=== PATIENT | female | born 1955 | race African-American/Black ===

== ENCOUNTER 2016-08-25 18:38 | Emergency (ER) | payer OTHER ==
[~2016-08-25 18:38] MED LIST: ALBU8.5H6 IH; AMLO10TA2 PO; ASPI1POW PO; CEPH500C PO; CHOL100017 PO; CITA20SO PO; CLON0.2T PO; FURO-68 PO; GLIM1TAB2 PO; HYDR-2762 PO; LEVO500T38 PO; LOSA100T6 PO; METF500T4 PO; METO50TA2 PO; METR500T PO; NITR0.4T SL; PANT40TA3 PO; POTA20TA12 PO
[2016-08-25 21:09] VITALS: BP 147/99
--- NOTE | 2016-08-25 21:17 | RAD ---
PROCEDURE CT head without contrast. CT cervical spine without contrast. HISTORY Fall, hit head, headache, right-sided neck pain TECHNIQUE Exposure: One or more of the following individualized dose reduction techniques were utilized for this exam: 1. Automated exposure control. 2. Adjustment of the mA and/or kV according to patient size. 3. Use of iterative reconstruction technique. [address] imaging skullbase to vertex. Helical noncontrast CT imaging of the cervical spine. COMPARISON CT head November 10, [address] Head: no intracranial hemorrhage, mass, hydrocephalus or infarction. Cerebral periventricular white matter hypoattenuation presumably chronic microvascular ischemic demyelination. Orbits, paranasal sinuses, mastoids and bones are unremarkable. CT cervical spine: Craniocervical junction intact. Cervical vertebral body height and alignment intact. No fracture of the cervical spine. Multilevel disc osteophytes with multilevel neural foraminal stenoses. Regions of mild spinal canal stenosis not excluded. Lung apices and paraspinal tissues are unremarkable. Posterior of the left thyroid lobe there is a 2 centimeter oblong peripherally calcified nodule. IMPRESSION CT Head: No acute intracranial CT abnormality. CT cervical spine: No acute osseous injury. Disc disease as described above. 2 centimeter oblong peripherally calcified nodule posterior left thyroid lobe likely an exophytic thyroid nodule or parathyroid adenoma. Unusual location of a aneurysm would be a less likely consideration. Electronically signed by: Mook Jorge MD (August 25, 2016 21:16:37)
[2016-08-25] MEDS ORDERED: HYDR-971 PO (21:44)
--- NOTE | 2016-08-25 21:44 | PHYS DOC ---
Past Medical History Past Medical History: Asthma, Diabetes-Type II, GERD, GI Bleed, Hepatitis Additional Past Medical Histor: sleep apnea Past Surgical History: Other Additional Past Surgical Histo: Umbilical hernia repair Alcohol Use: None Drug Use: None Adult General Chief Complaint Chief Complaint: MECHANICAL FALL HPI HPI This is a 61-year-old female who states she was in her shower around 3 or 4 AM in the morning and while getting out and drying off and putting on her pants, she fell and injured her right shoulder. She does state she hit her head as well. She denies any loss of consciousness. She tried resting throughout the day but now has significant right shoulder tenderness that radiates somewhat into her right neck as well. She denies any chest pain or shortness of breath. She has a mild headache with her symptoms. She is fully alert and oriented at this time and in no acute distress. Review of Systems Review of Systems Constitutional: Denies fever or chills [] Eyes: Denies change in visual acuity, redness, or eye pain [] HENT: Denies nasal congestion or sore throat [] Respiratory: Denies cough or shortness of breath [] Cardiovascular: No additional information not addressed in HPI [] GI: Denies abdominal pain, nausea, vomiting, bloody stools or diarrhea [] : Denies dysuria or hematuria [] Musculoskeletal: Denies back pain, has joint pain [] Integument: Denies rash or skin lesions [] Neurologic: Has headache, denies focal weakness or sensory changes [] Endocrine: Denies polyuria or polydipsia [] Allergies Allergies Allergies Coded Allergies Type Severity Reaction Last Updated Verified Iodinated Contrast Media - IV Dye Allergy Intermediate 12/07/15 Yes Physical Exam Physical Exam Constitutional: Well developed, well nourished, no acute distress, non-toxic appearance. [] HENT: Normocephalic, atraumatic, bilateral external ears normal, oropharynx moist, no oral exudates, nose normal. [] Eyes: PERRLA, EOMI, conjunctiva normal, no discharge. [] Neck: Normal range of motion, no tenderness, supple, no stridor. [] Cardiovascular:Heart rate regular rhythm, no murmur [] Lungs & Thorax: Bilateral breath sounds clear to auscultation [] Abdomen: Bowel sounds normal, soft, no tenderness, no masses, no pulsatile masses. [] Skin: Warm, dry, no erythema, no rash. [] Back: No tenderness, no CVA tenderness. [] Extremities: Moderate tenderness to the right shoulder with limited ROM in the right shoulder secondary to pain, no cyanosis, no clubbing, ROM limited in right shoulder secondary to pain, no edema. [] Neurologic: Alert and oriented X 3, normal motor function, normal sensory function, no focal deficits noted. [] Psychologic: Affect normal, judgement normal, mood normal. [] Current Patient Data Vital Signs Vital Signs Date Time Temp Pulse Resp B/P (MAP) Pulse Ox O2 Delivery O2 Flow Rate FiO2 08/25/16 18:47 98.1 96 22 162/107 (125) 98 Room Air 98.1 EKG EKG [] Radiology/Procedures Radiology/Procedures PROCEDURE CT head without contrast. CT cervical spine without contrast. HISTORY Fall, hit head, headache, right-sided neck pain TECHNIQUE Exposure: One or more of the following individualized dose reduction techniques were utilized for this exam: 1. Automated exposure control. 2. Adjustment of the mA and/or kV according to patient size. 3. Use of iterative reconstruction technique. [address] imaging skullbase to vertex. Helical noncontrast CT imaging of the cervical spine. COMPARISON CT head November 10, [address] Head: no intracranial hemorrhage, mass, hydrocephalus or infarction. Cerebral periventricular white matter hypoattenuation presumably chronic microvascular ischemic demyelination. Orbits, paranasal sinuses, mastoids and bones are unremarkable. CT cervical spine: Craniocervical junction intact. Cervical vertebral body height and alignment intact. No fracture of the cervical spine. Multilevel disc osteophytes with multilevel neural foraminal stenoses. Regions of mild spinal canal stenosis not excluded. Lung apices and paraspinal tissues are unremarkable. Posterior of the left thyroid lobe there is a 2 centimeter oblong peripherally calcified nodule. IMPRESSION CT Head: No acute intracranial CT abnormality. CT cervical spine: No acute osseous injury. Disc disease as described above. 2 centimeter oblong peripherally calcified nodule posterior left thyroid lobe likely an exophytic thyroid nodule or parathyroid adenoma. Unusual location of a aneurysm would be a less likely consideration. Electronically signed by: Mook Jorge MD (August 25, 2016 21:16:37) DICTATED and SIGNED BY: MOOK JORGE MD DATE: 08/25/162115 CC: VISHAL MANE DO; RICKY PORTILLO MD ~ Two-view the right shoulder to her by me shows what appears to be a possible right humeral head fracture but no other obvious abnormality. One view of the chest as interpreted by me did not reveal an acute cardiopulmonary process Course & Med Decision Making Course & Med Decision Making Pertinent Labs and Imaging studies reviewed. (See chart for details) 61-year-old female who had a fall injury to her right shoulder and a head and neck CT that were negative for any acute abnormalities. Right shoulder film shows a possible humeral fracture. Patient will be placed in a sling and given pain control and told to follow closely with her primary care doctor in the next several days for her symptoms. I counseled her that we will have the radiologist read the film overnight and will call her for any updates. I told the patient to remain in sling until she can receive follow-up. Return precautions were provided and acknowledged by the patient. Dragon Disclaimer Dragon Disclaimer This electronic medical record was generated, in whole or in part, using a voice recognition dictation system. Departure Departure Impression: Primary Impression: Right shoulder injury Additional Impression: Fall Disposition: HOME, SELF-CARE Admitting Physician: Other Condition: STABLE Referrals: RICKY PORTILLO MD (PCP) Patient Instructions: Arm Sling Use, [id number], Fall Prevention and Home Safety, [id number], Shoulder Pain Additional Instructions: Please follow up with your primary doctor in the next 2-3 days for your symptoms. Remain in your sling until that time. Take your medications as prescribed. Return to the ER if you develop any worsening of your symptoms. Scripts Hydrocodone/Apap 5-325 (NORCO 5-325 TABLET) 1 Each Tablet 1 TAB PO PRN Q6HRS Y for PAIN, #10 TAB 0 Refills Prov: VISHAL MANE DO 08/25/16 Problem Qualifiers VISHAL MANE DO August 25, 2016 21:44
--- NOTE | 2016-08-26 07:14 | RAD ---
Indication: Fall and right shoulder pain. Time of exam 1942 hours. Correlation is made with prior study from 06/27/2008. The distal clavicle is projected cephalad to the acromion consistent with acromioclavicular separation. Glenohumeral alignment is normal. Acromiohumeral space is normal. No fractures are seen. Impression: Findings consistent with acromioclavicular joint separation.
--- NOTE | 2016-08-26 07:15 | RAD ---
Indication: Trauma and fall with back pain. Time of exam 1950 hours. Comparison is made with prior chest from 05/26/2016. The heart is mildly enlarged but stable. The lungs are clear. The pulmonary vascularity is normal. No infiltrate, effusion or pneumothorax is detected. Impression: No acute cardiopulmonary process is detected.
== END 2016-08-25 21:53 | disposition home or self-care (01) ==
LOC: ER 18:38
DX: S49.91XA Unspecified injury of right shoulder and upper arm, initial encounter (principal); S09.90XA Unspecified injury of head, initial encounter; S19.9XXA Unspecified injury of neck, initial encounter; J45.909 Unspecified asthma, uncomplicated; E11.9 Type 2 diabetes mellitus without complications; K21.9 Gastro-esophageal reflux disease without esophagitis; G47.30 Sleep apnea, unspecified; Z91.041 Radiographic dye allergy status; W01.198A Fall on same level from slipping, tripping and stumbling with subsequent striking against other object, initial encounter; Y93.E1 Activity, personal bathing and showering; Y92.89 Other specified places as the place of occurrence of the external cause; Y99.8 Other external cause status
CPT/HCPCS: 70450; 71010; 72125; 73030; 99284-25

== ENCOUNTER 2016-12-01 21:24 | Emergency (ER) | payer OTHER ==
[~2016-12-01] VITALS: Ht 152.4 cm; Wt 102.1 kg
[~2016-12-01 21:24] MED LIST changes: +HYDR-971 PO; -LEVO500T38 PO; +LEVO500T59 PO
--- NOTE | 2016-12-01 21:43 | PHYS DOC ---
Past Medical History Past Medical History: Asthma, Diabetes-Type II, GERD, GI Bleed, Hepatitis Additional Past Medical Histor: sleep apnea Past Surgical History: Other Additional Past Surgical Histo: Umbilical hernia repair Smoking: Cigarettes Alcohol Use: None Drug Use: None Adult General Chief Complaint Chief Complaint: MULTIPLE COMPLAINTS HPI HPI Patient is a 61 year old female who presents with multiple complaints. She states the one that is bothering her tonight the most is her abdominal pain. It is intermittent and is started on Thursday. Nausea with some dry heaves. She feels feverish but no temperature taken. No diarrhea or blood in her stools. No urinary complaints. Review of Systems Review of Systems Constitutional: Sweats Eyes: Denies change in visual acuity, redness, or eye pain HENT: Denies nasal congestion or sore throat Respiratory: Some cough no shortness of breath Cardiovascular: No chest pain GI: POS abdominal pain, nausea, no vomiting but dry heaves, no bloody stools or diarrhea : Denies dysuria or hematuria Musculoskeletal: Denies back pain or joint pain Integument: Denies rash or skin lesions Neurologic: Denies headache, focal weakness or sensory changes Current Medications Current Medications Current Medications Medications (Trade) Dose Ordered Sig/Howard Start Time Stop Time Status Last Admin Dose Admin Ondansetron HCl (Zofran) 4 mg 1X ONCE 12/01/16 22:00 12/01/16 22:01 DC 12/01/16 22:10 4 MG Sodium Chloride 1,000 ml @ 100 mls/hr Q10H 12/01/16 22:00 12/01/16 23:06 DC 12/01/16 22:11 100 MLS/HR Allergies Allergies Allergies Coded Allergies Type Severity Reaction Last Updated Verified Iodinated Contrast- Oral and IV Dye Allergy Intermediate 12/07/15 Yes Physical Exam Physical Exam Constitutional: Obese Well developed, well nourished, no acute distress, non- toxic appearance. HENT: Normocephalic, atraumatic, bilateral external ears normal, oropharynx moist, no oral exudates, nose normal. Eyes: PERRLA, EOMI, conjunctiva normal, no discharge. Neck: Normal range of motion, no tenderness, supple, no stridor. Cardiovascular:Heart rate regular rhythm, no murmur Lungs & Thorax: Bilateral breath sounds clear to auscultation Abdomen: well healed midline incisional scar. Diffuse tenderness; no rebound or guarding. Bowel sounds normal, soft, no masses, no pulsatile masses. Skin: Warm, dry, no erythema, no rash. Back: No tenderness, no CVA tenderness. Extremities: No tenderness, no cyanosis, no clubbing, ROM intact, no edema. Neurologic: Alert and oriented X 3, normal motor function, normal sensory function, no focal deficits noted. Current Patient Data Vital Signs Vital Signs Date Time Temp Pulse Resp B/P (MAP) Pulse Ox O2 Delivery O2 Flow Rate FiO2 12/01/16 22:06 70 132/79 (96) 94 Room Air 12/01/16 21:30 98.7 20 98.7 Lab Values Laboratory Tests Test 12/01/16 22:00 White Blood Count 7.0 x10^3/uL (4.0-11.0) Red Blood Count 5.67 x10^6/uL (3.50-5.40) H Hemoglobin 14.1 g/dL (12.0-15.5) Hematocrit 43.0 % (36.0-47.0) Mean Corpuscular Volume 76 fL (79-100) L Mean Corpuscular Hemoglobin 25 pg (25-35) Mean Corpuscular Hemoglobin Concent 33 g/dL (31-37) Red Cell Distribution Width 16.5 % (11.5-14.5) H Platelet Count 224 x10^3/uL (140-400) Neutrophils (%) (Auto) 57 % (31-73) Lymphocytes (%) (Auto) 30 % (24-48) Monocytes (%) (Auto) 7 % (0-9) Eosinophils (%) (Auto) 4 % (0-3) H Basophils (%) (Auto) 2 % (0-3) Neutrophils # (Auto) 4.0 x10^3uL (1.8-7.7) Lymphocytes # (Auto) 2.1 x10^3/uL (1.0-4.8) Monocytes # (Auto) 0.5 x10^3/uL (0.0-1.1) Eosinophils # (Auto) 0.3 x10^3/uL (0.0-0.7) Basophils # (Auto) 0.1 x10^3/uL (0.0-0.2) Platelet Estimate Adequate (ADEQUATE) Giant Platelets Few Sodium Level 138 mmol/L (136-145) Potassium Level 3.0 mmol/L (3.5-5.1) L Chloride Level 94 mmol/L (98-107) L Carbon Dioxide Level 32 mmol/L (21-32) Anion Gap 12 (6-14) Blood Urea Nitrogen 43 mg/dL (7-20) H Creatinine 2.2 mg/dL (0.6-1.0) H Estimated GFR (Cockcroft-Gault) 27.5 BUN/Creatinine Ratio 20 (6-20) Glucose Level 211 mg/dL (70-99) H Calcium Level 11.2 mg/dL (8.5-10.1) H Total Bilirubin 0.3 mg/dL (0.2-1.0) Direct Bilirubin 0.1 mg/dL (0.0-0.2) Aspartate Amino Transferase (AST) 15 U/L (15-37) Alanine Aminotransferase (ALT) 17 U/L (14-59) Alkaline Phosphatase 89 U/L (46-116) Creatine Kinase 88 U/L (26-192) Creatine Kinase MB (Mass) 1.1 ng/mL (0.0-3.6) Creatine Kinase MB Relative Index 1.3 % (0-4) Troponin I Quantitative < 0.017 ng/mL (0.000-0.055) Total Protein 8.0 g/dL (6.4-8.2) Albumin 3.6 g/dL (3.4-5.0) Albumin/Globulin Ratio 0.8 (1.0-1.7) L Lipase 201 U/L (73-393) Laboratory Tests 12/01/16 22:00 Laboratory Tests 12/01/16 22:00 EKG EKG EKG interpreted by myself at 2136 PM: NSR, rate 76, nonspecific ST changes. No STEMI Course & Med Decision Making Course & Med Decision Making Pertinent Labs and Imaging studies reviewed. (See chart for details) Evaluated patient upon arrival to room 23. She has many multiple complaints but the most concerning one to her is her abdominal pain. Evaluation proceeded for the abdominal pain. At 2230 PM I was getting ready to review my findings thus far (still have lab pending) and she signed out AMA. Unclear why she is leaving but I believe it had something to do with her children making her leave. Went back to review the remainder of her lab and her BUN and CR are elevated but K is 3.0 . No prior chemistries here. Dragon Disclaimer Dragon Disclaimer This electronic medical record was generated, in whole or in part, using a voice recognition dictation system. Departure Departure Impression: Primary Impression: Abdominal pain Disposition: 07 AGAINST MEDICAL ADVICE Referrals: RICKY PORTILLO MD (PCP) Problem Qualifiers Primary Impression: Abdominal pain Abdominal location: generalized Qualified Codes: R10.84 - Generalized abdominal pain MICHAEL IVERSON MD Dec 01, 2016 21:43
[2016-12-01] MEDS ORDERED: IV NORMAL SALINE 1000ML BAG 1,000 ML IV SCH (22:00)
[2016-12-01] MEDS ORDERED: ONDANSETRON PF 4 MG/2 ML VIAL. IV ONE (22:00)
[2016-12-01 22:06] VITALS: BP 132/79
[2016-12-01 22:12] LABS: BASO # 0.1 x10^3/uL (0.0-0.2); BASO % 2 % (0-3); EOS % 4 % (0-3); HEMOGLOBIN 14.1 g/dL (12.0-15.5); LYMPH # 2.1 x10^3/uL (1.0-4.8); LYMPH % 30 % (24-48); MEAN CORPUSCULAR HEMOGLOBIN 25 pg (25-35); MEAN CORPUSCULAR HGB CONC 33 g/dL (31-37); MEAN CORPUSCULAR VOLUME 76 fL (79-100); MONO % 7 % (0-9); NEUT % 57 % (31-73); PLATELET COUNT 224 x10^3/uL (140-400); RED BLOOD COUNT 5.67 x10^6/uL (3.50-5.40); RED CELL DISTRIBUTION WIDTH 16.5 % (11.5-14.5)
[2016-12-01 22:21] LABS: CALCIUM 11.2 mg/dL (8.5-10.1); CREATININE 2.2 mg/dL (0.6-1.0); GFR 27.5
[2016-12-01 22:28] LABS: ALBUMIN 3.6 g/dL (3.4-5.0); ALBUMIN/GLOBULIN RATIO 0.8 (1.0-1.7); DIRECT BILIRUBIN 0.1 mg/dL (0.0-0.2); TOTAL BILIRUBIN 0.3 mg/dL (0.2-1.0)
[2016-12-01 22:57] LABS: PLT ESTIMATE ADEQUATE (ADEQUATE)
[2016-12-01 23:17] LABS: CKMB MASS 1.1 ng/mL (0.0-3.6)
--- NOTE | 2016-12-02 07:03 | EKG ---
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
== END 2016-12-01 22:30 | disposition left against medical advice (07) ==
LOC: ER 21:24
DX: R10.84 Generalized abdominal pain (principal); R11.0 Nausea; R50.9 Fever, unspecified; R61 Generalized hyperhidrosis; E66.9 Obesity, unspecified; J45.909 Unspecified asthma, uncomplicated; E11.9 Type 2 diabetes mellitus without complications; K21.9 Gastro-esophageal reflux disease without esophagitis; G47.30 Sleep apnea, unspecified; F17.210 Nicotine dependence, cigarettes, uncomplicated; Z91.041 Radiographic dye allergy status; Z86.19 Personal history of other infectious and parasitic diseases; Z68.41 Body mass index [BMI] 40.0-44.9, adult
CPT/HCPCS: 36415; 80053; 80076; 82553; 83690; 84484; 85025; 93005; 96374; 99285; J2405; J7030

== ENCOUNTER → 2016-12-26 | Outpatient (CLI) | payer OTHER ==
[2016-12-01 22:06] VITALS: BP 132/79
--- NOTE | 2016-12-26 14:32 | KCIC ---
Right lower extremity venous doppler ultrasound History: Pain in right lower extremity Comparison: None Findings: Multiple grayscale, color, and duplex spectral analysis sonographic images were acquired of the right lower extremity veins to evaluate for the presence of DVT. There is normal phasicity. Normal compression, color-flow, and augmentation is demonstrated from the right common femoral to the popliteal veins. There is normal color flow of the proximal profunda femoris vein. There is normal color flow of segments of the calf veins. There is right groin lymph node up to 3.7 x 0.8 x 2.8 cm. There is edema of the soft tissues. Impression: 1. There is no evidence of deep venous thrombosis from the right common femoral to popliteal veins. 2. There is nonspecific right groin lymph node although not considered significantly enlarged in short axis dimension. 3. There is edema of the soft tissues. Electronically signed by: Vincent Cohen MD (12/26/2016 2:29 PM) [id number]
== END | disposition home or self-care (01) ==
LOC: KCIC US 13:11
PROVIDERS: ATTEND Family Medicine
DX: M79.604 Pain in right leg (principal); R60.0 Localized edema
CPT/HCPCS: 93971

== ENCOUNTER → 2017-02-06 | Outpatient (CLI) | payer OTHER ==
--- NOTE | 2017-02-10 15:51 | KCIC ---
DATE: 02/06/2017 EXAM: MAMMO DILCIA SCREENING BILATERAL HISTORY: Asymptomatic screening mammogram. COMPARISON: Prior mammogram from 11/24/2013, 08/06/2011 This study was interpreted with the benefit of Computerized Aided Detection (CAD). The breast parenchyma shows scattered fibroglandular densities. Breast parenchyma level B. FINDINGS: Bilateral CC and MLO views of the breasts were performed. Bilateral breast tomosynthesis was performed in CC and MLO projections. Right breast: There are no suspicious microcalcifications, masses or areas of architectural distortion. Left breast: There are no suspicious microcalcifications, masses or areas of architectural distortion. Findings are stable from prior mammogram. IMPRESSION: Negative bilateral mammogram. Recommend annual screening mammography. BI-RADS CATEGORY: 1 NEGATIVE RECOMMENDED FOLLOW-UP: 12M 12 MONTH FOLLOW-UP PQRS compliance statement: Patient information was entered into a reminder system with a target due date 02/06/2018 for the next mammogram. Mammography is a sensitive method for finding small breast cancers, but it does not detect them all and is not a substitute for careful clinical examination. A negative mammogram does not negate a clinically suspicious finding and should not result in delay in biopsying a clinically suspicious abnormality. "Our facility is accredited by the [employer] Mammography [employer]."
== END | disposition home or self-care (01) ==
LOC: KCIC MAMMO 15:45
PROVIDERS: ATTEND Family Medicine
DX: Z12.31 Encounter for screening mammogram for malignant neoplasm of breast (principal)
CPT/HCPCS: 77063; G0202; 77067

== ENCOUNTER → 2018-02-08 | Outpatient (CLI) | payer OTHER ==
[2017-02-25 14:37] VITALS: BP 162/97
[~2018-02-08] MED LIST changes: -AMLO10TA2 PO; +AMLO10TA6 PO; +ATEN50TA PO; +ATOR40TA59 PO; +BUTA1TAB23 PO; +DOCU-109 PO; +HYDR100T24 PO; +HYDR25TA9 PO; +INSU100V8 SQ; -LOSA100T6 PO; +LOSA100T7 PO; +LOSA1TAB7 PO; +METF500T16 PO; -METF500T4 PO; -METO50TA2 PO; +METO50TA6 PO; +MOME13HF2 IH; +POLY17PO29 PO; +PROVENTIL HFA6.7 GM IH
--- NOTE | 2018-02-08 17:23 | KCIC ---
History: Routine screening. Technique: Bilateral digital mammographic routine views were obtained with CAD - computer aided detection. Comparison: February 06, 2017. Findings: Breast Tissue Density B :The breast tissue is composed of mixed fatty and fibroglandular tissue. There are no suspicious masses, microcalcifications or areas of architectural distortion. Impression: Negative mammogram. BI-RADS Category 1: Negative. Normal interval followup. A mammogram does not have 100% sensitivity and therefore a negative imaging study should not delay further work up of a suspicious abnormality. The patient will receive a letter with the results in the mail. Patient information is entered into the reminder system with a target due date for the next screening mammogram. The patient will receive a reminder. "Our facility is accredited by the [employer] Mammography Program." Electronically signed by: Dave Oconnor III, MD (02/08/2018 5:20 PM) [id number]
== END | disposition home or self-care (01) ==
LOC: KCIC MAMMO 15:01
PROVIDERS: ATTEND Family Medicine
DX: Z12.31 Encounter for screening mammogram for malignant neoplasm of breast (principal)
CPT/HCPCS: 77067

== ENCOUNTER 2018-02-22 09:43 | Emergency (ER) | payer OTHER ==
[~2018-02-22] VITALS: Ht 152.4 cm; Wt 83.0 kg
[~2018-02-22 09:43] MED LIST changes: -ATEN50TA PO; -DOCU-109 PO; -HYDR100T24 PO; -HYDR25TA9 PO; -LOSA1TAB7 PO; -MOME13HF2 IH; -POLY17PO29 PO; -PROVENTIL HFA6.7 GM IH
[2018-02-22] MEDS ORDERED: ONDANSETRON PF 4 MG/2 ML VIAL. IV ONE (10:15)
[2018-02-22] MEDS ORDERED: MORPHINE SULFATE 4 MG/ML VIAL. IV ONE (10:15)
--- NOTE | 2018-02-22 10:36 | PHYS DOC ---
Past Medical History Past Medical History: Asthma, Diabetes-Type II, GERD, GI Bleed, Hypertension, Hepatitis Additional Past Medical Histor: sleep apnea Past Surgical History: Other Additional Past Surgical Histo: Umbilical hernia repair Alcohol Use: None Drug Use: None Adult General Chief Complaint Chief Complaint: ABDOMINAL PAIN [facility] HPI Patient is a 62 year old female who presents with abdominal pain. Patient has been having symptoms over the last 4 days. She describes diffuse abdominal pain with some distention. She has also been constipated over the same time. Patient does have a prior history of diverticulitis and did ultimately have to have some surgery following an episode of persistent bleeding. She also has had surgery on her abdomen for hernia repair. She denies vomiting but has had emesis. No fever. Denies urinary symptoms. No chest pain or shortness of breath. Review of Systems Review of Systems Constitutional: Denies fever Eyes: Denies change in visual acuity HENT: Denies nasal congestion Respiratory: Denies cough Cardiovascular: No additional information not addressed in HPI GI: Denies vomiting : Denies dysuria or hematuria Musculoskeletal: Denies back pain Integument: Denies rash Neurologic: Denies headache Endocrine: Denies polyuria All other systems were reviewed and found to be within normal limits, except as documented in this note. Current Medications Current Medications Current Medications Medications (Trade) Dose Ordered Sig/[facility] Start Time Stop Time Status Last Admin Dose Admin Clonidine HCl (Catapres) 0.2 mg 1X ONCE 02/22/18 12:15 02/22/18 12:16 DC 02/22/18 12:51 0.2 MG Morphine Sulfate (Morphine Sulfate) 4 mg 1X ONCE 02/22/18 10:15 02/22/18 10:20 DC 02/22/18 10:56 4 MG Ondansetron HCl (Zofran) 4 mg 1X ONCE 02/22/18 10:15 02/22/18 10:20 DC 02/22/18 10:53 4 MG Allergies Allergies Allergies Coded Allergies Type Severity Reaction Last Updated Verified Iodinated Contrast- Oral and IV Dye Allergy Intermediate 12/07/15 Yes Physical Exam Physical Exam Constitutional: Well developed, well nourished, appears uncomfortable 2/2 pain HENT: Normocephalic, atraumatic, bilateral external ears normal, oropharynx moist Eyes: PERRLA, EOMI, conjunctiva normal Neck: Normal range of motion Cardiovascular:Heart rate regular rhythm, no murmur Lungs & Thorax: Bilateral breath sounds clear to auscultation Abdomen: mildly distended abdomen with diffuse TTP but no guarding or rebound Skin: Warm, dry, no erythema Extremities: No edema Neurologic: Alert and oriented X 3 Psychologic: Affect normal Current Patient Data Vital Signs Vital Signs Date Time Temp Pulse Resp B/P (MAP) Pulse Ox O2 Delivery O2 Flow Rate FiO2 02/22/18 12:51 74 193/103 02/22/18 10:56 91 Room Air 02/22/18 09:44 99.5 20 99.5 Lab Values Laboratory Tests Test 02/22/18 09:54 02/22/18 10:43 02/22/18 11:03 Urine Collection Type Void Urine Color Yellow Urine Clarity Clear Urine pH 7.0 Urine Specific [place] 1.015 Urine Protein >=300 mg/dL (NEG-TRACE) Urine Glucose (UA) Negative mg/dL (NEG) Urine Ketones (Stick) Negative mg/dL (NEG) Urine Blood Negative (NEG) Urine Nitrite Negative (NEG) Urine Bilirubin Negative (NEG) Urine Urobilinogen Dipstick 1.0 mg/dL (0.2 mg/dL) Urine Leukocyte Esterase Negative (NEG) Urine RBC Occ /HPF (0-2) Urine WBC 1-4 /HPF (0-4) Urine Squamous Epithelial Cells Mod /LPF Urine Bacteria Few /HPF (0-FEW) White Blood Count 11.4 x10^3/uL (4.0-11.0) H Red Blood Count 5.53 x10^6/uL (3.50-5.40) H Hemoglobin 13.7 g/dL (12.0-15.5) Hematocrit 42.4 % (36.0-47.0) Mean Corpuscular Volume 77 fL (79-100) L Mean Corpuscular Hemoglobin 25 pg (25-35) Mean Corpuscular Hemoglobin Concent 32 g/dL (31-37) Red Cell Distribution Width 17.0 % (11.5-14.5) H Platelet Count 265 x10^3/uL (140-400) Neutrophils (%) (Auto) 65 % (31-73) Lymphocytes (%) (Auto) 23 % (24-48) L Monocytes (%) (Auto) 8 % (0-9) Eosinophils (%) (Auto) 3 % (0-3) Basophils (%) (Auto) 1 % (0-3) Neutrophils # (Auto) 7.4 x10^3uL (1.8-7.7) Lymphocytes # (Auto) 2.6 x10^3/uL (1.0-4.8) Monocytes # (Auto) 0.9 x10^3/uL (0.0-1.1) Eosinophils # (Auto) 0.3 x10^3/uL (0.0-0.7) Basophils # (Auto) 0.1 x10^3/uL (0.0-0.2) Sodium Level 147 mmol/L (136-145) H Potassium Level 3.5 mmol/L (3.5-5.1) Chloride Level 105 mmol/L (98-107) Carbon Dioxide Level 32 mmol/L (21-32) Anion Gap 10 (6-14) Blood Urea Nitrogen 30 mg/dL (7-20) H Creatinine 2.3 mg/dL (0.6-1.0) H Estimated GFR (Cockcroft-Gault) 26.1 Glucose Level 69 mg/dL (70-99) L Calcium Level 10.0 mg/dL (8.5-10.1) Total Bilirubin 0.2 mg/dL (0.2-1.0) Direct Bilirubin 0.1 mg/dL (0.0-0.2) Aspartate Amino Transferase (AST) 22 U/L (15-37) Alanine Aminotransferase (ALT) 30 U/L (14-59) Alkaline Phosphatase 117 U/L (46-116) H Troponin I Quantitative 0.051 ng/mL (0.000-0.055) KA-Raq-G-Type Natriuretic Peptide 1835 pg/mL (0-124) H Total Protein 6.9 g/dL (6.4-8.2) Albumin 3.0 g/dL (3.4-5.0) L Lipase 190 U/L (73-393) Lactic Acid Level 1.0 mmol/L (0.4-2.0) Laboratory Tests 02/22/18 10:43 Laboratory Tests 02/22/18 10:43 EKG EKG No STEMI Interpretation Time: 10:48 Radiology/Procedures Radiology/Procedures Findings: Limited images of lung bases are clear. Heart size upper limits of normal. Small pericardial effusion. No significant pleural effusion. Solid abdominal viscera not well evaluated in the absence of contrast material. No apparent attenuation abnormality of the liver or spleen. Pancreas, adrenal glands and gallbladder are unremarkable. 5 mm calcific stone at the lower pole right kidney. 3 mm calcific stone at the left kidney midpole. No apparent ureteral stone or hydronephrosis. Mild inflammatory stranding in the perinephric fat, increased from prior exam. Calcifications at the ovaries and along the gonadal veins, unchanged. There is a exophytic 1.4 cm low-density focus at the lower pole left kidney that measures 26 Hounsfield units. This measured about 7 mm previously. Unopacified GI tract normal in caliber and contour. No focal bowel wall thickening. No inflammatory stranding in the mesentery. No ascites or lymphadenopathy. The appendix is not clearly identified. No inflammatory changes in the right lower quadrant. There are a few scattered diverticula within the colon. No pericolic inflammatory changes. The abdominal aorta is normal in caliber. No retroperitoneal or mesenteric lymphadenopathy. Images of the pelvis show mildly distended urinary bladder. Uterus and adnexa are unremarkable. No free fluid or lymphadenopathy. Bone windows show no acute findings. Mild multilevel spondylosis. IMPRESSION: 1. Bilateral nephrolithiasis, nonobstructive. 2. Mild inflammatory stranding in the bilateral perinephric fat, new from prior study, nonspecific. This could be related to medical renal disease or pyelonephritis. Correlate clinically. 3. Small exophytic 1.4 cm low-density focus at the lower pole left kidney appears to somewhat increased in size and measures about 26Hounsfield units . This is indeterminate. Follow-up dedicated renal CT with and without contrast or ultrasound. 4. Diverticulosis with no evidence of acute diverticulitis. 5. Small pericardial effusion. Course & Med Decision Making Course & Med Decision Making Pertinent Labs and Imaging studies reviewed. (See chart for details) 10:10: Patient is seen and examined. Orders for standard abdominal pain workup. Noted to be hypertensive. Will give medications for pain. After that, will give meds for blood pressure. 12:05: Patient is currently resting comfortable. Her pain is gone. She is requesting food. Labs are stable. No physical exam or UA findings to explain the CT scan findings suspect over read. I spent a large amount of time trying to figure out this patient's medication and why her blood pressure is so high. I did call her primary care provider's office. Also spoke to her pharmacy. The patient had been treated with losartan previously and HCTZ. She had failed therapy with this medication. Following that, she was placed on Benicar 40/25 but this medication would not processed through her insurance. The primary care office was notified of this and a new prescription for Avalide 300/25 was prescribed by her primary care physician. This particular strength was not available at the pharmacy so the patient is not currently taking blood pressure medication. She did present to the emergency department with systolic blood pressures in the 220s. After speaking with the pharmacy that the patient normally uses, the [facility], there is an available strength of Avalide of 300 mg/12.5 mg. The patient is provided a new prescription for this strength and she is added an additional 12.5 mg regular hydrochlorothiazide daily. This is explained to the patient and her family member. The prescriptions were called in by telephone. Patient will be discharged home today and she is advised to keep her already scheduled appointment with her primary care doctor on the . Return to the ER for any new or worsening symptoms. Given her subjective history of constipation, the patient is also provided docusate and MiraLAX for use at home. Dragon Disclaimer Dragon Disclaimer This electronic medical record was generated, in whole or in part, using a voice recognition dictation system. Departure Departure Referrals: RICKY PORTILLO MD (PCP) Scripts Polyethylene Glycol 3350 (MIRALAX) 17 Gm Powd.pack 1 PACKET PO DAILY, #30 PACKET 3 Refills Prov: THOMAS SORENSEN DO 02/22/18 Docusate Sodium (COLACE) 100 Mg Capsule 100 MG PO BID, #60 CAP Prov: THOMAS SORENSEN DO 02/22/18 THOMAS SORENSEN DO Feb 22, 2018 10:36
[2018-02-22 10:37] LABS: BILIRUBIN,URINE NEGATIVE (NEG); CLARITY,URINE CLEAR; COLOR,URINE YELLOW; NITRITE,URINE NEGATIVE (NEG); PROTEIN,URINE >=300 mg/dL (NEG-TRACE)
[2018-02-22 10:48] LABS: BACTERIA,URINE FEW /HPF (0-FEW); RBC,URINE OCC /HPF (0-2); SQUAMOUS EPITHELIAL CELL,UR MOD /LPF
--- NOTE | 2018-02-22 10:48 | RAD ---
CT ABDOMEN PELVIS WO CONTRAST dated 02/22/2018 10:25 AM Indication: Abdominal pain.ABDOMEN PAIN, H/O DIVERTICULITIS. PREVIOUS. Comparison: 02/06/2016 Technique: Contiguous axial imaging the abdomen and pelvis performed without the administration of IV or oral contrast. One or more of the following individualized dose reduction techniques were utilized for this examination: 1. Automated exposure control 2. Adjustment of the mA and/or kV according to patient size 3. Use of iterative reconstruction technique Findings: Limited images of lung bases are clear. Heart size upper limits of normal. Small pericardial effusion. No significant pleural effusion. Solid abdominal viscera not well evaluated in the absence of contrast material. No apparent attenuation abnormality of the liver or spleen. Pancreas, adrenal glands and gallbladder are unremarkable. 5 mm calcific stone at the lower pole right kidney. 3 mm calcific stone at the left kidney midpole. No apparent ureteral stone or hydronephrosis. Mild inflammatory stranding in the perinephric fat, increased from prior exam. Calcifications at the ovaries and along the gonadal veins, unchanged. There is a exophytic 1.4 cm low-density focus at the lower pole left kidney that measures 26 Hounsfield units. This measured about 7 mm previously. Unopacified GI tract normal in caliber and contour. No focal bowel wall thickening. No inflammatory stranding in the mesentery. No ascites or lymphadenopathy. The appendix is not clearly identified. No inflammatory changes in the right lower quadrant. There are a few scattered diverticula within the colon. No pericolic inflammatory changes. The abdominal aorta is normal in caliber. No retroperitoneal or mesenteric lymphadenopathy. Images of the pelvis show mildly distended urinary bladder. Uterus and adnexa are unremarkable. No free fluid or lymphadenopathy. Bone windows show no acute findings. Mild multilevel spondylosis. IMPRESSION: 1. Bilateral nephrolithiasis, nonobstructive. 2. Mild inflammatory stranding in the bilateral perinephric fat, new from prior study, nonspecific. This could be related to medical renal disease or pyelonephritis. Correlate clinically. 3. Small exophytic 1.4 cm low-density focus at the lower pole left kidney appears to somewhat increased in size and measures about 26Hounsfield units . This is indeterminate. Follow-up dedicated renal CT with and without contrast or ultrasound. 4. Diverticulosis with no evidence of acute diverticulitis. 5. Small pericardial effusion. Electronically signed by: Jose Roberto Pennington MD (02/22/2018 10:45 AM) [id number]
[2018-02-22 10:52] LABS: BASO # 0.1 x10^3/uL (0.0-0.2); BASO % 1 % (0-3); EOS # 0.3 x10^3/uL (0.0-0.7); EOS % 3 % (0-3); HEMATOCRIT 42.4 % (36.0-47.0); HEMOGLOBIN 13.7 g/dL (12.0-15.5); LYMPH # 2.6 x10^3/uL (1.0-4.8); LYMPH % 23 % (24-48); MEAN CORPUSCULAR HEMOGLOBIN 25 pg (25-35); MEAN CORPUSCULAR HGB CONC 32 g/dL (31-37); MEAN CORPUSCULAR VOLUME 77 fL (79-100); MONO # 0.9 x10^3/uL (0.0-1.1); MONO % 8 % (0-9); NEUT # 7.4 x10^3uL (1.8-7.7); NEUT % 65 % (31-73); PLATELET COUNT 265 x10^3/uL (140-400); RED BLOOD COUNT 5.53 x10^6/uL (3.50-5.40); WHITE BLOOD COUNT 11.4 x10^3/uL (4.0-11.0)
[2018-02-22 11:11] LABS: CREATININE 2.3 mg/dL (0.6-1.0); GFR 26.1; POTASSIUM 3.5 mmol/L (3.5-5.1)
--- NOTE | 2018-02-22 11:11 | EKG ---
[facility] [address] [place] [address] Test Date: 2018-02-22 Test Time: 10:46:33 Pat Name: HERRERA BERKOWITZ Department: Room: Gender: F Bark Tanner: SATURN[place] : [id number] Requested By: THOMAS SORENSEN Order Number: [id number] Reading MD: Castro Junior MD Measurements Intervals Sharps Rate: 70 P: 0 WA: 128 QRS: -16 QRSD: 126 T: 32 QT: 442 QTc: 480 Interpretive Statements SINUS RHYTHM CONSIDER PRIOR SEPTAL INFARCT Electronically Signed On 02-22-2018 15:34:56 [employer] by Castro Junior MD
[2018-02-22 11:13] LABS: DIRECT BILIRUBIN 0.1 mg/dL (0.0-0.2); TOTAL BILIRUBIN 0.2 mg/dL (0.2-1.0); TOTAL PROTEIN 6.9 g/dL (6.4-8.2)
[2018-02-22] MEDS ORDERED: cloNIDine HCL 0.1 MG TABLET PO ONE (12:15)
[2018-02-22 12:51] VITALS: BP 193/103
[2018-02-22] MEDS ORDERED: DOCU-109 PO (13:06)
[2018-02-22] MEDS ORDERED: POLY17PO29 PO (13:06)
[2018-02-23] MEDS ORDERED: HYDR100T24 PO (11:08)
[2018-02-23] MEDS ORDERED: ATEN50TA PO (11:08)
[2018-02-23] MEDS ORDERED: MOME13HF2 IH (14:29)
[2018-02-23] MEDS ORDERED: HYDR25TA9 PO (14:29)
[2018-02-23] MEDS ORDERED: PROVENTIL HFA6.7 GM IH (14:29)
[2018-02-25] MEDS ORDERED: LOSA1TAB7 PO (12:17)
== END 2018-02-22 14:25 | disposition home or self-care (01) ==
LOC: ER 09:43
DX: R10.84 Generalized abdominal pain (principal); K59.00 Constipation, unspecified; R14.0 Abdominal distension (gaseous); K21.9 Gastro-esophageal reflux disease without esophagitis; J45.909 Unspecified asthma, uncomplicated; E11.9 Type 2 diabetes mellitus without complications; I10 Essential (primary) hypertension; Z98.890 Other specified postprocedural states; Z91.041 Radiographic dye allergy status
CPT/HCPCS: 36415; 74176; 80048; 80076; 81001; 83605; 83690; 83880; 84484; 85025; 93005; 96374; 96375; 99285; J2270; J2405

== ENCOUNTER 2018-02-23 10:23 | Inpatient (IN) | payer OTHER ==
[~2018-02-23] VITALS: Ht 152.4 cm; Wt 92.8 kg
[2018-02-23] VITALS (18 sets, daily range): BP systolic 100–174; BP diastolic 58–89
[~2018-02-23 10:23] MED LIST changes: +DOCU-109 PO; +POLY17PO29 PO
[2018-02-23] MEDS ORDERED: ATEN50TA PO (11:08)
[2018-02-23] MEDS ORDERED: HYDR100T24 PO (11:08)
[2018-02-23 11:52] LABS: BASO # 0.1 x10^3/uL (0.0-0.2); BASO % 1 % (0-3); EOS # 0.3 x10^3/uL (0.0-0.7); EOS % 3 % (0-3); HEMATOCRIT 39.3 % (36.0-47.0); HEMOGLOBIN 12.4 g/dL (12.0-15.5); LYMPH # 1.9 x10^3/uL (1.0-4.8); LYMPH % 19 % (24-48); MEAN CORPUSCULAR HEMOGLOBIN 25 pg (25-35); MEAN CORPUSCULAR HGB CONC 32 g/dL (31-37); MEAN CORPUSCULAR VOLUME 78 fL (79-100); MONO # 0.7 x10^3/uL (0.0-1.1); MONO % 8 % (0-9); NEUT # 6.7 x10^3uL (1.8-7.7); NEUT % 69 % (31-73); PLATELET COUNT 217 x10^3/uL (140-400); RED BLOOD COUNT 5.06 x10^6/uL (3.50-5.40); RED CELL DISTRIBUTION WIDTH 17.4 % (11.5-14.5); WHITE BLOOD COUNT 9.6 x10^3/uL (4.0-11.0)
[2018-02-23] MEDS ORDERED: LABETALOL 20 MG/4 ML DISP.SYRIN. IVP ONE (12:00)
[2018-02-23] MEDS ORDERED: NITROGLYCERIN OINT 1 GM PACKET. TP ONE (12:00)
[2018-02-23 12:05] LABS: CALCIUM 9.2 mg/dL (8.5-10.1); CREATININE 2.6 mg/dL (0.6-1.0); GFR 22.6; POTASSIUM 3.7 mmol/L (3.5-5.1)
[2018-02-23 12:08] LABS: ALBUMIN 2.6 g/dL (3.4-5.0); DIRECT BILIRUBIN 0.1 mg/dL (0.0-0.2); TOTAL BILIRUBIN 0.2 mg/dL (0.2-1.0); TOTAL PROTEIN 6.5 g/dL (6.4-8.2)
[2018-02-23] MEDS ORDERED: LIDO:MAALOX 1:1 20 ML SINGLE DOSE. SWSW ONE (12:45)
--- NOTE | 2018-02-23 13:46 | RAD ---
Complete abdomen ultrasound study Clinical indications: Epigastric pain. FINDINGS: The pancreas is homogeneous without focal enlargement. The intrahepatic portion of the IVC is unremarkable. No focal aneurysmal dilatation of the proximal abdominal aorta is seen. The mid and distal abdominal aorta are obscured due to overlying bowel gas. The liver measures 19.9 cm in length which is mildly enlarged. No focal hepatic mass is seen otherwise. The gallbladder is contracted. This could be due to recent meal. No gallstone is evident. The extra hepatic bile duct measures 5 mm in caliber which is normal. The length of the right kidney is 13.2 cm and the length of the left kidney is 13.2 cm. No hydronephrosis or renal mass or perinephric fluid collection is seen on either side. A small 6 mm cyst of the upper pole of the the right kidney is seen. There is a small cyst of the left kidney measuring 18 mm. The spleen measures 8.6 cm in length which is normal. No ascites is evident. IMPRESSION: Hepatomegaly. The gallbladder is contracted which may be due to recent meal. Electronically signed by: Jayant Saenz MD (02/23/2018 1:43 PM) [facility] [place]
--- NOTE | 2018-02-23 14:25 | PHYS DOC ---
Past Medical History Past Medical History: Asthma, Diabetes-Type II, GERD, GI Bleed, Hypertension, Hepatitis Additional Past Medical Histor: sleep apnea; ulcers; GI bleed Past Surgical History: Other Additional Past Surgical Histo: Umbilical hernia repair; colon resection Alcohol Use: None Drug Use: None Adult General Chief Complaint Chief Complaint: ABDOMINAL PAIN HPI HPI Patient is a 62 year old female who presents with diffuse upper abdominal pain. Patient was evaluated yesterday for the same complaint. At that time, she was noted to have significant hypertension. She was discharged home. Her workup was negative other than some perinephric fat stranding but no UA findings to correlate. She was advised to return to the emergency department if her pain symptoms return or persisted. She returns today complaining of continued abdominal pain, primarily in the epigastrium. No fever or chills. No nausea or vomiting. On arrival to the ER today, she has a systolic blood pressure of 240 with a diastolic of 120 Review of Systems Review of Systems Constitutional: Denies fever or chills Eyes: Denies change in visual acuity HENT: Denies nasal congestion Respiratory: Denies cough or shortness of breath Cardiovascular: No additional information not addressed in HPI GI: Denies nausea, vomiting, bloody stools or diarrhea : Denies dysuria or hematuria Musculoskeletal: Denies back pain Integument: Denies rash or skin lesions Neurologic: Denies headache Endocrine: Denies polyuria All other systems were reviewed and found to be within normal limits, except as documented in this note. Current Medications Current Medications Current Medications Medications (Trade) Dose Ordered Sig/[facility] Start Time Stop Time Status Last Admin Dose Admin Labetalol HCl (Normodyne Iv Push) 10 mg 1X ONCE 02/23/18 12:00 02/23/18 12:01 DC 02/23/18 11:54 10 MG Multi-Ingredient Mouthwash/Gargle (Gi Cocktail) 20 ml 1X ONCE 02/23/18 12:45 02/23/18 12:46 DC 02/23/18 12:45 20 ML Nicardipine HCl 50 mg/Sodium Chloride 270 ml @ 27 mls/hr CONT PRN 02/23/18 12:45 Cancel Nicardipine/ Sodium Chloride 200 ml @ 0 mls/hr CONT PRN 02/23/18 12:45 02/23/18 12:50 25 MLS/HR Nitroglycerin (Nitro-Bid Oint) 1 inch 1X ONCE 02/23/18 12:00 02/23/18 12:01 DC 02/23/18 11:55 1 INCH Allergies Allergies Allergies Coded Allergies Type Severity Reaction Last Updated Verified Iodinated Contrast- Oral and IV Dye Allergy Intermediate 02/23/18 Yes Physical Exam Physical Exam Constitutional: Well developed, well nourished, no acute distress HENT: Normocephalic, atraumatic, bilateral external ears normal, oropharynx moist Eyes: PERRLA, EOMI, conjunctiva normal Neck: Normal range of motion, no tenderness Cardiovascular:Heart rate regular rhythm, no murmur Lungs & Thorax: Bilateral breath sounds clear to auscultation Abdomen: subjective TTP over epigastrium. No guarding or rebound. Otherwise normal exam Skin: Warm, dry, no erythema Back: No tenderness, no CVA tenderness Extremities: No tenderness Neurologic: Alert and oriented X 3 Psychologic: Affect normal Current Patient Data Vital Signs Vital Signs Date Time Temp Pulse Resp B/P (MAP) Pulse Ox O2 Delivery O2 Flow Rate FiO2 02/23/18 12:47 74 18 229/114 (152) 98 02/23/18 12:10 Nasal Cannula 2.0 02/23/18 10:40 99.0 99.0 Lab Values Laboratory Tests Test 02/23/18 11:15 White Blood Count 9.6 x10^3/uL (4.0-11.0) Red Blood Count 5.06 x10^6/uL (3.50-5.40) Hemoglobin 12.4 g/dL (12.0-15.5) Hematocrit 39.3 % (36.0-47.0) Mean Corpuscular Volume 78 fL (79-100) L Mean Corpuscular Hemoglobin 25 pg (25-35) Mean Corpuscular Hemoglobin Concent 32 g/dL (31-37) Red Cell Distribution Width 17.4 % (11.5-14.5) H Platelet Count 217 x10^3/uL (140-400) Neutrophils (%) (Auto) 69 % (31-73) Lymphocytes (%) (Auto) 19 % (24-48) L Monocytes (%) (Auto) 8 % (0-9) Eosinophils (%) (Auto) 3 % (0-3) Basophils (%) (Auto) 1 % (0-3) Neutrophils # (Auto) 6.7 x10^3uL (1.8-7.7) Lymphocytes # (Auto) 1.9 x10^3/uL (1.0-4.8) Monocytes # (Auto) 0.7 x10^3/uL (0.0-1.1) Eosinophils # (Auto) 0.3 x10^3/uL (0.0-0.7) Basophils # (Auto) 0.1 x10^3/uL (0.0-0.2) Sodium Level 147 mmol/L (136-145) H Potassium Level 3.7 mmol/L (3.5-5.1) Chloride Level 107 mmol/L (98-107) Carbon Dioxide Level 31 mmol/L (21-32) Anion Gap 9 (6-14) Blood Urea Nitrogen 33 mg/dL (7-20) H Creatinine 2.6 mg/dL (0.6-1.0) H Estimated GFR (Cockcroft-Gault) 22.6 Glucose Level 115 mg/dL (70-99) H Calcium Level 9.2 mg/dL (8.5-10.1) Total Bilirubin 0.2 mg/dL (0.2-1.0) Direct Bilirubin 0.1 mg/dL (0.0-0.2) Aspartate Amino Transferase (AST) 16 U/L (15-37) Alanine Aminotransferase (ALT) 25 U/L (14-59) Alkaline Phosphatase 105 U/L (46-116) Total Protein 6.5 g/dL (6.4-8.2) Albumin 2.6 g/dL (3.4-5.0) L Lipase 169 U/L (73-393) Laboratory Tests 02/23/18 11:15 Laboratory Tests 02/23/18 11:15 EKG EKG [] Radiology/Procedures Radiology/Procedures FINDINGS: The pancreas is homogeneous without focal enlargement. The intrahepatic portion of the IVC is unremarkable. No focal aneurysmal dilatation of the proximal abdominal aorta is seen. The mid and distal abdominal aorta are obscured due to overlying bowel gas. The liver measures 19.9 cm in length which is mildly enlarged. No focal hepatic mass is seen otherwise. The gallbladder is contracted. This could be due to recent meal. No gallstone is evident. The extra hepatic bile duct measures 5 mm in caliber which is normal. The length of the right kidney is 13.2 cm and the length of the left kidney is 13.2 cm. No hydronephrosis or renal mass or perinephric fluid collection is seen on either side. A small 6 mm cyst of the upper pole of the the right kidney is seen. There is a small cyst of the left kidney measuring 18 mm. The spleen measures 8.6 cm in length which is normal. No ascites is evident. IMPRESSION: Hepatomegaly. The gallbladder is contracted which may be due to recent meal. Course & Med Decision Making Course & Med Decision Making Pertinent Labs and Imaging studies reviewed. (See chart for details) Patient was seen in the emergency department for the second time in 2 days for abdominal pain. During the first visit, the patient was noted to have significant high blood pressure. There were some new prescriptions provided as she had not been taking a recent blood pressure prescription which was provided by her primary care physician. Her workup for abdominal pain was unremarkable. She had some perinephritic fat stranding on the CT scan but no UA findings to correlate for pyelonephritis. Her abdominal exam was benign and she was feeling better so she was discharged to home. She returns today with continued pain symptoms. Her workup today again did not reveal any acute changes from yesterday. She did not have repeat CT scan today. She did have ultrasound of the right upper quadrant which did not reveal an acute cause for her pain. Her blood pressure today was severely elevated with systolics in the 230s. She was given a dose of labetalol IV and Nitropaste was placed on her chest but these did not improve her hypertension. Following this, a nicardipine drip was started and titrated. The patient did respond adequately to this therapy. She is noted to the ICU only because of the need for possible titration of her drip. Her EKG yesterday and troponins were nonacute. These were not repeated today. Consult was placed for her primary petroleum geology faculty member to evaluate, Dr. Gill. Patient is admitted to her primary care physician. Dragon Disclaimer Dragon Disclaimer This electronic medical record was generated, in whole or in part, using a voice recognition dictation system. Departure Departure Referrals: RICKY PORTILLO MD (PCP) THOMAS SORENSEN DO Feb 23, 2018 14:25
[2018-02-23] MEDS ORDERED: MOME13HF2 IH (14:29)
[2018-02-23] MEDS ORDERED: HYDR25TA9 PO (14:29)
[2018-02-23] MEDS ORDERED: PROVENTIL HFA6.7 GM IH (14:29)
[2018-02-23] MEDS ORDERED: NON FORMULARY ITEM (Albuterol Sulfate (Proventil Hfa Inhaler) 1 PUFF) IH PRN (14:30)
[2018-02-23] MEDS: POLYETHYLENE GLYCOL 3350 17 GM PACKET. PO SCH (15:00)
[2018-02-23] MEDS: GLIMEPIRIDE 2 MG TABLET. PO SCH (15:13)
[2018-02-23] MEDS: ATENOLOL 50 MG TABLET. PO SCH ×2 (15:14→20:59)
[2018-02-23] MEDS ORDERED: ALBUTEROL SULFATE 2.5 MG/3 ML NEBU. NEB PRN (15:15)
[2018-02-23] MEDS: amLODIPine BESYLATE 10 MG TABLET PO SCH (15:15)
[2018-02-23] MEDS: hydroCHLOROthiazide 25 MG TABLET PO SCH (15:15)
[2018-02-23] MEDS: cloNIDine HCL 0.2 MG TABLET PO SCH ×2 (15:15→20:59)
[2018-02-23] MEDS: LOSARTAN POTASSIUM 50 MG TABLET. PO SCH (15:16)
[2018-02-23] MEDS: CITALOPRAM 20 MG TABLET. PO SCH (15:16)
[2018-02-23] MEDS: metFORMIN 500 MG TABLET PO SCH (17:33)
--- NOTE | 2018-02-23 19:22 | PDOC2 ---
CONSULT Date of Consult Date of Consult DATE: 02/23/18 TIME: 19:16 Reason for Consult Reason for Consult: High blood pressure Referring Physician Referring Physician: Dr Salvador Identification/Chief Complaint Chief Complaint Abdominal pain and high blood pressure History of Present Illness Reason for Visit: This patient is a 62-year-old lady with a long history of hypertension, COPD with asthma, diabetes and GERD. I have not seen her for several years. She is not the most compliant patient. The patient has not been taking some of her blood pressure medications. She came into the emergency room yesterday with upper abdominal pain and had a negative workup and was discharged home. She returns today with the same abdominal pain and was found to have a markedly elevated blood pressure of 240/120 so it was decided to admit her for further workup and treatment. At the time that I saw the patient she denies having any chest pains, she denies any dyspnea. No palpitations, no loss of consciousness. Past Medical History Cardiovascular: HTN, Hyperlipidemia, Other Pulmonary: COPD, Other CENTRAL NERVOUS SYSTEM: Migraine GI: Constipation, Diverticulosis, GERD, GI bleed, Peptic Ulcer disease Heme/Onc: No pertinent hx Hepatobiliary: Hep A/B/C Psych: Anxiety, Depression Musculoskeletal: Osteoarthritis Rheumatologic: No pertinent hx Infectious disease: No pertinent hx Renal/: Chronic renal insuff Endocrine: Diabetes Past Surgical History Past Surgical History: , Hernia Repair, Colon Resection, Other Family History Family History: No Significant Social History ALCOHOL: none Drugs: None Lives: with Family Current Medications Current Medications Current Medications Nitroglycerin (Nitro-Bid Oint) 1 inch 1X ONCE TP Last administered on at 11:55; Start 02/23/18 at 12:00; Stop 02/23/18 at 12:01; Status DC Labetalol HCl (Normodyne Iv Push) 10 mg 1X ONCE IVP Last administered on at 11:54; Start 02/23/18 at 12:00; Stop 02/23/18 at 12:01; Status DC Nicardipine HCl 50 mg/Sodium Chloride 270 ml @ 27 mls/hr CONT PRN IV SEE I/O RECORD; Start 02/23/18 at 12:45; Status Cancel Multi-Ingredient Mouthwash/Gargle (Gi Cocktail) 20 ml 1X ONCE SWSW Last administered on 02/23/18at 12:45; Start 02/23/18 at 12:45; Stop 02/23/18 at 12:46 ; Status DC Nicardipine/ Sodium Chloride 200 ml @ 0 mls/hr CONT PRN IV SEE I/O RECORD Last administered on 02/23/18at 12:50; Start 02/23/18 at 12:45 Amlodipine Besylate (Norvasc) 10 mg DAILY PO Last administered on 02/23/18 15: 15; Start 02/23/18 at 15:00 Atenolol (Tenormin) 50 mg TID PO Last administered on 02/23/18 15:14; Start 02/23/18 at 15:00 Clonidine HCl (Catapres) 0.2 mg TID PO Last administered on 02/23/18 15:15; Start 02/23/18 at 15:00 Docusate Sodium (Colace) 100 mg BID PO ; Start 02/23/18 at 21:00 Hydrochlorothiazide (Hydrodiuril) 25 mg DAILY PO Last administered on at 15:15; Start 02/23/18 at 15:00 Pantoprazole Sodium (Protonix) 40 mg DAILY06 PO ; Start 02/24/18 at 06:00 Non-Formulary Medication (Albuterol Sulfate (Proventil Hfa Inhaler)) 1 puff PRN Q4HRS PRN IH FOR ASTHMA; Start 02/23/18 at 14:30; Status UNV Citalopram Hydrobromide (CeleXA) 40 mg DAILY PO Last administered on 02/23/18 15:16; Start 02/23/18 at 15:00 Glimepiride (Amaryl) 2 mg BID PO Last administered on 02/23/18 15:13; Start 02/23/18 at 21:00 Hydralazine HCl (Apresoline) 100 mg TID PO Last administered on 02/23/18 15:14 ; Start 02/23/18 at 15:00 Losartan Potassium (Cozaar) 100 mg DAILY PO Last administered on 02/23/18 15: 16; Start 02/23/18 at 15:00 Metformin HCl (Glucophage) 500 mg BIDWMEALS PO Last administered on 02/23/18 17:33; Start 11/6/18 at 17:00 Non-Formulary Medication (Mometasone/ Formoterol (Dulera 100 Mcg/5 Mcg Inhaler) ) 2 puff BID IH ; Start 02/23/18 at 21:00; Status UNV Polyethylene Glycol (miraLAX PACKET) 17 gm DAILY PO ; Start 02/23/18 at 15:00 Albuterol Sulfate (Ventolin Neb Soln) 2.5 mg PRN Q4HRS PRN NEB SHORTNESS OF BREATH; Start 02/23/18 at 15:15 Albuterol Sulfate (Ventolin Neb Soln) 2.5 mg Q6HRS NEB ; Start 02/23/18 at 18:00 Budesonide (Pulmicort) 0.5 mg RTBID NEB ; Start 02/23/18 at 20:00 Active Scripts Active Miralax (Polyethylene Glycol 3350) 17 Gm Powd.pack 1 Packet PO DAILY Colace (Docusate Sodium) 100 Mg Capsule 100 Mg PO BID Citalopram Hbr (Citalopram Hydrobromide) 20 Mg/10 Ml Solution 40 Mg PO DAILY 30 Days Reported Proventil Hfa Inhaler (Albuterol Sulfate) 6.7 Gm Hfa.aer.ad 1 Puff IH PRN Q4HRS PRN Dulera 100 Mcg/5 Mcg Inhaler (Mometasone/Formoterol) 13 Gm Hfa.aer.ad 2 Puff IH BID Hydrochlorothiazide Tablet (Hydrochlorothiazide) 25 Mg Tablet 25 Mg PO DAILY Hydralazine Hcl 100 Mg Tablet 1 Tab PO TID Atenolol 50 Mg Tablet 1 Tab PO TID Protonix (Pantoprazole Sodium) 40 Mg Tablet.dr 1 Tab PO DAILY Metformin Hcl 500 Mg Tablet 500 Mg PO BIDWMEALS Albuterol Sulfate Hfa Inhaler (Albuterol Sulfate) 8.5 Gm Hfa.aer.ad 8.5 Gm IH Clonidine Hcl 0.2 Mg Tablet 0.2 Mg PO TID Amlodipine Besylate 10 Mg Tablet 10 Mg PO DAILY Glimepiride 1 Mg Tablet 2 Mg PO BID Losartan Potassium 100 Mg Tablet 100 Mg PO DAILY Allergies Allergies: Coded Allergies: Iodinated Contrast- Oral and IV Dye (Verified Allergy, Intermediate, ) Physical Exam General: Alert, Oriented X3, Cooperative HEENT: PERRLA Lungs: Clear to auscultation Heart: Regular rate, Normal S1, Normal S2 Abdomen: Other (mild upper abdominal tenderness, bowel sounds present.) Extremities: Other (trace edema) Vitals VITALS Vital Signs Date Time Temp Pulse Resp B/P (MAP) Pulse Ox O2 Delivery O2 Flow Rate FiO2 02/23/18 18:00 84 174/86 (115) 99 Nasal Cannula 2.0 02/23/18 17:00 24 02/23/18 13:45 98.0 98.0 Labs Labs Laboratory Tests Test 02/23/18 11:15 02/23/18 17:58 White Blood Count 9.6 x10^3/uL (4.0-11.0) Red Blood Count 5.06 x10^6/uL (3.50-5.40) Hemoglobin 12.4 g/dL (12.0-15.5) Hematocrit 39.3 % (36.0-47.0) Mean Corpuscular Volume 78 fL (79-100) Mean Corpuscular Hemoglobin 25 pg (25-35) Mean Corpuscular Hemoglobin Concent 32 g/dL (31-37) Red Cell Distribution Width 17.4 % (11.5-14.5) Platelet Count 217 x10^3/uL (140-400) Neutrophils (%) (Auto) 69 % (31-73) Lymphocytes (%) (Auto) 19 % (24-48) Monocytes (%) (Auto) 8 % (0-9) Eosinophils (%) (Auto) 3 % (0-3) Basophils (%) (Auto) 1 % (0-3) Neutrophils # (Auto) 6.7 x10^3uL (1.8-7.7) Lymphocytes # (Auto) 1.9 x10^3/uL (1.0-4.8) Monocytes # (Auto) 0.7 x10^3/uL (0.0-1.1) Eosinophils # (Auto) 0.3 x10^3/uL (0.0-0.7) Basophils # (Auto) 0.1 x10^3/uL (0.0-0.2) Sodium Level 147 mmol/L (136-145) Potassium Level 3.7 mmol/L (3.5-5.1) Chloride Level 107 mmol/L (98-107) Carbon Dioxide Level 31 mmol/L (21-32) Anion Gap 9 (6-14) Blood Urea Nitrogen 33 mg/dL (7-20) Creatinine 2.6 mg/dL (0.6-1.0) Estimated GFR (Cockcroft-Gault) 22.6 Glucose Level 115 mg/dL (70-99) Calcium Level 9.2 mg/dL (8.5-10.1) Total Bilirubin 0.2 mg/dL (0.2-1.0) Direct Bilirubin 0.1 mg/dL (0.0-0.2) Aspartate Amino Transf (AST/SGOT) 16 U/L (15-37) Alanine Aminotransferase (ALT/SGPT) 25 U/L (14-59) Alkaline Phosphatase 105 U/L (46-116) Total Protein 6.5 g/dL (6.4-8.2) Albumin 2.6 g/dL (3.4-5.0) Lipase 169 U/L (73-393) Glucose (Fingerstick) 187 mg/dL (70-99) Laboratory Tests Test 02/23/18 11:15 02/23/18 17:58 White Blood Count 9.6 x10^3/uL (4.0-11.0) Red Blood Count 5.06 x10^6/uL (3.50-5.40) Hemoglobin 12.4 g/dL (12.0-15.5) Hematocrit 39.3 % (36.0-47.0) Mean Corpuscular Volume 78 fL (79-100) Mean Corpuscular Hemoglobin 25 pg (25-35) Mean Corpuscular Hemoglobin Concent 32 g/dL (31-37) Red Cell Distribution Width 17.4 % (11.5-14.5) Platelet Count 217 x10^3/uL (140-400) Neutrophils (%) (Auto) 69 % (31-73) Lymphocytes (%) (Auto) 19 % (24-48) Monocytes (%) (Auto) 8 % (0-9) Eosinophils (%) (Auto) 3 % (0-3) Basophils (%) (Auto) 1 % (0-3) Neutrophils # (Auto) 6.7 x10^3uL (1.8-7.7) Lymphocytes # (Auto) 1.9 x10^3/uL (1.0-4.8) Monocytes # (Auto) 0.7 x10^3/uL (0.0-1.1) Eosinophils # (Auto) 0.3 x10^3/uL (0.0-0.7) Basophils # (Auto) 0.1 x10^3/uL (0.0-0.2) Sodium Level 147 mmol/L (136-145) Potassium Level 3.7 mmol/L (3.5-5.1) Chloride Level 107 mmol/L (98-107) Carbon Dioxide Level 31 mmol/L (21-32) Anion Gap 9 (6-14) Blood Urea Nitrogen 33 mg/dL (7-20) Creatinine 2.6 mg/dL (0.6-1.0) Estimated GFR (Cockcroft-Gault) 22.6 Glucose Level 115 mg/dL (70-99) Calcium Level 9.2 mg/dL (8.5-10.1) Total Bilirubin 0.2 mg/dL (0.2-1.0) Direct Bilirubin 0.1 mg/dL (0.0-0.2) Aspartate Amino Transf (AST/SGOT) 16 U/L (15-37) Alanine Aminotransferase (ALT/SGPT) 25 U/L (14-59) Alkaline Phosphatase 105 U/L (46-116) Total Protein 6.5 g/dL (6.4-8.2) Albumin 2.6 g/dL (3.4-5.0) Lipase 169 U/L (73-393) Glucose (Fingerstick) 187 mg/dL (70-99) Assessment/Plan Assessment/Plan This patient comes in with abdominal pain and was found to be in a hypertensive crisis. She has responded to reinitiation of her medications in addition to a Cardene drip. At this point I would like to have her resume all of her suppose it home meds and try to wean off the Cardene drip. Once we see what she will require from her by mouth meds to control the blood pressure will then have further recommendations. I would like to get an echocardiogram to evaluate the left ventricular function. Thank you very much for asking me to participate in the care of this patient. BERTRAM FORREST MD Feb 23, 2018 19:22
[2018-02-23] MEDS: ALBUTEROL SULFATE 2.5 MG/3 ML NEBU. NEB SCH ×2 (19:44→23:29)
[2018-02-23] MEDS: BUDESONIDE 0.5 MG/2 ML NEBU. NEB SCH (19:44)
[2018-02-23] MEDS ORDERED: NON FORMULARY ITEM (Mometasone/Formoterol (Dulera 100 Mcg/5 Mcg Inhaler) 2 PUFF) IH SCH (21:00)
[2018-02-23] MEDS: DOCUSATE SODIUM 100 MG CAPSULE. PO SCH (21:00)
[2018-02-24] VITALS (22 sets, daily range): BP systolic 114–193; BP diastolic 65–102
[2018-02-24] MEDS ORDERED: ACETAMINOPHEN 325 MG TABLET. PO PRN (03:30)
[2018-02-24] MEDS: HYDROcodone/APAP 7.5/325MG 1 TAB TABLET PO PRN ×3 (03:33→20:21)
[2018-02-24] MEDS: PANTOPRAZOLE 40 MG TABLET.DR. PO SCH (05:28)
[2018-02-24 07:21] LABS: CALCIUM 9.1 mg/dL (8.5-10.1); CREATININE 2.5 mg/dL (0.6-1.0); GFR 23.7; POTASSIUM 3.4 mmol/L (3.5-5.1)
[2018-02-24 07:32] LABS: BASO # 0.1 x10^3/uL (0.0-0.2); BASO % 1 % (0-3); EOS # 0.3 x10^3/uL (0.0-0.7); EOS % 3 % (0-3); HEMATOCRIT 36.4 % (36.0-47.0); HEMOGLOBIN 11.6 g/dL (12.0-15.5); LYMPH # 2.2 x10^3/uL (1.0-4.8); LYMPH % 24 % (24-48); MEAN CORPUSCULAR HEMOGLOBIN 25 pg (25-35); MEAN CORPUSCULAR HGB CONC 32 g/dL (31-37); MEAN CORPUSCULAR VOLUME 78 fL (79-100); MONO # 0.8 x10^3/uL (0.0-1.1); MONO % 9 % (0-9); NEUT # 5.7 x10^3uL (1.8-7.7); NEUT % 63 % (31-73); PLATELET COUNT 197 x10^3/uL (140-400); RED BLOOD COUNT 4.69 x10^6/uL (3.50-5.40); RED CELL DISTRIBUTION WIDTH 17.2 % (11.5-14.5); WHITE BLOOD COUNT 9.1 x10^3/uL (4.0-11.0)
[2018-02-24] MEDS: POLYETHYLENE GLYCOL 3350 17 GM PACKET. PO SCH (08:41)
[2018-02-24] MEDS: metFORMIN 500 MG TABLET PO SCH ×2 (08:46→17:44)
[2018-02-24] MEDS: ATENOLOL 50 MG TABLET. PO SCH ×3 (08:46→20:18)
[2018-02-24] MEDS: CITALOPRAM 20 MG TABLET. PO SCH (08:46)
[2018-02-24] MEDS: DOCUSATE SODIUM 100 MG CAPSULE. PO SCH ×2 (08:47→20:19)
[2018-02-24] MEDS: hydroCHLOROthiazide 25 MG TABLET PO SCH (08:48)
[2018-02-24] MEDS: LOSARTAN POTASSIUM 50 MG TABLET. PO SCH (08:48)
[2018-02-24] MEDS: cloNIDine HCL 0.2 MG TABLET PO SCH ×3 (08:49→20:18)
[2018-02-24] MEDS: amLODIPine BESYLATE 10 MG TABLET PO SCH (08:49)
[2018-02-24] MEDS: GLIMEPIRIDE 2 MG TABLET. PO SCH ×2 (09:10→20:17)
[2018-02-24] MEDS: BUDESONIDE 0.5 MG/2 ML NEBU. NEB SCH ×2 (09:18→20:11)
[2018-02-24] MEDS: ALBUTEROL SULFATE 2.5 MG/3 ML NEBU. NEB SCH ×4 (09:18→23:37)
--- NOTE | 2018-02-24 10:07 | PDOC2 ---
CONSULT Date of Consult Date of Consult DATE: 02/24/18 TIME: 09:25 Reason for Consult Reason for Consult: ARF Identification/Chief Complaint Chief Complaint Abdominal pain Source Source: Chart review, Patient History of Present Illness Reason for Visit: Patient is a 62-year-old AAF with a long history of hypertension, COPD with asthma, diabetes. As per Card note- non compliant The patient has not been taking some of her blood pressure medications as mentioned in Card note (Pt reports she takes all her meds) She came to the ER with upper abdominal pain on 02/22 and had a negative workup and was discharged home,. She returned on 02/23 with the same abdominal pain and was found to have a markedly elevated blood pressure of 240/120 . She denies any CP, SOB. Reports has O2 at home but doesn't use it regularly Currently she denies any abdominal pain. Denies N/V/D. No palpitations, no loss of consciousness. No HUANG or Vision changes. Denies any urinary complaints , No Blood, Good UOP She takes BC Powder for pain(NSAID). She is not aware of any Kidney issues CT done in ER - reported as perinephritic fat stranding on the CT scan but no UA normal. Her BP were very high systolics in the 230s. She was given a dose of labetalol IV and Nitropaste was placed on her chest but these did not improve her hypertension. Following this, a nicardipine drip was started and titrated. Past Medical History Cardiovascular: HTN, Hyperlipidemia, Other Pulmonary: COPD, Other CENTRAL NERVOUS SYSTEM: Migraine GI: Constipation, Diverticulosis, GERD, GI bleed, Peptic Ulcer disease Heme/Onc: No pertinent hx Hepatobiliary: Hep A/B/C Psych: Anxiety, Depression Musculoskeletal: Osteoarthritis Rheumatologic: No pertinent hx Infectious disease: No pertinent hx Renal/: Chronic renal insuff Endocrine: Diabetes Past Surgical History Past Surgical History: , Hernia Repair, Colon Resection, Other Family History Family History: No Significant Social History ALCOHOL: none Drugs: None Lives: with Family Current Medications Current Medications Current Medications Nitroglycerin (Nitro-Bid Oint) 1 inch 1X ONCE TP Last administered on at 11:55; Start 02/23/18 at 12:00; Stop 02/23/18 at 12:01; Status DC Labetalol HCl (Normodyne Iv Push) 10 mg 1X ONCE IVP Last administered on at 11:54; Start 02/23/18 at 12:00; Stop 02/23/18 at 12:01; Status DC Nicardipine HCl 50 mg/Sodium Chloride 270 ml @ 27 mls/hr CONT PRN IV SEE I/O RECORD; Start 02/23/18 at 12:45; Status Cancel Multi-Ingredient Mouthwash/Gargle (Gi Cocktail) 20 ml 1X ONCE SWSW Last administered on 02/23/18at 12:45; Start 02/23/18 at 12:45; Stop 02/23/18 at 12:46 ; Status DC Nicardipine/ Sodium Chloride 200 ml @ 0 mls/hr CONT PRN IV SEE I/O RECORD Last administered on 02/23/18at 12:50; Start 02/23/18 at 12:45 Amlodipine Besylate (Norvasc) 10 mg DAILY PO Last administered on 02/24/18at 08: 49; Start 02/23/18 at 15:00 Atenolol (Tenormin) 50 mg TID PO Last administered on 02/24/18at 08:46; Start 02/23/18 at 15:00 Clonidine HCl (Catapres) 0.2 mg TID PO Last administered on 02/24/18 08:49; Start 02/23/18 at 15:00 Docusate Sodium (Colace) 100 mg BID PO Last administered on 02/24/18at 08:47; Start 02/23/18 at 21:00 Hydrochlorothiazide (Hydrodiuril) 25 mg DAILY PO Last administered on at 08:48; Start 02/23/18 at 15:00 Pantoprazole Sodium (Protonix) 40 mg DAILY06 PO Last administered on 02/24/18at 05:28; Start 02/24/18 at 06:00 Non-Formulary Medication (Albuterol Sulfate (Proventil Hfa Inhaler)) 1 puff PRN Q4HRS PRN IH FOR ASTHMA; Start 02/23/18 at 14:30; Status UNV Citalopram Hydrobromide (CeleXA) 40 mg DAILY PO Last administered on 02/24/18at 08:46; Start 02/23/18 at 15:00 Glimepiride (Amaryl) 2 mg BID PO Last administered on 02/24/18 09:10; Start 02/23/18 at 21:00 Hydralazine HCl (Apresoline) 100 mg TID PO Last administered on 02/24/18 08:45 ; Start 02/23/18 at 15:00 Losartan Potassium (Cozaar) 100 mg DAILY PO Last administered on 02/24/18at 08: 48; Start 02/23/18 at 15:00 Metformin HCl (Glucophage) 500 mg BIDWMEALS PO Last administered on 02/24/18 08:46; Start 02/23/18 at 17:00 Non-Formulary Medication (Mometasone/ Formoterol (Dulera 100 Mcg/5 Mcg Inhaler) ) 2 puff BID IH ; Start 02/23/18 at 21:00; Status UNV Polyethylene Glycol (miraLAX PACKET) 17 gm DAILY PO Last administered on at 08:41; Start 02/23/18 at 15:00 Albuterol Sulfate (Ventolin Neb Soln) 2.5 mg PRN Q4HRS PRN NEB SHORTNESS OF BREATH; Start 02/23/18 at 15:15 Albuterol Sulfate (Ventolin Neb Soln) 2.5 mg Q6HRS NEB Last administered on 02/24/18at 09:18; Start 02/23/18 at 18:00 Budesonide (Pulmicort) 0.5 mg RTBID NEB Last administered on 02/24/18at 09:18; Start 02/23/18 at 20:00 Acetaminophen (Tylenol) 650 mg PRN Q6HRS PRN PO HEADACHE; Start 02/24/18 at 03: 30 Acetaminophen/ Hydrocodone Bitart (Lortab 7.5/325) 1 tab PRN Q4HRS PRN PO PAIN Last administered on 02/24/18at 03:33; Start 02/24/18 at 03:30 Active Scripts Active Miralax (Polyethylene Glycol 3350) 17 Gm Powd.pack 1 Packet PO DAILY Colace (Docusate Sodium) 100 Mg Capsule 100 Mg PO BID Citalopram Hbr (Citalopram Hydrobromide) 20 Mg/10 Ml Solution 40 Mg PO DAILY 30 Days Reported Proventil Hfa Inhaler (Albuterol Sulfate) 6.7 Gm Hfa.aer.ad 1 Puff IH PRN Q4HRS PRN Dulera 100 Mcg/5 Mcg Inhaler (Mometasone/Formoterol) 13 Gm Hfa.aer.ad 2 Puff IH BID Hydrochlorothiazide Tablet (Hydrochlorothiazide) 25 Mg Tablet 25 Mg PO DAILY Hydralazine Hcl 100 Mg Tablet 1 Tab PO TID Atenolol 50 Mg Tablet 1 Tab PO TID Protonix (Pantoprazole Sodium) 40 Mg Tablet.dr 1 Tab PO DAILY Metformin Hcl 500 Mg Tablet 500 Mg PO BIDWMEALS Albuterol Sulfate Hfa Inhaler (Albuterol Sulfate) 8.5 Gm Hfa.aer.ad 8.5 Gm IH Clonidine Hcl 0.2 Mg Tablet 0.2 Mg PO TID Amlodipine Besylate 10 Mg Tablet 10 Mg PO DAILY Glimepiride 1 Mg Tablet 2 Mg PO BID Losartan Potassium 100 Mg Tablet 100 Mg PO DAILY Allergies Allergies: Coded Allergies: Iodinated Contrast- Oral and IV Dye (Verified Allergy, Intermediate, ) ROS Review of System As per HPI Physical Exam Physical Exam GEN: NAD , Obese HEEN: OM moist, O2 by NC Supple Neck Supple CVS: RRR RESP: CTA Bilat, No use of accessory Muscles GI: BS + ve, Non Tender, Obese : [No CVA tenderness, No Suprapubic Tenderness, No Ferrell Skin- No Rash Neuro- A xO x3 Vital Signs Vital Signs Date Time Temp Pulse Resp B/P (MAP) Pulse Ox O2 Delivery O2 Flow Rate FiO2 02/24/18 08:49 69 238/117 02/24/18 07:00 97.9 18 Nasal Cannula 2.0 97.9 02/24/18 06:00 96 Assessment & Plan JONO on CKD - Uncontrolled HTN , Vasomotor Non Oliguric , Baseline Creat 1.3 in 2017 , UA unremarkable Lytes and acid base stable , Currently No emergent indication for HD Renal Duplex, Monitor HTN- Uncontrolled Non compliant Currently on PO Multiple meds Including Losartan and HCTZ, if worsening renal function will recommend holding losartan and HCTZ , monitor CT- adrenals Normal . May need further isbell for Hyperaldo , r/o VENUS etc Defer to Cardiology Hypokalemia- Replace as needed CKD stage 3- Last Creat in Feb 1.3 Likely etiology HTNsive and Diab Nephrosclerosis DM defer to primary Labs Labs Laboratory Tests Test 02/23/18 11:15 02/23/18 13:45 02/23/18 17:58 02/24/18 06:40 White Blood Count 9.6 x10^3/uL (4.0-11.0) 9.1 x10^3/uL (4.0-11.0) Red Blood Count 5.06 x10^6/uL (3.50-5.40) 4.69 x10^6/uL (3.50-5.40) Hemoglobin 12.4 g/dL (12.0-15.5) 11.6 g/dL (12.0-15.5) Hematocrit 39.3 % (36.0-47.0) 36.4 % (36.0-47.0) Mean Corpuscular Volume 78 fL (79-100) 78 fL (79-100) Mean Corpuscular Hemoglobin 25 pg (25-35) 25 pg (25-35) Mean Corpuscular Hemoglobin Concent 32 g/dL (31-37) 32 g/dL (31-37) Red Cell Distribution Width 17.4 % (11.5-14.5) 17.2 % (11.5-14.5) Platelet Count 217 x10^3/uL (140-400) 197 x10^3/uL (140-400) Neutrophils (%) (Auto) 69 % (31-73) 63 % (31-73) Lymphocytes (%) (Auto) 19 % (24-48) 24 % (24-48) Monocytes (%) (Auto) 8 % (0-9) 9 % (0-9) Eosinophils (%) (Auto) 3 % (0-3) 3 % (0-3) Basophils (%) (Auto) 1 % (0-3) 1 % (0-3) Neutrophils # (Auto) 6.7 x10^3uL (1.8-7.7) 5.7 x10^3uL (1.8-7.7) Lymphocytes # (Auto) 1.9 x10^3/uL (1.0-4.8) 2.2 x10^3/uL (1.0-4.8) Monocytes # (Auto) 0.7 x10^3/uL (0.0-1.1) 0.8 x10^3/uL (0.0-1.1) Eosinophils # (Auto) 0.3 x10^3/uL (0.0-0.7) 0.3 x10^3/uL (0.0-0.7) Basophils # (Auto) 0.1 x10^3/uL (0.0-0.2) 0.1 x10^3/uL (0.0-0.2) Sodium Level 147 mmol/L (136-145) 145 mmol/L (136-145) Potassium Level 3.7 mmol/L (3.5-5.1) 3.4 mmol/L (3.5-5.1) Chloride Level 107 mmol/L (98-107) 107 mmol/L (98-107) Carbon Dioxide Level 31 mmol/L (21-32) 30 mmol/L (21-32) Anion Gap 9 (6-14) 8 (6-14) Blood Urea Nitrogen 33 mg/dL (7-20) 31 mg/dL (7-20) Creatinine 2.6 mg/dL (0.6-1.0) 2.5 mg/dL (0.6-1.0) Estimated GFR (Cockcroft-Gault) 22.6 23.7 Glucose Level 115 mg/dL (70-99) 121 mg/dL (70-99) Calcium Level 9.2 mg/dL (8.5-10.1) 9.1 mg/dL (8.5-10.1) Total Bilirubin 0.2 mg/dL (0.2-1.0) Direct Bilirubin 0.1 mg/dL (0.0-0.2) Aspartate Amino Transf (AST/SGOT) 16 U/L (15-37) Alanine Aminotransferase (ALT/SGPT) 25 U/L (14-59) Alkaline Phosphatase 105 U/L (46-116) Total Protein 6.5 g/dL (6.4-8.2) Albumin 2.6 g/dL (3.4-5.0) Lipase 169 U/L (73-393) Nasal Screen MRSA (PCR) Negative (Negative) Glucose (Fingerstick) 187 mg/dL (70-99) Laboratory Tests Test 02/23/18 11:15 02/23/18 13:45 02/23/18 17:58 02/24/18 06:40 White Blood Count 9.6 x10^3/uL (4.0-11.0) 9.1 x10^3/uL (4.0-11.0) Red Blood Count 5.06 x10^6/uL (3.50-5.40) 4.69 x10^6/uL (3.50-5.40) Hemoglobin 12.4 g/dL (12.0-15.5) 11.6 g/dL (12.0-15.5) Hematocrit 39.3 % (36.0-47.0) 36.4 % (36.0-47.0) Mean Corpuscular Volume 78 fL (79-100) 78 fL (79-100) Mean Corpuscular Hemoglobin 25 pg (25-35) 25 pg (25-35) Mean Corpuscular Hemoglobin Concent 32 g/dL (31-37) 32 g/dL (31-37) Red Cell Distribution Width 17.4 % (11.5-14.5) 17.2 % (11.5-14.5) Platelet Count 217 x10^3/uL (140-400) 197 x10^3/uL (140-400) Neutrophils (%) (Auto) 69 % (31-73) 63 % (31-73) Lymphocytes (%) (Auto) 19 % (24-48) 24 % (24-48) Monocytes (%) (Auto) 8 % (0-9) 9 % (0-9) Eosinophils (%) (Auto) 3 % (0-3) 3 % (0-3) Basophils (%) (Auto) 1 % (0-3) 1 % (0-3) Neutrophils # (Auto) 6.7 x10^3uL (1.8-7.7) 5.7 x10^3uL (1.8-7.7) Lymphocytes # (Auto) 1.9 x10^3/uL (1.0-4.8) 2.2 x10^3/uL (1.0-4.8) Monocytes # (Auto) 0.7 x10^3/uL (0.0-1.1) 0.8 x10^3/uL (0.0-1.1) Eosinophils # (Auto) 0.3 x10^3/uL (0.0-0.7) 0.3 x10^3/uL (0.0-0.7) Basophils # (Auto) 0.1 x10^3/uL (0.0-0.2) 0.1 x10^3/uL (0.0-0.2) Sodium Level 147 mmol/L (136-145) 145 mmol/L (136-145) Potassium Level 3.7 mmol/L (3.5-5.1) 3.4 mmol/L (3.5-5.1) Chloride Level 107 mmol/L (98-107) 107 mmol/L (98-107) Carbon Dioxide Level 31 mmol/L (21-32) 30 mmol/L (21-32) Anion Gap 9 (6-14) 8 (6-14) Blood Urea Nitrogen 33 mg/dL (7-20) 31 mg/dL (7-20) Creatinine 2.6 mg/dL (0.6-1.0) 2.5 mg/dL (0.6-1.0) Estimated GFR (Cockcroft-Gault) 22.6 23.7 Glucose Level 115 mg/dL (70-99) 121 mg/dL (70-99) Calcium Level 9.2 mg/dL (8.5-10.1) 9.1 mg/dL (8.5-10.1) Total Bilirubin 0.2 mg/dL (0.2-1.0) Direct Bilirubin 0.1 mg/dL (0.0-0.2) Aspartate Amino Transf (AST/SGOT) 16 U/L (15-37) Alanine Aminotransferase (ALT/SGPT) 25 U/L (14-59) Alkaline Phosphatase 105 U/L (46-116) Total Protein 6.5 g/dL (6.4-8.2) Albumin 2.6 g/dL (3.4-5.0) Lipase 169 U/L (73-393) Nasal Screen MRSA (PCR) Negative (Negative) Glucose (Fingerstick) 187 mg/dL (70-99) Review All relevant outside records, renal labs, imaging studies, telemetry/EKG's were reviewed. Images Images Ct scan WO contrast -- Pancreas, adrenal glands and gallbladder are unremarkable. 1. Bilateral nephrolithiasis, nonobstructive. 2. Mild inflammatory stranding in the bilateral perinephric fat, new from prior study, nonspecific. This could be related to medical renal disease or pyelonephritis. Correlate clinically. 3. Small exophytic 1.4 cm low-density focus at the lower pole left kidney appears to somewhat increased in size and measures about 26Hounsfield units . This is indeterminate. Follow-up dedicated renal CT with and without contrast or ultrasound. 4. Diverticulosis with no evidence of acute diverticulitis. 5. Small pericardial effusion. KAE VELASQUEZ MD Feb 24, 2018 10:07
--- NOTE | 2018-02-24 11:05 | HP ---
ADMIT DATE: 02/23/2018 CHIEF COMPLAINT: Abdominal pain. HISTORY OF PRESENT ILLNESS AND HOSPITAL COURSE: This patient is a 62-year-old female who presents with diffuse abdominal pain. She actually presented twice to the Emergency Room with persistent abdominal pain with initially negative findings. On second admission, the patient was found to have significantly high blood pressure consistent with hypertensive emergency and acute on chronic renal failure. Due to these findings, she was admitted for further evaluation. The patient was placed on Nipride and admitted to the ICU. PAST MEDICAL HISTORY: Significant for: 1. Severe hypertension. 2. Type 2 diabetes. 3. Asthma. 4. Osteoarthritis. 5. Anxiety, depression. 6. Gastroesophageal reflux disease. MEDICATIONS: On admission were clonidine 0.2 one p.o. t.i.d., amlodipine 10 mg daily, atenolol 50 mg t.i.d., losartan 100 mg q. day, hydralazine 100 mg t.i.d., glimepiride 2 mg b.i.d., metformin 500 mg b.i.d., citalopram 40 mg daily, pantoprazole 40 mg daily, Ventolin inhaler two puffs q.4h. p.r.n., Dulera 100/5 two puffs b.i.d. PAST SURGICAL HISTORY: Significant for multiple hernia repairs, x 3, chest wall cyst removal, carpal tunnel surgery, ruptured diverticulum. FAMILY HISTORY: Mother with diagnosis of diabetes, anemia, hypertension and heart disease. Father of unknown causes. SOCIAL HISTORY: The patient continues to smoke approximately half pack per day. She does not use alcohol. She lives with her daughter and grandchildren. ALLERGIES: Denies any drug allergies. REVIEW OF SYSTEMS: The patient has had intermittent abdominal pain and high blood pressures for the last 2 weeks, worsening within the last 48 hours. Nursing staff in the Emergency Room did call pharmacies and discovered that the patient is not filling medications and is significantly noncompliant hypertensive meds and has poor understanding of hypertensive med treatment. The patient has had no nausea, vomiting or diarrhea. The patient denies shortness of breath or chest pains. PHYSICAL EXAMINATION: GENERAL: This is a morbidly obese female in no apparent distress on my initial exam approximately 12 hours after admission. HEENT: Benign. NECK: Supple. CARDIAC: Regular rate and rhythm. LUNGS: Revealed rare wheezes. ABDOMEN: Soft. Some mild tenderness in the right upper quadrant. EXTREMITIES: 2+ pulse without significant edema. NEUROLOGIC: Showed no unilateral findings. Blood pressure significantly elevated with systolics over 200. SIGNIFICANT LABORATORY DATA: Revealed BUN of 33, creatinine of 2.6 with a baseline of 1.9 and creatinine approximately one year ago down to 1.37. The patient also has low albumin of 2.6. ASSESSMENT: 1. Hypertensive emergency. 2. 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 3. Acute on chronic renal failure. 4. Severe protein malnutrition. 5. Type 2 diabetes. 6. Severe hypertension. 7. Asthma. 8. Osteoarthritis. 9. Anxiety, depression. 10. Gastroesophageal reflux disease. PLAN: To proceed with Nipride. Consult Cardiology for assistance in hypertension treatment and for cardiac eval. Consult Nephrology for acute on chronic renal failure, transition to p.o. medications. Continue to monitor abdominal pain and bowel function. Proceed with PT and OT modalities as needed. RICKY PORTILLO MD DR: CLARENCE/kat JOB#: [id number] / [id number]
--- NOTE | 2018-02-24 12:53 | PDOC2 ---
GI CONSULT Reason For Consult: Abd pain HPI: HPI: 62 y/o female admitted w/ HTN, JONO, and abd pain - seems issues w/ compliance. She was seen in ICU this morning w/ Dr. Hein. Had some upper abd pain that is now better. Biggest complaint is headache. Denies n/v, diarrhea, constipation, and bleeding. Has acid reflux but stopped whatever pill she was taking for reflux awhile ago. H/o Gamal (2) thought NSAID-related, diverticular bleed, and large right colon AVM w/ right hemicolectomy. Last colonoscopy in 2010, last EGD in 2013. No GB or pancreas history. Hepatomegaly on US. PMH: PMH: HTN, HLD, COPD, VENUS, GERD, PUD, diverticulosis, DM, CKD, anxiety, hernia repairs , C-sections, right hemicolectomy, CTR, chest wall surgery FH: Family History: No pertinent hx (denies GI cancers), CAD Social History: Smoke: <1 pack per day ALCOHOL: none Drugs: None ROS: GEN: Denies fevers, chills, sweats HEENT: Denies blurred vision, sore throat CV: Denies chest pain RESP: Denies shortness of air, cough GI: Per HPI : Denies hematuria, dysuria ENDO: Denies weight changes NEURO: Denies confusion, dizziness MSK: Denies weakness, joint pain/swelling SKIN: Denies jaundice, pruritus Vitals: Vitals: Vital Signs Date Time Temp Pulse Resp B/P (MAP) Pulse Ox O2 Delivery O2 Flow Rate FiO2 02/24/18 12:29 97 Nasal Cannula 2.0 02/24/18 11:00 66 18 143/77 (99) 02/24/18 07:00 97.9 97.9 Labs: Labs: Laboratory Tests Test 02/23/18 13:45 02/23/18 17:58 02/24/18 06:40 02/24/18 12:28 Nasal Screen MRSA (PCR) Negative (Negative) Glucose (Fingerstick) 187 mg/dL (70-99) 163 mg/dL (70-99) White Blood Count 9.1 x10^3/uL (4.0-11.0) Red Blood Count 4.69 x10^6/uL (3.50-5.40) Hemoglobin 11.6 g/dL (12.0-15.5) Hematocrit 36.4 % (36.0-47.0) Mean Corpuscular Volume 78 fL (79-100) Mean Corpuscular Hemoglobin 25 pg (25-35) Mean Corpuscular Hemoglobin Concent 32 g/dL (31-37) Red Cell Distribution Width 17.2 % (11.5-14.5) Platelet Count 197 x10^3/uL (140-400) Neutrophils (%) (Auto) 63 % (31-73) Lymphocytes (%) (Auto) 24 % (24-48) Monocytes (%) (Auto) 9 % (0-9) Eosinophils (%) (Auto) 3 % (0-3) Basophils (%) (Auto) 1 % (0-3) Neutrophils # (Auto) 5.7 x10^3uL (1.8-7.7) Lymphocytes # (Auto) 2.2 x10^3/uL (1.0-4.8) Monocytes # (Auto) 0.8 x10^3/uL (0.0-1.1) Eosinophils # (Auto) 0.3 x10^3/uL (0.0-0.7) Basophils # (Auto) 0.1 x10^3/uL (0.0-0.2) Sodium Level 145 mmol/L (136-145) Potassium Level 3.4 mmol/L (3.5-5.1) Chloride Level 107 mmol/L (98-107) Carbon Dioxide Level 30 mmol/L (21-32) Anion Gap 8 (6-14) Blood Urea Nitrogen 31 mg/dL (7-20) Creatinine 2.5 mg/dL (0.6-1.0) Estimated GFR (Cockcroft-Gault) 23.7 Glucose Level 121 mg/dL (70-99) Calcium Level 9.1 mg/dL (8.5-10.1) Allergies: Coded Allergies: Iodinated Contrast- Oral and IV Dye (Verified Allergy, Intermediate, ) Medications: Current Medications Medications (Trade) Dose Ordered Sig/Howard Route PRN Reason Start Time Stop Time Status Last Admin Dose Admin Amlodipine Besylate (Norvasc) 10 mg DAILY PO 02/23/18 15:00 02/24/18 08:49 Atenolol (Tenormin) 50 mg TID PO 02/23/18 15:00 02/24/18 08:46 Clonidine HCl (Catapres) 0.2 mg TID PO 02/23/18 15:00 02/24/18 08:49 Docusate Sodium (Colace) 100 mg BID PO 02/23/18 21:00 02/24/18 08:47 Hydrochlorothiazide (Hydrodiuril) 25 mg DAILY PO 02/23/18 15:00 02/24/18 08:48 Pantoprazole Sodium (Protonix) 40 mg DAILY06 PO 02/24/18 06:00 02/24/18 05:28 Citalopram Hydrobromide (CeleXA) 40 mg DAILY PO 02/23/18 15:00 02/24/18 08:46 Glimepiride (Amaryl) 2 mg BID PO 02/23/18 21:00 02/24/18 09:10 Hydralazine HCl (Apresoline) 100 mg TID PO 02/23/18 15:00 02/24/18 08:45 Losartan Potassium (Cozaar) 100 mg DAILY PO 02/23/18 15:00 02/24/18 08:48 Metformin HCl (Glucophage) 500 mg BIDWMEALS PO 02/23/18 17:00 02/24/18 08:46 Polyethylene Glycol (miraLAX PACKET) 17 gm DAILY PO 02/23/18 15:00 02/24/18 08:41 Albuterol Sulfate (Ventolin Neb Soln) 2.5 mg Q6HRS NEB 02/23/18 18:00 02/24/18 12:29 Budesonide (Pulmicort) 0.5 mg RTBID NEB 02/23/18 20:00 02/24/18 09:18 Acetaminophen/ Hydrocodone Bitart (Lortab 7.5/325) 1 tab PRN Q4HRS PRN PO PAIN 02/24/18 03:30 02/24/18 09:26 Imaging: Imaging: Abd US FINDINGS: The pancreas is homogeneous without focal enlargement. The intrahepatic portion of the IVC is unremarkable. No focal aneurysmal dilatation of the proximal abdominal aorta is seen. The mid and distal abdominal aorta are obscured due to overlying bowel gas. The liver measures 19.9 cm in length which is mildly enlarged. No focal hepatic mass is seen otherwise. The gallbladder is contracted. This could be due to recent meal. No gallstone is evident. The extra hepatic bile duct measures 5 mm in caliber which is normal. The length of the right kidney is 13.2 cm and the length of the left kidney is 13.2 cm. No hydronephrosis or renal mass or perinephric fluid collection is seen on either side. A small 6 mm cyst of the upper pole of the the right kidney is seen. There is a small cyst of the left kidney measuring 18 mm. The spleen measures 8.6 cm in length which is normal. No ascites is evident. IMPRESSION: Hepatomegaly. The gallbladder is contracted which may be due to recent meal. PE: GEN: NAD HEENT: Atraumatic, PERRL LUNGS: NC, clear anteriorly HEART: RRR ABD: NABS, soft, round/overweight, very mild epigastric discomfort EXTREMITY: No edema SKIN: No rashes, no jaundice NEURO/PSYCH: A & O 3 A/P: A/P: HTN, JONO, headache Upper abd pain - better GERD - off med (?PPI) at home, last EGD 2013 H/o PUD, diverticular bleed, and right colon AVM s/p hemicolectomy CRC screen - UTD (2010) -- Abd pain improved. Agree w/ restarting PPI - encouraged compliance. Okay to feed. Observe. AMI AZUL Feb 24, 2018 12:53
--- NOTE | 2018-02-24 13:30 | RAD ---
Renal ultrasound and renal artery Doppler dated 02/24/2018. No comparison available. Clinical indication: Grayscale images of the kidneys show symmetric renal size and echogenicity. Right kidney measures 13 cm in length. Left kidney measures 13.5 cm in length. No hydronephrosis. Spectral waveform analysis and color flow imaging of the renal arteries show normal waveforms. No focal stenosis. The renal artery velocity measurements are within the range of normal. Ratios are within the range of normal.. Urinary bladder unremarkable. IMPRESSION: No acute sonographic abnormality. No evidence of hemodynamically significant renal artery stenosis. Electronically signed by: Jose Roberto Pennington MD (02/24/2018 1:27 PM) [id number]
--- NOTE | 2018-02-24 15:43 | PDOC ---
PROGRESS NOTES Subjective Subjective Patient feels well this am, abdominal pain has resolved. Objective Objective Vital Signs Date Time Temp Pulse Resp B/P (MAP) Pulse Ox O2 Delivery O2 Flow Rate FiO2 02/24/18 15:00 72 25 137/75 (95) 99 Nasal Cannula 2.0 02/24/18 07:00 97.9 97.9 Intake and Output 02/24/18 07:00 Intake Total 917.24 ml Output Total 1202 ml Balance -284.76 ml Intake Oral 800 ml IV Total 117.24 ml Output Urine Total 1201 ml Stool Total 1 ml # Voids 1 Physical Exam Physical Exam No significant change on cardiac exam. Plan Plan of Care Continue PO home meds without Cardene drip Echo scheduled for this afternoon Comment Review of Relevant I have reviewed the following items munir (where applicable) has been applied. Labs Laboratory Tests Test 02/23/18 11:15 02/23/18 13:45 02/23/18 17:58 02/24/18 06:40 White Blood Count 9.6 x10^3/uL (4.0-11.0) 9.1 x10^3/uL (4.0-11.0) Red Blood Count 5.06 x10^6/uL (3.50-5.40) 4.69 x10^6/uL (3.50-5.40) Hemoglobin 12.4 g/dL (12.0-15.5) 11.6 g/dL (12.0-15.5) Hematocrit 39.3 % (36.0-47.0) 36.4 % (36.0-47.0) Mean Corpuscular Volume 78 fL (79-100) 78 fL (79-100) Mean Corpuscular Hemoglobin 25 pg (25-35) 25 pg (25-35) Mean Corpuscular Hemoglobin Concent 32 g/dL (31-37) 32 g/dL (31-37) Red Cell Distribution Width 17.4 % (11.5-14.5) 17.2 % (11.5-14.5) Platelet Count 217 x10^3/uL (140-400) 197 x10^3/uL (140-400) Neutrophils (%) (Auto) 69 % (31-73) 63 % (31-73) Lymphocytes (%) (Auto) 19 % (24-48) 24 % (24-48) Monocytes (%) (Auto) 8 % (0-9) 9 % (0-9) Eosinophils (%) (Auto) 3 % (0-3) 3 % (0-3) Basophils (%) (Auto) 1 % (0-3) 1 % (0-3) Neutrophils # (Auto) 6.7 x10^3uL (1.8-7.7) 5.7 x10^3uL (1.8-7.7) Lymphocytes # (Auto) 1.9 x10^3/uL (1.0-4.8) 2.2 x10^3/uL (1.0-4.8) Monocytes # (Auto) 0.7 x10^3/uL (0.0-1.1) 0.8 x10^3/uL (0.0-1.1) Eosinophils # (Auto) 0.3 x10^3/uL (0.0-0.7) 0.3 x10^3/uL (0.0-0.7) Basophils # (Auto) 0.1 x10^3/uL (0.0-0.2) 0.1 x10^3/uL (0.0-0.2) Sodium Level 147 mmol/L (136-145) 145 mmol/L (136-145) Potassium Level 3.7 mmol/L (3.5-5.1) 3.4 mmol/L (3.5-5.1) Chloride Level 107 mmol/L (98-107) 107 mmol/L (98-107) Carbon Dioxide Level 31 mmol/L (21-32) 30 mmol/L (21-32) Anion Gap 9 (6-14) 8 (6-14) Blood Urea Nitrogen 33 mg/dL (7-20) 31 mg/dL (7-20) Creatinine 2.6 mg/dL (0.6-1.0) 2.5 mg/dL (0.6-1.0) Estimated GFR (Cockcroft-Gault) 22.6 23.7 Glucose Level 115 mg/dL (70-99) 121 mg/dL (70-99) Calcium Level 9.2 mg/dL (8.5-10.1) 9.1 mg/dL (8.5-10.1) Total Bilirubin 0.2 mg/dL (0.2-1.0) Direct Bilirubin 0.1 mg/dL (0.0-0.2) Aspartate Amino Transf (AST/SGOT) 16 U/L (15-37) Alanine Aminotransferase (ALT/SGPT) 25 U/L (14-59) Alkaline Phosphatase 105 U/L (46-116) Total Protein 6.5 g/dL (6.4-8.2) Albumin 2.6 g/dL (3.4-5.0) Lipase 169 U/L (73-393) Nasal Screen MRSA (PCR) Negative (Negative) Glucose (Fingerstick) 187 mg/dL (70-99) Test 02/24/18 12:28 Glucose (Fingerstick) 163 mg/dL (70-99) Laboratory Tests Test 02/23/18 17:58 02/24/18 06:40 02/24/18 12:28 Glucose (Fingerstick) 187 mg/dL (70-99) 163 mg/dL (70-99) White Blood Count 9.1 x10^3/uL (4.0-11.0) Red Blood Count 4.69 x10^6/uL (3.50-5.40) Hemoglobin 11.6 g/dL (12.0-15.5) Hematocrit 36.4 % (36.0-47.0) Mean Corpuscular Volume 78 fL (79-100) Mean Corpuscular Hemoglobin 25 pg (25-35) Mean Corpuscular Hemoglobin Concent 32 g/dL (31-37) Red Cell Distribution Width 17.2 % (11.5-14.5) Platelet Count 197 x10^3/uL (140-400) Neutrophils (%) (Auto) 63 % (31-73) Lymphocytes (%) (Auto) 24 % (24-48) Monocytes (%) (Auto) 9 % (0-9) Eosinophils (%) (Auto) 3 % (0-3) Basophils (%) (Auto) 1 % (0-3) Neutrophils # (Auto) 5.7 x10^3uL (1.8-7.7) Lymphocytes # (Auto) 2.2 x10^3/uL (1.0-4.8) Monocytes # (Auto) 0.8 x10^3/uL (0.0-1.1) Eosinophils # (Auto) 0.3 x10^3/uL (0.0-0.7) Basophils # (Auto) 0.1 x10^3/uL (0.0-0.2) Sodium Level 145 mmol/L (136-145) Potassium Level 3.4 mmol/L (3.5-5.1) Chloride Level 107 mmol/L (98-107) Carbon Dioxide Level 30 mmol/L (21-32) Anion Gap 8 (6-14) Blood Urea Nitrogen 31 mg/dL (7-20) Creatinine 2.5 mg/dL (0.6-1.0) Estimated GFR (Cockcroft-Gault) 23.7 Glucose Level 121 mg/dL (70-99) Calcium Level 9.1 mg/dL (8.5-10.1) Medications Current Medications Nitroglycerin (Nitro-Bid Oint) 1 inch 1X ONCE TP Last administered on at 11:55; Start 02/23/18 at 12:00; Stop 02/23/18 at 12:01; Status DC Labetalol HCl (Normodyne Iv Push) 10 mg 1X ONCE IVP Last administered on at 11:54; Start 02/23/18 at 12:00; Stop 02/23/18 at 12:01; Status DC Nicardipine HCl 50 mg/Sodium Chloride 270 ml @ 27 mls/hr CONT PRN IV SEE I/O RECORD; Start 02/23/18 at 12:45; Status Cancel Multi-Ingredient Mouthwash/Gargle (Gi Cocktail) 20 ml 1X ONCE SWSW Last administered on 02/23/18at 12:45; Start 02/23/18 at 12:45; Stop 02/23/18 at 12:46 ; Status DC Nicardipine/ Sodium Chloride 200 ml @ 0 mls/hr CONT PRN IV SEE I/O RECORD Last administered on 02/23/18at 12:50; Start 02/23/18 at 12:45 Amlodipine Besylate (Norvasc) 10 mg DAILY PO Last administered on 02/24/18at 08: 49; Start 02/23/18 at 15:00 Atenolol (Tenormin) 50 mg TID PO Last administered on 02/24/18at 14:45; Start 02/23/18 at 15:00 Clonidine HCl (Catapres) 0.2 mg TID PO Last administered on 02/24/18 14:45; Start 02/23/18 at 15:00 Docusate Sodium (Colace) 100 mg BID PO Last administered on 02/24/18 08:47; Start 02/23/18 at 21:00 Hydrochlorothiazide (Hydrodiuril) 25 mg DAILY PO Last administered on 08:48; Start 02/23/18 at 15:00 Pantoprazole Sodium (Protonix) 40 mg DAILY06 PO Last administered on 02/24/18 05:28; Start 02/24/18 at 06:00 Non-Formulary Medication (Albuterol Sulfate (Proventil Hfa Inhaler)) 1 puff PRN Q4HRS PRN IH FOR ASTHMA; Start 02/23/18 at 14:30; Status UNV Citalopram Hydrobromide (CeleXA) 40 mg DAILY PO Last administered on 02/24/18 08:46; Start 02/23/18 at 15:00 Glimepiride (Amaryl) 2 mg BID PO Last administered on 02/24/18 09:10; Start 02/23/18 at 21:00 Hydralazine HCl (Apresoline) 100 mg TID PO Last administered on 02/24/18 14:46 ; Start 02/23/18 at 15:00 Losartan Potassium (Cozaar) 100 mg DAILY PO Last administered on 02/24/18 08: 48; Start 02/23/18 at 15:00 Metformin HCl (Glucophage) 500 mg BIDWMEALS PO Last administered on 02/24/18 08:46; Start 02/23/18 at 17:00 Non-Formulary Medication (Mometasone/ Formoterol (Dulera 100 Mcg/5 Mcg Inhaler) ) 2 puff BID IH ; Start 02/23/18 at 21:00; Status UNV Polyethylene Glycol (miraLAX PACKET) 17 gm DAILY PO Last administered on 08:41; Start 02/23/18 at 15:00 Albuterol Sulfate (Ventolin Neb Soln) 2.5 mg PRN Q4HRS PRN NEB SHORTNESS OF BREATH; Start 02/23/18 at 15:15 Albuterol Sulfate (Ventolin Neb Soln) 2.5 mg Q6HRS NEB Last administered on 02/24/18at 12:29; Start 02/23/18 at 18:00 Budesonide (Pulmicort) 0.5 mg RTBID NEB Last administered on 02/24/18at 09:18; Start 02/23/18 at 20:00 Acetaminophen (Tylenol) 650 mg PRN Q6HRS PRN PO HEADACHE; Start 02/24/18 at 03: 30 Acetaminophen/ Hydrocodone Bitart (Lortab 7.5/325) 1 tab PRN Q4HRS PRN PO PAIN Last administered on 02/24/18at 09:26; Start 02/24/18 at 03:30 Active Scripts Active Miralax (Polyethylene Glycol 3350) 17 Gm Powd.pack 1 Packet PO DAILY Colace (Docusate Sodium) 100 Mg Capsule 100 Mg PO BID Citalopram Hbr (Citalopram Hydrobromide) 20 Mg/10 Ml Solution 40 Mg PO DAILY 30 Days Reported Proventil Hfa Inhaler (Albuterol Sulfate) 6.7 Gm Hfa.aer.ad 1 Puff IH PRN Q4HRS PRN Dulera 100 Mcg/5 Mcg Inhaler (Mometasone/Formoterol) 13 Gm Hfa.aer.ad 2 Puff IH BID Hydrochlorothiazide Tablet (Hydrochlorothiazide) 25 Mg Tablet 25 Mg PO DAILY Hydralazine Hcl 100 Mg Tablet 1 Tab PO TID Atenolol 50 Mg Tablet 1 Tab PO TID Protonix (Pantoprazole Sodium) 40 Mg Tablet.dr 1 Tab PO DAILY Metformin Hcl 500 Mg Tablet 500 Mg PO BIDWMEALS Albuterol Sulfate Hfa Inhaler (Albuterol Sulfate) 8.5 Gm Hfa.aer.ad 8.5 Gm IH Clonidine Hcl 0.2 Mg Tablet 0.2 Mg PO TID Amlodipine Besylate 10 Mg Tablet 10 Mg PO DAILY Glimepiride 1 Mg Tablet 2 Mg PO BID Losartan Potassium 100 Mg Tablet 100 Mg PO DAILY Vitals/I & O Vital Sign - Last 24 Hours 02/23/18 02/23/18 02/23/18 02/23/18 16:00 16:00 16:15 16:30 Pulse 68 68 66 Resp 18 20 21 B/P (MAP) 113/69 (84) 110/61 (77) 100/63 (75) Pulse Ox 98 98 97 O2 Delivery Nasal Cannula Nasal Cannula Nasal Cannula Nasal Cannula O2 Flow Rate 2.0 2.0 2.0 2.0 02/23/18 02/23/18 02/23/18 02/23/18 16:45 17:00 17:15 17:30 Pulse 70 70 70 98 Resp 24 B/P (MAP) 131/62 (85) 141/68 (92) 119/60 (79) 123/58 (79) Pulse Ox 96 O2 Delivery Nasal Cannula O2 Flow Rate 2.0 02/23/18 02/23/18 02/23/18 02/23/18 17:45 18:00 19:00 19:44 Pulse 99 84 71 B/P (MAP) 126/65 (85) 174/86 (115) 148/74 (98) Pulse Ox 99 98 97 O2 Delivery Nasal Cannula Nasal Cannula Nasal Cannula O2 Flow Rate 2.0 2.0 2.0 02/23/18 02/23/18 02/23/18 02/23/18 20:00 20:00 20:58 20:59 Pulse 75 90 90 B/P (MAP) 134/67 (89) 134/67 134/67 Pulse Ox 98 O2 Delivery Nasal Cannula Nasal Cannula O2 Flow Rate 2.0 2.0 02/23/18 02/23/18 02/23/18 02/23/18 20:59 21:00 22:00 23:00 Temp 98.4 98.4 Pulse 90 69 67 65 B/P (MAP) 134/67 150/89 (109) 124/62 (82) 126/69 (88) Pulse Ox 98 98 96 O2 Delivery Nasal Cannula Nasal Cannula Nasal Cannula O2 Flow Rate 2.0 2.0 2.0 02/23/18 02/23/18 02/23/18 02/24/18 23:29 23:59 23:59 01:00 Temp 98.6 98.6 Pulse 67 69 B/P (MAP) 126/69 (88) 174/90 (118) Pulse Ox 97 94 96 O2 Delivery Nasal Cannula Nasal Cannula Nasal Cannula Nasal Cannula O2 Flow Rate 2.0 2.0 2.0 2.0 02/24/18 02/24/18 02/24/18 02/24/18 02:00 03:00 03:33 04:00 Temp 99.0 99.0 Pulse 69 56 59 Resp 16 B/P (MAP) 174/90 (118) 177/87 (117) 165/93 (117) Pulse Ox 96 96 96 94 O2 Delivery Nasal Cannula Nasal Cannula Nasal Cannula Nasal Cannula O2 Flow Rate 2.0 2.0 2.0 2.0 02/24/18 02/24/18 02/24/18 02/24/18 04:00 04:33 05:00 06:00 Pulse 61 59 Resp 18 B/P (MAP) 170/80 (110) 180/86 (117) Pulse Ox 96 96 O2 Delivery Nasal Cannula Nasal Cannula Nasal Cannula O2 Flow Rate 2.0 2.0 2.0 02/24/18 02/24/18 02/24/18 02/24/18 07:00 08:00 08:00 08:45 Temp 97.9 97.9 Pulse 57 82 75 Resp 18 B/P (MAP) 193/89 (123) 238/117 Pulse Ox 97 O2 Delivery Nasal Cannula Nasal Cannula Nasal Cannula O2 Flow Rate 2.0 2.0 2.0 02/24/18 02/24/18 02/24/18 02/24/18 08:46 08:48 08:49 08:49 Pulse 66 69 75 69 B/P (MAP) 238/117 238/117 238/117 238/117 02/24/18 02/24/18 02/24/18 02/24/18 09:00 09:19 09:26 10:00 Pulse 62 62 Resp 18 B/P (MAP) 179/102 (127) Pulse Ox 97 96 97 O2 Delivery Nasal Cannula Nasal Cannula Nasal Cannula Nasal Cannula O2 Flow Rate 2.0 2.0 2.0 02/24/18 02/24/18 02/24/18 02/24/18 10:26 11:00 12:00 12:00 Pulse 66 70 Resp 18 18 B/P (MAP) 143/77 (99) 161/81 (107) Pulse Ox 96 96 95 O2 Delivery Nasal Cannula Nasal Cannula Nasal Cannula Nasal Cannula O2 Flow Rate 2.0 2.0 2.0 2.0 02/24/18 02/24/18 02/24/18 02/24/18 12:29 13:00 14:00 14:45 Pulse 69 69 67 Resp 19 25 B/P (MAP) 158/81 (106) 139/75 (96) 156/82 Pulse Ox 97 96 96 O2 Delivery Nasal Cannula Nasal Cannula Nasal Cannula O2 Flow Rate 2.0 2.0 2.0 02/24/18 02/24/18 02/24/18 14:45 14:46 15:00 Pulse 67 70 72 Resp 25 B/P (MAP) 156/82 156/82 137/75 (95) Pulse Ox 99 O2 Delivery Nasal Cannula O2 Flow Rate 2.0 Intake and Output 02/23/18 02/23/18 02/24/18 15:00 23:00 07:00 Intake Total 597.24 ml 320 ml Output Total 377 ml 825 ml Balance 220.24 ml -505 ml BERTRAM FORREST MD Feb 24, 2018 15:43
--- NOTE | 2018-02-24 17:19 | CARD ---
MR#: [id number] Date of Study: 02/24/2018 Ordering Physician: PRESLEY GILL, Referring Physician: RICKY PORTILLO Tech: Adelaide Farah DAVID APPROVED REPORT EXAM: Two-dimensional and M-mode echocardiogram with Doppler and color Doppler. Other Information Quality : Good INDICATION LV Function:Systolic 2D DIMENSIONS RVDd3.8 (2.9-3.5cm)Left Atrium(2D)4.1 (1.6-4.0cm) IVSd1.5 (0.7-1.1cm)Aortic Root(2D)3.0 (2.0-3.7cm) LVDd4.5 (3.9-5.9cm)LVOT Diameter2.1 (1.8-2.4cm) PWd1.1 (0.7-1.1cm)LVDs2.6 (2.5-4.0cm) FS (%) 30.0 %SV67.5 ml LVEF(%)60.0 (>50%) Aortic Valve AoV Peak Americo.175.1cm/sAoV VTI39.3cm AO Peak GR.12.3mmHgLVOT VTI 25.15cm AO Mean GR.7mmHgAVA (VTI)2.40cm2 Mitral Valve MV E Fgbnijdk11.3cm/sMV DECEL [id number] MV A Avtoznyp562.2cm/sE/A Ratio0.7 TDI Lateral E' P. V6.18cm/sMedial E' P. V4.70cm/s E/Lateral E'14.9E/Medial E'19.6 Tricuspid Valve TR P. Xjwozadn166yp/sRAP OINOWYMX9jtDs TR Peak Gr.86zuWvWUEB55jqZy Pulmonary Vein S1 Fwwtkgph20.7cm/sS2 Qhkedunl05.18cm/s D2 Safzzckb63.2cm/s LEFT VENTRICLE The left ventricle is normal size. There is mild asymmetric septal hypertrophy. The left ventricular systolic function is normal and the ejection fraction is within normal range. The Ejection Fraction i s 60%. There is normal LV segmental wall motion. Transmitral Doppler flow pattern is Grade I-abnormal relaxation pattern. RIGHT VENTRICLE The right ventricle is normal size. The right ventricular systolic function is normal. ATRIA The left atrium is mildly dilated. The right atrium size is normal. The interatrial septum is intact with no evidence for an atrial septal defect or patent foramen ovale as noted on 2-D or Doppler imagi ng. AORTIC VALVE The aortic valve is moderately thickened but opens well. Doppler and Color Flow revealed no significa nt aortic regurgitation. There is no significant aortic valvular stenosis. MITRAL VALVE The mitral valve is calcified but opens well. There is no evidence of mitral valve prolapse. There is no mitral valve stenosis. Doppler and Color-flow revealed mild mitral regurgitation. TRICUSPID VALVE The tricuspid valve is normal in structure and function. Doppler and Color Flow revealed physiologica l tricuspid regurgitation. There is mild pulmonary hypertension. The PA pressure was estimated at 36 mmHg. There is no tricuspid valve stenosis. PULMONIC VALVE The pulmonic valve is not well visualized. Doppler and Color Flow revealed mild pulmonic valvular reg urgitation. There is no pulmonic valvular stenosis. GREAT VESSELS The aortic root is normal in size. The ascending aorta is normal in size. The IVC is normal in size a nd collapses >50% with inspiration. PERICARDIAL EFFUSION There is a small circumferential pericardial effusion. Critical Notification Critical Value: No <Conclusion> There is mild asymmetric septal hypertrophy. The left ventricular systolic function is normal and the ejection fraction is within normal range. T he Ejection Fraction is 60%. Transmitral Doppler flow pattern is Grade I-abnormal relaxation pattern. The left atrium is mildly dilated. The right atrium size is normal. The aortic valve is moderately thickened but opens well. The mitral valve is calcified but opens well. Doppler and Color-flow revealed mild mitral regurgitation. Doppler and Color Flow revealed physiological tricuspid regurgitation. There is mild pulmonary hypertension. The PA pressure was estimated at 36 mmHg. The pulmonic valve is not well visualized. Doppler and Color Flow revealed mild pulmonic valvular regurgitation. There is a small circumferential pericardial effusion. Signed by : Presley Gill MD Electronically Approved : 02/24/2018 17:19:01
[2018-02-25] VITALS (15 sets, daily range): BP systolic 129–183; BP diastolic 60–95
[2018-02-25] MEDS: PANTOPRAZOLE 40 MG TABLET.DR. PO SCH (04:04)
[2018-02-25] MEDS: metFORMIN 500 MG TABLET PO SCH (07:24)
[2018-02-25] MEDS: amLODIPine BESYLATE 10 MG TABLET PO SCH (07:25)
[2018-02-25] MEDS: cloNIDine HCL 0.2 MG TABLET PO SCH ×2 (07:25→13:28)
[2018-02-25] MEDS: GLIMEPIRIDE 2 MG TABLET. PO SCH (07:25)
[2018-02-25] MEDS: ALBUTEROL SULFATE 2.5 MG/3 ML NEBU. NEB SCH ×2 (08:55→13:40)
[2018-02-25] MEDS: BUDESONIDE 0.5 MG/2 ML NEBU. NEB SCH (08:55)
[2018-02-25] MEDS: LOSARTAN POTASSIUM 50 MG TABLET. PO SCH (09:00)
[2018-02-25] MEDS: hydroCHLOROthiazide 25 MG TABLET PO SCH (09:00)
[2018-02-25] MEDS: POLYETHYLENE GLYCOL 3350 17 GM PACKET. PO SCH (09:00)
[2018-02-25] MEDS: DOCUSATE SODIUM 100 MG CAPSULE. PO SCH (09:26)
[2018-02-25] MEDS: CITALOPRAM 20 MG TABLET. PO SCH (09:26)
[2018-02-25] MEDS: ATENOLOL 50 MG TABLET. PO SCH ×2 (09:28→14:00)
[2018-02-25] MEDS: HYDROcodone/APAP 7.5/325MG 1 TAB TABLET PO PRN (09:33)
--- NOTE | 2018-02-25 09:36 | PDOC ---
SUBJECTIVE ROS No abdominal pain, feeling better OBJECTIVE Vital Signs Vital Signs Date Time Temp Pulse Resp B/P (MAP) Pulse Ox O2 Delivery O2 Flow Rate FiO2 02/25/18 09:00 63 16 129/76 (93) 95 Nasal Cannula 2.0 02/25/18 07:00 98.4 98.4 I & 0 Intake and Output 02/25/18 07:00 Intake Total 640 ml Output Total 1375 ml Balance -735 ml Intake Oral 640 ml Output Urine Total 1375 ml PHYSICAL EXAM Physical Exam GEN- Sitting up in chair, eating Breakfast HEEN: OM moist, Neck Supple CVS: RRR RESP: CTA Bilat, No use of accessory Muscles GI: BS + ve, Non Tender, Obese : [No CVA tenderness, No Suprapubic Tenderness, No Ferrell Skin- No Rash Neuro- A xO x3 DIAGNOSIS/ASSESSMENT Assessment & Plan JONO on CKD - Uncontrolled HTN , Vasomotor Non Oliguric , Baseline Creat 1.3 in 2017 as per [facility] records , dont know basline renal function as OP UA unremarkable Lytes and acid base stable , Currently No emergent indication for HD HTN- Uncontrolled ,Non compliant Currently on PO Multiple meds Losartan and HCTZ(held this am), latest BP normal CT- adrenals Normal . May need further isbell for Hyperaldo , r/o VENUS etc Defer to Cardiology Hypokalemia- Replace as needed Normal today CKD stage 3- Last Creat in Feb 18.3 Likely etiology HTNsive and Diab Nephrosclerosis , Could be progression of CKD- though pt states she has been told recently by pcp that her kidney function is normal DM defer to primary Discussed Plan with Pt and RN Renal Doppler No acute sonographic abnormality. No evidence of hemodynamically significant renal artery stenosis. COMMENT/RELEVANT DATA Meds Current Medications Medications (Trade) Dose Ordered Sig/Howard Start Time Stop Time Status Last Admin Dose Admin Acetaminophen (Tylenol) 650 mg PRN Q6HRS PRN 02/24/18 03:30 Acetaminophen/ Hydrocodone Bitart (Lortab 7.5/325) 1 tab PRN Q4HRS PRN 02/24/18 03:30 02/24/18 20:21 1 TAB Albuterol Sulfate (Ventolin Neb Soln) 2.5 mg Q6HRS 02/23/18 18:00 02/25/18 08:55 2.5 MG Amlodipine Besylate (Norvasc) 10 mg DAILY 02/23/18 15:00 02/25/18 07:25 10 MG Atenolol (Tenormin) 50 mg TID 02/23/18 15:00 02/24/18 20:18 50 MG Budesonide (Pulmicort) 0.5 mg RTBID 02/23/18 20:00 02/25/18 08:55 0.5 MG Citalopram Hydrobromide (CeleXA) 40 mg DAILY 02/23/18 15:00 02/24/18 08:46 40 MG Clonidine HCl (Catapres) 0.2 mg TID 02/23/18 15:00 02/25/18 07:25 0.2 MG Docusate Sodium (Colace) 100 mg BID 02/23/18 21:00 02/24/18 20:19 100 MG Glimepiride (Amaryl) 2 mg BID 02/23/18 21:00 02/25/18 07:25 2 MG Hydralazine HCl (Apresoline) 100 mg TID 02/23/18 15:00 02/25/18 07:25 100 MG Hydrochlorothiazide (Hydrodiuril) 25 mg DAILY 02/23/18 15:00 02/24/18 08:48 25 MG Influenza Virus Vaccine (Afluria Trivalent [id number] Syringe) 0.5 ml ONCE ONCE 02/25/18 09:00 02/25/18 09:04 DC Labetalol HCl (Normodyne Iv Push) 10 mg 1X ONCE 02/23/18 12:00 02/23/18 12:01 DC 02/23/18 11:54 10 MG Losartan Potassium (Cozaar) 100 mg DAILY 02/23/18 15:00 02/24/18 08:48 100 MG Metformin HCl (Glucophage) 500 mg BIDWMEALS 02/23/18 17:00 02/25/18 07:24 500 MG Multi-Ingredient Mouthwash/Gargle (Gi Cocktail) 20 ml 1X ONCE 02/23/18 12:45 02/23/18 12:46 DC 02/23/18 12:45 20 ML Nicardipine HCl 50 mg/Sodium Chloride 270 ml @ 27 mls/hr CONT PRN 02/23/18 12:45 Cancel Nicardipine/ Sodium Chloride 200 ml @ 0 mls/hr CONT PRN 02/23/18 12:45 02/23/18 12:50 25 MLS/HR Nitroglycerin (Nitro-Bid Oint) 1 inch 1X ONCE 02/23/18 12:00 02/23/18 12:01 DC 02/23/18 11:55 1 INCH Non-Formulary Medication (Albuterol Sulfate (Proventil Hfa Inhaler)) 1 puff PRN Q4HRS PRN 02/23/18 14:30 UNV Non-Formulary Medication (Mometasone/ Formoterol (Dulera 100 Mcg/5 Mcg Inhaler)) 2 puff BID 02/23/18 21:00 UNV Pantoprazole Sodium (Protonix) 40 mg DAILY06 02/24/18 06:00 02/25/18 04:04 40 MG Polyethylene Glycol (miraLAX PACKET) 17 gm DAILY 02/23/18 15:00 02/24/18 08:41 17 GM Lab Laboratory Tests Test 02/24/18 12:28 02/24/18 17:05 02/24/18 20:15 02/25/18 07:09 Glucose (Fingerstick) 163 mg/dL (70-99) 182 mg/dL (70-99) 137 mg/dL (70-99) 101 mg/dL (70-99) Results All relevant outside records, renal labs, imaging studies, telemetry/EKG's were reviewed Renal Doppler . No acute sonographic abnormality. No evidence of hemodynamically significant renal artery stenosis. KAE VELASQUEZ MD Feb 25, 2018 09:36
[2018-02-25 09:42] LABS: ALBUMIN 2.3 g/dL (3.4-5.0); CALCIUM 9.3 mg/dL (8.5-10.1); CREATININE 2.4 mg/dL (0.6-1.0); GFR 24.8; PHOSPHORUS 3.1 mg/dL (2.6-4.7); POTASSIUM 3.8 mmol/L (3.5-5.1)
[2018-02-25] MEDS ORDERED: LOSA1TAB7 PO (12:17)
--- NOTE | 2018-02-25 12:37 | PDOC ---
PROGRESS NOTES Subjective Subjective pt has had minimal chest pain over the last 24 hours she said that she had 2-3/10 pain substernally without radiation, without knowing what triggered the pain she did nto have increased shortness of breath during this pain echo showed EF of 60% blood pressure controlled on current regimen Objective Objective Vital Signs Date Time Temp Pulse Resp B/P (MAP) Pulse Ox O2 Delivery O2 Flow Rate FiO2 02/25/18 12:00 Nasal Cannula 2.0 02/25/18 12:00 93 16 131/77 (95) 95 02/25/18 07:00 98.4 98.4 Intake and Output 02/25/18 07:00 Intake Total 640 ml Output Total 1375 ml Balance -735 ml Intake Oral 640 ml Output Urine Total 1375 ml Physical Exam Heart: Regular rate, Normal S1, Normal S2, No murmurs Extremities: No clubbing, No cyanosis, No edema, Normal pulses General: Alert, Oriented X3, Cooperative, No acute distress Lungs: Clear to auscultation, Normal air movement Assessment Assessment pt admitted with hypertensive urgency, noncompliance on home medications Plan Plan of Care continue treatment for hypertension with po medication patient currently tolerating medications, with goal blood pressure being maintained Comment Review of Relevant I have reviewed the following items munir (where applicable) has been applied. Labs Laboratory Tests Test 02/23/18 13:45 02/23/18 17:58 02/24/18 06:40 02/24/18 12:28 Nasal Screen MRSA (PCR) Negative (Negative) Glucose (Fingerstick) 187 mg/dL (70-99) 163 mg/dL (70-99) White Blood Count 9.1 x10^3/uL (4.0-11.0) Red Blood Count 4.69 x10^6/uL (3.50-5.40) Hemoglobin 11.6 g/dL (12.0-15.5) Hematocrit 36.4 % (36.0-47.0) Mean Corpuscular Volume 78 fL (79-100) Mean Corpuscular Hemoglobin 25 pg (25-35) Mean Corpuscular Hemoglobin Concent 32 g/dL (31-37) Red Cell Distribution Width 17.2 % (11.5-14.5) Platelet Count 197 x10^3/uL (140-400) Neutrophils (%) (Auto) 63 % (31-73) Lymphocytes (%) (Auto) 24 % (24-48) Monocytes (%) (Auto) 9 % (0-9) Eosinophils (%) (Auto) 3 % (0-3) Basophils (%) (Auto) 1 % (0-3) Neutrophils # (Auto) 5.7 x10^3uL (1.8-7.7) Lymphocytes # (Auto) 2.2 x10^3/uL (1.0-4.8) Monocytes # (Auto) 0.8 x10^3/uL (0.0-1.1) Eosinophils # (Auto) 0.3 x10^3/uL (0.0-0.7) Basophils # (Auto) 0.1 x10^3/uL (0.0-0.2) Sodium Level 145 mmol/L (136-145) Potassium Level 3.4 mmol/L (3.5-5.1) Chloride Level 107 mmol/L (98-107) Carbon Dioxide Level 30 mmol/L (21-32) Anion Gap 8 (6-14) Blood Urea Nitrogen 31 mg/dL (7-20) Creatinine 2.5 mg/dL (0.6-1.0) Estimated GFR (Cockcroft-Gault) 23.7 Glucose Level 121 mg/dL (70-99) Calcium Level 9.1 mg/dL (8.5-10.1) Test 02/24/18 17:05 02/24/18 20:15 02/25/18 07:09 02/25/18 09:00 Glucose (Fingerstick) 182 mg/dL (70-99) 137 mg/dL (70-99) 101 mg/dL (70-99) Sodium Level 145 mmol/L (136-145) Potassium Level 3.8 mmol/L (3.5-5.1) Chloride Level 106 mmol/L (98-107) Carbon Dioxide Level 32 mmol/L (21-32) Anion Gap 7 (6-14) Blood Urea Nitrogen 28 mg/dL (7-20) Creatinine 2.4 mg/dL (0.6-1.0) Estimated GFR (Cockcroft-Gault) 24.8 Glucose Level 147 mg/dL (70-99) Calcium Level 9.3 mg/dL (8.5-10.1) Phosphorus Level 3.1 mg/dL (2.6-4.7) Iron Level 43 ug/dL (50-170) Total Iron Binding Capacity 307 ug/dL (250-450) Iron Saturation 14 % (15-34) Albumin 2.3 g/dL (3.4-5.0) Test 02/25/18 11:38 Glucose (Fingerstick) 135 mg/dL (70-99) Laboratory Tests Test 02/24/18 17:05 02/24/18 20:15 02/25/18 07:09 02/25/18 09:00 Glucose (Fingerstick) 182 mg/dL (70-99) 137 mg/dL (70-99) 101 mg/dL (70-99) Sodium Level 145 mmol/L (136-145) Potassium Level 3.8 mmol/L (3.5-5.1) Chloride Level 106 mmol/L (98-107) Carbon Dioxide Level 32 mmol/L (21-32) Anion Gap 7 (6-14) Blood Urea Nitrogen 28 mg/dL (7-20) Creatinine 2.4 mg/dL (0.6-1.0) Estimated GFR (Cockcroft-Gault) 24.8 Glucose Level 147 mg/dL (70-99) Calcium Level 9.3 mg/dL (8.5-10.1) Phosphorus Level 3.1 mg/dL (2.6-4.7) Iron Level 43 ug/dL (50-170) Total Iron Binding Capacity 307 ug/dL (250-450) Iron Saturation 14 % (15-34) Albumin 2.3 g/dL (3.4-5.0) Test 02/25/18 11:38 Glucose (Fingerstick) 135 mg/dL (70-99) Medications Current Medications Nitroglycerin (Nitro-Bid Oint) 1 inch 1X ONCE TP Last administered on at 11:55; Start 02/23/18 at 12:00; Stop 02/23/18 at 12:01; Status DC Labetalol HCl (Normodyne Iv Push) 10 mg 1X ONCE IVP Last administered on at 11:54; Start 02/23/18 at 12:00; Stop 02/23/18 at 12:01; Status DC Nicardipine HCl 50 mg/Sodium Chloride 270 ml @ 27 mls/hr CONT PRN IV SEE I/O RECORD; Start 02/23/18 at 12:45; Status Cancel Multi-Ingredient Mouthwash/Gargle (Gi Cocktail) 20 ml 1X ONCE SWSW Last administered on 02/23/18at 12:45; Start 02/23/18 at 12:45; Stop 02/23/18 at 12:46 ; Status DC Nicardipine/ Sodium Chloride 200 ml @ 0 mls/hr CONT PRN IV SEE I/O RECORD Last administered on 02/23/18at 12:50; Start 02/23/18 at 12:45 Amlodipine Besylate (Norvasc) 10 mg DAILY PO Last administered on 02/25/18 07: 25; Start 02/23/18 at 15:00 Atenolol (Tenormin) 50 mg TID PO Last administered on 02/25/18 09:28; Start 02/23/18 at 15:00 Clonidine HCl (Catapres) 0.2 mg TID PO Last administered on 02/25/18 07:25; Start 02/23/18 at 15:00 Docusate Sodium (Colace) 100 mg BID PO Last administered on 02/25/18 09:26; Start 02/23/18 at 21:00 Hydrochlorothiazide (Hydrodiuril) 25 mg DAILY PO Last administered on 08:48; Start 02/23/18 at 15:00 Pantoprazole Sodium (Protonix) 40 mg DAILY06 PO Last administered on 02/25/18 04:04; Start 02/24/18 at 06:00 Non-Formulary Medication (Albuterol Sulfate (Proventil Hfa Inhaler)) 1 puff PRN Q4HRS PRN IH FOR ASTHMA; Start 02/23/18 at 14:30; Status UNV Citalopram Hydrobromide (CeleXA) 40 mg DAILY PO Last administered on 02/25/18 09:26; Start 02/23/18 at 15:00 Glimepiride (Amaryl) 2 mg BID PO Last administered on 02/25/18 07:25; Start 02/23/18 at 21:00 Hydralazine HCl (Apresoline) 100 mg TID PO Last administered on 02/25/18 07:25 ; Start 02/23/18 at 15:00 Losartan Potassium (Cozaar) 100 mg DAILY PO Last administered on 02/24/18at 08: 48; Start 02/23/18 at 15:00 Metformin HCl (Glucophage) 500 mg BIDWMEALS PO Last administered on 02/25/18at 07:24; Start 02/23/18 at 17:00 Non-Formulary Medication (Mometasone/ Formoterol (Dulera 100 Mcg/5 Mcg Inhaler) ) 2 puff BID IH ; Start 02/23/18 at 21:00; Status UNV Polyethylene Glycol (miraLAX PACKET) 17 gm DAILY PO Last administered on at 08:41; Start 02/23/18 at 15:00 Albuterol Sulfate (Ventolin Neb Soln) 2.5 mg PRN Q4HRS PRN NEB SHORTNESS OF BREATH; Start 02/23/18 at 15:15 Albuterol Sulfate (Ventolin Neb Soln) 2.5 mg Q6HRS NEB Last administered on 02/25/18at 08:55; Start 02/23/18 at 18:00 Budesonide (Pulmicort) 0.5 mg RTBID NEB Last administered on 02/25/18at 08:55; Start 02/23/18 at 20:00 Acetaminophen (Tylenol) 650 mg PRN Q6HRS PRN PO HEADACHE; Start 02/24/18 at 03: 30 Acetaminophen/ Hydrocodone Bitart (Lortab 7.5/325) 1 tab PRN Q4HRS PRN PO PAIN Last administered on 02/25/18at 09:33; Start 02/24/18 at 03:30 Influenza Virus Vaccine (Afluria Trivalent [id number] Syringe) 0.5 ml ONCE ONCE VAX IM ; Start 02/25/18 at 09:00; Stop 02/25/18 at 09:04; Status DC Active Scripts Active Miralax (Polyethylene Glycol 3350) 17 Gm Powd.pack 1 Packet PO DAILY Colace (Docusate Sodium) 100 Mg Capsule 100 Mg PO BID Citalopram Hbr (Citalopram Hydrobromide) 20 Mg/10 Ml Solution 40 Mg PO DAILY 30 Days Reported Proventil Hfa Inhaler (Albuterol Sulfate) 6.7 Gm Hfa.aer.ad 1 Puff IH PRN Q4HRS PRN Dulera 100 Mcg/5 Mcg Inhaler (Mometasone/Formoterol) 13 Gm Hfa.aer.ad 2 Puff IH BID Hydrochlorothiazide Tablet (Hydrochlorothiazide) 25 Mg Tablet 25 Mg PO DAILY Hydralazine Hcl 100 Mg Tablet 1 Tab PO TID Atenolol 50 Mg Tablet 1 Tab PO TID Protonix (Pantoprazole Sodium) 40 Mg Tablet.dr 1 Tab PO DAILY Metformin Hcl 500 Mg Tablet 500 Mg PO BIDWMEALS Albuterol Sulfate Hfa Inhaler (Albuterol Sulfate) 8.5 Gm Hfa.aer.ad 8.5 Gm IH Clonidine Hcl 0.2 Mg Tablet 0.2 Mg PO TID Amlodipine Besylate 10 Mg Tablet 10 Mg PO DAILY Glimepiride 1 Mg Tablet 2 Mg PO BID Losartan Potassium 100 Mg Tablet 100 Mg PO DAILY Vitals/I & O Vital Sign - Last 24 Hours 02/24/18 02/24/18 02/24/18 02/24/18 13:00 14:00 14:45 14:45 Pulse 69 69 67 67 Resp 19 25 B/P (MAP) 158/81 (106) 139/75 (96) 156/82 156/82 Pulse Ox 96 96 O2 Delivery Nasal Cannula Nasal Cannula O2 Flow Rate 2.0 2.0 02/24/18 02/24/18 02/24/18 02/24/18 14:46 15:00 16:00 16:00 Pulse 70 72 62 Resp 25 17 B/P (MAP) 156/82 137/75 (95) 139/82 (101) Pulse Ox 99 97 O2 Delivery Nasal Cannula Nasal Cannula Nasal Cannula O2 Flow Rate 2.0 2.0 2.0 02/24/18 02/24/18 02/24/18 02/24/18 17:00 18:00 19:10 19:11 Temp 98.9 98.9 98.9 98.9 Pulse 60 78 68 68 Resp 19 22 16 16 B/P (MAP) 118/65 (82) 148/65 (92) 135/69 (91) 135/69 (91) Pulse Ox 97 94 95 95 O2 Delivery Nasal Cannula Nasal Cannula Nasal Cannula Nasal Cannula O2 Flow Rate 2.0 2.0 2.0 2.0 02/24/18 02/24/18 02/24/18 02/24/18 19:30 20:00 20:12 20:12 Pulse 66 Resp 18 B/P (MAP) 142/75 (97) Pulse Ox 98 97 97 O2 Delivery Nasal Cannula Nasal Cannula Nasal Cannula Nasal Cannula O2 Flow Rate 2.0 2.0 2.0 2.0 02/24/18 02/24/18 02/24/18 02/24/18 20:18 20:18 20:19 20:21 Pulse 63 62 65 Resp 19 B/P (MAP) 142/75 142/75 142/75 O2 Delivery Nasal Cannula O2 Flow Rate 2.0 02/24/18 02/24/18 02/24/18 02/24/18 21:13 22:00 23:00 23:38 Temp 98.9 98.9 Pulse 67 64 60 Resp 19 18 17 B/P (MAP) 128/68 (88) 114/69 (84) 124/70 (88) Pulse Ox 98 96 99 97 O2 Delivery Nasal Cannula Nasal Cannula Nasal Cannula Nasal Cannula O2 Flow Rate 2.0 2.0 2.0 2.0 02/24/18 02/25/18 02/25/18 02/25/18 23:54 00:14 01:00 02:00 Temp 98.6 98.6 Pulse 57 57 62 Resp 18 17 15 B/P (MAP) 139/64 (89) 145/60 (88) 141/66 (91) Pulse Ox 99 98 99 O2 Delivery Nasal Cannula Nasal Cannula Nasal Cannula Nasal Cannula O2 Flow Rate 2.0 2.0 2.0 2.0 02/25/18 02/25/18 02/25/18 02/25/18 03:00 04:00 04:19 05:00 Pulse 53 56 57 Resp 15 14 19 B/P (MAP) 175/95 (121) 154/87 (109) 170/87 (114) Pulse Ox 92 95 96 O2 Delivery Nasal Cannula Nasal Cannula Nasal Cannula Nasal Cannula O2 Flow Rate 2.0 2.0 2.0 2.0 02/25/18 02/25/18 02/25/18 02/25/18 06:07 07:00 07:25 07:25 Temp 98.4 98.4 Pulse 62 54 54 54 Resp 20 18 B/P (MAP) 171/91 (117) 183/91 (121) 183/91 183/91 Pulse Ox 100 O2 Delivery Nasal Cannula Nasal Cannula O2 Flow Rate 2.0 2.0 02/25/18 02/25/18 02/25/18 02/25/18 07:25 07:50 08:00 08:58 Pulse 54 64 Resp 16 B/P (MAP) 183/91 158/84 (108) Pulse Ox 98 97 O2 Delivery Nasal Cannula Nasal Cannula Nasal Cannula O2 Flow Rate 2.0 2.0 2.0 02/25/18 02/25/18 02/25/18 02/25/18 08:59 09:00 09:28 09:33 Pulse 63 59 Resp 16 16 B/P (MAP) 129/76 (93) 129/76 Pulse Ox 97 95 O2 Delivery Nasal Cannula Nasal Cannula Nasal Cannula O2 Flow Rate 2.0 2.0 2.0 02/25/18 02/25/18 02/25/18 02/25/18 10:04 10:30 11:00 12:00 Pulse 61 57 93 Resp 18 18 16 16 B/P (MAP) 145/79 (101) 137/76 (96) 131/77 (95) Pulse Ox 99 97 97 95 O2 Delivery Nasal Cannula Nasal Cannula Nasal Cannula Room Air O2 Flow Rate 2.0 2.0 2.0 02/25/18 12:00 O2 Delivery Nasal Cannula O2 Flow Rate 2.0 Intake and Output 02/24/18 02/24/18 02/25/18 15:00 23:00 07:00 Intake Total 240 ml 200 ml 200 ml Output Total 500 ml 375 ml 500 ml Balance -260 ml -175 ml -300 ml BERTRAM FORREST MD Feb 25, 2018 12:37
--- NOTE | 2018-02-25 12:40 | PDOC ---
Subjective: Subjective: Feels much better, denies abd pain. Objective: Objective: Reviewed w/ RN - going home. Vital Signs: Vital Signs Date Time Temp Pulse Resp B/P (MAP) Pulse Ox O2 Delivery O2 Flow Rate FiO2 02/25/18 12:00 Nasal Cannula 2.0 02/25/18 12:00 93 16 131/77 (95) 95 02/25/18 07:00 98.4 98.4 Labs: Laboratory Tests Test 02/24/18 17:05 02/24/18 20:15 02/25/18 07:09 02/25/18 09:00 Glucose (Fingerstick) 182 mg/dL 137 mg/dL 101 mg/dL Sodium Level 145 mmol/L Potassium Level 3.8 mmol/L Chloride Level 106 mmol/L Carbon Dioxide Level 32 mmol/L Anion Gap 7 Blood Urea Nitrogen 28 mg/dL Creatinine 2.4 mg/dL Estimated GFR (Cockcroft-Gault) 24.8 Glucose Level 147 mg/dL Calcium Level 9.3 mg/dL Phosphorus Level 3.1 mg/dL Iron Level 43 ug/dL Total Iron Binding Capacity 307 ug/dL Iron Saturation 14 % Albumin 2.3 g/dL Test 02/25/18 11:38 Glucose (Fingerstick) 135 mg/dL PE: GEN: NAD, eating lunch and watching tv in chair LUNGS: CTAB HEART: RRR ABD: S/ND/NT NEURO/PSYCH: A & O 3 A/P: HTN, JONO/CKD Abd pain - resolved -- Improved, plans to DC. Encouraged compliance w/ PPI for known GERD. AMI AZUL Feb 25, 2018 12:40
--- NOTE | 2018-02-25 12:40 | DS ---
DATE OF DISCHARGE: 02/25/2018 ADMITTING DIAGNOSIS: Hypertensive emergency. DISMISSAL DIAGNOSIS: Hypertensive emergency. SECONDARY DIAGNOSES: 1. Acute on chronic renal failure. 2. Severe protein malnutrition. 3. Adhesional abdominal pain. 4. Type 2 diabetes. 5. Hypertension. 6. Asthma. 7. Osteoarthritis. 8. Anxiety and depression. 9. Gastroesophageal reflux disease. HISTORY OF PRESENT ILLNESS AND HOSPITAL COURSE: This patient is a 62-year-old -[place] female with severe hypertension, came in to the Emergency Room for abdominal pain, was found to be significantly hypertensive and having increased BUN and creatinine. She was admitted for IV fluids and Nipride drip to lower her blood pressure. This was accomplished. She was found to be moderately to severely noncompliant with medications due to confusion with her medication regime. This was corrected during hospital stay and patient's blood pressure came back under control with appropriate medication and current medical treatments. Renal Medicine, Cardiology and GI were consulted and the patient was stable. Recommendations for decrease and possibly discontinuation of Hyzaar and metformin due to renal disease were made and this will be evaluated as an outpatient. DISCHARGE MEDICATIONS: She will be discharged on the following medications, Hyzaar 100/25 one daily, Proventil inhaler 2 puffs q 4 p.r.n., amlodipine 10 mg daily, atenolol 50 mg t.i.d., citalopram 40 mg daily, clonidine 0.2 t.i.d., Colace 100 mg b.i.d., glimepiride 2 mg b.i.d., hydralazine 100 mg t.i.d., metformin 500 mg b.i.d., Dulera 100/5 two puffs b.i.d., pantoprazole 40 mg daily, MiraLax 17 grams in water daily. FOLLOWUP: She will follow up in the office in 1 week for consideration of medication adjustment and recheck of labs. RICKY PORTILLO MD DR: CLARENCE/kat JOB#: [id number] / [id number]
== END 2018-02-25 14:15 | disposition home or self-care (01) | DRG 682 ==
LOC: ER 10:23 → 1 WEST ICU 12:50
PROVIDERS: ADMIT Family Medicine; ATTEND Family Medicine
DX: N17.9 Acute kidney failure, unspecified (principal); E43 Unspecified severe protein-calorie malnutrition; I16.1 Hypertensive emergency; N18.9 Chronic kidney disease, unspecified; G43.909 Migraine, unspecified, not intractable, without status migrainosus; E11.22 Type 2 diabetes mellitus with diabetic chronic kidney disease; F17.210 Nicotine dependence, cigarettes, uncomplicated; E78.5 Hyperlipidemia, unspecified; F32.9 Major depressive disorder, single episode, unspecified; F41.9 Anxiety disorder, unspecified; G47.33 Obstructive sleep apnea (adult) (pediatric); M19.90 Unspecified osteoarthritis, unspecified site; I12.9 Hypertensive chronic kidney disease with stage 1 through stage 4 chronic kidney disease, or unspecified chronic kidney disease; K21.9 Gastro-esophageal reflux disease without esophagitis; J44.9 Chronic obstructive pulmonary disease, unspecified; K57.90 Diverticulosis of intestine, part unspecified, without perforation or abscess without bleeding; Z82.49 Family history of ischemic heart disease and other diseases of the circulatory system; Z83.3 Family history of diabetes mellitus; Z68.39 Body mass index [BMI] 39.0-39.9, adult; Z87.11 Personal history of peptic ulcer disease; Z79.899 Other long term (current) drug therapy; Z91.14 Patient's other noncompliance with medication regimen; Z91.19 Patient's noncompliance with other medical treatment and regimen; Z99.81 Dependence on supplemental oxygen
CPT/HCPCS: 36415; 76700; 80048; 80069; 80076; 82962; 83540; 83550; 83690; 85025; 87641; 90471; 90756; 93306; 93975; 94640; 94760; 96365; 96375; J3490; J7613; J7626; 99285-25; Q2035

== ENCOUNTER 2018-07-27 16:10 | Inpatient (IN) | payer OTHER ==
[~2018-07-27] VITALS: Ht 152.4 cm; Wt 92.2 kg
[~2018-07-27 16:10] MED LIST changes: +ALBU2.5V8 IH; -AMLO10TA6 PO; +AMLO10TA8 PO; +ATEN50TA PO; +HYDR-2145 PO; -HYDR-2762 PO; +HYDR-2765 PO; +HYDR-3164 PO; -HYDR-971 PO; +HYDR100T24 PO; +LOSA100T14 PO; -LOSA100T7 PO; +LOSA1TAB7 PO; +MOME13HF2 IH
[2018-07-27 17:46] LABS: BASO # 0.1 x10^3/uL (0.0-0.2); BASO % 1 % (0-3); EOS # 0.4 x10^3/uL (0.0-0.7); EOS % 6 % (0-3); HEMATOCRIT 38.6 % (36.0-47.0); HEMOGLOBIN 12.1 g/dL (12.0-15.5); LYMPH # 1.6 x10^3/uL (1.0-4.8); LYMPH % 23 % (24-48); MEAN CORPUSCULAR HEMOGLOBIN 25 pg (25-35); MEAN CORPUSCULAR HGB CONC 31 g/dL (31-37); MEAN CORPUSCULAR VOLUME 78 fL (79-100); MONO # 0.6 x10^3/uL (0.0-1.1); MONO % 8 % (0-9); NEUT # 4.3 x10^3uL (1.8-7.7); NEUT % 61 % (31-73); PLATELET COUNT 207 x10^3/uL (140-400); RED BLOOD COUNT 4.95 x10^6/uL (3.50-5.40); RED CELL DISTRIBUTION WIDTH 16.5 % (11.5-14.5); WHITE BLOOD COUNT 7.1 x10^3/uL (4.0-11.0)
--- NOTE | 2018-07-27 17:46 | PHYS DOC ---
Past Medical History Past Medical History: Asthma, Diabetes-Type II, GERD, GI Bleed, Hypertension, Hepatitis Additional Past Medical Histor: sleep apnea; ulcers; GI bleed (GLADYS SERRATO APRN) Past Surgical History: Other Additional Past Surgical Histo: Umbilical hernia repair; colon resection (GLADYS SERRATO APRN) Alcohol Use: None Drug Use: None (GLADYS SERRATO APRN) Adult General Chief Complaint Chief Complaint: OTHER COMPLAINTS HPI HPI 63 y/o female end-stage ER via POV after her doctor had called her stating the chest x-ray she had last Thursday showed fluid on her lungs and so she was advised to come to the ER for evaluation. Patient reports over the past couple of weeks she has had productive cough, shortness of air, and intermittent chest pain. She denies fever, urinary symptoms, or N/V/D. Patient reports she has had some intermittent abdominal pain with concerns of constipation. She reports she is a daily smoker. (GLADYS SERRATO APRN) Review of Systems Review of Systems Constitutional: Denies fever or chills [] Eyes: Denies change in visual acuity, redness, or eye pain [] HENT: Denies nasal congestion or sore throat [] Respiratory: Reports productive cough with thick white phlegm. Reports shortness of air which increases with exertion Cardiovascular: Reports chest pain intermittently radiating from side to side denies radiation into extremities, neck, or back GI: Denies nausea, vomiting, bloody stools or diarrhea. Reports diffuse abdominal pain and bloating with concerns for constipation : Denies dysuria or hematuria [] Musculoskeletal: Denies back/neck pain or joint pain [] Integument: Denies rash or skin lesions. Reports increased swelling and bilateral lower legs and feet Neurologic: Denies headache, focal weakness or sensory changes [] Endocrine: Denies polyuria or polydipsia [] All other systems were reviewed and found to be within normal limits, except as documented in this note. (GLADYS SERRATO APRN) Physical Exam Physical Exam Constitutional: Well developed, well nourished, no acute distress, non-toxic appearance. [] HENT: Normocephalic, atraumatic, mucous membranes pink/dry, no oral exudates, nose normal. [] Eyes: Pupils equal, conjunctiva normal, no discharge. [] Neck: Normal range of motion, no tenderness, supple, no stridor. Midline Cardiovascular: Bradycardic heart rate regular rhythm, no murmur [] Lungs & Thorax: Coarse lung sounds in bilateral upper lung edwards. No wheezing. Diminished in bases. Respirations equal and nonlabored. Patient speaking in full sentences Abdomen: Bowel sounds normal, soft/obese, diffuse tenderness in all abdomen with no focal area-no distention or rigidity, no masses, no pulsatile masses. [ ] Skin: Warm, dry, no erythema, no rash. [] Back: No tenderness, no CVA tenderness. [] Extremities: No tenderness, no cyanosis, no clubbing, ROM intact, 1+ nonpitting bilat. pedal edema. 2+ bilateral dorsalis pedis and posterior tibial Neurologic: Alert and oriented X 3, normal motor function, normal sensory function, no focal deficits noted. [] Psychologic: Affect normal, judgement normal, mood normal. [] (REFFITT,GLADYS Isabel APRN) Current Patient Data Vital Signs Vital Signs Date Time Temp Pulse Resp B/P (MAP) Pulse Ox O2 Delivery O2 Flow Rate FiO2 07/27/18 19:17 58 22 170/87 (114) 94 Room Air 07/27/18 16:40 98.3 98.3 (NEELA MOULTON MD) Lab Values Laboratory Tests Test 07/27/18 16:44 07/27/18 17:11 Urine Collection Type Unknown Urine Color Yellow Urine Clarity Clear Urine pH 6.0 Urine Specific Snyder 1.015 Urine Protein >=300 mg/dL (NEG-TRACE) Urine Glucose (UA) Negative mg/dL (NEG) Urine Ketones (Stick) Negative mg/dL (NEG) Urine Blood Negative (NEG) Urine Nitrite Negative (NEG) Urine Bilirubin Negative (NEG) Urine Urobilinogen Dipstick 0.2 mg/dL (0.2 mg/dL) Urine Leukocyte Esterase Negative (NEG) Urine RBC Occ /HPF (0-2) Urine WBC Occ /HPF (0-4) Urine Squamous Epithelial Cells Few /LPF Urine Bacteria Few /HPF (0-FEW) Urine Hyaline Casts Occasional /HPF Urine Mucus Slight /LPF White Blood Count 7.1 x10^3/uL (4.0-11.0) Red Blood Count 4.95 x10^6/uL (3.50-5.40) Hemoglobin 12.1 g/dL (12.0-15.5) Hematocrit 38.6 % (36.0-47.0) Mean Corpuscular Volume 78 fL (79-100) L Mean Corpuscular Hemoglobin 25 pg (25-35) Mean Corpuscular Hemoglobin Concent 31 g/dL (31-37) Red Cell Distribution Width 16.5 % (11.5-14.5) H Platelet Count 207 x10^3/uL (140-400) Neutrophils (%) (Auto) 61 % (31-73) Lymphocytes (%) (Auto) 23 % (24-48) L Monocytes (%) (Auto) 8 % (0-9) Eosinophils (%) (Auto) 6 % (0-3) H Basophils (%) (Auto) 1 % (0-3) Neutrophils # (Auto) 4.3 x10^3uL (1.8-7.7) Lymphocytes # (Auto) 1.6 x10^3/uL (1.0-4.8) Monocytes # (Auto) 0.6 x10^3/uL (0.0-1.1) Eosinophils # (Auto) 0.4 x10^3/uL (0.0-0.7) Basophils # (Auto) 0.1 x10^3/uL (0.0-0.2) Sodium Level 144 mmol/L (136-145) Potassium Level 3.4 mmol/L (3.5-5.1) L Chloride Level 105 mmol/L (98-107) Carbon Dioxide Level 31 mmol/L (21-32) Anion Gap 8 (6-14) Blood Urea Nitrogen 30 mg/dL (7-20) H Creatinine 2.6 mg/dL (0.6-1.0) H Estimated GFR (Cockcroft-Gault) 22.6 BUN/Creatinine Ratio 12 (6-20) Glucose Level 168 mg/dL (70-99) H Lactic Acid Level 0.9 mmol/L (0.4-2.0) Calcium Level 9.8 mg/dL (8.5-10.1) Magnesium Level 1.8 mg/dL (1.8-2.4) Total Bilirubin 0.3 mg/dL (0.2-1.0) Aspartate Amino Transferase (AST) 12 U/L (15-37) L Alanine Aminotransferase (ALT) 15 U/L (14-59) Alkaline Phosphatase 100 U/L (46-116) Troponin I Quantitative < 0.017 ng/mL (0.000-0.055) BL-Ekh-G-Type Natriuretic Peptide 138 pg/mL (0-124) H Total Protein 7.0 g/dL (6.4-8.2) Albumin 2.8 g/dL (3.4-5.0) L Albumin/Globulin Ratio 0.7 (1.0-1.7) L Laboratory Tests 07/27/18 17:11 Laboratory Tests 07/27/18 17:11 (NEELA MOULTON MD) Lab Values Laboratory Tests Test 07/27/18 16:44 07/27/18 17:11 Urine Collection Type Unknown Urine Color Yellow Urine Clarity Clear Urine pH 6.0 Urine Specific Snyder 1.015 Urine Protein >=300 mg/dL (NEG-TRACE) Urine Glucose (UA) Negative mg/dL (NEG) Urine Ketones (Stick) Negative mg/dL (NEG) Urine Blood Negative (NEG) Urine Nitrite Negative (NEG) Urine Bilirubin Negative (NEG) Urine Urobilinogen Dipstick 0.2 mg/dL (0.2 mg/dL) Urine Leukocyte Esterase Negative (NEG) Urine RBC Occ /HPF (0-2) Urine WBC Occ /HPF (0-4) Urine Squamous Epithelial Cells Few /LPF Urine Bacteria Few /HPF (0-FEW) Urine Hyaline Casts Occasional /HPF Urine Mucus Slight /LPF White Blood Count 7.1 x10^3/uL (4.0-11.0) Red Blood Count 4.95 x10^6/uL (3.50-5.40) Hemoglobin 12.1 g/dL (12.0-15.5) Hematocrit 38.6 % (36.0-47.0) Mean Corpuscular Volume 78 fL (79-100) L Mean Corpuscular Hemoglobin 25 pg (25-35) Mean Corpuscular Hemoglobin Concent 31 g/dL (31-37) Red Cell Distribution Width 16.5 % (11.5-14.5) H Platelet Count 207 x10^3/uL (140-400) Neutrophils (%) (Auto) 61 % (31-73) Lymphocytes (%) (Auto) 23 % (24-48) L Monocytes (%) (Auto) 8 % (0-9) Eosinophils (%) (Auto) 6 % (0-3) H Basophils (%) (Auto) 1 % (0-3) Neutrophils # (Auto) 4.3 x10^3uL (1.8-7.7) Lymphocytes # (Auto) 1.6 x10^3/uL (1.0-4.8) Monocytes # (Auto) 0.6 x10^3/uL (0.0-1.1) Eosinophils # (Auto) 0.4 x10^3/uL (0.0-0.7) Basophils # (Auto) 0.1 x10^3/uL (0.0-0.2) Sodium Level 144 mmol/L (136-145) Potassium Level 3.4 mmol/L (3.5-5.1) L Chloride Level 105 mmol/L (98-107) Carbon Dioxide Level 31 mmol/L (21-32) Anion Gap 8 (6-14) Blood Urea Nitrogen 30 mg/dL (7-20) H Creatinine 2.6 mg/dL (0.6-1.0) H Estimated GFR (Cockcroft-Gault) 22.6 BUN/Creatinine Ratio 12 (6-20) Glucose Level 168 mg/dL (70-99) H Lactic Acid Level 0.9 mmol/L (0.4-2.0) Calcium Level 9.8 mg/dL (8.5-10.1) Magnesium Level 1.8 mg/dL (1.8-2.4) Total Bilirubin 0.3 mg/dL (0.2-1.0) Aspartate Amino Transferase (AST) 12 U/L (15-37) L Alanine Aminotransferase (ALT) 15 U/L (14-59) Alkaline Phosphatase 100 U/L (46-116) Troponin I Quantitative < 0.017 ng/mL (0.000-0.055) WO-Rxm-K-Type Natriuretic Peptide 138 pg/mL (0-124) H Total Protein 7.0 g/dL (6.4-8.2) Albumin 2.8 g/dL (3.4-5.0) L Albumin/Globulin Ratio 0.7 (1.0-1.7) L Laboratory Tests 07/27/18 17:11 Laboratory Tests 07/27/18 17:11 (GLADYS SERRATO APRN) EKG EKG EKG obtained 07/27/18 at 1825 Interpreted by ER physician Sinus bradycardia Rate 51 No STEMI (GLADYS SERRATO APRN) Radiology/Procedures Radiology/Procedures [] (GLADYS SERRATO APRN) Course & Med Decision Making Course & Med Decision Making Pertinent Labs and Imaging studies reviewed. (See chart for details) 194: Patient was sent to the ER as she had had chest x-ray done last week which was concerning for fluid retention. While in the ER patient reports she has had intermittent shortness of air as well as chest pain with symptoms ongoing for the past month. Patient states she has had slight increase in swelling in bilateral lower extremities. While in the ER she has denied chest pain. Chest x-ray was obtained and reviewed by Dr. Wolf with no acute obvious findings. Pt had voiced c/o abd bloating and pain which has been intermittent with concerns for constipation- again xray viewed by Dr. Wolf with no acute findings. EKG with no acute ST elevation/STEMI and troponin < 0.017. BNP NL at 138. Renal functions elevated at 30/2.6. Spoke with Dr. Gong who is oncall for pt's PCP Dr. Salvador and discussed pt's case and admit plan. Will place cardiology consult per her request with admit orders and provide pt with Duoneb tx. (GLADYS SERRATO APRN) Course & Med Decision Making @0543 on 07/29/18: Eye was not involved with care of this patient after [address] Moulton (NEELA MOULTON MD) Dragon Disclaimer Dragon Disclaimer This electronic medical record was generated, in whole or in part, using a voice recognition dictation system. (GLADYS SERRATO APRN) Departure Departure Impression: Primary Impression: Dyspnea Additional Impression: Acute renal injury Disposition: ADMITTED INPATIENT Admitting Physician: Rajwinder Gong (GLADYS SERRATO APRN) Condition: STABLE Referrals: RICKY SALVADOR MD (PCP) Scripts Aspirin (ASPIRIN EC) 81 Mg Tablet. 81 MG PO [id number] for chest pain for 30 Days, #30 TAB.SR Prov: RAJWINDER GONG MD 07/28/18 Problem Qualifiers GLADYS SERRATO GRAIN INSPECTOR Jul 27, 2018 17:45 NEELA MOULTON MD Jul 29, 2018 05:44
[2018-07-27 17:53] LABS: BILIRUBIN,URINE NEGATIVE (NEG); CLARITY,URINE CLEAR; COLOR,URINE YELLOW; NITRITE,URINE NEGATIVE (NEG); PROTEIN,URINE >=300 mg/dL (NEG-TRACE); UROBILINOGEN,URINE 0.2 mg/dL (0.2 mg/dL)
[2018-07-27 17:56] LABS: CALCIUM 9.8 mg/dL (8.5-10.1); CREATININE 2.6 mg/dL (0.6-1.0); GFR 22.6; POTASSIUM 3.4 mmol/L (3.5-5.1)
[2018-07-27 17:58] LABS: BACTERIA,URINE FEW /HPF (0-FEW); HYALINE CASTS, URINE OCCASIONAL /HPF; RBC,URINE OCC /HPF (0-2); SQUAMOUS EPITHELIAL CELL,UR FEW /LPF; WBC,URINE OCC /HPF (0-4)
[2018-07-27 18:11] LABS: ALBUMIN 2.8 g/dL (3.4-5.0); ALBUMIN/GLOBULIN RATIO 0.7 (1.0-1.7); MAGNESIUM 1.8 mg/dL (1.8-2.4); TOTAL BILIRUBIN 0.3 mg/dL (0.2-1.0)
[2018-07-27] MEDS ORDERED: IV NORMAL SALINE 500ML BAG 500 ML IV ONE (20:15)
[2018-07-27] MEDS ORDERED: LOSA1TAB22 PO (22:11)
[2018-07-27] MEDS ORDERED: HYDR100T24 PO (22:11)
[2018-07-27] MEDS ORDERED: HYDR-2765 PO (22:11)
[2018-07-27] MEDS ORDERED: FLUT1BLS3 IH (22:18)
[2018-07-27] MEDS ORDERED: ALPR0.5T6 PO (22:18)
[2018-07-27] MEDS ORDERED: NICOTINE 21MG PATCH. TD ONE (22:45)
[2018-07-27 23:18] VITALS: BP 145/71
[2018-07-28] MEDS: HYDROcodone/APAP 7.5/325MG 1 TAB TABLET PO PRN ×3 (01:58→20:17)
[2018-07-28 03:28] VITALS: BP 154/87
[2018-07-28 07:00] VITALS: BP 156/89
--- NOTE | 2018-07-28 07:06 | EKG ---
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
[2018-07-28 07:11] LABS: ALBUMIN/GLOBULIN RATIO 0.7 (1.0-1.7); CALCIUM 9.7 mg/dL (8.5-10.1); CREATININE 2.4 mg/dL (0.6-1.0); GFR 24.8; TOTAL BILIRUBIN 0.2 mg/dL (0.2-1.0); TOTAL PROTEIN 7.6 g/dL (6.4-8.2)
[2018-07-28 07:15] LABS: POTASSIUM 2.8 mmol/L (3.5-5.1)
[2018-07-28 07:33] LABS: BASO # 0.1 x10^3/uL (0.0-0.2); BASO % 1 % (0-3); EOS # 0.5 x10^3/uL (0.0-0.7); EOS % 6 % (0-3); HEMATOCRIT 41.4 % (36.0-47.0); HEMOGLOBIN 13.2 g/dL (12.0-15.5); LYMPH # 2.4 x10^3/uL (1.0-4.8); LYMPH % 28 % (24-48); MEAN CORPUSCULAR HEMOGLOBIN 25 pg (25-35); MEAN CORPUSCULAR HGB CONC 32 g/dL (31-37); MEAN CORPUSCULAR VOLUME 78 fL (79-100); MONO # 0.7 x10^3/uL (0.0-1.1); MONO % 9 % (0-9); NEUT # 4.9 x10^3uL (1.8-7.7); NEUT % 57 % (31-73); PLATELET COUNT 211 x10^3/uL (140-400); RED CELL DISTRIBUTION WIDTH 16.3 % (11.5-14.5); WHITE BLOOD COUNT 8.6 x10^3/uL (4.0-11.0)
--- NOTE | 2018-07-28 07:47 | RAD ---
CHEST PA LATERAL, ABDOMEN SUPINE UPRIGHT History: ER PATIENT. EPIGASTRIC PAIN, CHRONIC COUGH. HX ASTHMA, HTN, DIABETES. PRIOR XRAY. ; Diffuse abdominal pain Comparison: 07/23/2018 two-view chest x-ray exam, 03/02/2012 CT abdomen and pelvis without and with contrast., 07/23/2018 two-view chest x-ray exam Findings: The cardiomediastinal silhouette is normal. Pulmonary vasculature is normal. Vascular fullness at the aorticopulmonary window is evident. The lungs are clear. No pleural effusion or pneumothorax is seen. There is no acute bone abnormality. Supine and upright views of the abdomen were obtained. Fluid levels are present within nondistended bowel. Right lower pole renal calculus is evident measuring up to 0.6 cm diameter. Calcific densities within the pelvis probably represent phleboliths. No bowel obstruction. No extraluminal gas. IMPRESSION: Nonspecific fullness at the aorticopulmonary window is more evident since 07/23/2018 two-view chest x-ray exam and of indeterminate significant. No focal infiltrate. Consider interval follow-up CT chest with contrast if able. No bowel obstruction. Fluid levels in bowel may represent gastroenteritis. Electronically signed by: Zhang Deal MD (07/28/2018 7:44 AM) [facility]
[2018-07-28] MEDS: POTASSIUM CHLORIDE 20 MEQ TABLET.ER. PO SCH ×3 (07:58→16:50)
[2018-07-28] MEDS ORDERED: IPRATRPIUM/ALBUTEROL 0.5/2.5MG 3 ML NEBU. NEB SCH (08:00)
--- NOTE | 2018-07-28 08:58 | PDOC ---
PROGRESS NOTES Subjective Subjective Patient states she feels better and is ready to go home today. Objective Objective Vital Signs Date Time Temp Pulse Resp B/P (MAP) Pulse Ox O2 Delivery O2 Flow Rate FiO2 07/28/18 07:00 99.0 71 20 156/89 (111) 100 Room Air 99.0 Intake and Output 07/28/18 07:00 Intake Total 240 ml Output Total 700 ml Balance -460 ml Intake Oral 240 ml Output Urine Total 700 ml # Voids 2 Physical Exam Abdomen: Normal bowel sounds, Soft, No tenderness Heart: Regular rate Extremities: No edema General: Alert, Oriented X3, No acute distress Lungs: Other (BS moderately decreased throughout but otherwise CTA, no wheezing , no cough with exam) Plan Plan of Care 1. Asthma with viral bronchitis - patient was advised to come to ER yesterday as CXR she had done as outpatient 07/23/18 showed some diffuse infiltrates. Dr Salvador had already started treatment of this with a Z pack and Prednisone taper. Patient had been taking these medications and using the new inhaler he gave her and her cough and SOA had improved. CXR last night was clear. Patient is not hypoxic on room air and feels better. Will discharge home today. 2. chest pain with hx mild diastolic CHF - patient states she has not had any recent chest pains but does get them sometimes. Troponin negative. Last Echo showed preserved EF. 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 Have consulted [facility] to see patient here, further evaluation per their recommendations. 3. CKD III - patient's renal function had worsened on recent lab in our office and she was referred to Nephrology. Has not seen them yet but intends to. Lab here is stable and even mildly improved after fluid bolus last night. Patient advised to follow up at for ongoing tx. 4. HTN - resume home meds. 5. DM2 - has been controlled, continue Amaryl. 6. abdominal pain - xray unremarkable. Patient denies pain at this time and is requesting more food than what was on her breakfast tray today. No further evaluation presently indicated. Comment Review of Relevant I have reviewed the following items munir (where applicable) has been applied. Labs Laboratory Tests Test 07/27/18 16:44 07/27/18 17:11 07/28/18 04:30 Urine Collection Type Unknown Urine Color Yellow Urine Clarity Clear Urine pH 6.0 Urine Specific Cascade 1.015 Urine Protein >=300 mg/dL (NEG-TRACE) Urine Glucose (UA) Negative mg/dL (NEG) Urine Ketones (Stick) Negative mg/dL (NEG) Urine Blood Negative (NEG) Urine Nitrite Negative (NEG) Urine Bilirubin Negative (NEG) Urine Urobilinogen Dipstick 0.2 mg/dL (0.2 mg/dL) Urine Leukocyte Esterase Negative (NEG) Urine RBC Occ /HPF (0-2) Urine WBC Occ /HPF (0-4) Urine Squamous Epithelial Cells Few /LPF Urine Bacteria Few /HPF (0-FEW) Urine Hyaline Casts Occasional /HPF Urine Mucus Slight /LPF White Blood Count 7.1 x10^3/uL (4.0-11.0) 8.6 x10^3/uL (4.0-11.0) Red Blood Count 4.95 x10^6/uL (3.50-5.40) 5.30 x10^6/uL (3.50-5.40) Hemoglobin 12.1 g/dL (12.0-15.5) 13.2 g/dL (12.0-15.5) Hematocrit 38.6 % (36.0-47.0) 41.4 % (36.0-47.0) Mean Corpuscular Volume 78 fL (79-100) 78 fL (79-100) Mean Corpuscular Hemoglobin 25 pg (25-35) 25 pg (25-35) Mean Corpuscular Hemoglobin Concent 31 g/dL (31-37) 32 g/dL (31-37) Red Cell Distribution Width 16.5 % (11.5-14.5) 16.3 % (11.5-14.5) Platelet Count 207 x10^3/uL (140-400) 211 x10^3/uL (140-400) Neutrophils (%) (Auto) 61 % (31-73) 57 % (31-73) Lymphocytes (%) (Auto) 23 % (24-48) 28 % (24-48) Monocytes (%) (Auto) 8 % (0-9) 9 % (0-9) Eosinophils (%) (Auto) 6 % (0-3) 6 % (0-3) Basophils (%) (Auto) 1 % (0-3) 1 % (0-3) Neutrophils # (Auto) 4.3 x10^3uL (1.8-7.7) 4.9 x10^3uL (1.8-7.7) Lymphocytes # (Auto) 1.6 x10^3/uL (1.0-4.8) 2.4 x10^3/uL (1.0-4.8) Monocytes # (Auto) 0.6 x10^3/uL (0.0-1.1) 0.7 x10^3/uL (0.0-1.1) Eosinophils # (Auto) 0.4 x10^3/uL (0.0-0.7) 0.5 x10^3/uL (0.0-0.7) Basophils # (Auto) 0.1 x10^3/uL (0.0-0.2) 0.1 x10^3/uL (0.0-0.2) Sodium Level 144 mmol/L (136-145) 141 mmol/L (136-145) Potassium Level 3.4 mmol/L (3.5-5.1) 2.8 mmol/L (3.5-5.1) Chloride Level 105 mmol/L (98-107) 101 mmol/L (98-107) Carbon Dioxide Level 31 mmol/L (21-32) 28 mmol/L (21-32) Anion Gap 8 (6-14) 12 (6-14) Blood Urea Nitrogen 30 mg/dL (7-20) 29 mg/dL (7-20) Creatinine 2.6 mg/dL (0.6-1.0) 2.4 mg/dL (0.6-1.0) Estimated GFR (Cockcroft-Gault) 22.6 24.8 BUN/Creatinine Ratio 12 (6-20) 12 (6-20) Glucose Level 168 mg/dL (70-99) 170 mg/dL (70-99) Lactic Acid Level 0.9 mmol/L (0.4-2.0) Calcium Level 9.8 mg/dL (8.5-10.1) 9.7 mg/dL (8.5-10.1) Magnesium Level 1.8 mg/dL (1.8-2.4) Total Bilirubin 0.3 mg/dL (0.2-1.0) 0.2 mg/dL (0.2-1.0) Aspartate Amino Transf (AST/SGOT) 12 U/L (15-37) 12 U/L (15-37) Alanine Aminotransferase (ALT/SGPT) 15 U/L (14-59) 15 U/L (14-59) Alkaline Phosphatase 100 U/L (46-116) 99 U/L (46-116) Troponin I Quantitative < 0.017 ng/mL (0.000-0.055) JY-Fvb-P-Type Natriuretic Peptide 138 pg/mL (0-124) Total Protein 7.0 g/dL (6.4-8.2) 7.6 g/dL (6.4-8.2) Albumin 2.8 g/dL (3.4-5.0) 3.0 g/dL (3.4-5.0) Albumin/Globulin Ratio 0.7 (1.0-1.7) 0.7 (1.0-1.7) Laboratory Tests Test 07/27/18 16:44 07/27/18 17:11 07/28/18 04:30 Urine Collection Type Unknown Urine Color Yellow Urine Clarity Clear Urine pH 6.0 Urine Specific Cascade 1.015 Urine Protein >=300 mg/dL (NEG-TRACE) Urine Glucose (UA) Negative mg/dL (NEG) Urine Ketones (Stick) Negative mg/dL (NEG) Urine Blood Negative (NEG) Urine Nitrite Negative (NEG) Urine Bilirubin Negative (NEG) Urine Urobilinogen Dipstick 0.2 mg/dL (0.2 mg/dL) Urine Leukocyte Esterase Negative (NEG) Urine RBC Occ /HPF (0-2) Urine WBC Occ /HPF (0-4) Urine Squamous Epithelial Cells Few /LPF Urine Bacteria Few /HPF (0-FEW) Urine Hyaline Casts Occasional /HPF Urine Mucus Slight /LPF White Blood Count 7.1 x10^3/uL (4.0-11.0) 8.6 x10^3/uL (4.0-11.0) Red Blood Count 4.95 x10^6/uL (3.50-5.40) 5.30 x10^6/uL (3.50-5.40) Hemoglobin 12.1 g/dL (12.0-15.5) 13.2 g/dL (12.0-15.5) Hematocrit 38.6 % (36.0-47.0) 41.4 % (36.0-47.0) Mean Corpuscular Volume 78 fL (79-100) 78 fL (79-100) Mean Corpuscular Hemoglobin 25 pg (25-35) 25 pg (25-35) Mean Corpuscular Hemoglobin Concent 31 g/dL (31-37) 32 g/dL (31-37) Red Cell Distribution Width 16.5 % (11.5-14.5) 16.3 % (11.5-14.5) Platelet Count 207 x10^3/uL (140-400) 211 x10^3/uL (140-400) Neutrophils (%) (Auto) 61 % (31-73) 57 % (31-73) Lymphocytes (%) (Auto) 23 % (24-48) 28 % (24-48) Monocytes (%) (Auto) 8 % (0-9) 9 % (0-9) Eosinophils (%) (Auto) 6 % (0-3) 6 % (0-3) Basophils (%) (Auto) 1 % (0-3) 1 % (0-3) Neutrophils # (Auto) 4.3 x10^3uL (1.8-7.7) 4.9 x10^3uL (1.8-7.7) Lymphocytes # (Auto) 1.6 x10^3/uL (1.0-4.8) 2.4 x10^3/uL (1.0-4.8) Monocytes # (Auto) 0.6 x10^3/uL (0.0-1.1) 0.7 x10^3/uL (0.0-1.1) Eosinophils # (Auto) 0.4 x10^3/uL (0.0-0.7) 0.5 x10^3/uL (0.0-0.7) Basophils # (Auto) 0.1 x10^3/uL (0.0-0.2) 0.1 x10^3/uL (0.0-0.2) Sodium Level 144 mmol/L (136-145) 141 mmol/L (136-145) Potassium Level 3.4 mmol/L (3.5-5.1) 2.8 mmol/L (3.5-5.1) Chloride Level 105 mmol/L (98-107) 101 mmol/L (98-107) Carbon Dioxide Level 31 mmol/L (21-32) 28 mmol/L (21-32) Anion Gap 8 (6-14) 12 (6-14) Blood Urea Nitrogen 30 mg/dL (7-20) 29 mg/dL (7-20) Creatinine 2.6 mg/dL (0.6-1.0) 2.4 mg/dL (0.6-1.0) Estimated GFR (Cockcroft-Gault) 22.6 24.8 BUN/Creatinine Ratio 12 (6-20) 12 (6-20) Glucose Level 168 mg/dL (70-99) 170 mg/dL (70-99) Lactic Acid Level 0.9 mmol/L (0.4-2.0) Calcium Level 9.8 mg/dL (8.5-10.1) 9.7 mg/dL (8.5-10.1) Magnesium Level 1.8 mg/dL (1.8-2.4) Total Bilirubin 0.3 mg/dL (0.2-1.0) 0.2 mg/dL (0.2-1.0) Aspartate Amino Transf (AST/SGOT) 12 U/L (15-37) 12 U/L (15-37) Alanine Aminotransferase (ALT/SGPT) 15 U/L (14-59) 15 U/L (14-59) Alkaline Phosphatase 100 U/L (46-116) 99 U/L (46-116) Troponin I Quantitative < 0.017 ng/mL (0.000-0.055) QI-Chi-O-Type Natriuretic Peptide 138 pg/mL (0-124) Total Protein 7.0 g/dL (6.4-8.2) 7.6 g/dL (6.4-8.2) Albumin 2.8 g/dL (3.4-5.0) 3.0 g/dL (3.4-5.0) Albumin/Globulin Ratio 0.7 (1.0-1.7) 0.7 (1.0-1.7) Medications Current Medications Sodium Chloride 500 ml @ 500 mls/hr 1X ONCE IV Last administered on 07/27/18at 20:20; Start 07/27/18 at 20:15; Stop 07/27/18 at 21:14; Status DC Nicotine (Nicoderm Cq 21mg) 1 patch 1X ONCE TD Last administered on 07/27/18at 20:21; Start 07/27/18 at 22:45; Stop 07/27/18 at 22:46; Status DC Albuterol/ Ipratropium (Duoneb) 3 ml RTQID NEB Last administered on 07/28/18at 06:18; Start 07/28/18 at 08:00; Stop 07/29/18 at 07:59 Acetaminophen/ Hydrocodone Bitart (Lortab 7.5/325) 1 tab PRN Q8HRS PRN PO PAIN Last administered on 07/28/18at 01:58; Start 07/28/18 at 01:30 Potassium Chloride (Klor-Con) 20 meq TIDWMEALS PO Last administered on at 07:58; Start 07/28/18 at 08:00 Active Scripts Active Reported Trelegy Ellipta 100-62.5-25 (Fluticasone/Umeclidin/Vilanter) 1 Each Blst.w.dev 1 Each IH BID Losartan-Hctz 100-25 Mg Tab (Losartan/Hydrochlorothiazide) 1 Each Tablet 1 Each PO DAILY Hydralazine Hcl 100 Mg Tablet 100 Mg PO TID Hydrocodone-Apap 7.5-325 (Hydrocodone Bit/Acetaminophen) 1 Tab Tablet 1 Tab PO TID Proventil Hfa Inhaler (Albuterol Sulfate) 6.7 Gm Hfa.aer.ad 1 Puff IH PRN Q4HRS PRN Atenolol 50 Mg Tablet 50 Mg PO TID Albuterol Sulfate Hfa Inhaler (Albuterol Sulfate) 8.5 Gm Hfa.aer.ad 8.5 Gm IH Clonidine Hcl 0.2 Mg Tablet 0.2 Mg PO TID Amlodipine Besylate 10 Mg Tablet 10 Mg PO DAILY Glimepiride 1 Mg Tablet 2 Mg PO BIDWMEALS Vitals/I & O Vital Sign - Last 24 Hours 07/27/18 07/27/18 07/27/18 07/27/18 16:40 17:17 17:47 18:22 Temp 98.3 98.3 Pulse 57 56 54 52 Resp 20 18 23 22 B/P (MAP) 160/89 (112) 158/80 (106) 145/80 (101) 135/87 (103) Pulse Ox 94 93 94 94 O2 Delivery Room Air Room Air Room Air Room Air 07/27/18 07/27/18 07/27/18 07/27/18 19:17 20:17 21:45 23:18 Temp 98.4 98.4 Pulse 58 59 58 Resp 22 23 18 B/P (MAP) 170/87 (114) 161/81 (107) 145/71 (95) Pulse Ox 94 92 96 O2 Delivery Room Air Room Air Room Air Room Air 07/28/18 07/28/18 07/28/18 03:28 06:21 07:00 Temp 98.8 99.0 98.8 99.0 Pulse 65 71 Resp 20 20 B/P (MAP) 154/87 (109) 156/89 (111) Pulse Ox 98 96 100 O2 Delivery Room Air Room Air Room Air Intake and Output 07/27/18 07/27/18 07/28/18 15:00 23:00 07:00 Intake Total 240 ml Output Total 700 ml Balance -460 ml KALPANA MILLIGAN MD Jul 28, 2018 08:58
[2018-07-28] MEDS ORDERED: NON FORMULARY ITEM (Losartan/Hydrochlorothiazide (Losartan-Hctz 100-25 Mg Tab) 1 EACH) PO SCH (09:00)
[2018-07-28] MEDS ORDERED: NON FORMULARY ITEM (Fluticasone/Umeclidin/Vilanter (Trelegy Ellipta 100-62.5-25) 1 EACH) IH SCH (09:00)
[2018-07-28 09:01] LABS: CHOLESTEROL/HDL RATIO 6.6
[2018-07-28] MEDS ORDERED: hydroCHLOROthiazide 25 MG TABLET PO SCH (09:30)
[2018-07-28] MEDS ORDERED: LOSARTAN POTASSIUM 50 MG TABLET. PO SCH (09:30)
[2018-07-28] MEDS ORDERED: amLODIPine BESYLATE 10 MG TABLET PO SCH (09:30)
[2018-07-28] MEDS: GLIMEPIRIDE 2 MG TABLET. PO SCH ×2 (09:58→16:50)
--- NOTE | 2018-07-28 09:59 | SSS ---
ADMIT DATE: 23-HOUR SUMMARY, THIS IS A COMBINED HISTORY AND PHYSICAL AND DISCHARGE SUMMARY. DATE OF DISCHARGE: 07/28/2018. CHIEF COMPLAINT: Cough and shortness of breath. HISTORY OF PRESENT ILLNESS: The patient is a 63-year-old female with a history of asthma and ongoing tobacco use, who was seen in our office by Dr. Salvador on 07/23/2018 with the above complaints. At that time, he felt that she had a viral bronchitis with an exacerbation of her asthma. He started treatment with a Z-BRITTANIE and a prednisone taper and also ordered a chest x-ray. The patient had been taking the medications as prescribed and reports that her symptoms were much improved. She was contacted by our office yesterday when the chest x-ray report was received and appeared to show diffuse interstitial infiltrates. She was advised to present to the Emergency Room, which she did. Evaluation in the Emergency Room showed that she was not hypoxic on room air. A repeat chest x-ray was clear. The patient then reported that she did have some intermittent chest pain and so she was admitted for further care. PAST MEDICAL HISTORY: Hypertension, diabetes mellitus type 2, chronic kidney disease stage 3, asthma, chronic pain. PAST SURGICAL HISTORY: Hernia surgery, x 3, carpal tunnel, abdominal surgery for a ruptured diverticulum. ALLERGIES: The patient has no known drug allergies. HOME MEDICATIONS: Albuterol p.r.n., amlodipine 10 mg daily, atenolol 50 mg t.i.d., clonidine 0.2 mg t.i.d. Trelegy Ellipta inhaler 1 puff b.i.d., glimepiride 2 mg b.i.d., hydralazine 100 mg t.i.d., hydrocodone 7.5/325 p.r.n. pain (this is from a pain clinic, not from our office), Losartan/hydrochlorothiazide 100/25 one daily. FAMILY HISTORY: Noncontributory. SOCIAL HISTORY: The patient is single and lives at home with family members. She continues to smoke cigarettes about 1 pack daily. She does not drink alcohol to excess. REVIEW OF SYSTEMS: The patient has not had fever or chills. She reports that her wheezing and coughing had improved over the weekend with taking the medications that Dr. Salvador had prescribed. She has also been using her new inhaler and feels that this is helping. She reports some intermittent chest pain, but no recent episodes of this. She especially notices the chest pain when she is short of breath with walking or other exertion. The patient used to see Dr. Gill for her cardiac care and has not seen another genetic scientist since he left our hospital. She has some intermittent abdominal pain and some chronic constipation. Dr. Salvador started her on Amitiza for treatment of this at her office visit, but she has not started taking this yet. She denies any abdominal pain today. She has some intermittent lower extremity edema and is supposed to be obtaining MARILEE hose to use to help this. PHYSICAL EXAMINATION: GENERAL: The patient is alert and oriented x 3, resting comfortably in bed in no acute distress. HEENT: PERRL, EOMI, sclerae clear. Oropharynx: Mucous membranes moist. The patient is edentulous. NECK: Supple, without lymphadenopathy. CHEST: Breath sounds are moderately decreased throughout, but otherwise clear to auscultation. No wheezes heard. No cough during exam. CARDIOVASCULAR: Regular rhythm. ABDOMEN: Soft, nontender, normoactive bowel sounds are present. Bilateral lower extremities are without edema. HOSPITAL COURSE: The patient has been monitored on telemetry overnight and has remained in sinus rhythm. She is afebrile with stable vital signs. She continues without hypoxia on room air. She has not had any chest pain or palpitations since her admission. She does not have any abdominal pain and is asking for a second breakfast as she is still hungry after eating what was on her tray. Her renal function is actually mildly improved on lab with a creatinine decreased to 2.4 this morning after receiving a fluid bolus last evening. Her potassium has dropped to 2.8, but this will be replaced orally. The patient states that she feels fine and is ready to return home today. Cardiology was consulted and an Echocardiogram was done. This showed a preserved EF of 55-60% with mild diastolic dysfunction. Troponin was negative. Cardiology recommended that patient start Aspirin 81mg daily so this was added to her discharge medications. She is to follow up with Dr Junior in one month. The patient has a history of chronic kidney disease stage 3. This did appear to have worsened on her last lab in our office, and Dr. Salvador has referred her to Nephrology for further treatment of this. The patient is advised to follow up there as soon as she is scheduled. FINAL DIAGNOSES: 1. Acute exacerbation of asthma with viral bronchitis. 2. Diastolic congestive heart failure with stable angina. 3. Chronic kidney disease stage 3. 4. Hypertension. 5. Diabetes mellitus type 2. DISCHARGE MEDICATIONS: Remain the same as at admission. The patient is advised to complete the prednisone taper which Dr. Salvador had started her on last week. Followup is with Dr. Salvador as needed. Follow up at Nephrology as advised. Follow up with Cardiology in one month as scheduled. KALPANA MILLIGAN MD DR: LANI/kat JOB#: [id number] / [id number] ERIC
[2018-07-28] MEDS: cloNIDine HCL 0.2 MG TABLET PO SCH ×2 (10:01→13:56)
[2018-07-28] MEDS: ATENOLOL 50 MG TABLET. PO SCH ×2 (10:01→13:57)
--- NOTE | 2018-07-28 10:03 | PDOC2 ---
CARDIAC CONSULT DATE OF CONSULT Date of Consult DATE: 07/28/18 TIME: 09:52 REASON FOR CONSULT Reason for Consult: Shortness of breath Chest pain REFERRING PHYSICIAN Referring Physician: Mirella Benítez APRN SOURCE Source: Chart review, Patient HISTORY OF PRESENT ILLNESS HISTORY OF PRESENT ILLNESS This is a 63 yo female who presented secondary to abnormal CXR that was conducted this past Thursday. Patient saw Dr. Salvador in clinic 07/23/18. Complained of cough productive of green sputum over the last couple of weeks. CXR and routine labs were ordered. Treated with Z-pack and Prednisone taper. Patient reports compliance with these. Was recommend to come to the ED for further evaulation and treatment yesterday and CXR was notable for some diffuse infiltrate. CXR upon arrival was clear. Patient reports shortness of breath has resolved and is wanting to go home today. Patient does report history of intermittent chest pain for the last couple of months. Generally occurs with coughing or with exertional activities. Located in her central chest. Describes as stabbing in nature. Resolves after about 5 minutes of rubbing her chest. Also reports chronic exertional dyspnea over the last 3 years. No worse that usual recently. Has long-standing history of tobacco use.Previously followed with Dr. Gill. Last heart cath > 15 years ago. Stress test in 2017 without any evidence of ischemia or infarct. Patient will establish care with Dr. Junior. PAST MEDICAL HISTORY Cardiovascular: HTN, Hyperlipidemia Pulmonary: Asthma, COPD, Other (VENUS) CENTRAL NERVOUS SYSTEM: Other (no pertinent hx) GI: Diverticulosis, GERD, GI bleed, Irritable bowel disease Heme/Onc: No pertinent hx Hepatobiliary: Hep A/B/C (B) Psych: Anxiety, Depression Musculoskeletal: Osteoarthritis Infectious disease: No pertinent hx ENT: No pertinent hx Renal/: Chronic renal insuff Endocrine: Diabetes Dermatology: No pertinent hx PAST SURGICAL HISTORY Past Surgical History: Hernia Repair FAMILY HISTORY Family History: Diabetes, High Cholestrol, Hypertension SOCIAL HISTORY Smoke: 1 pack per day ALCOHOL: none Drugs: None Lives: with Family CURRENT MEDICATIONS CURRENT MEDICATIONS Current Medications Medications (Trade) Dose Ordered Sig/Howard Route PRN Reason Start Time Stop Time Status Last Admin Dose Admin Sodium Chloride 500 ml @ 500 mls/hr 1X ONCE IV 07/27/18 20:15 07/27/18 21:14 DC 07/27/18 20:20 Nicotine (Nicoderm Cq 21mg) 1 patch 1X ONCE TD 07/27/18 22:45 07/27/18 22:46 DC 07/27/18 20:21 Albuterol/ Ipratropium (Duoneb) 3 ml RTQID NEB 07/28/18 08:00 07/28/18 08:56 DC 07/28/18 06:18 Acetaminophen/ Hydrocodone Bitart (Lortab 7.5/325) 1 tab PRN Q8HRS PRN PO PAIN 07/28/18 01:30 07/28/18 01:58 Potassium Chloride (Klor-Con) 20 meq TIDWMEALS PO 07/28/18 08:00 07/28/18 07:58 ALLERGIES ALLERGIES: Coded Allergies: No Known Drug Allergies (Unverified , 07/27/18) ROS Review of System 14 point ROS conducted with pertinent positives noted above in HPI. PHYSICAL EXAM General: Alert, No acute distress HEENT: Atraumatic Lungs: Clear to auscultation, Other (diminished bases) Heart: Regular rate, Other (2/6 systolic murmur ) Abdomen: No tenderness Extremities: No edema, Normal pulses Skin: No breakdown, No significant lesion Neuro: Normal speech, Sensation intact Psych/Mental Status: Mental status NL, Mood NL MUSCULOSKELETAL: Osteoarthritic changes both hands VITALS VITALS Vital Signs Date Time Temp Pulse Resp B/P (MAP) Pulse Ox O2 Delivery O2 Flow Rate FiO2 07/28/18 08:00 Room Air 07/28/18 07:00 99.0 71 20 156/89 (111) 100 99.0 LABS Lab: Laboratory Tests Test 07/27/18 16:44 07/27/18 17:11 07/28/18 04:30 Urine Collection Type Unknown Urine Color Yellow Urine Clarity Clear Urine pH 6.0 Urine Specific [place] 1.015 Urine Protein >=300 mg/dL (NEG-TRACE) Urine Glucose (UA) Negative mg/dL (NEG) Urine Ketones (Stick) Negative mg/dL (NEG) Urine Blood Negative (NEG) Urine Nitrite Negative (NEG) Urine Bilirubin Negative (NEG) Urine Urobilinogen Dipstick 0.2 mg/dL (0.2 mg/dL) Urine Leukocyte Esterase Negative (NEG) Urine RBC Occ /HPF (0-2) Urine WBC Occ /HPF (0-4) Urine Squamous Epithelial Cells Few /LPF Urine Bacteria Few /HPF (0-FEW) Urine Hyaline Casts Occasional /HPF Urine Mucus Slight /LPF White Blood Count 7.1 x10^3/uL (4.0-11.0) 8.6 x10^3/uL (4.0-11.0) Red Blood Count 4.95 x10^6/uL (3.50-5.40) 5.30 x10^6/uL (3.50-5.40) Hemoglobin 12.1 g/dL (12.0-15.5) 13.2 g/dL (12.0-15.5) Hematocrit 38.6 % (36.0-47.0) 41.4 % (36.0-47.0) Mean Corpuscular Volume 78 fL (79-100) 78 fL (79-100) Mean Corpuscular Hemoglobin 25 pg (25-35) 25 pg (25-35) Mean Corpuscular Hemoglobin Concent 31 g/dL (31-37) 32 g/dL (31-37) Red Cell Distribution Width 16.5 % (11.5-14.5) 16.3 % (11.5-14.5) Platelet Count 207 x10^3/uL (140-400) 211 x10^3/uL (140-400) Neutrophils (%) (Auto) 61 % (31-73) 57 % (31-73) Lymphocytes (%) (Auto) 23 % (24-48) 28 % (24-48) Monocytes (%) (Auto) 8 % (0-9) 9 % (0-9) Eosinophils (%) (Auto) 6 % (0-3) 6 % (0-3) Basophils (%) (Auto) 1 % (0-3) 1 % (0-3) Neutrophils # (Auto) 4.3 x10^3uL (1.8-7.7) 4.9 x10^3uL (1.8-7.7) Lymphocytes # (Auto) 1.6 x10^3/uL (1.0-4.8) 2.4 x10^3/uL (1.0-4.8) Monocytes # (Auto) 0.6 x10^3/uL (0.0-1.1) 0.7 x10^3/uL (0.0-1.1) Eosinophils # (Auto) 0.4 x10^3/uL (0.0-0.7) 0.5 x10^3/uL (0.0-0.7) Basophils # (Auto) 0.1 x10^3/uL (0.0-0.2) 0.1 x10^3/uL (0.0-0.2) Sodium Level 144 mmol/L (136-145) 141 mmol/L (136-145) Potassium Level 3.4 mmol/L (3.5-5.1) 2.8 mmol/L (3.5-5.1) Chloride Level 105 mmol/L (98-107) 101 mmol/L (98-107) Carbon Dioxide Level 31 mmol/L (21-32) 28 mmol/L (21-32) Anion Gap 8 (6-14) 12 (6-14) Blood Urea Nitrogen 30 mg/dL (7-20) 29 mg/dL (7-20) Creatinine 2.6 mg/dL (0.6-1.0) 2.4 mg/dL (0.6-1.0) Estimated GFR (Cockcroft-Gault) 22.6 24.8 BUN/Creatinine Ratio 12 (6-20) 12 (6-20) Glucose Level 168 mg/dL (70-99) 170 mg/dL (70-99) Lactic Acid Level 0.9 mmol/L (0.4-2.0) Calcium Level 9.8 mg/dL (8.5-10.1) 9.7 mg/dL (8.5-10.1) Magnesium Level 1.8 mg/dL (1.8-2.4) Total Bilirubin 0.3 mg/dL (0.2-1.0) 0.2 mg/dL (0.2-1.0) Aspartate Amino Transf (AST/SGOT) 12 U/L (15-37) 12 U/L (15-37) Alanine Aminotransferase (ALT/SGPT) 15 U/L (14-59) 15 U/L (14-59) Alkaline Phosphatase 100 U/L (46-116) 99 U/L (46-116) Troponin I Quantitative < 0.017 ng/mL (0.000-0.055) < 0.017 ng/mL (0.000-0.055) IM-Nlr-Y-Type Natriuretic Peptide 138 pg/mL (0-124) Total Protein 7.0 g/dL (6.4-8.2) 7.6 g/dL (6.4-8.2) Albumin 2.8 g/dL (3.4-5.0) 3.0 g/dL (3.4-5.0) Albumin/Globulin Ratio 0.7 (1.0-1.7) 0.7 (1.0-1.7) Triglycerides Level 240 mg/dL (0-150) Cholesterol Level 204 mg/dL (0-200) LDL Cholesterol, Calculated 125 mg/dL (0-100) VLDL Cholesterol, Calculated 48 mg/dL (0-40) Non-HDL Cholesterol Calculated 173 mg/dL (0-129) HDL Cholesterol 31 mg/dL (40-60) Cholesterol/HDL Ratio 6.6 Thyroid Stimulating Hormone (TSH) 0.788 uIU/mL (0.358-3.74) ECHOCARDIOGRAM ECHOCARDIOGRAM <Conclusion> There is mild asymmetric septal hypertrophy. The left ventricular systolic function is normal and the ejection fraction is within normal range. The Ejection Fraction is 60%. Transmitral Doppler flow pattern is Grade I-abnormal relaxation pattern. The left atrium is mildly dilated. The right atrium size is normal. The aortic valve is moderately thickened but opens well. The mitral valve is calcified but opens well. Doppler and Color-flow revealed mild mitral regurgitation. Doppler and Color Flow revealed physiological tricuspid regurgitation. There is mild pulmonary hypertension. The PA pressure was estimated at 36 mmHg. The pulmonic valve is not well visualized. Doppler and Color Flow revealed mild pulmonic valvular regurgitation. There is a small circumferential pericardial effusion. DATE: 02/24/18 1719 STRESS TEST STRESS TEST Conclusion 1. No evidence of EKG changes with stress. 2. Normal perfusion at stress. 3. Normal EF at > 65% 4. Low risk study DATE: 02/24/17 1314 ASSESSMENT/PLAN ASSESSMENT/PLAN 1. Chest pain, atypical. trop series negative- AMI ruled out. Echo 02/2018 with preserved LV systolic function 2. Hypertension; mildly elevated. Home medications have been resumed 3. Dyslipidemia; LDL 125. Not on statin 4. Diabetes, II 5. JONO on CKD; to establish care with claims customer service representative on outpatient basis 6. Bronchitis 7. COPD with continued tobaccoism. 8. Hypokalemia; replaced Recommendations Add EC ASA, statin Discussed/encouraged cessation Outpatient ischemic workup Follow up with Dr. Junior in 1 month as scheduled RONNELL PEREZ APRN Jul 28, 2018 10:03
--- NOTE | 2018-07-28 10:28 | CARD ---
MR#: [id number] Date of Study: 07/28/2018 Ordering Physician: TODD RAI, Referring Physician: RICKY PORTILLO Tech: Adelaide Farah RDCS APPROVED REPORT EXAM: Two-dimensional and M-mode echocardiogram with Doppler and color Doppler. Other Information Quality : Good INDICATION Chest Pain 2D DIMENSIONS RVDd3.3 (2.9-3.5cm)Left Atrium(2D)4.0 (1.6-4.0cm) IVSd1.6 (0.7-1.1cm)Aortic Root(2D)3.0 (2.0-3.7cm) LVDd4.8 (3.9-5.9cm)LVOT Diameter2.1 (1.8-2.4cm) PWd1.2 (0.7-1.1cm)LVDs2.5 (2.5-4.0cm) FS (%) 30.0 %SV86.3 ml LVEF(%)60.0 (>50%) Aortic Valve AoV Peak Americo.172.7cm/sAoV VTI36.3cm AO Peak GR.11.9mmHgLVOT Peak Americo.121.0cm/s LVOT VTI 30.42cmAO Mean GR.6mmHg ESTHER (VMAX)2.20fk7YRI (VTI)2.98cm2 Mitral Valve MV E Jisthhrb95.8cm/sMV DECEL BJAT405ht MV A Tzortkuh013.2cm/sMV [id number] E/A Ratio0.4MVA (PHT)1.94cm2 TDI E/Lateral E'11.8E/Medial E'14.8 Pulmonary Vein S1 Ulgpyygx44.4cm/sD2 Zsptmtga10.9cm/s LEFT VENTRICLE The left ventricle is normal size. There is mild to moderate concentric left ventricular hypertrophy. The left ventricular systolic function is normal. The Ejection Fraction is 55-60%. There is normal L V segmental wall motion. Transmitral Doppler flow pattern is Grade I-abnormal relaxation pattern. RIGHT VENTRICLE The right ventricle is normal size. The right ventricular systolic function is normal. ATRIA The left atrium is mildly dilated. The right atrium size is normal. The interatrial septum is intact with no evidence for an atrial septal defect or patent foramen ovale as noted on 2-D or Doppler imagi ng. AORTIC VALVE The aortic valve is calcified but opens well. Doppler and Color Flow revealed no significant aortic r egurgitation. There is no significant aortic valvular stenosis. MITRAL VALVE The mitral valve is calcified but opens well. There is no evidence of mitral valve prolapse. There is no mitral valve stenosis. Doppler and Color-flow revealed trace mitral regurgitation. TRICUSPID VALVE The tricuspid valve is normal in structure and function. Doppler and Color Flow revealed trace tricus pid regurgitation. There is no tricuspid valve stenosis. PULMONIC VALVE The pulmonic valve is not well visualized. Doppler and Color Flow revealed no pulmonic valvular regur gitation. There is no pulmonic valvular stenosis. GREAT VESSELS The aortic root is normal in size. The ascending aorta is moderately dilated at 3.8 cm. The IVC is no rmal in size and collapses >50% with inspiration. PERICARDIAL EFFUSION There is no evidence of significant pericardial effusion. Critical Notification Critical Value: No <Conclusion> The left ventricular systolic function is normal. The Ejection Fraction is 55-60%. There is normal LV segmental wall motion. Transmitral Doppler flow pattern is Grade I-abnormal relaxation pattern. Trace mitral regurgitation. Trace tricuspid regurgitation. There is no evidence of significant pericardial effusion. Signed by : Edouard Sotomayor, Electronically Approved : 07/28/2018 10:27:54
[2018-07-28 11:00] VITALS: BP 176/95
[2018-07-28] MEDS: BUDESONIDE 0.5 MG/2 ML NEBU. NEB SCH ×2 (11:54→20:00)
[2018-07-28] MEDS: ALBUTEROL SULFATE 2.5 MG/3 ML NEBU. NEB SCH ×3 (11:54→20:00)
[2018-07-28] MEDS ORDERED: NICOTINE 21MG PATCH. TD PRN (13:00)
[2018-07-28 15:00] VITALS: BP 146/82
[2018-07-28 19:56] VITALS: BP 146/88
[2018-07-28] MEDS ORDERED: ASPI-612 PO (20:03)
--- NOTE | 2018-07-28 20:40 | NUR ---
Discharge Note: HERRERA BERKOWITZ [address] [place] [address] Discharge instructions and discharge home medications reviewed with Patient and a copy given. All questions have been answered and understanding verbalized. The following instructions and handouts were given: f/u cardiology and pcp Discontinued lines and drains: Peripheral IV intact. Patient discharged to Home or Self Care with Family Member via Wheelchair
[2018-07-28] MEDS ORDERED: ATORVASTATIN CALCIUM 40 MG TABLET. PO SCH (21:00)
[2018-07-29] MEDS ORDERED: ASPIRIN ENTERIC COATED 81 MG TABLET.DR. PO SCH (08:00)
[2018-07-29] MEDS ORDERED: ATENOLOL 50 MG TABLET. PO SCH (09:00)
== END 2018-07-28 20:58 | disposition home or self-care (01) | DRG 202 ==
LOC: ER 16:10 → 6 SOUTH 19:40
PROVIDERS: ADMIT Family Medicine; ATTEND Family Medicine
DX: J45.901 Unspecified asthma with (acute) exacerbation (principal); J44.0 Chronic obstructive pulmonary disease with (acute) lower respiratory infection; N17.9 Acute kidney failure, unspecified; I50.30 Unspecified diastolic (congestive) heart failure; I13.0 Hypertensive heart and chronic kidney disease with heart failure and stage 1 through stage 4 chronic kidney disease, or unspecified chronic kidney disease; J20.9 Acute bronchitis, unspecified; R07.89 Other chest pain; E87.6 Hypokalemia; I20.8 Other forms of angina pectoris; M19.90 Unspecified osteoarthritis, unspecified site; G89.29 Other chronic pain; F41.9 Anxiety disorder, unspecified; F32.9 Major depressive disorder, single episode, unspecified; K21.9 Gastro-esophageal reflux disease without esophagitis; N18.3 Chronic kidney disease, stage 3 (moderate); E11.22 Type 2 diabetes mellitus with diabetic chronic kidney disease; F17.210 Nicotine dependence, cigarettes, uncomplicated; E78.5 Hyperlipidemia, unspecified; G47.33 Obstructive sleep apnea (adult) (pediatric); K58.1 Irritable bowel syndrome with constipation; Z83.3 Family history of diabetes mellitus; Z82.49 Family history of ischemic heart disease and other diseases of the circulatory system; J44.9 Chronic obstructive pulmonary disease, unspecified
CPT/HCPCS: 36415; 71046; 74021; 80053; 80061; 81001; 82962; 83605; 83735; 83880; 84443; 84484; 85025; 93005; 93306; 94640; 94760; 96360; 99406; J7040; J7613; J7620; J7626; 99285-25

== ENCOUNTER → 2018-08-12 | Outpatient (CLI) | payer OTHER ==
[2018-07-28 19:56] VITALS: BP 146/88
[~2018-08-12] MED LIST changes: +ALPR0.5T6 PO; +ASPI-612 PO; +FLUT1BLS3 IH; +LOSA1TAB22 PO
[2018-08-12 15:25] LABS: HEMATOCRIT 40.4 % (36.0-47.0)
[2018-08-12 15:32] LABS: BILIRUBIN,URINE NEGATIVE (NEG); CLARITY,URINE CLEAR; COLOR,URINE YELLOW; NITRITE,URINE NEGATIVE (NEG); PH,URINE 5.5; PROTEIN,URINE >=300 mg/dL (NEG-TRACE); UROBILINOGEN,URINE 0.2 mg/dL (0.2 mg/dL)
[2018-08-12 15:48] LABS: BACTERIA,URINE MANY /HPF (0-FEW); RBC,URINE 0 /HPF (0-2); SQUAMOUS EPITHELIAL CELL,UR MANY /LPF
[2018-08-12 15:55] LABS: CALCIUM 9.9 mg/dL (8.5-10.1); CREATININE 3.2 mg/dL (0.6-1.0); CREATININE,RANDOM URINE 139.8 mg/dL (Not Establ.); GFR 17.8; POTASSIUM 3.1 mmol/L (3.5-5.1)
[2018-08-12 23:12] LABS: CREAT RD UR 127.2 mg/dL (Not Estab.); MICRO CREAT RATIO 1166.4 mg/g creat (0.0-30.0); MICROALB RD UR 1483.7 ug/mL (Not Estab.)
[2018-08-13 00:08] LABS: CALCIUM PTH 9.4 mg/dL (8.7-10.3); CREATININE PTH 3.07 mg/dL (0.57-1.00); PHOSPHORUS PTH 3.7 mg/dL (2.5-4.5); PTH INTACT 457 pg/mL (15-65)
== END | disposition home or self-care (01) ==
LOC: LAB 14:51
PROVIDERS: ATTEND Internal Medicine Nephrology
DX: N17.9 Acute kidney failure, unspecified (principal)
CPT/HCPCS: 36415; 80069; 81001; 82043; 82306; 82570; 83970; 84156; 85014; 85018; 87086

== ENCOUNTER → 2018-10-04 | Outpatient (CLI) | payer MEDICAID ==
[~2018-10-04] MED LIST changes: -PANT40TA3 PO; +PANT40TA77 PO
--- NOTE | 2018-10-04 16:14 | RAD ---
Examination: CT CHEST WO CONTRAST History: Smoker screening. 45 year smoking history one half pack per day Comparison/Correlation: None Findings: Axial images of the chest were obtained without contrast. Sagittal and coronal reformatted images were provided. Exam was performed according to low-dose lung cancer screening CT protocol. Right hilar calcified lymph nodes are present. No enlarged hilar lymph nodes. No enlarged mediastinal or axillary lymph nodes. Main pulmonary arterial diameter of 4.5 cm is present. Small pericardial effusion which is loculated primarily about the right heart and ventricular apex is noted. Calcified granulomas are present involving the lung edwards. Coronary arterial calcifications are present. Bilobed nodule or possibly 2 separate adjacent nodules measuring up to 0.5 cm maximum diameter is present on axial image 32 at the mid thoracic level within the left lower lobe. Midline upper abdominal wall scar is noted. Diverticulosis is present involving the colon. Impression: Lungs rads category 2-benign. Annual low-dose lung cancer screening CT recommended. Small loculated pericardial effusion. PQRS Compliance Statement: One or more of the following individualized dose reduction techniques were utilized for this examination: 1. Automated exposure control 2. Adjustment of the mA and/or kV according to patient size 3. Use of iterative reconstruction technique Electronically signed by: Zhang Deal MD (10/04/2018 4:12 PM) [id number]
== END | disposition home or self-care (01) ==
LOC: CT 14:22
PROVIDERS: ATTEND Internal Medicine Pulmonary Disease
DX: I31.3 Pericardial effusion (noninflammatory) (principal); J84.10 Pulmonary fibrosis, unspecified; I25.10 Atherosclerotic heart disease of native coronary artery without angina pectoris; K57.30 Diverticulosis of large intestine without perforation or abscess without bleeding; F17.210 Nicotine dependence, cigarettes, uncomplicated
CPT/HCPCS: 71250

== ENCOUNTER → 2018-10-19 | Outpatient (CLI) | payer MEDICAID ==
[2018-10-19 10:15] LABS: BILIRUBIN,URINE NEGATIVE (NEG); CLARITY,URINE CLEAR; COLOR,URINE YELLOW; HEMATOCRIT 41.8 % (36.0-47.0); HEMOGLOBIN 13.5 g/dL (12.0-15.5); NITRITE,URINE NEGATIVE (NEG); PROTEIN,URINE >=300 mg/dL (NEG-TRACE); UROBILINOGEN,URINE 0.2 mg/dL (0.2 mg/dL)
[2018-10-19 10:24] LABS: ALBUMIN 2.9 g/dL (3.4-5.0); CALCIUM 10.1 mg/dL (8.5-10.1); CREATININE 2.7 mg/dL (0.6-1.0); GFR 21.6; POTASSIUM 3.3 mmol/L (3.5-5.1)
[2018-10-19 10:30] LABS: BACTERIA,URINE FEW /HPF (0-FEW); RBC,URINE 0 /HPF (0-2); SQUAMOUS EPITHELIAL CELL,UR FEW /LPF
[2018-10-19 12:34] LABS: CREATININE,RANDOM URINE 52.3 mg/dL (Not Establ.)
[2018-10-20 06:10] LABS: CALCIUM PTH 9.8 mg/dL (8.7-10.3); CREATININE PTH 2.59 mg/dL (0.57-1.00); PHOSPHORUS PTH 4.1 mg/dL (2.5-4.5); PTH INTACT 492 pg/mL (15-65)
[2018-10-20 09:11] LABS: CREAT RD UR 45.8 mg/dL (Not Estab.); MICRO CREAT RATIO 4794.8 mg/g creat (0.0-30.0)
== END | disposition home or self-care (01) ==
LOC: LAB 09:30
PROVIDERS: ATTEND Family Medicine
DX: N17.9 Acute kidney failure, unspecified (principal)
CPT/HCPCS: 36415; 80069; 81001; 82043; 82306; 82570; 83970; 84156; 85014; 85018

== ENCOUNTER → 2018-11-04 | Outpatient (CLI) | payer MEDICAID ==
[2018-11-04 16:28] LABS: HEMOGLOBIN 12.9 g/dL (12.0-15.5)
[2018-11-04 16:29] LABS: HEMATOCRIT 39.7 % (36.0-47.0)
--- NOTE | 2018-11-04 16:40 | RAD ---
Indication: Chronic kidney disease stage IV TECHNIQUE: Grayscale, color Doppler and spectral waveform images of the bilateral kidneys and bladder COMPARISON: Ultrasound from 02/24/2018 FINDINGS: The right kidney measures 11.1 x 5.2 x 5.2 cm without hydronephrosis. 1.0 x 1.2 x 1.0 cm predominantly anechoic lesion is seen in the inferior pole of the right kidney with internal low-level echoes without vascularity most likely minimally corticated cyst. IVC is within normal limits. No aortic aneurysm. Bladder within normal limits. Visualization of bilateral ureteral jets. Left kidney measures 11.5 x 5.3 x 4.5 cm without hydronephrosis. Hypoechoic exophytic 1.2 x 1.3 x 1.3 cm nonvascular lesion is seen in the interpolar left kidney most likely a cyst. 1.8 x 1.7 x 1.7 cm hypoechoic lesion in the interpolar left kidney with mural thickening without vascularity. IMPRESSION: 1. Most likely Bilateral simple to minimally complicated cysts. Follow-up renal ultrasound in 3-4 months recommended. Electronically signed by: Mk Browning DO (11/04/2018 4:37 PM) [facility]
[2018-11-04 16:44] LABS: ALBUMIN 2.8 g/dL (3.4-5.0); CALCIUM 9.6 mg/dL (8.5-10.1); CREATININE 2.7 mg/dL (0.6-1.0); GFR 21.6; PHOSPHORUS 3.4 mg/dL (2.6-4.7); POTASSIUM 3.4 mmol/L (3.5-5.1)
[2018-11-04 17:11] LABS: BILIRUBIN,URINE NEGATIVE (NEG); CLARITY,URINE CLEAR; COLOR,URINE YELLOW; NITRITE,URINE NEGATIVE (NEG); PROTEIN,URINE >=300 mg/dL (NEG-TRACE); RBC,URINE 0 /HPF (0-2); SQUAMOUS EPITHELIAL CELL,UR OCC /LPF; UROBILINOGEN,URINE 0.2 mg/dL (0.2 mg/dL); WBC,URINE OCC /HPF (0-4)
[2018-11-04 17:12] LABS: BACTERIA,URINE FEW /HPF (0-FEW)
[2018-11-05 09:13] LABS: TOTAL SERUM CREATININE 2.68 mg/dL (0.57-1.00); TOTAL URINE CREATININE 43.7 mg/dL (Not Estab.)
[2018-11-05 10:12] LABS: CALCIUM PTH 9.5 mg/dL (8.7-10.3); PHOSPHORUS PTH 3.4 mg/dL (2.5-4.5); PTH INTACT 462 pg/mL (15-65)
[2018-11-05 13:11] LABS: UR PROTEIN 255.7 mg/dL (Not Estab.)
[2018-11-05 14:10] LABS: C3 COMPLEMENT 182 mg/dL (82-167); C4 COMPLEMENT 56 mg/dL (14-44); KAPPA FREE 104.2 mg/L (3.3-19.4); KAPPA LAMBDA RATIO 0.88 (0.26-1.65); LAMBDA FREE 118.4 mg/L (5.7-26.3)
[2018-11-08 17:14] LABS: ANA INTERP Negative (.)
[2018-11-08 18:09] LABS: ALBUMIN RAND UR 63.1 % (.); ALPHA 1 0.3 g/dL (0.0-0.4); ALPHA 1 RAND UR 7.6 % (.); ALPHA 2 0.8 g/dL (0.4-1.0); ALPHA 2 RAND UR 5.6 % (.); BETA 1.6 g/dL (0.7-1.3); BETA RAND UR 14.1 % (.); GAMMA 0.9 g/dL (0.4-1.8); GAMMA RAND UR 9.5 % (.); PROTEIN TOTAL 6.5 g/dL (6.0-8.5); PROTEIN UR RAND 336.8 mg/dL (Not Estab.); SPEP AG RATIO 0.9 (0.7-1.7)
== END | disposition home or self-care (01) ==
LOC: US 15:20
PROVIDERS: ATTEND Nurse Practitioner Adult Health
DX: N17.9 Acute kidney failure, unspecified (principal); E11.21 Type 2 diabetes mellitus with diabetic nephropathy; E11.22 Type 2 diabetes mellitus with diabetic chronic kidney disease; I12.9 Hypertensive chronic kidney disease with stage 1 through stage 4 chronic kidney disease, or unspecified chronic kidney disease; N18.4 Chronic kidney disease, stage 4 (severe); N28.89 Other specified disorders of kidney and ureter; Z68.38 Body mass index [BMI] 38.0-38.9, adult
CPT/HCPCS: 36415; 76770; 80069; 81001; 82575; 82728; 83520; 83540; 83550; 83970; 84156; 84165; 84166; 85014; 85018; 86021; 86038; 86160; 86162; 86705; 86709; 86803; 87340

== ENCOUNTER → 2019-07-07 | Outpatient (CLI) | payer MEDICAID ==
[~2019-07-07] MED LIST changes: -ALBU2.5V8 IH; -CITA20SO PO; +CITA20SO2 PO; -GLIM1TAB2 PO; +GLIM1TAB7 PO; -NITR0.4T SL; +NITR0.4T24 SL; +PROVENTIL HFA6.7 GM IH
--- NOTE | 2019-07-07 13:17 | CARD ---
MR#: [id number] Date of Study: 07/07/2019 Ordering Physician: VINCE FIRAS, Referring Physician: VINCE FRIAS, Tech: Adelaide Farah [facility] APPROVED REPORT EXAM: Two-dimensional and M-mode echocardiogram with Doppler and color Doppler. Other Information Quality : Fair Technically limited study due to body habitus. INDICATION Diastolic Heart Failure RISK FACTORS Obesity 2D DIMENSIONS RVDd3.6 (2.9-3.5cm)Left Atrium(2D)4.0 (1.6-4.0cm) IVSd1.7 (0.7-1.1cm)Aortic Root(2D)2.9 (2.0-3.7cm) LVDd4.4 (3.9-5.9cm)LVOT Diameter2.0 (1.8-2.4cm) PWd1.2 (0.7-1.1cm)LVDs2.2 (2.5-4.0cm) FS (%) 30.0 %SV71.1 ml LVEF(%)60.0 (>50%) Aortic Valve AoV Peak Americo.130.8cm/sAoV VTI28.5cm AO Peak GR.6.8mmHgLVOT Peak Americo.98.3cm/s LVOT VTI 22.70cmAO Mean GR.4mmHg ESTHER (VMAX)2.15um1GXQ (VTI)2.42cm2 Mitral Valve MV E Kujiadyr43.6cm/sMV DECEL TIME628or MV A Wgsnvhac954.5cm/sMV XZN97di E/A Ratio0.5MVA (PHT)3.27cm2 TDI E/Lateral E'14.0E/Medial E'18.6 Tricuspid Valve TR P. Jxgaevwd561pt/sRAP QCDOLNBY1haKg TR Peak Gr.24znTiPCPP62piEq Pulmonary Vein S1 Vghiwibq48.2cm/sD2 Xfhzvdul83.2cm/s LEFT VENTRICLE The left ventricle is normal size. There is mild to moderate concentric left ventricular hypertrophy. The left ventricular systolic function is normal and the ejection fraction is within normal range. T he Ejection Fraction is 60-65%. There is normal LV segmental wall motion. Transmitral Doppler flow pa ttern is Grade I-abnormal relaxation pattern. RIGHT VENTRICLE The right ventricle is normal size. The right ventricular systolic function is normal. ATRIA The left atrium is mildly dilated. The right atrium size is normal. The interatrial septum is intact with no evidence for an atrial septal defect or patent foramen ovale as noted on 2-D or Doppler imagi ng. AORTIC VALVE The aortic valve is calcified but opens well. Doppler and Color Flow revealed no significant aortic r egurgitation. There is no significant aortic valvular stenosis. MITRAL VALVE The mitral valve is normal in structure and function. There is no evidence of mitral valve prolapse. There is no mitral valve stenosis. Doppler and Color Flow revealed no mitral valve regurgitation note d. TRICUSPID VALVE The tricuspid valve is normal in structure and function. Doppler and Color Flow revealed trace to mil d tricuspid regurgitation. There is mild pulmonary hypertension. The PA pressure was estimated at 34 mmHg. There is no tricuspid valve stenosis. PULMONIC VALVE The pulmonic valve is not well visualized. Doppler and Color Flow revealed trace pulmonic valvular re gurgitation. There is no pulmonic valvular stenosis. GREAT VESSELS The aortic root is normal in size. The ascending aorta is moderately dilated at 3.7 cm. The IVC is no rmal in size and collapses >50% with inspiration. PERICARDIAL EFFUSION There is a trace to small circumferential pericardial effusion. Critical Notification Critical Value: No <Conclusion> The left ventricular systolic function is normal and the ejection fraction is within normal range. Th e Ejection Fraction is 60-65%. There is normal LV segmental wall motion. The ascending aorta is moderately dilated at 3.7 cm. There is a trace to small circumferential pericardial effusion. Signed by : Vince Frias, Electronically Approved : 07/07/2019 13:17:04
== END | disposition home or self-care (01) ==
LOC: ECHO 10:52
PROVIDERS: ATTEND Internal Medicine Cardiovascular Disease
DX: I08.2 Rheumatic disorders of both aortic and tricuspid valves (principal); I27.20 Pulmonary hypertension, unspecified; I31.3 Pericardial effusion (noninflammatory); I77.810 Thoracic aortic ectasia; I50.30 Unspecified diastolic (congestive) heart failure
CPT/HCPCS: 93306

== ENCOUNTER 2019-09-28 22:26 | Inpatient (IN) | payer MEDICAID ==
[~2019-09-28] VITALS: Ht 154.9 cm; Wt 102.3 kg
[2019-09-28] MEDS ORDERED: DEXTROSE 50% 25 GM / 50ML DISP.SYRIN. IV ONE ×2 (22:52→23:15)
[2019-09-28] MEDS ORDERED: DEXTROSE ORAL GEL 15 GM TUBE. ONE (22:52)
[2019-09-28 23:08] LABS: BASO # 0.2 x10^3/uL (0.0-0.2); BASO % 2 % (0-3); EOS # 0.2 x10^3/uL (0.0-0.7); EOS % 2 % (0-3); HEMATOCRIT 39.8 % (36.0-47.0); HEMOGLOBIN 12.9 g/dL (12.0-15.5); LYMPH # 1.9 x10^3/uL (1.0-4.8); LYMPH % 17 % (24-48); MEAN CORPUSCULAR HEMOGLOBIN 26 pg (25-35); MEAN CORPUSCULAR HGB CONC 33 g/dL (31-37); MEAN CORPUSCULAR VOLUME 79 fL (79-100); MONO # 0.7 x10^3/uL (0.0-1.1); MONO % 6 % (0-9); NEUT # 8.3 x10^3/uL (1.8-7.7); NEUT % 75 % (31-73); PLATELET COUNT 299 x10^3/uL (140-400); RED BLOOD COUNT 5.06 x10^6/uL (3.50-5.40); RED CELL DISTRIBUTION WIDTH 16.5 % (11.5-14.5); WHITE BLOOD COUNT 11.2 x10^3/uL (4.0-11.0)
[2019-09-28 23:24] LABS: ALBUMIN 2.8 g/dL (3.4-5.0); ALBUMIN/GLOBULIN RATIO 0.6 (1.0-1.7); CALCIUM 7.6 mg/dL (8.5-10.1); CREATININE 5.3 mg/dL (0.6-1.0); GFR 9.9; MAGNESIUM 1.7 mg/dL (1.8-2.4); POTASSIUM 3.5 mmol/L (3.5-5.1); TOTAL BILIRUBIN 0.3 mg/dL (0.2-1.0); TOTAL PROTEIN 7.3 g/dL (6.4-8.2)
--- NOTE | 2019-09-28 23:36 | RAD ---
Study: CR PORTABLE CHEST 1V Indication: Chest pain. Comparison: CT chest 10/04/2018 Findings: The cardiomediastinal silhouette is prominent in size. No pneumothorax or large effusion. No lobar infiltrate is seen noting that the left lower lung is obscured by the mediastinal silhouette. Scattered granulomas. Vascular calcifications Impression: Enlargement of the cardiomediastinal silhouette with resultant obscuration of the left lower lung. No other noteworthy abnormality of the chest. Electronically signed by: ANNIE LUIS MD (09/28/2019 11:33 PM) [id number]
[2019-09-29] MEDS ORDERED: IV NORMAL SALINE 1000ML BAG 1,000 ML IV ONE
[2019-09-29] MEDS ORDERED: IV DEXTROSE 10% 1,000 ML IV ONE (00:30)
[2019-09-29] MEDS ORDERED: DEXTROSE 50% 25 GM / 50ML DISP.SYRIN. IV ONE (00:30)
[2019-09-29] MEDS ORDERED: DEXTROSE ORAL GEL 15 GM TUBE. PO ONE (00:30)
--- NOTE | 2019-09-29 04:18 | PHYS DOC ---
Past Medical History Past Medical History: Asthma, Diabetes-Type II, GERD, GI Bleed, Hypertension, Hepatitis Additional Past Medical Histor: sleep apnea; ulcers; GI bleed Past Surgical History: Other Additional Past Surgical Histo: Umbilical hernia repair; colon resection Smoking Status: Current Every Day Smoker Alcohol Use: None Drug Use: None General Adult EDM: Chief Complaint: HYPOGLYCEMIA HPI: HPI: 64-year-old female past medical history significant for diabetes, hypertension, hyperlipidemia and GERD, presents to the ED with complaints of hypoglycemia. Patient's daughter is present in the ED and states patient takes glimepiride 2 mg twice daily, is no longer on metformin. Patient took her glimepiride this morning and around noon had a glucose in her 40s. EMS was called and they gave D50 IV and glucose increased to 200 and pt did not seek emergency medical care. Patient did not take her evening dose of glimepiride and was found to have a glucose in her 30s around 8pm. I did review patient's pill bottles and glimepiride was filled August 23. Poor history, unclear if this is a new medication for patient. Patient does state she has had chronic abdominal pain for a while. Relates this to her hernia and states this is given her anorexia. pmd-Dr. Modesto MCFADDEN: Denies associated fever, chills, cough, dyspnea, diaphoresis, headache, ne ck pain, nausea, vomiting, chest pain pressure or tightness, back pain, leg swelling, rash, dysuria or hematuria. Review of Systems: Review of Systems: Constitutional: Denies fever or chills. [] Eyes: Denies change in visual acuity. [] HENT: Denies nasal congestion or sore throat. [] Respiratory: Denies cough or shortness of breath. [] Cardiovascular: Denies chest pain or edema. [] GI: Denies abdominal pain, nausea, vomiting, bloody stools or diarrhea. [] : Denies dysuria. [] Musculoskeletal: Denies back pain or joint pain. [] Integument: Denies rash. [] Neurologic: Denies headache, focal weakness or sensory changes. [] Endocrine: Denies polyuria or polydipsia. [] Lymphatic: Denies swollen glands. [] Psychiatric: Denies depression or anxiety. [] Heart Score: Risk Factors: Risk Factors: DM, Current or recent (<one month) smoker, HTN, HLP, family history of CAD, obesity. Risk Scores: Score 0 - 3: 2.5% MACE over next 6 weeks - Discharge Home Score 4 - 6: 20.3% MACE over next 6 weeks - Admit for Clinical Observation Score 7 - 10: 72.7% MACE over next 6 weeks - Early Invasive Strategies Current Medications: Current Medications Medications (Trade) Dose Ordered Sig/Howard Start Time Stop Time Status Last Admin Dose Admin Dextrose 1,000 ml @ 150 mls/hr 1X ONCE 09/29/19 00:30 09/29/19 07:09 Dextrose (Dextrose 50%-Water Syringe) 25 gm 1X ONCE 09/29/19 00:30 09/29/19 00:31 DC 09/29/19 00:24 25 GM Glucose (Insta-Glucose) 15 gm 1X ONCE 09/29/19 00:30 09/29/19 00:31 DC 09/29/19 00:21 15 GM Sodium Chloride 1,000 ml @ 1,000 mls/hr 1X ONCE 09/29/19 00:00 09/29/19 01:10 DC Allergies: Allergies: Allergies Coded Allergies Type Severity Reaction Last Updated Verified No Known Drug Allergies 07/27/18 No Physical Exam: PE: Constitutional: Well developed, well nourished, no acute distress, non-toxic appearance, obese HENT: Normocephalic, atraumatic, bilateral external ears normal, oropharynx moist, no oral exudates, nose normal. [] Eyes: EOMI, conjunctiva normal, no discharge. [] Neck: Normal range of motion, no tenderness, supple, no stridor. [] Cardiovascular:Heart rate regular rhythm, no murmur [] Lungs & Thorax: Bilateral breath sounds clear to auscultation [] Abdomen: suspect ventral wall hernia-large, no ttp, Bowel sounds normal, soft, no tenderness, no masses, no pulsatile masses. [] Skin: Warm, dry, no erythema, no rash. [] Back: No tenderness, no CVA tenderness. [] Extremities: No tenderness, no cyanosis, no clubbing, ROM intact, no edema. [] Neurologic: Alert and oriented X 3, normal motor function, normal sensory function, no focal deficits noted. [] Psychologic: Affect normal, judgement normal, mood normal. [] Current Patient Data: Labs: Laboratory Tests Test 09/28/19 22:48 09/28/19 22:59 09/28/19 23:06 09/29/19 02:22 Glucose (Fingerstick) 30 mg/dL (70-99) *L 126 mg/dL (70-99) H 81 mg/dL (70-99) White Blood Count 11.2 x10^3/uL (4.0-11.0) H Red Blood Count 5.06 x10^6/uL (3.50-5.40) Hemoglobin 12.9 g/dL (12.0-15.5) Hematocrit 39.8 % (36.0-47.0) Mean Corpuscular Volume 79 fL (79-100) Mean Corpuscular Hemoglobin 26 pg (25-35) Mean Corpuscular Hemoglobin Concent 33 g/dL (31-37) Red Cell Distribution Width 16.5 % (11.5-14.5) H Platelet Count 299 x10^3/uL (140-400) Neutrophils (%) (Auto) 75 % (31-73) H Lymphocytes (%) (Auto) 17 % (24-48) L Monocytes (%) (Auto) 6 % (0-9) Eosinophils (%) (Auto) 2 % (0-3) Basophils (%) (Auto) 2 % (0-3) Neutrophils # (Auto) 8.3 x10^3/uL (1.8-7.7) H Lymphocytes # (Auto) 1.9 x10^3/uL (1.0-4.8) Monocytes # (Auto) 0.7 x10^3/uL (0.0-1.1) Eosinophils # (Auto) 0.2 x10^3/uL (0.0-0.7) Basophils # (Auto) 0.2 x10^3/uL (0.0-0.2) Sodium Level 141 mmol/L (136-145) Potassium Level 3.5 mmol/L (3.5-5.1) Chloride Level 104 mmol/L (98-107) Carbon Dioxide Level 22 mmol/L (21-32) Anion Gap 15 (6-14) H Blood Urea Nitrogen 47 mg/dL (7-20) H Creatinine 5.3 mg/dL (0.6-1.0) H Estimated GFR (Cockcroft-Gault) 9.9 BUN/Creatinine Ratio 9 (6-20) Glucose Level 34 mg/dL (70-99) *L Calcium Level 7.6 mg/dL (8.5-10.1) L Magnesium Level 1.7 mg/dL (1.8-2.4) L Total Bilirubin 0.3 mg/dL (0.2-1.0) Aspartate Amino Transferase (AST) 30 U/L (15-37) Alanine Aminotransferase (ALT) 19 U/L (14-59) Alkaline Phosphatase 127 U/L (46-116) H Troponin I Quantitative < 0.017 ng/mL (0.000-0.055) Total Protein 7.3 g/dL (6.4-8.2) Albumin 2.8 g/dL (3.4-5.0) L Albumin/Globulin Ratio 0.6 (1.0-1.7) L Ethyl Alcohol Level < 10 mg/dL (0-10) Laboratory Tests 09/28/19 22:59 Laboratory Tests 09/28/19 22:59 Vital Signs: Vital Signs Date Time Temp Pulse Resp B/P (MAP) Pulse Ox O2 Delivery O2 Flow Rate FiO2 09/29/19 01:37 98 169/86 (113) 98 09/29/19 00:37 Room Air 09/28/19 22:45 98.6 14 98.6 EKG: EKG: [] Radiology/Procedures: Radiology/Procedures: IMAGING REPORT Signed PATIENT: HERRERA BERKOWITZ ACCOUNT: [id number] : 1955 LOCATION: ER AGE: 64 SEX: F EXAM STATUS: REG ER ORD. PHYSICIAN: GLADYS SAUL DO REASON: hypog PROCEDURE: PORTABLE CHEST 1V Study: CR PORTABLE CHEST 1V Indication: Chest pain. Comparison: CT chest 10/04/2018 Findings: The cardiomediastinal silhouette is prominent in size. No pneumothorax or large effusion. No lobar infiltrate is seen noting that the left lower lung is obscured by the mediastinal silhouette. Scattered granulomas. Vascular calcifications Impression: Enlargement of the cardiomediastinal silhouette with resultant obscuration of the left lower lung. No other noteworthy abnormality of the chest. Electronically signed by: ANNIE LUIS MD (09/28/2019 11:33 PM) [id number] DICTATED and SIGNED BY: ANNIE LUIS MD DATE: 09/28/19 2333 IMAGING REPORT Signed PATIENT: HERRERA BERKOWITZ ACCOUNT: [id number] : 1955 LOCATION: 2 [facility] AGE: 64 SEX: F EXAM STATUS: ADM IN ORD. PHYSICIAN: GLADYS SAUL DO REASON: hernia PROCEDURE: CT ABDOMEN PELVIS WO CONTRAST INDICATION: Reason: hernia / Spl. Instructions: / History: COMPARISON: February 2018 TECHNIQUE: Axial CT images obtained through the abdomen and pelvis without contrast. One or more of the following individualized dose reduction techniques were utilized for this examination: 1. Automated exposure control; 2. Adjustment of the mA and/or kV according to patient size; 3. Use of iterative reconstruction technique. FINDINGS: Small pericardial effusion again seen. Severe calcific atherosclerosis. Liver is prominent in size. Edema throughout the soft tissues. Limited evaluation of the pancreas without contrast. No evidence of splenomegaly. There is some thickening of the bilateral adrenal glands. Redemonstration of an exophytic lesion off the lower pole of the left kidney measuring up to 15 mm. Fullness of the mid pole of the bilateral kidneys is again seen. Nonspecific stranding of the bilateral kidneys. Urinary bladder is partially distended. No hydronephrosis. Low-density lesion of the right kidney measuring 16 mm and may be cystic in nature. Calcifications bilateral renal pelvis could be from nonobstructive stone although a portion could also be from calcific atherosclerosis. Colonic diverticulosis. No dilated loops of bowel to suggest obstruction. The upper abdomen there is fat-containing anterior abdominal wall hernias. There is also some fat containing anterior abdominal wall hernia is seen within the pelvis. Umbilical hernia is seen with loop of bowel extending into it again seen but no evidence of obstruction. Duodenal diverticulum. Degenerative changes of the spine with multilevel central canal and neural foraminal stenosis. Degenerative changes of the bilateral hips. IMPRESSION: * Multiple anterior abdominal wall hernias are identified containing fat with one of them near the umbilicus again containing a portion of the bowel. There is no evidence of associated obstruction. * No hydronephrosis. * Bilateral low-density renal lesions are again seen and incompletely characterized on noncontrast imaging. Couple of these are likely cystic in nature. * Pericardial effusion is again seen. Electronically signed by: Brendon Resendez MD (09/29/2019 5:24 AM) [id number] DICTATED and SIGNED BY: BRENDON RESENDEZ MD DATE: 09/29/19 0524 Impression: Concern for hypoglycemia secondary to sulfonylurea use and poor oral intake. Patient was given 2 Amps of D50 in the ED and started on D10. Patient tolerated food in the ED. She does have a significant acute on chronic renal injury that nephrology will be consulted. Potassium is 3.5. CT imaging shows no obstructive renal pathology. Will admit for further medical management. Patient agrees with this plan. Course & Med Decision Making: Course & Med Decision Making Pertinent Labs and Imaging studies reviewed. (See chart for details) [] Dragon Disclaimer: Dragon Disclaimer: This electronic medical record was generated, in whole or in part, using a voice recognition dictation system. Departure Departure Impression: Primary Impression: Hypoglycemia Additional Impressions: Adverse effect of sulfonylurea [id number] kidney injury Disposition: ADMITTED INPATIENT Admitting Physician: PAUL Condition: GUARDED Referrals: RICKY PORTILLO MD (PCP) Justicifation of Admission Dx: Justifications for Admission: Justification of Admission Dx: Yes Acute Renal Failure: Serum Cr > 4mg/dL GLADYS SAUL DO Sep 29, 2019 04:18
[2019-09-29] MEDS ORDERED: ONDANSETRON PF 4 MG/2 ML VIAL. IV PRN (04:45)
--- NOTE | 2019-09-29 05:27 | RAD ---
INDICATION: Reason: hernia / Spl. Instructions: / History: COMPARISON: February 2018 TECHNIQUE: Axial CT images obtained through the abdomen and pelvis without contrast. One or more of the following individualized dose reduction techniques were utilized for this examination: 1. Automated exposure control; 2. Adjustment of the mA and/or kV according to patient size; 3. Use of iterative reconstruction technique. FINDINGS: Small pericardial effusion again seen. Severe calcific atherosclerosis. Liver is prominent in size. Edema throughout the soft tissues. Limited evaluation of the pancreas without contrast. No evidence of splenomegaly. There is some thickening of the bilateral adrenal glands. Redemonstration of an exophytic lesion off the lower pole of the left kidney measuring up to 15 mm. Fullness of the mid pole of the bilateral kidneys is again seen. Nonspecific stranding of the bilateral kidneys. Urinary bladder is partially distended. No hydronephrosis. Low-density lesion of the right kidney measuring 16 mm and may be cystic in nature. Calcifications bilateral renal pelvis could be from nonobstructive stone although a portion could also be from calcific atherosclerosis. Colonic diverticulosis. No dilated loops of bowel to suggest obstruction. The upper abdomen there is fat-containing anterior abdominal wall hernias. There is also some fat containing anterior abdominal wall hernia is seen within the pelvis. Umbilical hernia is seen with loop of bowel extending into it again seen but no evidence of obstruction. Duodenal diverticulum. Degenerative changes of the spine with multilevel central canal and neural foraminal stenosis. Degenerative changes of the bilateral hips. IMPRESSION: * Multiple anterior abdominal wall hernias are identified containing fat with one of them near the umbilicus again containing a portion of the bowel. There is no evidence of associated obstruction. * No hydronephrosis. * Bilateral low-density renal lesions are again seen and incompletely characterized on noncontrast imaging. Couple of these are likely cystic in nature. * Pericardial effusion is again seen. Electronically signed by: Jens Troy MD (09/29/2019 5:24 AM) [id number]
[2019-09-29 06:23] VITALS: BP 191/105
[2019-09-29] MEDS ORDERED: PANT40TA77 PO (06:38)
[2019-09-29] MEDS ORDERED: CLON0.1T12 PO (06:38)
[2019-09-29] MEDS ORDERED: NON FORMULARY ITEM (Fluticasone/Umeclidin/Vilanter (Trelegy Ellipta 100-62.5-25) 1 EACH) IH SCH (09:00)
[2019-09-29] MEDS: IPRATRPIUM/ALBUTEROL 0.5/2.5MG 3 ML NEBU. NEB SCH ×4 (09:00→19:53)
[2019-09-29] MEDS: SODIUM BICARBONATE VIAL 50 MEQ in IV 1/2 NORMAL SALINE 1,000 ML IV SCH ×2 (09:36→22:05)
--- NOTE | 2019-09-29 09:43 | NUR ---
SS following for discharge planning. SS reviewed pt chart and discussed with pt RN. Pt is from home with son and is currently on room air. SS will continue to follow for discharge planning.
[2019-09-29] MEDS: ASPIRIN ENTERIC COATED 81 MG TABLET.DR. PO SCH (09:58)
[2019-09-29] MEDS: PANTOPRAZOLE 40 MG TABLET.DR. PO SCH (09:59)
[2019-09-29] MEDS: cloNIDine HCL 0.1 MG TABLET PO SCH ×2 (10:01→20:24)
[2019-09-29] MEDS: amLODIPine BESYLATE 10 MG TABLET PO SCH (10:02)
[2019-09-29 10:25] VITALS: BP 201/100
--- NOTE | 2019-09-29 11:10 | CONS ---
DATE OF CONSULTATION: 09/29/2019 PULMONARY CONSULTATION ATTENDING PHYSICIAN: Presley Chou MD REASON FOR CONSULTATION: COPD. HISTORY OF PRESENT ILLNESS: The patient is a 64-year-old obese patient who weighs 204 kilo. She presented to the hospital with complaint of high blood sugar. She had some mild shortness of breath with exertion. The patient states that she used to be on oxygen, but no longer takes it. She denies any chest pain. She does have a cough with some foamy sputum production and some wheezing as well. The patient smoked for about 30 years, quit in 2008. She is not on home oxygen. No evidence of pulmonary embolism or DVT. No leg edema. I have been asked to see her for further evaluation. I have reviewed the patient's chest x-ray. Slightly prominent interstitial markings and some atelectasis in the left lower lobe. She also had a CT abdomen and pelvis, which was done today. I have reviewed lower section of the lungs. There is no obvious infiltrates or consolidation seen. PAST MEDICAL HISTORY: Significant for history of suspected COPD, history of morbid obesity, GERD, GI bleed, hypertension, hepatitis, sleep apnea and GI bleed. PAST SURGICAL HISTORY: Umbilical hernia repair, colon resection. SOCIAL HISTORY: Smoker for 30 years, quit in 2008. REVIEW OF SYSTEMS: Twelve-point system obtained. Pertinent positives discussed in my history of present illness, otherwise noncontributory. All systems that were negative were reviewed as well. FAMILY HISTORY: Noncontributory to lungs. MEDICATIONS: Reviewed including DuoNebs and Pulmicort. PHYSICAL EXAMINATION: GENERAL: She is awake, following commands. No obvious respiratory distress. VITAL SIGNS: Blood pressure on the high side 201/100, pulse ox 94% on 2 liters, afebrile. HEENT: Sclerae nonicteric. NECK: Supple. LUNGS: With occasional wheezes. CARDIOVASCULAR: Regular rate. ABDOMEN: Soft. EXTREMITIES: With no pitting edema. LABORATORY DATA: Reviewed. White cell count 11.2, hemoglobin 12.9 and platelets are 299. BUN is 47 and creatinine of 5.3. Her glucose was 34. IMPRESSION: 1. Acute hypoxic respiratory failure secondary to chronic obstructive pulmonary disease exacerbation. 2. Morbid obesity also contributing to chronic hypoxia. 3. Suspected obstructive sleep apnea. 4. Acute kidney injury. RECOMMENDATIONS: 1. Continue present oxygen. 2. Continue DuoNeb along with Pulmicort. 3. Follow renal recommendation. 4. The patient will need a 6-minute walk test at the time of discharge. 5. PFTs as an outpatient. 6. Consider sleep study as an outpatient. 7. Discussed with Dr. Stern and RN. We will follow along with you. ADRIAN CERNA MD DR: LILIANA/kat JOB#: [id number] / [id number]
--- NOTE | 2019-09-29 11:17 | PDOC2 ---
CONSULT Date of Consult Date of Consult DATE: 09/29/19 TIME: 11:09 Reason for Consult Reason for Consult: RENAL FAILURE Referring Physician Referring Physician: MARIA G Identification/Chief Complaint Chief Complaint CONFUSION Source Source: Chart review, Patient History of Present Illness Reason for Visit: THIS IS A 64 YR AAF WITH CONFUSION DUE TO HYPOGLYCEMIA. ADMITTED WITH BG IN THE 40'S. POOR APPETITE AND SOME ABD DISCOMFORT. ? OF HERNIA RELATED PAIN. RENAL CONSULT DUE TO CR OF 5.3. SHE HAS STAGE 4 CKD DUE TO DM II AND HTN. CR IN THE 2.7-3.0 RANGE OP. NO NEPHROTOXINS. NO OTHER HX. NO HX OF ANY RENAL MORPHOLOGY ABNORMALITIES. NO HX OF ANY KIDNEY OR BLADDER SURGERY HEMATURIA DYSU JORGE LUIS OR FREQUENCY. SOME STRESS INCONTINENCE AND THRICE NOCTURIA NOTED. HAS CHRONIC SOB. ? OF COPD. HAS SIGNIFICANT SMOKING HX. Past Medical History Cardiovascular: HTN, Hyperlipidemia, Other Pulmonary: COPD, Other CENTRAL NERVOUS SYSTEM: Migraine GI: Constipation, Diverticulosis, GERD, GI bleed, Peptic Ulcer disease Heme/Onc: No pertinent hx Hepatobiliary: Hep A/B/C Psych: Anxiety, Depression Musculoskeletal: Osteoarthritis Rheumatologic: No pertinent hx Infectious disease: No pertinent hx Renal/: Chronic renal insuff Endocrine: Diabetes Past Surgical History Past Surgical History: , Hernia Repair, Colon Resection, Other Family History Family History: No Significant Social History ALCOHOL: none Drugs: None Lives: with Family Current Problem List Problem List Problems Medical Problems: (1) [id number] kidney injury Status: Acute (2) Adverse effect of sulfonylurea Status: Acute (3) Hypoglycemia Status: Acute Current Medications Current Medications Current Medications Glucose (Insta-Glucose) 15 gm STK-MED ONCE .ROUTE ; Start 09/28/19 at 22:52; Stop 09/28/19 at 22:52; Status DC Dextrose (Dextrose 50%-Water Syringe) 25 gm STK-MED ONCE IV ; Start 09/28/19 at 22:52; Stop 09/28/19 at 22:52; Status DC Dextrose (Dextrose 50%-Water Syringe) 25 gm 1X ONCE IV Last administered on 09/28/19at 23:10; Start 09/28/19 at 23:15; Stop 09/28/19 at 23:16; Status DC Sodium Chloride 1,000 ml @ 1,000 mls/hr 1X ONCE IV ; Start 09/29/19 at 00:00; Stop 09/29/19 at 01:10; Status DC Dextrose (Dextrose 50%-Water Syringe) 25 gm 1X ONCE IV Last administered on 09/29/19at 00:24; Start 09/29/19 at 00:30; Stop 09/29/19 at 00:31; Status DC Dextrose 1,000 ml @ 150 mls/hr 1X ONCE IV Last administered on 09/29/19at 00:30; Start 09/29/19 at 00:30; Stop 09/29/19 at 07:09; Status DC Glucose (Insta-Glucose) 15 gm 1X ONCE PO Last administered on 09/29/19at 00:21; Start 09/29/19 at 00:30; Stop 09/29/19 at 00:31; Status DC Ondansetron HCl (Zofran) 4 mg PRN Q8HRS PRN IV NAUSEA/VOMITING; Start 09/29/19 at 04:45; Stop 09/30/19 at 04:44 Amlodipine Besylate (Norvasc) 10 mg DAILY PO Last administered on 09/29/19at 10:02; Start 09/29/19 at 09:00 Aspirin (Ecotrin) 81 mg DAILYWBKFT PO Last administered on 09/29/19at 09:58; Start 09/29/19 at 09:00 Clonidine HCl (Catapres) 0.1 mg BID PO Last administered on 09/29/19at 10:01; Start 09/29/19 at 09:00 Pantoprazole Sodium (Protonix) 40 mg DAILYAC PO Last administered on 09/29/19at 09:59; Start 09/29/19 at 09:00 Non-Formulary Medication (Fluticasone/ Umeclidin/ Vilanter (Trelegy Ellipta 100-62.5-25)) 1 each BID IH ; Start 09/29/19 at 09:00; Status UNV Albuterol/ Ipratropium (Duoneb) 3 ml RTQID NEB ; Start 09/29/19 at 09:00 Budesonide (Pulmicort) 0.5 mg RTBID NEB ; Start 09/29/19 at 09:00 Sodium Bicarbonate 50 meq/Sodium Chloride 1,050 ml @ 100 mls/hr [id number] IV Last administered on 09/29/19at 09:36; Start 09/29/19 at 09:00 Active Scripts Active Aspirin Ec (Aspirin) 81 Mg Tablet. 81 Mg PO DAILYWBKFT 30 Days Reported Protonix (Pantoprazole Sodium) 40 Mg Tablet. 40 Mg PO DAILYAC Catapres (Clonidine Hcl) 0.1 Mg Tablet 1 Tab PO BID Trelegy Ellipta 100-62.5-25 (Fluticasone/Umeclidin/Vilanter) 1 Each Blst.w.dev 1 Each IH BID Losartan-Hctz 100-25 Mg Tab (Losartan/Hydrochlorothiazide) 1 Each Tablet 1 Each PO DAILY Albuterol Sulfate Hfa Inhaler (Albuterol Sulfate) 8.5 Gm Hfa.aer.ad 8.5 Gm IH Amlodipine Besylate 10 Mg Tablet 10 Mg PO DAILY Glimepiride 1 Mg Tablet 2 Mg PO BIDWMEALS Allergies Allergies: Coded Allergies: No Known Drug Allergies (Unverified , 07/27/18) ROS General: YES: Fatigue, Malaise PSYCHOLOGICAL ROS: YES: Anxiety, Depression Eyes: Yes Decreased vision ALLERGY AND IMMUNOLOGY: YES: Seasonal Allergies Respiratory: YES: Cough, Shortness of breath Gastrointestinal: Yes Nausea, Yes Abdominal Pain Genitourinary: YES Incontinence, YES Other (NOCTURIA) Musculoskeletal: Yes Muscular Weakness Neurological: Yes Weakness Skin: Yes Dry Skin Physical Exam General: Alert, Oriented X3, Cooperative, No acute distress HEENT: Atraumatic, PERRLA Lungs: Other (FEW WHEEZES) Heart: Regular rate Abdomen: Normal bowel sounds, Soft, No tenderness Extremities: No cyanosis Skin: No breakdown Neuro: Normal speech, Other (FLAT) Psych/Mental Status: Other (FLAT, NO ASYMMETRY) MUSCULOSKELETAL: No joint tenderness, No deformity, No swelling Vitals VITALS Vital Signs Date Time Temp Pulse Resp B/P (MAP) Pulse Ox O2 Delivery O2 Flow Rate FiO2 09/29/19 10:25 98.1 99 20 201/100 (133) 94 Nasal Cannula 2.0 98.1 Labs Labs Laboratory Tests Test 09/28/19 22:48 09/28/19 22:59 09/28/19 23:06 09/29/19 02:22 Glucose (Fingerstick) 30 mg/dL (70-99) 126 mg/dL (70-99) 81 mg/dL (70-99) White Blood Count 11.2 x10^3/uL (4.0-11.0) Red Blood Count 5.06 x10^6/uL (3.50-5.40) Hemoglobin 12.9 g/dL (12.0-15.5) Hematocrit 39.8 % (36.0-47.0) Mean Corpuscular Volume 79 fL (79-100) Mean Corpuscular Hemoglobin 26 pg (25-35) Mean Corpuscular Hemoglobin Concent 33 g/dL (31-37) Red Cell Distribution Width 16.5 % (11.5-14.5) Platelet Count 299 x10^3/uL (140-400) Neutrophils (%) (Auto) 75 % (31-73) Lymphocytes (%) (Auto) 17 % (24-48) Monocytes (%) (Auto) 6 % (0-9) Eosinophils (%) (Auto) 2 % (0-3) Basophils (%) (Auto) 2 % (0-3) Neutrophils # (Auto) 8.3 x10^3/uL (1.8-7.7) Lymphocytes # (Auto) 1.9 x10^3/uL (1.0-4.8) Monocytes # (Auto) 0.7 x10^3/uL (0.0-1.1) Eosinophils # (Auto) 0.2 x10^3/uL (0.0-0.7) Basophils # (Auto) 0.2 x10^3/uL (0.0-0.2) Sodium Level 141 mmol/L (136-145) Potassium Level 3.5 mmol/L (3.5-5.1) Chloride Level 104 mmol/L (98-107) Carbon Dioxide Level 22 mmol/L (21-32) Anion Gap 15 (6-14) Blood Urea Nitrogen 47 mg/dL (7-20) Creatinine 5.3 mg/dL (0.6-1.0) Estimated GFR (Cockcroft-Gault) 9.9 BUN/Creatinine Ratio 9 (6-20) Glucose Level 34 mg/dL (70-99) Calcium Level 7.6 mg/dL (8.5-10.1) Magnesium Level 1.7 mg/dL (1.8-2.4) Total Bilirubin 0.3 mg/dL (0.2-1.0) Aspartate Amino Transf (AST/SGOT) 30 U/L (15-37) Alanine Aminotransferase (ALT/SGPT) 19 U/L (14-59) Alkaline Phosphatase 127 U/L (46-116) Troponin I Quantitative < 0.017 ng/mL (0.000-0.055) Total Protein 7.3 g/dL (6.4-8.2) Albumin 2.8 g/dL (3.4-5.0) Albumin/Globulin Ratio 0.6 (1.0-1.7) Ethyl Alcohol Level < 10 mg/dL (0-10) Test 09/29/19 05:23 09/29/19 08:07 Glucose (Fingerstick) 107 mg/dL (70-99) 111 mg/dL (70-99) Laboratory Tests Test 09/28/19 22:48 09/28/19 22:59 09/28/19 23:06 09/29/19 02:22 Glucose (Fingerstick) 30 mg/dL (70-99) 126 mg/dL (70-99) 81 mg/dL (70-99) White Blood Count 11.2 x10^3/uL (4.0-11.0) Red Blood Count 5.06 x10^6/uL (3.50-5.40) Hemoglobin 12.9 g/dL (12.0-15.5) Hematocrit 39.8 % (36.0-47.0) Mean Corpuscular Volume 79 fL (79-100) Mean Corpuscular Hemoglobin 26 pg (25-35) Mean Corpuscular Hemoglobin Concent 33 g/dL (31-37) Red Cell Distribution Width 16.5 % (11.5-14.5) Platelet Count 299 x10^3/uL (140-400) Neutrophils (%) (Auto) 75 % (31-73) Lymphocytes (%) (Auto) 17 % (24-48) Monocytes (%) (Auto) 6 % (0-9) Eosinophils (%) (Auto) 2 % (0-3) Basophils (%) (Auto) 2 % (0-3) Neutrophils # (Auto) 8.3 x10^3/uL (1.8-7.7) Lymphocytes # (Auto) 1.9 x10^3/uL (1.0-4.8) Monocytes # (Auto) 0.7 x10^3/uL (0.0-1.1) Eosinophils # (Auto) 0.2 x10^3/uL (0.0-0.7) Basophils # (Auto) 0.2 x10^3/uL (0.0-0.2) Sodium Level 141 mmol/L (136-145) Potassium Level 3.5 mmol/L (3.5-5.1) Chloride Level 104 mmol/L (98-107) Carbon Dioxide Level 22 mmol/L (21-32) Anion Gap 15 (6-14) Blood Urea Nitrogen 47 mg/dL (7-20) Creatinine 5.3 mg/dL (0.6-1.0) Estimated GFR (Cockcroft-Gault) 9.9 BUN/Creatinine Ratio 9 (6-20) Glucose Level 34 mg/dL (70-99) Calcium Level 7.6 mg/dL (8.5-10.1) Magnesium Level 1.7 mg/dL (1.8-2.4) Total Bilirubin 0.3 mg/dL (0.2-1.0) Aspartate Amino Transf (AST/SGOT) 30 U/L (15-37) Alanine Aminotransferase (ALT/SGPT) 19 U/L (14-59) Alkaline Phosphatase 127 U/L (46-116) Troponin I Quantitative < 0.017 ng/mL (0.000-0.055) Total Protein 7.3 g/dL (6.4-8.2) Albumin 2.8 g/dL (3.4-5.0) Albumin/Globulin Ratio 0.6 (1.0-1.7) Ethyl Alcohol Level < 10 mg/dL (0-10) Test 09/29/19 05:23 09/29/19 08:07 Glucose (Fingerstick) 107 mg/dL (70-99) 111 mg/dL (70-99) Assessment/Plan Assessment/Plan IMP JONO WITH CR OF 5.3 SUSPECT EXTRACELLULAR VOLUME DEPLETION CKD STAGE 4-CR AT BASELINE-RANGE OF 2.7-3.0 HYPOGLYCEMIA CHRONIC DYSPNEA-SUSPECT COPD DM II-HYPOGLYCEMIA HTN-UNCONTROLLED PLAN HYDRATION RENAL SONOGRAM AGREE WITH CLONIDINE AND NORVASC D/C ARB DIURETIC COMBINATION CONT SAME CHECK UA PULM EVAL WILL FOLLOW TYRONE DONNELLY MD Sep 29, 2019 11:17
[2019-09-29] MEDS: BUDESONIDE 0.5 MG/2 ML NEBU. NEB SCH ×2 (11:44→19:53)
--- NOTE | 2019-09-29 13:44 | PDOC1 ---
History and Physical Date of Admission Date of Admission DATE: 09/29/19 TIME: 13:39 History of Present Illness History of Present Illness pt seen 0800 Ms. Persaud is a 64-year-old female past medical history significant for diabetes, hypertension, hyperlipidemia and GERD, presents to the ED with complaints of hypoglycemia. she was feeling weak yesterday, blood sugar had dropped, she iniitally did not seek medical care. She then did not take her evening dose of glimepiride and was found to have a glucose in her 30s around 8pm. she was confused last night, seems more clear this AM she reports she cannot take insulin as it makes her nauseated Past Medical History Cardiovascular: HTN, Hyperlipidemia, Other Pulmonary: COPD, Other CENTRAL NERVOUS SYSTEM: Migraine GI: Constipation, Diverticulosis, GERD, GI bleed, Peptic Ulcer disease Heme/Onc: No pertinent hx Hepatobiliary: Hep A/B/C Psych: Anxiety, Depression Musculoskeletal: Osteoarthritis Rheumatologic: No pertinent hx Infectious disease: No pertinent hx Renal/: Chronic renal insuff Endocrine: Diabetes Past Surgical History Past Surgical History: , Hernia Repair, Colon Resection, Other Family History Family History: No Significant Social History Smoke: No ALCOHOL: none Drugs: None Current Problem List Problem List Problems Medical Problems: (1) [id number] kidney injury Status: Acute (2) Adverse effect of sulfonylurea Status: Acute (3) Hypoglycemia Status: Acute Current Medications Current Medications Current Medications Glucose (Insta-Glucose) 15 gm STK-MED ONCE .ROUTE ; Start 09/28/19 at 22:52; Stop 09/28/19 at 22:52; Status DC Dextrose (Dextrose 50%-Water Syringe) 25 gm STK-MED ONCE IV ; Start 09/28/19 at 22:52; Stop 09/28/19 at 22:52; Status DC Dextrose (Dextrose 50%-Water Syringe) 25 gm 1X ONCE IV Last administered on 09/28/19at 23:10; Start 09/28/19 at 23:15; Stop 09/28/19 at 23:16; Status DC Sodium Chloride 1,000 ml @ 1,000 mls/hr 1X ONCE IV ; Start 09/29/19 at 00:00; Stop 09/29/19 at 01:10; Status DC Dextrose (Dextrose 50%-Water Syringe) 25 gm 1X ONCE IV Last administered on 09/29/19at 00:24; Start 09/29/19 at 00:30; Stop 09/29/19 at 00:31; Status DC Dextrose 1,000 ml @ 150 mls/hr 1X ONCE IV Last administered on 09/29/19at 00:30; Start 09/29/19 at 00:30; Stop 09/29/19 at 07:09; Status DC Glucose (Insta-Glucose) 15 gm 1X ONCE PO Last administered on 09/29/19at 00:21; Start 09/29/19 at 00:30; Stop 09/29/19 at 00:31; Status DC Ondansetron HCl (Zofran) 4 mg PRN Q8HRS PRN IV NAUSEA/VOMITING; Start 09/29/19 at 04:45; Stop 09/30/19 at 04:44 Amlodipine Besylate (Norvasc) 10 mg DAILY PO Last administered on 09/29/19at 10:02; Start 09/29/19 at 09:00 Aspirin (Ecotrin) 81 mg DAILYWBKFT PO Last administered on 09/29/19 09:58; Start 09/29/19 at 09:00 Clonidine HCl (Catapres) 0.1 mg BID PO Last administered on 09/29/19 10:01; Start 09/29/19 at 09:00 Pantoprazole Sodium (Protonix) 40 mg DAILYAC PO Last administered on 09/29/19 09:59; Start 09/29/19 at 09:00 Non-Formulary Medication (Fluticasone/ Umeclidin/ Vilanter (Trelegy Ellipta 100-62.5-25)) 1 each BID IH ; Start 09/29/19 at 09:00; Status UNV Albuterol/ Ipratropium (Duoneb) 3 ml RTQID NEB Last administered on 09/29/19 11:44; Start 09/29/19 at 09:00 Budesonide (Pulmicort) 0.5 mg RTBID NEB Last administered on 09/29/19at 11:44; Start 09/29/19 at 09:00 Sodium Bicarbonate 50 meq/Sodium Chloride 1,050 ml @ 100 mls/hr [id number] IV Last administered on 09/29/19at 09:36; Start 09/29/19 at 09:00 Active Scripts Active Aspirin Ec (Aspirin) 81 Mg Tablet. 81 Mg PO DAILYWBKFT 30 Days Reported Protonix (Pantoprazole Sodium) 40 Mg Tablet. 40 Mg PO DAILYAC Catapres (Clonidine Hcl) 0.1 Mg Tablet 1 Tab PO BID Trelegy Ellipta 100-62.5-25 (Fluticasone/Umeclidin/Vilanter) 1 Each Blst.w.dev 1 Each IH BID Losartan-Hctz 100-25 Mg Tab (Losartan/Hydrochlorothiazide) 1 Each Tablet 1 Each PO DAILY Albuterol Sulfate Hfa Inhaler (Albuterol Sulfate) 8.5 Gm Hfa.aer.ad 8.5 Gm IH Amlodipine Besylate 10 Mg Tablet 10 Mg PO DAILY Glimepiride 1 Mg Tablet 2 Mg PO BIDWMEALS Allergies Allergies: Coded Allergies: No Known Drug Allergies (Unverified , 07/27/18) ROS Review of System ROS: Denies associated fever, chills, cough, dyspnea, diaphoresis, headache, neck pain, nausea, vomiting, chest pain pressure or tightness, back pain, leg swelling, rash, dysuria or hematuria. Respiratory: YES: Shortness of breath, SOB with excertion Cardiovascular: yes Orthopnea, yes Edema; No Chest Pain, No Palpitations, No Paroxysmal Noc. Dyspnea, No Lt Headedness, No Other Gastrointestinal: Yes Nausea Skin: Yes Dry Skin Physical Exam General: Alert, Cooperative, mild distress HEENT: Atraumatic, EOMI Lungs: Clear to auscultation Heart: no gallops, no murmurs Extremities: No cyanosis, Normal pulses, Other (tr edema, dry skin) Skin: No breakdown, No significant lesion Neuro: Sensation intact Psych/Mental Status: Mental status NL, Mood NL Vitals Vitals Vital Signs Date Time Temp Pulse Resp B/P (MAP) Pulse Ox O2 Delivery O2 Flow Rate FiO2 09/29/19 11:44 99 Room Air 09/29/19 10:25 98.1 99 20 201/100 (133) 2.0 98.1 Labs Labs Laboratory Tests Test 09/28/19 22:48 09/28/19 22:59 09/28/19 23:06 09/29/19 02:22 Glucose (Fingerstick) 30 mg/dL (70-99) 126 mg/dL (70-99) 81 mg/dL (70-99) White Blood Count 11.2 x10^3/uL (4.0-11.0) Red Blood Count 5.06 x10^6/uL (3.50-5.40) Hemoglobin 12.9 g/dL (12.0-15.5) Hematocrit 39.8 % (36.0-47.0) Mean Corpuscular Volume 79 fL (79-100) Mean Corpuscular Hemoglobin 26 pg (25-35) Mean Corpuscular Hemoglobin Concent 33 g/dL (31-37) Red Cell Distribution Width 16.5 % (11.5-14.5) Platelet Count 299 x10^3/uL (140-400) Neutrophils (%) (Auto) 75 % (31-73) Lymphocytes (%) (Auto) 17 % (24-48) Monocytes (%) (Auto) 6 % (0-9) Eosinophils (%) (Auto) 2 % (0-3) Basophils (%) (Auto) 2 % (0-3) Neutrophils # (Auto) 8.3 x10^3/uL (1.8-7.7) Lymphocytes # (Auto) 1.9 x10^3/uL (1.0-4.8) Monocytes # (Auto) 0.7 x10^3/uL (0.0-1.1) Eosinophils # (Auto) 0.2 x10^3/uL (0.0-0.7) Basophils # (Auto) 0.2 x10^3/uL (0.0-0.2) Sodium Level 141 mmol/L (136-145) Potassium Level 3.5 mmol/L (3.5-5.1) Chloride Level 104 mmol/L (98-107) Carbon Dioxide Level 22 mmol/L (21-32) Anion Gap 15 (6-14) Blood Urea Nitrogen 47 mg/dL (7-20) Creatinine 5.3 mg/dL (0.6-1.0) Estimated GFR (Cockcroft-Gault) 9.9 BUN/Creatinine Ratio 9 (6-20) Glucose Level 34 mg/dL (70-99) Calcium Level 7.6 mg/dL (8.5-10.1) Magnesium Level 1.7 mg/dL (1.8-2.4) Total Bilirubin 0.3 mg/dL (0.2-1.0) Aspartate Amino Transf (AST/SGOT) 30 U/L (15-37) Alanine Aminotransferase (ALT/SGPT) 19 U/L (14-59) Alkaline Phosphatase 127 U/L (46-116) Troponin I Quantitative < 0.017 ng/mL (0.000-0.055) Total Protein 7.3 g/dL (6.4-8.2) Albumin 2.8 g/dL (3.4-5.0) Albumin/Globulin Ratio 0.6 (1.0-1.7) Ethyl Alcohol Level < 10 mg/dL (0-10) Test 09/29/19 05:23 09/29/19 08:07 09/29/19 11:59 Glucose (Fingerstick) 107 mg/dL (70-99) 111 mg/dL (70-99) 151 mg/dL (70-99) Laboratory Tests Test 09/28/19 22:48 09/28/19 22:59 09/28/19 23:06 09/29/19 02:22 Glucose (Fingerstick) 30 mg/dL (70-99) 126 mg/dL (70-99) 81 mg/dL (70-99) White Blood Count 11.2 x10^3/uL (4.0-11.0) Red Blood Count 5.06 x10^6/uL (3.50-5.40) Hemoglobin 12.9 g/dL (12.0-15.5) Hematocrit 39.8 % (36.0-47.0) Mean Corpuscular Volume 79 fL (79-100) Mean Corpuscular Hemoglobin 26 pg (25-35) Mean Corpuscular Hemoglobin Concent 33 g/dL (31-37) Red Cell Distribution Width 16.5 % (11.5-14.5) Platelet Count 299 x10^3/uL (140-400) Neutrophils (%) (Auto) 75 % (31-73) Lymphocytes (%) (Auto) 17 % (24-48) Monocytes (%) (Auto) 6 % (0-9) Eosinophils (%) (Auto) 2 % (0-3) Basophils (%) (Auto) 2 % (0-3) Neutrophils # (Auto) 8.3 x10^3/uL (1.8-7.7) Lymphocytes # (Auto) 1.9 x10^3/uL (1.0-4.8) Monocytes # (Auto) 0.7 x10^3/uL (0.0-1.1) Eosinophils # (Auto) 0.2 x10^3/uL (0.0-0.7) Basophils # (Auto) 0.2 x10^3/uL (0.0-0.2) Sodium Level 141 mmol/L (136-145) Potassium Level 3.5 mmol/L (3.5-5.1) Chloride Level 104 mmol/L (98-107) Carbon Dioxide Level 22 mmol/L (21-32) Anion Gap 15 (6-14) Blood Urea Nitrogen 47 mg/dL (7-20) Creatinine 5.3 mg/dL (0.6-1.0) Estimated GFR (Cockcroft-Gault) 9.9 BUN/Creatinine Ratio 9 (-20) Glucose Level 34 mg/dL (70-99) Calcium Level 7.6 mg/dL (8.5-10.1) Magnesium Level 1.7 mg/dL (1.8-2.4) Total Bilirubin 0.3 mg/dL (0.2-1.0) Aspartate Amino Transf (AST/SGOT) 30 U/L (15-37) Alanine Aminotransferase (ALT/SGPT) 19 U/L (14-59) Alkaline Phosphatase 127 U/L (46-116) Troponin I Quantitative < 0.017 ng/mL (0.000-0.055) Total Protein 7.3 g/dL (6.4-8.2) Albumin 2.8 g/dL (3.4-5.0) Albumin/Globulin Ratio 0.6 (1.0-1.7) Ethyl Alcohol Level < 10 mg/dL (0-10) Test 09/29/19 05:23 09/29/19 08:07 09/29/19 11:59 Glucose (Fingerstick) 107 mg/dL (70-99) 111 mg/dL (70-99) 151 mg/dL (70-99) VTE Prophylaxis Ordered VTE Prophylaxis Devices: No VTE Pharmacological Prophylaxi: Yes Assessment/Plan Assessment/Plan symptomatic hypoglycemia, metabolic encephalopathy DM2, oral agents only morbid obesity, BMI > 40 acute on chronic renal failure, has caused accumulation of DM2 med, and then the hypoglycemia consult renal, cont IV fluid hypoxia, pulm following Justicifation of Admission Dx: Justifications for Admission: Justification of Admission Dx: Yes Acute Renal Failure: Serum Cr > 4mg/dL ANDREW BELL MD Sep 29, 2019 13:44
[2019-09-29] MEDS: HEPARIN for SUB-Q USE 5,000 UNIT/ML VIAL. SQ SCH ×2 (14:00→20:26)
[2019-09-29 14:29] VITALS: BP 143/70
--- NOTE | 2019-09-29 16:15 | RAD ---
Exam: Ultrasound renal complete Indication: Acute kidney injury Technique: Real-time grayscale and color Doppler images of the kidneys were obtained by the department chemical checker. Comparisons: CT same day FINDINGS: Exam is mildly limited secondary to body habitus. Right kidney measures 11.6 cm in length. No hydronephrosis. There is a hypoattenuating cystic lesion at the lower pole of the right kidney measuring approximately 1.6 cm in diameter likely representing simple cysts. Left kidney measures 10.7 cm in length. No hydronephrosis. Several small hypoattenuating cystic lesions within the left kidney largest measuring 2 cm in diameter representing simple cysts. Other smaller lesion measuring approximately 1.2 cm at the lower pole of the left kidney is not completely evaluated on this study. Bladder is decompressed not well evaluated. IMPRESSION: 1. No hydronephrosis. 2. Renal cysts as described above, one of which is mildly complex. Further evaluation with nonemergent renal protocol CT or MRI is recommended nonemergent/outpatient setting. Electronically signed by: Eugenio Watkins MD (09/29/2019 4:12 PM) [id number]
[2019-09-29 17:58] LABS: BILIRUBIN,URINE NEGATIVE (NEG); CLARITY,URINE CLEAR; COLOR,URINE YELLOW; NITRITE,URINE NEGATIVE (NEG); PH,URINE 5.5 (<5.0-8.0); PROTEIN,URINE >=300 mg/dL (NEG-TRACE); UROBILINOGEN,URINE 0.2 mg/dL (0.2 mg/dL)
[2019-09-29 18:07] LABS: BACTERIA,URINE FEW /HPF (0-FEW); RBC,URINE OCC /HPF (0-2); SQUAMOUS EPITHELIAL CELL,UR FEW /LPF; YEAST,URINE PRESENT /HPF
[2019-09-29 18:30] VITALS: BP 163/87
[2019-09-29 23:04] VITALS: BP 168/93
[2019-09-30] VITALS (7 sets, daily range): BP systolic 162–200; BP diastolic 86–105
[2019-09-30 04:50] LABS: BASO # 0.1 x10^3/uL (0.0-0.2); BASO % 1 % (0-3); EOS # 0.3 x10^3/uL (0.0-0.7); EOS % 3 % (0-3); HEMOGLOBIN 12.4 g/dL (12.0-15.5); LYMPH # 2.2 x10^3/uL (1.0-4.8); LYMPH % 28 % (24-48); MEAN CORPUSCULAR HEMOGLOBIN 25 pg (25-35); MEAN CORPUSCULAR HGB CONC 32 g/dL (31-37); MEAN CORPUSCULAR VOLUME 79 fL (79-100); MONO # 0.5 x10^3/uL (0.0-1.1); MONO % 7 % (0-9); NEUT # 4.6 x10^3/uL (1.8-7.7); NEUT % 60 % (31-73); PLATELET COUNT 213 x10^3/uL (140-400); RED BLOOD COUNT 4.93 x10^6/uL (3.50-5.40); RED CELL DISTRIBUTION WIDTH 16.6 % (11.5-14.5); WHITE BLOOD COUNT 7.7 x10^3/uL (4.0-11.0)
[2019-09-30 06:52] LABS: CALCIUM 7.7 mg/dL (8.5-10.1); CREATININE 5.3 mg/dL (0.6-1.0); GFR 9.9; POTASSIUM 3.1 mmol/L (3.5-5.1)
[2019-09-30] MEDS: IPRATRPIUM/ALBUTEROL 0.5/2.5MG 3 ML NEBU. NEB SCH ×4 (07:14→18:51)
[2019-09-30] MEDS: BUDESONIDE 0.5 MG/2 ML NEBU. NEB SCH ×2 (07:14→18:51)
[2019-09-30] MEDS: ASPIRIN ENTERIC COATED 81 MG TABLET.DR. PO SCH (08:53)
[2019-09-30] MEDS: cloNIDine HCL 0.1 MG TABLET PO SCH ×2 (08:53→20:17)
[2019-09-30] MEDS: PANTOPRAZOLE 40 MG TABLET.DR. PO SCH (08:53)
[2019-09-30] MEDS: amLODIPine BESYLATE 10 MG TABLET PO SCH (08:53)
[2019-09-30] MEDS: HEPARIN for SUB-Q USE 5,000 UNIT/ML VIAL. SQ SCH ×2 (08:58→20:23)
[2019-09-30] MEDS: SODIUM BICARBONATE VIAL 50 MEQ in IV 1/2 NORMAL SALINE 1,000 ML IV SCH ×2 (09:02→21:00)
[2019-09-30] MEDS ORDERED: MAGNESIUM SULFATE 1GM 100 ML IV ONE (10:15)
[2019-09-30] MEDS ORDERED: POTASSIUM CHLORIDE 20 MEQ TABLET.ER. PO ONE (10:15)
--- NOTE | 2019-09-30 10:21 | NUR ---
SS following up with discharge planning. SS reviewed pt chart and discussed with pt RN. Pt having potassium and magnesium replaced today. Pt is currently on room air. Discharge plan is to home when medically stable. SS will continue to follow for discharge planning.
--- NOTE | 2019-09-30 10:26 | PDOC ---
PULMONARY PROGRESS NOTES Subjective Remains on room air denies SOA or cough or CP Vitals Vital Signs Date Time Temp Pulse Resp B/P (MAP) Pulse Ox O2 Delivery O2 Flow Rate FiO2 09/30/19 08:53 91 186/95 09/30/19 08:00 Room Air 09/30/19 07:17 98 09/30/19 07:15 98.0 20 98.0 09/30/19 03:15 2.0 ROS: No Nausea, No Chest Pain, No Abdominal Pain, No Increase Cough General: Alert, Oriented X4 Lungs: Clear Cardiovascular: S1, S2 Abdomen: Soft, Non-tender, Other (obese) Neuro Exam: Alert, Oriented Extremities: Other (trace BLE ) Skin: Warm, Dry Labs Laboratory Tests Test 09/28/19 22:48 09/28/19 22:59 09/28/19 23:06 09/29/19 02:22 Glucose (Fingerstick) 30 mg/dL (70-99) 126 mg/dL (70-99) 81 mg/dL (70-99) White Blood Count 11.2 x10^3/uL (4.0-11.0) Red Blood Count 5.06 x10^6/uL (3.50-5.40) Hemoglobin 12.9 g/dL (12.0-15.5) Hematocrit 39.8 % (36.0-47.0) Mean Corpuscular Volume 79 fL (79-100) Mean Corpuscular Hemoglobin 26 pg (25-35) Mean Corpuscular Hemoglobin Concent 33 g/dL (31-37) Red Cell Distribution Width 16.5 % (11.5-14.5) Platelet Count 299 x10^3/uL (140-400) Neutrophils (%) (Auto) 75 % (31-73) Lymphocytes (%) (Auto) 17 % (24-48) Monocytes (%) (Auto) 6 % (0-9) Eosinophils (%) (Auto) 2 % (0-3) Basophils (%) (Auto) 2 % (0-3) Neutrophils # (Auto) 8.3 x10^3/uL (1.8-7.7) Lymphocytes # (Auto) 1.9 x10^3/uL (1.0-4.8) Monocytes # (Auto) 0.7 x10^3/uL (0.0-1.1) Eosinophils # (Auto) 0.2 x10^3/uL (0.0-0.7) Basophils # (Auto) 0.2 x10^3/uL (0.0-0.2) Sodium Level 141 mmol/L (136-145) Potassium Level 3.5 mmol/L (3.5-5.1) Chloride Level 104 mmol/L (98-107) Carbon Dioxide Level 22 mmol/L (21-32) Anion Gap 15 (6-14) Blood Urea Nitrogen 47 mg/dL (7-20) Creatinine 5.3 mg/dL (0.6-1.0) Estimated GFR (Cockcroft-Gault) 9.9 BUN/Creatinine Ratio 9 (6-20) Glucose Level 34 mg/dL (70-99) Calcium Level 7.6 mg/dL (8.5-10.1) Magnesium Level 1.7 mg/dL (1.8-2.4) Total Bilirubin 0.3 mg/dL (0.2-1.0) Aspartate Amino Transf (AST/SGOT) 30 U/L (15-37) Alanine Aminotransferase (ALT/SGPT) 19 U/L (14-59) Alkaline Phosphatase 127 U/L (46-116) Troponin I Quantitative < 0.017 ng/mL (0.000-0.055) Total Protein 7.3 g/dL (6.4-8.2) Albumin 2.8 g/dL (3.4-5.0) Albumin/Globulin Ratio 0.6 (1.0-1.7) Ethyl Alcohol Level < 10 mg/dL (0-10) Test 09/29/19 05:23 09/29/19 08:07 09/29/19 11:59 09/29/19 17:45 Glucose (Fingerstick) 107 mg/dL (70-99) 111 mg/dL (70-99) 151 mg/dL (70-99) Urine Collection Type Unknown Urine Color Yellow Urine Clarity Clear Urine pH 5.5 (<5.0-8.0) Urine Specific [place] 1.015 (1.000-1.030) Urine Protein >=300 mg/dL (NEG-TRACE) Urine Glucose (UA) Negative mg/dL (NEG) Urine Ketones (Stick) Negative mg/dL (NEG) Urine Blood Negative (NEG) Urine Nitrite Negative (NEG) Urine Bilirubin Negative (NEG) Urine Urobilinogen Dipstick 0.2 mg/dL (0.2 mg/dL) Urine Leukocyte Esterase Negative (NEG) Urine RBC Occ /HPF (0-2) Urine WBC 1-4 /HPF (0-4) Urine Squamous Epithelial Cells Few /LPF Urine Bacteria Few /HPF (0-FEW) Urine Yeast Present /HPF Test 09/29/19 20:22 09/30/19 04:25 09/30/19 06:30 09/30/19 07:20 Glucose (Fingerstick) 193 mg/dL (70-99) 127 mg/dL (70-99) White Blood Count 7.7 x10^3/uL (4.0-11.0) Red Blood Count 4.93 x10^6/uL (3.50-5.40) Hemoglobin 12.4 g/dL (12.0-15.5) Hematocrit 39.0 % (36.0-47.0) Mean Corpuscular Volume 79 fL (79-100) Mean Corpuscular Hemoglobin 25 pg (25-35) Mean Corpuscular Hemoglobin Concent 32 g/dL (31-37) Red Cell Distribution Width 16.6 % (11.5-14.5) Platelet Count 213 x10^3/uL (140-400) Neutrophils (%) (Auto) 60 % (31-73) Lymphocytes (%) (Auto) 28 % (24-48) Monocytes (%) (Auto) 7 % (0-9) Eosinophils (%) (Auto) 3 % (0-3) Basophils (%) (Auto) 1 % (0-3) Neutrophils # (Auto) 4.6 x10^3/uL (1.8-7.7) Lymphocytes # (Auto) 2.2 x10^3/uL (1.0-4.8) Monocytes # (Auto) 0.5 x10^3/uL (0.0-1.1) Eosinophils # (Auto) 0.3 x10^3/uL (0.0-0.7) Basophils # (Auto) 0.1 x10^3/uL (0.0-0.2) Sodium Level 140 mmol/L (136-145) Potassium Level 3.1 mmol/L (3.5-5.1) Chloride Level 104 mmol/L (98-107) Carbon Dioxide Level 25 mmol/L (21-32) Anion Gap 11 (6-14) Blood Urea Nitrogen 46 mg/dL (7-20) Creatinine 5.3 mg/dL (0.6-1.0) Estimated GFR (Cockcroft-Gault) 9.9 Glucose Level 141 mg/dL (70-99) Calcium Level 7.7 mg/dL (8.5-10.1) Magnesium Level 1.5 mg/dL (1.8-2.4) Laboratory Tests Test 09/29/19 11:59 09/29/19 17:45 09/29/19 20:22 09/30/19 04:25 Glucose (Fingerstick) 151 mg/dL (70-99) 193 mg/dL (70-99) Urine Collection Type Unknown Urine Color Yellow Urine Clarity Clear Urine pH 5.5 (<5.0-8.0) Urine Specific [place] 1.015 (1.000-1.030) Urine Protein >=300 mg/dL (NEG-TRACE) Urine Glucose (UA) Negative mg/dL (NEG) Urine Ketones (Stick) Negative mg/dL (NEG) Urine Blood Negative (NEG) Urine Nitrite Negative (NEG) Urine Bilirubin Negative (NEG) Urine Urobilinogen Dipstick 0.2 mg/dL (0.2 mg/dL) Urine Leukocyte Esterase Negative (NEG) Urine RBC Occ /HPF (0-2) Urine WBC 1-4 /HPF (0-4) Urine Squamous Epithelial Cells Few /LPF Urine Bacteria Few /HPF (0-FEW) Urine Yeast Present /HPF White Blood Count 7.7 x10^3/uL (4.0-11.0) Red Blood Count 4.93 x10^6/uL (3.50-5.40) Hemoglobin 12.4 g/dL (12.0-15.5) Hematocrit 39.0 % (36.0-47.0) Mean Corpuscular Volume 79 fL (79-100) Mean Corpuscular Hemoglobin 25 pg (25-35) Mean Corpuscular Hemoglobin Concent 32 g/dL (31-37) Red Cell Distribution Width 16.6 % (11.5-14.5) Platelet Count 213 x10^3/uL (140-400) Neutrophils (%) (Auto) 60 % (31-73) Lymphocytes (%) (Auto) 28 % (24-48) Monocytes (%) (Auto) 7 % (0-9) Eosinophils (%) (Auto) 3 % (0-3) Basophils (%) (Auto) 1 % (0-3) Neutrophils # (Auto) 4.6 x10^3/uL (1.8-7.7) Lymphocytes # (Auto) 2.2 x10^3/uL (1.0-4.8) Monocytes # (Auto) 0.5 x10^3/uL (0.0-1.1) Eosinophils # (Auto) 0.3 x10^3/uL (0.0-0.7) Basophils # (Auto) 0.1 x10^3/uL (0.0-0.2) Test 09/30/19 06:30 09/30/19 07:20 Sodium Level 140 mmol/L (136-145) Potassium Level 3.1 mmol/L (3.5-5.1) Chloride Level 104 mmol/L (98-107) Carbon Dioxide Level 25 mmol/L (21-32) Anion Gap 11 (6-14) Blood Urea Nitrogen 46 mg/dL (7-20) Creatinine 5.3 mg/dL (0.6-1.0) Estimated GFR (Cockcroft-Gault) 9.9 Glucose Level 141 mg/dL (70-99) Calcium Level 7.7 mg/dL (8.5-10.1) Magnesium Level 1.5 mg/dL (1.8-2.4) Glucose (Fingerstick) 127 mg/dL (70-99) Medications Active Scripts Medications Dose Route/Sig Max Daily Dose Days Date Category Protonix (Pantoprazole Sodium) 40 Mg Tablet. 40 Mg PO DAILYAC 09/29/19 Reported Catapres (Clonidine Hcl) 0.1 Mg Tablet 1 Tab PO BID 09/29/19 Reported Aspirin Ec (Aspirin) 81 Mg Tablet. 81 Mg PO DAILYWBKFT 30 07/28/18 Rx Trelegy Ellipta 100-62.5-25 (Fluticasone/Umeclidin/Vilanter) 1 Each Blst.w.dev 1 Each IH BID 07/27/18 Reported Losartan-Hctz 100-25 Mg Tab (Losartan/Hydrochlorothiazide) 1 Each Tablet 1 Each PO DAILY 07/27/18 Reported Albuterol Sulfate Hfa Inhaler (Albuterol Sulfate) 8.5 Gm Hfa.aer.ad 8.5 Gm IH 07/06/13 Reported Amlodipine Besylate 10 Mg Tablet 10 Mg PO DAILY 07/06/13 Reported Glimepiride 1 Mg Tablet 2 Mg PO BIDWMEALS 07/06/13 Reported Comments CXR 09/28/19 Impression: Enlargement of the cardiomediastinal silhouette with resultant obscuration of the left lower lung. No other noteworthy abnormality of the chest. Impression . IMPRESSION: 1. Acute hypoxic respiratory failure secondary to chronic obstructive pulmonary disease exacerbation- resolved 2. Morbid obesity also contributing to chronic hypoxia. 3. Suspected obstructive sleep apnea. 4. Acute kidney injury- worsening RECOMMENDATIONS: 1. Continue present oxygen. 2. Continue DuoNeb along with Pulmicort. 3. Follow renal recommendation. 4. The patient will need a 6-minute walk test at the time of discharge. 5. PFTs as an outpatient. 6. Consider sleep study as an outpatient. 7. Discussed with Dr. Stern and RN. We will follow along with you. Plan . RECOMMENDATIONS: 1. Continue present oxygen, now on room air, stable from pulmonary stand point . 2. Continue DuoNeb /Pulmicort. 3. Follow renal recommendations 5. PFTs as an outpatient and Consider sleep study as an outpatient. 6. HTN per PCP 7. Discussed with RN. ADRIAN CERNA MD Sep 30, 2019 10:26
--- NOTE | 2019-09-30 10:33 | PDOC ---
PROGRESS NOTES Chief Complaint Chief Complaint symptomatic hypoglycemia, metabolic encephalopathy DM2, oral agents only morbid obesity, BMI > 40 acute on chronic renal failure, has caused accumulation of DM2 med, and then the hypoglycemia renal failure on CKD, cont current fluid, consult renal, cont IV fluid hypoxia, pulm following History of Present Illness History of Present Illness may need dialysis, but making good urine, potassium low, will replace, may be improving Vitals Vitals Vital Signs Date Time Temp Pulse Resp B/P (MAP) Pulse Ox O2 Delivery O2 Flow Rate FiO2 09/30/19 08:53 91 186/95 09/30/19 08:00 Room Air 09/30/19 07:17 98 09/30/19 07:15 98.0 20 98.0 09/30/19 03:15 2.0 Physical Exam General: Alert, Cooperative, mild distress Heart: Regular rate Lungs: Clear Abdomen: Normal bowel sounds, Soft, No tenderness Extremities: No cyanosis, Normal pulses, Other (tr edema, dry skin) Skin: No breakdown, No significant lesion Labs LABS Laboratory Tests Test 09/29/19 11:59 09/29/19 17:45 09/29/19 20:22 09/30/19 04:25 Glucose (Fingerstick) 151 mg/dL (70-99) 193 mg/dL (70-99) Urine Collection Type Unknown Urine Color Yellow Urine Clarity Clear Urine pH 5.5 (<5.0-8.0) Urine Specific [place] 1.015 (1.000-1.030) Urine Protein >=300 mg/dL (NEG-TRACE) Urine Glucose (UA) Negative mg/dL (NEG) Urine Ketones (Stick) Negative mg/dL (NEG) Urine Blood Negative (NEG) Urine Nitrite Negative (NEG) Urine Bilirubin Negative (NEG) Urine Urobilinogen Dipstick 0.2 mg/dL (0.2 mg/dL) Urine Leukocyte Esterase Negative (NEG) Urine RBC Occ /HPF (0-2) Urine WBC 1-4 /HPF (0-4) Urine Squamous Epithelial Cells Few /LPF Urine Bacteria Few /HPF (0-FEW) Urine Yeast Present /HPF White Blood Count 7.7 x10^3/uL (4.0-11.0) Red Blood Count 4.93 x10^6/uL (3.50-5.40) Hemoglobin 12.4 g/dL (12.0-15.5) Hematocrit 39.0 % (36.0-47.0) Mean Corpuscular Volume 79 fL (79-100) Mean Corpuscular Hemoglobin 25 pg (25-35) Mean Corpuscular Hemoglobin Concent 32 g/dL (31-37) Red Cell Distribution Width 16.6 % (11.5-14.5) Platelet Count 213 x10^3/uL (140-400) Neutrophils (%) (Auto) 60 % (31-73) Lymphocytes (%) (Auto) 28 % (24-48) Monocytes (%) (Auto) 7 % (0-9) Eosinophils (%) (Auto) 3 % (0-3) Basophils (%) (Auto) 1 % (0-3) Neutrophils # (Auto) 4.6 x10^3/uL (1.8-7.7) Lymphocytes # (Auto) 2.2 x10^3/uL (1.0-4.8) Monocytes # (Auto) 0.5 x10^3/uL (0.0-1.1) Eosinophils # (Auto) 0.3 x10^3/uL (0.0-0.7) Basophils # (Auto) 0.1 x10^3/uL (0.0-0.2) Test 09/30/19 06:30 09/30/19 07:20 Sodium Level 140 mmol/L (136-145) Potassium Level 3.1 mmol/L (3.5-5.1) Chloride Level 104 mmol/L (98-107) Carbon Dioxide Level 25 mmol/L (21-32) Anion Gap 11 (6-14) Blood Urea Nitrogen 46 mg/dL (7-20) Creatinine 5.3 mg/dL (0.6-1.0) Estimated GFR (Cockcroft-Gault) 9.9 Glucose Level 141 mg/dL (70-99) Calcium Level 7.7 mg/dL (8.5-10.1) Magnesium Level 1.5 mg/dL (1.8-2.4) Glucose (Fingerstick) 127 mg/dL (70-99) Assessment and Plan Assessmemt and Plan Problems Medical Problems: (1) [id number] kidney injury Status: Acute (2) Adverse effect of sulfonylurea Status: Acute (3) Hypoglycemia Status: Acute Comment Review of Relevant I have reviewed the following items munir (where applicable) has been applied. Labs Laboratory Tests Test 09/28/19 22:48 09/28/19 22:59 09/28/19 23:06 09/29/19 02:22 Glucose (Fingerstick) 30 mg/dL (70-99) 126 mg/dL (70-99) 81 mg/dL (70-99) White Blood Count 11.2 x10^3/uL (4.0-11.0) Red Blood Count 5.06 x10^6/uL (3.50-5.40) Hemoglobin 12.9 g/dL (12.0-15.5) Hematocrit 39.8 % (36.0-47.0) Mean Corpuscular Volume 79 fL (79-100) Mean Corpuscular Hemoglobin 26 pg (25-35) Mean Corpuscular Hemoglobin Concent 33 g/dL (31-37) Red Cell Distribution Width 16.5 % (11.5-14.5) Platelet Count 299 x10^3/uL (140-400) Neutrophils (%) (Auto) 75 % (31-73) Lymphocytes (%) (Auto) 17 % (24-48) Monocytes (%) (Auto) 6 % (0-9) Eosinophils (%) (Auto) 2 % (0-3) Basophils (%) (Auto) 2 % (0-3) Neutrophils # (Auto) 8.3 x10^3/uL (1.8-7.7) Lymphocytes # (Auto) 1.9 x10^3/uL (1.0-4.8) Monocytes # (Auto) 0.7 x10^3/uL (0.0-1.1) Eosinophils # (Auto) 0.2 x10^3/uL (0.0-0.7) Basophils # (Auto) 0.2 x10^3/uL (0.0-0.2) Sodium Level 141 mmol/L (136-145) Potassium Level 3.5 mmol/L (3.5-5.1) Chloride Level 104 mmol/L (98-107) Carbon Dioxide Level 22 mmol/L (21-32) Anion Gap 15 (6-14) Blood Urea Nitrogen 47 mg/dL (7-20) Creatinine 5.3 mg/dL (0.6-1.0) Estimated GFR (Cockcroft-Gault) 9.9 BUN/Creatinine Ratio 9 (6-20) Glucose Level 34 mg/dL (70-99) Calcium Level 7.6 mg/dL (8.5-10.1) Magnesium Level 1.7 mg/dL (1.8-2.4) Total Bilirubin 0.3 mg/dL (0.2-1.0) Aspartate Amino Transf (AST/SGOT) 30 U/L (15-37) Alanine Aminotransferase (ALT/SGPT) 19 U/L (14-59) Alkaline Phosphatase 127 U/L (46-116) Troponin I Quantitative < 0.017 ng/mL (0.000-0.055) Total Protein 7.3 g/dL (6.4-8.2) Albumin 2.8 g/dL (3.4-5.0) Albumin/Globulin Ratio 0.6 (1.0-1.7) Ethyl Alcohol Level < 10 mg/dL (0-10) Test 09/29/19 05:23 09/29/19 08:07 09/29/19 11:59 09/29/19 17:45 Glucose (Fingerstick) 107 mg/dL (70-99) 111 mg/dL (70-99) 151 mg/dL (70-99) Urine Collection Type Unknown Urine Color Yellow Urine Clarity Clear Urine pH 5.5 (<5.0-8.0) Urine Specific [place] 1.015 (1.000-1.030) Urine Protein >=300 mg/dL (NEG-TRACE) Urine Glucose (UA) Negative mg/dL (NEG) Urine Ketones (Stick) Negative mg/dL (NEG) Urine Blood Negative (NEG) Urine Nitrite Negative (NEG) Urine Bilirubin Negative (NEG) Urine Urobilinogen Dipstick 0.2 mg/dL (0.2 mg/dL) Urine Leukocyte Esterase Negative (NEG) Urine RBC Occ /HPF (0-2) Urine WBC 1-4 /HPF (0-4) Urine Squamous Epithelial Cells Few /LPF Urine Bacteria Few /HPF (0-FEW) Urine Yeast Present /HPF Test 09/29/19 20:22 09/30/19 04:25 09/30/19 06:30 09/30/19 07:20 Glucose (Fingerstick) 193 mg/dL (70-99) 127 mg/dL (70-99) White Blood Count 7.7 x10^3/uL (4.0-11.0) Red Blood Count 4.93 x10^6/uL (3.50-5.40) Hemoglobin 12.4 g/dL (12.0-15.5) Hematocrit 39.0 % (36.0-47.0) Mean Corpuscular Volume 79 fL (79-100) Mean Corpuscular Hemoglobin 25 pg (25-35) Mean Corpuscular Hemoglobin Concent 32 g/dL (31-37) Red Cell Distribution Width 16.6 % (11.5-14.5) Platelet Count 213 x10^3/uL (140-400) Neutrophils (%) (Auto) 60 % (31-73) Lymphocytes (%) (Auto) 28 % (24-48) Monocytes (%) (Auto) 7 % (0-9) Eosinophils (%) (Auto) 3 % (0-3) Basophils (%) (Auto) 1 % (0-3) Neutrophils # (Auto) 4.6 x10^3/uL (1.8-7.7) Lymphocytes # (Auto) 2.2 x10^3/uL (1.0-4.8) Monocytes # (Auto) 0.5 x10^3/uL (0.0-1.1) Eosinophils # (Auto) 0.3 x10^3/uL (0.0-0.7) Basophils # (Auto) 0.1 x10^3/uL (0.0-0.2) Sodium Level 140 mmol/L (136-145) Potassium Level 3.1 mmol/L (3.5-5.1) Chloride Level 104 mmol/L (98-107) Carbon Dioxide Level 25 mmol/L (21-32) Anion Gap 11 (6-14) Blood Urea Nitrogen 46 mg/dL (7-20) Creatinine 5.3 mg/dL (0.6-1.0) Estimated GFR (Cockcroft-Gault) 9.9 Glucose Level 141 mg/dL (70-99) Calcium Level 7.7 mg/dL (8.5-10.1) Magnesium Level 1.5 mg/dL (1.8-2.4) Laboratory Tests Test 09/29/19 11:59 09/29/19 17:45 09/29/19 20:22 09/30/19 04:25 Glucose (Fingerstick) 151 mg/dL (70-99) 193 mg/dL (70-99) Urine Collection Type Unknown Urine Color Yellow Urine Clarity Clear Urine pH 5.5 (<5.0-8.0) Urine Specific [place] 1.015 (1.000-1.030) Urine Protein >=300 mg/dL (NEG-TRACE) Urine Glucose (UA) Negative mg/dL (NEG) Urine Ketones (Stick) Negative mg/dL (NEG) Urine Blood Negative (NEG) Urine Nitrite Negative (NEG) Urine Bilirubin Negative (NEG) Urine Urobilinogen Dipstick 0.2 mg/dL (0.2 mg/dL) Urine Leukocyte Esterase Negative (NEG) Urine RBC Occ /HPF (0-2) Urine WBC 1-4 /HPF (0-4) Urine Squamous Epithelial Cells Few /LPF Urine Bacteria Few /HPF (0-FEW) Urine Yeast Present /HPF White Blood Count 7.7 x10^3/uL (4.0-11.0) Red Blood Count 4.93 x10^6/uL (3.50-5.40) Hemoglobin 12.4 g/dL (12.0-15.5) Hematocrit 39.0 % (36.0-47.0) Mean Corpuscular Volume 79 fL (79-100) Mean Corpuscular Hemoglobin 25 pg (25-35) Mean Corpuscular Hemoglobin Concent 32 g/dL (31-37) Red Cell Distribution Width 16.6 % (11.5-14.5) Platelet Count 213 x10^3/uL (140-400) Neutrophils (%) (Auto) 60 % (31-73) Lymphocytes (%) (Auto) 28 % (24-48) Monocytes (%) (Auto) 7 % (0-9) Eosinophils (%) (Auto) 3 % (0-3) Basophils (%) (Auto) 1 % (0-3) Neutrophils # (Auto) 4.6 x10^3/uL (1.8-7.7) Lymphocytes # (Auto) 2.2 x10^3/uL (1.0-4.8) Monocytes # (Auto) 0.5 x10^3/uL (0.0-1.1) Eosinophils # (Auto) 0.3 x10^3/uL (0.0-0.7) Basophils # (Auto) 0.1 x10^3/uL (0.0-0.2) Test 09/30/19 06:30 09/30/19 07:20 Sodium Level 140 mmol/L (136-145) Potassium Level 3.1 mmol/L (3.5-5.1) Chloride Level 104 mmol/L (98-107) Carbon Dioxide Level 25 mmol/L (21-32) Anion Gap 11 (6-14) Blood Urea Nitrogen 46 mg/dL (7-20) Creatinine 5.3 mg/dL (0.6-1.0) Estimated GFR (Cockcroft-Gault) 9.9 Glucose Level 141 mg/dL (70-99) Calcium Level 7.7 mg/dL (8.5-10.1) Magnesium Level 1.5 mg/dL (1.8-2.4) Glucose (Fingerstick) 127 mg/dL (70-99) Medications Current Medications Glucose (Insta-Glucose) 15 gm STK-MED ONCE .ROUTE ; Start 09/28/19 at 22:52; Stop 09/28/19 at 22:52; Status DC Dextrose (Dextrose 50%-Water Syringe) 25 gm STK-MED ONCE IV ; Start 09/28/19 at 22:52; Stop 09/28/19 at 22:52; Status DC Dextrose (Dextrose 50%-Water Syringe) 25 gm 1X ONCE IV Last administered on 09/28/19at 23:10; Start 09/28/19 at 23:15; Stop 09/28/19 at 23:16; Status DC Sodium Chloride 1,000 ml @ 1,000 mls/hr 1X ONCE IV ; Start 09/29/19 at 00:00; Stop 09/29/19 at 01:10; Status DC Dextrose (Dextrose 50%-Water Syringe) 25 gm 1X ONCE IV Last administered on at 00:24; Start 09/29/19 at 00:30; Stop 09/29/19 at 00:31; Status DC Dextrose 1,000 ml @ 150 mls/hr 1X ONCE IV Last administered on 09/29/19at 00:30; Start 09/29/19 at 00:30; Stop 09/29/19 at 07:09; Status DC Glucose (Insta-Glucose) 15 gm 1X ONCE PO Last administered on 09/29/19at 00:21; Start 09/29/19 at 00:30; Stop 09/29/19 at 00:31; Status DC Ondansetron HCl (Zofran) 4 mg PRN Q8HRS PRN IV NAUSEA/VOMITING; Start 09/29/19 at 04:45; Stop 09/30/19 at 04:44; Status DC Amlodipine Besylate (Norvasc) 10 mg DAILY PO Last administered on 09/30/19 08:53; Start 09/29/19 at 09:00 Aspirin (Ecotrin) 81 mg DAILYWBKFT PO Last administered on 09/30/19at 08:53; Start 09/29/19 at 09:00 Clonidine HCl (Catapres) 0.1 mg BID PO Last administered on 09/30/19at 08:53; Start 09/29/19 at 09:00 Pantoprazole Sodium (Protonix) 40 mg DAILYAC PO Last administered on 09/30/19 08:53; Start 09/29/19 at 09:00 Non-Formulary Medication (Fluticasone/ Umeclidin/ Vilanter (Trelegy Ellipta 100-62.5-25)) 1 each BID IH ; Start 09/29/19 at 09:00; Status UNV Albuterol/ Ipratropium (Duoneb) 3 ml RTQID NEB Last administered on 09/30/19at 07:14; Start 09/29/19 at 09:00 Budesonide (Pulmicort) 0.5 mg RTBID NEB Last administered on 09/30/19at 07:14; Start 09/29/19 at 09:00 Sodium Bicarbonate 50 meq/Sodium Chloride 1,050 ml @ 100 mls/hr [id number] IV Last administered on 09/30/19at 09:02; Start 09/29/19 at 09:00 Heparin Sodium (Porcine) (Heparin Sodium) 5,000 unit BID SQ Last administered on 09/30/19at 08:58; Start 09/29/19 at 14:00 Magnesium Sulfate/ Dextrose 100 ml @ 100 mls/hr 1X ONCE IV ; Start 09/30/19 at 10:15; Stop 09/30/19 at 11:14 Potassium Chloride (Klor-Con) 40 meq 1X ONCE PO ; Start 09/30/19 at 10:15; Stop 09/30/19 at 10:16; Status DC Active Scripts Active Aspirin Ec (Aspirin) 81 Mg Tablet. 81 Mg PO DAILYWBKFT 30 Days Reported Protonix (Pantoprazole Sodium) 40 Mg Tablet. 40 Mg PO DAILYAC Catapres (Clonidine Hcl) 0.1 Mg Tablet 1 Tab PO BID Trelegy Ellipta 100-62.5-25 (Fluticasone/Umeclidin/Vilanter) 1 Each Blst.w.dev 1 Each IH BID Losartan-Hctz 100-25 Mg Tab (Losartan/Hydrochlorothiazide) 1 Each Tablet 1 Each PO DAILY Albuterol Sulfate Hfa Inhaler (Albuterol Sulfate) 8.5 Gm Hfa.aer.ad 8.5 Gm IH Amlodipine Besylate 10 Mg Tablet 10 Mg PO DAILY Glimepiride 1 Mg Tablet 2 Mg PO BIDWMEALS Vitals/I & O Vital Sign - Last 24 Hours 09/29/19 09/29/19 09/29/19 09/29/19 11:44 14:29 16:58 18:30 Temp 98.9 98.8 98.9 98.8 Pulse 85 67 Resp 18 18 B/P (MAP) 143/70 (94) 163/87 (112) Pulse Ox 99 95 94 94 O2 Delivery Room Air Nasal Cannula Room Air Nasal Cannula O2 Flow Rate 1.0 1.0 09/29/19 09/29/19 09/29/19 09/29/19 19:30 19:53 20:24 23:04 Temp 99.0 99.0 Pulse 67 89 Resp 20 B/P (MAP) 163/87 168/93 (118) Pulse Ox 93 92 O2 Delivery Nasal Cannula Room Air Nasal Cannula O2 Flow Rate 2.0 2.0 09/30/19 09/30/19 09/30/19 09/30/19 03:15 07:15 07:17 07:40 Temp 98.4 98.0 98.4 98.0 Pulse 86 91 Resp 20 20 B/P (MAP) 181/91 (121) 200/105 (136) 186/95 (125) Pulse Ox 94 98 98 O2 Delivery Nasal Cannula Room Air Room Air O2 Flow Rate 2.0 09/30/19 09/30/19 09/30/19 08:00 08:53 08:53 Pulse 91 91 B/P (MAP) 186/95 186/95 O2 Delivery Room Air Intake and Output 09/29/19 09/29/19 09/30/19 15:00 23:00 07:00 Intake Total 280 ml 1240 ml 1475 ml Output Total 250 ml 300 ml 300 ml Balance 30 ml 940 ml 1175 ml ANDREW BELL MD Sep 30, 2019 10:33
--- NOTE | 2019-09-30 10:57 | PDOC ---
Renal-Progress Notes Subjective Notes Notes NO SOB, FEELING BETTER History of Present Illness Hx of present illness STABLE Vitals Vitals Vital Signs Date Time Temp Pulse Resp B/P (MAP) Pulse Ox O2 Delivery O2 Flow Rate FiO2 09/30/19 10:34 98.5 68 20 165/99 (121) 97 Room Air 98.5 09/30/19 03:15 2.0 Weight Weight [ ] I.O. Intake and Output Intake and Output 09/30/19 07:00 Intake Total 2995 ml Output Total 850 ml Balance 2145 ml Intake Oral 838 ml IV Total 1057 ml Other 1100 ml Output Urine Total 850 ml Labs Labs Laboratory Tests Test 09/29/19 11:59 09/29/19 17:45 09/29/19 20:22 09/30/19 04:25 Glucose (Fingerstick) 151 mg/dL (70-99) 193 mg/dL (70-99) Urine Collection Type Unknown Urine Color Yellow Urine Clarity Clear Urine pH 5.5 (<5.0-8.0) Urine Specific [place] 1.015 (1.000-1.030) Urine Protein >=300 mg/dL (NEG-TRACE) Urine Glucose (UA) Negative mg/dL (NEG) Urine Ketones (Stick) Negative mg/dL (NEG) Urine Blood Negative (NEG) Urine Nitrite Negative (NEG) Urine Bilirubin Negative (NEG) Urine Urobilinogen Dipstick 0.2 mg/dL (0.2 mg/dL) Urine Leukocyte Esterase Negative (NEG) Urine RBC Occ /HPF (0-2) Urine WBC 1-4 /HPF (0-4) Urine Squamous Epithelial Cells Few /LPF Urine Bacteria Few /HPF (0-FEW) Urine Yeast Present /HPF White Blood Count 7.7 x10^3/uL (4.0-11.0) Red Blood Count 4.93 x10^6/uL (3.50-5.40) Hemoglobin 12.4 g/dL (12.0-15.5) Hematocrit 39.0 % (36.0-47.0) Mean Corpuscular Volume 79 fL (79-100) Mean Corpuscular Hemoglobin 25 pg (25-35) Mean Corpuscular Hemoglobin Concent 32 g/dL (31-37) Red Cell Distribution Width 16.6 % (11.5-14.5) Platelet Count 213 x10^3/uL (140-400) Neutrophils (%) (Auto) 60 % (31-73) Lymphocytes (%) (Auto) 28 % (24-48) Monocytes (%) (Auto) 7 % (0-9) Eosinophils (%) (Auto) 3 % (0-3) Basophils (%) (Auto) 1 % (0-3) Neutrophils # (Auto) 4.6 x10^3/uL (1.8-7.7) Lymphocytes # (Auto) 2.2 x10^3/uL (1.0-4.8) Monocytes # (Auto) 0.5 x10^3/uL (0.0-1.1) Eosinophils # (Auto) 0.3 x10^3/uL (0.0-0.7) Basophils # (Auto) 0.1 x10^3/uL (0.0-0.2) Test 09/30/19 06:30 09/30/19 07:20 Sodium Level 140 mmol/L (136-145) Potassium Level 3.1 mmol/L (3.5-5.1) Chloride Level 104 mmol/L (98-107) Carbon Dioxide Level 25 mmol/L (21-32) Anion Gap 11 (6-14) Blood Urea Nitrogen 46 mg/dL (7-20) Creatinine 5.3 mg/dL (0.6-1.0) Estimated GFR (Cockcroft-Gault) 9.9 Glucose Level 141 mg/dL (70-99) Calcium Level 7.7 mg/dL (8.5-10.1) Magnesium Level 1.5 mg/dL (1.8-2.4) Glucose (Fingerstick) 127 mg/dL (70-99) X-Ray X-Ray Exam: Ultrasound renal complete Indication: Acute kidney injury Technique: Real-time grayscale and color Doppler images of the kidneys were obtained by the department home appliance tech. Comparisons: CT same day FINDINGS: Exam is mildly limited secondary to body habitus. Right kidney measures 11.6 cm in length. No hydronephrosis. There is a hypoattenuating cystic lesion at the lower pole of the right kidney measuring approximately 1.6 cm in diameter likely representing simple cysts. Left kidney measures 10.7 cm in length. No hydronephrosis. Several small hypoattenuating cystic lesions within the left kidney largest measuring 2 cm in diameter representing simple cysts. Other smaller lesion measuring approximately 1.2 cm at the lower pole of the left kidney is not completely evaluated on this study. Bladder is decompressed not well evaluated. IMPRESSION: 1. No hydronephrosis. 2. Renal cysts as described above, one of which is mildly complex. Further evaluation with nonemergent renal protocol CT or MRI is recommended nonemergent/outpatient setting. Electronically signed by: Eugenio Watkins MD (09/29/2019 4:12 PM) [id number] Review of Systems Constitutional: yes: alert, oriented Ears/Nose/Throat: Yes: no symptom reported Eyes: Yes: no symptom reported Pulmonary: Yes dyspnea Cardiovascular: Yes no symptom reported Gastrointestional: Yes: no symptom reported Genitourinary: Yes: no symptom reported Musculoskeletal: Yes: no symptom reported Skin: Yes no symptom reported Psychiatric/Neurological: Yes: no symptom reported Physical Exam General Appearance: no apparent distress Skin: warm Respiratory: bilateral CTA Heart: S1S2, RRR Abdomen: soft, bowel sounds present Genitourinary: bladder flat Extremities: pulses present Neurology: alert, oriented Assessment Assessment IMP JONO WITH CR OF 5.3-UO ADEQUATE SUSPECT EXTRACELLULAR VOLUME DEPLETION CKD STAGE 4-CR AT BASELINE-RANGE OF 2.7-3.0 HYPOGLYCEMIA-RESOLVED CHRONIC DYSPNEA-SUSPECT AECOPD DM II-HYPOGLYCEMIA HTN-UNCONTROLLED PLAN HYDRATION RENAL SONOGRAM NEG EXCEPT FOR SIMPLE CYSTS AGREE WITH CLONIDINE AND NORVASC D/C ARB DIURETIC COMBINATION CONT SAME PULM EVAL WILL FOLLOW UPDATED FAMILY CONT HYDRATION THROUGH . IF NOT BETTER WILL CONSIDER DIALYSIS THURSDAY CURRENTLY NO SYMPTOMS OF UREMIA D/W ATTENDING TYRONE DONNELLY MD Sep 30, 2019 10:57
[2019-09-30] MEDS ORDERED: DEXTROSE 50% 25 GM / 50ML DISP.SYRIN. IV PRN (16:45)
[2019-09-30] MEDS: oxyCODONE/APAP 5/325 1 TAB TABLET PO PRN (17:50)
[2019-09-30] MEDS: INSULIN LISPRO 300 UNITS/3 ML VIAL. SQ SCH (17:53)
[2019-10-01 00:07] LABS: HEMOGLOBIN A1C 5.9 % (4.8-5.6)
[2019-10-01] MEDS: oxyCODONE/APAP 5/325 1 TAB TABLET PO PRN ×2 (01:26→21:58)
[2019-10-01 02:26] VITALS: BP 163/103
[2019-10-01 04:13] LABS: CALCIUM 8.1 mg/dL (8.5-10.1); CREATININE 5.1 mg/dL (0.6-1.0); GFR 10.3; PHOSPHORUS 4.7 mg/dL (2.6-4.7); POTASSIUM 3.1 mmol/L (3.5-5.1)
[2019-10-01 07:00] VITALS: BP 205/126
[2019-10-01] MEDS: BUDESONIDE 0.5 MG/2 ML NEBU. NEB SCH ×2 (07:38→20:03)
[2019-10-01] MEDS: IPRATRPIUM/ALBUTEROL 0.5/2.5MG 3 ML NEBU. NEB SCH ×4 (07:38→20:03)
[2019-10-01] MEDS: INSULIN LISPRO 300 UNITS/3 ML VIAL. SQ SCH ×3 (08:00→17:00)
[2019-10-01] MEDS: PANTOPRAZOLE 40 MG TABLET.DR. PO SCH (08:19)
[2019-10-01] MEDS: cloNIDine HCL 0.1 MG TABLET PO SCH ×3 (08:19→21:57)
[2019-10-01] MEDS: ASPIRIN ENTERIC COATED 81 MG TABLET.DR. PO SCH (08:20)
[2019-10-01] MEDS: amLODIPine BESYLATE 10 MG TABLET PO SCH (08:20)
[2019-10-01] MEDS: SODIUM BICARBONATE VIAL 50 MEQ in IV 1/2 NORMAL SALINE 1,000 ML IV SCH (08:21)
[2019-10-01] MEDS: HEPARIN for SUB-Q USE 5,000 UNIT/ML VIAL. SQ SCH ×2 (08:25→22:02)
--- NOTE | 2019-10-01 10:18 | PDOC ---
PULMONARY PROGRESS NOTES Subjective denies sob has occ cough Vitals Vital Signs Date Time Temp Pulse Resp B/P (MAP) Pulse Ox O2 Delivery O2 Flow Rate FiO2 10/01/19 08:20 90 201/123 10/01/19 08:00 Room Air 10/01/19 07:39 97 1.0 10/01/19 07:00 98.4 19 98.4 ROS: No Nausea, No Chest Pain, No Abdominal Pain, No Increase Cough General: Alert, Oriented X4 Lungs: Clear Cardiovascular: S1, S2 Abdomen: Soft, Non-tender, Other (obese) Neuro Exam: Alert, Oriented Extremities: Other (trace BLE ) Skin: Warm, Dry Labs Laboratory Tests Test 09/29/19 11:59 09/29/19 17:45 09/29/19 20:22 09/30/19 04:25 Glucose (Fingerstick) 151 mg/dL (70-99) 193 mg/dL (70-99) Urine Collection Type Unknown Urine Color Yellow Urine Clarity Clear Urine pH 5.5 (<5.0-8.0) Urine Specific [place] 1.015 (1.000-1.030) Urine Protein >=300 mg/dL (NEG-TRACE) Urine Glucose (UA) Negative mg/dL (NEG) Urine Ketones (Stick) Negative mg/dL (NEG) Urine Blood Negative (NEG) Urine Nitrite Negative (NEG) Urine Bilirubin Negative (NEG) Urine Urobilinogen Dipstick 0.2 mg/dL (0.2 mg/dL) Urine Leukocyte Esterase Negative (NEG) Urine RBC Occ /HPF (0-2) Urine WBC 1-4 /HPF (0-4) Urine Squamous Epithelial Cells Few /LPF Urine Bacteria Few /HPF (0-FEW) Urine Yeast Present /HPF White Blood Count 7.7 x10^3/uL (4.0-11.0) Red Blood Count 4.93 x10^6/uL (3.50-5.40) Hemoglobin 12.4 g/dL (12.0-15.5) Hematocrit 39.0 % (36.0-47.0) Mean Corpuscular Volume 79 fL (79-100) Mean Corpuscular Hemoglobin 25 pg (25-35) Mean Corpuscular Hemoglobin Concent 32 g/dL (31-37) Red Cell Distribution Width 16.6 % (11.5-14.5) Platelet Count 213 x10^3/uL (140-400) Neutrophils (%) (Auto) 60 % (31-73) Lymphocytes (%) (Auto) 28 % (24-48) Monocytes (%) (Auto) 7 % (0-9) Eosinophils (%) (Auto) 3 % (0-3) Basophils (%) (Auto) 1 % (0-3) Neutrophils # (Auto) 4.6 x10^3/uL (1.8-7.7) Lymphocytes # (Auto) 2.2 x10^3/uL (1.0-4.8) Monocytes # (Auto) 0.5 x10^3/uL (0.0-1.1) Eosinophils # (Auto) 0.3 x10^3/uL (0.0-0.7) Basophils # (Auto) 0.1 x10^3/uL (0.0-0.2) Hemoglobin A1c 5.9 % (4.8-5.6) Test 09/30/19 06:30 09/30/19 07:20 09/30/19 11:18 09/30/19 16:06 Sodium Level 140 mmol/L (136-145) Potassium Level 3.1 mmol/L (3.5-5.1) Chloride Level 104 mmol/L (98-107) Carbon Dioxide Level 25 mmol/L (21-32) Anion Gap 11 (6-14) Blood Urea Nitrogen 46 mg/dL (7-20) Creatinine 5.3 mg/dL (0.6-1.0) Estimated GFR (Cockcroft-Gault) 9.9 Glucose Level 141 mg/dL (70-99) Calcium Level 7.7 mg/dL (8.5-10.1) Magnesium Level 1.5 mg/dL (1.8-2.4) Glucose (Fingerstick) 127 mg/dL (70-99) 266 mg/dL (70-99) 243 mg/dL (70-99) Test 09/30/19 20:20 10/01/19 03:40 10/01/19 08:01 Glucose (Fingerstick) 282 mg/dL (70-99) 135 mg/dL (70-99) Sodium Level 140 mmol/L (136-145) Potassium Level 3.1 mmol/L (3.5-5.1) Chloride Level 102 mmol/L (98-107) Carbon Dioxide Level 27 mmol/L (21-32) Anion Gap 11 (6-14) Blood Urea Nitrogen 42 mg/dL (7-20) Creatinine 5.1 mg/dL (0.6-1.0) Estimated GFR (Cockcroft-Gault) 10.3 Glucose Level 172 mg/dL (70-99) Calcium Level 8.1 mg/dL (8.5-10.1) Phosphorus Level 4.7 mg/dL (2.6-4.7) Laboratory Tests Test 09/30/19 11:18 09/30/19 16:06 09/30/19 20:20 10/01/19 03:40 Glucose (Fingerstick) 266 mg/dL (70-99) 243 mg/dL (70-99) 282 mg/dL (70-99) Sodium Level 140 mmol/L (136-145) Potassium Level 3.1 mmol/L (3.5-5.1) Chloride Level 102 mmol/L (98-107) Carbon Dioxide Level 27 mmol/L (21-32) Anion Gap 11 (6-14) Blood Urea Nitrogen 42 mg/dL (7-20) Creatinine 5.1 mg/dL (0.6-1.0) Estimated GFR (Cockcroft-Gault) 10.3 Glucose Level 172 mg/dL (70-99) Calcium Level 8.1 mg/dL (8.5-10.1) Phosphorus Level 4.7 mg/dL (2.6-4.7) Test 10/01/19 08:01 Glucose (Fingerstick) 135 mg/dL (70-99) Medications Active Scripts Medications Dose Route/Sig Max Daily Dose Days Date Category Protonix (Pantoprazole Sodium) 40 Mg Tablet. 40 Mg PO DAILYAC 09/29/19 Reported Catapres (Clonidine Hcl) 0.1 Mg Tablet 1 Tab PO BID 09/29/19 Reported Aspirin Ec (Aspirin) 81 Mg Tablet. 81 Mg PO DAILYWBKFT 30 07/28/18 Rx Trelegy Ellipta 100-62.5-25 (Fluticasone/Umeclidin/Vilanter) 1 Each Blst.w.dev 1 Each IH BID 07/27/18 Reported Losartan-Hctz 100-25 Mg Tab (Losartan/Hydrochlorothiazide) 1 Each Tablet 1 Each PO DAILY 07/27/18 Reported Albuterol Sulfate Hfa Inhaler (Albuterol Sulfate) 8.5 Gm Hfa.aer.ad 8.5 Gm IH 07/06/13 Reported Amlodipine Besylate 10 Mg Tablet 10 Mg PO DAILY 07/06/13 Reported Glimepiride 1 Mg Tablet 2 Mg PO BIDWMEALS 07/06/13 Reported Comments CXR 09/28/19 Impression: Enlargement of the cardiomediastinal silhouette with resultant obscuration of the left lower lung. No other noteworthy abnormality of the chest. Impression . IMPRESSION: 1. Acute hypoxic respiratory failure secondary to chronic obstructive pulmonary disease exacerbation- resolved 2. Morbid obesity also contributing to chronic hypoxia. 3. Suspected obstructive sleep apnea. 4. Acute kidney injury- worsening Plan . RECOMMENDATIONS: 1. 02 titration, 6 min walk at dc, stable from pulmonary stand point . 2. Continue DuoNeb /Pulmicort. 3. Follow renal recommendations 5. PFTs as an outpatient and Consider sleep study as an outpatient. 6. HTN per PCP 7. advised to exercise and lose wt Discussed with RN, pt. ANI PARK MD Oct 01, 2019 10:18
[2019-10-01 10:51] VITALS: BP 164/80
--- NOTE | 2019-10-01 12:06 | PDOC ---
PROGRESS NOTES Chief Complaint Chief Complaint symptomatic hypoglycemia, metabolic encephalopathy DM2, oral agents only morbid obesity, BMI > 40 acute on chronic renal failure, has caused accumulation of DM2 med, and then the hypoglycemia renal failure on CKD, cont current fluid, consult renal, cont IV fluid hypoxia, pulm following History of Present Illness History of Present Illness making good urine, potassium low, will replace, may be improving start PT and OT oOB to chair Vitals Vitals Vital Signs Date Time Temp Pulse Resp B/P (MAP) Pulse Ox O2 Delivery O2 Flow Rate FiO2 10/01/19 11:43 94 Nasal Cannula 1.0 10/01/19 10:51 98.5 85 19 164/80 (108) 98.5 Physical Exam General: Alert, Cooperative, mild distress Heart: Regular rate Lungs: Clear Abdomen: Normal bowel sounds, Soft, No tenderness Extremities: No cyanosis, Normal pulses, Other (tr edema, dry skin) Skin: No breakdown, No significant lesion Labs LABS Laboratory Tests Test 09/30/19 16:06 09/30/19 20:20 10/01/19 03:40 10/01/19 08:01 Glucose (Fingerstick) 243 mg/dL (70-99) 282 mg/dL (70-99) 135 mg/dL (70-99) Sodium Level 140 mmol/L (136-145) Potassium Level 3.1 mmol/L (3.5-5.1) Chloride Level 102 mmol/L (98-107) Carbon Dioxide Level 27 mmol/L (21-32) Anion Gap 11 (6-14) Blood Urea Nitrogen 42 mg/dL (7-20) Creatinine 5.1 mg/dL (0.6-1.0) Estimated GFR (Cockcroft-Gault) 10.3 Glucose Level 172 mg/dL (70-99) Calcium Level 8.1 mg/dL (8.5-10.1) Phosphorus Level 4.7 mg/dL (2.6-4.7) Test 10/01/19 11:49 Glucose (Fingerstick) 156 mg/dL (70-99) Assessment and Plan Assessmemt and Plan Problems Medical Problems: (1) Fisgc-en-wyjnabm kidney injury Status: Acute (2) Adverse effect of sulfonylurea Status: Acute (3) Hypoglycemia Status: Acute Comment Review of Relevant I have reviewed the following items munir (where applicable) has been applied. Labs Laboratory Tests Test 09/29/19 17:45 09/29/19 20:22 09/30/19 04:25 09/30/19 06:30 Urine Collection Type Unknown Urine Color Yellow Urine Clarity Clear Urine pH 5.5 (<5.0-8.0) Urine Specific [place] 1.015 (1.000-1.030) Urine Protein >=300 mg/dL (NEG-TRACE) Urine Glucose (UA) Negative mg/dL (NEG) Urine Ketones (Stick) Negative mg/dL (NEG) Urine Blood Negative (NEG) Urine Nitrite Negative (NEG) Urine Bilirubin Negative (NEG) Urine Urobilinogen Dipstick 0.2 mg/dL (0.2 mg/dL) Urine Leukocyte Esterase Negative (NEG) Urine RBC Occ /HPF (0-2) Urine WBC 1-4 /HPF (0-4) Urine Squamous Epithelial Cells Few /LPF Urine Bacteria Few /HPF (0-FEW) Urine Yeast Present /HPF Glucose (Fingerstick) 193 mg/dL (70-99) White Blood Count 7.7 x10^3/uL (4.0-11.0) Red Blood Count 4.93 x10^6/uL (3.50-5.40) Hemoglobin 12.4 g/dL (12.0-15.5) Hematocrit 39.0 % (36.0-47.0) Mean Corpuscular Volume 79 fL (79-100) Mean Corpuscular Hemoglobin 25 pg (25-35) Mean Corpuscular Hemoglobin Concent 32 g/dL (31-37) Red Cell Distribution Width 16.6 % (11.5-14.5) Platelet Count 213 x10^3/uL (140-400) Neutrophils (%) (Auto) 60 % (31-73) Lymphocytes (%) (Auto) 28 % (24-48) Monocytes (%) (Auto) 7 % (0-9) Eosinophils (%) (Auto) 3 % (0-3) Basophils (%) (Auto) 1 % (0-3) Neutrophils # (Auto) 4.6 x10^3/uL (1.8-7.7) Lymphocytes # (Auto) 2.2 x10^3/uL (1.0-4.8) Monocytes # (Auto) 0.5 x10^3/uL (0.0-1.1) Eosinophils # (Auto) 0.3 x10^3/uL (0.0-0.7) Basophils # (Auto) 0.1 x10^3/uL (0.0-0.2) Hemoglobin A1c 5.9 % (4.8-5.6) Sodium Level 140 mmol/L (136-145) Potassium Level 3.1 mmol/L (3.5-5.1) Chloride Level 104 mmol/L (98-107) Carbon Dioxide Level 25 mmol/L (21-32) Anion Gap 11 (6-14) Blood Urea Nitrogen 46 mg/dL (7-20) Creatinine 5.3 mg/dL (0.6-1.0) Estimated GFR (Cockcroft-Gault) 9.9 Glucose Level 141 mg/dL (70-99) Calcium Level 7.7 mg/dL (8.5-10.1) Magnesium Level 1.5 mg/dL (1.8-2.4) Test 09/30/19 07:20 09/30/19 11:18 09/30/19 16:06 09/30/19 20:20 Glucose (Fingerstick) 127 mg/dL (70-99) 266 mg/dL (70-99) 243 mg/dL (70-99) 282 mg/dL (70-99) Test 10/01/19 03:40 10/01/19 08:01 10/01/19 11:49 Sodium Level 140 mmol/L (136-145) Potassium Level 3.1 mmol/L (3.5-5.1) Chloride Level 102 mmol/L (98-107) Carbon Dioxide Level 27 mmol/L (21-32) Anion Gap 11 (6-14) Blood Urea Nitrogen 42 mg/dL (7-20) Creatinine 5.1 mg/dL (0.6-1.0) Estimated GFR (Cockcroft-Gault) 10.3 Glucose Level 172 mg/dL (70-99) Calcium Level 8.1 mg/dL (8.5-10.1) Phosphorus Level 4.7 mg/dL (2.6-4.7) Glucose (Fingerstick) 135 mg/dL (70-99) 156 mg/dL (70-99) Laboratory Tests Test 09/30/19 16:06 09/30/19 20:20 10/01/19 03:40 10/01/19 08:01 Glucose (Fingerstick) 243 mg/dL (70-99) 282 mg/dL (70-99) 135 mg/dL (70-99) Sodium Level 140 mmol/L (136-145) Potassium Level 3.1 mmol/L (3.5-5.1) Chloride Level 102 mmol/L (98-107) Carbon Dioxide Level 27 mmol/L (21-32) Anion Gap 11 (6-14) Blood Urea Nitrogen 42 mg/dL (7-20) Creatinine 5.1 mg/dL (0.6-1.0) Estimated GFR (Cockcroft-Gault) 10.3 Glucose Level 172 mg/dL (70-99) Calcium Level 8.1 mg/dL (8.5-10.1) Phosphorus Level 4.7 mg/dL (2.6-4.7) Test 10/01/19 11:49 Glucose (Fingerstick) 156 mg/dL (70-99) Medications Current Medications Glucose (Insta-Glucose) 15 gm STK-MED ONCE .ROUTE ; Start 09/28/19 at 22:52; St op 09/28/19 at 22:52; Status DC Dextrose (Dextrose 50%-Water Syringe) 25 gm STK-MED ONCE IV ; Start 09/28/19 at 22:52; Stop 09/28/19 at 22:52; Status DC Dextrose (Dextrose 50%-Water Syringe) 25 gm 1X ONCE IV Last administered on 09/28/19at 23:10; Start 09/28/19 at 23:15; Stop 09/28/19 at 23:16; Status DC Sodium Chloride 1,000 ml @ 1,000 mls/hr 1X ONCE IV ; Start 09/29/19 at 00:00; Stop 09/29/19 at 01:10; Status DC Dextrose (Dextrose 50%-Water Syringe) 25 gm 1X ONCE IV Last administered on 09/29/19at 00:24; Start 09/29/19 at 00:30; Stop 09/29/19 at 00:31; Status DC Dextrose 1,000 ml @ 150 mls/hr 1X ONCE IV Last administered on 09/29/19at 00:30; Start 09/29/19 at 00:30; Stop 09/29/19 at 07:09; Status DC Glucose (Insta-Glucose) 15 gm 1X ONCE PO Last administered on 09/29/19at 00:21; Start 09/29/19 at 00:30; Stop 09/29/19 at 00:31; Status DC Ondansetron HCl (Zofran) 4 mg PRN Q8HRS PRN IV NAUSEA/VOMITING; Start 09/29/19 at 04:45; Stop 09/30/19 at 04:44; Status DC Amlodipine Besylate (Norvasc) 10 mg DAILY PO Last administered on 10/01/19 08:20; Start 09/29/19 at 09:00 Aspirin (Ecotrin) 81 mg DAILYWBKFT PO Last administered on 10/01/19 08:20; Start 09/29/19 at 09:00 Clonidine HCl (Catapres) 0.1 mg BID PO Last administered on 10/01/19 08:19; Start 09/29/19 at 09:00 Pantoprazole Sodium (Protonix) 40 mg DAILYAC PO Last administered on 10/01/19 08:19; Start 09/29/19 at 09:00 Non-Formulary Medication (Fluticasone/ Umeclidin/ Vilanter (Trelegy Ellipta 100-62.5-25)) 1 each BID IH ; Start 09/29/19 at 09:00; Status UNV Albuterol/ Ipratropium (Duoneb) 3 ml RTQID NEB Last administered on 10/01/19at 11:43; Start 09/29/19 at 09:00 Budesonide (Pulmicort) 0.5 mg RTBID NEB Last administered on 10/01/19at 07:38; Start 09/29/19 at 09:00 Sodium Bicarbonate 50 meq/Sodium Chloride 1,050 ml @ 100 mls/hr [id number] IV Last administered on 10/01/19 08:21; Start 09/29/19 at 09:00 Heparin Sodium (Porcine) (Heparin Sodium) 5,000 unit BID SQ Last administered on 10/01/19 08:25; Start 09/29/19 at 14:00 Magnesium Sulfate/ Dextrose 100 ml @ 100 mls/hr 1X ONCE IV Last administered on 09/30/19at 11:11; Start 09/30/19 at 10:15; Stop 09/30/19 at 11:14; Status DC Potassium Chloride (Klor-Con) 40 meq 1X ONCE PO Last administered on 09/30/19at 11:12; Start 09/30/19 at 10:15; Stop 09/30/19 at 10:16; Status DC Insulin Human Lispro (HumaLOG) 0-7 UNITS TIDWMEALS SQ Last administered on 09/30/19at 17:53; Start 09/30/19 at 17:00 Dextrose (Dextrose 50%-Water Syringe) 12.5 gm PRN Q15MIN PRN IV SEE COMMENTS; Start 09/30/19 at 16:45 Oxycodone/ Acetaminophen (Percocet 5/325) 1 tab PRN Q4HRS PRN PO PAIN Last administered on 10/01/19at 01:26; Start 09/30/19 at 16:45 Active Scripts Active Aspirin Ec (Aspirin) 81 Mg Tablet. 81 Mg PO DAILYWBKFT 30 Days Reported Protonix (Pantoprazole Sodium) 40 Mg Tablet. 40 Mg PO DAILYAC Catapres (Clonidine Hcl) 0.1 Mg Tablet 1 Tab PO BID Trelegy Ellipta 100-62.5-25 (Fluticasone/Umeclidin/Vilanter) 1 Each Blst.w.dev 1 Each IH BID Losartan-Hctz 100-25 Mg Tab (Losartan/Hydrochlorothiazide) 1 Each Tablet 1 Each PO DAILY Albuterol Sulfate Hfa Inhaler (Albuterol Sulfate) 8.5 Gm Hfa.aer.ad 8.5 Gm IH Amlodipine Besylate 10 Mg Tablet 10 Mg PO DAILY Glimepiride 1 Mg Tablet 2 Mg PO BIDWMEALS Vitals/I & O Vital Sign - Last 24 Hours 09/30/19 09/30/19 09/30/19 09/30/19 14:27 15:24 17:50 18:52 Temp 98.7 98.7 Pulse 88 Resp 20 18 B/P (MAP) 167/103 (124) Pulse Ox 95 99 O2 Delivery Room Air Room Air Nasal Cannula Room Air 09/30/19 09/30/19 09/30/19 09/30/19 18:53 19:52 20:17 20:25 Temp 98.4 98.4 Pulse 95 95 Resp 18 B/P (MAP) 163/86 (111) 163/86 Pulse Ox 99 96 O2 Delivery Room Air Nasal Cannula Room Air O2 Flow Rate 1.0 2.0 09/30/19 09/30/19 10/01/19 10/01/19 22:39 22:47 01:26 02:26 Temp 98.7 98.0 98.7 98.0 Pulse 80 88 Resp 20 19 B/P (MAP) 162/93 (116) 163/103 (123) Pulse Ox 91 91 96 O2 Delivery Nasal Cannula Room Air Nasal Cannula Nasal Cannula O2 Flow Rate 2.0 2.0 2.0 10/01/19 10/01/19 10/01/19 10/01/19 07:00 07:39 08:00 08:19 Temp 98.4 98.4 Pulse 90 90 Resp 19 B/P (MAP) 205/126 (152) 201/123 Pulse Ox 94 97 O2 Delivery Nasal Cannula Nasal Cannula Room Air O2 Flow Rate 2.0 1.0 10/01/19 10/01/19 10/01/19 08:20 10:51 11:43 Temp 98.5 98.5 Pulse 90 85 Resp 19 B/P (MAP) 201/123 164/80 (108) Pulse Ox 98 94 O2 Delivery Nasal Cannula Nasal Cannula O2 Flow Rate 2.0 1.0 Intake and Output 09/30/19 09/30/19 10/01/19 15:00 23:00 07:00 Intake Total 300 ml 500 ml 580 ml Output Total 800 ml 600 ml 200 ml Balance -500 ml -100 ml 380 ml ANDREW BELL MD Oct 01, 2019 12:06
[2019-10-01] MEDS ORDERED: METOPROLOL TART IMMED RELEASE 50 MG TABLET. PO ONE (12:15)
[2019-10-01] MEDS ORDERED: POTASSIUM CHLORIDE 20 MEQ TABLET.ER. PO ONE (12:15)
--- NOTE | 2019-10-01 12:28 | PDOC ---
PROGRESS NOTES Subjective Subjective SEEN IN FOLLOW UP OF CKD4 AND ARF Objective Objective Vital Signs Date Time Temp Pulse Resp B/P (MAP) Pulse Ox O2 Delivery O2 Flow Rate FiO2 10/01/19 12:09 85 164/80 10/01/19 11:43 94 Nasal Cannula 1.0 10/01/19 10:51 98.5 19 98.5 Intake and Output 10/01/19 07:00 Intake Total 1380 ml Output Total 1600 ml Balance -220 ml Intake Oral 1380 ml Output Urine Total 1600 ml Physical Exam Abdomen: Normal bowel sounds, Soft, No tenderness, No hepatosplenomegaly, No masses Heart: Regular rate, Normal S1, Normal S2, No murmurs, Gallops Extremities: No clubbing, No cyanosis, No edema, Normal pulses, No te nderness/swelling General: Alert, Oriented X3, Cooperative, No acute distress Lungs: Clear to auscultation, Normal air movement Psych/Mental Status: Mental status NL, Mood NL Diagnosis RENAL FAILURE: Acute (Acute tubular necrosis), Chronic (CKD stage IV) Assessment Assessment Problems Medical Problems: (1) [id number] kidney injury Status: Acute (2) Adverse effect of sulfonylurea Status: Acute (3) Hypoglycemia Status: Acute Plan Plan of Care SLOW IMPROVEMENT IN RENAL FUNCTION. CONT IVF AT REDUCED RATE Comment Review of Relevant I have reviewed the following items munir (where applicable) has been applied. Labs Laboratory Tests Test 09/29/19 17:45 09/29/19 20:22 09/30/19 04:25 09/30/19 06:30 Urine Collection Type Unknown Urine Color Yellow Urine Clarity Clear Urine pH 5.5 (<5.0-8.0) Urine Specific [place] 1.015 (1.000-1.030) Urine Protein >=300 mg/dL (NEG-TRACE) Urine Glucose (UA) Negative mg/dL (NEG) Urine Ketones (Stick) Negative mg/dL (NEG) Urine Blood Negative (NEG) Urine Nitrite Negative (NEG) Urine Bilirubin Negative (NEG) Urine Urobilinogen Dipstick 0.2 mg/dL (0.2 mg/dL) Urine Leukocyte Esterase Negative (NEG) Urine RBC Occ /HPF (0-2) Urine WBC 1-4 /HPF (0-4) Urine Squamous Epithelial Cells Few /LPF Urine Bacteria Few /HPF (0-FEW) Urine Yeast Present /HPF Glucose (Fingerstick) 193 mg/dL (70-99) White Blood Count 7.7 x10^3/uL (4.0-11.0) Red Blood Count 4.93 x10^6/uL (3.50-5.40) Hemoglobin 12.4 g/dL (12.0-15.5) Hematocrit 39.0 % (36.0-47.0) Mean Corpuscular Volume 79 fL (79-100) Mean Corpuscular Hemoglobin 25 pg (25-35) Mean Corpuscular Hemoglobin Concent 32 g/dL (31-37) Red Cell Distribution Width 16.6 % (11.5-14.5) Platelet Count 213 x10^3/uL (140-400) Neutrophils (%) (Auto) 60 % (31-73) Lymphocytes (%) (Auto) 28 % (24-48) Monocytes (%) (Auto) 7 % (0-9) Eosinophils (%) (Auto) 3 % (0-3) Basophils (%) (Auto) 1 % (0-3) Neutrophils # (Auto) 4.6 x10^3/uL (1.8-7.7) Lymphocytes # (Auto) 2.2 x10^3/uL (1.0-4.8) Monocytes # (Auto) 0.5 x10^3/uL (0.0-1.1) Eosinophils # (Auto) 0.3 x10^3/uL (0.0-0.7) Basophils # (Auto) 0.1 x10^3/uL (0.0-0.2) Hemoglobin A1c 5.9 % (4.8-5.6) Sodium Level 140 mmol/L (136-145) Potassium Level 3.1 mmol/L (3.5-5.1) Chloride Level 104 mmol/L (98-107) Carbon Dioxide Level 25 mmol/L (21-32) Anion Gap 11 (6-14) Blood Urea Nitrogen 46 mg/dL (7-20) Creatinine 5.3 mg/dL (0.6-1.0) Estimated GFR (Cockcroft-Gault) 9.9 Glucose Level 141 mg/dL (70-99) Calcium Level 7.7 mg/dL (8.5-10.1) Magnesium Level 1.5 mg/dL (1.8-2.4) Test 09/30/19 07:20 09/30/19 11:18 09/30/19 16:06 09/30/19 20:20 Glucose (Fingerstick) 127 mg/dL (70-99) 266 mg/dL (70-99) 243 mg/dL (70-99) 282 mg/dL (70-99) Test 10/01/19 03:40 10/01/19 08:01 10/01/19 11:49 Sodium Level 140 mmol/L (136-145) Potassium Level 3.1 mmol/L (3.5-5.1) Chloride Level 102 mmol/L (98-107) Carbon Dioxide Level 27 mmol/L (21-32) Anion Gap 11 (6-14) Blood Urea Nitrogen 42 mg/dL (7-20) Creatinine 5.1 mg/dL (0.6-1.0) Estimated GFR (Cockcroft-Gault) 10.3 Glucose Level 172 mg/dL (70-99) Calcium Level 8.1 mg/dL (8.5-10.1) Phosphorus Level 4.7 mg/dL (2.6-4.7) Glucose (Fingerstick) 135 mg/dL (70-99) 156 mg/dL (70-99) Laboratory Tests Test 09/30/19 16:06 09/30/19 20:20 10/01/19 03:40 10/01/19 08:01 Glucose (Fingerstick) 243 mg/dL (70-99) 282 mg/dL (70-99) 135 mg/dL (70-99) Sodium Level 140 mmol/L (136-145) Potassium Level 3.1 mmol/L (3.5-5.1) Chloride Level 102 mmol/L (98-107) Carbon Dioxide Level 27 mmol/L (21-32) Anion Gap 11 (6-14) Blood Urea Nitrogen 42 mg/dL (7-20) Creatinine 5.1 mg/dL (0.6-1.0) Estimated GFR (Cockcroft-Gault) 10.3 Glucose Level 172 mg/dL (70-99) Calcium Level 8.1 mg/dL (8.5-10.1) Phosphorus Level 4.7 mg/dL (2.6-4.7) Test 6/13/20 11:49 Glucose (Fingerstick) 156 mg/dL (70-99) Medications Current Medications Glucose (Insta-Glucose) 15 gm STK-MED ONCE .ROUTE ; Start 09/28/19 at 22:52; S top 09/28/19 at 22:52; Status DC Dextrose (Dextrose 50%-Water Syringe) 25 gm STK-MED ONCE IV ; Start 09/28/19 at 22:52; Stop 09/28/19 at 22:52; Status DC Dextrose (Dextrose 50%-Water Syringe) 25 gm 1X ONCE IV Last administered on 09/28/19at 23:10; Start 09/28/19 at 23:15; Stop 09/28/19 at 23:16; Status DC Sodium Chloride 1,000 ml @ 1,000 mls/hr 1X ONCE IV ; Start 09/29/19 at 00:00; Stop 09/29/19 at 01:10; Status DC Dextrose (Dextrose 50%-Water Syringe) 25 gm 1X ONCE IV Last administered on 09/29/19at 00:24; Start 09/29/19 at 00:30; Stop 09/29/19 at 00:31; Status DC Dextrose 1,000 ml @ 150 mls/hr 1X ONCE IV Last administered on 09/29/19at 00:30; Start 09/29/19 at 00:30; Stop 09/29/19 at 07:09; Status DC Glucose (Insta-Glucose) 15 gm 1X ONCE PO Last administered on 09/29/19at 00:21; Start 09/29/19 at 00:30; Stop 09/29/19 at 00:31; Status DC Ondansetron HCl (Zofran) 4 mg PRN Q8HRS PRN IV NAUSEA/VOMITING; Start 09/29/19 at 04:45; Stop 09/30/19 at 04:44; Status DC Amlodipine Besylate (Norvasc) 10 mg DAILY PO Last administered on 10/01/19at 08:20; Start 09/29/19 at 09:00 Aspirin (Ecotrin) 81 mg DAILYWBKFT PO Last administered on 10/01/19at 08:20; Start 09/29/19 at 09:00 Clonidine HCl (Catapres) 0.1 mg BID PO Last administered on 10/01/19at 08:19; Start 09/29/19 at 09:00 Pantoprazole Sodium (Protonix) 40 mg DAILYAC PO Last administered on 10/01/19at 08:19; Start 09/29/19 at 09:00 Non-Formulary Medication (Fluticasone/ Umeclidin/ Vilanter (Trelegy Ellipta 100-62.5-25)) 1 each BID IH ; Start 09/29/19 at 09:00; Status UNV Albuterol/ Ipratropium (Duoneb) 3 ml RTQID NEB Last administered on 10/01/19at 11:43; Start 09/29/19 at 09:00 Budesonide (Pulmicort) 0.5 mg RTBID NEB Last administered on 10/01/19at 07:38; Start 09/29/19 at 09:00 Sodium Bicarbonate 50 meq/Sodium Chloride 1,050 ml @ 50 mls/hr Q21H IV Last administered on 10/01/19at 08:21; Start 09/29/19 at 09:00 Heparin Sodium (Porcine) (Heparin Sodium) 5,000 unit BID SQ Last administered on 10/01/19at 08:25; Start 09/29/19 at 14:00 Magnesium Sulfate/ Dextrose 100 ml @ 100 mls/hr 1X ONCE IV Last administered on 09/30/19at 11:11; Start 09/30/19 at 10:15; Stop 09/30/19 at 11:14; Status DC Potassium Chloride (Klor-Con) 40 meq 1X ONCE PO Last administered on 09/30/19at 11:12; Start 09/30/19 at 10:15; Stop 09/30/19 at 10:16; Status DC Insulin Human Lispro (HumaLOG) 0-7 UNITS TIDWMEALS SQ Last administered on 09/30/19at 17:53; Start 09/30/19 at 17:00 Dextrose (Dextrose 50%-Water Syringe) 12.5 gm PRN Q15MIN PRN IV SEE COMMENTS; Start 09/30/19 at 16:45 Oxycodone/ Acetaminophen (Percocet 5/325) 1 tab PRN Q4HRS PRN PO PAIN Last administered on 10/01/19at 01:26; Start 09/30/19 at 16:45 Metoprolol Tartrate (Lopressor) 50 mg BID PO ; Start 10/01/19 at 21:00 Metoprolol Tartrate (Lopressor) 50 mg 1X ONCE PO Last administered on 10/01/19at 12:09; Start 10/01/19 at 12:15; Stop 10/01/19 at 12:16; Status DC Potassium Chloride (Klor-Con) 40 meq 1X ONCE PO Last administered on 10/01/19at 12:09; Start 10/01/19 at 12:15; Stop 10/01/19 at 12:16; Status DC Active Scripts Active Aspirin Ec (Aspirin) 81 Mg Tablet. 81 Mg PO DAILYWBKFT 30 Days Reported Protonix (Pantoprazole Sodium) 40 Mg Tablet. 40 Mg PO DAILYAC Catapres (Clonidine Hcl) 0.1 Mg Tablet 1 Tab PO BID Trelegy Ellipta 100-62.5-25 (Fluticasone/Umeclidin/Vilanter) 1 Each Blst.w.dev 1 Each IH BID Losartan-Hctz 100-25 Mg Tab (Losartan/Hydrochlorothiazide) 1 Each Tablet 1 Each PO DAILY Albuterol Sulfate Hfa Inhaler (Albuterol Sulfate) 8.5 Gm Hfa.aer.ad 8.5 Gm IH Amlodipine Besylate 10 Mg Tablet 10 Mg PO DAILY Glimepiride 1 Mg Tablet 2 Mg PO BIDWMEALS Vitals/I & O Vital Sign - Last 24 Hours 09/30/19 09/30/19 09/30/19 09/30/19 14:27 15:24 17:50 18:52 Temp 98.7 98.7 Pulse 88 Resp 20 18 B/P (MAP) 167/103 (124) Pulse Ox 95 99 O2 Delivery Room Air Room Air Nasal Cannula Room Air 09/30/19 09/30/19 09/30/19 09/30/19 18:53 19:52 20:17 20:25 Temp 98.4 98.4 Pulse 95 95 Resp 18 B/P (MAP) 163/86 (111) 163/86 Pulse Ox 99 96 O2 Delivery Room Air Nasal Cannula Room Air O2 Flow Rate 1.0 2.0 09/30/19 09/30/19 10/01/19 10/01/19 22:39 22:47 01:26 02:26 Temp 98.7 98.0 98.7 98.0 Pulse 80 88 Resp 20 19 B/P (MAP) 162/93 (116) 163/103 (123) Pulse Ox 91 91 96 O2 Delivery Nasal Cannula Room Air Nasal Cannula Nasal Cannula O2 Flow Rate 2.0 2.0 2.0 10/01/19 10/01/19 10/01/19 10/01/19 07:00 07:39 08:00 08:19 Temp 98.4 98.4 Pulse 90 90 Resp 19 B/P (MAP) 205/126 (152) 201/123 Pulse Ox 94 97 O2 Delivery Nasal Cannula Nasal Cannula Room Air O2 Flow Rate 2.0 1.0 10/01/19 10/01/19 10/01/19 10/01/19 08:20 10:51 11:43 12:09 Temp 98.5 98.5 Pulse 90 85 85 Resp 19 B/P (MAP) 201/123 164/80 (108) 164/80 Pulse Ox 98 94 O2 Delivery Nasal Cannula Nasal Cannula O2 Flow Rate 2.0 1.0 Intake and Output 09/30/19 09/30/19 10/01/19 15:00 23:00 07:00 Intake Total 300 ml 500 ml 580 ml Output Total 800 ml 600 ml 200 ml Balance -500 ml -100 ml 380 ml RICKY NUNEZ MD Oct 01, 2019 12:28
[2019-10-01 14:49] VITALS: BP 173/94
[2019-10-01] MEDS: NICOTINE 21MG PATCH. TD SCH (15:27)
[2019-10-01 19:00] VITALS: BP 173/91
[2019-10-01] MEDS: METOPROLOL TART IMMED RELEASE 50 MG TABLET. PO SCH (21:58)
[2019-10-01 23:00] VITALS: BP 158/101
[2019-10-02] VITALS (8 sets, daily range): BP systolic 139–199; BP diastolic 57–103
[2019-10-02 05:52] LABS: ALBUMIN 2.7 g/dL (3.4-5.0); ALBUMIN/GLOBULIN RATIO 0.7 (1.0-1.7); CALCIUM 8.9 mg/dL (8.5-10.1); GFR 10.6; POTASSIUM 3.7 mmol/L (3.5-5.1); TOTAL BILIRUBIN 0.1 mg/dL (0.2-1.0); TOTAL PROTEIN 6.4 g/dL (6.4-8.2)
[2019-10-02] MEDS: IPRATRPIUM/ALBUTEROL 0.5/2.5MG 3 ML NEBU. NEB SCH ×4 (07:10→20:17)
[2019-10-02] MEDS: BUDESONIDE 0.5 MG/2 ML NEBU. NEB SCH ×2 (07:10→20:17)
[2019-10-02] MEDS: INSULIN LISPRO 300 UNITS/3 ML VIAL. SQ SCH ×3 (07:12→16:46)
[2019-10-02] MEDS: cloNIDine HCL 0.1 MG TABLET PO SCH ×3 (07:42→20:27)
[2019-10-02] MEDS: amLODIPine BESYLATE 10 MG TABLET PO SCH (07:43)
[2019-10-02] MEDS: NICOTINE 21MG PATCH. TD SCH (07:43)
[2019-10-02] MEDS: METOPROLOL TART IMMED RELEASE 50 MG TABLET. PO SCH ×2 (07:43→20:27)
[2019-10-02] MEDS: PANTOPRAZOLE 40 MG TABLET.DR. PO SCH (07:43)
[2019-10-02] MEDS: ASPIRIN ENTERIC COATED 81 MG TABLET.DR. PO SCH (07:43)
[2019-10-02] MEDS: HEPARIN for SUB-Q USE 5,000 UNIT/ML VIAL. SQ SCH ×2 (07:47→20:34)
[2019-10-02] MEDS ORDERED: NICOTINE 21MG PATCH. TD SCH (09:00)
--- NOTE | 2019-10-02 09:53 | PDOC ---
PROGRESS NOTES Chief Complaint Chief Complaint symptomatic hypoglycemia, metabolic encephalopathy DM2, oral agents only morbid obesity, BMI > 40 acute on chronic renal failure, has caused accumulation of DM2 med, and then the hypoglycemia renal failure on CKD, cont current fluid, consult renal, cont IV fluid hypoxia, pulm following History of Present Illness History of Present Illness making good urine, creat not better, this may be ESRD, may need dialysis, renal following start PT and OT oOB to chair creatinine not better renal, dm2 diet, pain with ambulation, very weak, will need placement nutrition consult Vitals Vitals Vital Signs Date Time Temp Pulse Resp B/P (MAP) Pulse Ox O2 Delivery O2 Flow Rate FiO2 10/02/19 07:59 98.6 88 22 153/92 (112) 95 Room Air 98.6 10/01/19 22:58 2.0 Physical Exam General: Alert, Oriented X3, Cooperative, No acute distress Heart: Regular rate, Normal S1, Normal S2, No murmurs, Gallops Lungs: Clear Abdomen: Normal bowel sounds, Soft, No tenderness, No hepatosplenomegaly, No masses Extremities: No clubbing, No cyanosis, No edema, Normal pulses, No tenderness/swelling Skin: No breakdown, No significant lesion Labs LABS Laboratory Tests Test 10/01/19 11:49 10/01/19 17:09 10/01/19 20:33 10/02/19 05:05 Glucose (Fingerstick) 156 mg/dL (70-99) 196 mg/dL (70-99) 215 mg/dL (70-99) Sodium Level 143 mmol/L (136-145) Potassium Level 3.7 mmol/L (3.5-5.1) Chloride Level 104 mmol/L (98-107) Carbon Dioxide Level 27 mmol/L (21-32) Anion Gap 12 (6-14) Blood Urea Nitrogen 45 mg/dL (7-20) Creatinine 5.0 mg/dL (0.6-1.0) Estimated GFR (Cockcroft-Gault) 10.6 BUN/Creatinine Ratio 9 (6-20) Glucose Level 138 mg/dL (70-99) Calcium Level 8.9 mg/dL (8.5-10.1) Total Bilirubin 0.1 mg/dL (0.2-1.0) Aspartate Amino Transf (AST/SGOT) 13 U/L (15-37) Alanine Aminotransferase (ALT/SGPT) 21 U/L (14-59) Alkaline Phosphatase 120 U/L (46-116) Total Protein 6.4 g/dL (6.4-8.2) Albumin 2.7 g/dL (3.4-5.0) Albumin/Globulin Ratio 0.7 (1.0-1.7) Test 10/02/19 07:04 Glucose (Fingerstick) 141 mg/dL (70-99) Assessment and Plan Assessmemt and Plan Problems Medical Problems: (1) [id number] kidney injury Status: Acute (2) Adverse effect of sulfonylurea Status: Acute (3) Hypoglycemia Status: Acute Comment Review of Relevant I have reviewed the following items munir (where applicable) has been applied. Labs Laboratory Tests Test 09/30/19 11:18 09/30/19 16:06 09/30/19 20:20 10/01/19 03:40 Glucose (Fingerstick) 266 mg/dL (70-99) 243 mg/dL (70-99) 282 mg/dL (70-99) Sodium Level 140 mmol/L (136-145) Potassium Level 3.1 mmol/L (3.5-5.1) Chloride Level 102 mmol/L (98-107) Carbon Dioxide Level 27 mmol/L (21-32) Anion Gap 11 (6-14) Blood Urea Nitrogen 42 mg/dL (7-20) Creatinine 5.1 mg/dL (0.6-1.0) Estimated GFR (Cockcroft-Gault) 10.3 Glucose Level 172 mg/dL (70-99) Calcium Level 8.1 mg/dL (8.5-10.1) Phosphorus Level 4.7 mg/dL (2.6-4.7) Test 10/01/19 08:01 10/01/19 11:49 10/01/19 17:09 10/01/19 20:33 Glucose (Fingerstick) 135 mg/dL (70-99) 156 mg/dL (70-99) 196 mg/dL (70-99) 215 mg/dL (70-99) Test 10/02/19 05:05 10/02/19 07:04 Sodium Level 143 mmol/L (136-145) Potassium Level 3.7 mmol/L (3.5-5.1) Chloride Level 104 mmol/L (98-107) Carbon Dioxide Level 27 mmol/L (21-32) Anion Gap 12 (6-14) Blood Urea Nitrogen 45 mg/dL (7-20) Creatinine 5.0 mg/dL (0.6-1.0) Estimated GFR (Cockcroft-Gault) 10.6 BUN/Creatinine Ratio 9 (6-20) Glucose Level 138 mg/dL (70-99) Calcium Level 8.9 mg/dL (8.5-10.1) Total Bilirubin 0.1 mg/dL (0.2-1.0) Aspartate Amino Transf (AST/SGOT) 13 U/L (15-37) Alanine Aminotransferase (ALT/SGPT) 21 U/L (14-59) Alkaline Phosphatase 120 U/L (46-116) Total Protein 6.4 g/dL (6.4-8.2) Albumin 2.7 g/dL (3.4-5.0) Albumin/Globulin Ratio 0.7 (1.0-1.7) Glucose (Fingerstick) 141 mg/dL (70-99) Laboratory Tests Test 10/01/19 11:49 10/01/19 17:09 10/01/19 20:33 10/02/19 05:05 Glucose (Fingerstick) 156 mg/dL (70-99) 196 mg/dL (70-99) 215 mg/dL (70-99) Sodium Level 143 mmol/L (136-145) Potassium Level 3.7 mmol/L (3.5-5.1) Chloride Level 104 mmol/L (98-107) Carbon Dioxide Level 27 mmol/L (21-32) Anion Gap 12 (6-14) Blood Urea Nitrogen 45 mg/dL (7-20) Creatinine 5.0 mg/dL (0.6-1.0) Estimated GFR (Cockcroft-Gault) 10.6 BUN/Creatinine Ratio 9 (-20) Glucose Level 138 mg/dL (70-99) Calcium Level 8.9 mg/dL (8.5-10.1) Total Bilirubin 0.1 mg/dL (0.2-1.0) Aspartate Amino Transf (AST/SGOT) 13 U/L (15-37) Alanine Aminotransferase (ALT/SGPT) 21 U/L (14-59) Alkaline Phosphatase 120 U/L (46-116) Total Protein 6.4 g/dL (6.4-8.2) Albumin 2.7 g/dL (3.4-5.0) Albumin/Globulin Ratio 0.7 (1.0-1.7) Test 10/02/19 07:04 Glucose (Fingerstick) 141 mg/dL (70-99) Medications Current Medications Glucose (Insta-Glucose) 15 gm STK-MED ONCE .ROUTE ; Start 09/28/19 at 22:52; Stop 09/28/19 at 22:52; Status DC Dextrose (Dextrose 50%-Water Syringe) 25 gm STK-MED ONCE IV ; Start 09/28/19 at 22:52; Stop 09/28/19 at 22:52; Status DC Dextrose (Dextrose 50%-Water Syringe) 25 gm 1X ONCE IV Last administered on 09/28/19at 23:10; Start 09/28/19 at 23:15; Stop 09/28/19 at 23:16; Status DC Sodium Chloride 1,000 ml @ 1,000 mls/hr 1X ONCE IV ; Start 09/29/19 at 00:00; Stop 09/29/19 at 01:10; Status DC Dextrose (Dextrose 50%-Water Syringe) 25 gm 1X ONCE IV Last administered on 09/29/19at 00:24; Start 09/29/19 at 00:30; Stop 09/29/19 at 00:31; Status DC Dextrose 1,000 ml @ 150 mls/hr 1X ONCE IV Last administered on 09/29/19at 00:30; Start 09/29/19 at 00:30; Stop 09/29/19 at 07:09; Status DC Glucose (Insta-Glucose) 15 gm 1X ONCE PO Last administered on 09/29/19at 00:21; Start 09/29/19 at 00:30; Stop 09/29/19 at 00:31; Status DC Ondansetron HCl (Zofran) 4 mg PRN Q8HRS PRN IV NAUSEA/VOMITING; Start 09/29/19 at 04:45; Stop 09/30/19 at 04:44; Status DC Amlodipine Besylate (Norvasc) 10 mg DAILY PO Last administered on 10/02/19at 0 7:43; Start 09/29/19 at 09:00 Aspirin (Ecotrin) 81 mg DAILYWBKFT PO Last administered on 10/02/19 07:43; Start 09/29/19 at 09:00 Clonidine HCl (Catapres) 0.1 mg BID PO Last administered on 10/01/19at 08:19; Start 09/29/19 at 09:00; Stop 10/01/19 at 14:56; Status DC Pantoprazole Sodium (Protonix) 40 mg DAILYAC PO Last administered on 10/02/19at 07:43; Start 09/29/19 at 09:00 Non-Formulary Medication (Fluticasone/ Umeclidin/ Vilanter (Trelegy Ellipta 100-62.5-25)) 1 each BID IH ; Start 09/29/19 at 09:00; Status UNV Albuterol/ Ipratropium (Duoneb) 3 ml RTQID NEB Last administered on 10/02/19at 07:10; Start 09/29/19 at 09:00 Budesonide (Pulmicort) 0.5 mg RTBID NEB Last administered on 10/02/19at 07:10; Start 09/29/19 at 09:00 Sodium Bicarbonate 50 meq/Sodium Chloride 1,050 ml @ 50 mls/hr Q21H IV Last administered on 10/01/19at 08:21; Start 09/29/19 at 09:00; Stop 10/01/19 at 13:02; Status DC Heparin Sodium (Porcine) (Heparin Sodium) 5,000 unit BID SQ Last administered on 10/02/19at 07:47; Start 09/29/19 at 14:00 Magnesium Sulfate/ Dextrose 100 ml @ 100 mls/hr 1X ONCE IV Last administered on 09/30/19at 11:11; Start 09/30/19 at 10:15; Stop 09/30/19 at 11:14; Status DC Potassium Chloride (Klor-Con) 40 meq 1X ONCE PO Last administered on 09/30/19at 11:12; Start 09/30/19 at 10:15; Stop 09/30/19 at 10:16; Status DC Insulin Human Lispro (HumaLOG) 0-7 UNITS TIDWMEALS SQ Last administered on 09/30/19at 17:53; Start 09/30/19 at 17:00 Dextrose (Dextrose 50%-Water Syringe) 12.5 gm PRN Q15MIN PRN IV SEE COMMENTS; Start 09/30/19 at 16:45 Oxycodone/ Acetaminophen (Percocet 5/325) 1 tab PRN Q4HRS PRN PO PAIN Last administered on 10/01/19at 21:58; Start 09/30/19 at 16:45 Metoprolol Tartrate (Lopressor) 50 mg BID PO Last administered on 10/02/19at 07:43; Start 10/01/19 at 21:00 Metoprolol Tartrate (Lopressor) 50 mg 1X ONCE PO Last administered on 10/01/19at 12:09; Start 10/01/19 at 12:15; Stop 10/01/19 at 12:16; Status DC Potassium Chloride (Klor-Con) 40 meq 1X ONCE PO Last administered on 10/01/19at 12:09; Start 10/01/19 at 12:15; Stop 10/01/19 at 12:16; Status DC Clonidine HCl (Catapres) 0.1 mg TID PO Last administered on 10/02/19at 07:42; S tart 10/01/19 at 15:00 Nicotine (Nicoderm Cq 21mg) 1 patch DAILY TD ; Start 10/02/19 at 09:00; Stop 10/01/19 at 15:06; Status DC Nicotine (Nicoderm Cq 21mg) 1 patch DAILY TD Last administered on 10/02/19at 07:43; Start 10/01/19 at 15:15 Active Scripts Active Aspirin Ec (Aspirin) 81 Mg Tablet. 81 Mg PO DAILYWBKFT 30 Days Reported Protonix (Pantoprazole Sodium) 40 Mg Tablet. 40 Mg PO DAILYAC Catapres (Clonidine Hcl) 0.1 Mg Tablet 1 Tab PO TID Trelegy Ellipta 100-62.5-25 (Fluticasone/Umeclidin/Vilanter) 1 Each Blst.w.dev 1 Each IH BID Losartan-Hctz 100-25 Mg Tab (Losartan/Hydrochlorothiazide) 1 Each Tablet 1 Each PO DAILY Albuterol Sulfate Hfa Inhaler (Albuterol Sulfate) 8.5 Gm Hfa.aer.ad 8.5 Gm IH Amlodipine Besylate 10 Mg Tablet 10 Mg PO DAILY Glimepiride 1 Mg Tablet 2 Mg PO BIDWMEALS Vitals/I & O Vital Sign - Last 24 Hours 10/01/19 10/01/19 10/01/19 10/01/19 10:51 11:43 12:09 14:49 Temp 98.5 98.4 98.5 98.4 Pulse 85 85 76 Resp 19 19 B/P (MAP) 164/80 (108) 164/80 173/94 (120) Pulse Ox 98 94 91 O2 Delivery Nasal Cannula Nasal Cannula Nasal Cannula O2 Flow Rate 2.0 1.0 2.0 10/01/19 10/01/19 10/01/19 10/01/19 15:27 19:00 20:00 20:05 Temp 98.0 98.0 Pulse 76 83 Resp 20 B/P (MAP) 173/94 173/91 (118) Pulse Ox 92 97 O2 Delivery Room Air Nasal Cannula Room Air O2 Flow Rate 2.0 10/01/19 10/01/19 10/01/19 10/01/19 20:07 21:57 21:58 21:58 Pulse 83 83 B/P (MAP) 173/91 173/91 Pulse Ox 97 97 O2 Delivery Room Air Nasal Cannula O2 Flow Rate 2.0 10/01/19 10/01/19 10/02/19 10/02/19 22:58 23:00 03:14 07:11 Temp 98.1 97.7 98.1 97.7 Pulse 78 88 Resp 20 20 B/P (MAP) 158/101 (120) 199/103 (135) Pulse Ox 95 95 91 95 O2 Delivery Nasal Cannula Room Air Room Air Room Air O2 Flow Rate 2.0 10/02/19 10/02/19 10/02/19 10/02/19 07:42 07:43 07:43 07:59 Temp 98.6 98.6 Pulse 88 88 88 88 Resp 22 B/P (MAP) 199/103 199/103 199/103 153/92 (112) Pulse Ox 95 O2 Delivery Room Air Intake and Output 10/01/19 10/01/19 10/02/19 15:00 23:00 07:00 Intake Total 400 ml 400 ml Output Total 1400 ml 200 ml 0 ml Balance -1000 ml 200 ml 0 ml ANDREW BELL MD Oct 02, 2019 09:53
[2019-10-02] MEDS: oxyCODONE/APAP 5/325 1 TAB TABLET PO PRN ×2 (10:00→16:35)
[2019-10-02] MEDS: IV NORMAL SALINE 1000ML BAG 1,000 ML IV SCH ×2 (10:02→22:17)
--- NOTE | 2019-10-02 10:39 | PDOC ---
PULMONARY PROGRESS NOTES Subjective on RA, denies sob has cough 2/2 post nasal drip Vitals Vital Signs Date Time Temp Pulse Resp B/P (MAP) Pulse Ox O2 Delivery O2 Flow Rate FiO2 10/02/19 10:00 16 Room Air 10/02/19 07:59 98.6 88 153/92 (112) 95 98.6 10/01/19 22:58 2.0 ROS: No Nausea, No Chest Pain, No Abdominal Pain, No Increase Cough General: Alert, Oriented X4 Lungs: Clear Cardiovascular: S1, S2 Abdomen: Soft, Non-tender, Other (obese) Neuro Exam: Alert, Oriented Extremities: Other (trace BLE ) Skin: Warm, Dry Labs Laboratory Tests Test 09/30/19 11:18 09/30/19 16:06 09/30/19 20:20 10/01/19 03:40 Glucose (Fingerstick) 266 mg/dL (70-99) 243 mg/dL (70-99) 282 mg/dL (70-99) Sodium Level 140 mmol/L (136-145) Potassium Level 3.1 mmol/L (3.5-5.1) Chloride Level 102 mmol/L (98-107) Carbon Dioxide Level 27 mmol/L (21-32) Anion Gap 11 (6-14) Blood Urea Nitrogen 42 mg/dL (7-20) Creatinine 5.1 mg/dL (0.6-1.0) Estimated GFR (Cockcroft-Gault) 10.3 Glucose Level 172 mg/dL (70-99) Calcium Level 8.1 mg/dL (8.5-10.1) Phosphorus Level 4.7 mg/dL (2.6-4.7) Test 10/01/19 08:01 10/01/19 11:49 10/01/19 17:09 10/01/19 20:33 Glucose (Fingerstick) 135 mg/dL (70-99) 156 mg/dL (70-99) 196 mg/dL (70-99) 215 mg/dL (70-99) Test 10/02/19 05:05 10/02/19 07:04 Sodium Level 143 mmol/L (136-145) Potassium Level 3.7 mmol/L (3.5-5.1) Chloride Level 104 mmol/L (98-107) Carbon Dioxide Level 27 mmol/L (21-32) Anion Gap 12 (6-14) Blood Urea Nitrogen 45 mg/dL (7-20) Creatinine 5.0 mg/dL (0.6-1.0) Estimated GFR (Cockcroft-Gault) 10.6 BUN/Creatinine Ratio 9 (6-20) Glucose Level 138 mg/dL (70-99) Calcium Level 8.9 mg/dL (8.5-10.1) Total Bilirubin 0.1 mg/dL (0.2-1.0) Aspartate Amino Transf (AST/SGOT) 13 U/L (15-37) Alanine Aminotransferase (ALT/SGPT) 21 U/L (14-59) Alkaline Phosphatase 120 U/L (46-116) Total Protein 6.4 g/dL (6.4-8.2) Albumin 2.7 g/dL (3.4-5.0) Albumin/Globulin Ratio 0.7 (1.0-1.7) Glucose (Fingerstick) 141 mg/dL (70-99) Laboratory Tests Test 10/01/19 11:49 10/01/19 17:09 10/01/19 20:33 10/02/19 05:05 Glucose (Fingerstick) 156 mg/dL (70-99) 196 mg/dL (70-99) 215 mg/dL (70-99) Sodium Level 143 mmol/L (136-145) Potassium Level 3.7 mmol/L (3.5-5.1) Chloride Level 104 mmol/L (98-107) Carbon Dioxide Level 27 mmol/L (21-32) Anion Gap 12 (6-14) Blood Urea Nitrogen 45 mg/dL (7-20) Creatinine 5.0 mg/dL (0.6-1.0) Estimated GFR (Cockcroft-Gault) 10.6 BUN/Creatinine Ratio 9 (6-20) Glucose Level 138 mg/dL (70-99) Calcium Level 8.9 mg/dL (8.5-10.1) Total Bilirubin 0.1 mg/dL (0.2-1.0) Aspartate Amino Transf (AST/SGOT) 13 U/L (15-37) Alanine Aminotransferase (ALT/SGPT) 21 U/L (14-59) Alkaline Phosphatase 120 U/L (46-116) Total Protein 6.4 g/dL (6.4-8.2) Albumin 2.7 g/dL (3.4-5.0) Albumin/Globulin Ratio 0.7 (1.0-1.7) Test 10/02/19 07:04 Glucose (Fingerstick) 141 mg/dL (70-99) Medications Active Scripts Medications Dose Route/Sig Max Daily Dose Days Date Category Protonix (Pantoprazole Sodium) 40 Mg Tablet. 40 Mg PO DAILYAC 09/29/19 Reported Catapres (Clonidine Hcl) 0.1 Mg Tablet 1 Tab PO BID 09/29/19 Reported Aspirin Ec (Aspirin) 81 Mg Tablet.dr 81 Mg PO DAILYWBKFT 30 07/28/18 Rx Trelegy Ellipta 100-62.5-25 (Fluticasone/Umeclidin/Vilanter) 1 Each Blst.w.dev 1 Each IH BID 07/27/18 Reported Losartan-Hctz 100-25 Mg Tab (Losartan/Hydrochlorothiazide) 1 Each Tablet 1 Each PO DAILY 07/27/18 Reported Albuterol Sulfate Hfa Inhaler (Albuterol Sulfate) 8.5 Gm Hfa.aer.ad 8.5 Gm IH 07/06/13 Reported Amlodipine Besylate 10 Mg Tablet 10 Mg PO DAILY 07/06/13 Reported Glimepiride 1 Mg Tablet 2 Mg PO BIDWMEALS 07/06/13 Reported Comments CXR 09/28/19 Impression: Enlargement of the cardiomediastinal silhouette with resultant obscuration of the left lower lung. No other noteworthy abnormality of the chest. Impression . IMPRESSION: 1. Acute hypoxic respiratory failure secondary to chronic obstructive pulmonary disease exacerbation- resolved 2. Morbid obesity also contributing to chronic hypoxia. 3. Suspected obstructive sleep apnea. 4. Acute kidney injury- worsening Plan . RECOMMENDATIONS: 1. 02 titration, 6 min walk at dc, add flonase for post nasal drip 2. Continue DuoNeb /Pulmicort. 3. Follow renal recommendations 5. PFTs as an outpatient and Consider sleep study as an outpatient. 6. HTN per PCP 7. advised to exercise and lose wt Discussed with RN, pt. ANI PARK MD Oct 02, 2019 10:39
[2019-10-03 03:37] VITALS: BP 185/105
[2019-10-03] MEDS: oxyCODONE/APAP 5/325 1 TAB TABLET PO PRN ×2 (04:53→11:09)
[2019-10-03] MEDS: IV NORMAL SALINE 1000ML BAG 1,000 ML IV SCH ×2 (06:08→16:52)
[2019-10-03] MEDS: PANTOPRAZOLE 40 MG TABLET.DR. PO SCH (06:08)
[2019-10-03 06:50] LABS: BASO # 0.1 x10^3/uL (0.0-0.2); BASO % 1 % (0-3); EOS # 0.3 x10^3/uL (0.0-0.7); EOS % 3 % (0-3); HEMATOCRIT 34.4 % (36.0-47.0); HEMOGLOBIN 10.9 g/dL (12.0-15.5); LYMPH # 2.2 x10^3/uL (1.0-4.8); LYMPH % 21 % (24-48); MEAN CORPUSCULAR HEMOGLOBIN 25 pg (25-35); MEAN CORPUSCULAR HGB CONC 32 g/dL (31-37); MEAN CORPUSCULAR VOLUME 79 fL (79-100); MONO # 0.8 x10^3/uL (0.0-1.1); MONO % 8 % (0-9); NEUT % 67 % (31-73); PLATELET COUNT 220 x10^3/uL (140-400); RED BLOOD COUNT 4.36 x10^6/uL (3.50-5.40); RED CELL DISTRIBUTION WIDTH 15.7 % (11.5-14.5); WHITE BLOOD COUNT 10.4 x10^3/uL (4.0-11.0)
[2019-10-03 07:00] VITALS: BP 184/108
[2019-10-03 07:13] LABS: ALBUMIN 2.3 g/dL (3.4-5.0); ALBUMIN/GLOBULIN RATIO 0.5 (1.0-1.7); CALCIUM 8.5 mg/dL (8.5-10.1); CREATININE 4.5 mg/dL (0.6-1.0); GFR 11.9; MAGNESIUM 1.3 mg/dL (1.8-2.4); PHOSPHORUS 3.7 mg/dL (2.6-4.7); POTASSIUM 3.4 mmol/L (3.5-5.1); TOTAL BILIRUBIN 0.3 mg/dL (0.2-1.0); TOTAL PROTEIN 6.5 g/dL (6.4-8.2)
[2019-10-03] MEDS: BUDESONIDE 0.5 MG/2 ML NEBU. NEB SCH ×2 (07:26→20:15)
[2019-10-03] MEDS: IPRATRPIUM/ALBUTEROL 0.5/2.5MG 3 ML NEBU. NEB SCH ×4 (07:26→20:15)
[2019-10-03] MEDS: INSULIN LISPRO 300 UNITS/3 ML VIAL. SQ SCH ×3 (08:00→17:02)
[2019-10-03] MEDS: METOPROLOL TART IMMED RELEASE 50 MG TABLET. PO SCH ×2 (08:23→20:51)
[2019-10-03] MEDS: amLODIPine BESYLATE 10 MG TABLET PO SCH (08:24)
[2019-10-03] MEDS: cloNIDine HCL 0.1 MG TABLET PO SCH ×3 (08:24→20:51)
[2019-10-03] MEDS: ASPIRIN ENTERIC COATED 81 MG TABLET.DR. PO SCH (08:24)
[2019-10-03] MEDS: FLUTICASONE 50MCG/NASAL SPRAY 16GM BOTTLE. NS SCH (08:25)
[2019-10-03] MEDS: NICOTINE 21MG PATCH. TD SCH (08:26)
[2019-10-03] MEDS: HEPARIN for SUB-Q USE 5,000 UNIT/ML VIAL. SQ SCH ×2 (08:38→20:57)
--- NOTE | 2019-10-03 09:33 | PDOC ---
PROGRESS NOTES Chief Complaint Chief Complaint IMPRESSION symptomatic hypoglycemia, metabolic encephalopathy DM2, oral agents only morbid obesity, BMI > 40 acute on chronic renal failure, has caused accumulation of DM2 med, and then the hypoglycemia CR 4.5 renal failure on CKD, cont current fluid, NEPHROLOGY FOLLOWING consult renal, cont IV fluid hypoxia, pulm following Acute hypoxic respiratory failure secondary to chronic obstructive pulmonary disease exacerbation- resolved Morbid obesity also contributing to chronic hypoxia. Pericardial effusion is again seen. ON CT 38 MIN PT EXAM, CHART REVIEW, > 50% OF TIME SPENT WITH EXAM, CHART REVIEW, PT CARE COORDINATION History of Present Illness History of Present Illness PLAN SLOW IMPROVEMENT IN RENAL FUNCTION. CONT IVF AT REDUCED RATE making good urine, creat not better, this may be ESRD, may need dialysis, renal following PT and OT oOB to chair creatinine not better renal, dm2 diet, pain with ambulation, very weak, will need placement nutrition consult Vitals Vitals Vital Signs Date Time Temp Pulse Resp B/P (MAP) Pulse Ox O2 Delivery O2 Flow Rate FiO2 10/03/19 08:24 77 184/108 10/03/19 07:26 98 Room Air 10/03/19 07:00 97.7 18 97.7 Physical Exam General: Alert, Oriented X3, Cooperative, No acute distress Heart: Regular rate, Normal S1, Normal S2, No murmurs, Gallops Lungs: Clear Abdomen: Normal bowel sounds, Soft, No tenderness, No hepatosplenomegaly, No masses Extremities: No clubbing, No cyanosis, No edema, Normal pulses, No tenderness/swelling Skin: No breakdown, No significant lesion Labs LABS EXAM: Two-dimensional and M-mode echocardiogram with Doppler and color Doppler. Other Information Quality : Fair Technically limited study due to body habitus. INDICATION Diastolic Heart Failure RISK FACTORS Obesity 2D DIMENSIONS RVDd 3.6 (2.9-3.5cm) Left Atrium(2D) 4.0 (1.6-4.0cm) IVSd 1.7 (0.7-1.1cm) Aortic Root(2D) 2.9 (2.0-3.7cm) LVDd 4.4 (3.9-5.9cm) LVOT Diameter 2.0 (1.8-2.4cm) PWd 1.2 (0.7-1.1cm) LVDs 2.2 (2.5-4.0cm) FS (%) 30.0 % SV 71.1 ml LVEF(%) 60.0 (>50%) Aortic Valve AoV Peak Americo. 130.8cm/s AoV VTI 28.5cm AO Peak GR. 6.8mmHg LVOT Peak Americo. 98.3cm/s LVOT VTI 22.70cm AO Mean GR. 4mmHg ESTHER (VMAX) 2.28cm2 ESTHER (VTI) 2.42cm2 Mitral Valve MV E Velocity 60.6cm/s MV DECEL TIME 232ms MV A Velocity 111.5cm/s MV PHT 67ms E/A Ratio 0.5 MVA (PHT) 3.27cm2 TDI E/Lateral E' 14.0 E/Medial E' 18.6 Tricuspid Valve TR P. Velocity 279cm/s RAP ESTIMATE 3mmHg TR Peak Gr. 31mmHg RVSP 34mmHg Pulmonary Vein S1 Velocity 42.2cm/s D2 Velocity 33.2cm/s LEFT VENTRICLE The left ventricle is normal size. There is mild to moderate concentric left ventricular hypertrophy. The left ventricular systolic function is normal and the ejection fraction is within normal range. The Ejection Fraction is 60-65%. There is normal LV segmental wall motion. Transmitral Doppler flow pattern is Grade I-abnormal relaxation pattern. RIGHT VENTRICLE The right ventricle is normal size. The right ventricular systolic function is normal. ATRIA The left atrium is mildly dilated. The right atrium size is normal. The interatrial septum is intact with no evidence for an atrial septal defect or patent foramen ovale as noted on 2-D or Doppler imaging. AORTIC VALVE The aortic valve is calcified but opens well. Doppler and Color Flow revealed no significant aortic regurgitation. There is no significant aortic valvular stenosis. MITRAL VALVE The mitral valve is normal in structure and function. There is no evidence of mitral valve prolapse. There is no mitral valve stenosis. Doppler and Color Flow revealed no mitral valve regurgitation noted. TRICUSPID VALVE The tricuspid valve is normal in structure and function. Doppler and Color Flow revealed trace to mild tricuspid regurgitation. There is mild pulmonary hyperte nsion. The PA pressure was estimated at 34 mmHg. There is no tricuspid valve stenosis. PULMONIC VALVE The pulmonic valve is not well visualized. Doppler and Color Flow revealed trace pulmonic valvular regurgitation. There is no pulmonic valvular stenosis. GREAT VESSELS The aortic root is normal in size. The ascending aorta is moderately dilated at 3.7 cm. The IVC is normal in size and collapses >50% with inspiration. PERICARDIAL EFFUSION There is a trace to small circumferential pericardial effusion. Critical Notification Critical Value: No <Conclusion> The left ventricular systolic function is normal and the ejection fraction is within normal range. The Ejection Fraction is 60-65%. There is normal LV segmental wall motion. The ascending aorta is moderately dilated at 3.7 cm. There is a trace to small circumferential pericardial effusion. Signed by : Vince Junior, Electronically Approved : 07/07/2019 13:17:04 DICTATED and SIGNED BY: VINCE JUNIOR MD DATE: 07/07/19 1149 INDICATION: Reason: hernia / Spl. Instructions: / History: COMPARISON: February 2018 TECHNIQUE: Axial CT images obtained through the abdomen and pelvis without contrast. One or more of the following individualized dose reduction techniques were utilized for this examination: 1. Automated exposure control; 2. Adjustment of the mA and/or kV according to patient size; 3. Use of iterative reconstruction technique. FINDINGS: Small pericardial effusion again seen. Severe calcific atherosclerosis. Liver is prominent in size. Edema throughout the soft tissues. Limited evaluation of the pancreas without contrast. No evidence of splenomegaly. There is some thickening of the bilateral adrenal glands. Redemonstration of an exophytic lesion off the lower pole of the left kidney measuring up to 15 mm. Fullness of the mid pole of the bilateral kidneys is again seen. Nonspecific stranding of the bilateral kidneys. Urinary bladder is partially distended. No hydronephrosis. Low-density lesion of the right kidney measuring 16 mm and may be cystic in nature. Calcifications bilateral renal pelvis could be from nonobstructive stone although a portion could also be from calcific atherosclerosis. Colonic diverticulosis. No dilated loops of bowel to suggest obstruction. The upper abdomen there is fat-containing anterior abdominal wall hernias. There is also some fat containing anterior abdominal wall hernia is seen within the pelvis. Umbilical hernia is seen with loop of bowel extending into it again seen but no evidence of obstruction. Duodenal diverticulum. Degenerative changes of the spine with multilevel central canal and neural foraminal stenosis. Degenerative changes of the bilateral hips. IMPRESSION: * Multiple anterior abdominal wall hernias are identified containing fat with one of them near the umbilicus again containing a portion of the bowel. There is no evidence of associated obstruction. * No hydronephrosis. * Bilateral low-density renal lesions are again seen and incompletely characterized on noncontrast imaging. Couple of these are likely cystic in nature. * Pericardial effusion is again seen. Electronically signed by: Brendon Resendez MD (09/29/2019 5:24 AM) [id number] DICTATED and SIGNED BY: BRENDON RESENDEZ MD DATE: 09/29/19 0524 Laboratory Tests Test 10/02/19 11:49 10/02/19 16:15 10/02/19 20:24 10/03/19 06:00 Glucose (Fingerstick) 137 mg/dL (70-99) 119 mg/dL (70-99) 190 mg/dL (70-99) White Blood Count 10.4 x10^3/uL (4.0-11.0) Red Blood Count 4.36 x10^6/uL (3.50-5.40) Hemoglobin 10.9 g/dL (12.0-15.5) Hematocrit 34.4 % (36.0-47.0) Mean Corpuscular Volume 79 fL (79-100) Mean Corpuscular Hemoglobin 25 pg (25-35) Mean Corpuscular Hemoglobin Concent 32 g/dL (31-37) Red Cell Distribution Width 15.7 % (11.5-14.5) Platelet Count 220 x10^3/uL (140-400) Neutrophils (%) (Auto) 67 % (31-73) Lymphocytes (%) (Auto) 21 % (24-48) Monocytes (%) (Auto) 8 % (0-9) Eosinophils (%) (Auto) 3 % (0-3) Basophils (%) (Auto) 1 % (0-3) Neutrophils # (Auto) 7.0 x10^3/uL (1.8-7.7) Lymphocytes # (Auto) 2.2 x10^3/uL (1.0-4.8) Monocytes # (Auto) 0.8 x10^3/uL (0.0-1.1) Eosinophils # (Auto) 0.3 x10^3/uL (0.0-0.7) Basophils # (Auto) 0.1 x10^3/uL (0.0-0.2) Sodium Level 138 mmol/L (136-145) Potassium Level 3.4 mmol/L (3.5-5.1) Chloride Level 104 mmol/L (98-107) Carbon Dioxide Level 27 mmol/L (21-32) Anion Gap 7 (6-14) Blood Urea Nitrogen 38 mg/dL (7-20) Creatinine 4.5 mg/dL (0.6-1.0) Estimated GFR (Cockcroft-Gault) 11.9 BUN/Creatinine Ratio 8 (6-20) Glucose Level 168 mg/dL (70-99) Calcium Level 8.5 mg/dL (8.5-10.1) Phosphorus Level 3.7 mg/dL (2.6-4.7) Magnesium Level 1.3 mg/dL (1.8-2.4) Total Bilirubin 0.3 mg/dL (0.2-1.0) Aspartate Amino Transf (AST/SGOT) 14 U/L (15-37) Alanine Aminotransferase (ALT/SGPT) 16 U/L (14-59) Alkaline Phosphatase 91 U/L (46-116) Total Protein 6.5 g/dL (6.4-8.2) Albumin 2.3 g/dL (3.4-5.0) Albumin/Globulin Ratio 0.5 (1.0-1.7) Test 10/03/19 07:39 Glucose (Fingerstick) 135 mg/dL (70-99) Assessment and Plan Assessmemt and Plan Problems Medical Problems: (1) Nsiam-fu-gqitbyy kidney injury Status: Acute (2) Adverse effect of sulfonylurea Status: Acute (3) Hypoglycemia Status: Acute Comment Review of Relevant I have reviewed the following items munir (where applicable) has been applied. Labs Laboratory Tests Test 10/01/19 11:49 10/01/19 17:09 10/01/19 20:33 10/02/19 05:05 Glucose (Fingerstick) 156 mg/dL (70-99) 196 mg/dL (70-99) 215 mg/dL (70-99) Sodium Level 143 mmol/L (136-145) Potassium Level 3.7 mmol/L (3.5-5.1) Chloride Level 104 mmol/L (98-107) Carbon Dioxide Level 27 mmol/L (21-32) Anion Gap 12 (6-14) Blood Urea Nitrogen 45 mg/dL (7-20) Creatinine 5.0 mg/dL (0.6-1.0) Estimated GFR (Cockcroft-Gault) 10.6 BUN/Creatinine Ratio 9 (6-20) Glucose Level 138 mg/dL (70-99) Calcium Level 8.9 mg/dL (8.5-10.1) Total Bilirubin 0.1 mg/dL (0.2-1.0) Aspartate Amino Transf (AST/SGOT) 13 U/L (15-37) Alanine Aminotransferase (ALT/SGPT) 21 U/L (14-59) Alkaline Phosphatase 120 U/L (46-116) Total Protein 6.4 g/dL (6.4-8.2) Albumin 2.7 g/dL (3.4-5.0) Albumin/Globulin Ratio 0.7 (1.0-1.7) Test 10/02/19 07:04 10/02/19 11:49 10/02/19 16:15 10/02/19 20:24 Glucose (Fingerstick) 141 mg/dL (70-99) 137 mg/dL (70-99) 119 mg/dL (70-99) 190 mg/dL (70-99) Test 10/03/19 06:00 10/03/19 07:39 White Blood Count 10.4 x10^3/uL (4.0-11.0) Red Blood Count 4.36 x10^6/uL (3.50-5.40) Hemoglobin 10.9 g/dL (12.0-15.5) Hematocrit 34.4 % (36.0-47.0) Mean Corpuscular Volume 79 fL (79-100) Mean Corpuscular Hemoglobin 25 pg (25-35) Mean Corpuscular Hemoglobin Concent 32 g/dL (31-37) Red Cell Distribution Width 15.7 % (11.5-14.5) Platelet Count 220 x10^3/uL (140-400) Neutrophils (%) (Auto) 67 % (31-73) Lymphocytes (%) (Auto) 21 % (24-48) Monocytes (%) (Auto) 8 % (0-9) Eosinophils (%) (Auto) 3 % (0-3) Basophils (%) (Auto) 1 % (0-3) Neutrophils # (Auto) 7.0 x10^3/uL (1.8-7.7) Lymphocytes # (Auto) 2.2 x10^3/uL (1.0-4.8) Monocytes # (Auto) 0.8 x10^3/uL (0.0-1.1) Eosinophils # (Auto) 0.3 x10^3/uL (0.0-0.7) Basophils # (Auto) 0.1 x10^3/uL (0.0-0.2) Sodium Level 138 mmol/L (136-145) Potassium Level 3.4 mmol/L (3.5-5.1) Chloride Level 104 mmol/L (98-107) Carbon Dioxide Level 27 mmol/L (21-32) Anion Gap 7 (6-14) Blood Urea Nitrogen 38 mg/dL (7-20) Creatinine 4.5 mg/dL (0.6-1.0) Estimated GFR (Cockcroft-Gault) 11.9 BUN/Creatinine Ratio 8 (-20) Glucose Level 168 mg/dL (70-99) Calcium Level 8.5 mg/dL (8.5-10.1) Phosphorus Level 3.7 mg/dL (2.6-4.7) Magnesium Level 1.3 mg/dL (1.8-2.4) Total Bilirubin 0.3 mg/dL (0.2-1.0) Aspartate Amino Transf (AST/SGOT) 14 U/L (15-37) Alanine Aminotransferase (ALT/SGPT) 16 U/L (14-59) Alkaline Phosphatase 91 U/L (46-116) Total Protein 6.5 g/dL (6.4-8.2) Albumin 2.3 g/dL (3.4-5.0) Albumin/Globulin Ratio 0.5 (1.0-1.7) Glucose (Fingerstick) 135 mg/dL (70-99) Laboratory Tests Test 10/02/19 11:49 10/02/19 16:15 10/02/19 20:24 10/03/19 06:00 Glucose (Fingerstick) 137 mg/dL (70-99) 119 mg/dL (70-99) 190 mg/dL (70-99) White Blood Count 10.4 x10^3/uL (4.0-11.0) Red Blood Count 4.36 x10^6/uL (3.50-5.40) Hemoglobin 10.9 g/dL (12.0-15.5) Hematocrit 34.4 % (36.0-47.0) Mean Corpuscular Volume 79 fL (79-100) Mean Corpuscular Hemoglobin 25 pg (25-35) Mean Corpuscular Hemoglobin Concent 32 g/dL (31-37) Red Cell Distribution Width 15.7 % (11.5-14.5) Platelet Count 220 x10^3/uL (140-400) Neutrophils (%) (Auto) 67 % (31-73) Lymphocytes (%) (Auto) 21 % (24-48) Monocytes (%) (Auto) 8 % (0-9) Eosinophils (%) (Auto) 3 % (0-3) Basophils (%) (Auto) 1 % (0-3) Neutrophils # (Auto) 7.0 x10^3/uL (1.8-7.7) Lymphocytes # (Auto) 2.2 x10^3/uL (1.0-4.8) Monocytes # (Auto) 0.8 x10^3/uL (0.0-1.1) Eosinophils # (Auto) 0.3 x10^3/uL (0.0-0.7) Basophils # (Auto) 0.1 x10^3/uL (0.0-0.2) Sodium Level 138 mmol/L (136-145) Potassium Level 3.4 mmol/L (3.5-5.1) Chloride Level 104 mmol/L (98-107) Carbon Dioxide Level 27 mmol/L (21-32) Anion Gap 7 (6-14) Blood Urea Nitrogen 38 mg/dL (7-20) Creatinine 4.5 mg/dL (0.6-1.0) Estimated GFR (Cockcroft-Gault) 11.9 BUN/Creatinine Ratio 8 (6-20) Glucose Level 168 mg/dL (70-99) Calcium Level 8.5 mg/dL (8.5-10.1) Phosphorus Level 3.7 mg/dL (2.6-4.7) Magnesium Level 1.3 mg/dL (1.8-2.4) Total Bilirubin 0.3 mg/dL (0.2-1.0) Aspartate Amino Transf (AST/SGOT) 14 U/L (15-37) Alanine Aminotransferase (ALT/SGPT) 16 U/L (14-59) Alkaline Phosphatase 91 U/L (46-116) Total Protein 6.5 g/dL (6.4-8.2) Albumin 2.3 g/dL (3.4-5.0) Albumin/Globulin Ratio 0.5 (1.0-1.7) Test 10/03/19 07:39 Glucose (Fingerstick) 135 mg/dL (70-99) Medications Current Medications Glucose (Insta-Glucose) 15 gm STK-MED ONCE .ROUTE ; Start 09/28/19 at 22:52; Stop 09/28/19 at 22:52; Status DC Dextrose (Dextrose 50%-Water Syringe) 25 gm STK-MED ONCE IV ; Start 09/28/19 at 22:52; Stop 09/28/19 at 22:52; Status DC Dextrose (Dextrose 50%-Water Syringe) 25 gm 1X ONCE IV Last administered on 09/28/19at 23:10; Start 09/28/19 at 23:15; Stop 09/28/19 at 23:16; Status DC Sodium Chloride 1,000 ml @ 1,000 mls/hr 1X ONCE IV ; Start 09/29/19 at 00:00; Stop 09/29/19 at 01:10; Status DC Dextrose (Dextrose 50%-Water Syringe) 25 gm 1X ONCE IV Last administered on 09/29/19at 00:24; Start 09/29/19 at 00:30; Stop 09/29/19 at 00:31; Status DC Dextrose 1,000 ml @ 150 mls/hr 1X ONCE IV Last administered on 09/29/19at 00:30; Start 09/29/19 at 00:30; Stop 09/29/19 at 07:09; Status DC Glucose (Insta-Glucose) 15 gm 1X ONCE PO Last administered on 09/29/19at 00:21; Start 09/29/19 at 00:30; Stop 09/29/19 at 00:31; Status DC Ondansetron HCl (Zofran) 4 mg PRN Q8HRS PRN IV NAUSEA/VOMITING; Start 09/29/19 at 04:45; Stop 09/30/19 at 04:44; Status DC Amlodipine Besylate (Norvasc) 10 mg DAILY PO Last administered on 10/03/19at 08:24; Start 09/29/19 at 09:00 Aspirin (Ecotrin) 81 mg DAILYWBKFT PO Last administered on 10/03/19at 08:24; Start 09/29/19 at 09:00 Clonidine HCl (Catapres) 0.1 mg BID PO Last administered on 10/01/19at 08:19; Start 09/29/19 at 09:00; Stop 10/01/19 at 14:56; Status DC Pantoprazole Sodium (Protonix) 40 mg DAILYAC PO Last administered on 10/03/19at 06:08; Start 09/29/19 at 09:00 Non-Formulary Medication (Fluticasone/ Umeclidin/ Vilanter (Trelegy Ellipta 100-62.5-25)) 1 each BID IH ; Start 09/29/19 at 09:00; Status UNV Albuterol/ Ipratropium (Duoneb) 3 ml RTQID NEB Last administered on 10/03/19at 07:26; Start 09/29/19 at 09:00 Budesonide (Pulmicort) 0.5 mg RTBID NEB Last administered on 10/03/19at 07:26; Start 09/29/19 at 09:00 Sodium Bicarbonate 50 meq/Sodium Chloride 1,050 ml @ 50 mls/hr Q21H IV Last administered on 10/01/19at 08:21; Start 09/29/19 at 09:00; Stop 10/01/19 at 13:02; Status DC Heparin Sodium (Porcine) (Heparin Sodium) 5,000 unit BID SQ Last administered on 10/03/19at 08:38; Start 09/29/19 at 14:00 Magnesium Sulfate/ Dextrose 100 ml @ 100 mls/hr 1X ONCE IV Last administered on 09/30/19at 11:11; Start 09/30/19 at 10:15; Stop 09/30/19 at 11:14; Status DC Potassium Chloride (Klor-Con) 40 meq 1X ONCE PO Last administered on 09/30/19at 11:12; Start 09/30/19 at 10:15; Stop 09/30/19 at 10:16; Status DC Insulin Human Lispro (HumaLOG) 0-7 UNITS TIDWMEALS SQ Last administered on 09/30/19at 17:53; Start 09/30/19 at 17:00 Dextrose (Dextrose 50%-Water Syringe) 12.5 gm PRN Q15MIN PRN IV SEE COMMENTS; Start 09/30/19 at 16:45 Oxycodone/ Acetaminophen (Percocet 5/325) 1 tab PRN Q4HRS PRN PO PAIN Last administered on 10/03/19at 04:53; Start 09/30/19 at 16:45 Metoprolol Tartrate (Lopressor) 50 mg BID PO Last administered on 10/03/19at 08:23; Start 10/01/19 at 21:00 Metoprolol Tartrate (Lopressor) 50 mg 1X ONCE PO Last administered on 10/01/19at 12:09; Start 10/01/19 at 12:15; Stop 10/01/19 at 12:16; Status DC Potassium Chloride (Klor-Con) 40 meq 1X ONCE PO Last administered on 10/01/19at 12:09; Start 10/01/19 at 12:15; Stop 10/01/19 at 12:16; Status DC Clonidine HCl (Catapres) 0.1 mg TID PO Last administered on 10/03/19at 08:24; Start 10/01/19 at 15:00 Nicotine (Nicoderm Cq 21mg) 1 patch DAILY TD ; Start 10/02/19 at 09:00; Stop 10/01/19 at 15:06; Status DC Nicotine (Nicoderm Cq 21mg) 1 patch DAILY TD Last administered on 10/02/19at 07:43; Start 10/01/19 at 15:15 Sodium Chloride 1,000 ml @ 100 mls/hr Q10H IV Last administered on 10/03/19at 06:08; Start 10/02/19 at 10:00 Fluticasone Propionate (Flonase) 2 spray DAILY NS Last administered on 10/03/19 at 08:25; Start 10/03/19 at 09:00 Active Scripts Active Aspirin Ec (Aspirin) 81 Mg Tablet. 81 Mg PO DAILYWBKFT 30 Days Reported Protonix (Pantoprazole Sodium) 40 Mg Tablet. 40 Mg PO DAILYAC Catapres (Clonidine Hcl) 0.1 Mg Tablet 1 Tab PO TID Trelegy Ellipta 100-62.5-25 (Fluticasone/Umeclidin/Vilanter) 1 Each Blst.w.dev 1 Each IH BID Losartan-Hctz 100-25 Mg Tab (Losartan/Hydrochlorothiazide) 1 Each Tablet 1 Each PO DAILY Albuterol Sulfate Hfa Inhaler (Albuterol Sulfate) 8.5 Gm Hfa.aer.ad 8.5 Gm IH Amlodipine Besylate 10 Mg Tablet 10 Mg PO DAILY Glimepiride 1 Mg Tablet 2 Mg PO BIDWMEALS Vitals/I & O Vital Sign - Last 24 Hours 10/02/19 10/02/19 10/02/19 10/02/19 10:00 11:01 11:53 11:59 Temp 99.1 99.1 Pulse 77 Resp 16 16 20 B/P (MAP) 139/96 (110) Pulse Ox 97 92 O2 Delivery Room Air Room Air Room Air Room Air 10/02/19 10/02/19 10/02/19 10/02/19 13:32 15:51 15:53 16:35 Temp 98.8 98.8 Pulse 88 76 Resp 22 16 B/P (MAP) 153/92 168/81 (110) Pulse Ox 95 92 O2 Delivery Room Air Room Air Room Air 10/02/19 10/02/19 10/02/19 10/02/19 17:52 19:00 20:00 20:00 Temp 99.0 99.0 Pulse 75 Resp 16 20 B/P (MAP) 180/101 (127) 173/85 (114) Pulse Ox 93 O2 Delivery Room Air Room Air Room Air 10/02/19 10/02/19 10/02/19 10/02/19 20:19 20:27 20:27 23:00 Temp 99.1 99.1 Pulse 75 75 61 Resp 18 B/P (MAP) 173/85 173/85 189/98 (128) Pulse Ox 100 99 O2 Delivery Room Air Room Air 10/03/19 10/03/19 10/03/19 10/03/19 03:37 04:53 05:53 07:00 Temp 99.4 97.7 99.4 97.7 Pulse 76 77 Resp 20 20 20 18 B/P (MAP) 185/105 (131) 184/108 (133) Pulse Ox 95 95 95 94 O2 Delivery Room Air Room Air Room Air Room Air 10/03/19 10/03/19 10/03/19 10/03/19 07:26 08:23 08:24 08:24 Pulse 77 77 77 B/P (MAP) 184/108 184/108 184/108 Pulse Ox 98 O2 Delivery Room Air Intake and Output 10/02/19 10/02/19 10/03/19 15:00 23:00 07:00 Intake Total 200 ml Balance 200 ml KAROLINE BUSTOS MD Oct 03, 2019 09:33
--- NOTE | 2019-10-03 10:48 | NUR ---
SW following. Discussed with RN, pt from home with son, chart states consider dialysis Thursday (today) if not better - awaiting confirmation of whether pt will have dialysis today or not. PT/OT recommending SNU - SW spoke with therapy advising SNU facilities not taking medicaid - needs to be acute rehab or home health. Therapy to reevaluate today - RN states pt is ambulatory. SW will continue to follow.
--- NOTE | 2019-10-03 10:59 | PDOC ---
PULMONARY PROGRESS NOTES Subjective on RA, denies sob has cough 2/2 post nasal drip Vitals Vital Signs Date Time Temp Pulse Resp B/P (MAP) Pulse Ox O2 Delivery O2 Flow Rate FiO2 10/03/19 08:24 77 184/108 10/03/19 07:26 98 Room Air 10/03/19 07:00 97.7 18 97.7 ROS: No Nausea, No Chest Pain, No Abdominal Pain, No Increase Cough General: Alert, Oriented X4 Lungs: Clear Cardiovascular: S1, S2 Abdomen: Soft, Non-tender, Other (obese) Neuro Exam: Alert, Oriented Extremities: Other (trace BLE ) Skin: Warm, Dry Labs Laboratory Tests Test 10/01/19 11:49 10/01/19 17:09 10/01/19 20:33 10/02/19 05:05 Glucose (Fingerstick) 156 mg/dL (70-99) 196 mg/dL (70-99) 215 mg/dL (70-99) Sodium Level 143 mmol/L (136-145) Potassium Level 3.7 mmol/L (3.5-5.1) Chloride Level 104 mmol/L (98-107) Carbon Dioxide Level 27 mmol/L (21-32) Anion Gap 12 (6-14) Blood Urea Nitrogen 45 mg/dL (7-20) Creatinine 5.0 mg/dL (0.6-1.0) Estimated GFR (Cockcroft-Gault) 10.6 BUN/Creatinine Ratio 9 (6-20) Glucose Level 138 mg/dL (70-99) Calcium Level 8.9 mg/dL (8.5-10.1) Total Bilirubin 0.1 mg/dL (0.2-1.0) Aspartate Amino Transf (AST/SGOT) 13 U/L (15-37) Alanine Aminotransferase (ALT/SGPT) 21 U/L (14-59) Alkaline Phosphatase 120 U/L (46-116) Total Protein 6.4 g/dL (6.4-8.2) Albumin 2.7 g/dL (3.4-5.0) Albumin/Globulin Ratio 0.7 (1.0-1.7) Test 10/02/19 07:04 10/02/19 11:49 10/02/19 16:15 10/02/19 20:24 Glucose (Fingerstick) 141 mg/dL (70-99) 137 mg/dL (70-99) 119 mg/dL (70-99) 190 mg/dL (70-99) Test 10/03/19 06:00 10/03/19 07:39 White Blood Count 10.4 x10^3/uL (4.0-11.0) Red Blood Count 4.36 x10^6/uL (3.50-5.40) Hemoglobin 10.9 g/dL (12.0-15.5) Hematocrit 34.4 % (36.0-47.0) Mean Corpuscular Volume 79 fL (79-100) Mean Corpuscular Hemoglobin 25 pg (25-35) Mean Corpuscular Hemoglobin Concent 32 g/dL (31-37) Red Cell Distribution Width 15.7 % (11.5-14.5) Platelet Count 220 x10^3/uL (140-400) Neutrophils (%) (Auto) 67 % (31-73) Lymphocytes (%) (Auto) 21 % (24-48) Monocytes (%) (Auto) 8 % (0-9) Eosinophils (%) (Auto) 3 % (0-3) Basophils (%) (Auto) 1 % (0-3) Neutrophils # (Auto) 7.0 x10^3/uL (1.8-7.7) Lymphocytes # (Auto) 2.2 x10^3/uL (1.0-4.8) Monocytes # (Auto) 0.8 x10^3/uL (0.0-1.1) Eosinophils # (Auto) 0.3 x10^3/uL (0.0-0.7) Basophils # (Auto) 0.1 x10^3/uL (0.0-0.2) Sodium Level 138 mmol/L (136-145) Potassium Level 3.4 mmol/L (3.5-5.1) Chloride Level 104 mmol/L (98-107) Carbon Dioxide Level 27 mmol/L (21-32) Anion Gap 7 (6-14) Blood Urea Nitrogen 38 mg/dL (7-20) Creatinine 4.5 mg/dL (0.6-1.0) Estimated GFR (Cockcroft-Gault) 11.9 BUN/Creatinine Ratio 8 (6-20) Glucose Level 168 mg/dL (70-99) Calcium Level 8.5 mg/dL (8.5-10.1) Phosphorus Level 3.7 mg/dL (2.6-4.7) Magnesium Level 1.3 mg/dL (1.8-2.4) Total Bilirubin 0.3 mg/dL (0.2-1.0) Aspartate Amino Transf (AST/SGOT) 14 U/L (15-37) Alanine Aminotransferase (ALT/SGPT) 16 U/L (14-59) Alkaline Phosphatase 91 U/L (46-116) Total Protein 6.5 g/dL (6.4-8.2) Albumin 2.3 g/dL (3.4-5.0) Albumin/Globulin Ratio 0.5 (1.0-1.7) Glucose (Fingerstick) 135 mg/dL (70-99) Laboratory Tests Test 10/02/19 11:49 10/02/19 16:15 10/02/19 20:24 10/03/19 06:00 Glucose (Fingerstick) 137 mg/dL (70-99) 119 mg/dL (70-99) 190 mg/dL (70-99) White Blood Count 10.4 x10^3/uL (4.0-11.0) Red Blood Count 4.36 x10^6/uL (3.50-5.40) Hemoglobin 10.9 g/dL (12.0-15.5) Hematocrit 34.4 % (36.0-47.0) Mean Corpuscular Volume 79 fL (79-100) Mean Corpuscular Hemoglobin 25 pg (25-35) Mean Corpuscular Hemoglobin Concent 32 g/dL (31-37) Red Cell Distribution Width 15.7 % (11.5-14.5) Platelet Count 220 x10^3/uL (140-400) Neutrophils (%) (Auto) 67 % (31-73) Lymphocytes (%) (Auto) 21 % (24-48) Monocytes (%) (Auto) 8 % (0-9) Eosinophils (%) (Auto) 3 % (0-3) Basophils (%) (Auto) 1 % (0-3) Neutrophils # (Auto) 7.0 x10^3/uL (1.8-7.7) Lymphocytes # (Auto) 2.2 x10^3/uL (1.0-4.8) Monocytes # (Auto) 0.8 x10^3/uL (0.0-1.1) Eosinophils # (Auto) 0.3 x10^3/uL (0.0-0.7) Basophils # (Auto) 0.1 x10^3/uL (0.0-0.2) Sodium Level 138 mmol/L (136-145) Potassium Level 3.4 mmol/L (3.5-5.1) Chloride Level 104 mmol/L (98-107) Carbon Dioxide Level 27 mmol/L (21-32) Anion Gap 7 (6-14) Blood Urea Nitrogen 38 mg/dL (7-20) Creatinine 4.5 mg/dL (0.6-1.0) Estimated GFR (Cockcroft-Gault) 11.9 BUN/Creatinine Ratio 8 (-20) Glucose Level 168 mg/dL (70-99) Calcium Level 8.5 mg/dL (8.5-10.1) Phosphorus Level 3.7 mg/dL (2.6-4.7) Magnesium Level 1.3 mg/dL (1.8-2.4) Total Bilirubin 0.3 mg/dL (0.2-1.0) Aspartate Amino Transf (AST/SGOT) 14 U/L (15-37) Alanine Aminotransferase (ALT/SGPT) 16 U/L (14-59) Alkaline Phosphatase 91 U/L (46-116) Total Protein 6.5 g/dL (6.4-8.2) Albumin 2.3 g/dL (3.4-5.0) Albumin/Globulin Ratio 0.5 (1.0-1.7) Test 10/03/19 07:39 Glucose (Fingerstick) 135 mg/dL (70-99) Medications Active Scripts Medications Dose Route/Sig Max Daily Dose Days Date Category Protonix (Pantoprazole Sodium) 40 Mg Tablet. 40 Mg PO DAILYAC 09/29/19 Reported Catapres (Clonidine Hcl) 0.1 Mg Tablet 1 Tab PO BID 09/29/19 Reported Aspirin Ec (Aspirin) 81 Mg Tablet. 81 Mg PO DAILYWBKFT 30 07/28/18 Rx Trelegy Ellipta 100-62.5-25 (Fluticasone/Umeclidin/Vilanter) 1 Each Blst.w.dev 1 Each IH BID 07/27/18 Reported Losartan-Hctz 100-25 Mg Tab (Losartan/Hydrochlorothiazide) 1 Each Tablet 1 Each PO DAILY 07/27/18 Reported Albuterol Sulfate Hfa Inhaler (Albuterol Sulfate) 8.5 Gm Hfa.aer.ad 8.5 Gm IH 07/06/13 Reported Amlodipine Besylate 10 Mg Tablet 10 Mg PO DAILY 07/06/13 Reported Glimepiride 1 Mg Tablet 2 Mg PO BIDWMEALS 07/06/13 Reported Comments CXR 09/28/19 Impression: Enlargement of the cardiomediastinal silhouette with resultant obscuration of the left lower lung. No other noteworthy abnormality of the chest. Impression . IMPRESSION: 1. Acute hypoxic respiratory failure secondary to chronic obstructive pulmonary disease exacerbation- resolved 2. Morbid obesity also contributing to chronic hypoxia. 3. Suspected obstructive sleep apnea. 4. Acute kidney injury- Plan . RECOMMENDATIONS: 1. 02 titration, 6 min walk at dc, 2. Continue DuoNeb /Pulmicort. 3. Follow renal recommendations ,on IVF 5. PFTs as an outpatient and Consider sleep study as an outpatient. 6. HTN per PCP 7. advised to exercise and lose wt Discussed with RN, pt. ADRIAN CERNA MD Oct 03, 2019 10:59
[2019-10-03 11:00] VITALS: BP 171/90
--- NOTE | 2019-10-03 13:06 | PDOC ---
SUBJECTIVE ROS No complaints, No N/V , reports Good UOP OBJECTIVE Vital Signs Vital Signs Date Time Temp Pulse Resp B/P (MAP) Pulse Ox O2 Delivery O2 Flow Rate FiO2 10/03/19 12:22 Room Air 10/03/19 11:27 96 10/03/19 11:00 98.3 91 18 171/90 (117) 98.3 I & 0 Intake and Output 10/03/19 07:00 Intake Total 200 ml Balance 200 ml Intake Oral 200 ml # Voids 5 PHYSICAL EXAM Physical Exam GEN: NAD HEEN: OM moist NECK: supple CVS: S1S2, [] Murmur, No Gallop, No Rub,[] Edema RESP: decrease at bases, No Acc. Muscle Use GI: BS + ve, Obese : No CVA tenderness, No Suprapubic Tenderness, No sheikh DIAGNOSIS/ASSESSMENT Assessment & Plan JONO suspect 2/2 ATN due to Dehydration- at presentation Cr 5.3 Improving -slowly , not back to baseline , Clinically asymptomatic If does not recover to baseline may need to start HD Monitor, supportive care, Avoid nephrotoxins, strict I/O CKD stage 4 - baseline Cr 2.7-3.0 Pt denies aware of CKD , states didn't see renal as OP Was referred to [facility] neph[facility] per Dr. Gong's note from July 2018, was not seen Renal Cyst- reported on US Several small hypoattenuating cystic lesions within the left kidney largest measuring 2 cm in diameter representing simple cysts. Other smaller lesion measuring approximately 1.2 cm at the lower pole of the left kidney is not completely evaluated on this study. Further evaluation with nonemergent renal protocol CT or MRI is recommended nonemergent/outpatient setting. Acute hypoxic respiratory failure secondary to chronic obstructive pulmonary disease exacerbation- resolved DM II- presented with Hypoglycemia HTN-Uncontrolled , antihypertensives COMMENT/RELEVANT DATA Meds Current Medications Medications (Trade) Dose Ordered Sig/Howard Start Time Stop Time Status Last Admin Dose Admin Albuterol/ Ipratropium (Duoneb) 3 ml RTQID 09/29/19 09:00 10/03/19 11:27 3 ML Amlodipine Besylate (Norvasc) 10 mg DAILY 09/29/19 09:00 10/03/19 08:24 10 MG Aspirin (Ecotrin) 81 mg DAILYWBKFT 09/29/19 09:00 10/03/19 08:24 81 MG Budesonide (Pulmicort) 0.5 mg RTBID 09/29/19 09:00 10/03/19 07:26 0.5 MG Clonidine HCl (Catapres) 0.1 mg TID 10/01/19 15:00 10/03/19 08:24 0.1 MG Dextrose (Dextrose 50%-Water Syringe) 12.5 gm PRN Q15MIN PRN 09/30/19 16:45 Fluticasone Propionate (Flonase) 2 spray DAILY 10/03/19 09:00 10/03/19 08:25 2 SPRAY Glucose (Insta-Glucose) 15 gm 1X ONCE 09/29/19 00:30 09/29/19 00:31 DC 09/29/19 00:21 15 GM Heparin Sodium (Porcine) (Heparin Sodium) 5,000 unit BID 09/29/19 14:00 10/03/19 08:38 5,000 UNIT Insulin Human Lispro (HumaLOG) 0-7 UNITS TIDWMEALS 09/30/19 17:00 10/03/19 11:57 3 UNITS Magnesium Sulfate/ Dextrose 100 ml @ 100 mls/hr 1X ONCE 09/30/19 10:15 09/30/19 11:14 DC 09/30/19 11:11 100 MLS/HR Metoprolol Tartrate (Lopressor) 50 mg 1X ONCE 10/01/19 12:15 10/01/19 12:16 DC 10/01/19 12:09 50 MG Nicotine (Nicoderm Cq 21mg) 1 patch DAILY 10/01/19 15:15 10/02/19 07:43 1 PATCH Non-Formulary Medication (Fluticasone/ Umeclidin/ Vilanter (Trelegy Ellipta 100-62.5-25)) 1 each BID 09/29/19 09:00 UNV Ondansetron HCl (Zofran) 4 mg PRN Q8HRS PRN 09/29/19 04:45 09/30/19 04:44 DC Oxycodone/ Acetaminophen (Percocet 5/325) 1 tab PRN Q4HRS PRN 09/30/19 16:45 10/03/19 11:09 1 TAB Pantoprazole Sodium (Protonix) 40 mg DAILYAC 09/29/19 09:00 10/03/19 06:08 40 MG Potassium Chloride (Klor-Con) 40 meq 1X ONCE 10/01/19 12:15 10/01/19 12:16 DC 10/01/19 12:09 40 MEQ Sodium Bicarbonate 50 meq/Sodium Chloride 1,050 ml @ 50 mls/hr Q21H 09/29/19 09:00 10/01/19 13:02 DC 10/01/19 08:21 100 MLS/HR Sodium Chloride 1,000 ml @ 100 mls/hr Q10H 10/02/19 10:00 10/03/19 06:08 100 MLS/HR Lab Laboratory Tests Test 10/02/19 16:15 10/02/19 20:24 10/03/19 06:00 10/03/19 07:39 Glucose (Fingerstick) 119 mg/dL (70-99) 190 mg/dL (70-99) 135 mg/dL (70-99) White Blood Count 10.4 x10^3/uL (4.0-11.0) Red Blood Count 4.36 x10^6/uL (3.50-5.40) Hemoglobin 10.9 g/dL (12.0-15.5) Hematocrit 34.4 % (36.0-47.0) Mean Corpuscular Volume 79 fL (79-100) Mean Corpuscular Hemoglobin 25 pg (25-35) Mean Corpuscular Hemoglobin Concent 32 g/dL (31-37) Red Cell Distribution Width 15.7 % (11.5-14.5) Platelet Count 220 x10^3/uL (140-400) Neutrophils (%) (Auto) 67 % (31-73) Lymphocytes (%) (Auto) 21 % (24-48) Monocytes (%) (Auto) 8 % (0-9) Eosinophils (%) (Auto) 3 % (0-3) Basophils (%) (Auto) 1 % (0-3) Neutrophils # (Auto) 7.0 x10^3/uL (1.8-7.7) Lymphocytes # (Auto) 2.2 x10^3/uL (1.0-4.8) Monocytes # (Auto) 0.8 x10^3/uL (0.0-1.1) Eosinophils # (Auto) 0.3 x10^3/uL (0.0-0.7) Basophils # (Auto) 0.1 x10^3/uL (0.0-0.2) Sodium Level 138 mmol/L (136-145) Potassium Level 3.4 mmol/L (3.5-5.1) Chloride Level 104 mmol/L (98-107) Carbon Dioxide Level 27 mmol/L (21-32) Anion Gap 7 (6-14) Blood Urea Nitrogen 38 mg/dL (7-20) Creatinine 4.5 mg/dL (0.6-1.0) Estimated GFR (Cockcroft-Gault) 11.9 BUN/Creatinine Ratio 8 (6-20) Glucose Level 168 mg/dL (70-99) Calcium Level 8.5 mg/dL (8.5-10.1) Phosphorus Level 3.7 mg/dL (2.6-4.7) Magnesium Level 1.3 mg/dL (1.8-2.4) Total Bilirubin 0.3 mg/dL (0.2-1.0) Aspartate Amino Transf (AST/SGOT) 14 U/L (15-37) Alanine Aminotransferase (ALT/SGPT) 16 U/L (14-59) Alkaline Phosphatase 91 U/L (46-116) Total Protein 6.5 g/dL (6.4-8.2) Albumin 2.3 g/dL (3.4-5.0) Albumin/Globulin Ratio 0.5 (1.0-1.7) Test 10/03/19 11:32 Glucose (Fingerstick) 151 mg/dL (70-99) Results All relevant outside records, renal labs, imaging studies, telemetry/EKG's were reviewed. Justicifation of Admission Dx: Justifications for Admission: Justification of Admission Dx: Yes Acute Renal Failure: Serum Cr > 4mg/dL KAE VELASQUEZ MD Oct 03, 2019 13:06
--- NOTE | 2019-10-03 14:53 | NUR ---
SS following up with discharge planning. SS reviewed pt chart and discussed with Bety SOLANO. PT/OT recommending nursing home unit. SS met with pt and discussed inpatient rehabilitation and medicaid coverage. Pt would either need to go to acute rehabilitation or home with home healthcare. Pt reported that she lives at home with her son and will return to home with her son. Pt declined PT today. SS discussed home healthcare and pt declined stating that her son will assist her. Pt's RN notified.
[2019-10-03 15:00] VITALS: BP 169/89
[2019-10-03 19:00] VITALS: BP 142/82
[2019-10-03 23:00] VITALS: BP 156/87
[2019-10-04] MEDS: IV NORMAL SALINE 1000ML BAG 1,000 ML IV SCH ×2 (02:30→11:39)
[2019-10-04 03:00] VITALS: BP 172/101
[2019-10-04] MEDS: PANTOPRAZOLE 40 MG TABLET.DR. PO SCH (06:48)
[2019-10-04 07:15] VITALS: BP_SYST 108; BP_SYST 189; BP_DIAS 106
--- NOTE | 2019-10-04 07:15 | NUR ---
During shift report, patient expressed concerned that she was given medication without her knowledge, "...a suppository or something to help me poo". This RN assured patient that all medication was explained prior to administration and no medication was given to her without her knowledge. Patient continued stating, "I know my body. I don't just poo without help". This RN again assured patient that no stool softener or laxative was administered to patient during the PM shift. Patient now up in chair, call light within reach and no other needs voiced at this time.
[2019-10-04] MEDS: IPRATRPIUM/ALBUTEROL 0.5/2.5MG 3 ML NEBU. NEB SCH ×3 (07:28→15:16)
[2019-10-04] MEDS: BUDESONIDE 0.5 MG/2 ML NEBU. NEB SCH (07:28)
[2019-10-04] MEDS: INSULIN LISPRO 300 UNITS/3 ML VIAL. SQ SCH ×3 (08:00→17:54)
[2019-10-04] MEDS: ASPIRIN ENTERIC COATED 81 MG TABLET.DR. PO SCH (08:56)
[2019-10-04] MEDS: METOPROLOL TART IMMED RELEASE 50 MG TABLET. PO SCH (08:57)
[2019-10-04] MEDS: cloNIDine HCL 0.1 MG TABLET PO SCH ×2 (08:57→14:23)
[2019-10-04] MEDS: oxyCODONE/APAP 5/325 1 TAB TABLET PO PRN ×2 (08:58→14:33)
[2019-10-04] MEDS: amLODIPine BESYLATE 10 MG TABLET PO SCH (08:58)
[2019-10-04] MEDS: FLUTICASONE 50MCG/NASAL SPRAY 16GM BOTTLE. NS SCH (08:59)
[2019-10-04] MEDS: NICOTINE 21MG PATCH. TD SCH (08:59)
[2019-10-04 09:04] LABS: BASO % 1 % (0-3); EOS # 0.3 x10^3/uL (0.0-0.7); EOS % 3 % (0-3); HEMOGLOBIN 10.9 g/dL (12.0-15.5); LYMPH % 21 % (24-48); MEAN CORPUSCULAR HEMOGLOBIN 26 pg (25-35); MEAN CORPUSCULAR HGB CONC 32 g/dL (31-37); MEAN CORPUSCULAR VOLUME 80 fL (79-100); MONO # 0.7 x10^3/uL (0.0-1.1); MONO % 8 % (0-9); NEUT # 6.5 x10^3/uL (1.8-7.7); NEUT % 68 % (31-73); PLATELET COUNT 218 x10^3/uL (140-400); RED BLOOD COUNT 4.26 x10^6/uL (3.50-5.40); RED CELL DISTRIBUTION WIDTH 15.7 % (11.5-14.5); WHITE BLOOD COUNT 9.5 x10^3/uL (4.0-11.0)
[2019-10-04] MEDS: HEPARIN for SUB-Q USE 5,000 UNIT/ML VIAL. SQ SCH (09:08)
--- NOTE | 2019-10-04 09:13 | NUR ---
SW following. Discussed with RN, pt from home with son, has declined SNU and Home Health. Pt creatinine still up, did not need dialysis yesterday. SW will continue to follow.
[2019-10-04 09:22] LABS: ALBUMIN 2.2 g/dL (3.4-5.0); ALBUMIN/GLOBULIN RATIO 0.6 (1.0-1.7); CALCIUM 8.3 mg/dL (8.5-10.1); CREATININE 4.3 mg/dL (0.6-1.0); GFR 12.6; POTASSIUM 3.6 mmol/L (3.5-5.1); TOTAL BILIRUBIN 0.2 mg/dL (0.2-1.0); TOTAL PROTEIN 6.2 g/dL (6.4-8.2)
--- NOTE | 2019-10-04 09:27 | PDOC ---
PROGRESS NOTES Chief Complaint Chief Complaint discharge dx ------ symptomatic hypoglycemia, metabolic encephalopathy, resolved DM2, oral agents only morbid obesity, BMI > 40 acute on chronic renal failure, has caused accumulation of DM2 med, and then the hypoglycemia CR 4.5 renal failure on CKD, cont current fluid, NEPHROLOGY FOLLOWING consult renal, cont IV fluid hypoxia, pulm following Acute hypoxic respiratory failure secondary to chronic obstructive pulmonary disease exacerbation- resolved Morbid obesity also contributing to chronic hypoxia. Pericardial effusion is again seen. ON CT Monitor, supportive care, Avoid nephrotoxins, FU BMP with PCP IN 5-7 days , d/c 10/03 ok with renal 36 MIN PT EXAM, CHART REVIEW, d/c planning > 50% OF TIME SPENT WITH EXAM, CHART REVIEW, PT CARE COORDINATION History of Present Illness History of Present Illness PLAN SLOW IMPROVEMENT IN RENAL FUNCTION. CONT IVF AT REDUCED RATE making good urine, creat not better, this may be ESRD, may need dialysis, renal following PT and OT oOB to chair creatinine not better renal, dm2 diet, pain with ambulation, very weak, will need placement nutrition consult Vitals Vitals Vital Signs Date Time Temp Pulse Resp B/P (MAP) Pulse Ox O2 Delivery O2 Flow Rate FiO2 10/04/19 08:58 Room Air 10/04/19 08:58 79 189/106 10/04/19 07:32 96 10/04/19 07:15 98.7 20 98.7 Physical Exam General: Alert, Oriented X3, Cooperative, No acute distress Heart: Regular rate, Normal S1, Normal S2, No murmurs, Gallops Lungs: Clear Abdomen: Normal bowel sounds, Soft, No tenderness, No hepatosplenomegaly, No masses Extremities: No clubbing, No cyanosis, No edema, Normal pulses, No tenderness/swelling Skin: No breakdown, No significant lesion Labs LABS Laboratory Tests Test 10/03/19 11:32 10/03/19 16:40 10/03/19 20:22 10/04/19 07:15 Glucose (Fingerstick) 151 mg/dL (70-99) 181 mg/dL (70-99) 178 mg/dL (70-99) 127 mg/dL (70-99) Test 10/04/19 08:45 White Blood Count 9.5 x10^3/uL (4.0-11.0) Red Blood Count 4.26 x10^6/uL (3.50-5.40) Hemoglobin 10.9 g/dL (12.0-15.5) Hematocrit 34.0 % (36.0-47.0) Mean Corpuscular Volume 80 fL (79-100) Mean Corpuscular Hemoglobin 26 pg (25-35) Mean Corpuscular Hemoglobin Concent 32 g/dL (31-37) Red Cell Distribution Width 15.7 % (11.5-14.5) Platelet Count 218 x10^3/uL (140-400) Neutrophils (%) (Auto) 68 % (31-73) Lymphocytes (%) (Auto) 21 % (24-48) Monocytes (%) (Auto) 8 % (0-9) Eosinophils (%) (Auto) 3 % (0-3) Basophils (%) (Auto) 1 % (0-3) Neutrophils # (Auto) 6.5 x10^3/uL (1.8-7.7) Lymphocytes # (Auto) 2.0 x10^3/uL (1.0-4.8) Monocytes # (Auto) 0.7 x10^3/uL (0.0-1.1) Eosinophils # (Auto) 0.3 x10^3/uL (0.0-0.7) Basophils # (Auto) 0.0 x10^3/uL (0.0-0.2) Sodium Level 140 mmol/L (136-145) Potassium Level 3.6 mmol/L (3.5-5.1) Chloride Level 106 mmol/L (98-107) Carbon Dioxide Level 26 mmol/L (21-32) Anion Gap 8 (6-14) Blood Urea Nitrogen 38 mg/dL (7-20) Creatinine 4.3 mg/dL (0.6-1.0) Estimated GFR (Cockcroft-Gault) 12.6 BUN/Creatinine Ratio 9 (6-20) Glucose Level 193 mg/dL (70-99) Calcium Level 8.3 mg/dL (8.5-10.1) Total Bilirubin 0.2 mg/dL (0.2-1.0) Aspartate Amino Transf (AST/SGOT) 14 U/L (15-37) Alanine Aminotransferase (ALT/SGPT) 13 U/L (14-59) Alkaline Phosphatase 92 U/L (46-116) Total Protein 6.2 g/dL (6.4-8.2) Albumin 2.2 g/dL (3.4-5.0) Albumin/Globulin Ratio 0.6 (1.0-1.7) Assessment and Plan Assessmemt and Plan Problems Medical Problems: (1) [id number] kidney injury Status: Acute (2) Adverse effect of sulfonylurea Status: Acute (3) Hypoglycemia Status: Acute Comment Review of Relevant I have reviewed the following items munir (where applicable) has been applied. Labs Laboratory Tests Test 10/02/19 11:49 10/02/19 16:15 10/02/19 20:24 10/03/19 06:00 Glucose (Fingerstick) 137 mg/dL (70-99) 119 mg/dL (70-99) 190 mg/dL (70-99) White Blood Count 10.4 x10^3/uL (4.0-11.0) Red Blood Count 4.36 x10^6/uL (3.50-5.40) Hemoglobin 10.9 g/dL (12.0-15.5) Hematocrit 34.4 % (36.0-47.0) Mean Corpuscular Volume 79 fL (79-100) Mean Corpuscular Hemoglobin 25 pg (25-35) Mean Corpuscular Hemoglobin Concent 32 g/dL (31-37) Red Cell Distribution Width 15.7 % (11.5-14.5) Platelet Count 220 x10^3/uL (140-400) Neutrophils (%) (Auto) 67 % (31-73) Lymphocytes (%) (Auto) 21 % (24-48) Monocytes (%) (Auto) 8 % (0-9) Eosinophils (%) (Auto) 3 % (0-3) Basophils (%) (Auto) 1 % (0-3) Neutrophils # (Auto) 7.0 x10^3/uL (1.8-7.7) Lymphocytes # (Auto) 2.2 x10^3/uL (1.0-4.8) Monocytes # (Auto) 0.8 x10^3/uL (0.0-1.1) Eosinophils # (Auto) 0.3 x10^3/uL (0.0-0.7) Basophils # (Auto) 0.1 x10^3/uL (0.0-0.2) Sodium Level 138 mmol/L (136-145) Potassium Level 3.4 mmol/L (3.5-5.1) Chloride Level 104 mmol/L (98-107) Carbon Dioxide Level 27 mmol/L (21-32) Anion Gap 7 (6-14) Blood Urea Nitrogen 38 mg/dL (7-20) Creatinine 4.5 mg/dL (0.6-1.0) Estimated GFR (Cockcroft-Gault) 11.9 BUN/Creatinine Ratio 8 (6-20) Glucose Level 168 mg/dL (70-99) Calcium Level 8.5 mg/dL (8.5-10.1) Phosphorus Level 3.7 mg/dL (2.6-4.7) Magnesium Level 1.3 mg/dL (1.8-2.4) Total Bilirubin 0.3 mg/dL (0.2-1.0) Aspartate Amino Transf (AST/SGOT) 14 U/L (15-37) Alanine Aminotransferase (ALT/SGPT) 16 U/L (14-59) Alkaline Phosphatase 91 U/L (46-116) Total Protein 6.5 g/dL (6.4-8.2) Albumin 2.3 g/dL (3.4-5.0) Albumin/Globulin Ratio 0.5 (1.0-1.7) Test 10/03/19 07:39 10/03/19 11:32 10/03/19 16:40 10/03/19 20:22 Glucose (Fingerstick) 135 mg/dL (70-99) 151 mg/dL (70-99) 181 mg/dL (70-99) 178 mg/dL (70-99) Test 10/04/19 07:15 10/04/19 08:45 Glucose (Fingerstick) 127 mg/dL (70-99) White Blood Count 9.5 x10^3/uL (4.0-11.0) Red Blood Count 4.26 x10^6/uL (3.50-5.40) Hemoglobin 10.9 g/dL (12.0-15.5) Hematocrit 34.0 % (36.0-47.0) Mean Corpuscular Volume 80 fL (79-100) Mean Corpuscular Hemoglobin 26 pg (25-35) Mean Corpuscular Hemoglobin Concent 32 g/dL (31-37) Red Cell Distribution Width 15.7 % (11.5-14.5) Platelet Count 218 x10^3/uL (140-400) Neutrophils (%) (Auto) 68 % (31-73) Lymphocytes (%) (Auto) 21 % (24-48) Monocytes (%) (Auto) 8 % (0-9) Eosinophils (%) (Auto) 3 % (0-3) Basophils (%) (Auto) 1 % (0-3) Neutrophils # (Auto) 6.5 x10^3/uL (1.8-7.7) Lymphocytes # (Auto) 2.0 x10^3/uL (1.0-4.8) Monocytes # (Auto) 0.7 x10^3/uL (0.0-1.1) Eosinophils # (Auto) 0.3 x10^3/uL (0.0-0.7) Basophils # (Auto) 0.0 x10^3/uL (0.0-0.2) Sodium Level 140 mmol/L (136-145) Potassium Level 3.6 mmol/L (3.5-5.1) Chloride Level 106 mmol/L (98-107) Carbon Dioxide Level 26 mmol/L (21-32) Anion Gap 8 (6-14) Blood Urea Nitrogen 38 mg/dL (7-20) Creatinine 4.3 mg/dL (0.6-1.0) Estimated GFR (Cockcroft-Gault) 12.6 BUN/Creatinine Ratio 9 (6-20) Glucose Level 193 mg/dL (70-99) Calcium Level 8.3 mg/dL (8.5-10.1) Total Bilirubin 0.2 mg/dL (0.2-1.0) Aspartate Amino Transf (AST/SGOT) 14 U/L (15-37) Alanine Aminotransferase (ALT/SGPT) 13 U/L (14-59) Alkaline Phosphatase 92 U/L (46-116) Total Protein 6.2 g/dL (6.4-8.2) Albumin 2.2 g/dL (3.4-5.0) Albumin/Globulin Ratio 0.6 (1.0-1.7) Laboratory Tests Test 10/03/19 11:32 10/03/19 16:40 10/03/19 20:22 10/04/19 07:15 Glucose (Fingerstick) 151 mg/dL (70-99) 181 mg/dL (70-99) 178 mg/dL (70-99) 127 mg/dL (70-99) Test 10/04/19 08:45 White Blood Count 9.5 x10^3/uL (4.0-11.0) Red Blood Count 4.26 x10^6/uL (3.50-5.40) Hemoglobin 10.9 g/dL (12.0-15.5) Hematocrit 34.0 % (36.0-47.0) Mean Corpuscular Volume 80 fL (79-100) Mean Corpuscular Hemoglobin 26 pg (25-35) Mean Corpuscular Hemoglobin Concent 32 g/dL (31-37) Red Cell Distribution Width 15.7 % (11.5-14.5) Platelet Count 218 x10^3/uL (140-400) Neutrophils (%) (Auto) 68 % (31-73) Lymphocytes (%) (Auto) 21 % (24-48) Monocytes (%) (Auto) 8 % (0-9) Eosinophils (%) (Auto) 3 % (0-3) Basophils (%) (Auto) 1 % (0-3) Neutrophils # (Auto) 6.5 x10^3/uL (1.8-7.7) Lymphocytes # (Auto) 2.0 x10^3/uL (1.0-4.8) Monocytes # (Auto) 0.7 x10^3/uL (0.0-1.1) Eosinophils # (Auto) 0.3 x10^3/uL (0.0-0.7) Basophils # (Auto) 0.0 x10^3/uL (0.0-0.2) Sodium Level 140 mmol/L (136-145) Potassium Level 3.6 mmol/L (3.5-5.1) Chloride Level 106 mmol/L (98-107) Carbon Dioxide Level 26 mmol/L (21-32) Anion Gap 8 (6-14) Blood Urea Nitrogen 38 mg/dL (7-20) Creatinine 4.3 mg/dL (0.6-1.0) Estimated GFR (Cockcroft-Gault) 12.6 BUN/Creatinine Ratio 9 (6-20) Glucose Level 193 mg/dL (70-99) Calcium Level 8.3 mg/dL (8.5-10.1) Total Bilirubin 0.2 mg/dL (0.2-1.0) Aspartate Amino Transf (AST/SGOT) 14 U/L (15-37) Alanine Aminotransferase (ALT/SGPT) 13 U/L (14-59) Alkaline Phosphatase 92 U/L (46-116) Total Protein 6.2 g/dL (6.4-8.2) Albumin 2.2 g/dL (3.4-5.0) Albumin/Globulin Ratio 0.6 (1.0-1.7) Medications Current Medications Glucose (Insta-Glucose) 15 gm STK-MED ONCE .ROUTE ; Start 09/28/19 at 22:52; Stop 09/28/19 at 22:52; Status DC Dextrose (Dextrose 50%-Water Syringe) 25 gm STK-MED ONCE IV ; Start 09/28/19 at 22:52; Stop 09/28/19 at 22:52; Status DC Dextrose (Dextrose 50%-Water Syringe) 25 gm 1X ONCE IV Last administered on 09/28/19at 23:10; Start 09/28/19 at 23:15; Stop 09/28/19 at 23:16; Status DC Sodium Chloride 1,000 ml @ 1,000 mls/hr 1X ONCE IV ; Start 09/29/19 at 00:00; Stop 09/29/19 at 01:10; Status DC Dextrose (Dextrose 50%-Water Syringe) 25 gm 1X ONCE IV Last administered on 09/29/19at 00:24; Start 09/29/19 at 00:30; Stop 09/29/19 at 00:31; Status DC Dextrose 1,000 ml @ 150 mls/hr 1X ONCE IV Last administered on 09/29/19at 00:30; Start 09/29/19 at 00:30; Stop 09/29/19 at 07:09; Status DC Glucose (Insta-Glucose) 15 gm 1X ONCE PO Last administered on 09/29/19at 00:21; Start 09/29/19 at 00:30; Stop 09/29/19 at 00:31; Status DC Ondansetron HCl (Zofran) 4 mg PRN Q8HRS PRN IV NAUSEA/VOMITING; Start 09/29/19 at 04:45; Stop 09/30/19 at 04:44; Status DC Amlodipine Besylate (Norvasc) 10 mg DAILY PO Last administered on 10/04/19at 08:58; Start 09/29/19 at 09:00 Aspirin (Ecotrin) 81 mg DAILYWBKFT PO Last administered on 10/04/19at 08:56; Start 09/29/19 at 09:00 Clonidine HCl (Catapres) 0.1 mg BID PO Last administered on 10/01/19at 08:19; Start 09/29/19 at 09:00; Stop 10/01/19 at 14:56; Status DC Pantoprazole Sodium (Protonix) 40 mg DAILYAC PO Last administered on 10/04/19at 06:48; Start 09/29/19 at 09:00 Non-Formulary Medication (Fluticasone/ Umeclidin/ Vilanter (Trelegy Ellipta 100-62.5-25)) 1 each BID IH ; Start 09/29/19 at 09:00; Status UNV Albuterol/ Ipratropium (Duoneb) 3 ml RTQID NEB Last administered on 10/04/19at 07:28; Start 09/29/19 at 09:00 Budesonide (Pulmicort) 0.5 mg RTBID NEB Last administered on 10/04/19at 07:28; Start 09/29/19 at 09:00 Sodium Bicarbonate 50 meq/Sodium Chloride 1,050 ml @ 50 mls/hr Q21H IV Last administered on 10/01/19at 08:21; Start 09/29/19 at 09:00; Stop 10/01/19 at 13:02; Status DC Heparin Sodium (Porcine) (Heparin Sodium) 5,000 unit BID SQ Last administered on 10/04/19at 09:08; Start 09/29/19 at 14:00 Magnesium Sulfate/ Dextrose 100 ml @ 100 mls/hr 1X ONCE IV Last administered on 09/30/19at 11:11; Start 09/30/19 at 10:15; Stop 09/30/19 at 11:14; Status DC Potassium Chloride (Klor-Con) 40 meq 1X ONCE PO Last administered on 09/30/19at 11:12; Start 09/30/19 at 10:15; Stop 09/30/19 at 10:16; Status DC Insulin Human Lispro (HumaLOG) 0-7 UNITS TIDWMEALS SQ Last administered on 10/03/19at 17:02; Start 09/30/19 at 17:00 Dextrose (Dextrose 50%-Water Syringe) 12.5 gm PRN Q15MIN PRN IV SEE COMMENTS; Start 09/30/19 at 16:45 Oxycodone/ Acetaminophen (Percocet 5/325) 1 tab PRN Q4HRS PRN PO PAIN Last administered on 10/04/19at 08:58; Start 09/30/19 at 16:45 Metoprolol Tartrate (Lopressor) 50 mg BID PO Last administered on 10/04/19at 08:57; Start 10/01/19 at 21:00 Metoprolol Tartrate (Lopressor) 50 mg 1X ONCE PO Last administered on 10/01/19at 12:09; Start 10/01/19 at 12:15; Stop 10/01/19 at 12:16; Status DC Potassium Chloride (Klor-Con) 40 meq 1X ONCE PO Last administered on 10/01/19at 12:09; Start 10/01/19 at 12:15; Stop 10/01/19 at 12:16; Status DC Clonidine HCl (Catapres) 0.1 mg TID PO Last administered on 10/04/19at 08:57; Start 10/01/19 at 15:00 Nicotine (Nicoderm Cq 21mg) 1 patch DAILY TD ; Start 10/02/19 at 09:00; Stop 10/01/19 at 15:06; Status DC Nicotine (Nicoderm Cq 21mg) 1 patch DAILY TD Last administered on 10/02/19at 07:43; Start 10/01/19 at 15:15 Sodium Chloride 1,000 ml @ 100 mls/hr Q10H IV Last administered on 10/04/19at 02:30; Start 10/02/19 at 10:00 Fluticasone Propionate (Flonase) 2 spray DAILY NS Last administered on 10/03/19at 08:25; Start 10/03/19 at 09:00 Active Scripts Active Aspirin Ec (Aspirin) 81 Mg Tablet. 81 Mg PO DAILYWBKFT 30 Days Reported Protonix (Pantoprazole Sodium) 40 Mg Tablet. 40 Mg PO DAILYAC Catapres (Clonidine Hcl) 0.1 Mg Tablet 1 Tab PO TID Trelegy Ellipta 100-62.5-25 (Fluticasone/Umeclidin/Vilanter) 1 Each Blst.w.dev 1 Each IH BID Losartan-Hctz 100-25 Mg Tab (Losartan/Hydrochlorothiazide) 1 Each Tablet 1 Each PO DAILY Albuterol Sulfate Hfa Inhaler (Albuterol Sulfate) 8.5 Gm Hfa.aer.ad 8.5 Gm IH Amlodipine Besylate 10 Mg Tablet 10 Mg PO DAILY Glimepiride 1 Mg Tablet 2 Mg PO BIDWMEALS Vitals/I & O Vital Sign - Last 24 Hours 10/03/19 10/03/19 10/03/19 10/03/19 11:00 11:09 11:27 12:22 Temp 98.3 98.3 Pulse 91 Resp 18 B/P (MAP) 171/90 (117) Pulse Ox 93 96 O2 Delivery Room Air Room Air Room Air Room Air 10/03/19 10/03/19 10/03/19 10/03/19 15:00 15:28 15:32 19:00 Temp 98.2 99.8 98.2 99.8 Pulse 78 78 86 Resp 18 18 B/P (MAP) 169/89 (115) 169/89 142/82 (102) Pulse Ox 94 94 90 O2 Delivery Room Air Room Air Room Air 10/03/19 10/03/19 10/03/19 10/03/19 20:00 20:15 20:16 20:51 Pulse 80 B/P (MAP) 160/90 Pulse Ox 93 93 O2 Delivery Room Air Room Air Room Air 10/03/19 10/03/19 10/04/19 10/04/19 20:51 23:00 03:00 07:15 Temp 99.3 98.8 98.7 99.3 98.8 98.7 Pulse 80 64 75 79 Resp 18 18 20 B/P (MAP) 160/90 156/87 (110) 172/101 (124) 108/106 (107) Pulse Ox 90 93 95 O2 Delivery Room Air Room Air Room Air 10/04/19 10/04/19 10/04/19 10/04/19 07:30 07:32 08:57 08:57 Pulse 79 79 B/P (MAP) 189/106 189/106 Pulse Ox 96 96 O2 Delivery Room Air Room Air 10/04/19 10/04/19 08:58 08:58 Pulse 79 B/P (MAP) 189/106 O2 Delivery Room Air Intake and Output 10/03/19 10/03/19 10/04/19 15:00 23:00 07:00 Intake Total 540 ml 480 ml 3750 ml Balance 540 ml 480 ml 3750 ml KAROLINE BUSTOS MD Oct 04, 2019 09:27
--- NOTE | 2019-10-04 09:38 | PDOC ---
SUBJECTIVE ROS No complaints, No N/V , reports Good UOP OBJECTIVE Vital Signs Vital Signs Date Time Temp Pulse Resp B/P (MAP) Pulse Ox O2 Delivery O2 Flow Rate FiO2 10/04/19 08:58 Room Air 10/04/19 08:58 79 189/106 10/04/19 07:32 96 10/04/19 07:15 98.7 20 98.7 I & 0 Intake and Output 10/04/19 07:00 Intake Total 4770 ml Balance 4770 ml Intake Oral 1070 ml IV Total 3700 ml # Voids 1 PHYSICAL EXAM Physical Exam GEN: NAD HEEN: OM moist NECK: supple CVS: S1S2, [] Murmur, No Gallop, No Rub,[] Edema RESP: decrease at bases, No Acc. Muscle Use GI: BS + ve, Obese : No CVA tenderness, No Suprapubic Tenderness, No sheikh DIAGNOSIS/ASSESSMENT Assessment & Plan JONO suspect 2/2 ATN due to Dehydration- at presentation Cr 5.3 Improving -slowly , not back to baseline , Clinically asymptomatic If does not recover to baseline may need to start HD Monitor, supportive care, Avoid nephrotoxins, FU BMP with PCP IN 5-7 days , CKD stage 4 - baseline Cr 2.7-3.0 Pt denies aware of CKD , later reports she has seen [facility] of our practice x2 was advised renal Bx but she got scared and didnt keep fu appt Advised to make follow appt Renal Cyst- reported on US Several small hypoattenuating cystic lesions within the left kidney largest measuring 2 cm in diameter representing simple cysts. Other smaller lesion measuring approximately 1.2 cm at the lower pole of the left kidney is not completely evaluated on this study. Further evaluation with nonemergent renal protocol CT or MRI is recommended nonemergent/outpatient setting. Acute hypoxic respiratory failure secondary to chronic obstructive pulmonary disease exacerbation- resolved DM II- presented with Hypoglycemia HTN-Uncontrolled , antihypertensives Discussed with Pt and RN COMMENT/RELEVANT DATA Meds Current Medications Medications (Trade) Dose Ordered Sig/Howard Start Time Stop Time Status Last Admin Dose Admin Albuterol/ Ipratropium (Duoneb) 3 ml RTQID 09/29/19 09:00 10/04/19 07:28 3 ML Amlodipine Besylate (Norvasc) 10 mg DAILY 09/29/19 09:00 10/04/19 08:58 10 MG Aspirin (Ecotrin) 81 mg DAILYWBKFT 09/29/19 09:00 10/04/19 08:56 81 MG Budesonide (Pulmicort) 0.5 mg RTBID 09/29/19 09:00 10/04/19 07:28 0.5 MG Clonidine HCl (Catapres) 0.1 mg TID 10/01/19 15:00 10/04/19 08:57 0.1 MG Dextrose (Dextrose 50%-Water Syringe) 12.5 gm PRN Q15MIN PRN 09/30/19 16:45 Fluticasone Propionate (Flonase) 2 spray DAILY 10/03/19 09:00 10/03/19 08:25 2 SPRAY Glucose (Insta-Glucose) 15 gm 1X ONCE 09/29/19 00:30 09/29/19 00:31 DC 09/29/19 00:21 15 GM Heparin Sodium (Porcine) (Heparin Sodium) 5,000 unit BID 09/29/19 14:00 10/04/19 09:08 5,000 UNIT Insulin Human Lispro (HumaLOG) 0-7 UNITS TIDWMEALS 09/30/19 17:00 10/03/19 17:02 3 UNITS Magnesium Sulfate/ Dextrose 100 ml @ 100 mls/hr 1X ONCE 09/30/19 10:15 09/30/19 11:14 DC 09/30/19 11:11 100 MLS/HR Metoprolol Tartrate (Lopressor) 50 mg 1X ONCE 10/01/19 12:15 10/01/19 12:16 DC 10/01/19 12:09 50 MG Nicotine (Nicoderm Cq 21mg) 1 patch DAILY 10/01/19 15:15 10/02/19 07:43 1 PATCH Non-Formulary Medication (Fluticasone/ Umeclidin/ Vilanter (Trelegy Ellipta 100-62.5-25)) 1 each BID 09/29/19 09:00 UNV Ondansetron HCl (Zofran) 4 mg PRN Q8HRS PRN 09/29/19 04:45 09/30/19 04:44 DC Oxycodone/ Acetaminophen (Percocet 5/325) 1 tab PRN Q4HRS PRN 09/30/19 16:45 10/04/19 08:58 1 TAB Pantoprazole Sodium (Protonix) 40 mg DAILYAC 09/29/19 09:00 10/04/19 06:48 40 MG Potassium Chloride (Klor-Con) 40 meq 1X ONCE 10/01/19 12:15 10/01/19 12:16 DC 10/01/19 12:09 40 MEQ Sodium Bicarbonate 50 meq/Sodium Chloride 1,050 ml @ 50 mls/hr Q21H 09/29/19 09:00 10/01/19 13:02 DC 10/01/19 08:21 100 MLS/HR Sodium Chloride 1,000 ml @ 100 mls/hr Q10H 10/02/19 10:00 10/04/19 02:30 100 MLS/HR Lab Laboratory Tests Test 10/03/19 11:32 10/03/19 16:40 10/03/19 20:22 10/04/19 07:15 Glucose (Fingerstick) 151 mg/dL (70-99) 181 mg/dL (70-99) 178 mg/dL (70-99) 127 mg/dL (70-99) Test 10/04/19 08:45 White Blood Count 9.5 x10^3/uL (4.0-11.0) Red Blood Count 4.26 x10^6/uL (3.50-5.40) Hemoglobin 10.9 g/dL (12.0-15.5) Hematocrit 34.0 % (36.0-47.0) Mean Corpuscular Volume 80 fL (79-100) Mean Corpuscular Hemoglobin 26 pg (25-35) Mean Corpuscular Hemoglobin Concent 32 g/dL (31-37) Red Cell Distribution Width 15.7 % (11.5-14.5) Platelet Count 218 x10^3/uL (140-400) Neutrophils (%) (Auto) 68 % (31-73) Lymphocytes (%) (Auto) 21 % (24-48) Monocytes (%) (Auto) 8 % (0-9) Eosinophils (%) (Auto) 3 % (0-3) Basophils (%) (Auto) 1 % (0-3) Neutrophils # (Auto) 6.5 x10^3/uL (1.8-7.7) Lymphocytes # (Auto) 2.0 x10^3/uL (1.0-4.8) Monocytes # (Auto) 0.7 x10^3/uL (0.0-1.1) Eosinophils # (Auto) 0.3 x10^3/uL (0.0-0.7) Basophils # (Auto) 0.0 x10^3/uL (0.0-0.2) Sodium Level 140 mmol/L (136-145) Potassium Level 3.6 mmol/L (3.5-5.1) Chloride Level 106 mmol/L (98-107) Carbon Dioxide Level 26 mmol/L (21-32) Anion Gap 8 (6-14) Blood Urea Nitrogen 38 mg/dL (7-20) Creatinine 4.3 mg/dL (0.6-1.0) Estimated GFR (Cockcroft-Gault) 12.6 BUN/Creatinine Ratio 9 (6-20) Glucose Level 193 mg/dL (70-99) Calcium Level 8.3 mg/dL (8.5-10.1) Total Bilirubin 0.2 mg/dL (0.2-1.0) Aspartate Amino Transf (AST/SGOT) 14 U/L (15-37) Alanine Aminotransferase (ALT/SGPT) 13 U/L (14-59) Alkaline Phosphatase 92 U/L (46-116) Total Protein 6.2 g/dL (6.4-8.2) Albumin 2.2 g/dL (3.4-5.0) Albumin/Globulin Ratio 0.6 (1.0-1.7) Results All relevant outside records, renal labs, imaging studies, telemetry/EKG's were reviewed. Justicifation of Admission Dx: Justifications for Admission: Justification of Admission Dx: Yes Acute Renal Failure: Serum Cr > 4mg/dL KAE VELASQUEZ MD Oct 04, 2019 09:38
[2019-10-04 10:59] VITALS: BP 164/92
--- NOTE | 2019-10-04 11:45 | PDOC ---
PULMONARY PROGRESS NOTES Subjective on RA, denies sob Vitals Vital Signs Date Time Temp Pulse Resp B/P (MAP) Pulse Ox O2 Delivery O2 Flow Rate FiO2 10/04/19 11:22 Room Air 10/04/19 10:59 97.4 64 18 164/92 (116) 92 97.4 ROS: No Nausea, No Chest Pain, No Abdominal Pain, No Increase Cough General: Alert, Oriented X4 Lungs: Clear Cardiovascular: S1, S2 Abdomen: Soft, Non-tender, Other (obese) Neuro Exam: Alert, Oriented Extremities: Other (trace BLE ) Skin: Warm, Dry Labs Laboratory Tests Test 10/02/19 11:49 10/02/19 16:15 10/02/19 20:24 10/03/19 06:00 Glucose (Fingerstick) 137 mg/dL (70-99) 119 mg/dL (70-99) 190 mg/dL (70-99) White Blood Count 10.4 x10^3/uL (4.0-11.0) Red Blood Count 4.36 x10^6/uL (3.50-5.40) Hemoglobin 10.9 g/dL (12.0-15.5) Hematocrit 34.4 % (36.0-47.0) Mean Corpuscular Volume 79 fL (79-100) Mean Corpuscular Hemoglobin 25 pg (25-35) Mean Corpuscular Hemoglobin Concent 32 g/dL (31-37) Red Cell Distribution Width 15.7 % (11.5-14.5) Platelet Count 220 x10^3/uL (140-400) Neutrophils (%) (Auto) 67 % (31-73) Lymphocytes (%) (Auto) 21 % (24-48) Monocytes (%) (Auto) 8 % (0-9) Eosinophils (%) (Auto) 3 % (0-3) Basophils (%) (Auto) 1 % (0-3) Neutrophils # (Auto) 7.0 x10^3/uL (1.8-7.7) Lymphocytes # (Auto) 2.2 x10^3/uL (1.0-4.8) Monocytes # (Auto) 0.8 x10^3/uL (0.0-1.1) Eosinophils # (Auto) 0.3 x10^3/uL (0.0-0.7) Basophils # (Auto) 0.1 x10^3/uL (0.0-0.2) Sodium Level 138 mmol/L (136-145) Potassium Level 3.4 mmol/L (3.5-5.1) Chloride Level 104 mmol/L (98-107) Carbon Dioxide Level 27 mmol/L (21-32) Anion Gap 7 (6-14) Blood Urea Nitrogen 38 mg/dL (7-20) Creatinine 4.5 mg/dL (0.6-1.0) Estimated GFR (Cockcroft-Gault) 11.9 BUN/Creatinine Ratio 8 (6-20) Glucose Level 168 mg/dL (70-99) Calcium Level 8.5 mg/dL (8.5-10.1) Phosphorus Level 3.7 mg/dL (2.6-4.7) Magnesium Level 1.3 mg/dL (1.8-2.4) Total Bilirubin 0.3 mg/dL (0.2-1.0) Aspartate Amino Transf (AST/SGOT) 14 U/L (15-37) Alanine Aminotransferase (ALT/SGPT) 16 U/L (14-59) Alkaline Phosphatase 91 U/L (46-116) Total Protein 6.5 g/dL (6.4-8.2) Albumin 2.3 g/dL (3.4-5.0) Albumin/Globulin Ratio 0.5 (1.0-1.7) Test 10/03/19 07:39 10/03/19 11:32 10/03/19 16:40 10/03/19 20:22 Glucose (Fingerstick) 135 mg/dL (70-99) 151 mg/dL (70-99) 181 mg/dL (70-99) 178 mg/dL (70-99) Test 10/04/19 07:15 10/04/19 08:45 10/04/19 11:18 Glucose (Fingerstick) 127 mg/dL (70-99) 117 mg/dL (70-99) White Blood Count 9.5 x10^3/uL (4.0-11.0) Red Blood Count 4.26 x10^6/uL (3.50-5.40) Hemoglobin 10.9 g/dL (12.0-15.5) Hematocrit 34.0 % (36.0-47.0) Mean Corpuscular Volume 80 fL (79-100) Mean Corpuscular Hemoglobin 26 pg (25-35) Mean Corpuscular Hemoglobin Concent 32 g/dL (31-37) Red Cell Distribution Width 15.7 % (11.5-14.5) Platelet Count 218 x10^3/uL (140-400) Neutrophils (%) (Auto) 68 % (31-73) Lymphocytes (%) (Auto) 21 % (24-48) Monocytes (%) (Auto) 8 % (0-9) Eosinophils (%) (Auto) 3 % (0-3) Basophils (%) (Auto) 1 % (0-3) Neutrophils # (Auto) 6.5 x10^3/uL (1.8-7.7) Lymphocytes # (Auto) 2.0 x10^3/uL (1.0-4.8) Monocytes # (Auto) 0.7 x10^3/uL (0.0-1.1) Eosinophils # (Auto) 0.3 x10^3/uL (0.0-0.7) Basophils # (Auto) 0.0 x10^3/uL (0.0-0.2) Sodium Level 140 mmol/L (136-145) Potassium Level 3.6 mmol/L (3.5-5.1) Chloride Level 106 mmol/L (98-107) Carbon Dioxide Level 26 mmol/L (21-32) Anion Gap 8 (6-14) Blood Urea Nitrogen 38 mg/dL (7-20) Creatinine 4.3 mg/dL (0.6-1.0) Estimated GFR (Cockcroft-Gault) 12.6 BUN/Creatinine Ratio 9 (6-20) Glucose Level 193 mg/dL (70-99) Calcium Level 8.3 mg/dL (8.5-10.1) Total Bilirubin 0.2 mg/dL (0.2-1.0) Aspartate Amino Transf (AST/SGOT) 14 U/L (15-37) Alanine Aminotransferase (ALT/SGPT) 13 U/L (14-59) Alkaline Phosphatase 92 U/L (46-116) Total Protein 6.2 g/dL (6.4-8.2) Albumin 2.2 g/dL (3.4-5.0) Albumin/Globulin Ratio 0.6 (1.0-1.7) Laboratory Tests Test 10/03/19 16:40 10/03/19 20:22 10/04/19 07:15 10/04/19 08:45 Glucose (Fingerstick) 181 mg/dL (70-99) 178 mg/dL (70-99) 127 mg/dL (70-99) White Blood Count 9.5 x10^3/uL (4.0-11.0) Red Blood Count 4.26 x10^6/uL (3.50-5.40) Hemoglobin 10.9 g/dL (12.0-15.5) Hematocrit 34.0 % (36.0-47.0) Mean Corpuscular Volume 80 fL (79-100) Mean Corpuscular Hemoglobin 26 pg (25-35) Mean Corpuscular Hemoglobin Concent 32 g/dL (31-37) Red Cell Distribution Width 15.7 % (11.5-14.5) Platelet Count 218 x10^3/uL (140-400) Neutrophils (%) (Auto) 68 % (31-73) Lymphocytes (%) (Auto) 21 % (24-48) Monocytes (%) (Auto) 8 % (0-9) Eosinophils (%) (Auto) 3 % (0-3) Basophils (%) (Auto) 1 % (0-3) Neutrophils # (Auto) 6.5 x10^3/uL (1.8-7.7) Lymphocytes # (Auto) 2.0 x10^3/uL (1.0-4.8) Monocytes # (Auto) 0.7 x10^3/uL (0.0-1.1) Eosinophils # (Auto) 0.3 x10^3/uL (0.0-0.7) Basophils # (Auto) 0.0 x10^3/uL (0.0-0.2) Sodium Level 140 mmol/L (136-145) Potassium Level 3.6 mmol/L (3.5-5.1) Chloride Level 106 mmol/L (98-107) Carbon Dioxide Level 26 mmol/L (21-32) Anion Gap 8 (6-14) Blood Urea Nitrogen 38 mg/dL (7-20) Creatinine 4.3 mg/dL (0.6-1.0) Estimated GFR (Cockcroft-Gault) 12.6 BUN/Creatinine Ratio 9 (6-20) Glucose Level 193 mg/dL (70-99) Calcium Level 8.3 mg/dL (8.5-10.1) Total Bilirubin 0.2 mg/dL (0.2-1.0) Aspartate Amino Transf (AST/SGOT) 14 U/L (15-37) Alanine Aminotransferase (ALT/SGPT) 13 U/L (14-59) Alkaline Phosphatase 92 U/L (46-116) Total Protein 6.2 g/dL (6.4-8.2) Albumin 2.2 g/dL (3.4-5.0) Albumin/Globulin Ratio 0.6 (1.0-1.7) Test 10/04/19 11:18 Glucose (Fingerstick) 117 mg/dL (70-99) Medications Active Scripts Medications Dose Route/Sig Max Daily Dose Days Date Category Protonix (Pantoprazole Sodium) 40 Mg Tablet. 40 Mg PO DAILYAC 09/29/19 Reported Catapres (Clonidine Hcl) 0.1 Mg Tablet 1 Tab PO BID 09/29/19 Reported Aspirin Ec (Aspirin) 81 Mg Tablet. 81 Mg PO DAILYWBKFT 30 07/28/18 Rx Trelegy Ellipta 100-62.5-25 (Fluticasone/Umeclidin/Vilanter) 1 Each Blst.w.dev 1 Each IH BID 07/27/18 Reported Losartan-Hctz 100-25 Mg Tab (Losartan/Hydrochlorothiazide) 1 Each Tablet 1 Each PO DAILY 07/27/18 Reported Albuterol Sulfate Hfa Inhaler (Albuterol Sulfate) 8.5 Gm Hfa.aer.ad 8.5 Gm IH 07/06/13 Reported Amlodipine Besylate 10 Mg Tablet 10 Mg PO DAILY 07/06/13 Reported Glimepiride 1 Mg Tablet 2 Mg PO BIDWMEALS 07/06/13 Reported Comments CXR 09/28/19 Impression: Enlargement of the cardiomediastinal silhouette with resultant obscuration of the left lower lung. No other noteworthy abnormality of the chest. Impression . IMPRESSION: 1. Acute hypoxic respiratory failure secondary to chronic obstructive pulmonary disease exacerbation- resolved 2. Morbid obesity also contributing to chronic hypoxia. 3. Suspected obstructive sleep apnea. 4. Acute kidney injury- Plan . RECOMMENDATIONS: 1. 02 titration, 6 min walk at dc, 2. Continue DuoNeb /Pulmicort. 3. Follow renal recommendations ,on IVF 5. PFTs as an outpatient and Consider sleep study as an outpatient. 6. HTN per PCP 7. advised to exercise and lose wt Discussed with RN, pt. ok with dc home pulmonary pardo ADRIAN CERNA MD Oct 04, 2019 11:45
--- NOTE | 2019-10-04 13:17 | PDOC3 ---
Discharge Summary Date of Admission: Sep 29, 2019 Date of Discharge: Oct 04, 2019 Follow-Up: 3-5 days Admitting Diagnosis comment: discharge dx ------ symptomatic hypoglycemia, metabolic encephalopathy, resolved DM2, oral agents only morbid obesity, BMI > 40 acute on chronic renal failure, has caused accumulation of DM2 med, and then the hypoglycemia CR 4.5 renal failure on CKD, cont current fluid, NEPHROLOGY FOLLOWING consult renal, cont IV fluid hypoxia, pulm following ok with D/C 10/03 Acute hypoxic respiratory failure secondary to chronic obstructive pulmonary disease exacerbation- resolved Morbid obesity also contributing to chronic hypoxia. Pericardial effusion is again seen. ON CT Monitor, supportive care, Avoid nephrotoxins, FU BMP with PCP IN 5-7 days , d/c 10/03 ok with renal 36 MIN PT EXAM, CHART REVIEW, d/c planning > 50% OF TIME SPENT WITH EXAM, CHART REVIEW, PT CARE COORDINATION History of Present Illness History of Present Illness PLAN SLOW IMPROVEMENT IN RENAL FUNCTION. CONT IVF AT REDUCED RATE making good urine, creat not better, this may be ESRD, may need dialysis, renal following PT and OT oOB to chair creatinine not better renal, dm2 diet, pain with ambulation, very weak, will need placement nutrition consult Vitals Vitals Vital Signs Date Time Temp Pulse Resp B/P (MAP) Pulse Ox O2 Delivery O2 Flow Rate FiO2 10/04/19 08:58 Room Air 10/04/19 08:58 79 189/106 10/04/19 07:32 96 10/04/19 07:15 98.7 20 98.7 Physical Exam General: Alert, Oriented X3, Cooperative, No acute distress Heart: Regular rate, Normal S1, Normal S2, No murmurs, Gallops Lungs: Clear Abdomen: Normal bowel sounds, Soft, No tenderness, No hepatosplenomegaly, No masses Extremities: No clubbing, No cyanosis, No edema, Normal pulses, No tenderness/swelling Skin: No breakdown, No significant lesion Labs LABS Laboratory Tests Test 10/03/19 11:32 10/03/19 16:40 10/03/19 20:22 10/04/19 07:15 Glucose (Fingerstick) 151 mg/dL (70-99) 181 mg/dL (70-99) 178 mg/dL (70-99) 127 mg/dL (70-99) Test 10/04/19 08:45 White Blood Count 9.5 x10^3/uL (4.0-11.0) Red Blood Count 4.26 x10^6/uL (3.50-5.40) Hemoglobin 10.9 g/dL (12.0-15.5) Hematocrit 34.0 % (36.0-47.0) Mean Corpuscular Volume 80 fL (79-100) Mean Corpuscular Hemoglobin 26 pg (25-35) Mean Corpuscular Hemoglobin Concent 32 g/dL (31-37) Red Cell Distribution Width 15.7 % (11.5-14.5) Platelet Count 218 x10^3/uL (140-400) Neutrophils (%) (Auto) 68 % (31-73) Lymphocytes (%) (Auto) 21 % (24-48) Monocytes (%) (Auto) 8 % (0-9) Eosinophils (%) (Auto) 3 % (0-3) Basophils (%) (Auto) 1 % (0-3) Neutrophils # (Auto) 6.5 x10^3/uL (1.8-7.7) Lymphocytes # (Auto) 2.0 x10^3/uL (1.0-4.8) Monocytes # (Auto) 0.7 x10^3/uL (0.0-1.1) Eosinophils # (Auto) 0.3 x10^3/uL (0.0-0.7) Basophils # (Auto) 0.0 x10^3/uL (0.0-0.2) Sodium Level 140 mmol/L (136-145) Potassium Level 3.6 mmol/L (3.5-5.1) Chloride Level 106 mmol/L (98-107) Carbon Dioxide Level 26 mmol/L (21-32) Anion Gap 8 (6-14) Blood Urea Nitrogen 38 mg/dL (7-20) Creatinine 4.3 mg/dL (0.6-1.0) Estimated GFR (Cockcroft-Gault) 12.6 BUN/Creatinine Ratio 9 (6-20) Glucose Level 193 mg/dL (70-99) Calcium Level 8.3 mg/dL (8.5-10.1) Total Bilirubin 0.2 mg/dL (0.2-1.0) Aspartate Amino Transf (AST/SGOT) 14 U/L (15-37) Alanine Aminotransferase (ALT/SGPT) 13 U/L (14-59) Alkaline Phosphatase 92 U/L (46-116) Total Protein 6.2 g/dL (6.4-8.2) Albumin 2.2 g/dL (3.4-5.0) Albumin/Globulin Ratio 0.6 (1.0-1.7) Assessment and Plan Assessmemt and Plan Problems Medical Problems: (1) [id number] kidney injury Status: Acute (2) Adverse effect of sulfonylurea Status: Acute FINAL DIAGNOSIS Problems Medical Problems: (1) [id number] kidney injury Status: Acute (2) Adverse effect of sulfonylurea Status: Acute (3) Hypoglycemia Status: Acute Brief Hospital Course Ms. Persaud is a 64 old [sex] who presented with [ ARF ] CONDITION AT DISCHARGE: Improved Discharge Medications Current Medications Glucose (Insta-Glucose) 15 gm STK-MED ONCE .ROUTE ; Start 09/28/19 at 22:52; Stop 09/28/19 at 22:52; Status DC Dextrose (Dextrose 50%-Water Syringe) 25 gm STK-MED ONCE IV ; Start 09/28/19 at 22:52; Stop 09/28/19 at 22:52; Status DC Dextrose (Dextrose 50%-Water Syringe) 25 gm 1X ONCE IV Last administered on 02/06at 23:10; Start 09/28/19 at 23:15; Stop 09/28/19 at 23:16; Status DC Sodium Chloride 1,000 ml @ 1,000 mls/hr 1X ONCE IV ; Start 09/29/19 at 00:00; Stop 09/29/19 at 01:10; Status DC Dextrose (Dextrose 50%-Water Syringe) 25 gm 1X ONCE IV Last administered on 09/29/19at 00:24; Start 09/29/19 at 00:30; Stop 09/29/19 at 00:31; Status DC Dextrose 1,000 ml @ 150 mls/hr 1X ONCE IV Last administered on 09/29/19at 00:30; Start 09/29/19 at 00:30; Stop 09/29/19 at 07:09; Status DC Glucose (Insta-Glucose) 15 gm 1X ONCE PO Last administered on 09/29/19 00:21; Start 09/29/19 at 00:30; Stop 09/29/19 at 00:31; Status DC Ondansetron HCl (Zofran) 4 mg PRN Q8HRS PRN IV NAUSEA/VOMITING; Start 09/29/19 at 04:45; Stop 09/30/19 at 04:44; Status DC Amlodipine Besylate (Norvasc) 10 mg DAILY PO Last administered on 10/04/19at 08:58; Start 09/29/19 at 09:00 Aspirin (Ecotrin) 81 mg DAILYWBKFT PO Last administered on 10/04/19 08:56; Start 09/29/19 at 09:00 Clonidine HCl (Catapres) 0.1 mg BID PO Last administered on 10/01/19at 08:19; Start 09/29/19 at 09:00; Stop 10/01/19 at 14:56; Status DC Pantoprazole Sodium (Protonix) 40 mg DAILYAC PO Last administered on 10/04/19at 06:48; Start 09/29/19 at 09:00 Non-Formulary Medication (Fluticasone/ Umeclidin/ Vilanter (Trelegy Ellipta 100-62.5-25)) 1 each BID IH ; Start 09/29/19 at 09:00; Status UNV Albuterol/ Ipratropium (Duoneb) 3 ml RTQID NEB Last administered on 10/04/19at 11:21; Start 09/29/19 at 09:00 Budesonide (Pulmicort) 0.5 mg RTBID NEB Last administered on 10/04/19at 07:28; Start 09/29/19 at 09:00 Sodium Bicarbonate 50 meq/Sodium Chloride 1,050 ml @ 50 mls/hr Q21H IV Last administered on 10/01/19 08:21; Start 09/29/19 at 09:00; Stop 10/01/19 at 13:02; Status DC Heparin Sodium (Porcine) (Heparin Sodium) 5,000 unit BID SQ Last administered on 10/04/19at 09:08; Start 09/29/19 at 14:00 Magnesium Sulfate/ Dextrose 100 ml @ 100 mls/hr 1X ONCE IV Last administered on 09/30/19at 11:11; Start 09/30/19 at 10:15; Stop 09/30/19 at 11:14; Status DC Potassium Chloride (Klor-Con) 40 meq 1X ONCE PO Last administered on 09/30/19at 11:12; Start 09/30/19 at 10:15; Stop 09/30/19 at 10:16; Status DC Insulin Human Lispro (HumaLOG) 0-7 UNITS TIDWMEALS SQ Last administered on 10/03/19at 17:02; Start 09/30/19 at 17:00 Dextrose (Dextrose 50%-Water Syringe) 12.5 gm PRN Q15MIN PRN IV SEE COMMENTS; Start 09/30/19 at 16:45 Oxycodone/ Acetaminophen (Percocet 5/325) 1 tab PRN Q4HRS PRN PO PAIN Last administered on 10/04/19at 08:58; Start 09/30/19 at 16:45 Metoprolol Tartrate (Lopressor) 50 mg BID PO Last administered on 10/04/19at 08:57; Start 10/01/19 at 21:00 Metoprolol Tartrate (Lopressor) 50 mg 1X ONCE PO Last administered on 10/01/19at 12:09; Start 10/01/19 at 12:15; Stop 10/01/19 at 12:16; Status DC Potassium Chloride (Klor-Con) 40 meq 1X ONCE PO Last administered on 10/01/19at 12:09; Start 10/01/19 at 12:15; Stop 10/01/19 at 12:16; Status DC Clonidine HCl (Catapres) 0.1 mg TID PO Last administered on 10/04/19at 08:57; Start 10/01/19 at 15:00 Nicotine (Nicoderm Cq 21mg) 1 patch DAILY TD ; Start 10/02/19 at 09:00; Stop 10/01/19 at 15:06; Status DC Nicotine (Nicoderm Cq 21mg) 1 patch DAILY TD Last administered on 10/02/19at 07:43; Start 10/01/19 at 15:15 Sodium Chloride 1,000 ml @ 100 mls/hr Q10H IV Last administered on 10/04/19at 11:39; Start 10/02/19 at 10:00 Fluticasone Propionate (Flonase) 2 spray DAILY NS Last administered on 10/03/19at 08:25; Start 10/03/19 at 09:00 Active Scripts Active Aspirin Ec (Aspirin) 81 Mg Tablet. 81 Mg PO DAILYWBKFT 30 Days Reported Protonix (Pantoprazole Sodium) 40 Mg Tablet. 40 Mg PO DAILYAC Catapres (Clonidine Hcl) 0.1 Mg Tablet 1 Tab PO TID Trelegy Ellipta 100-62.5-25 (Fluticasone/Umeclidin/Vilanter) 1 Each Blst.w.dev 1 Each IH BID Losartan-Hctz 100-25 Mg Tab (Losartan/Hydrochlorothiazide) 1 Each Tablet 1 Each PO DAILY Albuterol Sulfate Hfa Inhaler (Albuterol Sulfate) 8.5 Gm Hfa.aer.ad 8.5 Gm IH Amlodipine Besylate 10 Mg Tablet 10 Mg PO DAILY Glimepiride 1 Mg Tablet 2 Mg PO BIDWMEALS Vital Signs Vital Signs Date Time Temp Pulse Resp B/P (MAP) Pulse Ox O2 Delivery O2 Flow Rate FiO2 10/04/19 11:22 Room Air 10/04/19 10:59 97.4 64 18 164/92 (116) 92 97.4 Labs Laboratory Tests Test 10/02/19 16:15 10/02/19 20:24 10/03/19 06:00 10/03/19 07:39 Glucose (Fingerstick) 119 mg/dL (70-99) 190 mg/dL (70-99) 135 mg/dL (70-99) White Blood Count 10.4 x10^3/uL (4.0-11.0) Red Blood Count 4.36 x10^6/uL (3.50-5.40) Hemoglobin 10.9 g/dL (12.0-15.5) Hematocrit 34.4 % (36.0-47.0) Mean Corpuscular Volume 79 fL (79-100) Mean Corpuscular Hemoglobin 25 pg (25-35) Mean Corpuscular Hemoglobin Concent 32 g/dL (31-37) Red Cell Distribution Width 15.7 % (11.5-14.5) Platelet Count 220 x10^3/uL (140-400) Neutrophils (%) (Auto) 67 % (31-73) Lymphocytes (%) (Auto) 21 % (24-48) Monocytes (%) (Auto) 8 % (0-9) Eosinophils (%) (Auto) 3 % (0-3) Basophils (%) (Auto) 1 % (0-3) Neutrophils # (Auto) 7.0 x10^3/uL (1.8-7.7) Lymphocytes # (Auto) 2.2 x10^3/uL (1.0-4.8) Monocytes # (Auto) 0.8 x10^3/uL (0.0-1.1) Eosinophils # (Auto) 0.3 x10^3/uL (0.0-0.7) Basophils # (Auto) 0.1 x10^3/uL (0.0-0.2) Sodium Level 138 mmol/L (136-145) Potassium Level 3.4 mmol/L (3.5-5.1) Chloride Level 104 mmol/L (98-107) Carbon Dioxide Level 27 mmol/L (21-32) Anion Gap 7 (6-14) Blood Urea Nitrogen 38 mg/dL (7-20) Creatinine 4.5 mg/dL (0.6-1.0) Estimated GFR (Cockcroft-Gault) 11.9 BUN/Creatinine Ratio 8 (6-20) Glucose Level 168 mg/dL (70-99) Calcium Level 8.5 mg/dL (8.5-10.1) Phosphorus Level 3.7 mg/dL (2.6-4.7) Magnesium Level 1.3 mg/dL (1.8-2.4) Total Bilirubin 0.3 mg/dL (0.2-1.0) Aspartate Amino Transf (AST/SGOT) 14 U/L (15-37) Alanine Aminotransferase (ALT/SGPT) 16 U/L (14-59) Alkaline Phosphatase 91 U/L (46-116) Total Protein 6.5 g/dL (6.4-8.2) Albumin 2.3 g/dL (3.4-5.0) Albumin/Globulin Ratio 0.5 (1.0-1.7) Test 10/03/19 11:32 10/03/19 16:40 10/03/19 20:22 10/04/19 07:15 Glucose (Fingerstick) 151 mg/dL (70-99) 181 mg/dL (70-99) 178 mg/dL (70-99) 127 mg/dL (70-99) Test 10/04/19 08:45 10/04/19 11:18 White Blood Count 9.5 x10^3/uL (4.0-11.0) Red Blood Count 4.26 x10^6/uL (3.50-5.40) Hemoglobin 10.9 g/dL (12.0-15.5) Hematocrit 34.0 % (36.0-47.0) Mean Corpuscular Volume 80 fL (79-100) Mean Corpuscular Hemoglobin 26 pg (25-35) Mean Corpuscular Hemoglobin Concent 32 g/dL (31-37) Red Cell Distribution Width 15.7 % (11.5-14.5) Platelet Count 218 x10^3/uL (140-400) Neutrophils (%) (Auto) 68 % (31-73) Lymphocytes (%) (Auto) 21 % (24-48) Monocytes (%) (Auto) 8 % (0-9) Eosinophils (%) (Auto) 3 % (0-3) Basophils (%) (Auto) 1 % (0-3) Neutrophils # (Auto) 6.5 x10^3/uL (1.8-7.7) Lymphocytes # (Auto) 2.0 x10^3/uL (1.0-4.8) Monocytes # (Auto) 0.7 x10^3/uL (0.0-1.1) Eosinophils # (Auto) 0.3 x10^3/uL (0.0-0.7) Basophils # (Auto) 0.0 x10^3/uL (0.0-0.2) Sodium Level 140 mmol/L (136-145) Potassium Level 3.6 mmol/L (3.5-5.1) Chloride Level 106 mmol/L (98-107) Carbon Dioxide Level 26 mmol/L (21-32) Anion Gap 8 (6-14) Blood Urea Nitrogen 38 mg/dL (7-20) Creatinine 4.3 mg/dL (0.6-1.0) Estimated GFR (Cockcroft-Gault) 12.6 BUN/Creatinine Ratio 9 (6-20) Glucose Level 193 mg/dL (70-99) Calcium Level 8.3 mg/dL (8.5-10.1) Total Bilirubin 0.2 mg/dL (0.2-1.0) Aspartate Amino Transf (AST/SGOT) 14 U/L (15-37) Alanine Aminotransferase (ALT/SGPT) 13 U/L (14-59) Alkaline Phosphatase 92 U/L (46-116) Total Protein 6.2 g/dL (6.4-8.2) Albumin 2.2 g/dL (3.4-5.0) Albumin/Globulin Ratio 0.6 (1.0-1.7) Glucose (Fingerstick) 117 mg/dL (70-99) Laboratory Tests Test 10/03/19 16:40 10/03/19 20:22 10/04/19 07:15 10/04/19 08:45 Glucose (Fingerstick) 181 mg/dL (70-99) 178 mg/dL (70-99) 127 mg/dL (70-99) White Blood Count 9.5 x10^3/uL (4.0-11.0) Red Blood Count 4.26 x10^6/uL (3.50-5.40) Hemoglobin 10.9 g/dL (12.0-15.5) Hematocrit 34.0 % (36.0-47.0) Mean Corpuscular Volume 80 fL (79-100) Mean Corpuscular Hemoglobin 26 pg (25-35) Mean Corpuscular Hemoglobin Concent 32 g/dL (31-37) Red Cell Distribution Width 15.7 % (11.5-14.5) Platelet Count 218 x10^3/uL (140-400) Neutrophils (%) (Auto) 68 % (31-73) Lymphocytes (%) (Auto) 21 % (24-48) Monocytes (%) (Auto) 8 % (0-9) Eosinophils (%) (Auto) 3 % (0-3) Basophils (%) (Auto) 1 % (0-3) Neutrophils # (Auto) 6.5 x10^3/uL (1.8-7.7) Lymphocytes # (Auto) 2.0 x10^3/uL (1.0-4.8) Monocytes # (Auto) 0.7 x10^3/uL (0.0-1.1) Eosinophils # (Auto) 0.3 x10^3/uL (0.0-0.7) Basophils # (Auto) 0.0 x10^3/uL (0.0-0.2) Sodium Level 140 mmol/L (136-145) Potassium Level 3.6 mmol/L (3.5-5.1) Chloride Level 106 mmol/L (98-107) Carbon Dioxide Level 26 mmol/L (21-32) Anion Gap 8 (6-14) Blood Urea Nitrogen 38 mg/dL (7-20) Creatinine 4.3 mg/dL (0.6-1.0) Estimated GFR (Cockcroft-Gault) 12.6 BUN/Creatinine Ratio 9 (6-20) Glucose Level 193 mg/dL (70-99) Calcium Level 8.3 mg/dL (8.5-10.1) Total Bilirubin 0.2 mg/dL (0.2-1.0) Aspartate Amino Transf (AST/SGOT) 14 U/L (15-37) Alanine Aminotransferase (ALT/SGPT) 13 U/L (14-59) Alkaline Phosphatase 92 U/L (46-116) Total Protein 6.2 g/dL (6.4-8.2) Albumin 2.2 g/dL (3.4-5.0) Albumin/Globulin Ratio 0.6 (1.0-1.7) Test 10/04/19 11:18 Glucose (Fingerstick) 117 mg/dL (70-99) Allergies Allergies Coded Allergies Type Severity Reaction Last Updated Verified No Known Drug Allergies 07/27/18 No Disposition/Orders: D/C to Home Justicifation of Admission Dx: Justifications for Admission: Justification of Admission Dx: Yes Acute Renal Failure: Serum Cr > 4mg/dL KAROLINE BUSTOS MD Oct 04, 2019 13:17
[2019-10-04] MEDS ORDERED: INSU100I11 SQ (13:21)
[2019-10-04] MEDS ORDERED: METO50TA6 PO (13:21)
[2019-10-04] MEDS ORDERED: FLUT16SP NS (13:21)
[2019-10-04] MEDS ORDERED: Nicotine 21MG TD (13:21)
--- NOTE | 2019-10-04 13:22 | DISCH ---
DISCHARGE INSTRUCTIONS Condition on Discharge Condition on Discharge: Guarded Activity After Discharge Activity Instructions for Disc: No restrictions, Activity as tolerated Lifting Instructions after Dis: No heavy lifting Exercise Instruction after Dis: Exercise per therapy Driving Instructions after Dis: Do not drive today Weight Bearing Status after Di: No restrictions Diet after Discharge Diet after Discharge: Renal Non-Dialysis, Diabetic No Calorie Level Diet Texture: Regular Liquid Texture: Thin Liquid Swallowing Supervision: None needed Wound Incision Care Wound/Incision Care: No wound care needed Checks after Discharge Checks after discharge: Check blood press - daily, Check blood sugar, ac/hs Contacting the DR. after DC Call your doctor for: If your condition worsens Treatment/Equipment after DC Adaptive Equipment Issued: None Warfarin Follow-Up Warfarin Follow UP: SEE PCP THIS THURSDAY FOR BLOOD WORK KAROLINE BUSTOS MD Oct 04, 2019 13:22
[2019-10-04] MEDS ORDERED: MAGNESIUM SULFATE 2GM 50 ML IV ONE (13:45)
[2019-10-04 14:40] VITALS: BP 149/69
--- NOTE | 2019-10-04 19:08 | NUR ---
Discharge Note: Patient was discharged home with self care. Patient declined home services. Patients IV was discontinued without any complications per SUPERVISOR KENNEL. Patient was given discharge summary/instructions, follow-ups, and educational material. Patients prescriptions were sent to patients preferred pharmacy. Patient did not have any further questions or concerns. Patient was taken down to the main entrance with all personal belongings via wheelchair, accompanied this RN, where patients daughter was waiting for her to take her home.
== END 2019-10-04 19:11 | disposition home or self-care (01) | DRG 682 ==
LOC: ER 22:26 → 2 SOUTH 09-29 04:10 → 4 NORTH 10-01 18:11
PROVIDERS: ADMIT Internal Medicine; ATTEND Internal Medicine
DX: N17.9 Acute kidney failure, unspecified (principal); J96.01 Acute respiratory failure with hypoxia; G93.41 Metabolic encephalopathy; I31.3 Pericardial effusion (noninflammatory); J44.1 Chronic obstructive pulmonary disease with (acute) exacerbation; J98.11 Atelectasis; Z68.41 Body mass index [BMI] 40.0-44.9, adult; N18.4 Chronic kidney disease, stage 4 (severe); E11.649 Type 2 diabetes mellitus with hypoglycemia without coma; E11.22 Type 2 diabetes mellitus with diabetic chronic kidney disease; E11.65 Type 2 diabetes mellitus with hyperglycemia; T38.3X5A Adverse effect of insulin and oral hypoglycemic [antidiabetic] drugs, initial encounter; E66.01 Morbid (severe) obesity due to excess calories; E78.5 Hyperlipidemia, unspecified; I12.9 Hypertensive chronic kidney disease with stage 1 through stage 4 chronic kidney disease, or unspecified chronic kidney disease; N28.1 Cyst of kidney, acquired; N39.3 Stress incontinence (female) (male); Z79.84 Long term (current) use of oral hypoglycemic drugs; Z87.11 Personal history of peptic ulcer disease; Z87.891 Personal history of nicotine dependence; F32.9 Major depressive disorder, single episode, unspecified; F41.9 Anxiety disorder, unspecified; G43.909 Migraine, unspecified, not intractable, without status migrainosus; G89.29 Other chronic pain; K21.9 Gastro-esophageal reflux disease without esophagitis; K57.90 Diverticulosis of intestine, part unspecified, without perforation or abscess without bleeding; M19.90 Unspecified osteoarthritis, unspecified site; Y92.89 Other specified places as the place of occurrence of the external cause
CPT/HCPCS: 36415; 71045; 74176; 76770; 80048; 80053; 81001; 82962; 83036; 83735; 84100; 84484; 85025; 94640; 94760; 96361; 96374; 96375; G0480; J1644; J1815; J3475; J3490; J7030; J7042; 97116-GP; 97530-GP; 97535-GO; 99285-25; G0378; J7626

== ENCOUNTER 2019-10-16 07:12 | Emergency (ER) | payer MEDICAID ==
[~2019-10-16] VITALS: Ht 152.4 cm; Wt 93.2 kg
[~2019-10-16 07:12] MED LIST changes: +CLON0.1T12 PO; +FLUT16SP NS; +INSU100I11 SQ; +Nicotine 21MG TD
[2019-10-16] MEDS ORDERED: hydrALAZINE 20 MG/ML VIAL. IVP ONE ×2 (07:45→08:45)
[2019-10-16 08:14] LABS: CALCIUM 7.6 mg/dL (8.5-10.1); CREATININE 5.2 mg/dL (0.6-1.0); GFR 10.1; POTASSIUM 3.2 mmol/L (3.5-5.1)
[2019-10-16 08:18] LABS: BASO # 0.1 x10^3/uL (0.0-0.2); BASO % 1 % (0-3); EOS # 0.3 x10^3/uL (0.0-0.7); EOS % 3 % (0-3); HEMATOCRIT 37.2 % (36.0-47.0); HEMOGLOBIN 11.9 g/dL (12.0-15.5); LYMPH # 1.6 x10^3/uL (1.0-4.8); LYMPH % 18 % (24-48); MEAN CORPUSCULAR HEMOGLOBIN 25 pg (25-35); MEAN CORPUSCULAR HGB CONC 32 g/dL (31-37); MEAN CORPUSCULAR VOLUME 78 fL (79-100); MONO # 0.5 x10^3/uL (0.0-1.1); MONO % 6 % (0-9); NEUT # 6.7 x10^3/uL (1.8-7.7); NEUT % 73 % (31-73); PLATELET COUNT 223 x10^3/uL (140-400); RED BLOOD COUNT 4.75 x10^6/uL (3.50-5.40); RED CELL DISTRIBUTION WIDTH 16.2 % (11.5-14.5); WHITE BLOOD COUNT 9.2 x10^3/uL (4.0-11.0)
[2019-10-16 08:22] LABS: ALBUMIN 2.4 g/dL (3.4-5.0); ALBUMIN/GLOBULIN RATIO 0.6 (1.0-1.7); TOTAL BILIRUBIN 0.1 mg/dL (0.2-1.0); TOTAL PROTEIN 6.5 g/dL (6.4-8.2)
[2019-10-16] MEDS ORDERED: MORPHINE SULFATE 4 MG/ML VIAL. IV ONE (09:00)
[2019-10-16] MEDS ORDERED: ONDANSETRON PF 4 MG/2 ML VIAL. IVP ONE (09:00)
--- NOTE | 2019-10-16 11:06 | PHYS DOC ---
Past Medical History Past Medical History: Asthma, Diabetes-Type II, GERD, GI Bleed, Hypertension, Hepatitis, Renal Disease Additional Past Medical Histor: sleep apnea; ulcers; GI bleed, Stage 5 CKD Past Surgical History: Other Additional Past Surgical Histo: Umbilical hernia repair; colon resection Smoking Status: Current Every Day Smoker Alcohol Use: None Drug Use: None General Adult EDM: Chief Complaint: HYPERTENSION HPI: HPI: Patient is a 64 year old female presents to the ED with a chief complaint of high glucose and high blood pressure. Patient states that her blood pressure medications were recently changed 1 week ago. Patient also was in the hospital was concerned about her blood glucose. Patient complains of mild headache. No other neurologic complaints by patient. Daughter accompanies patient to the ER. Review of Systems: Review of Systems: Constitutional: Denies fever or chills. [] Eyes: Denies change in visual acuity. [] HENT: Denies nasal congestion or sore throat. [] Respiratory: Denies cough or shortness of breath. [] Cardiovascular: Denies chest pain or edema. [] GI: Denies abdominal pain, nausea, vomiting, bloody stools or diarrhea. [] : Denies dysuria. [] Neurologic: Complains of headache Heart Score: Risk Factors: Risk Factors: DM, Current or recent (<one month) smoker, HTN, HLP, family history of CAD, obesity. Risk Scores: Score 0 - 3: 2.5% MACE over next 6 weeks - Discharge Home Score 4 - 6: 20.3% MACE over next 6 weeks - Admit for Clinical Observation Score 7 - 10: 72.7% MACE over next 6 weeks - Early Invasive Strategies Current Medications: Current Medications Medications (Trade) Dose Ordered Sig/[facility] Start Time Stop Time Status Last Admin Dose Admin Hydralazine HCl (Apresoline Inj) 10 mg 1X ONCE 10/16/19 08:45 10/16/19 08:46 DC 10/16/19 08:54 10 MG Morphine Sulfate (Morphine Sulfate) 4 mg 1X ONCE 10/16/19 09:00 10/16/19 09:01 DC 10/16/19 09:06 4 MG Ondansetron HCl (Zofran) 4 mg 1X ONCE 10/16/19 09:00 10/16/19 09:01 DC 10/16/19 09:06 4 MG Allergies: Allergies: Allergies Coded Allergies Type Severity Reaction Last Updated Verified No Known Drug Allergies 07/27/18 No Physical Exam: PE: Constitutional: Well developed, well nourished, no acute distress, non-toxic appearance. [] HENT: Normocephalic, atraumatic Eyes: EOMI Neck: Normal range of motion, Supple Cardiovascular:Heart rate regular rhythm Lungs & Thorax: Bilateral breath sounds clear to auscultation [] Abdomen: Bowel sounds normal, soft, no tenderness Extremities: No tenderness, ROM intact Neurologic: Alert and oriented X 3, no focal neuro deficits on exam Current Patient Data: Labs: Laboratory Tests Test 10/16/19 07:55 White Blood Count 9.2 x10^3/uL (4.0-11.0) Red Blood Count 4.75 x10^6/uL (3.50-5.40) Hemoglobin 11.9 g/dL (12.0-15.5) L Hematocrit 37.2 % (36.0-47.0) Mean Corpuscular Volume 78 fL (79-100) L Mean Corpuscular Hemoglobin 25 pg (25-35) Mean Corpuscular Hemoglobin Concent 32 g/dL (31-37) Red Cell Distribution Width 16.2 % (11.5-14.5) H Platelet Count 223 x10^3/uL (140-400) Neutrophils (%) (Auto) 73 % (31-73) Lymphocytes (%) (Auto) 18 % (24-48) L Monocytes (%) (Auto) 6 % (0-9) Eosinophils (%) (Auto) 3 % (0-3) Basophils (%) (Auto) 1 % (0-3) Neutrophils # (Auto) 6.7 x10^3/uL (1.8-7.7) Lymphocytes # (Auto) 1.6 x10^3/uL (1.0-4.8) Monocytes # (Auto) 0.5 x10^3/uL (0.0-1.1) Eosinophils # (Auto) 0.3 x10^3/uL (0.0-0.7) Basophils # (Auto) 0.1 x10^3/uL (0.0-0.2) Sodium Level 139 mmol/L (136-145) Potassium Level 3.2 mmol/L (3.5-5.1) L Chloride Level 103 mmol/L (98-107) Carbon Dioxide Level 26 mmol/L (21-32) Anion Gap 10 (6-14) Blood Urea Nitrogen 44 mg/dL (7-20) H Creatinine 5.2 mg/dL (0.6-1.0) H Estimated GFR (Cockcroft-Gault) 10.1 BUN/Creatinine Ratio 8 (6-20) Glucose Level 166 mg/dL (70-99) H Calcium Level 7.6 mg/dL (8.5-10.1) L Total Bilirubin 0.1 mg/dL (0.2-1.0) L Aspartate Amino Transferase (AST) 13 U/L (15-37) L Alanine Aminotransferase (ALT) 14 U/L (14-59) Alkaline Phosphatase 131 U/L (46-116) H Total Protein 6.5 g/dL (6.4-8.2) Albumin 2.4 g/dL (3.4-5.0) L Albumin/Globulin Ratio 0.6 (1.0-1.7) L Laboratory Tests 10/16/19 07:55 Laboratory Tests 10/16/19 07:55 Vital Signs: Vital Signs Date Time Temp Pulse Resp B/P (MAP) Pulse Ox O2 Delivery O2 Flow Rate FiO2 10/16/19 09:06 19 100 Room Air 10/16/19 08:54 60 250/128 10/16/19 07:20 98.2 98.2 EKG: EKG: [] Radiology/Procedures: Radiology/Procedures: [] Course & Med Decision Making: Course & Med Decision Making Pertinent Labs reviewed. (See chart for details) Ordered labs, hydralazine 20 mg IV Labs are within normal limits except chronic kidney failure Patient is also given morphine 4 mg IV and Zofran 4 mg IV for headache. On recheck patient's blood pressure is now 182/86. Family state that they will take patient home to give her home medications this morning. They do not want me to treat her blood pressure any further. Blood glucose is stable at 183. Discussed results and plan of care with patient. Patient is instructed to follow up with PCP in one to 2 days. Appropriate discharge instructions given to patient to return to the ED or to seek immediate medical evaluation. Patient is instructed to return to the ED if symptoms worsen or if any concerns. Dragon Disclaimer: Dragon Disclaimer: This electronic medical record was generated, in whole or in part, using a voice recognition dictation system. Departure Departure Impression: Primary Impression: HTN (hypertension) Additional Impression: Hyperglycemia Disposition: 01 HOME, SELF-CARE Condition: IMPROVED Referrals: RICKY PORTILLO MD (PCP) Patient Instructions: Hyperglycemia, Hypertension Additional Instructions: Discussed results and plan of care with patient. Patient is instructed to follow up with PCP in one to 2 days. Appropriate discharge instructions given to patient to return to the ED or to seek immediate medical evaluation. Patient is instructed to return to the ED if symptoms worsen or if any concerns. Justicifation of Admission Dx: Justifications for Admission: Justification of Admission Dx: No Acute Renal Failure: Serum Cr > 4mg/dL CHITRA MCFARLAND DO Oct 16, 2019 11:06
[2019-10-16 11:15] VITALS: BP 177/92
== END 2019-10-16 11:32 | disposition home or self-care (01) ==
LOC: ER 07:12
DX: E11.65 Type 2 diabetes mellitus with hyperglycemia (principal); E11.22 Type 2 diabetes mellitus with diabetic chronic kidney disease; I12.0 Hypertensive chronic kidney disease with stage 5 chronic kidney disease or end stage renal disease; N18.5 Chronic kidney disease, stage 5; K21.9 Gastro-esophageal reflux disease without esophagitis; J45.909 Unspecified asthma, uncomplicated; F17.200 Nicotine dependence, unspecified, uncomplicated
CPT/HCPCS: 36415; 80053; 85025; 96374; 96375; 99285; J0360; J2270; J2405

== ENCOUNTER 2019-10-28 20:55 | Inpatient (IN) | payer MEDICAID ==
[~2019-10-28] VITALS: Ht 152.4 cm; Wt 90.1 kg
[~2019-10-28 20:55] MED LIST changes: -ASPI-612 PO; +ASPI-886 PO
[2019-10-28 22:15] LABS: BASO # 0.1 x10^3/uL (0.0-0.2); BASO % 1 % (0-3); EOS # 0.2 x10^3/uL (0.0-0.7); EOS % 2 % (0-3); HEMATOCRIT 39.8 % (36.0-47.0); HEMOGLOBIN 12.9 g/dL (12.0-15.5); LYMPH # 1.9 x10^3/uL (1.0-4.8); LYMPH % 21 % (24-48); MEAN CORPUSCULAR HEMOGLOBIN 25 pg (25-35); MEAN CORPUSCULAR HGB CONC 33 g/dL (31-37); MEAN CORPUSCULAR VOLUME 78 fL (79-100); MONO # 0.7 x10^3/uL (0.0-1.1); MONO % 7 % (0-9); NEUT # 6.5 x10^3/uL (1.8-7.7); NEUT % 69 % (31-73); PLATELET COUNT 258 x10^3/uL (140-400); RED BLOOD COUNT 5.12 x10^6/uL (3.50-5.40); RED CELL DISTRIBUTION WIDTH 16.1 % (11.5-14.5); WHITE BLOOD COUNT 9.3 x10^3/uL (4.0-11.0)
[2019-10-28 22:24] LABS: CALCIUM 8.6 mg/dL (8.5-10.1); CREATININE 5.2 mg/dL (0.6-1.0); GFR 10.1; POTASSIUM 3.1 mmol/L (3.5-5.1)
[2019-10-28 22:27] LABS: ALBUMIN 2.5 g/dL (3.4-5.0); ALBUMIN/GLOBULIN RATIO 0.6 (1.0-1.7); TOTAL BILIRUBIN 0.1 mg/dL (0.2-1.0); TOTAL PROTEIN 6.9 g/dL (6.4-8.2)
[2019-10-28] MEDS ORDERED: LABETALOL 20 MG/4 ML DISP.SYRIN. IVP ONE (22:30)
--- NOTE | 2019-10-28 22:33 | PHYS DOC ---
Past Medical History Past Medical History: Asthma, Diabetes-Type II, High Cholesterol, Hypertension Additional Past Medical Histor: sleep apnea; ulcers; GI bleed, Stage 5 CKD Past Surgical History: Additional Past Surgical Histo: hernia Smoking Status: Current Every Day Smoker Alcohol Use: None Drug Use: None General Adult EDM: Chief Complaint: DIZZY/LIGHT HEADED HPI: HPI: 64-year-old female past medical history hypertension presents with a chief complaint of headache dizziness and elevated blood pressure. 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 Patient states she was started on new blood pressure medications. She admits to taking all her medications but this evening symptoms of headache dizziness continued patient did not feel any better. Patient presents for further eval uation. On arrival patient's blood pressure was greater than 200/100 systolic. Denies any associated chest pain. Review of Systems: Review of Systems: Constitutional: Denies fever or chills. [] Eyes: Denies change in visual acuity. [] HENT: Denies nasal congestion or sore throat. [] Respiratory: Positive shortness of breath Cardiovascular: Denies chest pain or edema. [] GI: Denies abdominal pain, nausea, vomiting, bloody stools or diarrhea. [] : Denies dysuria. [] Musculoskeletal: Denies back pain or joint pain. [] Integument: Denies rash. [] Neurologic: Positive headache positive dizziness Endocrine: Denies polyuria or polydipsia. [] Lymphatic: Denies swollen glands. [] Psychiatric: Denies depression or anxiety. [] Heart Score: Risk Factors: Risk Factors: DM, Current or recent (<one month) smoker, HTN, HLP, family history of CAD, obesity. Risk Scores: Score 0 - 3: 2.5% MACE over next 6 weeks - Discharge Home Score 4 - 6: 20.3% MACE over next 6 weeks - Admit for Clinical Observation Score 7 - 10: 72.7% MACE over next 6 weeks - Early Invasive Strategies Current Medications: Current Medications Medications (Trade) Dose Ordered Sig/[facility] Start Time Stop Time Status Last Admin Dose Admin Labetalol HCl (Normodyne Iv Push) 20 mg 1X ONCE 10/28/19 22:30 10/28/19 22:31 DC Allergies: Allergies: Allergies Coded Allergies Type Severity Reaction Last Updated Verified No Known Drug Allergies 07/27/18 No Physical Exam: PE: Constitutional: Well developed, well nourished, no acute distress, non-toxic appearance. [] HENT: Normocephalic, atraumatic, bilateral external ears normal, oropharynx moist, no oral exudates, nose normal. [] Eyes: PERRLA, EOMI, conjunctiva normal, no discharge. [] Neck: Normal range of motion, no tenderness, supple, no stridor. [] Cardiovascular:Heart rate regular rhythm, no murmur [] Lungs & Thorax: Bilateral breath sounds clear to auscultation [] Abdomen: Bowel sounds normal, soft, no tenderness, no masses, no pulsatile masses. [] Skin: Warm, dry, no erythema, no rash. [] Back: No tenderness, no CVA tenderness. [] Extremities: No tenderness, no cyanosis, no clubbing, ROM intact, no edema. [] Neurologic: Alert and oriented X 3, normal motor function, normal sensory function, no focal deficits noted. [] Psychologic: Affect normal, judgement normal, mood normal. [] Current Patient Data: Labs: Laboratory Tests Test 10/28/19 21:40 White Blood Count 9.3 x10^3/uL (4.0-11.0) Red Blood Count 5.12 x10^6/uL (3.50-5.40) Hemoglobin 12.9 g/dL (12.0-15.5) Hematocrit 39.8 % (36.0-47.0) Mean Corpuscular Volume 78 fL (79-100) L Mean Corpuscular Hemoglobin 25 pg (25-35) Mean Corpuscular Hemoglobin Concent 33 g/dL (31-37) Red Cell Distribution Width 16.1 % (11.5-14.5) H Platelet Count 258 x10^3/uL (140-400) Neutrophils (%) (Auto) 69 % (31-73) Lymphocytes (%) (Auto) 21 % (24-48) L Monocytes (%) (Auto) 7 % (0-9) Eosinophils (%) (Auto) 2 % (0-3) Basophils (%) (Auto) 1 % (0-3) Neutrophils # (Auto) 6.5 x10^3/uL (1.8-7.7) Lymphocytes # (Auto) 1.9 x10^3/uL (1.0-4.8) Monocytes # (Auto) 0.7 x10^3/uL (0.0-1.1) Eosinophils # (Auto) 0.2 x10^3/uL (0.0-0.7) Basophils # (Auto) 0.1 x10^3/uL (0.0-0.2) Sodium Level 140 mmol/L (136-145) Potassium Level 3.1 mmol/L (3.5-5.1) L Chloride Level 102 mmol/L (98-107) Carbon Dioxide Level 25 mmol/L (21-32) Anion Gap 13 (6-14) Blood Urea Nitrogen 44 mg/dL (7-20) H Creatinine 5.2 mg/dL (0.6-1.0) H Estimated GFR (Cockcroft-Gault) 10.1 BUN/Creatinine Ratio 8 (6-20) Glucose Level 112 mg/dL (70-99) H Calcium Level 8.6 mg/dL (8.5-10.1) Total Bilirubin 0.1 mg/dL (0.2-1.0) L Aspartate Amino Transferase (AST) 15 U/L (15-37) Alanine Aminotransferase (ALT) 10 U/L (14-59) L Alkaline Phosphatase 142 U/L (46-116) H Troponin I Quantitative 0.023 ng/mL (0.000-0.055) Total Protein 6.9 g/dL (6.4-8.2) Albumin 2.5 g/dL (3.4-5.0) L Albumin/Globulin Ratio 0.6 (1.0-1.7) L Laboratory Tests 10/28/19 21:40 Laboratory Tests 10/28/19 21:40 Vital Signs: Vital Signs Date Time Temp Pulse Resp B/P (MAP) Pulse Ox O2 Delivery O2 Flow Rate FiO2 10/28/19 21:01 97.7 100 24 191/95 (127) 98 Room Air 97.7 EKG: EKG: EKG taken at 2223 heart rate [address] elevation no ST depression no acute TN [] Radiology/Procedures: Radiology/Procedures: [] Impression: FINDINGS: Lungs: Low lung volume. No pulmonary mass or consolidation. The tracheobronchial tree and hilar structures are normal. Pleura: No pleural effusion or pneumothorax. Heart and Mediastinum: Cardiomegaly. Tortuous atherosclerotic aorta. IMPRESSION: Lung volume. No consolidation. Electronically signed by: Vincent Torres MD (10/28/2019 11:18 PM) [facility] Course & Med Decision Making: Course & Med Decision Making Pertinent Labs and Imaging studies reviewed. (See chart for details) [] Patient was evaluated for chief complaint. Work-up consisted of laboratory analysis and radiologic imaging. Results reviewed and discussed with patient. At the time of my initial examination I informed the patient and her family that my intent to admit the patient to the hospital. Patient's blood pressure at the time was greater than 200/100 systolic. Patient was treated with labetalol 20 mg IV push. Patient's blood pressure improved to the 190s systolic. Dragon Disclaimer: Dragon Disclaimer: This electronic medical record was generated, in whole or in part, using a voice recognition dictation system. Departure Departure Impression: Primary Impression: Hypertensive emergency Disposition: ADMITTED INPATIENT Condition: STABLE Referrals: RICKY PORTILLO MD (PCP) Justicifation of Admission Dx: Justifications for Admission: Justification of Admission Dx: No Acute Renal Failure: Serum Cr > 4mg/dL BLAKE PENALOZA I DO Oct 28, 2019 22:33
--- NOTE | 2019-10-28 23:21 | RAD ---
CHEST AP ONLY INDICATION: Reason: hypertension headache / Spl. Instructions: / History: . COMPARISON STUDY: 09/28/2019. FINDINGS: Lungs: Low lung volume. No pulmonary mass or consolidation. The tracheobronchial tree and hilar structures are normal. Pleura: No pleural effusion or pneumothorax. Heart and Mediastinum: Cardiomegaly. Tortuous atherosclerotic aorta. IMPRESSION: Lung volume. No consolidation. Electronically signed by: Vincent Torres MD (10/28/2019 11:18 PM) [facility]
[2019-10-28 23:30] VITALS: BP 222/150
[2019-10-29] MEDS ORDERED: HYDR-2869 PO (01:15)
[2019-10-29] MEDS ORDERED: FURO40TA4 PO (01:15)
[2019-10-29] MEDS ORDERED: HYDR-2763 PO (01:15)
[2019-10-29] MEDS ORDERED: ISOS60TA2 PO (01:15)
[2019-10-29] MEDS ORDERED: hydrALAZINE 20 MG/ML VIAL. IVP ONE (03:00)
[2019-10-29] MEDS: HYDROcodone/APAP 7.5/325MG 1 TAB TABLET PO PRN ×2 (03:08→09:57)
[2019-10-29 04:33] VITALS: BP 199/119
[2019-10-29] MEDS: hydrALAZINE 20 MG/ML VIAL. IVP PRN ×2 (05:13→20:47)
[2019-10-29 07:00] VITALS: BP 195/95
[2019-10-29] MEDS ORDERED: DEXTROSE 50% 25 GM / 50ML DISP.SYRIN. IV PRN (07:30)
[2019-10-29] MEDS: INSULIN LISPRO 300 UNITS/3 ML VIAL. SQ SCH ×4 (07:30→21:00)
--- NOTE | 2019-10-29 08:01 | PDOC1 ---
History and Physical Date of Admission Date of Admission DATE: 10/29/19 TIME: 07:46 Identification/Chief Complaint Chief Complaint Headache Source Source: Patient History of Present Illness History of Present Illness Ms Persaud is a 64yo F w/ PMHx Asthma, Diabetes-Type II, High Cholesterol, Hypertension, sleep apnea, gastric ulcers, Stage 5 CKD, smoker who p/w headache dizziness and elevated blood pressure. 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 Patient states she was started on new blood pressure medications. She admits to taking all her medications but this evening symptoms of headache dizziness continued patient did not feel any better. Patient presents for further evaluation. On arrival patient's blood pressure was greater than 200/100 systolic. Patient was treated with labetalol 20 mg IV push. Patient's blood pressure improved to the 190s systolic, but diastolic remained 119mmHg. Denies any associated chest pain. On further review from previous hospital discharge she was told to restart losartan hydrochlorothiazide, then was instructed by cardiology to start on appropriate medications, Imdur and hydralazine. However she was instructed by someone at her PCP office to go ahead back on the losartan hydrochlorothiazide. Her primary complaint with me today is actually a headache and she is asking for hydrocodone for this. WBC 9.3, Hb 12.9, platelets 258, NA 140, K3.1, BUN 44, CR 5.2, glucose 112, troponin 0.023 EKG with HR [address] elevation no ST depression no acute GA CXR: No acute changes Admitted for further care Past Medical History Cardiovascular: HTN, Hyperlipidemia, Other Pulmonary: COPD, Other CENTRAL NERVOUS SYSTEM: Migraine GI: Constipation, Diverticulosis, GERD, GI bleed, Peptic Ulcer disease Heme/Onc: No pertinent hx Hepatobiliary: Hep A/B/C Psych: Anxiety, Depression Rheumatologic: No pertinent hx Infectious disease: No pertinent hx Renal/: Chronic renal insuff Endocrine: Diabetes Past Surgical History Past Surgical History: , Hernia Repair, Colon Resection, Other Family History Family History: No Significant Social History Smoke: 1 pack per day ALCOHOL: none Drugs: None Current Medications Current Medications Current Medications Labetalol HCl (Normodyne Iv Push) 20 mg 1X ONCE IVP Last administered on 10/28/19at 22:49; Start 10/28/19 at 22:30; Stop 10/28/19 at 22:31; Status DC Acetaminophen/ Hydrocodone Bitart (Lortab 7.5/325) 1 tab PRN Q4HRS PRN PO PAIN Last administered on 10/29/19at 03:08; Start 10/29/19 at 03:00 Hydralazine HCl (Apresoline Inj) 5 mg 1X ONCE IVP Last administered on 10/29/19at 03:09; Start 10/29/19 at 03:00; Stop 10/29/19 at 03:04; Status DC Hydralazine HCl (Apresoline Inj) 5 mg PRN Q6HRS PRN IVP ELEVATED BP, SEE COMMENTS Last administered on 10/29/19at 05:13; Start 10/29/19 at 03:00 Insulin Human Lispro (HumaLOG) 0-7 UNITS QIDACHS SQ ; Start 10/29/19 at 07:30 Dextrose (Dextrose 50%-Water Syringe) 12.5 gm PRN Q15MIN PRN IV SEE COMMENTS; Start 10/29/19 at 07:30 Labetalol HCl (Normodyne Iv Push) 20 mg PRN Q2HR PRN IVP HYPERTENSION; Start 10/29/19 at 07:45; Status UNV Fluticasone Propionate (Flonase) 2 spray DAILY NS ; Start 10/29/19 at 09:00; Status UNV Hydralazine HCl (Apresoline) 50 mg BID PO ; Start 10/29/19 at 09:00; Status UNV Pantoprazole Sodium (Protonix) 40 mg DAILYAC PO ; Start 10/30/19 at 07:30; Status UNV Non-Formulary Medication (Fluticasone/ Umeclidin/ Vilanter (Trelegy Ellipta 100-62.5-25)) 1 each BID IH ; Start 10/29/19 at 09:00; Status UNV Non-Formulary Medication (Isosorbide Mononitrate (Isosorbide Mononitrate Er)) 60 mg DAILY PO ; Start 10/29/19 at 09:00; Status UNV Non-Formulary Medication ([Nicotine 21MG] ) 1 patch DAILY TD ; Start 10/29/19 at 09:00; Status UNV Active Scripts Active Humalog (Insulin Lispro) 100 Unit/1 Ml Insuln.pen 0 Units SQ TIDWMEALS 30 Days Fluticasone Propionate Nasal [place] (Fluticasone Propionate) 16 Gm [place].susp 2 [place] NS DAILY 30 Days [Nicotine 21MG] 1 PATCH Patch 1 Patch TD DAILY 30 Days Reported Hydralazine Hcl 50 Mg Tablet 1 Tab PO BID Hydrocodone-Acetamin 7.5-325 (Hydrocodone/Acetaminophen) 1 Each Tablet 1 Each PO PRN Q6HRS PRN Isosorbide Mononitrate Er (Isosorbide Mononitrate) 60 Mg Tab.er.24h 60 Mg PO BID Furosemide 40 Mg Tablet 40 Mg PO DAILY Protonix (Pantoprazole Sodium) 40 Mg Tablet.dr 40 Mg PO DAILYAC Trelegy Ellipta 100-62.5-25 (Fluticasone/Umeclidin/Vilanter) 1 Each Blst.w.dev 1 Each IH BID Albuterol Sulfate Hfa Inhaler (Albuterol Sulfate) 8.5 Gm Hfa.aer.ad 8.5 Gm IH Allergies Allergies: Coded Allergies: No Known Drug Allergies (Unverified , 07/27/18) ROS General: YES: Fatigue, Malaise; No: Chills, Night Sweats, Appetite, Other PSYCHOLOGICAL ROS: No: Anxiety, Behavioral Disorder, Concentration difficultie, Decreased libido, Depression, Disorientation, Hallucinations, Hostility, Irritablity, Memory difficulties, Mood Swings, Obsessive thoughts, Physical abuse, Sexual abuse, Sleep disturbances, Suicidal ideation, Other Eyes: No Blurry vision, No Decreased vision, No Double vision, No Dry eyes, No Excessive tearing, No Eye Pain, No Itchy Eyes, No Loss of vision, No Photophobia, No Scotomata, No Uses contacts, No Uses glasses, No Other HEENT: YES: Heacaches; No: Visual Changes, Hearing change, Nasal congestion, Nasal discharge, Oral lesions, Sinus pain, Sore Throat, Epistaxis, Sneezing, Snoring, Tinnitus, Vertigo, Vocal changes, Other ALLERGY AND IMMUNOLOGY: No: Hives, Insect Bite Sensitivity, Itchy/Watery Eyes, Nasal Congestion, Post Nasal Drip, Seasonal Allergies, Other Hematological and Lymphatic: No: Bleeding Problems, Blood Clots, Blood Transfusions, Brusing, Night Sweats, Pallor, Swollen Lymph Nodes, Other ENDOCRINE: No: Breast Changes, Galactorrhea, Hair Pattern Changes, Hot Flashes, Malaise/lethargy, Mood Swings, Palpitations, Polydipsia/polyuria, Skin Changes, Temperature Intolerance, Unexpected Weight Changes, Other Breast: No New/Changing Breast Lumps, No Nipple changes, No Nipple discharge, No Other Respiratory: YES: Cough, Shortness of breath; No: Hemoptysis, Orthopnea, Pleuritic Pain, SOB with excertion, Sputum Changes, Stridor, Tachypnea, Wheezing, Other Cardiovascular: No Chest Pain, No Palpitations, No Orthopnea, No Paroxysmal Noc. Dyspnea, No Edema, No Lt Headedness, No Other Gastrointestinal: Yes Nausea, Yes Abdominal Pain; No Vomiting, No Diarrhea, No Constipation, No Melena, No Hematochezia, No Other Genitourinary: No Dysuria, No Frequency, No Incontinence, No Hematuria, No Retention, No Discharge, No Urgency, No Pain, No Flank Pain, No Other, No , No , No , No , No , No , No Musculoskeletal: No Gait Disturbance, No Joint Pain, No Joint Stiffness, No Joint Swelling, No Muscle Pain, No Muscular Weakness, No Pain In:, No Swelling In:, No Other Neurological: Yes Dizziness; No Behavorial Changes, No Bowel/Bladder ControlChng, No Confusion, No Gait Disturbance, No Headaches, No Impaired Coord/balance, No Memory Loss, No Numbness/Tingling, No Seizures, No Speech Problems, No Tremors, No Visual Changes, No Weakness, No Other Skin: No Dry Skin, No Eczema, No Hair Changes, No Lumps, No Mole Changes, No Mottling, No Nail Changes, No Pruritus, No Rash, No Skin Lesion Changes, No Other, No Acne Physical Exam General: Alert, Oriented X3, Cooperative, moderate distress HEENT: Atraumatic, PERRLA, EOMI, Mucous membr. moist/pink Lungs: Clear to auscultation, Normal air movement Heart: S1S2, RRR, no thrills, no rubs, no gallops, no murmurs Abdomen: Normal bowel sounds, Soft, No tenderness, No hepatosplenomegaly, No masses Rectal Exam: not examined Extremities: No clubbing, No cyanosis, No edema, Normal pulses, No tenderness/swelling Skin: No rashes, No breakdown, No significant lesion Neuro: Normal gait, Normal speech, Strength at 5/5 X4 ext, Normal tone, Sensation intact, Cranial nerves 3-12 NL, Reflexes 2+ Psych/Mental Status: Mental status NL, Mood NL, Other (Drowsy) Vitals Vitals Vital Signs Date Time Temp Pulse Resp B/P (MAP) Pulse Ox O2 Delivery O2 Flow Rate FiO2 10/29/19 05:13 93 199/119 10/29/19 04:33 98.5 17 94 Room Air 98.5 Labs Labs Laboratory Tests Test 10/28/19 21:40 10/29/19 01:20 10/29/19 05:20 White Blood Count 9.3 x10^3/uL (4.0-11.0) Red Blood Count 5.12 x10^6/uL (3.50-5.40) Hemoglobin 12.9 g/dL (12.0-15.5) Hematocrit 39.8 % (36.0-47.0) Mean Corpuscular Volume 78 fL (79-100) Mean Corpuscular Hemoglobin 25 pg (25-35) Mean Corpuscular Hemoglobin Concent 33 g/dL (31-37) Red Cell Distribution Width 16.1 % (11.5-14.5) Platelet Count 258 x10^3/uL (140-400) Neutrophils (%) (Auto) 69 % (31-73) Lymphocytes (%) (Auto) 21 % (24-48) Monocytes (%) (Auto) 7 % (0-9) Eosinophils (%) (Auto) 2 % (0-3) Basophils (%) (Auto) 1 % (0-3) Neutrophils # (Auto) 6.5 x10^3/uL (1.8-7.7) Lymphocytes # (Auto) 1.9 x10^3/uL (1.0-4.8) Monocytes # (Auto) 0.7 x10^3/uL (0.0-1.1) Eosinophils # (Auto) 0.2 x10^3/uL (0.0-0.7) Basophils # (Auto) 0.1 x10^3/uL (0.0-0.2) Sodium Level 140 mmol/L (136-145) Potassium Level 3.1 mmol/L (3.5-5.1) Chloride Level 102 mmol/L (98-107) Carbon Dioxide Level 25 mmol/L (21-32) Anion Gap 13 (6-14) Blood Urea Nitrogen 44 mg/dL (7-20) Creatinine 5.2 mg/dL (0.6-1.0) Estimated GFR (Cockcroft-Gault) 10.1 BUN/Creatinine Ratio 8 (6-20) Glucose Level 112 mg/dL (70-99) Calcium Level 8.6 mg/dL (8.5-10.1) Total Bilirubin 0.1 mg/dL (0.2-1.0) Aspartate Amino Transf (AST/SGOT) 15 U/L (15-37) Alanine Aminotransferase (ALT/SGPT) 10 U/L (14-59) Alkaline Phosphatase 142 U/L (46-116) Troponin I Quantitative 0.023 ng/mL (0.000-0.055) 0.026 ng/mL (0.000-0.055) 0.028 ng/mL (0.000-0.055) DD-Wxn-D-Type Natriuretic Peptide 5349 pg/mL (0-124) Total Protein 6.9 g/dL (6.4-8.2) Albumin 2.5 g/dL (3.4-5.0) Albumin/Globulin Ratio 0.6 (1.0-1.7) Laboratory Tests Test 10/28/19 21:40 10/29/19 01:20 10/29/19 05:20 White Blood Count 9.3 x10^3/uL (4.0-11.0) Red Blood Count 5.12 x10^6/uL (3.50-5.40) Hemoglobin 12.9 g/dL (12.0-15.5) Hematocrit 39.8 % (36.0-47.0) Mean Corpuscular Volume 78 fL (79-100) Mean Corpuscular Hemoglobin 25 pg (25-35) Mean Corpuscular Hemoglobin Concent 33 g/dL (31-37) Red Cell Distribution Width 16.1 % (11.5-14.5) Platelet Count 258 x10^3/uL (140-400) Neutrophils (%) (Auto) 69 % (31-73) Lymphocytes (%) (Auto) 21 % (24-48) Monocytes (%) (Auto) 7 % (0-9) Eosinophils (%) (Auto) 2 % (0-3) Basophils (%) (Auto) 1 % (0-3) Neutrophils # (Auto) 6.5 x10^3/uL (1.8-7.7) Lymphocytes # (Auto) 1.9 x10^3/uL (1.0-4.8) Monocytes # (Auto) 0.7 x10^3/uL (0.0-1.1) Eosinophils # (Auto) 0.2 x10^3/uL (0.0-0.7) Basophils # (Auto) 0.1 x10^3/uL (0.0-0.2) Sodium Level 140 mmol/L (136-145) Potassium Level 3.1 mmol/L (3.5-5.1) Chloride Level 102 mmol/L (98-107) Carbon Dioxide Level 25 mmol/L (21-32) Anion Gap 13 (6-14) Blood Urea Nitrogen 44 mg/dL (7-20) Creatinine 5.2 mg/dL (0.6-1.0) Estimated GFR (Cockcroft-Gault) 10.1 BUN/Creatinine Ratio 8 (6-20) Glucose Level 112 mg/dL (70-99) Calcium Level 8.6 mg/dL (8.5-10.1) Total Bilirubin 0.1 mg/dL (0.2-1.0) Aspartate Amino Transf (AST/SGOT) 15 U/L (15-37) Alanine Aminotransferase (ALT/SGPT) 10 U/L (14-59) Alkaline Phosphatase 142 U/L (46-116) Troponin I Quantitative 0.023 ng/mL (0.000-0.055) 0.026 ng/mL (0.000-0.055) 0.028 ng/mL (0.000-0.055) FF-Cgm-S-Type Natriuretic Peptide 5349 pg/mL (0-124) Total Protein 6.9 g/dL (6.4-8.2) Albumin 2.5 g/dL (3.4-5.0) Albumin/Globulin Ratio 0.6 (1.0-1.7) Images Images CXR: Lungs: Low lung volume. No pulmonary mass or consolidation. The tracheobronchial tree and hilar structures are normal. Pleura: No pleural effusion or pneumothorax. Heart and Mediastinum: Cardiomegaly. Tortuous atherosclerotic aorta. IMPRESSION: Lung volume. No consolidation. VTE Prophylaxis Ordered VTE Prophylaxis Devices: Yes VTE Pharmacological Prophylaxi: Yes Assessment/Plan Assessment/Plan A/P: Hypertensive emergency - with JONO, IV labetalol. Cont home meds as well. Consult nephrology and cardiology for assistance Elevated troponin - likely from above, will trend. 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 Prn nebs Diabetes-Type II - sliding scale insulin High Cholesterol Hypertension Sleep apnea Gastric ulcers - PPI JONO on Stage 5 CKD Smoker - counseled on cessation, she started smoking again Headache - likely related to HTN, will give compazine FEN - ADA diet PPX - heparin FULL CODE Dispo - inpatient Justicifation of Admission Dx: Justifications for Admission: Justification of Admission Dx: No Acute Renal Failure: Serum Cr > 4mg/dL SUSU SWEENEY MD Oct 29, 2019 08:01
[2019-10-29] MEDS: NICOTINE 21MG PATCH. TD SCH (09:00)
[2019-10-29] MEDS ORDERED: NON FORMULARY ITEM (Fluticasone/Umeclidin/Vilanter (Trelegy Ellipta 100-62.5-25) 1 EACH) IH SCH (09:00)
[2019-10-29] MEDS: ISOSORBIDE MONONITRATE ER 30 MG TAB.ER.24H PO SCH (09:42)
[2019-10-29] MEDS: PANTOPRAZOLE 40 MG TABLET.DR. PO SCH (09:42)
[2019-10-29] MEDS: HEPARIN for SUB-Q USE 5,000 UNIT/ML VIAL. SQ SCH ×2 (09:47→22:17)
[2019-10-29] MEDS: FLUTICASONE 50MCG/NASAL SPRAY 16GM BOTTLE. NS SCH (09:55)
[2019-10-29 11:22] VITALS: BP 143/76
[2019-10-29] MEDS: BUDESONIDE 0.5 MG/2 ML NEBU. NEB SCH ×2 (11:57→19:15)
[2019-10-29] MEDS: ALBUTEROL SULFATE 2.5 MG/3 ML NEBU. NEB SCH ×2 (11:57→19:15)
--- NOTE | 2019-10-29 12:56 | PDOC2 ---
CONSULT Date of Consult Date of Consult DATE: 10/29/19 TIME: 12:40 Reason for Consult Reason for Consult: CKD near stage V Referring Physician Referring Physician: Raza Identification/Chief Complaint Chief Complaint HTN Source Source: Chart review, Patient History of Present Illness Reason for Visit: Ms Persaud is a 64yo F w/ PMHx Asthma, longstanding diabetes-Type II, High Cholesterol, difficult to control hypertension, sleep apnea, gastric ulcers, Stage 4/5 CKD, long history of being smoker. She is followed by Dr. Stern as an outpatient. She was recently seen by our nurse practitioner. Patient has not been accepting of her diagnosis of chronic kidney disease and the proximity to dialysis. She was hence recommended to get a second opinion at [facility] or even get a kidney biopsy if she desired (per the patient's report). Today being the weekend I do not have access to those records from my office. She is known to have nephrotic range proteinuria based on previous 24-hour urine collections in 2019. I believe this is on the basis of diabetic hypertensive nephrosclerosis. I have reviewed her trend of creatinines dating back to 2017 as documented in our system Past Medical History Cardiovascular: HTN, Hyperlipidemia, Other Pulmonary: COPD, Other CENTRAL NERVOUS SYSTEM: Migraine GI: Constipation, Diverticulosis, GERD, GI bleed, Peptic Ulcer disease Heme/Onc: No pertinent hx Hepatobiliary: Hep A/B/C Psych: Anxiety, Depression Rheumatologic: No pertinent hx Infectious disease: No pertinent hx Renal/: Chronic renal insuff Endocrine: Diabetes Past Surgical History Past Surgical History: , Hernia Repair, Colon Resection, Other Family History Family History: No Significant Social History ALCOHOL: none Drugs: None Lives: with Family Current Medications Current Medications Current Medications Labetalol HCl (Normodyne Iv Push) 20 mg 1X ONCE IVP Last administered on 10/28/19at 22:49; Start 10/28/19 at 22:30; Stop 10/28/19 at 22:31; Status DC Acetaminophen/ Hydrocodone Bitart (Lortab 7.5/325) 1 tab PRN Q4HRS PRN PO PAIN Last administered on 10/29/19at 09:57; Start 10/29/19 at 03:00 Hydralazine HCl (Apresoline Inj) 5 mg 1X ONCE IVP Last administered on 10/29/19at 03:09; Start 10/29/19 at 03:00; Stop 10/29/19 at 03:04; Status DC Hydralazine HCl (Apresoline Inj) 5 mg PRN Q6HRS PRN IVP ELEVATED BP, SEE COMMENTS Last administered on 10/29/19at 05:13; Start 10/29/19 at 03:00 Insulin Human Lispro (HumaLOG) 0-7 UNITS QIDACHS SQ ; Start 10/29/19 at 07:30 Dextrose (Dextrose 50%-Water Syringe) 12.5 gm PRN Q15MIN PRN IV SEE COMMENTS; Start 10/29/19 at 07:30 Labetalol HCl (Normodyne Iv Push) 20 mg PRN Q2HR PRN IVP HYPERTENSION; Start 10/29/19 at 07:45 Fluticasone Propionate (Flonase) 2 spray DAILY NS Last administered on 10/29/19at 09:55; Start 10/29/19 at 09:00 Hydralazine HCl (Apresoline) 50 mg BID PO Last administered on 10/29/19at 09:43; Start 10/29/19 at 09:00 Pantoprazole Sodium (Protonix) 40 mg DAILYAC PO Last administered on 10/29/19at 09:42; Start 10/29/19 at 08:00 Non-Formulary Medication (Fluticasone/ Umeclidin/ Vilanter (Trelegy Ellipta 100-62.5-25)) 1 each BID IH ; Start 10/29/19 at 09:00; Status UNV Isosorbide Mononitrate (Imdur) 60 mg DAILY PO Last administered on 10/29/19at 09:42; Start 10/29/19 at 09:00 Nicotine (Nicoderm Cq 21mg) 1 patch DAILY TD ; Start 10/29/19 at 09:00 Heparin Sodium (Porcine) (Heparin Sodium) 5,000 unit Q12HR SQ Last administered on 10/29/19at 09:47; Start 10/29/19 at 09:00 Albuterol Sulfate (Ventolin Neb Soln) 2.5 mg Q6HRS NEB Last administered on 10/29/19at 11:57; Start 10/29/19 at 12:00 Budesonide (Pulmicort) 0.5 mg RTBID NEB Last administered on 10/29/19at 11:57; Start 10/29/19 at 08:30 Active Scripts Active Humalog (Insulin Lispro) 100 Unit/1 Ml Insuln.pen 0 Units SQ TIDWMEALS 30 Days Fluticasone Propionate Nasal [place] (Fluticasone Propionate) 16 Gm [place].susp 2 [place] NS DAILY 30 Days [Nicotine 21MG] 1 PATCH Patch 1 Patch TD DAILY 30 Days Reported Hydralazine Hcl 50 Mg Tablet 1 Tab PO BID Hydrocodone-Acetamin 7.5-325 (Hydrocodone/Acetaminophen) 1 Each Tablet 1 Each PO PRN Q6HRS PRN Isosorbide Mononitrate Er (Isosorbide Mononitrate) 60 Mg Tab.er.24h 60 Mg PO BID Furosemide 40 Mg Tablet 40 Mg PO DAILY Protonix (Pantoprazole Sodium) 40 Mg Tablet.dr 40 Mg PO DAILYAC Trelegy Ellipta 100-62.5-25 (Fluticasone/Umeclidin/Vilanter) 1 Each Blst.w.dev 1 Each IH BID Albuterol Sulfate Hfa Inhaler (Albuterol Sulfate) 8.5 Gm Hfa.aer.ad 8.5 Gm IH Allergies Allergies: Coded Allergies: No Known Drug Allergies (Unverified , 07/27/18) ROS Review of System 14 point review of systems as outlined in HPI otherwise negative Physical Exam Physical Exam General Appearance: Awake Alert Oriented x 3 In min Distress Eyes: VIsion Unchanged Conjunctiva Normal EN: No EN Drainage Mucous Memb. moist Neck: no JVD min JVP Supple no Thyromegaly CVS: S1 S2 soft Murmur No Gallop No Rub tr Edema Resp: no Rales no Rhonchi no Acc. Muscle use GI: BAS +ve NO Bruit Non Tender Non Distended : no CVA tenderness; no Suprapubic Tenderness SKIN: no Rashes Breast Exam deferred Mu.Sk: Adequate ROM no Muscle Atrophy Heme: Unable to palpate Obvious LAD no palp Splenomegaly NEURO: Good Strength and Tone Cranial Nerves II - XII grossly intact Psych: not Depressed no Active hallucination Vital Signs Vital Signs Date Time Temp Pulse Resp B/P (MAP) Pulse Ox O2 Delivery O2 Flow Rate FiO2 10/29/19 12:00 96 Room Air 10/29/19 11:22 98.4 69 18 143/76 (98) 98.4 Assessment & Plan CKD stage V: No obvious uremic signs symptoms at this time. Current FLuid and E-lyte status does not necessitate emergent need for Dialysis. Will re-evaluate for Dialysis in am. I have had a discussion with the patient regarding potential need for initiation of dialysis but she is not very accepting of the same. Hypoalbuminemia: Presumably due to nephrotic range proteinuria Nephrotic syndrome: Presumed diabetic hypertensive nephrosclerosis. We discussed pros and cons of doing a kidney biopsy at current advanced ages of CKD especially with more likely an obvious diagnosis of diabetic hypertensive nephrosclerosis. She will think about it over the weekend. SPEP UPEP can be considered given low A/G ratio and will be ordered Hypokalemia: Potassium supplementation as needed Malignant/difficult to control HTN: Current BP meds reviewed. Add Aldactone Possible renovascular hypertension: Abdominal CTA from 2016 has shown atherosclerotic calcification involving proximal renal arteries bilaterally. No hemodynamically significant stenosis is seen. Hence RAAS blockade may be useful in controlling blood pressure. Start Aldactone. May need angiography to rule out bilateral renal artery stenosis Previous imaging studies have shown possible adrenal adenoma also. Hence Aldactone will be used in case this is an endocrinologically active adenoma Complex renal cyst was noted on ultrasound: CT abdomen is reviewed is nonrevealing for obvious mass per se Discussed Plan of Care and prognosis etc. at length with family. Labs Labs Laboratory Tests Test 10/28/19 21:40 10/29/19 01:20 10/29/19 05:20 10/29/19 07:54 White Blood Count 9.3 x10^3/uL (4.0-11.0) Red Blood Count 5.12 x10^6/uL (3.50-5.40) Hemoglobin 12.9 g/dL (12.0-15.5) Hematocrit 39.8 % (36.0-47.0) Mean Corpuscular Volume 78 fL (79-100) Mean Corpuscular Hemoglobin 25 pg (25-35) Mean Corpuscular Hemoglobin Concent 33 g/dL (31-37) Red Cell Distribution Width 16.1 % (11.5-14.5) Platelet Count 258 x10^3/uL (140-400) Neutrophils (%) (Auto) 69 % (31-73) Lymphocytes (%) (Auto) 21 % (24-48) Monocytes (%) (Auto) 7 % (0-9) Eosinophils (%) (Auto) 2 % (0-3) Basophils (%) (Auto) 1 % (0-3) Neutrophils # (Auto) 6.5 x10^3/uL (1.8-7.7) Lymphocytes # (Auto) 1.9 x10^3/uL (1.0-4.8) Monocytes # (Auto) 0.7 x10^3/uL (0.0-1.1) Eosinophils # (Auto) 0.2 x10^3/uL (0.0-0.7) Basophils # (Auto) 0.1 x10^3/uL (0.0-0.2) Sodium Level 140 mmol/L (136-145) Potassium Level 3.1 mmol/L (3.5-5.1) Chloride Level 102 mmol/L (98-107) Carbon Dioxide Level 25 mmol/L (21-32) Anion Gap 13 (6-14) Blood Urea Nitrogen 44 mg/dL (7-20) Creatinine 5.2 mg/dL (0.6-1.0) Estimated GFR (Cockcroft-Gault) 10.1 BUN/Creatinine Ratio 8 (6-20) Glucose Level 112 mg/dL (70-99) Calcium Level 8.6 mg/dL (8.5-10.1) Total Bilirubin 0.1 mg/dL (0.2-1.0) Aspartate Amino Transf (AST/SGOT) 15 U/L (15-37) Alanine Aminotransferase (ALT/SGPT) 10 U/L (14-59) Alkaline Phosphatase 142 U/L (46-116) Troponin I Quantitative 0.023 ng/mL (0.000-0.055) 0.026 ng/mL (0.000-0.055) 0.028 ng/mL (0.000-0.055) OU-Rrh-I-Type Natriuretic Peptide 5349 pg/mL (0-124) Total Protein 6.9 g/dL (6.4-8.2) Albumin 2.5 g/dL (3.4-5.0) Albumin/Globulin Ratio 0.6 (1.0-1.7) Glucose (Fingerstick) 117 mg/dL (70-99) Test 10/29/19 11:40 Glucose (Fingerstick) 137 mg/dL (70-99) Laboratory Tests Test 10/28/19 21:40 10/29/19 01:20 10/29/19 05:20 10/29/19 07:54 White Blood Count 9.3 x10^3/uL (4.0-11.0) Red Blood Count 5.12 x10^6/uL (3.50-5.40) Hemoglobin 12.9 g/dL (12.0-15.5) Hematocrit 39.8 % (36.0-47.0) Mean Corpuscular Volume 78 fL (79-100) Mean Corpuscular Hemoglobin 25 pg (25-35) Mean Corpuscular Hemoglobin Concent 33 g/dL (31-37) Red Cell Distribution Width 16.1 % (11.5-14.5) Platelet Count 258 x10^3/uL (140-400) Neutrophils (%) (Auto) 69 % (31-73) Lymphocytes (%) (Auto) 21 % (24-48) Monocytes (%) (Auto) 7 % (0-9) Eosinophils (%) (Auto) 2 % (0-3) Basophils (%) (Auto) 1 % (0-3) Neutrophils # (Auto) 6.5 x10^3/uL (1.8-7.7) Lymphocytes # (Auto) 1.9 x10^3/uL (1.0-4.8) Monocytes # (Auto) 0.7 x10^3/uL (0.0-1.1) Eosinophils # (Auto) 0.2 x10^3/uL (0.0-0.7) Basophils # (Auto) 0.1 x10^3/uL (0.0-0.2) Sodium Level 140 mmol/L (136-145) Potassium Level 3.1 mmol/L (3.5-5.1) Chloride Level 102 mmol/L (98-107) Carbon Dioxide Level 25 mmol/L (21-32) Anion Gap 13 (6-14) Blood Urea Nitrogen 44 mg/dL (7-20) Creatinine 5.2 mg/dL (0.6-1.0) Estimated GFR (Cockcroft-Gault) 10.1 BUN/Creatinine Ratio 8 (6-20) Glucose Level 112 mg/dL (70-99) Calcium Level 8.6 mg/dL (8.5-10.1) Total Bilirubin 0.1 mg/dL (0.2-1.0) Aspartate Amino Transf (AST/SGOT) 15 U/L (15-37) Alanine Aminotransferase (ALT/SGPT) 10 U/L (14-59) Alkaline Phosphatase 142 U/L (46-116) Troponin I Quantitative 0.023 ng/mL (0.000-0.055) 0.026 ng/mL (0.000-0.055) 0.028 ng/mL (0.000-0.055) PV-Ahf-L-Type Natriuretic Peptide 5349 pg/mL (0-124) Total Protein 6.9 g/dL (6.4-8.2) Albumin 2.5 g/dL (3.4-5.0) Albumin/Globulin Ratio 0.6 (1.0-1.7) Glucose (Fingerstick) 117 mg/dL (70-99) Test 10/29/19 11:40 Glucose (Fingerstick) 137 mg/dL (70-99) Review All relevant outside records, renal labs, imaging studies, telemetry/EKG's were reviewed. Images Images Renal artery duplex in 2018 No acute sonographic abnormality. No evidence of hemodynamically significant renal artery stenosis. Renal sonogram: IMPRESSION: 1. No hydronephrosis. 2. Renal cysts as described above, one of which is mildly complex. Further evaluation with nonemergent renal protocol CT or MRI is recommended nonemergent/outpatient setting. CT scan abdomen done this hospitalization: * Multiple anterior abdominal wall hernias are identified containing fat with one of them near the umbilicus again containing a portion of the bowel. There is no evidence of associated obstruction. * No hydronephrosis. * Bilateral low-density renal lesions are again seen and incompletely characterized on noncontrast imaging. Couple of these are likely cystic in nature. * Pericardial effusion is again seen. CHASE MEDRANO MD Oct 29, 2019 12:56
[2019-10-29] MEDS ORDERED: MAGNESIUM SULFATE 2GM 50 ML IV PRN (13:00)
[2019-10-29] MEDS: POTASSIUM CHLORIDE 20 MEQ TABLET.ER. PO SCH ×2 (14:14→17:30)
[2019-10-29 14:18] VITALS: BP 149/96
[2019-10-29] MEDS: traMADol 50 MG TABLET PO PRN (18:28)
[2019-10-29 19:38] VITALS: BP 193/102
[2019-10-29] MEDS: PSYLLIUM HUSK (SUGAR FREE) 1 PKT PACKET PO SCH (21:57)
[2019-10-29] MEDS: POLYETHYLENE GLYCOL 3350 17 GM PACKET. PO SCH (21:57)
[2019-10-29] MEDS: SPIRONOLACTONE 25 MG TABLET PO SCH (21:58)
[2019-10-29] MEDS: PROCHLORPERAZINE 10 MG/2 ML VIAL. IV PRN (22:00)
[2019-10-29 22:03] VITALS: BP 194/117
[2019-10-30] VITALS (7 sets, daily range): BP systolic 139–212; BP diastolic 88–104
[2019-10-30] MEDS: traMADol 50 MG TABLET PO PRN ×3 (01:16→16:18)
[2019-10-30] MEDS: LABETALOL 20 MG/4 ML DISP.SYRIN. IVP PRN ×2 (04:57→07:57)
[2019-10-30] MEDS: PROCHLORPERAZINE 10 MG/2 ML VIAL. IV PRN ×3 (04:58→16:18)
[2019-10-30 05:59] LABS: ALBUMIN 2.2 g/dL (3.4-5.0); CALCIUM 8.6 mg/dL (8.5-10.1); CREATININE 5.2 mg/dL (0.6-1.0); GFR 10.1; PHOSPHORUS 3.8 mg/dL (2.6-4.7); POTASSIUM 3.3 mmol/L (3.5-5.1)
[2019-10-30] MEDS: ALBUTEROL SULFATE 2.5 MG/3 ML NEBU. NEB SCH ×4 (07:18→20:22)
[2019-10-30] MEDS: BUDESONIDE 0.5 MG/2 ML NEBU. NEB SCH ×2 (07:18→20:22)
[2019-10-30] MEDS: PANTOPRAZOLE 40 MG TABLET.DR. PO SCH (07:56)
--- NOTE | 2019-10-30 08:15 | PDOC2 ---
CARDIOLOGY CONSULT NOTE CHIEF COMPLAINT: Late entry for 10/29/2019 Dyspnea HPI: Well know to my service. She has chronic dyspnea, HTN and poor med compliance. Was seen in office on thursday. Given Hydralazine and imdur due to CKD but ended up in hospital. PMHX: HTn CKD Dyslipidemia Tobacco abuse SOCHX: +smoking FAMHX: NC CURRENT MEDS: Current Medications Medications (Trade) Dose Ordered Sig/Howard Route PRN Reason Start Time Stop Time Status Last Admin Dose Admin Fluticasone Propionate (Flonase) 2 spray DAILY NS 10/29/19 09:00 10/29/19 09:55 Hydralazine HCl (Apresoline) 50 mg BID PO 10/29/19 09:00 10/29/19 12:55 DC 10/29/19 09:43 Isosorbide Mononitrate (Imdur) 60 mg DAILY PO 10/29/19 09:00 10/29/19 09:42 Heparin Sodium (Porcine) (Heparin Sodium) 5,000 unit Q12HR SQ 10/29/19 09:00 10/29/19 22:17 Albuterol Sulfate (Ventolin Neb Soln) 2.5 mg Q6HRS NEB 10/29/19 12:00 10/30/19 07:18 Budesonide (Pulmicort) 0.5 mg RTBID NEB 10/29/19 08:30 10/30/19 07:18 Hydralazine HCl (Apresoline) 100 mg TID PO 10/29/19 13:00 10/29/19 21:59 Spironolactone (Aldactone) 25 mg BID PO 10/29/19 21:00 10/29/19 21:58 Potassium Chloride (Klor-Con) 40 meq QID PO 10/29/19 13:00 10/29/19 17:01 DC 10/29/19 17:30 Prochlorperazine Edisylate (Compazine) 10 mg PRN Q6HRS PRN IV HUANG/NAUSEA/VOMITING 10/29/19 17:15 10/30/19 04:58 Tramadol HCl (Ultram) 50 mg PRN Q6HRS PRN PO PAIN 10/29/19 17:15 10/30/19 01:16 Psyllium Hydrophilic Mucilloid (Metamucil Fiber Packet) 1 pkt QHS PO 10/29/19 21:00 10/29/19 21:57 Polyethylene Glycol (miraLAX PACKET) 17 gm QHS PO 10/29/19 21:00 10/29/19 21:57 ALLERGIES: Allergies Coded Allergies Type Severity Reaction Last Updated Verified No Known Drug Allergies 07/27/18 No ROS: Negative for 01/31 systems reviewed unless noted above in HPI PHYSICAL EXAM: Vital Signs/I&O: Vital Signs Date Time Temp Pulse Resp B/P (MAP) Pulse Ox O2 Delivery O2 Flow Rate FiO2 10/30/19 07:57 91 212/109 10/30/19 07:20 100 Room Air 10/30/19 04:00 98.0 20 98.0 I & O 10/29/19 10/29/19 10/30/19 15:00 23:00 07:00 Intake Total 360 ml 240 ml 200 ml Output Total 800 ml 400 ml Balance 360 ml -560 ml -200 ml Physical Exam: GEN.: No apparent distress. Alert and oriented. HEENT: Head is normocephalic, atraumatic NECK: Supple. LUNGS: Clear to auscultation. HEART: RRR, S1, S2 present. Peripheral pulses intact ABDOMEN: Soft, nontender. Positive bowel sounds. EXTREMITIES: Without any cyanosis. NEUROLOGIC: Normal speech, normal tone PSYCHIATRIC: Normal affect, normal mood. SKIN: No ulcerations DIAGNOSTIC TESTING: Labs reviewed Lab Laboratory Tests Test 10/29/19 11:40 10/29/19 16:22 10/29/19 20:58 10/30/19 05:31 Glucose (Fingerstick) 137 mg/dL (70-99) H 145 mg/dL (70-99) H 172 mg/dL (70-99) H Hemoglobin 11.7 g/dL (12.0-15.5) L Sodium Level 141 mmol/L (136-145) Potassium Level 3.3 mmol/L (3.5-5.1) L Chloride Level 104 mmol/L (98-107) Carbon Dioxide Level 22 mmol/L (21-32) Anion Gap 15 (6-14) H Blood Urea Nitrogen 44 mg/dL (7-20) H Creatinine 5.2 mg/dL (0.6-1.0) H Estimated GFR (Cockcroft-Gault) 10.1 Glucose Level 141 mg/dL (70-99) H Calcium Level 8.6 mg/dL (8.5-10.1) Phosphorus Level 3.8 mg/dL (2.6-4.7) Albumin 2.2 g/dL (3.4-5.0) L Test 10/30/19 08:09 Glucose (Fingerstick) 151 mg/dL (70-99) H Laboratory Tests 10/30/19 05:31 ASSESSMENT: 1. HTN 2. COPD 3. Diastolic HF 4. CKD PLAN: 1. Continue BP meds. No further CV testing needed. Supportive care. VINCE FRIAS MD Oct 30, 2019 08:15
--- NOTE | 2019-10-30 08:18 | PDOC ---
SUBJECTIVE ROS Follow-up for CKD 4/5 Patient reports feeling a little better but blood pressures remain significantly elevated. 24-hour urine collection ongoing at this time CVS: no Orthopnea, no CP RESP: no SOB, no SNELL GI: no Nausea, no Vomiting : no Dysuria, no Urgency OBJECTIVE Vital Signs Vital Signs Date Time Temp Pulse Resp B/P (MAP) Pulse Ox O2 Delivery O2 Flow Rate FiO2 10/30/19 07:57 91 212/109 10/30/19 07:20 100 Room Air 10/30/19 04:00 98.0 20 98.0 I & 0 Intake and Output 10/30/19 07:00 Intake Total 800 ml Output Total 1200 ml Balance -400 ml Intake Oral 800 ml Output Urine Total 1200 ml PHYSICAL EXAM Physical Exam General Appearance: Awake Alert Oriented x 3 In min Distress Eyes: VIsion Unchanged Conjunctiva Normal EN: No EN Drainage Mucous Memb. moist Neck: no JVD min JVP Supple no Thyromegaly CVS: S1 S2 soft Murmur No Gallop No Rub tr Edema Resp: no Rales no Rhonchi no Acc. Muscle use GI: BS +ve NO Bruit Non Tender Non Distended : no CVA tenderness; no Suprapubic Tenderness SKIN: no Rashes Breast Exam deferred Mu.Sk: Adequate ROM no Muscle Atrophy Heme: Unable to palpate Obvious LAD no palp Splenomegaly NEURO: Good Strength and Tone Cranial Nerves II - XII grossly intact Psych: not Depressed no Active hallucination; Poor insight into her health issues Assessment & Plan CKD stage V: No obvious uremic signs symptoms at this time. Current FLuid and E-lyte status does not necessitate emergent need for Dialysis. Will re-evaluate for Dialysis in am. Hypoalbuminemia: Presumably due to nephrotic range proteinuria. Quantitation ongoing with 24-hour urine collection History of nephrotic syndrome: Presumed diabetic hypertensive nephrosclerosis. SPEP UPEP as ordered with ongoing 24-hour urine collection Hypokalemia: Potassium supplementation as ordered. Added Aldactone also. Magnesium is adequate Malignant/difficult to control HTN: Current BP meds reviewed. Added Aldactone. Will add Cardizem. Urine drug screen will also be checked Possible renovascular hypertension: Abdominal CTA from 2016 has shown atherosclerotic calcification involving proximal renal arteries bilaterally. No hemodynamically significant stenosis was seen then. Hence RAAS blockade may be useful in controlling blood pressure. Started Aldactone. May need angiography to rule out bilateral renal artery stenosis if blood pressure remains difficult to control Previous imaging studies have shown possible adrenal adenoma also. Hence Aldactone will be used in case this is an endocrinologically active adenoma Marginal new onset anemia. Patient denies blood loss Complex renal cyst was noted on ultrasound: Most recent CT abdomen report as reviewed is nonrevealing for obvious mass per se Discussed Plan of Care and prognosis etc. at length with patient COMMENT/RELEVANT DATA Meds Current Medications Medications (Trade) Dose Ordered Sig/Howard Start Time Stop Time Status Last Admin Dose Admin Acetaminophen/ Hydrocodone Bitart (Lortab 7.5/325) 1 tab PRN Q4HRS PRN 10/29/19 03:00 10/29/19 17:08 DC 10/29/19 09:57 1 TAB Albuterol Sulfate (Ventolin Neb Soln) 2.5 mg Q6HRS 10/29/19 12:00 10/30/19 07:18 2.5 MG Budesonide (Pulmicort) 0.5 mg RTBID 10/29/19 08:30 10/30/19 07:18 0.5 MG Dextrose (Dextrose 50%-Water Syringe) 12.5 gm PRN Q15MIN PRN 10/29/19 07:30 Fluticasone Propionate (Flonase) 2 spray DAILY 10/29/19 09:00 10/29/19 09:55 2 SPRAY Heparin Sodium (Porcine) (Heparin Sodium) 5,000 unit Q12HR 10/29/19 09:00 10/29/19 22:17 5,000 UNIT Hydralazine HCl (Apresoline Inj) 5 mg PRN Q6HRS PRN 10/29/19 03:00 10/29/19 20:47 5 MG Hydralazine HCl (Apresoline) 100 mg TID 10/29/19 13:00 10/29/19 21:59 100 MG Insulin Human Lispro (HumaLOG) 0-7 UNITS QIDACHS 10/29/19 07:30 Isosorbide Mononitrate (Imdur) 60 mg DAILY 10/29/19 09:00 10/29/19 09:42 60 MG Labetalol HCl (Normodyne Iv Push) 20 mg PRN Q2HR PRN 10/29/19 07:45 10/30/19 07:57 20 MG Magnesium Sulfate 50 ml @ 25 mls/hr PRN DAILY PRN 10/29/19 13:00 Nicotine (Nicoderm Cq 21mg) 1 patch DAILY 10/29/19 09:00 Non-Formulary Medication (Fluticasone/ Umeclidin/ Vilanter (Trelegy Ellipta 100-62.5-25)) 1 each BID 10/29/19 09:00 UNV Pantoprazole Sodium (Protonix) 40 mg DAILYAC 10/29/19 08:00 10/30/19 07:56 40 MG Polyethylene Glycol (miraLAX PACKET) 17 gm QHS 10/29/19 21:00 10/29/19 21:57 17 GM Potassium Chloride (Klor-Con) 40 meq QID 10/29/19 13:00 10/29/19 17:01 DC 10/29/19 17:30 40 MEQ Prochlorperazine Edisylate (Compazine) 10 mg PRN Q6HRS PRN 10/29/19 17:15 10/30/19 04:58 10 MG Psyllium Hydrophilic Mucilloid (Metamucil Fiber Packet) 1 pkt QHS 10/29/19 21:00 10/29/19 21:57 1 PKT Spironolactone (Aldactone) 25 mg BID 10/29/19 21:00 10/29/19 21:58 25 MG Tramadol HCl (Ultram) 50 mg PRN Q6HRS PRN 10/29/19 17:15 10/30/19 01:16 50 MG Lab Laboratory Tests Test 10/29/19 11:40 10/29/19 16:22 10/29/19 20:58 10/30/19 05:31 Glucose (Fingerstick) 137 mg/dL (70-99) 145 mg/dL (70-99) 172 mg/dL (70-99) Hemoglobin 11.7 g/dL (12.0-15.5) Sodium Level 141 mmol/L (136-145) Potassium Level 3.3 mmol/L (3.5-5.1) Chloride Level 104 mmol/L (98-107) Carbon Dioxide Level 22 mmol/L (21-32) Anion Gap 15 (6-14) Blood Urea Nitrogen 44 mg/dL (7-20) Creatinine 5.2 mg/dL (0.6-1.0) Estimated GFR (Cockcroft-Gault) 10.1 Glucose Level 141 mg/dL (70-99) Calcium Level 8.6 mg/dL (8.5-10.1) Phosphorus Level 3.8 mg/dL (2.6-4.7) Magnesium Level 2.0 mg/dL (1.8-2.4) Albumin 2.2 g/dL (3.4-5.0) Results All relevant outside records, renal labs, imaging studies, telemetry/EKG's were reviewed. Justicifation of Admission Dx: Justifications for Admission: Justification of Admission Dx: No Acute Renal Failure: Serum Cr > 4mg/dL CHASE MEDRANO MD Oct 30, 2019 08:18
[2019-10-30] MEDS: FLUTICASONE 50MCG/NASAL SPRAY 16GM BOTTLE. NS SCH (08:32)
[2019-10-30] MEDS: SPIRONOLACTONE 25 MG TABLET PO SCH ×2 (08:33→20:42)
[2019-10-30] MEDS: ISOSORBIDE MONONITRATE ER 30 MG TAB.ER.24H PO SCH (08:33)
[2019-10-30] MEDS: POTASSIUM CHLORIDE 20 MEQ TABLET.ER. PO SCH ×2 (08:34→18:01)
[2019-10-30] MEDS: HEPARIN for SUB-Q USE 5,000 UNIT/ML VIAL. SQ SCH ×2 (08:39→20:45)
[2019-10-30] MEDS: INSULIN LISPRO 300 UNITS/3 ML VIAL. SQ SCH ×4 (08:40→20:47)
[2019-10-30] MEDS: NICOTINE 21MG PATCH. TD SCH (08:40)
--- NOTE | 2019-10-30 10:31 | PDOC ---
PROGRESS NOTES Chief Complaint Chief Complaint Hypertensive emergency - with JONO, IV labetalol. Cont home meds as well. Consult nephrology and cardiology for assistance Elevated troponin - likely from above, will trend. Asthma with COPD - longterm smoker. Prn nebs Diabetes-Type II - sliding scale insulin High Cholesterol Hypertension Sleep apnea Gastric ulcers - PPI JONO on Stage 5 CKD Smoker - counseled on cessation, she started smoking again Headache - likely related to HTN, will give compazine FEN - ADA diet PPX - heparin FULL CODE Dispo - inpatient History of Present Illness History of Present Illness Ms Persaud is a 64yo F w/ PMHx Asthma, Diabetes-Type II, High Cholesterol, Hy pertension, sleep apnea, gastric ulcers, Stage 5 CKD, smoker who p/w headache dizziness and elevated blood pressure. Patient states she saw her science liaison today blood pressure was severely elevated at that time. Patient states she was started on new blood pressure medications. She admits to taking all her medications but this evening symptoms of headache dizziness continued patient did not feel any better. Patient presents for further evaluation. On arrival patient's blood pressure was greater than 200/100 systolic. Patient was treated with labetalol 20 mg IV push. Patient's blood pressure improved to the 190s systolic, but diastolic remained 119mmHg. Denies any associated chest pain. On further review from previous hospital discharge she was told to restart losartan hydrochlorothiazide, then was instructed by cardiology to start on appropriate medications, Imdur and hydralazine. However she was instructed by someone at her PCP office to go ahead back on the losartan hydrochlorothiazide. Her primary complaint with me today is actually a headache and she is asking for hydrocodone for this. WBC 9.3, Hb 12.9, platelets 258, NA 140, K3.1, BUN 44, CR 5.2, glucose 112, troponin 0.023 EKG with HR [address] elevation no ST depression no acute MS CXR: No acute changes Admitted for further care Despite addition of CCB still with significantly elevated BP and headache as well as abdominal pain. Nausea. Creatinine stable at 5.2 potassium 3.3. Follow nephrology recommendations. Vitals Vitals Vital Signs Date Time Temp Pulse Resp B/P (MAP) Pulse Ox O2 Delivery O2 Flow Rate FiO2 10/30/19 08:33 91 212/109 10/30/19 08:32 18 Room Air 10/30/19 07:20 100 10/30/19 07:00 98.9 98.9 Physical Exam General: Alert, Oriented X3, Cooperative, moderate distress Lungs: Clear Abdomen: Normal bowel sounds, Soft, No tenderness, No hepatosplenomegaly, No masses Extremities: No clubbing, No cyanosis, No edema, Normal pulses, No tenderness/swelling Skin: No rashes, No breakdown, No significant lesion Labs LABS Laboratory Tests Test 10/29/19 11:40 10/29/19 16:22 10/29/19 20:58 10/30/19 05:31 Glucose (Fingerstick) 137 mg/dL (70-99) 145 mg/dL (70-99) 172 mg/dL (70-99) Hemoglobin 11.7 g/dL (12.0-15.5) Sodium Level 141 mmol/L (136-145) Potassium Level 3.3 mmol/L (3.5-5.1) Chloride Level 104 mmol/L (98-107) Carbon Dioxide Level 22 mmol/L (21-32) Anion Gap 15 (6-14) Blood Urea Nitrogen 44 mg/dL (-20) Creatinine 5.2 mg/dL (0.6-1.0) Estimated GFR (Cockcroft-Gault) 10.1 Glucose Level 141 mg/dL (70-99) Calcium Level 8.6 mg/dL (8.5-10.1) Phosphorus Level 3.8 mg/dL (2.6-4.7) Magnesium Level 2.0 mg/dL (1.8-2.4) Albumin 2.2 g/dL (3.4-5.0) Test 10/30/19 08:09 Glucose (Fingerstick) 151 mg/dL (70-99) Comment Review of Relevant I have reviewed the following items munir (where applicable) has been applied. Labs Laboratory Tests Test 10/28/19 21:40 10/29/19 01:20 10/29/19 05:20 10/29/19 07:54 White Blood Count 9.3 x10^3/uL (4.0-11.0) Red Blood Count 5.12 x10^6/uL (3.50-5.40) Hemoglobin 12.9 g/dL (12.0-15.5) Hematocrit 39.8 % (36.0-47.0) Mean Corpuscular Volume 78 fL (79-100) Mean Corpuscular Hemoglobin 25 pg (25-35) Mean Corpuscular Hemoglobin Concent 33 g/dL (31-37) Red Cell Distribution Width 16.1 % (11.5-14.5) Platelet Count 258 x10^3/uL (140-400) Neutrophils (%) (Auto) 69 % (31-73) Lymphocytes (%) (Auto) 21 % (24-48) Monocytes (%) (Auto) 7 % (0-9) Eosinophils (%) (Auto) 2 % (0-3) Basophils (%) (Auto) 1 % (0-3) Neutrophils # (Auto) 6.5 x10^3/uL (1.8-7.7) Lymphocytes # (Auto) 1.9 x10^3/uL (1.0-4.8) Monocytes # (Auto) 0.7 x10^3/uL (0.0-1.1) Eosinophils # (Auto) 0.2 x10^3/uL (0.0-0.7) Basophils # (Auto) 0.1 x10^3/uL (0.0-0.2) Sodium Level 140 mmol/L (136-145) Potassium Level 3.1 mmol/L (3.5-5.1) Chloride Level 102 mmol/L (98-107) Carbon Dioxide Level 25 mmol/L (21-32) Anion Gap 13 (6-14) Blood Urea Nitrogen 44 mg/dL (7-20) Creatinine 5.2 mg/dL (0.6-1.0) Estimated GFR (Cockcroft-Gault) 10.1 BUN/Creatinine Ratio 8 (6-20) Glucose Level 112 mg/dL (70-99) Calcium Level 8.6 mg/dL (8.5-10.1) Total Bilirubin 0.1 mg/dL (0.2-1.0) Aspartate Amino Transf (AST/SGOT) 15 U/L (15-37) Alanine Aminotransferase (ALT/SGPT) 10 U/L (14-59) Alkaline Phosphatase 142 U/L (46-116) Troponin I Quantitative 0.023 ng/mL (0.000-0.055) 0.026 ng/mL (0.000-0.055) 0.028 ng/mL (0.000-0.055) IT-Cqu-X-Type Natriuretic Peptide 5349 pg/mL (0-124) Total Protein 6.9 g/dL (6.4-8.2) Albumin 2.5 g/dL (3.4-5.0) Albumin/Globulin Ratio 0.6 (1.0-1.7) Glucose (Fingerstick) 117 mg/dL (70-99) Test 10/29/19 11:40 10/29/19 16:22 10/29/19 20:58 10/30/19 05:31 Glucose (Fingerstick) 137 mg/dL (70-99) 145 mg/dL (70-99) 172 mg/dL (70-99) Hemoglobin 11.7 g/dL (12.0-15.5) Sodium Level 141 mmol/L (136-145) Potassium Level 3.3 mmol/L (3.5-5.1) Chloride Level 104 mmol/L (98-107) Carbon Dioxide Level 22 mmol/L (21-32) Anion Gap 15 (6-14) Blood Urea Nitrogen 44 mg/dL (7-20) Creatinine 5.2 mg/dL (0.6-1.0) Estimated GFR (Cockcroft-Gault) 10.1 Glucose Level 141 mg/dL (70-99) Calcium Level 8.6 mg/dL (8.5-10.1) Phosphorus Level 3.8 mg/dL (2.6-4.7) Magnesium Level 2.0 mg/dL (1.8-2.4) Albumin 2.2 g/dL (3.4-5.0) Test 10/30/19 08:09 Glucose (Fingerstick) 151 mg/dL (70-99) Laboratory Tests Test 10/29/19 11:40 10/29/19 16:22 10/29/19 20:58 10/30/19 05:31 Glucose (Fingerstick) 137 mg/dL (70-99) 145 mg/dL (70-99) 172 mg/dL (70-99) Hemoglobin 11.7 g/dL (12.0-15.5) Sodium Level 141 mmol/L (136-145) Potassium Level 3.3 mmol/L (3.5-5.1) Chloride Level 104 mmol/L (98-107) Carbon Dioxide Level 22 mmol/L (21-32) Anion Gap 15 (6-14) Blood Urea Nitrogen 44 mg/dL (7-20) Creatinine 5.2 mg/dL (0.6-1.0) Estimated GFR (Cockcroft-Gault) 10.1 Glucose Level 141 mg/dL (70-99) Calcium Level 8.6 mg/dL (8.5-10.1) Phosphorus Level 3.8 mg/dL (2.6-4.7) Magnesium Level 2.0 mg/dL (1.8-2.4) Albumin 2.2 g/dL (3.4-5.0) Test 10/30/19 08:09 Glucose (Fingerstick) 151 mg/dL (70-99) Medications Current Medications Labetalol HCl (Normodyne Iv Push) 20 mg 1X ONCE IVP Last administered on 10/28/19at 22:49; Start 10/28/19 at 22:30; Stop 10/28/19 at 22:31; Status DC Acetaminophen/ Hydrocodone Bitart (Lortab 7.5/325) 1 tab PRN Q4HRS PRN PO PAIN Last administered on 10/29/19at 09:57; Start 10/29/19 at 03:00; Stop 10/29/19 at 17:08; Status DC Hydralazine HCl (Apresoline Inj) 5 mg 1X ONCE IVP Last administered on 10/29/19at 03:09; Start 10/29/19 at 03:00; Stop 10/29/19 at 03:04; Status DC Hydralazine HCl (Apresoline Inj) 5 mg PRN Q6HRS PRN IVP ELEVATED BP, SEE COMMENTS Last administered on 10/29/19at 20:47; Start 10/29/19 at 03:00 Insulin Human Lispro (HumaLOG) 0-7 UNITS QIDACHS SQ Last administered on 10/30/19at 08:40; Start 10/29/19 at 07:30 Dextrose (Dextrose 50%-Water Syringe) 12.5 gm PRN Q15MIN PRN IV SEE COMMENTS; Start 10/29/19 at 07:30 Labetalol HCl (Normodyne Iv Push) 20 mg PRN Q2HR PRN IVP HYPERTENSION Last administered on 10/30/19 07:57; Start 10/29/19 at 07:45 Fluticasone Propionate (Flonase) 2 spray DAILY NS Last administered on 10/30/19 08:32; Start 10/29/19 at 09:00 Hydralazine HCl (Apresoline) 50 mg BID PO Last administered on 10/29/19 09:43; Start 10/29/19 at 09:00; Stop 10/29/19 at 12:55; Status DC Pantoprazole Sodium (Protonix) 40 mg DAILYAC PO Last administered on 10/30/19 07:56; Start 10/29/19 at 08:00 Non-Formulary Medication (Fluticasone/ Umeclidin/ Vilanter (Trelegy Ellipta 100-62.5-25)) 1 each BID IH ; Start 10/29/19 at 09:00; Status UNV Isosorbide Mononitrate (Imdur) 60 mg DAILY PO Last administered on 10/30/19 08:33; Start 10/29/19 at 09:00 Nicotine (Nicoderm Cq 21mg) 1 patch DAILY TD ; Start 10/29/19 at 09:00 Heparin Sodium (Porcine) (Heparin Sodium) 5,000 unit Q12HR SQ Last administered on 10/30/19 08:39; Start 10/29/19 at 09:00 Albuterol Sulfate (Ventolin Neb Soln) 2.5 mg Q6HRS NEB Last administered on 10/30/19 07:18; Start 10/29/19 at 12:00 Budesonide (Pulmicort) 0.5 mg RTBID NEB Last administered on 10/30/19 07:18; Start 10/29/19 at 08:30 Hydralazine HCl (Apresoline) 100 mg TID PO Last administered on 10/30/19 08:33; Start 10/29/19 at 13:00 Magnesium Sulfate 50 ml @ 25 mls/hr PRN DAILY PRN IV for Mag < 1.7 on am labs; Start 10/29/19 at 13:00 Spironolactone (Aldactone) 25 mg BID PO Last administered on 10/30/19 08:33; Start 10/29/19 at 21:00 Potassium Chloride (Klor-Con) 40 meq QID PO Last administered on 10/29/19at 17:30; Start 10/29/19 at 13:00; Stop 10/29/19 at 17:01; Status DC Prochlorperazine Edisylate (Compazine) 10 mg PRN Q6HRS PRN IV HUANG/NAUSEA/VOMITING Last administered on 10/30/19at 04:58; Start 10/29/19 at 17:15 Tramadol HCl (Ultram) 50 mg PRN Q6HRS PRN PO PAIN Last administered on 10/30/19 at 08:32; Start 10/29/19 at 17:15 Psyllium Hydrophilic Mucilloid (Metamucil Fiber Packet) 1 pkt QHS PO Last administered on 10/29/19at 21:57; Start 10/29/19 at 21:00 Polyethylene Glycol (miraLAX PACKET) 17 gm QHS PO Last administered on 10/29/19at 21:57; Start 10/29/19 at 21:00 Diltiazem HCl (Cardizem 24hr Cd) 240 mg DAILY PO Last administered on 10/30/19at 08:32; Start 10/30/19 at 09:00 Potassium Chloride (Klor-Con) 40 meq BIDWMEALS PO Last administered on 10/30/19at 08:34; Start 10/30/19 at 08:30 Active Scripts Active Humalog (Insulin Lispro) 100 Unit/1 Ml Insuln.pen 0 Units SQ TIDWMEALS 30 Days Fluticasone Propionate Nasal Webster (Fluticasone Propionate) 16 Gm Webster.susp 2 Webster NS DAILY 30 Days [Nicotine 21MG] 1 PATCH Patch 1 Patch TD DAILY 30 Days Reported Hydralazine Hcl 50 Mg Tablet 1 Tab PO BID Hydrocodone-Acetamin 7.5-325 (Hydrocodone/Acetaminophen) 1 Each Tablet 1 Each PO PRN Q6HRS PRN Isosorbide Mononitrate Er (Isosorbide Mononitrate) 60 Mg Tab.er.24h 60 Mg PO BID Furosemide 40 Mg Tablet 40 Mg PO DAILY Protonix (Pantoprazole Sodium) 40 Mg Tablet.dr 40 Mg PO DAILYAC Trelegy Ellipta 100-62.5-25 (Fluticasone/Umeclidin/Vilanter) 1 Each Blst.w.dev 1 Each IH BID Albuterol Sulfate Hfa Inhaler (Albuterol Sulfate) 8.5 Gm Hfa.aer.ad 8.5 Gm IH Vitals/I & O Vital Sign - Last 24 Hours 10/29/19 10/29/19 10/29/19 10/29/19 11:00 11:22 12:00 14:15 Temp 98.4 98.4 Pulse 69 Resp 18 B/P (MAP) 143/76 (98) 149/61 Pulse Ox 93 96 96 O2 Delivery Room Air Room Air Room Air 10/29/19 10/29/19 10/29/19 10/29/19 14:18 18:28 19:16 19:18 Temp 98.7 98.7 Pulse 100 Resp 18 B/P (MAP) 149/96 (113) Pulse Ox 97 97 98 98 O2 Delivery Room Air Room Air Room Air Room Air 10/29/19 10/29/19 10/29/19 10/29/19 19:38 20:10 20:47 21:59 Temp 98.8 98.8 Pulse 105 105 105 Resp 21 B/P (MAP) 193/102 (132) 193/102 193/102 Pulse Ox 94 O2 Delivery Room Air Room Air 10/29/19 10/30/19 10/30/19 10/30/19 22:03 00:48 01:16 04:00 Temp 98.0 98.0 Pulse 107 98 86 Resp 20 B/P (MAP) 194/117 (142) 178/101 (126) 203/94 (130) Pulse Ox 96 O2 Delivery Room Air Room Air 10/30/19 10/30/19 10/30/19 10/30/19 04:57 07:00 07:20 07:57 Temp 98.9 98.9 Pulse 86 91 91 Resp 20 B/P (MAP) 203/94 212/104 (140) 212/109 Pulse Ox 100 100 O2 Delivery Room Air Room Air 10/30/19 10/30/19 10/30/19 10/30/19 08:32 08:32 08:33 08:33 Pulse 91 91 91 Resp 18 B/P (MAP) 212/109 212/109 212/109 O2 Delivery Room Air Intake and Output 10/29/19 10/29/19 10/30/19 15:00 23:00 07:00 Intake Total 360 ml 240 ml 200 ml Output Total 800 ml 400 ml Balance 360 ml -560 ml -200 ml Justicifation of Admission Dx: Justifications for Admission: Justification of Admission Dx: No Acute Renal Failure: Serum Cr > 4mg/dL SUSU SWEENEY MD Oct 30, 2019 10:31
[2019-10-30] MEDS: LABETALOL HCL 100 MG TABLET. PO SCH ×2 (10:48→20:43)
--- NOTE | 2019-10-30 16:42 | PDOC ---
CARDIOLOGY PROGRESS NOTE SUBJECTIVE: No acute events overnight. Denies any chest pain. OBJECTIVE: Vital Signs/I&O: Vital Signs Date Time Temp Pulse Resp B/P (MAP) Pulse Ox O2 Delivery O2 Flow Rate FiO2 10/30/19 16:18 16 Room Air 10/30/19 16:18 82 169/88 10/30/19 15:00 98.3 97 98.3 l I & O 10/29/19 10/29/19 10/30/19 15:00 23:00 07:00 Intake Total 360 ml 240 ml 200 ml Output Total 800 ml 400 ml Balance 360 ml -560 ml -200 ml Objective: GEN.: No apparent distress. Alert and oriented. HEENT: Head is normocephalic, atraumatic NECK: Supple. LUNGS: Clear to auscultation. HEART: RRR, S1, S2 present. Peripheral pulses intact ABDOMEN: Soft, nontender. Positive bowel sounds. EXTREMITIES: Without any cyanosis. NEUROLOGIC: Normal speech, normal tone PSYCHIATRIC: Normal affect, normal mood. SKIN: No ulcerations CURRENT MEDICATIONS: Current Medications Medications (Trade) Dose Ordered Sig/Howard Route PRN Reason Start Time Stop Time Status Last Admin Dose Admin Spironolactone (Aldactone) 25 mg BID PO 10/29/19 21:00 10/30/19 08:33 Prochlorperazine Edisylate (Compazine) 10 mg PRN Q6HRS PRN IV HUANG/NAUSEA/VOMITING 10/29/19 17:15 10/30/19 16:18 Tramadol HCl (Ultram) 50 mg PRN Q6HRS PRN PO PAIN 10/29/19 17:15 10/30/19 16:18 Psyllium Hydrophilic Mucilloid (Metamucil Fiber Packet) 1 pkt QHS PO 10/29/19 21:00 10/29/19 21:57 Polyethylene Glycol (miraLAX PACKET) 17 gm QHS PO 10/29/19 21:00 10/29/19 21:57 Diltiazem HCl (Cardizem 24hr Cd) 240 mg DAILY PO 10/30/19 09:00 10/30/19 08:32 Potassium Chloride (Klor-Con) 40 meq BIDWMEALS PO 10/30/19 08:30 10/30/19 08:34 Labetalol HCl (Trandate) 100 mg BID PO 10/30/19 10:30 10/30/19 10:48 DIAGNOSTIC TESTING: Tele reviewed Labs: Laboratory Tests 10/30/19 05:31 Laboratory Tests Test 10/29/19 20:58 10/30/19 05:31 10/30/19 08:09 10/30/19 12:10 Glucose (Fingerstick) 172 mg/dL (70-99) H 151 mg/dL (70-99) H 179 mg/dL (70-99) H Hemoglobin 11.7 g/dL (12.0-15.5) L Sodium Level 141 mmol/L (136-145) Potassium Level 3.3 mmol/L (3.5-5.1) L Chloride Level 104 mmol/L (98-107) Carbon Dioxide Level 22 mmol/L (21-32) Anion Gap 15 (6-14) H Blood Urea Nitrogen 44 mg/dL (7-20) H Creatinine 5.2 mg/dL (0.6-1.0) H Estimated GFR (Cockcroft-Gault) 10.1 Glucose Level 141 mg/dL (70-99) H Calcium Level 8.6 mg/dL (8.5-10.1) Phosphorus Level 3.8 mg/dL (2.6-4.7) Albumin 2.2 g/dL (3.4-5.0) L ASSESSMENT: 1. Hypertensive CKD 2. Morbid obesity 3. Diastolic HF PLAN: 1. Continue same meds. I anticipate she will need HD soon, unlikely to have renal recovery but will defer to Dr. Rinaldi. Supportive care from CV standpoint. Thanks Justicifation of Admission Dx: Justifications for Admission: Justification of Admission Dx: No Acute Renal Failure: Serum Cr > 4mg/dL VINCE FRIAS MD Oct 30, 2019 16:42
--- NOTE | 2019-10-30 20:04 | NUR ---
assume care, assessment complete, c/o constipation ,will medicate as per order, pt up in chair will cont to monitor pt status and safety. pmrn
[2019-10-30] MEDS: PSYLLIUM HUSK (SUGAR FREE) 1 PKT PACKET PO SCH (20:41)
[2019-10-30] MEDS: POLYETHYLENE GLYCOL 3350 17 GM PACKET. PO SCH (20:47)
[2019-10-31 03:30] VITALS: BP 181/94
[2019-10-31 03:50] LABS: BILIRUBIN,URINE NEGATIVE (NEG); CLARITY,URINE CLEAR; COLOR,URINE YELLOW; NITRITE,URINE NEGATIVE (NEG); PH,URINE 6.5 (<5.0-8.0); PROTEIN,URINE >=300 mg/dL (NEG-TRACE); UROBILINOGEN,URINE 0.2 mg/dL (0.2 mg/dL)
[2019-10-31 03:55] LABS: CREATININE,RANDOM URINE 97.4 mg/dL (Not Establ.)
[2019-10-31 03:57] LABS: BARBITURATES NEG (NEG); BENZODIAZEPINES NEG (NEG); CANNABINOIDS NEG (NEG); COCAINE NEG (NEG); METHADONE NEG (NEG); OPIATES POS (NEG); PHENCYCLIDINE NEG (NEG); SQUAMOUS EPITHELIAL CELL,UR MOD /LPF
[2019-10-31 03:58] LABS: BACTERIA,URINE MODERATE /HPF (0-FEW); RBC,URINE RARE /HPF (0-2)
[2019-10-31 04:00] LABS: AMPHETAMINE/METHAMPHETAMINE NEG (NEG)
[2019-10-31] MEDS: traMADol 50 MG TABLET PO PRN ×2 (04:21→11:39)
[2019-10-31] MEDS: hydrALAZINE 20 MG/ML VIAL. IVP PRN (04:24)
[2019-10-31] MEDS: ALBUTEROL SULFATE 2.5 MG/3 ML NEBU. NEB SCH ×4 (04:30→20:01)
--- NOTE | 2019-10-31 06:36 | EKG ---
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
[2019-10-31 06:37] LABS: ALBUMIN 2.6 g/dL (3.4-5.0); CALCIUM 9.2 mg/dL (8.5-10.1); CREATININE 5.2 mg/dL (0.6-1.0); GFR 10.1; MAGNESIUM 2.2 mg/dL (1.8-2.4); PHOSPHORUS 3.7 mg/dL (2.6-4.7); POTASSIUM 4.3 mmol/L (3.5-5.1)
[2019-10-31 07:00] VITALS: BP 167/87
[2019-10-31] MEDS: INSULIN LISPRO 300 UNITS/3 ML VIAL. SQ SCH ×4 (07:30→20:39)
[2019-10-31] MEDS: BUDESONIDE 0.5 MG/2 ML NEBU. NEB SCH ×2 (07:51→20:01)
--- NOTE | 2019-10-31 08:08 | PDOC ---
PROGRESS NOTES Chief Complaint Chief Complaint impression Hypertensive emergency - with JONO, IV labetalol. Cont home meds as well. Consult nephrology and cardiology Elevated troponin - likely from above, will trend. 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 Prn nebs Diabetes-Type II - sliding scale insulin High Cholesterol Hypertension Sleep apnea Gastric ulcers - PPI JONO on Stage 5 CKD Bilateral low-density renal lesions are again seen and incompletely characterized on noncontrast imaging. Couple of these are likely cystic in nature.Further evaluation with nonemergent renal protocol CT or MRI is recommended nonemergent/outpatient setting.Previous imaging studies have shown possible adrenal adenoma Smoker - counseled on cessation, she started smoking again Headache - likely related to HTN, will give compazine PROTEINURIA FEN - ADA diet PPX - heparin FULL CODE Dispo - inpatient iv prn hydralazine 10mg q 4 hrs prn bp support dvt prophylaxis IMMUNOFIXATION URINE AND SERUM covid-19 screen nephrology consult 38 min pt exam, chart review, > 50% of time spent with exam, chart review, pt care coordination History of Present Illness History of Present Illness Ms Persaud is a 64yo F w/ PMHx Asthma, Diabetes-Type II, High Cholesterol, Hypertension, sleep apnea, gastric ulcers, Stage 5 CKD, smoker who p/w headache dizziness and elevated blood pressure. Patient states she saw her medical social consultant today blood pressure was severely elevated at that time. Patient states she was started on new blood pressure medications. She admits to taking all her medi cations but this evening symptoms of headache dizziness continued patient did not feel any better. Patient presents for further evaluation. On arrival patient's blood pressure was greater than 200/100 systolic. Patient was treated with labetalol 20 mg IV push. Patient's blood pressure improved to the 190s systolic, but diastolic remained 119mmHg. Denies any associated chest pain. On further review from previous hospital discharge she was told to restart losartan hydrochlorothiazide, then was instructed by cardiology to start on appropriate medications, Imdur and hydralazine. However she was instructed by someone at her PCP office to go ahead back on the losartan hydrochlorothiazide. Her primary complaint with me today is actually a headache and she is asking for hydrocodone for this. WBC 9.3, Hb 12.9, platelets 258, NA 140, K3.1, BUN 44, CR 5.2, glucose 112, troponin 0.023 EKG with HR [address] elevation no ST depression no acute ND CXR: No acute changes Admitted for further care Despite addition of CCB still with significantly elevated BP and headache as well as abdominal pain. Nausea. Creatinine stable at 5.2 potassium 3.3. Follow nephrology recommendations. Vitals Vitals Vital Signs Date Time Temp Pulse Resp B/P (MAP) Pulse Ox O2 Delivery O2 Flow Rate FiO2 10/31/19 07:51 97 Room Air 10/31/19 05:21 2.0 10/31/19 04:24 86 181/94 10/31/19 03:30 98.0 20 98.0 Physical Exam General: Alert, Oriented X3, Cooperative, mild distress, moderate distress Lungs: Clear Abdomen: Normal bowel sounds, Soft, No tenderness, No hepatosplenomegaly, No m asses Extremities: No clubbing, No cyanosis, No edema, Normal pulses, No tenderness/swelling Skin: No rashes, No breakdown, No significant lesion Labs LABS xam: Ultrasound renal complete Indication: Acute kidney injury Technique: Real-time grayscale and color Doppler images of the kidneys were obtained by the department 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 Comparisons: CT same day FINDINGS: Exam is mildly limited secondary to body habitus. Right kidney measures 11.6 cm in length. No hydronephrosis. There is a hypoattenuating cystic lesion at the lower pole of the right kidney measuring approximately 1.6 cm in diameter likely representing simple cysts. Left kidney measures 10.7 cm in length. No hydronephrosis. Several small hypoattenuating cystic lesions within the left kidney largest measuring 2 cm in diameter representing simple cysts. Other smaller lesion measuring approximately 1.2 cm at the lower pole of the left kidney is not completely evaluated on this study. Bladder is decompressed not well evaluated. IMPRESSION: 1. No hydronephrosis. 2. Renal cysts as described above, one of which is mildly complex. Further evaluation with nonemergent renal protocol CT or MRI is recommended nonemergent/outpatient setting. Electronically signed by: Eugenio Ortiz MD (09/29/2019 4:12 PM) [id number] DICTATED and SIGNED BY: EUGENIO ORTIZ MD DATE: 09/29/19 1612 INDICATION: Reason: hernia / Spl. Instructions: / History: COMPARISON: February 2018 TECHNIQUE: Axial CT images obtained through the abdomen and pelvis without contrast. One or more of the following individualized dose reduction techniques were utilized for this examination: 1. Automated exposure control; 2. Adjustment of the mA and/or kV according to patient size; 3. Use of iterative reconstruction technique. FINDINGS: Small pericardial effusion again seen. Severe calcific atherosclerosis. Liver is prominent in size. Edema throughout the soft tissues. Limited evaluation of the pancreas without contrast. No evidence of splenomegaly. There is some thickening of the bilateral adrenal glands. Redemonstration of an exophytic lesion off the lower pole of the left kidney measuring up to 15 mm. Fullness of the mid pole of the bilateral kidneys is again seen. Nonspecific stranding of the bilateral kidneys. Urinary bladder is partially distended. No hydronephrosis. Low-density lesion of the right kidney measuring 16 mm and may be cystic in nature. Calcifications bilateral renal pelvis could be from nonobstructive stone although a portion could also be from calcific atherosclerosis. Colonic diverticulosis. No dilated loops of bowel to suggest obstruction. The upper abdomen there is fat-containing anterior abdominal wall hernias. There is also some fat containing anterior abdominal wall hernia is seen within the pelvis. Umbilical hernia is seen with loop of bowel extending into it again seen but no evidence of obstruction. Duodenal diverticulum. Degenerative changes of the spine with multilevel central canal and neural foraminal stenosis. Degenerative changes of the bilateral hips. IMPRESSION: * Multiple anterior abdominal wall hernias are identified containing fat with one of them near the umbilicus again containing a portion of the bowel. There is no evidence of associated obstruction. * No hydronephrosis. * Bilateral low-density renal lesions are again seen and incompletely characterized on noncontrast imaging. Couple of these are likely cystic in nature. * Pericardial effusion is again seen. Electronically signed by: Brendon Resendez MD (09/29/2019 5:24 AM) [id number] DICTATED and SIGNED BY: BRENDON RESENDEZ MD DATE: 09/29/19 0524 CHEST AP ONLY INDICATION: Reason: hypertension headache / Spl. Instructions: / History: . COMPARISON STUDY: 09/28/2019. FINDINGS: Lungs: Low lung volume. No pulmonary mass or consolidation. The tracheobronchial tree and hilar structures are normal. Pleura: No pleural effusion or pneumothorax. Heart and Mediastinum: Cardiomegaly. Tortuous atherosclerotic aorta. IMPRESSION: Lung volume. No consolidation. Electronically signed by: Cindy Johnson MD (10/28/2019 11:18 PM) [facility] DICTATED and SIGNED BY: CINDY JOHNSON MD DATE: 10/28/19 7296 Laboratory Tests Test 10/30/19 08:09 10/30/19 12:10 10/30/19 17:11 10/30/19 20:40 Glucose (Fingerstick) 151 mg/dL (70-99) 179 mg/dL (70-99) 138 mg/dL (70-99) 241 mg/dL (70-99) Test 10/31/19 03:30 10/31/19 05:45 10/31/19 07:44 Urine Collection Type Unknown Urine Color Yellow Urine Clarity Clear Urine pH 6.5 (<5.0-8.0) Urine Specific [place] 1.020 (1.000-1.030) Urine Protein >=300 mg/dL (NEG-TRACE) Urine Glucose (UA) 100 mg/dL (NEG) Urine Ketones (Stick) Negative mg/dL (NEG) Urine Blood Negative (NEG) Urine Nitrite Negative (NEG) Urine Bilirubin Negative (NEG) Urine Urobilinogen Dipstick 0.2 mg/dL (0.2 mg/dL) Urine Leukocyte Esterase Negative (NEG) Urine RBC Rare /HPF (0-2) Urine WBC 1-4 /HPF (0-4) Urine Squamous Epithelial Cells Mod /LPF Urine Bacteria Moderate /HPF (0-FEW) Urine Mucus Slight /LPF Urine Random Creatinine 97.4 mg/dL (Not Establ.) Urine Random Total Protein 1018.4 mg/dL (Not Establ.) Urine Protein/Creatinine Ratio 81142 mg/g (0-200) Urine Opiates Screen Pos (NEG) Urine Methadone Screen Neg (NEG) Urine Barbiturates Neg (NEG) Urine Phencyclidine Screen Neg (NEG) Urine Amphetamine/Methamphetamine Neg (NEG) Urine Benzodiazepines Screen Neg (NEG) Urine Cocaine Screen Neg (NEG) Urine Cannabinoids Screen Neg (NEG) Urine Ethyl Alcohol Neg (NEG) Sodium Level 139 mmol/L (136-145) Potassium Level 4.3 mmol/L (3.5-5.1) Chloride Level 103 mmol/L (98-107) Carbon Dioxide Level 21 mmol/L (21-32) Anion Gap 15 (6-14) Blood Urea Nitrogen 45 mg/dL (7-20) Creatinine 5.2 mg/dL (0.6-1.0) Estimated GFR (Cockcroft-Gault) 10.1 Glucose Level 155 mg/dL (70-99) Calcium Level 9.2 mg/dL (8.5-10.1) Phosphorus Level 3.7 mg/dL (2.6-4.7) Magnesium Level 2.2 mg/dL (1.8-2.4) Albumin 2.6 g/dL (3.4-5.0) Glucose (Fingerstick) 145 mg/dL (70-99) Comment Review of Relevant I have reviewed the following items munir (where applicable) has been applied. Labs Laboratory Tests Test 10/29/19 11:40 10/29/19 16:22 10/29/19 20:58 10/30/19 05:31 Glucose (Fingerstick) 137 mg/dL (70-99) 145 mg/dL (70-99) 172 mg/dL (70-99) Hemoglobin 11.7 g/dL (12.0-15.5) Sodium Level 141 mmol/L (136-145) Potassium Level 3.3 mmol/L (3.5-5.1) Chloride Level 104 mmol/L (98-107) Carbon Dioxide Level 22 mmol/L (21-32) Anion Gap 15 (6-14) Blood Urea Nitrogen 44 mg/dL (7-20) Creatinine 5.2 mg/dL (0.6-1.0) Estimated GFR (Cockcroft-Gault) 10.1 Glucose Level 141 mg/dL (70-99) Calcium Level 8.6 mg/dL (8.5-10.1) Phosphorus Level 3.8 mg/dL (2.6-4.7) Magnesium Level 2.0 mg/dL (1.8-2.4) Albumin 2.2 g/dL (3.4-5.0) Test 10/30/19 08:09 10/30/19 12:10 10/30/19 17:11 10/30/19 20:40 Glucose (Fingerstick) 151 mg/dL (70-99) 179 mg/dL (70-99) 138 mg/dL (70-99) 241 mg/dL (70-99) Test 10/31/19 03:30 10/31/19 05:45 10/31/19 07:44 Urine Collection Type Unknown Urine Color Yellow Urine Clarity Clear Urine pH 6.5 (<5.0-8.0) Urine Specific [place] 1.020 (1.000-1.030) Urine Protein >=300 mg/dL (NEG-TRACE) Urine Glucose (UA) 100 mg/dL (NEG) Urine Ketones (Stick) Negative mg/dL (NEG) Urine Blood Negative (NEG) Urine Nitrite Negative (NEG) Urine Bilirubin Negative (NEG) Urine Urobilinogen Dipstick 0.2 mg/dL (0.2 mg/dL) Urine Leukocyte Esterase Negative (NEG) Urine RBC Rare /HPF (0-2) Urine WBC 1-4 /HPF (0-4) Urine Squamous Epithelial Cells Mod /LPF Urine Bacteria Moderate /HPF (0-FEW) Urine Mucus Slight /LPF Urine Random Creatinine 97.4 mg/dL (Not Establ.) Urine Random Total Protein 1018.4 mg/dL (Not Establ.) Urine Protein/Creatinine Ratio 28826 mg/g (0-200) Urine Opiates Screen Pos (NEG) Urine Methadone Screen Neg (NEG) Urine Barbiturates Neg (NEG) Urine Phencyclidine Screen Neg (NEG) Urine Amphetamine/Methamphetamine Neg (NEG) Urine Benzodiazepines Screen Neg (NEG) Urine Cocaine Screen Neg (NEG) Urine Cannabinoids Screen Neg (NEG) Urine Ethyl Alcohol Neg (NEG) Sodium Level 139 mmol/L (136-145) Potassium Level 4.3 mmol/L (3.5-5.1) Chloride Level 103 mmol/L (98-107) Carbon Dioxide Level 21 mmol/L (21-32) Anion Gap 15 (6-14) Blood Urea Nitrogen 45 mg/dL (7-20) Creatinine 5.2 mg/dL (0.6-1.0) Estimated GFR (Cockcroft-Gault) 10.1 Glucose Level 155 mg/dL (70-99) Calcium Level 9.2 mg/dL (8.5-10.1) Phosphorus Level 3.7 mg/dL (2.6-4.7) Magnesium Level 2.2 mg/dL (1.8-2.4) Albumin 2.6 g/dL (3.4-5.0) Glucose (Fingerstick) 145 mg/dL (70-99) Laboratory Tests Test 10/30/19 08:09 10/30/19 12:10 10/30/19 17:11 10/30/19 20:40 Glucose (Fingerstick) 151 mg/dL (70-99) 179 mg/dL (70-99) 138 mg/dL (70-99) 241 mg/dL (70-99) Test 10/31/19 03:30 10/31/19 05:45 10/31/19 07:44 Urine Collection Type Unknown Urine Color Yellow Urine Clarity Clear Urine pH 6.5 (<5.0-8.0) Urine Specific [place] 1.020 (1.000-1.030) Urine Protein >=300 mg/dL (NEG-TRACE) Urine Glucose (UA) 100 mg/dL (NEG) Urine Ketones (Stick) Negative mg/dL (NEG) Urine Blood Negative (NEG) Urine Nitrite Negative (NEG) Urine Bilirubin Negative (NEG) Urine Urobilinogen Dipstick 0.2 mg/dL (0.2 mg/dL) Urine Leukocyte Esterase Negative (NEG) Urine RBC Rare /HPF (0-2) Urine WBC 1-4 /HPF (0-4) Urine Squamous Epithelial Cells Mod /LPF Urine Bacteria Moderate /HPF (0-FEW) Urine Mucus Slight /LPF Urine Random Creatinine 97.4 mg/dL (Not Establ.) Urine Random Total Protein 1018.4 mg/dL (Not Establ.) Urine Protein/Creatinine Ratio 94603 mg/g (0-200) Urine Opiates Screen Pos (NEG) Urine Methadone Screen Neg (NEG) Urine Barbiturates Neg (NEG) Urine Phencyclidine Screen Neg (NEG) Urine Amphetamine/Methamphetamine Neg (NEG) Urine Benzodiazepines Screen Neg (NEG) Urine Cocaine Screen Neg (NEG) Urine Cannabinoids Screen Neg (NEG) Urine Ethyl Alcohol Neg (NEG) Sodium Level 139 mmol/L (136-145) Potassium Level 4.3 mmol/L (3.5-5.1) Chloride Level 103 mmol/L (98-107) Carbon Dioxide Level 21 mmol/L (21-32) Anion Gap 15 (6-14) Blood Urea Nitrogen 45 mg/dL (7-20) Creatinine 5.2 mg/dL (0.6-1.0) Estimated GFR (Cockcroft-Gault) 10.1 Glucose Level 155 mg/dL (70-99) Calcium Level 9.2 mg/dL (8.5-10.1) Phosphorus Level 3.7 mg/dL (2.6-4.7) Magnesium Level 2.2 mg/dL (1.8-2.4) Albumin 2.6 g/dL (3.4-5.0) Glucose (Fingerstick) 145 mg/dL (70-99) Medications Current Medications Labetalol HCl (Normodyne Iv Push) 20 mg 1X ONCE IVP Last administered on 10/28/19at 22:49; Start 10/28/19 at 22:30; Stop 10/28/19 at 22:31; Status DC Acetaminophen/ Hydrocodone Bitart (Lortab 7.5/325) 1 tab PRN Q4HRS PRN PO PAIN Last administered on 10/29/19at 09:57; Start 10/29/19 at 03:00; Stop 10/29/19 at 17:08; Status DC Hydralazine HCl (Apresoline Inj) 5 mg 1X ONCE IVP Last administered on 10/29/19at 03:09; Start 10/29/19 at 03:00; Stop 10/29/19 at 03:04; Status DC Hydralazine HCl (Apresoline Inj) 5 mg PRN Q6HRS PRN IVP ELEVATED BP, SEE COMMENTS Last administered on 10/31/19at 04:24; Start 10/29/19 at 03:00 Insulin Human Lispro (HumaLOG) 0-7 UNITS QIDACHS SQ Last administered on 10/30/19at 20:47; Start 10/29/19 at 07:30 Dextrose (Dextrose 50%-Water Syringe) 12.5 gm PRN Q15MIN PRN IV SEE COMMENTS; Start 10/29/19 at 07:30 Labetalol HCl (Normodyne Iv Push) 20 mg PRN Q2HR PRN IVP HYPERTENSION Last administered on 10/30/19at 07:57; Start 10/29/19 at 07:45 Fluticasone Propionate (Flonase) 2 spray DAILY NS Last administered on 10/30/19at 08:32; Start 10/29/19 at 09:00 Hydralazine HCl (Apresoline) 50 mg BID PO Last administered on 10/29/19at 09:43; Start 10/29/19 at 09:00; Stop 10/29/19 at 12:55; Status DC Pantoprazole Sodium (Protonix) 40 mg DAILYAC PO Last administered on 10/30/19at 07:56; Start 10/29/19 at 08:00 Non-Formulary Medication (Fluticasone/ Umeclidin/ Vilanter (Trelegy Ellipta 100-62.5-25)) 1 each BID IH ; Start 10/29/19 at 09:00; Status UNV Isosorbide Mononitrate (Imdur) 60 mg DAILY PO Last administered on 10/30/19 08:33; Start 10/29/19 at 09:00 Nicotine (Nicoderm Cq 21mg) 1 patch DAILY TD ; Start 10/29/19 at 09:00 Heparin Sodium (Porcine) (Heparin Sodium) 5,000 unit Q12HR SQ Last administered on 10/30/19at 20:45; Start 10/29/19 at 09:00 Albuterol Sulfate (Ventolin Neb Soln) 2.5 mg Q6HRS NEB Last administered on 10/31/19at 07:51; Start 10/29/19 at 12:00 Budesonide (Pulmicort) 0.5 mg RTBID NEB Last administered on 10/31/19at 07:51; Start 10/29/19 at 08:30 Hydralazine HCl (Apresoline) 100 mg TID PO Last administered on 10/30/19at 20:54; Start 10/29/19 at 13:00 Magnesium Sulfate 50 ml @ 25 mls/hr PRN DAILY PRN IV for Mag < 1.7 on am labs; Start 10/29/19 at 13:00 Spironolactone (Aldactone) 25 mg BID PO Last administered on 10/30/19at 20:42; Start 10/29/19 at 21:00 Potassium Chloride (Klor-Con) 40 meq QID PO Last administered on 10/29/19at 17:30; Start 10/29/19 at 13:00; Stop 10/29/19 at 17:01; Status DC Prochlorperazine Edisylate (Compazine) 10 mg PRN Q6HRS PRN IV HUANG/NAUSEA/VOMITING Last administered on 10/30/19 16:18; Start 10/29/19 at 17:15 Tramadol HCl (Ultram) 50 mg PRN Q6HRS PRN PO PAIN Last administered on 10/31/19 04:21; Start 10/29/19 at 17:15 Psyllium Hydrophilic Mucilloid (Metamucil Fiber Packet) 1 pkt QHS PO Last administered on 10/30/19 20:41; Start 10/29/19 at 21:00 Polyethylene Glycol (miraLAX PACKET) 17 gm QHS PO Last administered on 10/30/19 20:47; Start 10/29/19 at 21:00 Diltiazem HCl (Cardizem 24hr Cd) 240 mg DAILY PO Last administered on 10/30/19 08:32; Start 10/30/19 at 09:00 Potassium Chloride (Klor-Con) 40 meq BIDWMEALS PO Last administered on 10/30/19 18:01; Start 10/30/19 at 08:30 Labetalol HCl (Trandate) 100 mg BID PO Last administered on 10/30/19 20:43; Start 10/30/19 at 10:30 Active Scripts Active Humalog (Insulin Lispro) 100 Unit/1 Ml Insuln.pen 0 Units SQ TIDWMEALS 30 Days Fluticasone Propionate Nasal [place] (Fluticasone Propionate) 16 Gm [place].susp 2 [place] NS DAILY 30 Days [Nicotine 21MG] 1 PATCH Patch 1 Patch TD DAILY 30 Days Reported Hydralazine Hcl 50 Mg Tablet 1 Tab PO BID Hydrocodone-Acetamin 7.5-325 (Hydrocodone/Acetaminophen) 1 Each Tablet 1 Each PO PRN Q6HRS PRN Isosorbide Mononitrate Er (Isosorbide Mononitrate) 60 Mg Tab.er.24h 60 Mg PO BID Furosemide 40 Mg Tablet 40 Mg PO DAILY Protonix (Pantoprazole Sodium) 40 Mg Tablet.dr 40 Mg PO DAILYAC Trelegy Ellipta 100-62.5-25 (Fluticasone/Umeclidin/Vilanter) 1 Each Blst.w.dev 1 Each IH BID Albuterol Sulfate Hfa Inhaler (Albuterol Sulfate) 8.5 Gm Hfa.aer.ad 8.5 Gm IH Vitals/I & O Vital Sign - Last 24 Hours 10/30/19 10/30/19 10/30/19 10/30/19 08:32 08:32 08:33 08:33 Pulse 91 91 91 Resp 18 B/P (MAP) 212/109 212/109 212/109 O2 Delivery Room Air 10/30/19 10/30/19 10/30/19 10/30/19 09:32 10:48 11:00 11:52 Temp 99.0 99.0 Pulse 92 92 Resp 20 20 B/P (MAP) 167/99 167/99 (121) Pulse Ox 97 1 O2 Delivery Room Air Room Air Room Air 10/30/19 10/30/19 10/30/19 10/30/19 15:00 16:18 16:18 17:18 Temp 98.3 98.3 Pulse 82 82 Resp 22 16 18 B/P (MAP) 169/88 (115) 169/88 Pulse Ox 97 O2 Delivery Room Air Room Air Room Air 10/30/19 10/30/19 10/30/19 10/30/19 19:25 19:50 20:22 20:24 Temp 97.9 97.9 Pulse 94 Resp 20 B/P (MAP) 192/100 (130) Pulse Ox 96 98 98 O2 Delivery Room Air Room Air Room Air Room Air 10/30/19 10/30/19 10/30/19 10/31/19 20:43 20:54 22:45 03:30 Temp 97.9 98.0 97.9 98.0 Pulse 94 94 72 86 Resp 20 20 B/P (MAP) 192/100 192/100 139/92 (108) 181/94 (123) Pulse Ox 100 96 O2 Delivery Room Air Room Air 10/31/19 10/31/19 10/31/19 10/31/19 04:21 04:24 04:30 05:21 Pulse 86 B/P (MAP) 181/94 Pulse Ox 98 O2 Delivery Nasal Cannula Room Air Nasal Cannula O2 Flow Rate 2.0 2.0 10/31/19 07:51 Pulse Ox 97 O2 Delivery Room Air Intake and Output 10/30/19 10/30/19 10/31/19 15:00 23:00 07:00 Intake Total 500 ml 700 ml 700 ml Output Total 800 ml 500 ml 200 ml Balance -300 ml 200 ml 500 ml Justicifation of Admission Dx: Justifications for Admission: Justification of Admission Dx: No Acute Renal Failure: Serum Cr > 4mg/dL KAROLINE BUSTOS MD Oct 31, 2019 08:08
[2019-10-31] MEDS: ISOSORBIDE MONONITRATE ER 30 MG TAB.ER.24H PO SCH (08:49)
[2019-10-31] MEDS: PANTOPRAZOLE 40 MG TABLET.DR. PO SCH (08:50)
[2019-10-31] MEDS: SPIRONOLACTONE 25 MG TABLET PO SCH ×2 (08:50→20:38)
[2019-10-31] MEDS: POTASSIUM CHLORIDE 20 MEQ TABLET.ER. PO SCH ×2 (08:50→17:00)
[2019-10-31] MEDS: FLUTICASONE 50MCG/NASAL SPRAY 16GM BOTTLE. NS SCH (08:50)
[2019-10-31] MEDS: NICOTINE 21MG PATCH. TD SCH (08:51)
[2019-10-31] MEDS: LABETALOL HCL 100 MG TABLET. PO SCH ×2 (08:51→20:37)
[2019-10-31] MEDS: HEPARIN for SUB-Q USE 5,000 UNIT/ML VIAL. SQ SCH ×2 (08:55→20:38)
--- NOTE | 2019-10-31 10:40 | PDOC ---
RONNELL PEREZ PARKING PATROLLER 10/31/19 1040: CARDIO Progress Notes Date and Time Date of Service 10/31/19 Subjective Subjective: No Chest Pain, No shortness of breath, No Palpitations Vitals Vitals Vital Signs Date Time Temp Pulse Resp B/P (MAP) Pulse Ox O2 Delivery O2 Flow Rate FiO2 10/31/19 08:51 64 167/87 10/31/19 08:00 Room Air 10/31/19 07:51 97 10/31/19 07:00 97.7 18 97.7 10/31/19 05:21 2.0 Weight Weight [ ] Input and Output Intake and Output Intake and Output 10/31/19 07:00 Intake Total 1900 ml Output Total 1500 ml Balance 400 ml Intake Oral 1900 ml Output Urine Total 1500 ml Laboratory Labs Laboratory Tests Test 10/30/19 12:10 10/30/19 17:11 10/30/19 20:40 10/31/19 03:30 Glucose (Fingerstick) 179 mg/dL (70-99) 138 mg/dL (70-99) 241 mg/dL (70-99) Urine Collection Type Unknown Urine Color Yellow Urine Clarity Clear Urine pH 6.5 (<5.0-8.0) Urine Specific [place] 1.020 (1.000-1.030) Urine Protein >=300 mg/dL (NEG-TRACE) Urine Glucose (UA) 100 mg/dL (NEG) Urine Ketones (Stick) Negative mg/dL (NEG) Urine Blood Negative (NEG) Urine Nitrite Negative (NEG) Urine Bilirubin Negative (NEG) Urine Urobilinogen Dipstick 0.2 mg/dL (0.2 mg/dL) Urine Leukocyte Esterase Negative (NEG) Urine RBC Rare /HPF (0-2) Urine WBC 1-4 /HPF (0-4) Urine Squamous Epithelial Cells Mod /LPF Urine Bacteria Moderate /HPF (0-FEW) Urine Mucus Slight /LPF Urine Random Creatinine 97.4 mg/dL (Not Establ.) Urine Random Total Protein 1018.4 mg/dL (Not Establ.) Urine Protein/Creatinine Ratio 20735 mg/g (0-200) Urine Opiates Screen Pos (NEG) Urine Methadone Screen Neg (NEG) Urine Barbiturates Neg (NEG) Urine Phencyclidine Screen Neg (NEG) Urine Amphetamine/Methamphetamine Neg (NEG) Urine Benzodiazepines Screen Neg (NEG) Urine Cocaine Screen Neg (NEG) Urine Cannabinoids Screen Neg (NEG) Urine Ethyl Alcohol Neg (NEG) Test 10/31/19 05:45 10/31/19 07:44 Sodium Level 139 mmol/L (136-145) Potassium Level 4.3 mmol/L (3.5-5.1) Chloride Level 103 mmol/L (98-107) Carbon Dioxide Level 21 mmol/L (21-32) Anion Gap 15 (6-14) Blood Urea Nitrogen 45 mg/dL (7-20) Creatinine 5.2 mg/dL (0.6-1.0) Estimated GFR (Cockcroft-Gault) 10.1 Glucose Level 155 mg/dL (70-99) Calcium Level 9.2 mg/dL (8.5-10.1) Phosphorus Level 3.7 mg/dL (2.6-4.7) Magnesium Level 2.2 mg/dL (1.8-2.4) Albumin 2.6 g/dL (3.4-5.0) Glucose (Fingerstick) 145 mg/dL (70-99) Physical Exam HEENT: Neck Supple W Full Motion Chest: Symmetric LUNGS: Clear to Auscultation Heart: RRR Abdomen: Soft N/T, Other (obese) Extremities: No Calf Tenderness Neurology: alert, oriented, follow commands Assessment Assessment 1. Hypertensive urgency; renal duplex 03/07 without evidence of stenosis. Remains mildly elevated 2. CKD, HD being considered 3. Chronic diastolic CHF; appears compensated. Recent echo with preserved LV systolic function 4. Dyslipidemia; LDL 125. Not on statin 5. Diabetes, II 6. Obesity 7. H/o poor compliance Recommendations Increase Labetalol No ACEi with renal disease Initiation of HD as per nephrology Supportive care Justicifation of Admission Dx: Justifications for Admission: Justification of Admission Dx: No Acute Renal Failure: Serum Cr > 4mg/dL VINCE FRIAS MD 11/01/19 0902: CARDIO Progress Notes Plan Plan Late entry for 10/31/2019 Patient seen and examined. Agree with above nurse practitioner note. Agree with initiation of hemodialysis as I think this is the primary source of her problem. RONNELL PEREZ REBECA Oct 31, 2019 10:40 VINCE FRIAS MD Nov 01, 2019 09:02
[2019-10-31 11:00] VITALS: BP 129/77
--- NOTE | 2019-10-31 11:13 | PDOC ---
SUBJECTIVE ROS No N/V. No SOB OBJECTIVE Vital Signs Vital Signs Date Time Temp Pulse Resp B/P (MAP) Pulse Ox O2 Delivery O2 Flow Rate FiO2 10/31/19 08:51 64 167/87 10/31/19 08:00 Room Air 10/31/19 07:51 97 10/31/19 07:00 97.7 18 97.7 10/31/19 05:21 2.0 I & 0 Intake and Output 10/31/19 07:00 Intake Total 1900 ml Output Total 1500 ml Balance 400 ml Intake Oral 1900 ml Output Urine Total 1500 ml PHYSICAL EXAM Physical Exam GEN: NAD HEEN: OM moist NECK: supple CVS: S1S2, RESP: decrease at bases, No Acc. Muscle Use GI: BS + ve, Obese : No CVA tenderness, No Suprapubic Tenderness, No sheikh Neuro No ASterxis DIAGNOSIS/ASSESSMENT Assessment & Plan JONO vs Progression of CKD Cr elevated since September 21.3-5.2 Pt has been Non complaint with appts, she has not been keeping appts after multiple calls and lomg discussion last time during her hospitalization She also had an appt at which she didnt keep , she was seen in our office 1- 2 times-approx has been a year (Leena Nuñez's Pt, seen by [employer]ER ) Currently Asymptomatic but due to chronic Non compliance and low eGFR m, recommned initiating HD Pt agreeable , will get Permacath and start HD in am , SW consult for OP chair time Proteinuria- nephrotic range, was advised Renal Bx, Pt didnt do it CKD stage 4 - baseline Cr 2.7-3.0 Non Compliant with appts Renal Cyst- reported on US Several small hypoattenuating cystic lesions within the left kidney largest measuring 2 cm in diameter representing simple cysts. Other smaller lesion measuring approximately 1.2 cm at the lower pole of the left kidney is not completely evaluated on this study. Further evaluation with nonemergent renal protocol CT or MRI is recommended nonemergent/outpatient setting. DM II- HTN- antihypertensives Dw Pt and RN COMMENT/RELEVANT DATA Meds Current Medications Medications (Trade) Dose Ordered Sig/Howard Start Time Stop Time Status Last Admin Dose Admin Acetaminophen/ Hydrocodone Bitart (Lortab 7.5/325) 1 tab PRN Q4HRS PRN 10/29/19 03:00 10/29/19 17:08 DC 10/29/19 09:57 1 TAB Albuterol Sulfate (Ventolin Neb Soln) 2.5 mg Q6HRS 10/29/19 12:00 10/31/19 07:51 2.5 MG Budesonide (Pulmicort) 0.5 mg RTBID 10/29/19 08:30 10/31/19 07:51 0.5 MG Dextrose (Dextrose 50%-Water Syringe) 12.5 gm PRN Q15MIN PRN 10/29/19 07:30 Diltiazem HCl (Cardizem 24hr Cd) 240 mg DAILY 10/30/19 09:00 10/31/19 08:51 240 MG Fluticasone Propionate (Flonase) 2 spray DAILY 10/29/19 09:00 10/30/19 08:32 2 SPRAY Heparin Sodium (Porcine) (Heparin Sodium) 5,000 unit Q12HR 10/29/19 09:00 10/31/19 08:55 5,000 UNIT Hydralazine HCl (Apresoline Inj) 5 mg PRN Q6HRS PRN 10/29/19 03:00 10/31/19 04:24 5 MG Hydralazine HCl (Apresoline) 100 mg TID 10/29/19 13:00 10/31/19 08:49 100 MG Insulin Human Lispro (HumaLOG) 0-7 UNITS QIDACHS 10/29/19 07:30 10/30/19 20:47 241 UNITS Isosorbide Mononitrate (Imdur) 60 mg DAILY 10/29/19 09:00 10/31/19 08:49 60 MG Labetalol HCl (Normodyne Iv Push) 20 mg PRN Q2HR PRN 10/29/19 07:45 10/30/19 07:57 20 MG Labetalol HCl (Trandate) 100 mg BID 10/30/19 10:30 10/31/19 08:51 100 MG Magnesium Sulfate 50 ml @ 25 mls/hr PRN DAILY PRN 10/29/19 13:00 Nicotine (Nicoderm Cq 21mg) 1 patch DAILY 10/29/19 09:00 Non-Formulary Medication (Fluticasone/ Umeclidin/ Vilanter (Trelegy Ellipta 100-62.5-25)) 1 each BID 10/29/19 09:00 UNV Pantoprazole Sodium (Protonix) 40 mg DAILYAC 10/29/19 08:00 10/31/19 08:50 40 MG Polyethylene Glycol (miraLAX PACKET) 17 gm QHS 10/29/19 21:00 10/30/19 20:47 17 GM Potassium Chloride (Klor-Con) 40 meq BIDWMEALS 10/30/19 08:30 10/31/19 08:50 40 MEQ Prochlorperazine Edisylate (Compazine) 10 mg PRN Q6HRS PRN 10/29/19 17:15 10/30/19 16:18 10 MG Psyllium Hydrophilic Mucilloid (Metamucil Fiber Packet) 1 pkt QHS 10/29/19 21:00 10/30/19 20:41 1 PKT Spironolactone (Aldactone) 25 mg BID 10/29/19 21:00 10/31/19 08:50 25 MG Tramadol HCl (Ultram) 50 mg PRN Q6HRS PRN 10/29/19 17:15 10/31/19 04:21 50 MG Lab Laboratory Tests Test 10/30/19 12:10 10/30/19 17:11 10/30/19 20:40 10/31/19 03:30 Glucose (Fingerstick) 179 mg/dL (70-99) 138 mg/dL (70-99) 241 mg/dL (70-99) Urine Collection Type Unknown Urine Color Yellow Urine Clarity Clear Urine pH 6.5 (<5.0-8.0) Urine Specific [place] 1.020 (1.000-1.030) Urine Protein >=300 mg/dL (NEG-TRACE) Urine Glucose (UA) 100 mg/dL (NEG) Urine Ketones (Stick) Negative mg/dL (NEG) Urine Blood Negative (NEG) Urine Nitrite Negative (NEG) Urine Bilirubin Negative (NEG) Urine Urobilinogen Dipstick 0.2 mg/dL (0.2 mg/dL) Urine Leukocyte Esterase Negative (NEG) Urine RBC Rare /HPF (0-2) Urine WBC 1-4 /HPF (0-4) Urine Squamous Epithelial Cells Mod /LPF Urine Bacteria Moderate /HPF (0-FEW) Urine Mucus Slight /LPF Urine Random Creatinine 97.4 mg/dL (Not Establ.) Urine Random Total Protein 1018.4 mg/dL (Not Establ.) Urine Protein/Creatinine Ratio 83936 mg/g (0-200) Urine Opiates Screen Pos (NEG) Urine Methadone Screen Neg (NEG) Urine Barbiturates Neg (NEG) Urine Phencyclidine Screen Neg (NEG) Urine Amphetamine/Methamphetamine Neg (NEG) Urine Benzodiazepines Screen Neg (NEG) Urine Cocaine Screen Neg (NEG) Urine Cannabinoids Screen Neg (NEG) Urine Ethyl Alcohol Neg (NEG) Test 10/31/19 05:45 10/31/19 07:44 Sodium Level 139 mmol/L (136-145) Potassium Level 4.3 mmol/L (3.5-5.1) Chloride Level 103 mmol/L (98-107) Carbon Dioxide Level 21 mmol/L (21-32) Anion Gap 15 (6-14) Blood Urea Nitrogen 45 mg/dL (7-20) Creatinine 5.2 mg/dL (0.6-1.0) Estimated GFR (Cockcroft-Gault) 10.1 Glucose Level 155 mg/dL (70-99) Calcium Level 9.2 mg/dL (8.5-10.1) Phosphorus Level 3.7 mg/dL (2.6-4.7) Magnesium Level 2.2 mg/dL (1.8-2.4) Albumin 2.6 g/dL (3.4-5.0) Glucose (Fingerstick) 145 mg/dL (70-99) Results All relevant outside records, renal labs, imaging studies, telemetry/EKG's were reviewed. Justicifation of Admission Dx: Justifications for Admission: Justification of Admission Dx: No Acute Renal Failure: Serum Cr > 4mg/dL KAE VELASQUEZ MD Oct 31, 2019 11:13
--- NOTE | 2019-10-31 13:03 | NUR ---
SS following for discharge planning. SS reviewed pt chart and discussed with pt RN. Pt is from home and is currently on room air. Per RN, pt will need outpatient HD set up. Pt getting tunneled cath placed today. SS requested orders for serology labs and COVID19 test. SS will continue to follow for discharge planning.
[2019-10-31 15:00] VITALS: BP 137/62
--- NOTE | 2019-10-31 17:44 | PDOC ---
Provider Note Provider Note Vascular Surgery Consult dictated 64 year old female with chronic renal failure now requiring hemodialysis. She will have a permacath with IR tomorrow. Vein mapping ordered. She is right handed. Will plan left arm fistula vs shunt based on vein mapping results. Justicifation of Admission Dx: Justifications for Admission: Justification of Admission Dx: No Acute Renal Failure: Serum Cr > 4mg/dL TIMOTHY MOCK MD Oct 31, 2019 17:44
[2019-10-31 17:52] LABS: PROTHROMBIN TIME PATIENT 12.8 SEC (11.7-14.0)
--- NOTE | 2019-10-31 18:32 | RAD ---
INDICATION: Pre-operative evaluation. COMPARISON: None. TECHNIQUE: Color, grayscale and spectral doppler ultrasound images obtained of the bilateral basilic and cephalic veins FINDINGS: Measurements from proximal to distal are in mm: Right: Cephalic: 3.1, 2.8, 3.6, 1.8, 0.7 Basilic: Calf: 4.0, 4.1, 3.0, 2.1, 1.2, 1.4 Left: Cephalic 4.0, 4.3, 4.9, 3.4, 3.2, 3.0 Basilic 1.8, 1.6, 1.4, not visualized in the forearm IMPRESSION: 1. Basilic and cephalic measurements as above. Electronically signed by: Jens Troy MD (10/31/2019 6:29 PM) [id number]
[2019-10-31 19:45] VITALS: BP 188/96
--- NOTE | 2019-10-31 19:54 | CONS ---
DATE OF CONSULTATION: 10/31/2019 CHIEF COMPLAINT: Need for dialysis access. HISTORY OF PRESENT ILLNESS: The patient is a 64-year-old female with a history of chronic renal insufficiency, which has progressed and is now requiring hemodialysis. She has been hospitalized and Nephrology has evaluated. Plans for Interventional Radiology to place a Perm-A-Cath and start hemodialysis have been made for tomorrow. She has never been on hemodialysis in the past. She has had no dialysis access procedures in her arms. She is right arm dominant, prefers the access in her left arm if possible. She reports some chronic weakness in her left arm, but it is functional. She reports no history of pacemakers or defibrillators. She reports no pain in her arms or hands. She currently has an IV in her right hand. REVIEW OF SYSTEMS: A 10-point review of systems was performed, which is otherwise negative besides what is mentioned in history of present illness. PAST MEDICAL HISTORY: Include hypertension, hyperlipidemia, COPD, migraines, end-stage renal disease, now requiring hemodialysis, peptic ulcer disease, depression, and diabetes mellitus. PAST SURGICAL HISTORY: Includes hernia repair, colon resection, and . SOCIAL HISTORY: She smokes 1 pack of cigarettes per day, no alcohol use. FAMILY HISTORY: Has no significant history. ALLERGIES: No known drug allergies. MEDICATIONS: Please see her full MAR. PHYSICAL EXAMINATION: GENERAL: The patient is awake and alert. Currently, she is in no apparent distress. VITAL SIGNS: She is afebrile. Her vital signs are stable. NECK: Supple with no carotid bruits. HEART: Regular rate and rhythm without murmurs. LUNGS: Have bilateral breath sounds to auscultation. ABDOMEN: Soft, nondistended and nontender. She does have obesity. EXTREMITIES: Her bilateral upper extremities are warm with no swelling, her fingers are warm and pink and she has good strength in her hands. Bilateral lower extremities are warm. No swelling in her feet, no tissue breakdown in her feet. On vascular examination, she has palpable bilateral brachial and radial pulses in her arms, palpable dorsalis pedis pulses in her feet. NEUROLOGIC: She is awake and alert, and oriented x 3, moving all 4 extremities with good strength, normal speech, no gross neurologic deficits. IMPRESSION: The patient is a 64-year-old female with end-stage renal disease that has progressed to now requiring hemodialysis. She will have a Perm-A-Cath placed by Interventional Radiology tomorrow to start hemodialysis. She is right arm dominant and has no pacemakers or defibrillators. We will plan a left arm access with fistula versus a shunt. I have ordered vein mapping and we will evaluate this to determine exactly what access we place. I will order protection for her left arm for no more IVs or blood pressures from this arm. TIMOTHY MOCK MD DR: JOAN/kat JOB#: [id number] / [id number]
[2019-10-31] MEDS: POLYETHYLENE GLYCOL 3350 17 GM PACKET. PO SCH (20:36)
[2019-10-31] MEDS: PSYLLIUM HUSK (SUGAR FREE) 1 PKT PACKET PO SCH (20:36)
[2019-10-31 23:00] VITALS: BP 135/68
[2019-11-01] VITALS (7 sets, daily range): BP systolic 101–193; BP diastolic 59–97
[2019-11-01] MEDS: ALBUTEROL SULFATE 2.5 MG/3 ML NEBU. NEB SCH ×5 (00:26→23:44)
[2019-11-01] MEDS: INSULIN LISPRO 300 UNITS/3 ML VIAL. SQ SCH ×4 (07:30→21:00)
[2019-11-01] MEDS: BUDESONIDE 0.5 MG/2 ML NEBU. NEB SCH ×2 (07:48→19:31)
[2019-11-01] MEDS: POTASSIUM CHLORIDE 20 MEQ TABLET.ER. PO SCH ×2 (08:00→18:20)
[2019-11-01 08:27] LABS: ALBUMIN 2.6 g/dL (3.4-5.0); CALCIUM 8.6 mg/dL (8.5-10.1); CREATININE 5.5 mg/dL (0.6-1.0); GFR 9.5; MAGNESIUM 2.2 mg/dL (1.8-2.4); POTASSIUM 5.3 mmol/L (3.5-5.1)
[2019-11-01 08:42] LABS: BASO # 0.1 x10^3/uL (0.0-0.2); BASO % 1 % (0-3); EOS # 0.2 x10^3/uL (0.0-0.7); EOS % 2 % (0-3); HEMOGLOBIN 11.7 g/dL (12.0-15.5); LYMPH # 1.9 x10^3/uL (1.0-4.8); LYMPH % 20 % (24-48); MEAN CORPUSCULAR HEMOGLOBIN 25 pg (25-35); MEAN CORPUSCULAR HGB CONC 32 g/dL (31-37); MEAN CORPUSCULAR VOLUME 79 fL (79-100); MONO # 0.6 x10^3/uL (0.0-1.1); MONO % 7 % (0-9); NEUT # 6.6 x10^3/uL (1.8-7.7); NEUT % 70 % (31-73); PLATELET COUNT 252 x10^3/uL (140-400); RED BLOOD COUNT 4.68 x10^6/uL (3.50-5.40); RED CELL DISTRIBUTION WIDTH 16.3 % (11.5-14.5); WHITE BLOOD COUNT 9.5 x10^3/uL (4.0-11.0)
[2019-11-01] MEDS: LABETALOL HCL 100 MG TABLET. PO SCH ×2 (09:00→21:11)
[2019-11-01] MEDS: SPIRONOLACTONE 25 MG TABLET PO SCH ×2 (09:00→21:11)
[2019-11-01] MEDS: HEPARIN for SUB-Q USE 5,000 UNIT/ML VIAL. SQ SCH ×2 (09:00→21:19)
--- NOTE | 2019-11-01 09:36 | PDOC ---
SUBJECTIVE ROS No N/V. No SOB OBJECTIVE Vital Signs Vital Signs Date Time Temp Pulse Resp B/P (MAP) Pulse Ox O2 Delivery O2 Flow Rate FiO2 11/01/19 07:00 98.4 81 18 188/79 (115) 94 Room Air 98.4 11/01/19 00:27 2.0 I & 0 Intake and Output 11/01/19 07:00 Intake Total 1570 ml Output Total 1500 ml Balance 70 ml Intake Oral 1570 ml Output Urine Total 1500 ml PHYSICAL EXAM Physical Exam GEN: NAD HEEN: OM moist NECK: supple CVS: S1S2, RESP: decrease at bases, No Acc. Muscle Use GI: BS + ve, Obese : No CVA tenderness, No Suprapubic Tenderness, Neuro No ASterxis DIAGNOSIS/ASSESSMENT Assessment & Plan New Onset ESRD - Pt has been Non complaint with appts and recommendations Will initiate HD today, Discussed treatment plan with Amarilis , scheduled for Permcath later today Per Vascular - left radiocephalic AV fistula on an outpatient basis. We will contact her once we get surgery set up for her and give her all of her information and instruction. This can likely occur next week SW for OP chair time HyperKalemia- mild , HD today Proteinuria- nephrotic range, was advised Renal Bx, Pt didnt do it CKD stage 4 - baseline Cr 2.7-3.0, under DR. mathew's care, Non compliant Renal Cyst- reported on US Several small hypoattenuating cystic lesions within the left kidney largest measuring 2 cm in diameter representing simple cysts. Other smaller lesion measuring approximately 1.2 cm at the lower pole of the left kidney is not completely evaluated on this study. Further evaluation with nonemergent renal protocol CT or MRI is recommended nonemergent/outpatient setting. DM II- HTN- antihypertensives Dw Pt and RN COMMENT/RELEVANT DATA Meds Current Medications Medications (Trade) Dose Ordered Sig/Howard Start Time Stop Time Status Last Admin Dose Admin Acetaminophen/ Hydrocodone Bitart (Lortab 7.5/325) 1 tab PRN Q4HRS PRN 10/29/19 03:00 10/29/19 17:08 DC 10/29/19 09:57 1 TAB Albuterol Sulfate (Ventolin Neb Soln) 2.5 mg Q6HRS 10/29/19 12:00 11/01/19 00:26 2.5 MG Aspirin (Ecotrin) 81 mg DAILYWBKFT 11/02/19 08:00 Budesonide (Pulmicort) 0.5 mg RTBID 10/29/19 08:30 10/31/19 20:01 0.5 MG Dextrose (Dextrose 50%-Water Syringe) 12.5 gm PRN Q15MIN PRN 10/29/19 07:30 Diltiazem HCl (Cardizem 24hr Cd) 240 mg DAILY 10/30/19 09:00 10/31/19 08:51 240 MG Fluticasone Propionate (Flonase) 2 spray DAILY 10/29/19 09:00 10/30/19 08:32 2 SPRAY Heparin Sodium (Porcine) (Heparin Sodium) 5,000 unit Q12HR 10/29/19 09:00 10/31/19 08:55 5,000 UNIT Hydralazine HCl (Apresoline Inj) 5 mg PRN Q6HRS PRN 10/29/19 03:00 10/31/19 04:24 5 MG Hydralazine HCl (Apresoline) 100 mg TID 10/29/19 13:00 10/31/19 20:38 100 MG Insulin Human Lispro (HumaLOG) 0-7 UNITS QIDACHS 10/29/19 07:30 10/31/19 12:36 4 UNITS Isosorbide Mononitrate (Imdur) 60 mg DAILY 10/29/19 09:00 10/31/19 08:49 60 MG Labetalol HCl (Normodyne Iv Push) 20 mg PRN Q2HR PRN 10/29/19 07:45 10/30/19 07:57 20 MG Labetalol HCl (Trandate) 200 mg BID 10/31/19 21:00 10/31/19 20:37 200 MG Magnesium Sulfate 50 ml @ 25 mls/hr PRN DAILY PRN 10/29/19 13:00 Nicotine (Nicoderm Cq 21mg) 1 patch DAILY 10/29/19 09:00 Non-Formulary Medication (Fluticasone/ Umeclidin/ Vilanter (Trelegy Ellipta 100-62.5-25)) 1 each BID 10/29/19 09:00 UNV Pantoprazole Sodium (Protonix) 40 mg DAILYAC 10/29/19 08:00 10/31/19 08:50 40 MG Polyethylene Glycol (miraLAX PACKET) 17 gm QHS 10/29/19 21:00 10/31/19 20:36 17 GM Potassium Chloride (Klor-Con) 40 meq BIDWMEALS 10/30/19 08:30 10/31/19 08:50 40 MEQ Prochlorperazine Edisylate (Compazine) 10 mg PRN Q6HRS PRN 10/29/19 17:15 10/30/19 16:18 10 MG Psyllium Hydrophilic Mucilloid (Metamucil Fiber Packet) 1 pkt QHS 10/29/19 21:00 10/31/19 20:36 1 PKT Spironolactone (Aldactone) 25 mg BID 10/29/19 21:00 10/31/19 20:38 25 MG Tramadol HCl (Ultram) 50 mg PRN Q6HRS PRN 10/29/19 17:15 10/31/19 11:39 50 MG Lab Laboratory Tests Test 10/31/19 11:47 10/31/19 17:10 10/31/19 17:30 10/31/19 20:35 Glucose (Fingerstick) 207 mg/dL (70-99) 141 mg/dL (70-99) 180 mg/dL (70-99) Prothrombin Time 12.8 SEC (11.7-14.0) Prothromb Time International Ratio 1.0 (0.8-1.1) Activated Partial Thromboplast Time 31 SEC (24-38) Test 11/01/19 04:30 White Blood Count 9.5 x10^3/uL (4.0-11.0) Red Blood Count 4.68 x10^6/uL (3.50-5.40) Hemoglobin 11.7 g/dL (12.0-15.5) Hematocrit 37.0 % (36.0-47.0) Mean Corpuscular Volume 79 fL (79-100) Mean Corpuscular Hemoglobin 25 pg (25-35) Mean Corpuscular Hemoglobin Concent 32 g/dL (31-37) Red Cell Distribution Width 16.3 % (11.5-14.5) Platelet Count 252 x10^3/uL (140-400) Neutrophils (%) (Auto) 70 % (31-73) Lymphocytes (%) (Auto) 20 % (24-48) Monocytes (%) (Auto) 7 % (0-9) Eosinophils (%) (Auto) 2 % (0-3) Basophils (%) (Auto) 1 % (0-3) Neutrophils # (Auto) 6.6 x10^3/uL (1.8-7.7) Lymphocytes # (Auto) 1.9 x10^3/uL (1.0-4.8) Monocytes # (Auto) 0.6 x10^3/uL (0.0-1.1) Eosinophils # (Auto) 0.2 x10^3/uL (0.0-0.7) Basophils # (Auto) 0.1 x10^3/uL (0.0-0.2) Sodium Level 139 mmol/L (136-145) Potassium Level 5.3 mmol/L (3.5-5.1) Chloride Level 105 mmol/L (98-107) Carbon Dioxide Level 22 mmol/L (21-32) Anion Gap 12 (6-14) Blood Urea Nitrogen 44 mg/dL (7-20) Creatinine 5.5 mg/dL (0.6-1.0) Estimated GFR (Cockcroft-Gault) 9.5 Glucose Level 137 mg/dL (70-99) Calcium Level 8.6 mg/dL (8.5-10.1) Phosphorus Level 4.0 mg/dL (2.6-4.7) Magnesium Level 2.2 mg/dL (1.8-2.4) Albumin 2.6 g/dL (3.4-5.0) Results All relevant outside records, renal labs, imaging studies, telemetry/EKG's were reviewed. Justicifation of Admission Dx: Justifications for Admission: Justification of Admission Dx: No Acute Renal Failure: Serum Cr > 4mg/dL KAE VELASQUEZ MD Nov 01, 2019 09:36
--- NOTE | 2019-11-01 10:09 | PDOC ---
PROGRESS NOTES Chief Complaint Chief Complaint impression Hypertensive emergency - with JONO, IV labetalol. Cont home meds as well. Consult nephrology and cardiology Elevated troponin - likely from above, will trend. 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 Prn nebs Diabetes-Type II - sliding scale insulin High Cholesterol Hypertension Sleep apnea Gastric ulcers - PPI JONO on Stage 5 CKD Bilateral low-density renal lesions are again seen and incompletely characterized on noncontrast imaging. Couple of these are likely cystic in nature.Further evaluation with nonemergent renal protocol CT or MRI is recommended nonemergent/outpatient setting.Previous imaging studies have shown possible adrenal adenoma Smoker - counseled on cessation, she started smoking again Headache - likely related to HTN, will give compazine PROTEINURIA FEN - ADA diet PPX - heparin FULL CODE Dispo - inpatient iv prn hydralazine 10mg q 4 hrs prn bp support dvt prophylaxis IMMUNOFIXATION URINE AND SERUM covid-19 screen nephrology consult PermCath placement 10/31 in interventional radiology. left radiocephalic AV fistula on an outpatient basis. 39 min pt exam, chart review, > 50% of time spent with exam, chart review, pt care coordination History of Present Illness History of Present Illness Ms Persaud is a 64yo F w/ PMHx Asthma, Diabetes-Type II, High Cholesterol, Hypertension, sleep apnea, gastric ulcers, Stage 5 CKD, smoker who p/w headache dizziness and elevated blood pressure. 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 Patient states she was started on new blood pressure medications. She admits to taking all her medications but this evening symptoms of headache dizziness continued patient did not feel any better. Patient presents for further evaluation. On arrival patient's blood pressure was greater than 200/100 systolic. Patient was treated with labetalol 20 mg IV push. Patient's blood pressure improved to the 190s systolic, but diastolic remained 119mmHg. Denies any associated chest pain. On further review from previous hospital discharge she was told to restart losartan hydrochlorothiazide, then was instructed by cardiology to start on appropriate medications, Imdur and hydralazine. However she was instructed by someone at her PCP office to go ahead back on the losartan hydrochlorothiazide. Her primary complaint with me today is actually a headache and she is asking for hydrocodone for this. WBC 9.3, Hb 12.9, platelets 258, NA 140, K3.1, BUN 44, CR 5.2, glucose 112, troponin 0.023 EKG with HR [address] elevation no ST depression no acute [place] CXR: No acute changes Admitted for further care Despite addition of CCB still with significantly elevated BP and headache as well as abdominal pain. Nausea. Creatinine stable at 5.2 potassium 3.3. Follow nephrology recommendations. Vitals Vitals Vital Signs Date Time Temp Pulse Resp B/P (MAP) Pulse Ox O2 Delivery O2 Flow Rate FiO2 11/01/19 07:44 Nasal Cannula 2.0 11/01/19 07:00 98.4 81 18 188/79 (115) 94 98.4 Physical Exam General: Alert, Oriented X3, Cooperative, mild distress, moderate distress Lungs: Clear Abdomen: Normal bowel sounds, Soft, No tenderness, No hepatosplenomegaly, No masses Extremities: No clubbing, No cyanosis, No edema, Normal pulses, No tenderness/swelling Skin: No rashes, No breakdown, No significant lesion Labs LABS Laboratory Tests Test 10/31/19 11:47 10/31/19 17:10 10/31/19 17:30 10/31/19 20:35 Glucose (Fingerstick) 207 mg/dL (70-99) 141 mg/dL (70-99) 180 mg/dL (70-99) Prothrombin Time 12.8 SEC (11.7-14.0) Prothromb Time International Ratio 1.0 (0.8-1.1) Activated Partial Thromboplast Time 31 SEC (24-38) Test 11/01/19 04:30 White Blood Count 9.5 x10^3/uL (4.0-11.0) Red Blood Count 4.68 x10^6/uL (3.50-5.40) Hemoglobin 11.7 g/dL (12.0-15.5) Hematocrit 37.0 % (36.0-47.0) Mean Corpuscular Volume 79 fL (79-100) Mean Corpuscular Hemoglobin 25 pg (25-35) Mean Corpuscular Hemoglobin Concent 32 g/dL (31-37) Red Cell Distribution Width 16.3 % (11.5-14.5) Platelet Count 252 x10^3/uL (140-400) Neutrophils (%) (Auto) 70 % (31-73) Lymphocytes (%) (Auto) 20 % (24-48) Monocytes (%) (Auto) 7 % (0-9) Eosinophils (%) (Auto) 2 % (0-3) Basophils (%) (Auto) 1 % (0-3) Neutrophils # (Auto) 6.6 x10^3/uL (1.8-7.7) Lymphocytes # (Auto) 1.9 x10^3/uL (1.0-4.8) Monocytes # (Auto) 0.6 x10^3/uL (0.0-1.1) Eosinophils # (Auto) 0.2 x10^3/uL (0.0-0.7) Basophils # (Auto) 0.1 x10^3/uL (0.0-0.2) Sodium Level 139 mmol/L (136-145) Potassium Level 5.3 mmol/L (3.5-5.1) Chloride Level 105 mmol/L (98-107) Carbon Dioxide Level 22 mmol/L (21-32) Anion Gap 12 (6-14) Blood Urea Nitrogen 44 mg/dL (7-20) Creatinine 5.5 mg/dL (0.6-1.0) Estimated GFR (Cockcroft-Gault) 9.5 Glucose Level 137 mg/dL (70-99) Calcium Level 8.6 mg/dL (8.5-10.1) Phosphorus Level 4.0 mg/dL (2.6-4.7) Magnesium Level 2.2 mg/dL (1.8-2.4) Albumin 2.6 g/dL (3.4-5.0) Comment Review of Relevant I have reviewed the following items munir (where applicable) has been applied. Labs Laboratory Tests Test 10/30/19 12:10 10/30/19 17:11 10/30/19 20:40 10/31/19 03:30 Glucose (Fingerstick) 179 mg/dL (70-99) 138 mg/dL (70-99) 241 mg/dL (70-99) Urine Collection Type Unknown Urine Color Yellow Urine Clarity Clear Urine pH 6.5 (<5.0-8.0) Urine Specific [place] 1.020 (1.000-1.030) Urine Protein >=300 mg/dL (NEG-TRACE) Urine Glucose (UA) 100 mg/dL (NEG) Urine Ketones (Stick) Negative mg/dL (NEG) Urine Blood Negative (NEG) Urine Nitrite Negative (NEG) Urine Bilirubin Negative (NEG) Urine Urobilinogen Dipstick 0.2 mg/dL (0.2 mg/dL) Urine Leukocyte Esterase Negative (NEG) Urine RBC Rare /HPF (0-2) Urine WBC 1-4 /HPF (0-4) Urine Squamous Epithelial Cells Mod /LPF Urine Bacteria Moderate /HPF (0-FEW) Urine Mucus Slight /LPF Urine Random Creatinine 97.4 mg/dL (Not Establ.) Urine Random Total Protein 1018.4 mg/dL (Not Establ.) Urine Protein/Creatinine Ratio 88490 mg/g (0-200) Urine Opiates Screen Pos (NEG) Urine Methadone Screen Neg (NEG) Urine Barbiturates Neg (NEG) Urine Phencyclidine Screen Neg (NEG) Urine Amphetamine/Methamphetamine Neg (NEG) Urine Benzodiazepines Screen Neg (NEG) Urine Cocaine Screen Neg (NEG) Urine Cannabinoids Screen Neg (NEG) Urine Ethyl Alcohol Neg (NEG) Test 10/31/19 05:45 10/31/19 07:44 10/31/19 11:47 10/31/19 17:10 Sodium Level 139 mmol/L (136-145) Potassium Level 4.3 mmol/L (3.5-5.1) Chloride Level 103 mmol/L (98-107) Carbon Dioxide Level 21 mmol/L (21-32) Anion Gap 15 (6-14) Blood Urea Nitrogen 45 mg/dL (7-20) Creatinine 5.2 mg/dL (0.6-1.0) Estimated GFR (Cockcroft-Gault) 10.1 Glucose Level 155 mg/dL (70-99) Calcium Level 9.2 mg/dL (8.5-10.1) Phosphorus Level 3.7 mg/dL (2.6-4.7) Magnesium Level 2.2 mg/dL (1.8-2.4) Albumin 2.6 g/dL (3.4-5.0) Hepatitis B Surface Antigen Nonreactive (Nonreactive) Hepatitis B Surface Antibody Reactive Hepatitis B Core Total Antibody Reactive (Nonreactive) Glucose (Fingerstick) 145 mg/dL (70-99) 207 mg/dL (70-99) 141 mg/dL (70-99) Test 10/31/19 17:30 10/31/19 20:35 11/01/19 04:30 Prothrombin Time 12.8 SEC (11.7-14.0) Prothromb Time International Ratio 1.0 (0.8-1.1) Activated Partial Thromboplast Time 31 SEC (24-38) Glucose (Fingerstick) 180 mg/dL (70-99) White Blood Count 9.5 x10^3/uL (4.0-11.0) Red Blood Count 4.68 x10^6/uL (3.50-5.40) Hemoglobin 11.7 g/dL (12.0-15.5) Hematocrit 37.0 % (36.0-47.0) Mean Corpuscular Volume 79 fL (79-100) Mean Corpuscular Hemoglobin 25 pg (25-35) Mean Corpuscular Hemoglobin Concent 32 g/dL (31-37) Red Cell Distribution Width 16.3 % (11.5-14.5) Platelet Count 252 x10^3/uL (140-400) Neutrophils (%) (Auto) 70 % (31-73) Lymphocytes (%) (Auto) 20 % (24-48) Monocytes (%) (Auto) 7 % (0-9) Eosinophils (%) (Auto) 2 % (0-3) Basophils (%) (Auto) 1 % (0-3) Neutrophils # (Auto) 6.6 x10^3/uL (1.8-7.7) Lymphocytes # (Auto) 1.9 x10^3/uL (1.0-4.8) Monocytes # (Auto) 0.6 x10^3/uL (0.0-1.1) Eosinophils # (Auto) 0.2 x10^3/uL (0.0-0.7) Basophils # (Auto) 0.1 x10^3/uL (0.0-0.2) Sodium Level 139 mmol/L (136-145) Potassium Level 5.3 mmol/L (3.5-5.1) Chloride Level 105 mmol/L (98-107) Carbon Dioxide Level 22 mmol/L (21-32) Anion Gap 12 (6-14) Blood Urea Nitrogen 44 mg/dL (7-20) Creatinine 5.5 mg/dL (0.6-1.0) Estimated GFR (Cockcroft-Gault) 9.5 Glucose Level 137 mg/dL (70-99) Calcium Level 8.6 mg/dL (8.5-10.1) Phosphorus Level 4.0 mg/dL (2.6-4.7) Magnesium Level 2.2 mg/dL (1.8-2.4) Albumin 2.6 g/dL (3.4-5.0) Laboratory Tests Test 10/31/19 11:47 10/31/19 17:10 10/31/19 17:30 10/31/19 20:35 Glucose (Fingerstick) 207 mg/dL (70-99) 141 mg/dL (70-99) 180 mg/dL (70-99) Prothrombin Time 12.8 SEC (11.7-14.0) Prothromb Time International Ratio 1.0 (0.8-1.1) Activated Partial Thromboplast Time 31 SEC (24-38) Test 11/01/19 04:30 White Blood Count 9.5 x10^3/uL (4.0-11.0) Red Blood Count 4.68 x10^6/uL (3.50-5.40) Hemoglobin 11.7 g/dL (12.0-15.5) Hematocrit 37.0 % (36.0-47.0) Mean Corpuscular Volume 79 fL (79-100) Mean Corpuscular Hemoglobin 25 pg (25-35) Mean Corpuscular Hemoglobin Concent 32 g/dL (31-37) Red Cell Distribution Width 16.3 % (11.5-14.5) Platelet Count 252 x10^3/uL (140-400) Neutrophils (%) (Auto) 70 % (31-73) Lymphocytes (%) (Auto) 20 % (24-48) Monocytes (%) (Auto) 7 % (0-9) Eosinophils (%) (Auto) 2 % (0-3) Basophils (%) (Auto) 1 % (0-3) Neutrophils # (Auto) 6.6 x10^3/uL (1.8-7.7) Lymphocytes # (Auto) 1.9 x10^3/uL (1.0-4.8) Monocytes # (Auto) 0.6 x10^3/uL (0.0-1.1) Eosinophils # (Auto) 0.2 x10^3/uL (0.0-0.7) Basophils # (Auto) 0.1 x10^3/uL (0.0-0.2) Sodium Level 139 mmol/L (136-145) Potassium Level 5.3 mmol/L (3.5-5.1) Chloride Level 105 mmol/L (98-107) Carbon Dioxide Level 22 mmol/L (21-32) Anion Gap 12 (6-14) Blood Urea Nitrogen 44 mg/dL (7-20) Creatinine 5.5 mg/dL (0.6-1.0) Estimated GFR (Cockcroft-Gault) 9.5 Glucose Level 137 mg/dL (70-99) Calcium Level 8.6 mg/dL (8.5-10.1) Phosphorus Level 4.0 mg/dL (2.6-4.7) Magnesium Level 2.2 mg/dL (1.8-2.4) Albumin 2.6 g/dL (3.4-5.0) Medications Current Medications Labetalol HCl (Normodyne Iv Push) 20 mg 1X ONCE IVP Last administered on 10/28/19at 22:49; Start 10/28/19 at 22:30; Stop 10/28/19 at 22:31; Status DC Acetaminophen/ Hydrocodone Bitart (Lortab 7.5/325) 1 tab PRN Q4HRS PRN PO PAIN Last administered on 10/29/19at 09:57; Start 10/29/19 at 03:00; Stop 10/29/19 at 17:08; Status DC Hydralazine HCl (Apresoline Inj) 5 mg 1X ONCE IVP Last administered on 10/29/19at 03:09; Start 10/29/19 at 03:00; Stop 10/29/19 at 03:04; Status DC Hydralazine HCl (Apresoline Inj) 5 mg PRN Q6HRS PRN IVP ELEVATED BP, SEE COMMENTS Last administered on 10/31/19at 04:24; Start 10/29/19 at 03:00 Insulin Human Lispro (HumaLOG) 0-7 UNITS QIDACHS SQ Last administered on 10/31/19at 12:36; Start 10/29/19 at 07:30 Dextrose (Dextrose 50%-Water Syringe) 12.5 gm PRN Q15MIN PRN IV SEE COMMENTS; Start 10/29/19 at 07:30 Labetalol HCl (Normodyne Iv Push) 20 mg PRN Q2HR PRN IVP HYPERTENSION Last admi nistered on 10/30/19at 07:57; Start 10/29/19 at 07:45 Fluticasone Propionate (Flonase) 2 spray DAILY NS Last administered on 10/18 08:32; Start 10/29/19 at 09:00 Hydralazine HCl (Apresoline) 50 mg BID PO Last administered on 10/29/19 09:43; Start 10/29/19 at 09:00; Stop 10/29/19 at 12:55; Status DC Pantoprazole Sodium (Protonix) 40 mg DAILYAC PO Last administered on 10/31/19at 08:50; Start 10/29/19 at 08:00 Non-Formulary Medication (Fluticasone/ Umeclidin/ Vilanter (Trelegy Ellipta 100-62.5-25)) 1 each BID IH ; Start 10/29/19 at 09:00; Status UNV Isosorbide Mononitrate (Imdur) 60 mg DAILY PO Last administered on 10/31/19at 0 8:49; Start 10/29/19 at 09:00 Nicotine (Nicoderm Cq 21mg) 1 patch DAILY TD ; Start 10/29/19 at 09:00 Heparin Sodium (Porcine) (Heparin Sodium) 5,000 unit Q12HR SQ Last administered on 10/31/19at 08:55; Start 10/29/19 at 09:00 Albuterol Sulfate (Ventolin Neb Soln) 2.5 mg Q6HRS NEB Last administered on 11/01/19at 00:26; Start 10/29/19 at 12:00 Budesonide (Pulmicort) 0.5 mg RTBID NEB Last administered on 10/31/19at 20:01; Start 10/29/19 at 08:30 Hydralazine HCl (Apresoline) 100 mg TID PO Last administered on 10/31/19at 20:38; Start 10/29/19 at 13:00 Magnesium Sulfate 50 ml @ 25 mls/hr PRN DAILY PRN IV for Mag < 1.7 on am labs; Start 10/29/19 at 13:00 Spironolactone (Aldactone) 25 mg BID PO Last administered on 10/31/19at 20:38; Start 10/29/19 at 21:00 Potassium Chloride (Klor-Con) 40 meq QID PO Last administered on 10/29/19at 17:30; Start 10/29/19 at 13:00; Stop 10/29/19 at 17:01; Status DC Prochlorperazine Edisylate (Compazine) 10 mg PRN Q6HRS PRN IV HUANG/NAUSEA/VOMITING Last administered on 10/30/19 16:18; Start 10/29/19 at 17:15 Tramadol HCl (Ultram) 50 mg PRN Q6HRS PRN PO PAIN Last administered on 10/31/19 11:39; Start 10/29/19 at 17:15 Psyllium Hydrophilic Mucilloid (Metamucil Fiber Packet) 1 pkt QHS PO Last administered on 10/31/19 20:36; Start 10/29/19 at 21:00 Polyethylene Glycol (miraLAX PACKET) 17 gm QHS PO Last administered on 10/31/19 20:36; Start 10/29/19 at 21:00 Diltiazem HCl (Cardizem 24hr Cd) 240 mg DAILY PO Last administered on 10/31/19at 08:51; Start 10/30/19 at 09:00 Potassium Chloride (Klor-Con) 40 meq BIDWMEALS PO Last administered on 10/31/19at 08:50; Start 10/30/19 at 08:30 Labetalol HCl (Trandate) 100 mg BID PO Last administered on 10/31/19 08:51; Start 10/30/19 at 10:30; Stop 10/31/19 at 15:26; Status DC Labetalol HCl (Trandate) 200 mg BID PO Last administered on 10/31/19at 20:37; Start 10/31/19 at 21:00 Aspirin (Ecotrin) 81 mg DAILYWBKFT PO ; Start 11/02/19 at 08:00 Active Scripts Active Humalog (Insulin Lispro) 100 Unit/1 Ml Insuln.pen 0 Units SQ TIDWMEALS 30 Days Fluticasone Propionate Nasal [place] (Fluticasone Propionate) 16 Gm [place].susp 2 [place] NS DAILY 30 Days [Nicotine 21MG] 1 PATCH Patch 1 Patch TD DAILY 30 Days Reported Hydralazine Hcl 50 Mg Tablet 1 Tab PO BID Hydrocodone-Acetamin 7.5-325 (Hydrocodone/Acetaminophen) 1 Each Tablet 1 Each PO PRN Q6HRS PRN Isosorbide Mononitrate Er (Isosorbide Mononitrate) 60 Mg Tab.er.24h 60 Mg PO BID Furosemide 40 Mg Tablet 40 Mg PO DAILY Protonix (Pantoprazole Sodium) 40 Mg Tablet.dr 40 Mg PO DAILYAC Trelegy Ellipta 100-62.5-25 (Fluticasone/Umeclidin/Vilanter) 1 Each Blst.w.dev 1 Each IH BID Albuterol Sulfate Hfa Inhaler (Albuterol Sulfate) 8.5 Gm Hfa.aer.ad 8.5 Gm IH Vitals/I & O Vital Sign - Last 24 Hours 10/31/19 10/31/19 10/31/19 10/31/19 11:00 11:39 12:01 12:39 Temp 99.7 99.7 Pulse 77 Resp 16 16 18 B/P (MAP) 129/77 (94) Pulse Ox 95 96 O2 Delivery Room Air Room Air Room Air Room Air 10/31/19 10/31/19 10/31/19 10/31/19 15:00 15:02 19:45 20:03 Temp 97.7 97.8 97.7 97.8 Pulse 72 70 71 Resp 18 20 B/P (MAP) 137/62 (87) 137/62 188/96 (126) Pulse Ox 93 96 96 O2 Delivery Room Air Room Air Room Air 10/31/19 10/31/19 10/31/19 10/31/19 20:37 20:38 20:41 23:00 Temp 98.0 98.0 Pulse 71 71 61 Resp 20 B/P (MAP) 188/96 188/96 135/68 (90) Pulse Ox 97 O2 Delivery Room Air Room Air 11/01/19 11/01/19 11/01/19 11/01/19 00:27 03:15 07:00 07:44 Temp 98.8 98.4 98.8 98.4 Pulse 65 81 Resp 22 18 B/P (MAP) 193/97 (129) 188/79 (115) Pulse Ox 96 98 94 O2 Delivery Nasal Cannula Nasal Cannula Room Air Nasal Cannula O2 Flow Rate 2.0 2.0 Intake and Output 10/31/19 10/31/19 11/01/19 15:00 23:00 07:00 Intake Total 420 ml 750 ml 400 ml Output Total 500 ml 700 ml 300 ml Balance -80 ml 50 ml 100 ml Justicifation of Admission Dx: Justifications for Admission: Justification of Admission Dx: No Acute Renal Failure: Serum Cr > 4mg/dL KAROLINE BUSTOS MD Nov 01, 2019 10:09
[2019-11-01] MEDS: FLUTICASONE 50MCG/NASAL SPRAY 16GM BOTTLE. NS SCH (10:15)
[2019-11-01] MEDS: NICOTINE 21MG PATCH. TD SCH (10:15)
[2019-11-01] MEDS: PANTOPRAZOLE 40 MG TABLET.DR. PO SCH (10:17)
--- NOTE | 2019-11-01 10:17 | PDOC ---
PROGRESS NOTES Subjective Subjective The patient is a 64-year-old female with a history of chronic renal insufficiency, which has progressed and is now requiring hemodialysis. She has been hospitalized and Nephrology has evaluated. Plans for Interventional Radiology to place a Perm-A-Cath and start hemodialysis have been made for today. She has never been on hemodialysis in the past. She has had no dialysis access procedures in her arms. She is right arm dominant, prefers the access in her left arm if possible. She reports some chronic weakness in her left arm, but it is functional. She reports no history of pacemakers or defibrillators. She reports no pain in her arms or hands. She currently has an IV in her right hand. When I arrived this morning, she was sound asleep. She woke up quickly when I introduced myself. She has no complaints of pain currently. She has no complaints of left arm dysfunction at this time. She has no complaints of shortness of breath. Objective Objective Vital Signs Date Time Temp Pulse Resp B/P (MAP) Pulse Ox O2 Delivery O2 Flow Rate FiO2 11/01/19 07:44 Nasal Cannula 2.0 11/01/19 07:00 98.4 81 18 188/79 (115) 94 98.4 Intake and Output 11/01/19 07:00 Intake Total 1570 ml Output Total 1500 ml Balance 70 ml Intake Oral 1570 ml Output Urine Total 1500 ml Physical Exam Physical Exam Her vital signs are stable. She is alert and cooperative. She has a 2+ left radial pulse. Her left arm is without wounds, lacerations or scars. 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 Heart: Regular rate Extremities: No cyanosis General: Cooperative, No acute distress Lungs: Normal air movement Neuro: Normal speech Psych/Mental Status: Mental status NL, Mood NL Skin: No rashes Assessment Assessment 64-year-old diabetic female with end-stage renal disease now requiring hemodialysis. She is due to have a PermCath placed in interventional radiology today. She has an excellent radial pulse at her left wrist. She had vein mapping yesterday which Dr. Scott reviewed. I discussed with the patient's our recommendations for a left radiocephalic AV fistula. We would like her to feel better from initiating hemodialysis before placing the fistula in her left forearm. She is in agreement with this plan. Plan: Begin aspirin daily. PermCath placement today in interventional radiology. Our plans are for a left radiocephalic AV fistula on an outpatient basis. We will contact her once we get surgery set up for her and give her all of her information and instruction. This can likely occur next week. Comment Review of Relevant I have reviewed the following items munir (where applicable) has been applied. Labs Laboratory Tests Test 10/30/19 12:10 10/30/19 17:11 10/30/19 20:40 10/31/19 03:30 Glucose (Fingerstick) 179 mg/dL (70-99) 138 mg/dL (70-99) 241 mg/dL (70-99) Urine Collection Type Unknown Urine Color Yellow Urine Clarity Clear Urine pH 6.5 (<5.0-8.0) Urine Specific [place] 1.020 (1.000-1.030) Urine Protein >=300 mg/dL (NEG-TRACE) Urine Glucose (UA) 100 mg/dL (NEG) Urine Ketones (Stick) Negative mg/dL (NEG) Urine Blood Negative (NEG) Urine Nitrite Negative (NEG) Urine Bilirubin Negative (NEG) Urine Urobilinogen Dipstick 0.2 mg/dL (0.2 mg/dL) Urine Leukocyte Esterase Negative (NEG) Urine RBC Rare /HPF (0-2) Urine WBC 1-4 /HPF (0-4) Urine Squamous Epithelial Cells Mod /LPF Urine Bacteria Moderate /HPF (0-FEW) Urine Mucus Slight /LPF Urine Random Creatinine 97.4 mg/dL (Not Establ.) Urine Random Total Protein 1018.4 mg/dL (Not Establ.) Urine Protein/Creatinine Ratio 34683 mg/g (0-200) Urine Opiates Screen Pos (NEG) Urine Methadone Screen Neg (NEG) Urine Barbiturates Neg (NEG) Urine Phencyclidine Screen Neg (NEG) Urine Amphetamine/Methamphetamine Neg (NEG) Urine Benzodiazepines Screen Neg (NEG) Urine Cocaine Screen Neg (NEG) Urine Cannabinoids Screen Neg (NEG) Urine Ethyl Alcohol Neg (NEG) Test 10/31/19 05:45 10/31/19 07:44 10/31/19 11:47 10/31/19 17:10 Sodium Level 139 mmol/L (136-145) Potassium Level 4.3 mmol/L (3.5-5.1) Chloride Level 103 mmol/L (98-107) Carbon Dioxide Level 21 mmol/L (21-32) Anion Gap 15 (6-14) Blood Urea Nitrogen 45 mg/dL (7-20) Creatinine 5.2 mg/dL (0.6-1.0) Estimated GFR (Cockcroft-Gault) 10.1 Glucose Level 155 mg/dL (70-99) Calcium Level 9.2 mg/dL (8.5-10.1) Phosphorus Level 3.7 mg/dL (2.6-4.7) Magnesium Level 2.2 mg/dL (1.8-2.4) Albumin 2.6 g/dL (3.4-5.0) Hepatitis B Surface Antigen Nonreactive (Nonreactive) Hepatitis B Surface Antibody Reactive Hepatitis B Core Total Antibody Reactive (Nonreactive) Glucose (Fingerstick) 145 mg/dL (70-99) 207 mg/dL (70-99) 141 mg/dL (70-99) Test 10/31/19 17:30 10/31/19 20:35 11/01/19 04:30 Prothrombin Time 12.8 SEC (11.7-14.0) Prothromb Time International Ratio 1.0 (0.8-1.1) Activated Partial Thromboplast Time 31 SEC (24-38) Glucose (Fingerstick) 180 mg/dL (70-99) White Blood Count 9.5 x10^3/uL (4.0-11.0) Red Blood Count 4.68 x10^6/uL (3.50-5.40) Hemoglobin 11.7 g/dL (12.0-15.5) Hematocrit 37.0 % (36.0-47.0) Mean Corpuscular Volume 79 fL (79-100) Mean Corpuscular Hemoglobin 25 pg (25-35) Mean Corpuscular Hemoglobin Concent 32 g/dL (31-37) Red Cell Distribution Width 16.3 % (11.5-14.5) Platelet Count 252 x10^3/uL (140-400) Neutrophils (%) (Auto) 70 % (31-73) Lymphocytes (%) (Auto) 20 % (24-48) Monocytes (%) (Auto) 7 % (0-9) Eosinophils (%) (Auto) 2 % (0-3) Basophils (%) (Auto) 1 % (0-3) Neutrophils # (Auto) 6.6 x10^3/uL (1.8-7.7) Lymphocytes # (Auto) 1.9 x10^3/uL (1.0-4.8) Monocytes # (Auto) 0.6 x10^3/uL (0.0-1.1) Eosinophils # (Auto) 0.2 x10^3/uL (0.0-0.7) Basophils # (Auto) 0.1 x10^3/uL (0.0-0.2) Sodium Level 139 mmol/L (136-145) Potassium Level 5.3 mmol/L (3.5-5.1) Chloride Level 105 mmol/L (98-107) Carbon Dioxide Level 22 mmol/L (21-32) Anion Gap 12 (6-14) Blood Urea Nitrogen 44 mg/dL (7-20) Creatinine 5.5 mg/dL (0.6-1.0) Estimated GFR (Cockcroft-Gault) 9.5 Glucose Level 137 mg/dL (70-99) Calcium Level 8.6 mg/dL (8.5-10.1) Phosphorus Level 4.0 mg/dL (2.6-4.7) Magnesium Level 2.2 mg/dL (1.8-2.4) Albumin 2.6 g/dL (3.4-5.0) Laboratory Tests Test 10/31/19 11:47 10/31/19 17:10 10/31/19 17:30 10/31/19 20:35 Glucose (Fingerstick) 207 mg/dL (70-99) 141 mg/dL (70-99) 180 mg/dL (70-99) Prothrombin Time 12.8 SEC (11.7-14.0) Prothromb Time International Ratio 1.0 (0.8-1.1) Activated Partial Thromboplast Time 31 SEC (24-38) Test 11/01/19 04:30 White Blood Count 9.5 x10^3/uL (4.0-11.0) Red Blood Count 4.68 x10^6/uL (3.50-5.40) Hemoglobin 11.7 g/dL (12.0-15.5) Hematocrit 37.0 % (36.0-47.0) Mean Corpuscular Volume 79 fL (79-100) Mean Corpuscular Hemoglobin 25 pg (25-35) Mean Corpuscular Hemoglobin Concent 32 g/dL (31-37) Red Cell Distribution Width 16.3 % (11.5-14.5) Platelet Count 252 x10^3/uL (140-400) Neutrophils (%) (Auto) 70 % (31-73) Lymphocytes (%) (Auto) 20 % (24-48) Monocytes (%) (Auto) 7 % (0-9) Eosinophils (%) (Auto) 2 % (0-3) Basophils (%) (Auto) 1 % (0-3) Neutrophils # (Auto) 6.6 x10^3/uL (1.8-7.7) Lymphocytes # (Auto) 1.9 x10^3/uL (1.0-4.8) Monocytes # (Auto) 0.6 x10^3/uL (0.0-1.1) Eosinophils # (Auto) 0.2 x10^3/uL (0.0-0.7) Basophils # (Auto) 0.1 x10^3/uL (0.0-0.2) Sodium Level 139 mmol/L (136-145) Potassium Level 5.3 mmol/L (3.5-5.1) Chloride Level 105 mmol/L (98-107) Carbon Dioxide Level 22 mmol/L (21-32) Anion Gap 12 (6-14) Blood Urea Nitrogen 44 mg/dL (7-20) Creatinine 5.5 mg/dL (0.6-1.0) Estimated GFR (Cockcroft-Gault) 9.5 Glucose Level 137 mg/dL (70-99) Calcium Level 8.6 mg/dL (8.5-10.1) Phosphorus Level 4.0 mg/dL (2.6-4.7) Magnesium Level 2.2 mg/dL (1.8-2.4) Albumin 2.6 g/dL (3.4-5.0) Medications Current Medications Labetalol HCl (Normodyne Iv Push) 20 mg 1X ONCE IVP Last administered on 10/28/19at 22:49; Start 10/28/19 at 22:30; Stop 10/28/19 at 22:31; Status DC Acetaminophen/ Hydrocodone Bitart (Lortab 7.5/325) 1 tab PRN Q4HRS PRN PO PAIN Last administered on 10/29/19at 09:57; Start 10/29/19 at 03:00; Stop 10/29/19 at 17:08; Status DC Hydralazine HCl (Apresoline Inj) 5 mg 1X ONCE IVP Last administered on 10/29/19at 03:09; Start 10/29/19 at 03:00; Stop 10/29/19 at 03:04; Status DC Hydralazine HCl (Apresoline Inj) 5 mg PRN Q6HRS PRN IVP ELEVATED BP, SEE COMMENTS Last administered on 10/31/19at 04:24; Start 10/29/19 at 03:00 Insulin Human Lispro (HumaLOG) 0-7 UNITS QIDACHS SQ Last administered on 10/31/19at 12:36; Start 10/29/19 at 07:30 Dextrose (Dextrose 50%-Water Syringe) 12.5 gm PRN Q15MIN PRN IV SEE COMMENTS; Start 10/29/19 at 07:30 Labetalol HCl (Normodyne Iv Push) 20 mg PRN Q2HR PRN IVP HYPERTENSION Last administered on 10/30/19at 07:57; Start 10/29/19 at 07:45 Fluticasone Propionate (Flonase) 2 spray DAILY NS Last administered on 10/30/19at 08:32; Start 10/29/19 at 09:00 Hydralazine HCl (Apresoline) 50 mg BID PO Last administered on 10/29/19at 09:43; Start 10/29/19 at 09:00; Stop 10/29/19 at 12:55; Status DC Pantoprazole Sodium (Protonix) 40 mg DAILYAC PO Last administered on 10/31/19at 08:50; Start 10/29/19 at 08:00 Non-Formulary Medication (Fluticasone/ Umeclidin/ Vilanter (Trelegy Ellipta 100-62.5-25)) 1 each BID IH ; Start 10/29/19 at 09:00; Status UNV Isosorbide Mononitrate (Imdur) 60 mg DAILY PO Last administered on 10/31/19at 08:49; Start 10/29/19 at 09:00 Nicotine (Nicoderm Cq 21mg) 1 patch DAILY TD ; Start 10/29/19 at 09:00 Heparin Sodium (Porcine) (Heparin Sodium) 5,000 unit Q12HR SQ Last administered on 10/31/19 08:55; Start 10/29/19 at 09:00 Albuterol Sulfate (Ventolin Neb Soln) 2.5 mg Q6HRS NEB Last administered on 11/01/19 00:26; Start 10/29/19 at 12:00 Budesonide (Pulmicort) 0.5 mg RTBID NEB Last administered on 10/31/19 20:01; Start 10/29/19 at 08:30 Hydralazine HCl (Apresoline) 100 mg TID PO Last administered on 10/31/19 20:38; Start 10/29/19 at 13:00 Magnesium Sulfate 50 ml @ 25 mls/hr PRN DAILY PRN IV for Mag < 1.7 on am labs; Start 10/29/19 at 13:00 Spironolactone (Aldactone) 25 mg BID PO Last administered on 10/31/19 20:38; Start 10/29/19 at 21:00 Potassium Chloride (Klor-Con) 40 meq QID PO Last administered on 10/29/19 17:30; Start 10/29/19 at 13:00; Stop 10/29/19 at 17:01; Status DC Prochlorperazine Edisylate (Compazine) 10 mg PRN Q6HRS PRN IV HUANG/NAUSEA/VOMITING Last administered on 10/30/19 16:18; Start 10/29/19 at 17:15 Tramadol HCl (Ultram) 50 mg PRN Q6HRS PRN PO PAIN Last administered on 10/31/19 11:39; Start 10/29/19 at 17:15 Psyllium Hydrophilic Mucilloid (Metamucil Fiber Packet) 1 pkt QHS PO Last administered on 10/31/19 20:36; Start 10/29/19 at 21:00 Polyethylene Glycol (miraLAX PACKET) 17 gm QHS PO Last administered on 10/31/19 20:36; Start 10/29/19 at 21:00 Diltiazem HCl (Cardizem 24hr Cd) 240 mg DAILY PO Last administered on 10/31/19 08:51; Start 10/30/19 at 09:00 Potassium Chloride (Klor-Con) 40 meq BIDWMEALS PO Last administered on 10/31/19at 08:50; Start 10/30/19 at 08:30 Labetalol HCl (Trandate) 100 mg BID PO Last administered on 10/31/19at 08:51; Start 10/30/19 at 10:30; Stop 10/31/19 at 15:26; Status DC Labetalol HCl (Trandate) 200 mg BID PO Last administered on 10/31/19at 20:37; Start 10/31/19 at 21:00 Aspirin (Ecotrin) 81 mg DAILYWBKFT PO ; Start 11/02/19 at 08:00 Active Scripts Active Humalog (Insulin Lispro) 100 Unit/1 Ml Insuln.pen 0 Units SQ TIDWMEALS 30 Days Fluticasone Propionate Nasal Jones (Fluticasone Propionate) 16 Gm Jones.susp 2 Jones NS DAILY 30 Days [Nicotine 21MG] 1 PATCH Patch 1 Patch TD DAILY 30 Days Reported Hydralazine Hcl 50 Mg Tablet 1 Tab PO BID Hydrocodone-Acetamin 7.5-325 (Hydrocodone/Acetaminophen) 1 Each Tablet 1 Each PO PRN Q6HRS PRN Isosorbide Mononitrate Er (Isosorbide Mononitrate) 60 Mg Tab.er.24h 60 Mg PO BID Furosemide 40 Mg Tablet 40 Mg PO DAILY Protonix (Pantoprazole Sodium) 40 Mg Tablet.dr 40 Mg PO DAILYAC Trelegy Ellipta 100-62.5-25 (Fluticasone/Umeclidin/Vilanter) 1 Each Blst.w.dev 1 Each IH BID Albuterol Sulfate Hfa Inhaler (Albuterol Sulfate) 8.5 Gm Hfa.aer.ad 8.5 Gm IH Vitals/I & O Vital Sign - Last 24 Hours 10/31/19 10/31/19 10/31/19 10/31/19 11:00 11:39 12:01 12:39 Temp 99.7 99.7 Pulse 77 Resp 16 16 18 B/P (MAP) 129/77 (94) Pulse Ox 95 96 O2 Delivery Room Air Room Air Room Air Room Air 10/31/19 10/31/19 10/31/19 10/31/19 15:00 15:02 19:45 20:03 Temp 97.7 97.8 97.7 97.8 Pulse 72 70 71 Resp 18 20 B/P (MAP) 137/62 (87) 137/62 188/96 (126) Pulse Ox 93 96 96 O2 Delivery Room Air Room Air Room Air 10/31/19 10/31/19 10/31/19 10/31/19 20:37 20:38 20:41 23:00 Temp 98.0 98.0 Pulse 71 71 61 Resp 20 B/P (MAP) 188/96 188/96 135/68 (90) Pulse Ox 97 O2 Delivery Room Air Room Air 11/01/19 11/01/19 11/01/19 11/01/19 00:27 03:15 07:00 07:44 Temp 98.8 98.4 98.8 98.4 Pulse 65 81 Resp 22 18 B/P (MAP) 193/97 (129) 188/79 (115) Pulse Ox 96 98 94 O2 Delivery Nasal Cannula Nasal Cannula Room Air Nasal Cannula O2 Flow Rate 2.0 2.0 Intake and Output 10/31/19 10/31/19 11/01/19 15:00 23:00 07:00 Intake Total 420 ml 750 ml 400 ml Output Total 500 ml 700 ml 300 ml Balance -80 ml 50 ml 100 ml Justicifation of Admission Dx: Justifications for Admission: Justification of Admission Dx: No Acute Renal Failure: Serum Cr > 4mg/dL KECIA RIVERA [employer] NETWORK INSTALLER Nov 01, 2019 10:17
[2019-11-01] MEDS ORDERED: LIDOCAINE 1%/EPI 1:100,000 20 ML VIAL. ONE (11:07)
[2019-11-01] MEDS ORDERED: LIDOCAINE 1%/EPI 1:100,000 20 ML VIAL. SQ ONE (11:30)
[2019-11-01] MEDS ORDERED: fentaNYL PF VIAL 100 MCG/2 ML VIAL IV ONE (11:30)
[2019-11-01] MEDS ORDERED: MIDAZOLAM HCL/PF 2 MG/2 ML VIAL. IV ONE (11:30)
--- NOTE | 2019-11-01 11:30 | NUR ---
SS following up with discharge planning. SS reviewed pt chart and discussed with pt RN. Pt is currently on room air. Per RN, pt did not have tunneled cath on 10/31/2019. Pt to have tunneled cath today and first HD today. Pt COVID19 pending. SS currently awaiting on tunneled cath report, flow sheet from first HD, and COVID19 test result and will proceed accordingly with OPHD referral.
[2019-11-01] MEDS ORDERED: MIDAZOLAM HCL/PF 2 MG/2 ML VIAL. ONE (11:45)
[2019-11-01] MEDS ORDERED: fentaNYL PF VIAL 100 MCG/2 ML VIAL ONE (11:45)
[2019-11-01] MEDS ORDERED: ceFAZolin SODIUM IV Push 1 GM VIAL. IVP ONE (12:00)
[2019-11-01] MEDS ORDERED: IV NORMAL SALINE 1000ML BAG 1,000 ML IV PRN ×2 (12:00)
[2019-11-01] MEDS ORDERED: DIALYSIS PATIENT. MC PRN ×2 (12:45)
--- NOTE | 2019-11-01 12:51 | PDOC ---
Provider Note Provider Note If she remains inpatient, and she is agreeable, there is surgery time this Thursday for left radiocephalic AF Fistula creation for Ms. Persaud. I will place NPO orders and consent orders for surgery Thursday just in case she stays and agrees. Justicifation of Admission Dx: Justifications for Admission: Justification of Admission Dx: No Acute Renal Failure: Serum Cr > 4mg/dL KECIA RIVERA NETWORK SUPPORT Nov 01, 2019 12:51
--- NOTE | 2019-11-01 13:10 | PDOC ---
RONNELL PEREZ REBECA 11/01/19 1310: CARDIO Progress Notes Date and Time Date of Service 11/01/19 Time of Evaluation 1310 Subjective Subjective: No Chest Pain, No shortness of breath, No Palpitations Vitals Vitals Vital Signs Date Time Temp Pulse Resp B/P (MAP) Pulse Ox O2 Delivery O2 Flow Rate FiO2 11/01/19 12:26 94 16 96 Nasal Cannula 2.0 11/01/19 11:00 98.3 167/82 (110) 98.3 Weight Weight [ ] Input and Output Intake and Output Intake and Output 11/01/19 07:00 Intake Total 1570 ml Output Total 1500 ml Balance 70 ml Intake Oral 1570 ml Output Urine Total 1500 ml Laboratory Labs Laboratory Tests Test 10/31/19 17:10 10/31/19 17:30 10/31/19 20:35 11/01/19 04:30 Glucose (Fingerstick) 141 mg/dL (70-99) 180 mg/dL (70-99) Prothrombin Time 12.8 SEC (11.7-14.0) Prothromb Time International Ratio 1.0 (0.8-1.1) Activated Partial Thromboplast Time 31 SEC (24-38) White Blood Count 9.5 x10^3/uL (4.0-11.0) Red Blood Count 4.68 x10^6/uL (3.50-5.40) Hemoglobin 11.7 g/dL (12.0-15.5) Hematocrit 37.0 % (36.0-47.0) Mean Corpuscular Volume 79 fL (79-100) Mean Corpuscular Hemoglobin 25 pg (25-35) Mean Corpuscular Hemoglobin Concent 32 g/dL (31-37) Red Cell Distribution Width 16.3 % (11.5-14.5) Platelet Count 252 x10^3/uL (140-400) Neutrophils (%) (Auto) 70 % (31-73) Lymphocytes (%) (Auto) 20 % (24-48) Monocytes (%) (Auto) 7 % (0-9) Eosinophils (%) (Auto) 2 % (0-3) Basophils (%) (Auto) 1 % (0-3) Neutrophils # (Auto) 6.6 x10^3/uL (1.8-7.7) Lymphocytes # (Auto) 1.9 x10^3/uL (1.0-4.8) Monocytes # (Auto) 0.6 x10^3/uL (0.0-1.1) Eosinophils # (Auto) 0.2 x10^3/uL (0.0-0.7) Basophils # (Auto) 0.1 x10^3/uL (0.0-0.2) Sodium Level 139 mmol/L (136-145) Potassium Level 5.3 mmol/L (3.5-5.1) Chloride Level 105 mmol/L (98-107) Carbon Dioxide Level 22 mmol/L (21-32) Anion Gap 12 (6-14) Blood Urea Nitrogen 44 mg/dL (7-20) Creatinine 5.5 mg/dL (0.6-1.0) Estimated GFR (Cockcroft-Gault) 9.5 Glucose Level 137 mg/dL (70-99) Calcium Level 8.6 mg/dL (8.5-10.1) Phosphorus Level 4.0 mg/dL (2.6-4.7) Magnesium Level 2.2 mg/dL (1.8-2.4) Albumin 2.6 g/dL (3.4-5.0) Test 11/01/19 11:04 Glucose (Fingerstick) 156 mg/dL (70-99) Microbiology Micro Microbiology 10/31/19 Urine Culture - Final, Complete Physical Exam HEENT: Neck Supple W Full Motion Chest: Symmetric LUNGS: Clear to Auscultation Heart: RRR Abdomen: Soft N/T, Other (obese) Extremities: No Calf Tenderness Neurology: alert, oriented, follow commands Assessment Assessment 1. Hypertensive urgency; renal duplex 03/07 without evidence of stenosis. Remains mildly elevated 2. CKD; now ESRD. HD to initiate today follow HD cath placement 3. Chronic diastolic CHF; appears compensated. Recent echo with preserved LV systolic function 4. Dyslipidemia 5. Diabetes, II 6. Obesity 7. H/o poor compliance 8. Hyperkalemia Recommendations Continue current therapy Monitor trend post HD initiation Fluid offloading/management via HD as per nephrology Supportive care Justicifation of Admission Dx: Justifications for Admission: Justification of Admission Dx: No Acute Renal Failure: Serum Cr > 4mg/dL VINCE FRIAS MD 11/01/19 8049: CARDIO Progress Notes Plan Plan Pt. seen and examined. Agree with above S[employer] TRAINER note. Supportive care. Will follow along RONNELL PEREZ APRN Nov 01, 2019 13:10 VINCE FRIAS MD Nov 01, 2019 17:09
[2019-11-01 14:11] LABS: KAPPA FREE 116.3 mg/L (3.3-19.4); KAPPA LAMBDA RATIO 0.88 (0.26-1.65); LAMBDA FREE 132.9 mg/L (5.7-26.3)
[2019-11-01] MEDS: traMADol 50 MG TABLET PO PRN (14:38)
[2019-11-01 15:12] LABS: COMMENT IMMUNOFIX SERUM Note: (.); IMMUNOGLOBULIN A 455 mg/dL (87-352); IMMUNOGLOBULIN G 764 mg/dL (586-1602); IMMUNOGLOBULIN M 60 mg/dL (26-217)
[2019-11-01] MEDS: ISOSORBIDE MONONITRATE ER 30 MG TAB.ER.24H PO SCH (18:20)
[2019-11-01 19:09] LABS: ALBUM 2.5 g/dL (2.9-4.4); ALPHA 1 0.2 g/dL (0.0-0.4); ALPHA 2 0.8 g/dL (0.4-1.0); BETA 1.1 g/dL (0.7-1.3); GAMMA 0.7 g/dL (0.4-1.8); PROTEIN TOTAL 5.3 g/dL (6.0-8.5); SPEP AG RATIO 0.9 (0.7-1.7)
[2019-11-01] MEDS: PSYLLIUM HUSK (SUGAR FREE) 1 PKT PACKET PO SCH (21:09)
[2019-11-01] MEDS: POLYETHYLENE GLYCOL 3350 17 GM PACKET. PO SCH (21:09)
[2019-11-01] MEDS: PROCHLORPERAZINE 10 MG/2 ML VIAL. IV PRN (21:13)
[2019-11-02 03:00] VITALS: BP 165/83
[2019-11-02] MEDS: traMADol 50 MG TABLET PO PRN ×3 (05:49→20:03)
[2019-11-02 06:13] VITALS: BP 166/85
[2019-11-02] MEDS: INSULIN LISPRO 300 UNITS/3 ML VIAL. SQ SCH ×4 (07:30→20:09)
[2019-11-02] MEDS: BUDESONIDE 0.5 MG/2 ML NEBU. NEB SCH ×2 (07:38→20:30)
[2019-11-02] MEDS: ALBUTEROL SULFATE 2.5 MG/3 ML NEBU. NEB SCH ×4 (07:38→23:54)
[2019-11-02] MEDS ORDERED: IV NORMAL SALINE 1000ML BAG 1,000 ML IV PRN ×2 (08:00)
[2019-11-02] MEDS: POTASSIUM CHLORIDE 20 MEQ TABLET.ER. PO SCH ×2 (08:00→17:00)
--- NOTE | 2019-11-02 08:07 | RAD ---
Procedure: Tunneled hemodialysis catheter placement 11/02/2019 6:03 AM Clinical Indication: New Onset ESRD Sterility: All elements of maximal sterile barrier technique including the use of a cap, mask, sterile gown, sterile gloves, large sterile sheet, appropriate hand hygiene, and 2% chlorhexidine for cutaneous antisepsis (or acceptable alternative antiseptic per current guidelines) were followed for this procedure. Consent: The procedure was explained in its entirety to the patient or the patients designated regional sales representative by a member of the treatment team, including a discussion of the risks, benefits and commonly accepted alternatives to the procedure, as well as the expected consequences of no therapy whatsoever. Discussion of the risks included, but was not limited to, those that are most frequent and those that are rare but possibly severe or life-threatening, as well as the possibility of unforeseen complications. Technique and Findings: Following informed consent, a timeout procedure was performed. The patient was prepped and draped in the usual sterile fashion. Ultrasound interrogation of the right neck revealed patency and compressibility of the right internal jugular vein. A 21-gauge micropuncture was then used to gain access to this vein under ultrasound guidance. A hard copy ultrasound image was recorded. The needle was exchanged over a wire for a 4 Portuguese sheath which was used to guide an guidewire into the IVC. The skin over the right anterior chest wall was copiously anesthetized with 1% Lidocaine and a small dermatotomy was made. A 23 cm tipped cuff palindrome tunneled hemodialysis catheter was then tunneled subcutaneously towards the neck dermatotomy and deployed through a large caliber peel-away sheath under fluoroscopic guidance such that the distal tip resided in the mid right atrium. Manual flow rates were assessed and found to be within normal limits. The catheter was then flushed, packed with Heparin, capped, and sutured to the skin. The neck dermatotomy was closed with Dermabond. No immediate complications were identified. Sedation: Conscious sedation was administered for 30 minutes. The patient was monitored by a qualified independent observer throughout the time of sedation. Please refer to the medical record for exact doses of medications utilized to achieve moderate sedation. Fluoroscopy time: 0.7 minutes Dose area product: 3 Gycm2 Impression: Tunneled hemodialysis catheter placement as described
--- NOTE | 2019-11-02 08:52 | PDOC ---
PROGRESS NOTES Chief Complaint Chief Complaint impression Hypertensive emergency - with JONO, IV labetalol. Cont home meds as well. Consult nephrology and cardiology Elevated troponin - likely from above, will trend. Asthma with COPD - intermediate card tender smoker. Prn nebs Diabetes-Type II - sliding scale insulin High Cholesterol Hypertension Sleep apnea Gastric ulcers - PPI JONO on Stage 5 CKD Bilateral low-density renal lesions are again seen and incompletely characterized on noncontrast imaging. Couple of these are likely cystic in nature.Further evaluation with nonemergent renal protocol CT or MRI is recommended nonemergent/outpatient setting.Previous imaging studies have shown possible adrenal adenoma Smoker - counseled on cessation, she started smoking again Headache - likely related to HTN, will give compazine PROTEINURIA FEN - ADA diet PPX - heparin FULL CODE Dispo - inpatient iv prn hydralazine 10mg q 4 hrs prn bp support dvt prophylaxis IMMUNOFIXATION URINE AND SERUM covid-19 screen nephrology consult PermCath placement 10/31 in interventional radiology. left radiocephalic AV fistula 11/03 28 min pt exam, chart review, > 50% of time spent with exam, chart review, pt care coordination History of Present Illness History of Present Illness Ms Persaud is a 64yo F w/ PMHx Asthma, Diabetes-Type II, High Cholesterol, Hypertension, sleep apnea, gastric ulcers, Stage 5 CKD, smoker who p/w headache dizziness and elevated blood pressure. Patient states she saw her ear nose throat surgeon today blood pressure was severely elevated at that time. Patient states she was started on new blood pressure medications. She admits to taking all her medications but this evening symptoms of headache dizziness continued patient did not feel any better. Patient presents for further evaluation. On arrival patient's blood pressure was greater than 200/100 systolic. Patient was treated with labetalol 20 mg IV push. Patient's blood pressure improved to the 190s systolic, but diastolic remained 119mmHg. Denies any associated chest pain. On further review from previous hospital discharge she was told to restart losartan hydrochlorothiazide, then was instructed by cardiology to start on appropriate medications, Imdur and hydralazine. However she was instructed by someone at her PCP office to go ahead back on the losartan hydrochlorothiazide. Her primary complaint with me today is actually a headache and she is asking for hydrocodone for this. WBC 9.3, Hb 12.9, platelets 258, NA 140, K3.1, BUN 44, CR 5.2, glucose 112, troponin 0.023 EKG with HR [address] elevation no ST depression no acute ID CXR: No acute changes Admitted for further care Despite addition of CCB still with significantly elevated BP and headache as well as abdominal pain. Nausea. Creatinine stable at 5.2 potassium 3.3. Follow nephrology recommendations. Vitals Vitals Vital Signs Date Time Temp Pulse Resp B/P (MAP) Pulse Ox O2 Delivery O2 Flow Rate FiO2 11/02/19 07:39 97 Room Air 11/02/19 06:49 16 11/02/19 06:13 97.4 18 166/85 (112) 97.4 11/01/19 23:43 2.0 Physical Exam General: Alert, Oriented X3, Cooperative, No acute distress Heart: Regular rate, Normal S1 Lungs: Clear Abdomen: Normal bowel sounds, Soft, No tenderness, No hepatosplenomegaly, No masses Extremities: No cyanosis Skin: No rashes Labs LABS Laboratory Tests Test 11/01/19 11:04 11/01/19 17:15 11/01/19 21:09 11/02/19 08:23 Glucose (Fingerstick) 156 mg/dL (70-99) 161 mg/dL (70-99) 108 mg/dL (70-99) 194 mg/dL (70-99) Comment Review of Relevant I have reviewed the following items munir (where applicable) has been applied. Labs Laboratory Tests Test 10/31/19 11:47 10/31/19 17:10 10/31/19 17:30 10/31/19 20:35 Glucose (Fingerstick) 207 mg/dL (70-99) 141 mg/dL (70-99) 180 mg/dL (70-99) Prothrombin Time 12.8 SEC (11.7-14.0) Prothromb Time International Ratio 1.0 (0.8-1.1) Activated Partial Thromboplast Time 31 SEC (24-38) Test 11/01/19 04:00 11/01/19 04:30 11/01/19 11:04 11/01/19 17:15 Coronavirus (COVID-19)(PCR) Negative (NEGATIVE) White Blood Count 9.5 x10^3/uL (4.0-11.0) Red Blood Count 4.68 x10^6/uL (3.50-5.40) Hemoglobin 11.7 g/dL (12.0-15.5) Hematocrit 37.0 % (36.0-47.0) Mean Corpuscular Volume 79 fL (79-100) Mean Corpuscular Hemoglobin 25 pg (25-35) Mean Corpuscular Hemoglobin Concent 32 g/dL (31-37) Red Cell Distribution Width 16.3 % (11.5-14.5) Platelet Count 252 x10^3/uL (140-400) Neutrophils (%) (Auto) 70 % (31-73) Lymphocytes (%) (Auto) 20 % (24-48) Monocytes (%) (Auto) 7 % (0-9) Eosinophils (%) (Auto) 2 % (0-3) Basophils (%) (Auto) 1 % (0-3) Neutrophils # (Auto) 6.6 x10^3/uL (1.8-7.7) Lymphocytes # (Auto) 1.9 x10^3/uL (1.0-4.8) Monocytes # (Auto) 0.6 x10^3/uL (0.0-1.1) Eosinophils # (Auto) 0.2 x10^3/uL (0.0-0.7) Basophils # (Auto) 0.1 x10^3/uL (0.0-0.2) Sodium Level 139 mmol/L (136-145) Potassium Level 5.3 mmol/L (3.5-5.1) Chloride Level 105 mmol/L (98-107) Carbon Dioxide Level 22 mmol/L (21-32) Anion Gap 12 (6-14) Blood Urea Nitrogen 44 mg/dL (7-20) Creatinine 5.5 mg/dL (0.6-1.0) Estimated GFR (Cockcroft-Gault) 9.5 Glucose Level 137 mg/dL (70-99) Calcium Level 8.6 mg/dL (8.5-10.1) Phosphorus Level 4.0 mg/dL (2.6-4.7) Magnesium Level 2.2 mg/dL (1.8-2.4) Albumin 2.6 g/dL (3.4-5.0) Glucose (Fingerstick) 156 mg/dL (70-99) 161 mg/dL (70-99) Test 11/01/19 21:09 11/02/19 08:23 Glucose (Fingerstick) 108 mg/dL (70-99) 194 mg/dL (70-99) Laboratory Tests Test 11/01/19 11:04 11/01/19 17:15 11/01/19 21:09 11/02/19 08:23 Glucose (Fingerstick) 156 mg/dL (70-99) 161 mg/dL (70-99) 108 mg/dL (70-99) 194 mg/dL (70-99) Microbiology 10/31/19 Urine Culture - Final, Complete Medications Current Medications Labetalol HCl (Normodyne Iv Push) 20 mg 1X ONCE IVP Last administered on 10/28/19at 22:49; Start 10/28/19 at 22:30; Stop 10/28/19 at 22:31; Status DC Acetaminophen/ Hydrocodone Bitart (Lortab 7.5/325) 1 tab PRN Q4HRS PRN PO PAIN Last administered on 10/29/19at 09:57; Start 10/29/19 at 03:00; Stop 10/29/19 at 17:08; Status DC Hydralazine HCl (Apresoline Inj) 5 mg 1X ONCE IVP Last administered on 10/29/19at 03:09; Start 10/29/19 at 03:00; Stop 10/29/19 at 03:04; Status DC Hydralazine HCl (Apresoline Inj) 5 mg PRN Q6HRS PRN IVP ELEVATED BP, SEE COMMENTS Last administered on 10/31/19at 04:24; Start 10/29/19 at 03:00 Insulin Human Lispro (HumaLOG) 0-7 UNITS QIDACHS SQ Last administered on 11/01/19at 18:22; Start 10/29/19 at 07:30 Dextrose (Dextrose 50%-Water Syringe) 12.5 gm PRN Q15MIN PRN IV SEE COMMENTS; Start 10/29/19 at 07:30 Labetalol HCl (Normodyne Iv Push) 20 mg PRN Q2HR PRN IVP HYPERTENSION Last administered on 10/30/19at 07:57; Start 10/29/19 at 07:45 Fluticasone Propionate (Flonase) 2 spray DAILY NS Last administered on 11/01/19 10:15; Start 10/29/19 at 09:00 Hydralazine HCl (Apresoline) 50 mg BID PO Last administered on 10/29/19 09:43; Start 10/29/19 at 09:00; Stop 10/29/19 at 12:55; Status DC Pantoprazole Sodium (Protonix) 40 mg DAILYAC PO Last administered on 11/01/19 10:17; Start 10/29/19 at 08:00 Non-Formulary Medication (Fluticasone/ Umeclidin/ Vilanter (Trelegy Ellipta 100-62.5-25)) 1 each BID IH ; Start 10/29/19 at 09:00; Status UNV Isosorbide Mononitrate (Imdur) 60 mg DAILY PO Last administered on 11/01/19 18:20; Start 10/29/19 at 09:00 Nicotine (Nicoderm Cq 21mg) 1 patch DAILY TD Last administered on 11/01/19 10:15; Start 10/29/19 at 09:00 Heparin Sodium (Porcine) (Heparin Sodium) 5,000 unit Q12HR SQ Last administered on 11/01/19 21:19; Start 10/29/19 at 09:00 Albuterol Sulfate (Ventolin Neb Soln) 2.5 mg Q6HRS NEB Last administered on 11/02/19 07:38; Start 10/29/19 at 12:00 Budesonide (Pulmicort) 0.5 mg RTBID NEB Last administered on 11/02/19at 07:38; Start 10/29/19 at 08:30 Hydralazine HCl (Apresoline) 100 mg TID PO Last administered on 11/01/19 21:10; Start 10/29/19 at 13:00 Magnesium Sulfate 50 ml @ 25 mls/hr PRN DAILY PRN IV for Mag < 1.7 on am labs; Start 10/29/19 at 13:00 Spironolactone (Aldactone) 25 mg BID PO Last administered on 11/01/19 21:11; Start 10/29/19 at 21:00 Potassium Chloride (Klor-Con) 40 meq QID PO Last administered on 10/29/19 17:30; Start 10/29/19 at 13:00; Stop 10/29/19 at 17:01; Status DC Prochlorperazine Edisylate (Compazine) 10 mg PRN Q6HRS PRN IV HUANG/NAUSEA/VOMITING Last administered on 11/01/19 21:13; Start 10/29/19 at 17:15 Tramadol HCl (Ultram) 50 mg PRN Q6HRS PRN PO PAIN Last administered on 11/02/19 05:49; Start 10/29/19 at 17:15 Psyllium Hydrophilic Mucilloid (Metamucil Fiber Packet) 1 pkt QHS PO Last administered on 11/01/19 21:09; Start 10/29/19 at 21:00 Polyethylene Glycol (miraLAX PACKET) 17 gm QHS PO Last administered on 11/01/19 21:09; Start 10/29/19 at 21:00 Diltiazem HCl (Cardizem 24hr Cd) 240 mg DAILY PO Last administered on 11/01/19at 10:16; Start 10/30/19 at 09:00 Potassium Chloride (Klor-Con) 40 meq BIDWMEALS PO Last administered on 11/01/19 18:20; Start 10/30/19 at 08:30 Labetalol HCl (Trandate) 100 mg BID PO Last administered on 10/31/19at 08:51; Start 10/30/19 at 10:30; Stop 10/31/19 at 15:26; Status DC Labetalol HCl (Trandate) 200 mg BID PO Last administered on 11/01/19at 21:11; Start 10/31/19 at 21:00 Aspirin (Ecotrin) 81 mg DAILYWBKFT PO ; Start 11/02/19 at 08:00 Midazolam HCl (Versed) 2 mg 1X ONCE IV Last administered on 11/01/19 12:03; Start 11/01/19 at 11:30; Stop 11/01/19 at 11:33; Status DC Fentanyl Citrate (Fentanyl 2ml Vial) 100 mcg 1X ONCE IV Last administered on 11/01/19 12:03; Start 11/01/19 at 11:30; Stop 11/01/19 at 11:33; Status DC Lidocaine/ Epinephrine (LIDOCAINE 1%-EPI 1:100,000 Multi-Dose) 20 ml 1X ONCE SQ Last administered on 11/01/19at 12:05; Start 11/01/19 at 11:30; Stop 11/01/19 at 11:33; Status DC Cefazolin Sodium (Ancef) 2 gm 1X ONCE IVP ; Start 11/01/19 at 12:00; Stop 11/01/19 at 12:01; Status UNV Cefazolin Sodium/ Dextrose 50 ml @ 100 mls/hr 1X ONCE IV Last administered on 11/01/19at 12:00; Start 11/01/19 at 11:45; Stop 11/01/19 at 12:14; Status DC Cefazolin Sodium (Ancef) 1 gm 1X PRN IVP PRIOR TO PROCEDURE; Start 11/04/19 at 11:30; Stop 11/05/19 at 12:51 Sodium Chloride 1,000 ml @ 1,000 mls/hr Q1H PRN IV hypotension; Start 11/01/19 at 12:00; Stop 11/01/19 at 17:59; Status DC Sodium Chloride 1,000 ml @ 400 mls/hr Q2H30M PRN IV PATENCY; Start 11/01/19 at 12:00; Stop 11/01/19 at 23:59; Status DC Info (PHARMACY MONITORING -- do not chart) 1 each PRN DAILY PRN MC SEE COMMENTS; Start 11/01/19 at 12:45; Status UNV Info (PHARMACY MONITORING -- do not chart) 1 each PRN DAILY PRN MC SEE COMMENTS; Start 11/01/19 at 12:45 Lidocaine/ Epinephrine (LIDOCAINE 1%-EPI 1:100,000 Multi-Dose) 20 ml STK-MED ONCE .ROUTE ; Start 11/01/19 at 11:07; Stop 11/01/19 at 13:31; Status DC Midazolam HCl (Versed) 2 mg STK-MED ONCE .ROUTE ; Start 11/01/19 at 11:45; Stop 11/01/19 at 13:31; Status DC Fentanyl Citrate (Fentanyl 2ml Vial) 100 mcg STK-MED ONCE .ROUTE ; Start 11/01/19 at 11:45; Stop 11/01/19 at 13:31; Status DC Active Scripts Active Humalog (Insulin Lispro) 100 Unit/1 Ml Insuln.pen 0 Units SQ TIDWMEALS 30 Days Fluticasone Propionate Nasal [place] (Fluticasone Propionate) 16 Gm [place].susp 2 [place] NS DAILY 30 Days [Nicotine 21MG] 1 PATCH Patch 1 Patch TD DAILY 30 Days Reported Hydralazine Hcl 50 Mg Tablet 1 Tab PO BID Hydrocodone-Acetamin 7.5-325 (Hydrocodone/Acetaminophen) 1 Each Tablet 1 Each PO PRN Q6HRS PRN Isosorbide Mononitrate Er (Isosorbide Mononitrate) 60 Mg Tab.er.24h 60 Mg PO BID Furosemide 40 Mg Tablet 40 Mg PO DAILY Protonix (Pantoprazole Sodium) 40 Mg Tablet.dr 40 Mg PO DAILYAC Trelegy Ellipta 100-62.5-25 (Fluticasone/Umeclidin/Vilanter) 1 Each Blst.w.dev 1 Each IH BID Albuterol Sulfate Hfa Inhaler (Albuterol Sulfate) 8.5 Gm Hfa.aer.ad 8.5 Gm IH Vitals/I & O Vital Sign - Last 24 Hours 11/01/19 11/01/19 11/01/19 11/01/19 10:15 10:16 11:00 12:03 Temp 98.3 98.3 Pulse 85 80 89 Resp 18 16 B/P (MAP) 167/82 (110) Pulse Ox 96 O2 Delivery Room Air 11/01/19 11/01/19 11/01/19 11/01/19 12:26 14:38 16:00 18:20 Temp 98.7 98.7 Pulse 94 90 94 Resp 16 18 18 B/P (MAP) 155/83 (107) 161/79 Pulse Ox 96 100 95 O2 Delivery Nasal Cannula Room Air O2 Flow Rate 2.0 2.0 11/01/19 11/01/19 11/01/19 11/01/19 19:35 19:45 20:01 21:10 Temp 98.7 98.7 Pulse 84 84 Resp 20 B/P (MAP) 162/87 (112) 162/87 Pulse Ox 98 96 O2 Delivery Nasal Cannula Room Air Room Air O2 Flow Rate 2.0 11/01/19 11/01/19 11/01/19 11/02/19 21:11 22:40 23:43 03:00 Temp 97.7 97.9 97.7 97.9 Pulse 84 63 78 Resp 20 20 B/P (MAP) 162/87 101/59 (73) 165/83 (110) Pulse Ox 98 95 O2 Delivery Room Air Nasal Cannula Room Air O2 Flow Rate 2.0 11/02/19 11/02/19 11/02/19 11/02/19 05:49 06:13 06:49 07:39 Temp 97.4 97.4 Pulse 18 Resp 18 16 B/P (MAP) 166/85 (112) Pulse Ox 94 97 O2 Delivery Room Air Room Air Room Air Room Air Intake and Output 11/01/19 11/01/19 11/02/19 14:59 22:59 06:59 Intake Total 400 ml Output Total 0 ml Balance 0 ml 400 ml Justicifation of Admission Dx: Justifications for Admission: Justification of Admission Dx: No Acute Renal Failure: Serum Cr > 4mg/dL KAROLINE BUSTOS MD Nov 02, 2019 08:52
[2019-11-02] MEDS: FLUTICASONE 50MCG/NASAL SPRAY 16GM BOTTLE. NS SCH (09:00)
[2019-11-02] MEDS: NICOTINE 21MG PATCH. TD SCH (09:00)
--- NOTE | 2019-11-02 09:04 | PDOC ---
Provider Note Provider Note She is off the floor for dialysis. Will see her tomorrow to discuss surgery that can be done on Thursday. Justicifation of Admission Dx: Justifications for Admission: Justification of Admission Dx: No Acute Renal Failure: Serum Cr > 4mg/dL KECIA RIVERA APRN Nov 02, 2019 09:04
[2019-11-02 09:14] LABS: ALBUMIN 2.4 g/dL (3.4-5.0); CALCIUM 8.3 mg/dL (8.5-10.1); CREATININE 4.6 mg/dL (0.6-1.0); GFR 11.6; PHOSPHORUS 3.2 mg/dL (2.6-4.7)
[2019-11-02 09:19] LABS: POTASSIUM 5.2 mmol/L (3.5-5.1)
--- NOTE | 2019-11-02 09:36 | PDOC ---
SUBJECTIVE ROS Initiated on HD 10/31, tolerated well except towards the end had mild cramping 2nd treatment today, . No complaints OBJECTIVE Vital Signs Vital Signs Date Time Temp Pulse Resp B/P (MAP) Pulse Ox O2 Delivery O2 Flow Rate FiO2 11/02/19 07:39 97 Room Air 11/02/19 06:49 16 11/02/19 06:13 97.4 18 166/85 (112) 97.4 11/01/19 23:43 2.0 I & 0 Intake and Output 11/02/19 07:00 Intake Total 400 ml Output Total 0 ml Balance 400 ml Intake Oral 400 ml Output Urine Total 0 ml PHYSICAL EXAM Physical Exam GEN: NAD HEEN: OM moist NECK: supple CVS: S1S2, RESP: decrease at bases, No Acc. Muscle Use GI: BS + ve, Obese : No CVA tenderness, No Suprapubic Tenderness, Neuro No ASterxis Has Tunnelled HDC placed on 10/31 DIAGNOSIS/ASSESSMENT Assessment & Plan New Onset ESRD - Initiated HD 10/31, 2nd treatment today, tolerating well , continue as ordered, Tae Ray Access- Tunneled HDC Per Vascular - left radiocephalic AV fistula on an outpatient basis. We will contact her once we get surgery set up for her and give her all of her information and instruction. This can likely occur next week SW for OP chair time HyperKalemia- mild , HD today Proteinuria- nephrotic range, was advised Renal Bx, Pt didnt do it CKD stage 4 - baseline Cr 2.7-3.0, under DR. mathew's care, Non compliant Renal Cyst- reported on US Several small hypoattenuating cystic lesions within the left kidney largest measuring 2 cm in diameter representing simple cysts. Other smaller lesion measuring approximately 1.2 cm at the lower pole of the left kidney is not completely evaluated on this study. Further evaluation with nonemergent renal protocol CT or MRI is recommended nonemergent/outpatient setting. DM II- HTN- antihypertensives COMMENT/RELEVANT DATA Meds Current Medications Medications (Trade) Dose Ordered Sig/Howard Start Time Stop Time Status Last Admin Dose Admin Acetaminophen/ Hydrocodone Bitart (Lortab 7.5/325) 1 tab PRN Q4HRS PRN 10/29/19 03:00 10/29/19 17:08 DC 10/29/19 09:57 1 TAB Albuterol Sulfate (Ventolin Neb Soln) 2.5 mg Q6HRS 10/29/19 12:00 11/02/19 07:38 2.5 MG Aspirin (Ecotrin) 81 mg DAILYWBKFT 11/02/19 08:00 Budesonide (Pulmicort) 0.5 mg RTBID 10/29/19 08:30 11/02/19 07:38 0.5 MG Cefazolin Sodium (Ancef) 1 gm 1X PRN 11/04/19 11:30 11/05/19 12:51 Cefazolin Sodium/ Dextrose 50 ml @ 100 mls/hr 1X ONCE 11/01/19 11:45 11/01/19 12:14 DC 11/01/19 12:00 100 MLS/HR Dextrose (Dextrose 50%-Water Syringe) 12.5 gm PRN Q15MIN PRN 10/29/19 07:30 Diltiazem HCl (Cardizem 24hr Cd) 240 mg DAILY 10/30/19 09:00 11/01/19 10:16 240 MG Fentanyl Citrate (Fentanyl 2ml Vial) 100 mcg STK-MED ONCE 11/01/19 11:45 11/01/19 13:31 DC Fluticasone Propionate (Flonase) 2 spray DAILY 10/29/19 09:00 11/01/19 10:15 2 SPRAY Heparin Sodium (Porcine) (Heparin Sodium) 5,000 unit Q12HR 10/29/19 09:00 11/01/19 21:19 5,000 UNIT Hydralazine HCl (Apresoline Inj) 5 mg PRN Q6HRS PRN 10/29/19 03:00 10/31/19 04:24 5 MG Hydralazine HCl (Apresoline) 100 mg TID 10/29/19 13:00 11/01/19 21:10 100 MG Info (PHARMACY MONITORING -- do not chart) 1 each PRN DAILY PRN 11/01/19 12:45 Insulin Human Lispro (HumaLOG) 0-7 UNITS QIDACHS 10/29/19 07:30 11/01/19 18:22 3 UNITS Isosorbide Mononitrate (Imdur) 60 mg DAILY 10/29/19 09:00 11/01/19 18:20 60 MG Labetalol HCl (Normodyne Iv Push) 20 mg PRN Q2HR PRN 10/29/19 07:45 10/30/19 07:57 20 MG Labetalol HCl (Trandate) 200 mg BID 10/31/19 21:00 11/01/19 21:11 200 MG Lidocaine/ Epinephrine (LIDOCAINE 1%-EPI 1:100,000 Multi-Dose) 20 ml STK-MED ONCE 11/01/19 11:07 11/01/19 13:31 DC Magnesium Sulfate 50 ml @ 25 mls/hr PRN DAILY PRN 10/29/19 13:00 Midazolam HCl (Versed) 2 mg STK-MED ONCE 11/01/19 11:45 11/01/19 13:31 DC Nicotine (Nicoderm Cq 21mg) 1 patch DAILY 10/29/19 09:00 11/01/19 10:15 1 PATCH Non-Formulary Medication (Fluticasone/ Umeclidin/ Vilanter (Trelegy Ellipta 100-62.5-25)) 1 each BID 10/29/19 09:00 UNV Pantoprazole Sodium (Protonix) 40 mg DAILYAC 10/29/19 08:00 11/01/19 10:17 40 MG Polyethylene Glycol (miraLAX PACKET) 17 gm QHS 10/29/19 21:00 11/01/19 21:09 17 GM Potassium Chloride (Klor-Con) 40 meq BIDWMEALS 10/30/19 08:30 11/01/19 18:20 40 MEQ Prochlorperazine Edisylate (Compazine) 10 mg PRN Q6HRS PRN 10/29/19 17:15 11/01/19 21:13 10 MG Psyllium Hydrophilic Mucilloid (Metamucil Fiber Packet) 1 pkt QHS 10/29/19 21:00 11/01/19 21:09 1 PKT Sodium Chloride 1,000 ml @ 400 mls/hr Q2H30M PRN 11/01/19 12:00 11/01/19 23:59 DC Spironolactone (Aldactone) 25 mg BID 10/29/19 21:00 11/01/19 21:11 25 MG Tramadol HCl (Ultram) 50 mg PRN Q6HRS PRN 10/29/19 17:15 11/02/19 05:49 50 MG Lab Laboratory Tests Test 11/01/19 11:04 11/01/19 17:15 11/01/19 21:09 11/02/19 06:40 Glucose (Fingerstick) 156 mg/dL (70-99) 161 mg/dL (70-99) 108 mg/dL (70-99) Sodium Level 137 mmol/L (136-145) Potassium Level 5.2 mmol/L (3.5-5.1) Chloride Level 102 mmol/L (98-107) Carbon Dioxide Level 25 mmol/L (21-32) Anion Gap 10 (6-14) Blood Urea Nitrogen 28 mg/dL (-20) Creatinine 4.6 mg/dL (0.6-1.0) Estimated GFR (Cockcroft-Gault) 11.6 Glucose Level 194 mg/dL (70-99) Calcium Level 8.3 mg/dL (8.5-10.1) Phosphorus Level 3.2 mg/dL (2.6-4.7) Albumin 2.4 g/dL (3.4-5.0) Test 11/02/19 06:45 11/02/19 08:23 Magnesium Level 1.9 mg/dL (1.8-2.4) Glucose (Fingerstick) 194 mg/dL (70-99) Results All relevant outside records, renal labs, imaging studies, telemetry/EKG's were reviewed. Justicifation of Admission Dx: Justifications for Admission: Justification of Admission Dx: No Acute Renal Failure: Serum Cr > 4mg/dL KAE VELASQUEZ MD Nov 02, 2019 09:36
[2019-11-02] MEDS: LABETALOL HCL 100 MG TABLET. PO SCH ×2 (09:52→20:02)
[2019-11-02] MEDS ORDERED: ACETAMINOPHEN 500 MG TABLET PO PRN (10:00)
[2019-11-02] MEDS ORDERED: DIALYSIS PATIENT. MC PRN ×2 (10:15)
--- NOTE | 2019-11-02 10:24 | PDOC ---
RONNELL PEREZ SANDBLASTER SUPERVISOR 11/02/19 1024: CARDIO Progress Notes Date and Time Date of Service 11/02/19 Time of Evaluation 1020 Subjective Subjective: No Chest Pain, No shortness of breath, No Palpitations Vitals Vitals Vital Signs Date Time Temp Pulse Resp B/P (MAP) Pulse Ox O2 Delivery O2 Flow Rate FiO2 11/02/19 09:54 90 174/100 11/02/19 08:00 Room Air 11/02/19 07:39 97 11/02/19 06:49 16 11/02/19 06:13 97.4 97.4 11/01/19 23:43 2.0 Weight Weight [ ] Input and Output Intake and Output Intake and Output 11/02/19 07:00 Intake Total 400 ml Output Total 0 ml Balance 400 ml Intake Oral 400 ml Output Urine Total 0 ml Laboratory Labs Laboratory Tests Test 11/01/19 11:04 11/01/19 17:15 11/01/19 21:09 11/02/19 06:40 Glucose (Fingerstick) 156 mg/dL (70-99) 161 mg/dL (70-99) 108 mg/dL (70-99) Sodium Level 137 mmol/L (136-145) Potassium Level 5.2 mmol/L (3.5-5.1) Chloride Level 102 mmol/L (98-107) Carbon Dioxide Level 25 mmol/L (21-32) Anion Gap 10 (6-14) Blood Urea Nitrogen 28 mg/dL (-20) Creatinine 4.6 mg/dL (0.6-1.0) Estimated GFR (Cockcroft-Gault) 11.6 Glucose Level 194 mg/dL (70-99) Calcium Level 8.3 mg/dL (8.5-10.1) Phosphorus Level 3.2 mg/dL (2.6-4.7) Albumin 2.4 g/dL (3.4-5.0) Test 11/02/19 06:45 11/02/19 08:23 Magnesium Level 1.9 mg/dL (1.8-2.4) Glucose (Fingerstick) 194 mg/dL (70-99) Microbiology Micro Microbiology 10/31/19 Urine Culture - Final, Complete Physical Exam HEENT: Neck Supple W Full Motion Chest: Symmetric LUNGS: Clear to Auscultation Heart: RRR Abdomen: Soft N/T, Other (obese) Extremities: No Calf Tenderness Neurology: alert, oriented, follow commands Assessment Assessment 1. Hypertensive urgency; BP mildly improved 2. CKD; now ESRD. HD to initiated 10/31 3. Chronic diastolic CHF; appears compensated. Recent echo with preserved LV systolic function 4. Dyslipidemia 5. Diabetes, II 6. Obesity 7. H/o poor compliance 8. Hyperkalemia Recommendations Continue current therapy; monitor trend Fluid offloading via HD Supportive care Justicifation of Admission Dx: Justifications for Admission: Justification of Admission Dx: No Acute Renal Failure: Serum Cr > 4mg/dL VINCE FRIAS MD 11/03/19 1156: CARDIO Progress Notes Plan Plan Late entry for 11/02/2019 Pt. seen and examined. Agree with above QUALITY ASSURANCE TESTER note. HD going well. RONNELL PEREZ APRN Nov 02, 2019 10:24 VINCE FRIAS MD Nov 03, 2019 11:56
[2019-11-02] MEDS: ISOSORBIDE MONONITRATE ER 30 MG TAB.ER.24H PO SCH (11:59)
--- NOTE | 2019-11-02 12:00 | NUR ---
SS following up with discharge planning. Referral was phoned and faxed to [facility], ; fax [phone]. SS currently awaiting insurance approval and confirmed chair time. SS will continue to follow for discharge planning.
[2019-11-02] MEDS: SPIRONOLACTONE 25 MG TABLET PO SCH ×2 (13:05→20:02)
[2019-11-02] MEDS: ASPIRIN ENTERIC COATED 81 MG TABLET.DR. PO SCH (13:05)
[2019-11-02] MEDS: PANTOPRAZOLE 40 MG TABLET.DR. PO SCH (13:05)
[2019-11-02] MEDS: HEPARIN for SUB-Q USE 5,000 UNIT/ML VIAL. SQ SCH ×2 (13:11→20:09)
--- NOTE | 2019-11-02 13:19 | NUR ---
SS following up with discharge planning. SS reviewed pt chart and discussed with pt RN. Pt is currently on room air. Currently awaiting confirmed chair time for dialysis. SS received phone contact from [facility] Admissions with tentative chair time at [facility], ; fax [phone], Thursday, Thursday, and Thursday. [facility] Admissions reported that they would contact SS once confirmed chair time and insurance approval has been received. SS will continue to follow for discharge planning.
[2019-11-02 15:00] VITALS: BP 145/94
[2019-11-02 18:10] LABS: ALPHA 1 UR 4.6 % (.); ALPHA 2 UR 14.8 % (.); BETA UR 23.4 % (.); GAMMA UR 14.3 % (.); PROTEIN 24 UR 11436 mg/24 hr (30-150); PROTEIN UR 1016.5 mg/dL (Not Estab.)
[2019-11-02 20:00] VITALS: BP 176/98
[2019-11-02] MEDS: PSYLLIUM HUSK (SUGAR FREE) 1 PKT PACKET PO SCH (20:02)
[2019-11-02] MEDS: POLYETHYLENE GLYCOL 3350 17 GM PACKET. PO SCH (20:10)
[2019-11-02 22:59] VITALS: BP 154/72
[2019-11-03 03:00] VITALS: BP 168/70
[2019-11-03 04:35] LABS: ALBUMIN 2.4 g/dL (3.4-5.0); CALCIUM 8.8 mg/dL (8.5-10.1); CREATININE 3.5 mg/dL (0.6-1.0); PHOSPHORUS 2.9 mg/dL (2.6-4.7); POTASSIUM 4.8 mmol/L (3.5-5.1)
[2019-11-03 07:15] VITALS: BP 145/84
[2019-11-03] MEDS: INSULIN LISPRO 300 UNITS/3 ML VIAL. SQ SCH ×2 (07:30→11:30)
[2019-11-03] MEDS: BUDESONIDE 0.5 MG/2 ML NEBU. NEB SCH (07:45)
[2019-11-03] MEDS: ALBUTEROL SULFATE 2.5 MG/3 ML NEBU. NEB SCH ×2 (07:45→15:10)
--- NOTE | 2019-11-03 08:20 | PDOC ---
PROGRESS NOTES Chief Complaint Chief Complaint DISCHARGE DX Hypertensive emergency - with JONO, IV labetalol. Cont home meds as well. Consult nephrology and cardiology Elevated troponin - likely from above, will trend. 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 Prn nebs Diabetes-Type II - sliding scale insulin High Cholesterol Hypertension Sleep apnea Gastric ulcers - PPI JONO on Stage 5 CKD Bilateral low-density renal lesions are again seen and incompletely characterized on noncontrast imaging. Couple of these are likely cystic in nature.Further evaluation with nonemergent renal protocol CT or MRI is recommended nonemergent/outpatient setting.Previous imaging studies have shown possible adrenal adenoma Smoker - counseled on cessation, she started smoking again Headache - likely related to HTN, will give compazine PROTEINURIA plan FEN - ADA diet PPX - heparin FULL CODE Dispo - inpatient iv prn hydralazine 10mg q 4 hrs prn bp support dvt prophylaxis IMMUNOFIXATION URINE AND SERUM noted covid-19 screen nephrology following, has chair time tomorrow according to case management today 11/02 PermCath placement 10/31 in interventional radiology. left radiocephalic AV fistula 11/03 34 min pt exam, chart review d/c planning time , > 50% of time spent with exam, chart review, pt care coordination Further evaluation with nonemergent renal protocol CT or MRI is recommended nonemergent/outpatient setting. History of Present Illness History of Present Illness Ms Persaud is a 64yo F w/ PMHx Asthma, Diabetes-Type II, High Cholesterol, Hypertension, sleep apnea, gastric ulcers, Stage 5 CKD, smoker who p/w headache dizziness and elevated blood pressure. 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 Patient states she was started on new blood pressure medications. She admits to taking all her medications but this evening symptoms of headache dizziness continued patient did not feel any better. Patient presents for further evaluation. On arrival patient's blood pressure was greater than 200/100 systolic. Patient was treated with labetalol 20 mg IV push. Patient's blood pressure improved to the 190s systolic, but diastolic remained 119mmHg. Denies any associated chest pain. On further review from previous hospital discharge she was told to restart l osartan hydrochlorothiazide, then was instructed by cardiology to start on appropriate medications, Imdur and hydralazine. However she was instructed by someone at her PCP office to go ahead back on the losartan hydrochlorothiazide. Her primary complaint with me today is actually a headache and she is asking for hydrocodone for this. WBC 9.3, Hb 12.9, platelets 258, NA 140, K3.1, BUN 44, CR 5.2, glucose 112, troponin 0.023 EKG with HR [address] elevation no ST depression no acute AK CXR: No acute changes Admitted for further care Follow nephrology recommendations. Vitals Vitals Vital Signs Date Time Temp Pulse Resp B/P (MAP) Pulse Ox O2 Delivery O2 Flow Rate FiO2 11/03/19 07:47 Room Air 11/03/19 07:15 98.3 89 17 145/84 (104) 100 98.3 11/02/19 23:55 2.0 Physical Exam General: Alert, Oriented X3, Cooperative, No acute distress Heart: Regular rate, Normal S1 Lungs: Clear Abdomen: Normal bowel sounds, Soft, No tenderness, No hepatosplenomegaly, No masses Extremities: No cyanosis, No tenderness/swelling Skin: No rashes, No significant lesion Labs LABS Laboratory Tests Test 11/02/19 08:23 11/02/19 12:22 11/02/19 16:29 11/02/19 20:00 Glucose (Fingerstick) 194 mg/dL (70-99) 122 mg/dL (70-99) 151 mg/dL (70-99) 106 mg/dL (70-99) Test 11/03/19 03:25 11/03/19 07:15 Sodium Level 135 mmol/L (136-145) Potassium Level 4.8 mmol/L (3.5-5.1) Chloride Level 99 mmol/L (98-107) Carbon Dioxide Level 28 mmol/L (21-32) Anion Gap 8 (6-14) Blood Urea Nitrogen 17 mg/dL (7-20) Creatinine 3.5 mg/dL (0.6-1.0) Estimated GFR (Cockcroft-Gault) 16.0 Glucose Level 139 mg/dL (70-99) Calcium Level 8.8 mg/dL (8.5-10.1) Phosphorus Level 2.9 mg/dL (2.6-4.7) Magnesium Level 2.0 mg/dL (1.8-2.4) Albumin 2.4 g/dL (3.4-5.0) Glucose (Fingerstick) 101 mg/dL (70-99) Comment Review of Relevant I have reviewed the following items munir (where applicable) has been applied. Labs Laboratory Tests Test 11/01/19 11:04 11/01/19 17:15 11/01/19 21:09 11/02/19 06:40 Glucose (Fingerstick) 156 mg/dL (70-99) 161 mg/dL (70-99) 108 mg/dL (70-99) Sodium Level 137 mmol/L (136-145) Potassium Level 5.2 mmol/L (3.5-5.1) Chloride Level 102 mmol/L (98-107) Carbon Dioxide Level 25 mmol/L (21-32) Anion Gap 10 (6-14) Blood Urea Nitrogen 28 mg/dL (7-20) Creatinine 4.6 mg/dL (0.6-1.0) Estimated GFR (Cockcroft-Gault) 11.6 Glucose Level 194 mg/dL (70-99) Calcium Level 8.3 mg/dL (8.5-10.1) Phosphorus Level 3.2 mg/dL (2.6-4.7) Albumin 2.4 g/dL (3.4-5.0) Test 11/02/19 06:45 11/02/19 08:23 11/02/19 12:22 11/02/19 16:29 Magnesium Level 1.9 mg/dL (1.8-2.4) Glucose (Fingerstick) 194 mg/dL (70-99) 122 mg/dL (70-99) 151 mg/dL (70-99) Test 11/02/19 20:00 11/03/19 03:25 11/03/19 07:15 Glucose (Fingerstick) 106 mg/dL (70-99) 101 mg/dL (70-99) Sodium Level 135 mmol/L (136-145) Potassium Level 4.8 mmol/L (3.5-5.1) Chloride Level 99 mmol/L (98-107) Carbon Dioxide Level 28 mmol/L (21-32) Anion Gap 8 (6-14) Blood Urea Nitrogen 17 mg/dL (7-20) Creatinine 3.5 mg/dL (0.6-1.0) Estimated GFR (Cockcroft-Gault) 16.0 Glucose Level 139 mg/dL (70-99) Calcium Level 8.8 mg/dL (8.5-10.1) Phosphorus Level 2.9 mg/dL (2.6-4.7) Magnesium Level 2.0 mg/dL (1.8-2.4) Albumin 2.4 g/dL (3.4-5.0) Laboratory Tests Test 11/02/19 08:23 11/02/19 12:22 11/02/19 16:29 11/02/19 20:00 Glucose (Fingerstick) 194 mg/dL (70-99) 122 mg/dL (70-99) 151 mg/dL (70-99) 106 mg/dL (70-99) Test 11/03/19 03:25 11/03/19 07:15 Sodium Level 135 mmol/L (136-145) Potassium Level 4.8 mmol/L (3.5-5.1) Chloride Level 99 mmol/L (98-107) Carbon Dioxide Level 28 mmol/L (21-32) Anion Gap 8 (6-14) Blood Urea Nitrogen 17 mg/dL (7-20) Creatinine 3.5 mg/dL (0.6-1.0) Estimated GFR (Cockcroft-Gault) 16.0 Glucose Level 139 mg/dL (70-99) Calcium Level 8.8 mg/dL (8.5-10.1) Phosphorus Level 2.9 mg/dL (2.6-4.7) Magnesium Level 2.0 mg/dL (1.8-2.4) Albumin 2.4 g/dL (3.4-5.0) Glucose (Fingerstick) 101 mg/dL (70-99) Microbiology 10/31/19 Urine Culture - Final, Complete Medications Current Medications Labetalol HCl (Normodyne Iv Push) 20 mg 1X ONCE IVP Last administered on 10/28/19at 22:49; Start 10/28/19 at 22:30; Stop 10/28/19 at 22:31; Status DC Acetaminophen/ Hydrocodone Bitart (Lortab 7.5/325) 1 tab PRN Q4HRS PRN PO PAIN Last administered on 10/29/19at 09:57; Start 10/29/19 at 03:00; Stop 10/29/19 at 17:08; Status DC Hydralazine HCl (Apresoline Inj) 5 mg 1X ONCE IVP Last administered on 10/29/19at 03:09; Start 10/29/19 at 03:00; Stop 10/29/19 at 03:04; Status DC Hydralazine HCl (Apresoline Inj) 5 mg PRN Q6HRS PRN IVP ELEVATED BP, 1st CHOICE Last administered on 10/31/19at 04:24; Start 10/29/19 at 03:00 Insulin Human Lispro (HumaLOG) 0-7 UNITS QIDACHS SQ Last administered on 11/02/19at 17:41; Start 10/29/19 at 07:30 Dextrose (Dextrose 50%-Water Syringe) 12.5 gm PRN Q15MIN PRN IV SEE COMMENTS; Start 10/29/19 at 07:30 Labetalol HCl (Normodyne Iv Push) 20 mg PRN Q2HR PRN IVP HYPERTENSION, 1st CHOICE Last administered on 10/30/19at 07:57; Start 10/29/19 at 07:45 Fluticasone Propionate (Flonase) 2 spray DAILY NS Last administered on 11/01/19at 10:15; Start 10/29/19 at 09:00 Hydralazine HCl (Apresoline) 50 mg BID PO Last administered on 10/29/19at 09:43; Start 10/29/19 at 09:00; Stop 10/29/19 at 12:55; Status DC Pantoprazole Sodium (Protonix) 40 mg DAILYAC PO Last administered on 11/02/19at 13:05; Start 10/29/19 at 08:00 Non-Formulary Medication (Fluticasone/ Umeclidin/ Vilanter (Trelegy Ellipta 100-62.5-25)) 1 each BID IH ; Start 10/29/19 at 09:00; Status UNV Isosorbide Mononitrate (Imdur) 60 mg DAILY PO Last administered on 11/02/19at 11:59; Start 10/29/19 at 09:00 Nicotine (Nicoderm Cq 21mg) 1 patch DAILY TD Last administered on 11/01/19at 10:15; Start 10/29/19 at 09:00 Heparin Sodium (Porcine) (Heparin Sodium) 5,000 unit Q12HR SQ Last administered on 11/02/19 20:09; Start 10/29/19 at 09:00 Albuterol Sulfate (Ventolin Neb Soln) 2.5 mg Q6HRS NEB Last administered on 11/03/19 07:45; Start 10/29/19 at 12:00 Budesonide (Pulmicort) 0.5 mg RTBID NEB Last administered on 11/03/19at 07:45; Start 10/29/19 at 08:30 Hydralazine HCl (Apresoline) 100 mg TID PO Last administered on 11/02/19 20:03; Start 10/29/19 at 13:00 Magnesium Sulfate 50 ml @ 25 mls/hr PRN DAILY PRN IV for Mag < 1.7 on am labs; Start 10/29/19 at 13:00 Spironolactone (Aldactone) 25 mg BID PO Last administered on 11/02/19at 20:02; Start 10/29/19 at 21:00 Potassium Chloride (Klor-Con) 40 meq QID PO Last administered on 10/29/19 17:30; Start 10/29/19 at 13:00; Stop 10/29/19 at 17:01; Status DC Prochlorperazine Edisylate (Compazine) 10 mg PRN Q6HRS PRN IV HUANG/NAUSEA/VOM ITING Last administered on 11/01/19 21:13; Start 10/29/19 at 17:15 Tramadol HCl (Ultram) 50 mg PRN Q6HRS PRN PO PAIN Last administered on 11/02/19 20:03; Start 10/29/19 at 17:15 Psyllium Hydrophilic Mucilloid (Metamucil Fiber Packet) 1 pkt QHS PO Last administered on 11/02/19 20:02; Start 10/29/19 at 21:00 Polyethylene Glycol (miraLAX PACKET) 17 gm QHS PO Last administered on 11/01/19 21:09; Start 10/29/19 at 21:00 Diltiazem HCl (Cardizem 24hr Cd) 240 mg DAILY PO Last administered on 11/02/19at 09:54; Start 10/30/19 at 09:00 Potassium Chloride (Klor-Con) 40 meq BIDWMEALS PO Last administered on 11/01/19at 18:20; Start 10/30/19 at 08:30 Labetalol HCl (Trandate) 100 mg BID PO Last administered on 10/31/19at 08:51; Start 10/30/19 at 10:30; Stop 10/31/19 at 15:26; Status DC Labetalol HCl (Trandate) 200 mg BID PO Last administered on 11/02/19at 09:52; Start 10/31/19 at 21:00; Stop 11/02/19 at 15:56; Status DC Aspirin (Ecotrin) 81 mg DAILYWBKFT PO Last administered on 11/02/19at 13:05; Start 11/02/19 at 08:00 Midazolam HCl (Versed) 2 mg 1X ONCE IV Last administered on 11/01/19at 12:03; Start 11/01/19 at 11:30; Stop 11/01/19 at 11:33; Status DC Fentanyl Citrate (Fentanyl 2ml Vial) 100 mcg 1X ONCE IV Last administered on 11/01/19at 12:03; Start 11/01/19 at 11:30; Stop 11/01/19 at 11:33; Status DC Lidocaine/ Epinephrine (LIDOCAINE 1%-EPI 1:100,000 Multi-Dose) 20 ml 1X ONCE SQ Last administered on 11/01/19at 12:05; Start 11/01/19 at 11:30; Stop 11/01/19 at 11:33; Status DC Cefazolin Sodium (Ancef) 2 gm 1X ONCE IVP ; Start 11/01/19 at 12:00; Stop 11/01/19 at 12:01; Status UNV Cefazolin Sodium/ Dextrose 50 ml @ 100 mls/hr 1X ONCE IV Last administered on 11/01/19at 12:00; Start 11/01/19 at 11:45; Stop 11/01/19 at 12:14; Status DC Cefazolin Sodium (Ancef) 1 gm 1X PRN IVP PRIOR TO PROCEDURE; Start 11/04/19 at 11:30; Stop 11/04/19 at 18:00 Sodium Chloride 1,000 ml @ 1,000 mls/hr Q1H PRN IV hypotension; Start 11/01/19 at 12:00; Stop 11/01/19 at 17:59; Status DC Sodium Chloride 1,000 ml @ 400 mls/hr Q2H30M PRN IV PATENCY; Start 11/01/19 at 12:00; Stop 11/01/19 at 23:59; Status DC Info (PHARMACY MONITORING -- do not chart) 1 each PRN DAILY PRN MC SEE COMMENTS; Start 11/01/19 at 12:45; Status UNV Info (PHARMACY MONITORING -- do not chart) 1 each PRN DAILY PRN MC SEE COMMENTS; Start 11/01/19 at 12:45 Lidocaine/ Epinephrine (LIDOCAINE 1%-EPI 1:100,000 Multi-Dose) 20 ml STK-MED ONCE .ROUTE ; Start 11/01/19 at 11:07; Stop 11/01/19 at 13:31; Status DC Midazolam HCl (Versed) 2 mg STK-MED ONCE .ROUTE ; Start 11/01/19 at 11:45; Stop 11/01/19 at 13:31; Status DC Fentanyl Citrate (Fentanyl 2ml Vial) 100 mcg STK-MED ONCE .ROUTE ; Start 10/31 at 11:45; Stop 11/01/19 at 13:31; Status DC Acetaminophen (Tylenol) 500 mg 1X PRN PRN PO MILD PAIN / TEMP > 100.3'F Last a dministered on 11/02/19at 09:59; Start 11/02/19 at 10:00; Stop 11/02/19 at 18:11; Status DC Sodium Chloride 1,000 ml @ 1,000 mls/hr Q1H PRN IV hypotension; Start 11/02/19 at 08:00; Stop 11/02/19 at 13:59; Status DC Sodium Chloride 1,000 ml @ 400 mls/hr Q2H30M PRN IV PATENCY; Start 11/02/19 at 08:00; Stop 11/02/19 at 19:59; Status DC Info (PHARMACY MONITORING -- do not chart) 1 each PRN DAILY PRN MC SEE COMMENTS; Start 11/02/19 at 10:15; Status Cancel Info (PHARMACY MONITORING -- do not chart) 1 each PRN DAILY PRN MC SEE COMMENTS; Start 11/02/19 at 10:15; Status UNV Labetalol HCl (Trandate) 300 mg BID PO Last administered on 11/02/19at 20:02; Start 11/02/19 at 21:00 Active Scripts Active Humalog (Insulin Lispro) 100 Unit/1 Ml Insuln.pen 0 Units SQ TIDWMEALS 30 Days Fluticasone Propionate Nasal Chilo (Fluticasone Propionate) 16 Gm Chilo.susp 2 Chilo NS DAILY 30 Days [Nicotine 21MG] 1 PATCH Patch 1 Patch TD DAILY 30 Days Reported Hydralazine Hcl 50 Mg Tablet 1 Tab PO BID Hydrocodone-Acetamin 7.5-325 (Hydrocodone/Acetaminophen) 1 Each Tablet 1 Each PO PRN Q6HRS PRN Isosorbide Mononitrate Er (Isosorbide Mononitrate) 60 Mg Tab.er.24h 60 Mg PO BID Furosemide 40 Mg Tablet 40 Mg PO DAILY Protonix (Pantoprazole Sodium) 40 Mg Tablet.dr 40 Mg PO DAILYAC Trelegy Ellipta 100-62.5-25 (Fluticasone/Umeclidin/Vilanter) 1 Each Blst.w.dev 1 Each IH BID Albuterol Sulfate Hfa Inhaler (Albuterol Sulfate) 8.5 Gm Hfa.aer.ad 8.5 Gm IH Vitals/I & O Vital Sign - Last 24 Hours 11/02/19 11/02/19 11/02/19 11/02/19 09:52 09:53 09:54 11:59 Pulse 90 90 90 78 B/P (MAP) 174/100 174/100 174/100 151/79 11/02/19 11/02/19 11/02/19 11/02/19 13:05 14:05 14:53 15:00 Temp 98.2 98.2 Pulse 90 90 Resp 18 18 18 B/P (MAP) 175/102 145/94 (111) Pulse Ox 95 O2 Delivery Room Air Room Air 11/02/19 11/02/19 11/02/19 11/02/19 20:00 20:00 20:02 20:03 Temp 98.4 98.4 Pulse 90 90 90 Resp 18 B/P (MAP) 176/98 (124) 145/94 145/94 Pulse Ox 97 O2 Delivery Room Air 11/02/19 11/02/19 11/02/19 11/02/19 20:03 20:31 20:33 22:59 Temp 98.9 98.9 Pulse 67 Resp 16 20 B/P (MAP) 154/72 (99) Pulse Ox 98 98 95 O2 Delivery Room Air Room Air Room Air Room Air 11/02/19 11/03/19 11/03/19 11/03/19 23:55 03:00 07:15 07:47 Temp 98.7 98.3 98.7 98.3 Pulse 82 89 Resp 18 17 B/P (MAP) 168/70 (102) 145/84 (104) Pulse Ox 98 96 100 O2 Delivery Nasal Cannula Room Air Room Air Room Air O2 Flow Rate 2.0 Intake and Output 11/02/19 11/02/19 11/03/19 15:00 23:00 07:00 Intake Total 300 ml 150 ml 0 ml Balance 300 ml 150 ml 0 ml Justicifation of Admission Dx: Justifications for Admission: Justification of Admission Dx: No Acute Renal Failure: Serum Cr > 4mg/dL KAROLINE BUSTOS MD Nov 03, 2019 08:20
[2019-11-03] MEDS: NICOTINE 21MG PATCH. TD SCH (09:00)
[2019-11-03] MEDS: ASPIRIN ENTERIC COATED 81 MG TABLET.DR. PO SCH (09:02)
[2019-11-03] MEDS: POTASSIUM CHLORIDE 20 MEQ TABLET.ER. PO SCH (09:03)
[2019-11-03] MEDS: LABETALOL HCL 100 MG TABLET. PO SCH (09:03)
[2019-11-03] MEDS: PANTOPRAZOLE 40 MG TABLET.DR. PO SCH (09:04)
[2019-11-03] MEDS: ISOSORBIDE MONONITRATE ER 30 MG TAB.ER.24H PO SCH (09:04)
[2019-11-03] MEDS: SPIRONOLACTONE 25 MG TABLET PO SCH (09:05)
[2019-11-03] MEDS: FLUTICASONE 50MCG/NASAL SPRAY 16GM BOTTLE. NS SCH (09:05)
[2019-11-03] MEDS: HEPARIN for SUB-Q USE 5,000 UNIT/ML VIAL. SQ SCH (09:09)
--- NOTE | 2019-11-03 09:45 | NUR ---
SS following up with discharge planning. SS reviewed pt chart and discussed with pt RN. Pt is currently on room air. SS received notification from [facility], ; fax [phone], with confirmed chair time at [address] [address], ; fax [phone], Thursday, Thursday, and Thursday at 1300. Pt to arrive for first chair time on 11/04/2019 at 1430. PT recommended [facility]. Pt is medicaid and has no [facility] benefits. SS met with pt to discuss discharge planning. Pt declined the need for inpatient rehabilitation and declined home healthcare. Pt stated that her daughters and son will help her and provide for her needs. Pt wanting to discharge to home. Pt's RN and physician notified. SS will continue to follow for discharge planning.
--- NOTE | 2019-11-03 10:07 | PDOC3 ---
Discharge Summary Date of Admission: Oct 29, 2019 Date of Discharge: Nov 03, 2019 Follow-Up: 1-2 days Admitting Diagnosis comment: DISCHARGE DX Hypertensive emergency - with JONO, IV labetalol. Cont home meds as well. Consult nephrology and cardiology Elevated troponin - likely from above, will trend. Asthma with COPD - jail smoker. Prn nebs Diabetes-Type II - sliding scale insulin High Cholesterol Hypertension Sleep apnea Gastric ulcers - PPI JONO on Stage 5 CKD Bilateral low-density renal lesions are again seen and incompletely characterized on noncontrast imaging. Couple of these are likely cystic in nature.Further evaluation with nonemergent renal protocol CT or MRI is recommended nonemergent/outpatient setting.Previous imaging studies have shown possible adrenal adenoma Smoker - counseled on cessation, she started smoking again Headache - likely related to HTN, will give compazine PROTEINURIA plan FEN - ADA diet PPX - heparin FULL CODE Dispo - inpatient iv prn hydralazine 10mg q 4 hrs prn bp support dvt prophylaxis IMMUNOFIXATION URINE AND SERUM noted covid-19 screen nephrology following, has chair time tomorrow according to case management today 11/02 PermCath placement 10/31 in interventional radiology. left radiocephalic AV fistula 11/03 34 min pt exam, chart review d/c planning time , > 50% of time spent with exam, chart review, pt care coordination Further evaluation with nonemergent renal protocol CT or MRI is recommended nonemergent/outpatient setting. History of Present Illness History of Present Illness Ms Persaud is a 64yo F w/ PMHx Asthma, Diabetes-Type II, High Cholesterol, Hype rtension, sleep apnea, gastric ulcers, Stage 5 CKD, smoker who p/w headache dizziness and elevated blood pressure. Patient states she saw her principal statistical scientist today blood pressure was severely elevated at that time. Patient states she was started on new blood pressure medications. She admits to taking all her medications but this evening symptoms of headache dizziness continued patient did not feel any better. Patient presents for further evaluation. On arrival patient's blood pressure was greater than 200/100 systolic. Patient was treated with labetalol 20 mg IV push. Patient's blood pressure improved to the 190s systolic, but diastolic remained 119mmHg. Denies any associated chest pain. On further review from previous hospital discharge she was told to restart losartan hydrochlorothiazide, then was instructed by cardiology to start on appropriate medications, Imdur and hydralazine. However she was instructed by someone at her PCP office to go ahead back on the losartan hydrochlorothiazide. Her primary complaint with me today is actually a headache and she is asking for hydrocodone for this. WBC 9.3, Hb 12.9, platelets 258, NA 140, K3.1, BUN 44, CR 5.2, glucose 112, troponin 0.023 EKG with HR [address] elevation no ST depression no acute SC CXR: No acute changes Admitted for further care Follow nephrology recommendations. Vitals Vitals Vital Signs Date Time Temp Pulse Resp B/P (MAP) Pulse Ox O2 Delivery O2 Flow Rate FiO2 11/03/19 07:47 Room Air 11/03/19 07:15 98.3 89 17 145/84 (104) 100 98.3 11/02/19 23:55 2.0 Physical Exam General: Alert, Oriented X3, Cooperative, No acute distress Heart: Regular rate, Normal S1 Lungs: Clear Abdomen: Normal bowel sounds, Soft, No tenderness, No hepatosplenomegaly, No masses Extremities: No cyanosis, No tenderness/swelling Skin: No rashes, No significant lesion Brief Hospital Course Ms. Persaud is a 64 old [sex] who presented with [ RENAL FAILURE, MALIGNANT HYPERTENSION] CONDITION AT DISCHARGE: Improved Discharge Medications Current Medications Labetalol HCl (Normodyne Iv Push) 20 mg 1X ONCE IVP Last administered on 10/28/19at 22:49; Start 10/28/19 at 22:30; Stop 10/28/19 at 22:31; Status DC Acetaminophen/ Hydrocodone Bitart (Lortab 7.5/325) 1 tab PRN Q4HRS PRN PO PAIN Last administered on 10/29/19at 09:57; Start 10/29/19 at 03:00; Stop 10/29/19 at 17:08; Status DC Hydralazine HCl (Apresoline Inj) 5 mg 1X ONCE IVP Last administered on 10/29/19at 03:09; Start 10/29/19 at 03:00; Stop 10/29/19 at 03:04; Status DC Hydralazine HCl (Apresoline Inj) 5 mg PRN Q6HRS PRN IVP ELEVATED BP, 1st CHOICE Last administered on 10/31/19at 04:24; Start 10/29/19 at 03:00 Insulin Human Lispro (HumaLOG) 0-7 UNITS QIDACHS SQ Last administered on 11/02/19at 17:41; Start 10/29/19 at 07:30 Dextrose (Dextrose 50%-Water Syringe) 12.5 gm PRN Q15MIN PRN IV SEE COMMENTS; Start 10/29/19 at 07:30 Labetalol HCl (Normodyne Iv Push) 20 mg PRN Q2HR PRN IVP HYPERTENSION, 1st CHOICE Last administered on 10/30/19at 07:57; Start 10/29/19 at 07:45 Fluticasone Propionate (Flonase) 2 spray DAILY NS Last administered on 11/03/19 09:05; Start 10/29/19 at 09:00 Hydralazine HCl (Apresoline) 50 mg BID PO Last administered on 10/29/19at 09:43; Start 10/29/19 at 09:00; Stop 10/29/19 at 12:55; Status DC Pantoprazole Sodium (Protonix) 40 mg DAILYAC PO Last administered on 11/03/19 09:04; Start 10/29/19 at 08:00 Non-Formulary Medication (Fluticasone/ Umeclidin/ Vilanter (Trelegy Ellipta 100-62.5-25)) 1 each BID IH ; Start 10/29/19 at 09:00; Status UNV Isosorbide Mononitrate (Imdur) 60 mg DAILY PO Last administered on 11/03/19at 09:04; Start 10/29/19 at 09:00 Nicotine (Nicoderm Cq 21mg) 1 patch DAILY TD Last administered on 11/01/19at 10:15; Start 10/29/19 at 09:00 Heparin Sodium (Porcine) (Heparin Sodium) 5,000 unit Q12HR SQ Last administered on 11/03/19at 09:09; Start 10/29/19 at 09:00 Albuterol Sulfate (Ventolin Neb Soln) 2.5 mg Q6HRS NEB Last administered on 11/03/19at 07:45; Start 10/29/19 at 12:00 Budesonide (Pulmicort) 0.5 mg RTBID NEB Last administered on 11/03/19 07:45; Start 10/29/19 at 08:30 Hydralazine HCl (Apresoline) 100 mg TID PO Last administered on 11/03/19 09:02; Start 10/29/19 at 13:00 Magnesium Sulfate 50 ml @ 25 mls/hr PRN DAILY PRN IV for Mag < 1.7 on am labs; Start 10/29/19 at 13:00 Spironolactone (Aldactone) 25 mg BID PO Last administered on 11/03/19at 09:05; Start 10/29/19 at 21:00 Potassium Chloride (Klor-Con) 40 meq QID PO Last administered on 10/29/19 17:30; Start 10/29/19 at 13:00; Stop 10/29/19 at 17:01; Status DC Prochlorperazine Edisylate (Compazine) 10 mg PRN Q6HRS PRN IV HUANG/NAUSEA/VOMITING Last administered on 11/01/19at 21:13; Start 10/29/19 at 17:15 Tramadol HCl (Ultram) 50 mg PRN Q6HRS PRN PO PAIN Last administered on 20:03; Start 10/29/19 at 17:15 Psyllium Hydrophilic Mucilloid (Metamucil Fiber Packet) 1 pkt QHS PO Last administered on 11/02/19at 20:02; Start 10/29/19 at 21:00 Polyethylene Glycol (miraLAX PACKET) 17 gm QHS PO Last administered on 11/01/19at 21:09; Start 10/29/19 at 21:00 Diltiazem HCl (Cardizem 24hr Cd) 240 mg DAILY PO Last administered on 11/03/19 09:03; Start 10/30/19 at 09:00 Potassium Chloride (Klor-Con) 40 meq BIDWMEALS PO Last administered on 11/03/19 09:03; Start 10/30/19 at 08:30 Labetalol HCl (Trandate) 100 mg BID PO Last administered on 10/31/19at 08:51; Start 10/30/19 at 10:30; Stop 10/31/19 at 15:26; Status DC Labetalol HCl (Trandate) 200 mg BID PO Last administered on 11/02/19at 09:52; Start 10/31/19 at 21:00; Stop 11/02/19 at 15:56; Status DC Aspirin (Ecotrin) 81 mg DAILYWBKFT PO Last administered on 11/03/19at 09:02; Start 11/02/19 at 08:00 Midazolam HCl (Versed) 2 mg 1X ONCE IV Last administered on 11/01/19at 12:03; Start 11/01/19 at 11:30; Stop 11/01/19 at 11:33; Status DC Fentanyl Citrate (Fentanyl 2ml Vial) 100 mcg 1X ONCE IV Last administered on 11/01/19at 12:03; Start 11/01/19 at 11:30; Stop 11/01/19 at 11:33; Status DC Lidocaine/ Epinephrine (LIDOCAINE 1%-EPI 1:100,000 Multi-Dose) 20 ml 1X ONCE SQ Last administered on 11/01/19at 12:05; Start 11/01/19 at 11:30; Stop 11/01/19 at 11:33; Status DC Cefazolin Sodium (Ancef) 2 gm 1X ONCE IVP ; Start 11/01/19 at 12:00; Stop 11/01/19 at 12:01; Status UNV Cefazolin Sodium/ Dextrose 50 ml @ 100 mls/hr 1X ONCE IV Last administered on 11/01/19at 12:00; Start 11/01/19 at 11:45; Stop 11/01/19 at 12:14; Status DC Cefazolin Sodium (Ancef) 1 gm 1X PRN IVP PRIOR TO PROCEDURE; Start 11/04/19 at 11:30; Stop 11/03/19 at 08:39; Status DC Sodium Chloride 1,000 ml @ 1,000 mls/hr Q1H PRN IV hypotension; Start 11/01/19 at 12:00; Stop 11/01/19 at 17:59; Status DC Sodium Chloride 1,000 ml @ 400 mls/hr Q2H30M PRN IV PATENCY; Start 11/01/19 at 12:00; Stop 11/01/19 at 23:59; Status DC Info (PHARMACY MONITORING -- do not chart) 1 each PRN DAILY PRN MC SEE COMMENTS; Start 11/01/19 at 12:45; Status UNV Info (PHARMACY MONITORING -- do not chart) 1 each PRN DAILY PRN MC SEE COMMENTS; Start 11/01/19 at 12:45 Lidocaine/ Epinephrine (LIDOCAINE 1%-EPI 1:100,000 Multi-Dose) 20 ml STK-MED ONCE .ROUTE ; Start 11/01/19 at 11:07; Stop 11/01/19 at 13:31; Status DC Midazolam HCl (Versed) 2 mg STK-MED ONCE .ROUTE ; Start 11/01/19 at 11:45; Stop 11/01/19 at 13:31; Status DC Fentanyl Citrate (Fentanyl 2ml Vial) 100 mcg STK-MED ONCE .ROUTE ; Start 0 at 11:45; Stop 11/01/19 at 13:31; Status DC Acetaminophen (Tylenol) 500 mg 1X PRN PRN PO MILD PAIN / TEMP > 100.3'F Last administered on 11/02/19at 09:59; Start 11/02/19 at 10:00; Stop 11/02/19 at 18:11; Status DC Sodium Chloride 1,000 ml @ 1,000 mls/hr Q1H PRN IV hypotension; Start 11/02/19 at 08:00; Stop 11/02/19 at 13:59; Status DC Sodium Chloride 1,000 ml @ 400 mls/hr Q2H30M PRN IV PATENCY; Start 11/02/19 at 08:00; Stop 11/02/19 at 19:59; Status DC Info (PHARMACY MONITORING -- do not chart) 1 each PRN DAILY PRN MC SEE COMMENTS; Start 11/02/19 at 10:15; Status Cancel Info (PHARMACY MONITORING -- do not chart) 1 each PRN DAILY PRN MC SEE COMMENTS; Start 11/02/19 at 10:15; Status UNV Labetalol HCl (Trandate) 300 mg BID PO Last administered on 11/03/19at 09:03; Start 11/02/19 at 21:00 Active Scripts Active Humalog (Insulin Lispro) 100 Unit/1 Ml Insuln.pen 0 Units SQ TIDWMEALS 30 Days Fluticasone Propionate Nasal [place] (Fluticasone Propionate) 16 Gm [place].susp 2 [place] NS DAILY 30 Days [Nicotine 21MG] 1 PATCH Patch 1 Patch TD DAILY 30 Days Reported Hydralazine Hcl 50 Mg Tablet 1 Tab PO BID Hydrocodone-Acetamin 7.5-325 (Hydrocodone/Acetaminophen) 1 Each Tablet 1 Each PO PRN Q6HRS PRN Isosorbide Mononitrate Er (Isosorbide Mononitrate) 60 Mg Tab.er.24h 60 Mg PO BID Furosemide 40 Mg Tablet 40 Mg PO DAILY Protonix (Pantoprazole Sodium) 40 Mg Tablet.dr 40 Mg PO DAILYAC Trelegy Ellipta 100-62.5-25 (Fluticasone/Umeclidin/Vilanter) 1 Each Blst.w.dev 1 Each IH BID Albuterol Sulfate Hfa Inhaler (Albuterol Sulfate) 8.5 Gm Hfa.aer.ad 8.5 Gm IH Vital Signs Vital Signs Date Time Temp Pulse Resp B/P (MAP) Pulse Ox O2 Delivery O2 Flow Rate FiO2 11/03/19 09:04 89 145/84 11/03/19 07:47 Room Air 11/03/19 07:15 98.3 17 100 98.3 11/02/19 23:55 2.0 Labs Laboratory Tests Test 11/01/19 11:04 11/01/19 17:15 11/01/19 21:09 11/02/19 06:40 Glucose (Fingerstick) 156 mg/dL (70-99) 161 mg/dL (70-99) 108 mg/dL (70-99) Sodium Level 137 mmol/L (136-145) Potassium Level 5.2 mmol/L (3.5-5.1) Chloride Level 102 mmol/L (98-107) Carbon Dioxide Level 25 mmol/L (21-32) Anion Gap 10 (6-14) Blood Urea Nitrogen 28 mg/dL (-20) Creatinine 4.6 mg/dL (0.6-1.0) Estimated GFR (Cockcroft-Gault) 11.6 Glucose Level 194 mg/dL (70-99) Calcium Level 8.3 mg/dL (8.5-10.1) Phosphorus Level 3.2 mg/dL (2.6-4.7) Albumin 2.4 g/dL (3.4-5.0) Test 11/02/19 06:45 11/02/19 08:23 11/02/19 12:22 11/02/19 16:29 Magnesium Level 1.9 mg/dL (1.8-2.4) Glucose (Fingerstick) 194 mg/dL (70-99) 122 mg/dL (70-99) 151 mg/dL (70-99) Test 11/02/19 20:00 11/03/19 03:25 11/03/19 07:15 Glucose (Fingerstick) 106 mg/dL (70-99) 101 mg/dL (70-99) Sodium Level 135 mmol/L (136-145) Potassium Level 4.8 mmol/L (3.5-5.1) Chloride Level 99 mmol/L (98-107) Carbon Dioxide Level 28 mmol/L (21-32) Anion Gap 8 (6-14) Blood Urea Nitrogen 17 mg/dL (7-20) Creatinine 3.5 mg/dL (0.6-1.0) Estimated GFR (Cockcroft-Gault) 16.0 Glucose Level 139 mg/dL (70-99) Calcium Level 8.8 mg/dL (8.5-10.1) Phosphorus Level 2.9 mg/dL (2.6-4.7) Magnesium Level 2.0 mg/dL (1.8-2.4) Albumin 2.4 g/dL (3.4-5.0) Laboratory Tests Test 11/02/19 12:22 11/02/19 16:29 11/02/19 20:00 11/03/19 03:25 Glucose (Fingerstick) 122 mg/dL (70-99) 151 mg/dL (70-99) 106 mg/dL (70-99) Sodium Level 135 mmol/L (136-145) Potassium Level 4.8 mmol/L (3.5-5.1) Chloride Level 99 mmol/L (98-107) Carbon Dioxide Level 28 mmol/L (21-32) Anion Gap 8 (6-14) Blood Urea Nitrogen 17 mg/dL (7-20) Creatinine 3.5 mg/dL (0.6-1.0) Estimated GFR (Cockcroft-Gault) 16.0 Glucose Level 139 mg/dL (70-99) Calcium Level 8.8 mg/dL (8.5-10.1) Phosphorus Level 2.9 mg/dL (2.6-4.7) Magnesium Level 2.0 mg/dL (1.8-2.4) Albumin 2.4 g/dL (3.4-5.0) Test 11/03/19 07:15 Glucose (Fingerstick) 101 mg/dL (70-99) Allergies Allergies Coded Allergies Type Severity Reaction Last Updated Verified No Known Drug Allergies 07/27/18 No Disposition/Orders: D/C to Home w/ HH Justicifation of Admission Dx: Justifications for Admission: Justification of Admission Dx: No Acute Renal Failure: Serum Cr > 4mg/dL KAROLINE BUSTOS MD Nov 03, 2019 10:07
[2019-11-03] MEDS ORDERED: ASPI-886 PO (10:12)
[2019-11-03] MEDS ORDERED: SPIR25TA PO (10:12)
[2019-11-03] MEDS ORDERED: HYDR-2869 PO (10:12)
[2019-11-03] MEDS ORDERED: POLY17PO28 PO (10:12)
[2019-11-03] MEDS ORDERED: DILT240C33 PO (10:12)
[2019-11-03] MEDS ORDERED: LABE100T5 PO (10:12)
--- NOTE | 2019-11-03 10:13 | DISCH ---
DISCHARGE INSTRUCTIONS Condition on Discharge Condition on Discharge: Stable Activity After Discharge Activity Instructions for Disc: Resume previous activity, Activity as tolerated Lifting Instructions after Dis: No heavy lifting Exercise Instruction after Dis: Progress as tolerated Driving Instructions after Dis: Do not drive today Weight Bearing Status after Di: Full weight bearing, As tolerated Diet after Discharge Diet after Discharge: Renal Dialysis, Diabetic No Calorie Level Diet Texture: Regular Liquid Texture: Thin Liquid Swallowing Supervision: None needed Wound Incision Care Wound/Incision Care: No wound care needed Checks after Discharge Checks after discharge: Check blood press - daily, Check blood sugar, ac/hs Contacting the DR. after DC Call your doctor for: If your condition worsens Treatment/Equipment after DC Adaptive Equipment Issued: None KAROLINE BUSTOS MD Nov 03, 2019 10:13
--- NOTE | 2019-11-03 10:55 | PDOC ---
SUBJECTIVE ROS States feeling better Plan to dc today OBJECTIVE Vital Signs Vital Signs Date Time Temp Pulse Resp B/P (MAP) Pulse Ox O2 Delivery O2 Flow Rate FiO2 11/03/19 09:04 89 145/84 11/03/19 08:00 Room Air 11/03/19 07:15 98.3 17 100 98.3 11/02/19 23:55 2.0 I & 0 Intake and Output 11/03/19 07:00 Intake Total 450 ml Balance 450 ml Intake Oral 450 ml PHYSICAL EXAM Physical Exam GEN: NAD HEEN: OM moist NECK: supple CVS: S1S2, RESP: decrease at bases, No Acc. Muscle Use GI: BS + ve, Obese : No CVA tenderness, No Suprapubic Tenderness, Neuro No ASterxis Has Tunnelled HDC placed on 10/31 DIAGNOSIS/ASSESSMENT Assessment & Plan New Onset ESRD - Initiated HD 10/31, 2nd treatment 11/01 tolerated well, OP chair time scheduled for MWF starting tomorrow Access- Tunneled HDC Per Vascular - left radiocephalic AV fistula on an outpatient basis - next week HyperKalemia- resolved Proteinuria- nephrotic range, was advised Renal Bx, Pt didnt do it Now on Dialysis CKD stage 4 - baseline Cr 2.7-3.0, under Dr. Stern's care, Non compliant Renal Cyst- reported on US Several small hypoattenuating cystic lesions within the left kidney largest measuring 2 cm in diameter representing simple cysts. Other smaller lesion measuring approximately 1.2 cm at the lower pole of the left kidney is not completely evaluated on this study. Further evaluation with nonemergent renal protocol CT or MRI is recommended nonemergent/outpatient setting. DM II- HTN- BP better since recd HD Continue antihypertensives COMMENT/RELEVANT DATA Meds Current Medications Medications (Trade) Dose Ordered Sig/Howard Start Time Stop Time Status Last Admin Dose Admin Acetaminophen (Tylenol) 500 mg 1X PRN PRN 11/02/19 10:00 11/02/19 18:11 DC 11/02/19 09:59 500 MG Acetaminophen/ Hydrocodone Bitart (Lortab 7.5/325) 1 tab PRN Q4HRS PRN 10/29/19 03:00 10/29/19 17:08 DC 10/29/19 09:57 1 TAB Albuterol Sulfate (Ventolin Neb Soln) 2.5 mg Q6HRS 10/29/19 12:00 11/03/19 07:45 2.5 MG Aspirin (Ecotrin) 81 mg DAILYWBKFT 11/02/19 08:00 11/03/19 09:02 81 MG Budesonide (Pulmicort) 0.5 mg RTBID 10/29/19 08:30 11/03/19 07:45 0.5 MG Cefazolin Sodium (Ancef) 1 gm 1X PRN 11/04/19 11:30 11/03/19 08:39 DC Cefazolin Sodium/ Dextrose 50 ml @ 100 mls/hr 1X ONCE 11/01/19 11:45 11/01/19 12:14 DC 11/01/19 12:00 100 MLS/HR Dextrose (Dextrose 50%-Water Syringe) 12.5 gm PRN Q15MIN PRN 10/29/19 07:30 Diltiazem HCl (Cardizem 24hr Cd) 240 mg DAILY 10/30/19 09:00 11/03/19 09:03 240 MG Fentanyl Citrate (Fentanyl 2ml Vial) 100 mcg STK-MED ONCE 11/01/19 11:45 11/01/19 13:31 DC Fluticasone Propionate (Flonase) 2 spray DAILY 10/29/19 09:00 11/03/19 09:05 2 SPRAY Heparin Sodium (Porcine) (Heparin Sodium) 5,000 unit Q12HR 10/29/19 09:00 11/03/19 09:09 5,000 UNIT Hydralazine HCl (Apresoline Inj) 5 mg PRN Q6HRS PRN 10/29/19 03:00 10/31/19 04:24 5 MG Hydralazine HCl (Apresoline) 100 mg TID 10/29/19 13:00 11/03/19 09:02 100 MG Info (PHARMACY MONITORING -- do not chart) 1 each PRN DAILY PRN 11/02/19 10:15 UNV Insulin Human Lispro (HumaLOG) 0-7 UNITS QIDACHS 10/29/19 07:30 11/02/19 17:41 3 UNITS Isosorbide Mononitrate (Imdur) 60 mg DAILY 10/29/19 09:00 11/03/19 09:04 60 MG Labetalol HCl (Normodyne Iv Push) 20 mg PRN Q2HR PRN 10/29/19 07:45 10/30/19 07:57 20 MG Labetalol HCl (Trandate) 300 mg BID 11/02/19 21:00 11/03/19 09:03 300 MG Lidocaine/ Epinephrine (LIDOCAINE 1%-EPI 1:100,000 Multi-Dose) 20 ml STK-MED ONCE 11/01/19 11:07 11/01/19 13:31 DC Magnesium Sulfate 50 ml @ 25 mls/hr PRN DAILY PRN 10/29/19 13:00 Midazolam HCl (Versed) 2 mg STK-MED ONCE 11/01/19 11:45 11/01/19 13:31 DC Nicotine (Nicoderm Cq 21mg) 1 patch DAILY 10/29/19 09:00 11/01/19 10:15 1 PATCH Non-Formulary Medication (Fluticasone/ Umeclidin/ Vilanter (Trelegy Ellipta 100-62.5-25)) 1 each BID 10/29/19 09:00 UNV Pantoprazole Sodium (Protonix) 40 mg DAILYAC 10/29/19 08:00 11/03/19 09:04 40 MG Polyethylene Glycol (miraLAX PACKET) 17 gm QHS 10/29/19 21:00 11/01/19 21:09 17 GM Potassium Chloride (Klor-Con) 40 meq BIDWMEALS 10/30/19 08:30 11/03/19 09:03 40 MEQ Prochlorperazine Edisylate (Compazine) 10 mg PRN Q6HRS PRN 10/29/19 17:15 11/01/19 21:13 10 MG Psyllium Hydrophilic Mucilloid (Metamucil Fiber Packet) 1 pkt QHS 10/29/19 21:00 11/02/19 20:02 1 PKT Sodium Chloride 1,000 ml @ 400 mls/hr Q2H30M PRN 11/02/19 08:00 11/02/19 19:59 DC Spironolactone (Aldactone) 25 mg BID 10/29/19 21:00 11/03/19 09:05 25 MG Tramadol HCl (Ultram) 50 mg PRN Q6HRS PRN 10/29/19 17:15 11/02/19 20:03 50 MG Lab Laboratory Tests Test 11/02/19 12:22 11/02/19 16:29 11/02/19 20:00 11/03/19 03:25 Glucose (Fingerstick) 122 mg/dL (70-99) 151 mg/dL (70-99) 106 mg/dL (70-99) Sodium Level 135 mmol/L (136-145) Potassium Level 4.8 mmol/L (3.5-5.1) Chloride Level 99 mmol/L (98-107) Carbon Dioxide Level 28 mmol/L (21-32) Anion Gap 8 (6-14) Blood Urea Nitrogen 17 mg/dL (7-20) Creatinine 3.5 mg/dL (0.6-1.0) Estimated GFR (Cockcroft-Gault) 16.0 Glucose Level 139 mg/dL (70-99) Calcium Level 8.8 mg/dL (8.5-10.1) Phosphorus Level 2.9 mg/dL (2.6-4.7) Magnesium Level 2.0 mg/dL (1.8-2.4) Albumin 2.4 g/dL (3.4-5.0) Test 11/03/19 07:15 Glucose (Fingerstick) 101 mg/dL (70-99) Results All relevant outside records, renal labs, imaging studies, telemetry/EKG's were reviewed. Justicifation of Admission Dx: Justifications for Admission: Justification of Admission Dx: No Acute Renal Failure: Serum Cr > 4mg/dL KAE VELASQUEZ MD Nov 03, 2019 10:55
[2019-11-03 11:08] VITALS: BP 114/55
--- NOTE | 2019-11-03 11:15 | PDOC ---
PROGRESS NOTES Subjective Subjective The patient is a 64-year-old female with a history of chronic renal insufficiency, which has progressed and is now requiring hemodialysis. She has been hospitalized and Nephrology has evaluated. Plans for Interventional Radiology to place a Perm-A-Cath and start hemodialysis have been made for today. She has never been on hemodialysis in the past. She has had no dialysis access procedures in her arms. She is right arm dominant, prefers the access in her left arm if possible. She reports some chronic weakness in her left arm, but it is functional. She reports no history of pacemakers or defibrillators. She reports no pain in her arms or hands. She currently has an IV in her right hand. She had a tunneled PermCath placed in her right chest on October 31. She had her first dialysis yesterday, November 01. She is doing well but complains of being very tired since dialysis yesterday. She has no complaints of pain currently. She has no complaints of left arm dysfunction at this time. She has no complaints of shortness of breath. Objective Objective Vital Signs Date Time Temp Pulse Resp B/P (MAP) Pulse Ox O2 Delivery O2 Flow Rate FiO2 11/03/19 11:08 99.0 71 18 114/55 (74) 95 Room Air 99.0 11/02/19 23:55 2.0 Intake and Output 11/03/19 07:00 Intake Total 450 ml Balance 450 ml Intake Oral 450 ml Physical Exam Extremities: No cyanosis General: Alert, Cooperative, No acute distress HEENT: Atraumatic Lungs: Normal air movement Neuro: Normal speech Psych/Mental Status: Mental status NL, Mood NL Skin: No rashes, No breakdown Plan Plan of Care 64-year-old diabetic female with end-stage renal disease now requiring hemodial ysis. She had a PermCath placed in interventional radiology . She had dialysis yesterday. She has an excellent radial pulse at her left wrist. She had vein mapping which Dr. Scott reviewed. I discussed with the patient our recommendations for a left radiocephalic AV fistula. We were initially trying to get her surgery done tomorrow but due to nonavailability, she is now schedu led for next Thursday. She is planning for discharge after dialysis tomorrow I believe. She is in agreement with this plan. Plan: Begin aspirin daily. Protect left arm from IV sticks and blood pressures. Hemodialysis per nephrology. Our plans are for a left radiocephalic AV fistula on an outpatient basis. We will contact her once we get surgery set up for her and give her all of her information and instruction. She is now scheduled on November 102019. Comment Review of Relevant I have reviewed the following items munir (where applicable) has been applied. Labs Laboratory Tests Test 11/01/19 17:15 11/01/19 21:09 11/02/19 06:40 11/02/19 06:45 Glucose (Fingerstick) 161 mg/dL (70-99) 108 mg/dL (70-99) Sodium Level 137 mmol/L (136-145) Potassium Level 5.2 mmol/L (3.5-5.1) Chloride Level 102 mmol/L (98-107) Carbon Dioxide Level 25 mmol/L (21-32) Anion Gap 10 (6-14) Blood Urea Nitrogen 28 mg/dL (7-20) Creatinine 4.6 mg/dL (0.6-1.0) Estimated GFR (Cockcroft-Gault) 11.6 Glucose Level 194 mg/dL (70-99) Calcium Level 8.3 mg/dL (8.5-10.1) Phosphorus Level 3.2 mg/dL (2.6-4.7) Albumin 2.4 g/dL (3.4-5.0) Magnesium Level 1.9 mg/dL (1.8-2.4) Test 11/02/19 08:23 11/02/19 12:22 11/02/19 16:29 11/02/19 20:00 Glucose (Fingerstick) 194 mg/dL (70-99) 122 mg/dL (70-99) 151 mg/dL (70-99) 106 mg/dL (70-99) Test 11/03/19 03:25 11/03/19 07:15 Sodium Level 135 mmol/L (136-145) Potassium Level 4.8 mmol/L (3.5-5.1) Chloride Level 99 mmol/L (98-107) Carbon Dioxide Level 28 mmol/L (21-32) Anion Gap 8 (6-14) Blood Urea Nitrogen 17 mg/dL (7-20) Creatinine 3.5 mg/dL (0.6-1.0) Estimated GFR (Cockcroft-Gault) 16.0 Glucose Level 139 mg/dL (70-99) Calcium Level 8.8 mg/dL (8.5-10.1) Phosphorus Level 2.9 mg/dL (2.6-4.7) Magnesium Level 2.0 mg/dL (1.8-2.4) Albumin 2.4 g/dL (3.4-5.0) Glucose (Fingerstick) 101 mg/dL (70-99) Laboratory Tests Test 11/02/19 12:22 11/02/19 16:29 11/02/19 20:00 11/03/19 03:25 Glucose (Fingerstick) 122 mg/dL (70-99) 151 mg/dL (70-99) 106 mg/dL (70-99) Sodium Level 135 mmol/L (136-145) Potassium Level 4.8 mmol/L (3.5-5.1) Chloride Level 99 mmol/L (98-107) Carbon Dioxide Level 28 mmol/L (21-32) Anion Gap 8 (6-14) Blood Urea Nitrogen 17 mg/dL (-20) Creatinine 3.5 mg/dL (0.6-1.0) Estimated GFR (Cockcroft-Gault) 16.0 Glucose Level 139 mg/dL (70-99) Calcium Level 8.8 mg/dL (8.5-10.1) Phosphorus Level 2.9 mg/dL (2.6-4.7) Magnesium Level 2.0 mg/dL (1.8-2.4) Albumin 2.4 g/dL (3.4-5.0) Test 11/03/19 07:15 Glucose (Fingerstick) 101 mg/dL (70-99) Microbiology 10/31/19 Urine Culture - Final, Complete Medications Current Medications Labetalol HCl (Normodyne Iv Push) 20 mg 1X ONCE IVP Last administered on 10/28/19at 22:49; Start 10/28/19 at 22:30; Stop 10/28/19 at 22:31; Status DC Acetaminophen/ Hydrocodone Bitart (Lortab 7.5/325) 1 tab PRN Q4HRS PRN PO PAIN Last administered on 10/29/19at 09:57; Start 10/29/19 at 03:00; Stop 10/29/19 at 17:08; Status DC Hydralazine HCl (Apresoline Inj) 5 mg 1X ONCE IVP Last administered on 03/09at 03:09; Start 10/29/19 at 03:00; Stop 10/29/19 at 03:04; Status DC Hydralazine HCl (Apresoline Inj) 5 mg PRN Q6HRS PRN IVP ELEVATED BP, 1st CHOICE Last administered on 10/31/19at 04:24; Start 10/29/19 at 03:00 Insulin Human Lispro (HumaLOG) 0-7 UNITS QIDACHS SQ Last administered on 11/02/19at 17:41; Start 10/29/19 at 07:30 Dextrose (Dextrose 50%-Water Syringe) 12.5 gm PRN Q15MIN PRN IV SEE COMMENTS; Start 10/29/19 at 07:30 Labetalol HCl (Normodyne Iv Push) 20 mg PRN Q2HR PRN IVP HYPERTENSION, 1st CHOICE Last administered on 10/30/19at 07:57; Start 10/29/19 at 07:45 Fluticasone Propionate (Flonase) 2 spray DAILY NS Last administered on 11/03/19at 09:05; Start 10/29/19 at 09:00 Hydralazine HCl (Apresoline) 50 mg BID PO Last administered on 10/29/19at 09:43; Start 10/29/19 at 09:00; Stop 10/29/19 at 12:55; Status DC Pantoprazole Sodium (Protonix) 40 mg DAILYAC PO Last administered on 11/03/19at 09:04; Start 10/29/19 at 08:00 Non-Formulary Medication (Fluticasone/ Umeclidin/ Vilanter (Trelegy Ellipta 10 0-62.5-25)) 1 each BID IH ; Start 10/29/19 at 09:00; Status UNV Isosorbide Mononitrate (Imdur) 60 mg DAILY PO Last administered on 11/03/19at 09:04; Start 10/29/19 at 09:00 Nicotine (Nicoderm Cq 21mg) 1 patch DAILY TD Last administered on 11/01/19at 10:15; Start 10/29/19 at 09:00 Heparin Sodium (Porcine) (Heparin Sodium) 5,000 unit Q12HR SQ Last administered on 11/03/19 09:09; Start 10/29/19 at 09:00 Albuterol Sulfate (Ventolin Neb Soln) 2.5 mg Q6HRS NEB Last administered on 11/03/19 07:45; Start 10/29/19 at 12:00 Budesonide (Pulmicort) 0.5 mg RTBID NEB Last administered on 11/03/19 07:45; Start 10/29/19 at 08:30 Hydralazine HCl (Apresoline) 100 mg TID PO Last administered on 11/03/19 09:02; Start 10/29/19 at 13:00 Magnesium Sulfate 50 ml @ 25 mls/hr PRN DAILY PRN IV for Mag < 1.7 on am labs; Start 10/29/19 at 13:00 Spironolactone (Aldactone) 25 mg BID PO Last administered on 11/03/19 09:05; Start 10/29/19 at 21:00 Potassium Chloride (Klor-Con) 40 meq QID PO Last administered on 10/29/19 17:30; Start 10/29/19 at 13:00; Stop 10/29/19 at 17:01; Status DC Prochlorperazine Edisylate (Compazine) 10 mg PRN Q6HRS PRN IV HUANG/NA USEA/VOMITING Last administered on 11/01/19 21:13; Start 10/29/19 at 17:15 Tramadol HCl (Ultram) 50 mg PRN Q6HRS PRN PO PAIN Last administered on 11/02/19 20:03; Start 10/29/19 at 17:15 Psyllium Hydrophilic Mucilloid (Metamucil Fiber Packet) 1 pkt QHS PO Last administered on 11/02/19 20:02; Start 10/29/19 at 21:00 Polyethylene Glycol (miraLAX PACKET) 17 gm QHS PO Last administered on 11/01/19 21:09; Start 10/29/19 at 21:00 Diltiazem HCl (Cardizem 24hr Cd) 240 mg DAILY PO Last administered on 11/03/19 09:03; Start 10/30/19 at 09:00 Potassium Chloride (Klor-Con) 40 meq BIDWMEALS PO Last administered on 7/16/20at 09:03; Start 10/30/19 at 08:30 Labetalol HCl (Trandate) 100 mg BID PO Last administered on 10/31/19at 08:51; Start 10/30/19 at 10:30; Stop 10/31/19 at 15:26; Status DC Labetalol HCl (Trandate) 200 mg BID PO Last administered on 11/02/19at 09:52; Start 10/31/19 at 21:00; Stop 11/02/19 at 15:56; Status DC Aspirin (Ecotrin) 81 mg DAILYWBKFT PO Last administered on 11/03/19at 09:02; Start 11/02/19 at 08:00 Midazolam HCl (Versed) 2 mg 1X ONCE IV Last administered on 11/01/19at 12:03; Start 11/01/19 at 11:30; Stop 11/01/19 at 11:33; Status DC Fentanyl Citrate (Fentanyl 2ml Vial) 100 mcg 1X ONCE IV Last administered on 11/01/19at 12:03; Start 11/01/19 at 11:30; Stop 11/01/19 at 11:33; Status DC Lidocaine/ Epinephrine (LIDOCAINE 1%-EPI 1:100,000 Multi-Dose) 20 ml 1X ONCE SQ Last administered on 11/01/19at 12:05; Start 11/01/19 at 11:30; Stop 11/01/19 at 11:33; Status DC Cefazolin Sodium (Ancef) 2 gm 1X ONCE IVP ; Start 11/01/19 at 12:00; Stop 11/01/19 at 12:01; Status UNV Cefazolin Sodium/ Dextrose 50 ml @ 100 mls/hr 1X ONCE IV Last administered on 11/01/19at 12:00; Start 11/01/19 at 11:45; Stop 11/01/19 at 12:14; Status DC Cefazolin Sodium (Ancef) 1 gm 1X PRN IVP PRIOR TO PROCEDURE; Start 11/04/19 at 11:30; Stop 11/03/19 at 08:39; Status DC Sodium Chloride 1,000 ml @ 1,000 mls/hr Q1H PRN IV hypotension; Start 11/01/19 at 12:00; Stop 11/01/19 at 17:59; Status DC Sodium Chloride 1,000 ml @ 400 mls/hr Q2H30M PRN IV PATENCY; Start 11/01/19 at 12:00; Stop 11/01/19 at 23:59; Status DC Info (PHARMACY MONITORING -- do not chart) 1 each PRN DAILY PRN MC SEE COMMENTS; Start 11/01/19 at 12:45; Status UNV Info (PHARMACY MONITORING -- do not chart) 1 each PRN DAILY PRN MC SEE COMMENTS; Start 11/01/19 at 12:45 Lidocaine/ Epinephrine (LIDOCAINE 1%-EPI 1:100,000 Multi-Dose) 20 ml STK-MED ONCE .ROUTE ; Start 11/01/19 at 11:07; Stop 11/01/19 at 13:31; Status DC Midazolam HCl (Versed) 2 mg STK-MED ONCE .ROUTE ; Start 11/01/19 at 11:45; Stop 11/01/19 at 13:31; Status DC Fentanyl Citrate (Fentanyl 2ml Vial) 100 mcg STK-MED ONCE .ROUTE ; Start 11/01/19 at 11:45; Stop 11/01/19 at 13:31; Status DC Acetaminophen (Tylenol) 500 mg 1X PRN PRN PO MILD PAIN / TEMP > 100.3'F Last administered on 11/02/19at 09:59; Start 11/02/19 at 10:00; Stop 11/02/19 at 18:11; Status DC Sodium Chloride 1,000 ml @ 1,000 mls/hr Q1H PRN IV hypotension; Start 11/02/19 at 08:00; Stop 11/02/19 at 13:59; Status DC Sodium Chloride 1,000 ml @ 400 mls/hr Q2H30M PRN IV PATENCY; Start 11/02/19 at 08:00; Stop 11/02/19 at 19:59; Status DC Info (PHARMACY MONITORING -- do not chart) 1 each PRN DAILY PRN MC SEE COMMENTS; Start 11/02/19 at 10:15; Status Cancel Info (PHARMACY MONITORING -- do not chart) 1 each PRN DAILY PRN MC SEE COMMENTS; Start 11/02/19 at 10:15; Status UNV Labetalol HCl (Trandate) 300 mg BID PO Last administered on 11/03/19at 09:03; Start 11/02/19 at 21:00 Active Scripts Active Polyethylene Glycol 3350 17 Gm Powd.pack 17 Gm PO QHS 30 Days Aspirin Ec (Aspirin) 81 Mg Tablet.dr 81 Mg PO DAILYWBKFT 30 Days Aldactone (Spironolactone) 25 Mg Tablet 25 Mg PO BID 30 Days Diltiazem 24Hr Cd (Diltiazem HCl) 240 Mg Cap.er.24h 240 Mg PO DAILY 30 Days Labetalol Hcl 100 Mg Tablet 300 Mg PO BID 30 Days Hydralazine Hcl 50 Mg Tablet 100 Mg PO TID 30 Days Humalog (Insulin Lispro) 100 Unit/1 Ml Insuln.pen 0 Units SQ TIDWMEALS 30 Days Fluticasone Propionate Nasal [place] (Fluticasone Propionate) 16 Gm [place].susp 2 [place] NS DAILY 30 Days Reported Isosorbide Mononitrate Er (Isosorbide Mononitrate) 60 Mg Tab.er.24h 60 Mg PO BID Protonix (Pantoprazole Sodium) 40 Mg Tablet.dr 40 Mg PO DAILYAC Trelegy Ellipta 100-62.5-25 (Fluticasone/Umeclidin/Vilanter) 1 Each Blst.w.dev 1 Each IH BID Albuterol Sulfate Hfa Inhaler (Albuterol Sulfate) 8.5 Gm Hfa.aer.ad 8.5 Gm IH Vitals/I & O Vital Sign - Last 24 Hours 11/02/19 11/02/19 11/02/19 11/02/19 11:59 13:05 14:05 14:53 Pulse 78 90 Resp 18 18 B/P (MAP) 151/79 175/102 O2 Delivery Room Air Room Air 11/02/19 11/02/19 11/02/19 11/02/19 15:00 20:00 20:00 20:02 Temp 98.2 98.4 98.2 98.4 Pulse 90 90 90 Resp 18 18 B/P (MAP) 145/94 (111) 176/98 (124) 145/94 Pulse Ox 95 97 O2 Delivery Room Air 11/02/19 11/02/19 11/02/19 11/02/19 20:03 20:03 20:31 20:33 Pulse 90 Resp 16 B/P (MAP) 145/94 Pulse Ox 98 98 O2 Delivery Room Air Room Air Room Air 11/02/19 11/02/19 11/03/19 11/03/19 22:59 23:55 03:00 07:15 Temp 98.9 98.7 98.3 98.9 98.7 98.3 Pulse 67 82 89 Resp 20 18 17 B/P (MAP) 154/72 (99) 168/70 (102) 145/84 (104) Pulse Ox 95 98 96 100 O2 Delivery Room Air Nasal Cannula Room Air Room Air O2 Flow Rate 2.0 11/03/19 11/03/19 11/03/19 11/03/19 07:47 08:00 09:02 09:03 Pulse 89 89 B/P (MAP) 145/84 145/84 O2 Delivery Room Air Room Air 11/03/19 11/03/19 11/03/19 09:03 09:04 11:08 Temp 99.0 99.0 Pulse 89 89 71 Resp 18 B/P (MAP) 145/84 145/84 114/55 (74) Pulse Ox 95 O2 Delivery Room Air Intake and Output 11/02/19 11/02/19 11/03/19 15:00 23:00 07:00 Intake Total 300 ml 150 ml 0 ml Balance 300 ml 150 ml 0 ml Justicifation of Admission Dx: Justifications for Admission: Justification of Admission Dx: No Acute Renal Failure: Serum Cr > 4mg/dL KECIA RIVERA [employer]SEM[employer]ER Nov 03, 2019 11:15
[2019-11-03 15:00] VITALS: BP 114/57
[2019-11-03 15:04] VITALS: BP 114/57
[2019-11-03] MEDS: traMADol 50 MG TABLET PO PRN (15:04)
--- NOTE | 2019-11-03 15:39 | PDOC ---
RONNELL PEREZ WHEEL BLOCKER 11/03/19 1539: CARDIO Progress Notes Date and Time Date of Service 11/03/19 Time of Evaluation 1214 Subjective Subjective: No Chest Pain, No shortness of breath, No Palpitations Vitals Vitals Vital Signs Date Time Temp Pulse Resp B/P (MAP) Pulse Ox O2 Delivery O2 Flow Rate FiO2 11/03/19 15:11 99 Room Air 11/03/19 15:04 18 2.0 11/03/19 15:04 71 114/57 11/03/19 15:00 98.4 98.4 Weight Weight [ ] Input and Output Intake and Output Intake and Output 11/03/19 07:00 Intake Total 450 ml Balance 450 ml Intake Oral 450 ml Laboratory Labs Laboratory Tests Test 11/02/19 16:29 11/02/19 20:00 11/03/19 03:25 11/03/19 07:15 Glucose (Fingerstick) 151 mg/dL (70-99) 106 mg/dL (70-99) 101 mg/dL (70-99) Sodium Level 135 mmol/L (136-145) Potassium Level 4.8 mmol/L (3.5-5.1) Chloride Level 99 mmol/L (98-107) Carbon Dioxide Level 28 mmol/L (21-32) Anion Gap 8 (6-14) Blood Urea Nitrogen 17 mg/dL (-20) Creatinine 3.5 mg/dL (0.6-1.0) Estimated GFR (Cockcroft-Gault) 16.0 Glucose Level 139 mg/dL (70-99) Calcium Level 8.8 mg/dL (8.5-10.1) Phosphorus Level 2.9 mg/dL (2.6-4.7) Magnesium Level 2.0 mg/dL (1.8-2.4) Albumin 2.4 g/dL (3.4-5.0) Test 11/03/19 11:26 Glucose (Fingerstick) 153 mg/dL (70-99) Microbiology Micro Microbiology 10/31/19 Urine Culture - Final, Complete Physical Exam HEENT: Neck Supple W Full Motion Chest: Symmetric LUNGS: Clear to Auscultation Heart: RRR Abdomen: Soft N/T, Other (obese) Extremities: No Calf Tenderness Neurology: alert, oriented, follow commands Assessment Assessment 1. Hypertensive urgency; BP now controlled 2. CKD; now ESRD. HD to initiated 10/31 3. Chronic diastolic CHF; appears compensated. Recent echo with preserved LV systolic function 4. Dyslipidemia 5. Diabetes, II 6. Obesity 7. H/o poor compliance 8. Hyperkalemia Recommendations Continue current antiHTN therapy; monitor trends Supportive care Justicifation of Admission Dx: Justifications for Admission: Justification of Admission Dx: No Acute Renal Failure: Serum Cr > 4mg/dL VINCE FRIAS MD 11/03/192055: CARDIO Progress Notes Plan Plan The patient was seen and interviewed as well as examined at the bedside. The chart was reviewed. The case was discussed. Agree with the plan of care. RONNELL PEREZ APRN Nov 03, 2019 15:39 VINCE FRIAS MD Nov 03, 2019 20:56
--- NOTE | 2019-11-03 17:13 | NUR ---
Discharge Note: HERRERA BERKOWITZ Discharge instructions and discharge home medications reviewed with Patient and a copy given. All questions have been answered and understanding verbalized. The following instructions and handouts were given: dialysis diet, HTN, and dialysis central cath care. Discontinued iv line and catheter intact. Patient discharged to home with self-care via private vehicle.
[2019-11-04] MEDS ORDERED: ceFAZolin SODIUM IV Push 1 GM VIAL. IVP PRN (11:30)
--- NOTE | 2019-11-17 11:56 | RESP ---
DATE OF SERVICE: 10/29/2019 NOCTURNAL OXIMETRY The patient's mean oxygen saturation remained around 95% with the lowest of 78%. 4.9% time oxygen saturation remained less than 90%, which was 23 minutes and 54 seconds. IMPRESSION: Mild nocturnal hypoxia. RECOMMENDATIONS: If clinical suspicion for sleep apnea is high, then consider doing full polysomnogram. It should also be noted that patient remained awake throughout most of the study. ADRIAN CERNA MD DR: LILIANA/kat JOB#: [id number] / [id number]
== END 2019-11-03 17:23 | disposition home or self-care (01) | DRG 673 ==
LOC: ER 20:55 → 2 SOUTH 22:27
PROVIDERS: ADMIT Internal Medicine; ATTEND Internal Medicine
PROC: 0JH63XZ Insertion of Tunneled Vascular Access Device into Chest Subcutaneous Tissue and Fascia, Percutaneous Approach (ICD-10-PCS; principal; 2019-11-01)
PROC: 02H633Z Insertion of Infusion Device into Right Atrium, Percutaneous Approach (ICD-10-PCS; 2019-11-01)
PROC: B548ZZA Ultrasonography of Superior Vena Cava, Guidance (ICD-10-PCS; 2019-11-01)
PROC: B5181ZA Fluoroscopy of Superior Vena Cava using Low Osmolar Contrast, Guidance (ICD-10-PCS; 2019-11-01)
PROC: 5A1D70Z Performance of Urinary Filtration, Intermittent, Less than 6 Hours Per Day (ICD-10-PCS; 2019-11-01)
PROC: 5A1D70Z Performance of Urinary Filtration, Intermittent, Less than 6 Hours Per Day (ICD-10-PCS; 2019-11-02)
DX: N17.9 Acute kidney failure, unspecified (principal); E43 Unspecified severe protein-calorie malnutrition; I16.1 Hypertensive emergency; I50.32 Chronic diastolic (congestive) heart failure; I13.2 Hypertensive heart and chronic kidney disease with heart failure and with stage 5 chronic kidney disease, or end stage renal disease; N18.6 End stage renal disease; N04.9 Nephrotic syndrome with unspecified morphologic changes; Z20.828 Contact with and (suspected) exposure to other viral communicable diseases; E11.22 Type 2 diabetes mellitus with diabetic chronic kidney disease; E66.01 Morbid (severe) obesity due to excess calories; E78.00 Pure hypercholesterolemia, unspecified; E78.5 Hyperlipidemia, unspecified; N28.1 Cyst of kidney, acquired; E87.5 Hyperkalemia; F17.210 Nicotine dependence, cigarettes, uncomplicated; F32.9 Major depressive disorder, single episode, unspecified; F41.9 Anxiety disorder, unspecified; G43.909 Migraine, unspecified, not intractable, without status migrainosus; K21.9 Gastro-esophageal reflux disease without esophagitis; E87.6 Hypokalemia; D35.00 Benign neoplasm of unspecified adrenal gland; K25.9 Gastric ulcer, unspecified as acute or chronic, without hemorrhage or perforation; J44.9 Chronic obstructive pulmonary disease, unspecified; K57.90 Diverticulosis of intestine, part unspecified, without perforation or abscess without bleeding; K59.00 Constipation, unspecified; G47.30 Sleep apnea, unspecified; Z99.2 Dependence on renal dialysis; Z91.14 Patient's other noncompliance with medication regimen; Z87.11 Personal history of peptic ulcer disease; Z11.59 Encounter for screening for other viral diseases; Z86.19 Personal history of other infectious and parasitic diseases; Z68.38 Body mass index [BMI] 38.0-38.9, adult; Z90.49 Acquired absence of other specified parts of digestive tract; Z98.891 History of uterine scar from previous surgery; Z79.899 Other long term (current) drug therapy; Z71.6 Tobacco abuse counseling
CPT/HCPCS: 36415; 36558; 71045; 76937; 77001; 80053; 80069; 80307; 81001; 82570; 82784; 82962; 83520; 83735; 83880; 84156; 84165; 84166; 84484; 85018; 85025; 85610; 85730; 86334; 86335; 86704; 86706; 87086; 87340; 93005; 93970; 94640; 94760; 94799; 96374; 99152; 99153; C1750; C1769; C1892; J0360; J0690; J0780; J1644; J1815; J2250; J3010; J3490; 97110-GP; 99285-25; G0378; J7613; J7626; U0003-CS

== ENCOUNTER → 2019-11-11 | Day surgery (SDC) | payer MEDICAID ==
[~2019-11-11] VITALS: Ht 152.4 cm; Wt 95.3 kg
[~2019-11-11] MED LIST changes: +DILT240C33 PO; +FURO40TA4 PO; +HEPARIN SODIUM 5,000 UNIT in IV NORMAL SALINE 500ML BAG 500 ML IRR ONE; +HYDR-2763 PO; +HYDR-2869 PO; +ISOS60TA2 PO; +LABE100T5 PO; +POLY17PO28 PO; +SPIR25TA PO; +ceFAZolin 2GM PREMIX 2 GM/50 ML BAG IV ONE
[2019-11-11 09:59] VITALS: BP 120/67
--- NOTE | 2019-11-24 06:54 | NUR ---
Pt tested positive for Covid 19 on her antigen test. Surgery cancelled.
== END | disposition home or self-care (01) ==
LOC: SURG 08:48
PROVIDERS: ATTEND Surgery Vascular Surgery
DX: Z53.8 Procedure and treatment not carried out for other reasons (principal); N18.9 Chronic kidney disease, unspecified; I10 Essential (primary) hypertension; Z79.899 Other long term (current) drug therapy; Z79.82 Long term (current) use of aspirin; Z88.8 Allergy status to other drugs, medicaments and biological substances
CPT/HCPCS: 82962; 87426; J0690; J1644; J7040

== ENCOUNTER 2019-11-15 12:19 | Inpatient (IN) | payer MEDICAID ==
[~2019-11-15] VITALS: Ht 152.4 cm; Wt 91.2 kg
[~2019-11-15 12:19] MED LIST changes: -HEPARIN SODIUM 5,000 UNIT in IV NORMAL SALINE 500ML BAG 500 ML IRR ONE; -ceFAZolin 2GM PREMIX 2 GM/50 ML BAG IV ONE
[2019-11-15] MEDS ORDERED: fentaNYL PF VIAL 100 MCG/2 ML VIAL IVP ONE (13:00)
[2019-11-15 13:18] LABS: BASO # 0.1 x10^3/uL (0.0-0.2); BASO % 1 % (0-3); EOS % 1 % (0-3); HEMATOCRIT 31.5 % (36.0-47.0); HEMOGLOBIN 10.2 g/dL (12.0-15.5); LYMPH # 1.2 x10^3/uL (1.0-4.8); LYMPH % 20 % (24-48); MEAN CORPUSCULAR HEMOGLOBIN 26 pg (25-35); MEAN CORPUSCULAR HGB CONC 33 g/dL (31-37); MEAN CORPUSCULAR VOLUME 79 fL (79-100); MONO # 0.7 x10^3/uL (0.0-1.1); MONO % 12 % (0-9); NEUT % 66 % (31-73); PLATELET COUNT 185 x10^3/uL (140-400); RED CELL DISTRIBUTION WIDTH 15.2 % (11.5-14.5); WHITE BLOOD COUNT 6.1 x10^3/uL (4.0-11.0)
[2019-11-15 13:27] LABS: PROTHROMBIN TIME PATIENT 13.3 SEC (11.7-14.0)
[2019-11-15 13:29] LABS: CALCIUM 8.4 mg/dL (8.5-10.1); CREATININE 4.7 mg/dL (0.6-1.0); GFR 11.4; POTASSIUM 4.8 mmol/L (3.5-5.1)
[2019-11-15 13:34] LABS: ALBUMIN 2.4 g/dL (3.4-5.0); ALBUMIN/GLOBULIN RATIO 0.6 (1.0-1.7); DIRECT BILIRUBIN 0.1 mg/dL (0.0-0.2); TOTAL BILIRUBIN 0.5 mg/dL (0.2-1.0); TOTAL PROTEIN 6.6 g/dL (6.4-8.2)
[2019-11-15] MEDS ORDERED: ACETAMINOPHEN 500 MG TABLET PO ONE (14:00)
--- NOTE | 2019-11-15 14:02 | RAD ---
PORTABLE CHEST 1V History: Reason: SHORT OF BREATH / Spl. Instructions: / History: Comparison: October 28, 2019 Findings: Patchy bibasilar opacities. No pleural effusion. No pneumothorax. Vascular congestion. Unchanged heart size. Right IJ central line with tip projecting over the cavoatrial junction. Elevation of the right hemidiaphragm. Impression: 1. Vascular congestion with patchy bibasilar opacities, may represent early pulmonary edema. Electronically signed by: Khadar Cisneros DO (11/15/2019 1:59 PM) [facility]
--- NOTE | 2019-11-15 16:01 | PHYS DOC ---
Past Medical History Past Medical History: Asthma, Diabetes-Type II, High Cholesterol, Hypertension, Renal Failure Additional Past Medical Histor: sleep apnea; ulcers; GI bleed, Stage 5 CKD Past Surgical History: Additional Past Surgical Histo: hernia; right chest diaylsis catheter Smoking Status: Current Every Day Smoker Alcohol Use: None Drug Use: None General Adult EDM: Chief Complaint: OTHER COMPLAINTS HPI: HPI: Patient is a 64 year old female that presents to the emergency department from dialysis with a chief complaint that she needs her dialysis catheter replaced. Patient is recent diagnosed end-stage renal disease, had her dialysis catheter placed on her right upper chest approximately 2 weeks ago for the first time. Patient states she has used this dialysis catheter only 4 times, she does Thursday dialysis, stating that the dialysis nurse complained that her catheter did not work so well on Thursday and only did a partial dialysis, today had the same problems and again only did a partial dialysis and was sent here for dialysis catheter placement. Patient states that she tested COVID positive approximately 6 days ago. Patient denies fever or chills, however patient had a fever of 101.5 upon admission from triage. Patient states she does not have any physical complaints, other than she has this slight headache that is like her normal migraines that she gets 5-6 times a week. Patient denies any fever or chills, patient denies shortness of breath or chest pains. Patient denies any abdominal pains or nausea vomiting diarrhea or constipation. Patient denied any problems urinating, patient states that she does still make urine even though she is on dialysis. Patient denies any back pains or pain in her joints, any skin rashes, any swelling of her glands, depressions anxieties homicidal or suicidal ideations. Review of Systems: Review of Systems: Constitutional: Denies fever or chills. States she is COVID positive for approximately the last 6 days. Eyes: Denies change in visual acuity. HENT: Denies nasal congestion or sore throat. Respiratory: Denies cough or shortness of breath. Cardiovascular: Denies chest pain or edema. GI: Denies abdominal pain, nausea, vomiting, bloody stools or diarrhea. : Denies dysuria. Musculoskeletal: Denies back pain or joint pain. Complains of a slight headache that she rates a 2/10, reporting her headache as her typical migraine headache pain that she gets 4-5 times a week Integument: Denies rash. Neurologic: Denies headache, focal weakness or sensory changes. Lymphatic: Denies swollen glands. Psychiatric: Denies depression or anxiety. Denies homicidal or suicidal ideations Heart Score: Risk Factors: Risk Factors: DM, Current or recent (<one month) smoker, HTN, HLP, family history of CAD, obesity. Risk Scores: Score 0 - 3: 2.5% MACE over next 6 weeks - Discharge Home Score 4 - 6: 20.3% MACE over next 6 weeks - Admit for Clinical Observation Score 7 - 10: 72.7% MACE over next 6 weeks - Early Invasive Strategies Current Medications: Current Medications Medications (Trade) Dose Ordered Sig/[facility] Start Time Stop Time Status Last Admin Dose Admin Acetaminophen (Tylenol) 1,000 mg 1X ONCE 11/15/19 14:00 11/15/19 14:01 DC 11/15/19 14:06 1,000 MG Fentanyl Citrate (Fentanyl 2ml Vial) 25 mcg 1X ONCE 11/15/19 13:00 11/15/19 13:14 DC 11/15/19 14:07 25 MCG Allergies: Allergies: Allergies Coded Allergies Type Severity Reaction Last Updated Verified Iodinated Contrast Media Adverse Reaction Intermediate Nausea and Vomiting 11/11/19 Yes Physical Exam: PE: Constitutional: Well developed, well nourished, no acute distress, non-toxic appearance. HENT: Normocephalic, atraumatic, bilateral external ears normal, oropharynx moist, no oral exudates, nose normal. Eyes: PERRLA, EOMI, conjunctiva normal, no discharge. Pupils 2 mm. Neck: Normal range of motion, no tenderness, supple, no stridor. Cardiovascular:Heart rate regular rhythm, no murmur heart sounds S1-S2, rate tachycardic, no other abnormalities noted per auscultation. Lungs & Thorax: Bilateral breath sounds clear to auscultation all lung edwards. Abdomen: Bowel sounds normal all 4 quadrant, soft, no tenderness, no masses, no pulsatile masses. Skin: Warm, dry, no erythema, no rash. Back: No tenderness, no CVA tenderness. Extremities: No tenderness, no cyanosis, no clubbing, ROM intact, no edema. Neurologic: Alert and oriented X 3, normal motor function, normal sensory function, no focal deficits noted. Psychologic: Affect normal, judgement normal, mood normal. Renal: Patient has a dialysis catheter on the right upper chest, no erythema or purulent drainage or signs and symptoms of infectious process at insertion site, the ends of the dialysis catheter were dressed per dialysis unit protocols. Current Patient Data: Labs: Laboratory Tests Test 11/15/19 12:55 White Blood Count 6.1 x10^3/uL (4.0-11.0) Red Blood Count 4.00 x10^6/uL (3.50-5.40) Hemoglobin 10.2 g/dL (12.0-15.5) L Hematocrit 31.5 % (36.0-47.0) L Mean Corpuscular Volume 79 fL (79-100) Mean Corpuscular Hemoglobin 26 pg (25-35) Mean Corpuscular Hemoglobin Concent 33 g/dL (31-37) Red Cell Distribution Width 15.2 % (11.5-14.5) H Platelet Count 185 x10^3/uL (140-400) Neutrophils (%) (Auto) 66 % (31-73) Lymphocytes (%) (Auto) 20 % (24-48) L Monocytes (%) (Auto) 12 % (0-9) H Eosinophils (%) (Auto) 1 % (0-3) Basophils (%) (Auto) 1 % (0-3) Neutrophils # (Auto) 4.0 x10^3/uL (1.8-7.7) Lymphocytes # (Auto) 1.2 x10^3/uL (1.0-4.8) Monocytes # (Auto) 0.7 x10^3/uL (0.0-1.1) Eosinophils # (Auto) 0.0 x10^3/uL (0.0-0.7) Basophils # (Auto) 0.1 x10^3/uL (0.0-0.2) Prothrombin Time 13.3 SEC (11.7-14.0) Prothrombin Time INR 1.1 (0.8-1.1) Activated Partial Thromboplast Time 32 SEC (24-38) Sodium Level 136 mmol/L (136-145) Potassium Level 4.8 mmol/L (3.5-5.1) Chloride Level 102 mmol/L (98-107) Carbon Dioxide Level 25 mmol/L (21-32) Anion Gap 9 (6-14) Blood Urea Nitrogen 24 mg/dL (7-20) H Creatinine 4.7 mg/dL (0.6-1.0) H Estimated GFR (Cockcroft-Gault) 11.4 BUN/Creatinine Ratio 5 (6-20) L Glucose Level 188 mg/dL (70-99) H Lactic Acid Level 0.8 mmol/L (0.4-2.0) Calcium Level 8.4 mg/dL (8.5-10.1) L Total Bilirubin 0.5 mg/dL (0.2-1.0) Direct Bilirubin 0.1 mg/dL (0.0-0.2) Aspartate Amino Transferase (AST) 17 U/L (15-37) Alanine Aminotransferase (ALT) 16 U/L (14-59) Alkaline Phosphatase 114 U/L (46-116) Total Protein 6.6 g/dL (6.4-8.2) Albumin 2.4 g/dL (3.4-5.0) L Albumin/Globulin Ratio 0.6 (1.0-1.7) L Lipase 145 U/L (73-393) Laboratory Tests 11/15/19 12:55 Laboratory Tests 11/15/19 12:55 Vital Signs: Vital Signs Date Time Temp Pulse Resp B/P (MAP) Pulse Ox O2 Delivery O2 Flow Rate FiO2 11/15/19 14:07 24 95 Room Air 11/15/19 12:30 101.5 111 120/67 (84) 101.5 EKG: EKG: [] Radiology/Procedures: Radiology/Procedures: []PROCEDURE: PORTABLE CHEST 1V PORTABLE CHEST 1V History: Reason: SHORT OF BREATH / Spl. Instructions: / History: Comparison: October 28, 2019 Findings: Patchy bibasilar opacities. No pleural effusion. No pneumothorax. Vascular congestion. Unchanged heart size. Right IJ central line with tip projecting over the cavoatrial junction. Elevation of the right hemidiaphragm. Impression: 1. Vascular congestion with patchy bibasilar opacities, may represent early pulmonary edema. Electronically signed by: Supa Cisneros DO (11/15/2019 1:59 PM) [facility] DICTATED and SIGNED BY: SUPA CISNEROS DO DATE: 11/15/19 1836 Course & Med Decision Making: Course & Med Decision Making Pertinent Labs and Imaging studies reviewed. (See chart for details) 64-year-old patient was sent here today from her dialysis unit stating that the last 2 times that they try to use her dialysis catheter did not work properly causing an incomplete dialysis. Patient had no complaints, other than a slight headache which she was given IV fentanyl for which resolved her headache to a 0. Patient however did have a fever upon arrival to the emergency department, kody mullen did state that she was tested positive for the COVID-19 virus approximately 6 days ago. The patient's fever was treated with p.o. Tylenol which resolved her fever. Discussed this case with [facility] Dr. Wilde who agreed to accept admission. Discussed admission with patient who is agreeable to this patient was admitted to a [facility] floor. Dragon Disclaimer: Dragon Disclaimer: This electronic medical record was generated, in whole or in part, using a voice recognition dictation system. Departure Departure Impression: Primary Impression: Dialysis catheter clot or failure Additional Impressions: COVID-19 virus detected Fever Qualified Codes: R50.9 - Fever, unspecified Disposition: ADMITTED INPATIENT Admitting Physician: [facility] (DR. WILDE) Condition: GUARDED Referrals: RICKY PORTILLO MD (PCP) Justicifation of Admission Dx: Justifications for Admission: Justification of Admission Dx: Yes Acute Renal Failure: Serum Cr > 4mg/dL Comments: 1. Dialysis catheter dysfunction and/or clot, #2 COVID-19 positive, #3 fever RICKY LORA APRN Nov 15, 2019 16:01
--- NOTE | 2019-11-15 16:17 | PDOC1 ---
History and Physical Date of Admission: Date of Admission DATE: 11/15/19 TIME: 16:14 Chief Complaint: Chief Complain: Fever and concern for dialysis catheter infection History of Present Illness: HPI: Patient is a 64-year-old female with past medical history of diabetes, dyslipidemia, hypertension, ESRD TTS, VENUS who comes to the emergency department with complaints of nonfunctioning dialysis catheter and fever of 101.5. Patient states that she has a newly placed dialysis catheter approximately about 2 weeks ago and she had access to this about 4 times. Today she was only able to complete half her dialysis session because the catheter was not working as well. Patient denies any chest pain, shortness of breath, abdominal pain, diarrhea, purulent drainage from the catheter, bleeding, or suprapubic tenderness. Past Medical/Surgical History: PMH/PSH: Past Medical History: Asthma, Diabetes-Type II, High Cholesterol, Hypertension, ESRD, VENUS Past Surgical History: , hernia; right chest diaylsis catheter Allergies: Allergies: Coded Allergies: Iodinated Contrast Media (Verified Adverse Reaction, Intermediate, Nausea and Vomiting, 11/11/19) Family History: Family History: Reviewed and none reported Social History: Social History: Current smoker Current Medications: Current Medications Current Medications Fentanyl Citrate (Fentanyl 2ml Vial) 25 mcg 1X ONCE IVP Last administered on 11/15/19at 14:07; Start 11/15/19 at 13:00; Stop 11/15/19 at 13:14; Status DC Acetaminophen (Tylenol) 1,000 mg 1X ONCE PO Last administered on 11/15/19at 14:06; Start 11/15/19 at 14:00; Stop 11/15/19 at 14:01; Status DC Active Scripts Active Polyethylene Glycol 3350 17 Gm Powd.pack 17 Gm PO QHS 30 Days Aspirin Ec (Aspirin) 81 Mg Tablet.dr 81 Mg PO DAILYWBKFT 30 Days Aldactone (Spironolactone) 25 Mg Tablet 25 Mg PO BID 30 Days Diltiazem 24Hr Cd (Diltiazem HCl) 240 Mg Cap.er.24h 240 Mg PO DAILY 30 Days Labetalol Hcl 100 Mg Tablet 300 Mg PO BID 30 Days Hydralazine Hcl 50 Mg Tablet 100 Mg PO TID 30 Days Humalog (Insulin Lispro) 100 Unit/1 Ml Insuln.pen 0 Units SQ TIDWMEALS 30 Days Fluticasone Propionate Nasal [place] (Fluticasone Propionate) 16 Gm [place].susp 2 [place] NS DAILY 30 Days Reported Isosorbide Mononitrate Er (Isosorbide Mononitrate) 60 Mg Tab.er.24h 60 Mg PO BID Protonix (Pantoprazole Sodium) 40 Mg Tablet.dr 40 Mg PO DAILYAC Trelegy Ellipta 100-62.5-25 (Fluticasone/Umeclidin/Vilanter) 1 Each Blst.w.dev 1 Each IH BID Albuterol Sulfate Hfa Inhaler (Albuterol Sulfate) 8.5 Gm Hfa.aer.ad 8.5 Gm IH ROS: Review of Systems Review of System REVIEW OF SYSTEMS: GENERAL: Denies weakness SKIN: No bruising, hair changes or rashes. EYES: No blurred, double or loss of vision. NOSE AND THROAT: No history of nosebleeds, hoarseness or sore throat. HEART: No history of palpitations, chest pain or shortness of breath on exertion. LUNGS: Denies cough, hemoptysis, wheezing or shortness of breath. GASTROINTESTINAL: Denies changes in appetite, nausea, vomiting, diarrhea or constipation. GENITOURINARY: No history of frequency, urgency, hesitancy or nocturia. NEUROLOGIC: Denies history of numbness, tingling, or tremor. PSYCHIATRIC: No history of panic, anxiety or depression. ENDOCRINE: No history of heat or cold intolerance, polyuria or polydipsia. EXTREMITIES: Denies joint pain, pain on walking or stiffness. Physical Exam: Vital Signs: Vital Signs Date Time Temp Pulse Resp B/P (MAP) Pulse Ox O2 Delivery O2 Flow Rate FiO2 11/15/19 15:44 99.3 82 16 193/86 (121) 95 Room Air 99.3 Physcial Exam: GEN: No apparent distress. Alert and oriented HEENT: Normal cephalic, atraumatic, external auditory canals are patent EYES: Extraocular muscles are intact, pupil are equally round and reactive to light and accommodation MUSCULOSKELETAL: Well developed , well nourished, good range of motion ENDOCRINE: No thyromegaly was palpated LYMPHATICS: No cervical chain or axillary nodes were noted HEMATOPOIETIC: No bruising NECK: Supple, no JVD, no thyromegaly was noted LUNGS: Clear to auscultation in all lung edwards without rhonchi or wheezing HEART: RRR, S!, S2 present. Peripheral pulses intact, no obvious murmurs noted ABDOMEN: Soft, nontender. Positive bowel sounds, no organomegaly, normal bowel sounds EXTREMITIES: Without clubbing, cyanosis, or edema. Pedal pulses intact. Negative Homans sign NEUROLOGIC: Normal speech and tone. A&O x 3, moves all extremities, no obvious focal deficits PSYCHIATRIC: Normal affect, normal mood. Stable SKIN: No ulcerations or rashes, good skin turgor, no jaundice VASCULAR: Good capillary refill, neurovascular bundle appears to be intact Labs: Labs: Laboratory Tests Test 11/15/19 12:55 White Blood Count 6.1 x10^3/uL (4.0-11.0) Red Blood Count 4.00 x10^6/uL (3.50-5.40) Hemoglobin 10.2 g/dL (12.0-15.5) Hematocrit 31.5 % (36.0-47.0) Mean Corpuscular Volume 79 fL (79-100) Mean Corpuscular Hemoglobin 26 pg (25-35) Mean Corpuscular Hemoglobin Concent 33 g/dL (31-37) Red Cell Distribution Width 15.2 % (11.5-14.5) Platelet Count 185 x10^3/uL (140-400) Neutrophils (%) (Auto) 66 % (31-73) Lymphocytes (%) (Auto) 20 % (24-48) Monocytes (%) (Auto) 12 % (0-9) Eosinophils (%) (Auto) 1 % (0-3) Basophils (%) (Auto) 1 % (0-3) Neutrophils # (Auto) 4.0 x10^3/uL (1.8-7.7) Lymphocytes # (Auto) 1.2 x10^3/uL (1.0-4.8) Monocytes # (Auto) 0.7 x10^3/uL (0.0-1.1) Eosinophils # (Auto) 0.0 x10^3/uL (0.0-0.7) Basophils # (Auto) 0.1 x10^3/uL (0.0-0.2) Prothrombin Time 13.3 SEC (11.7-14.0) Prothromb Time International Ratio 1.1 (0.8-1.1) Activated Partial Thromboplast Time 32 SEC (24-38) Sodium Level 136 mmol/L (136-145) Potassium Level 4.8 mmol/L (3.5-5.1) Chloride Level 102 mmol/L (98-107) Carbon Dioxide Level 25 mmol/L (21-32) Anion Gap 9 (6-14) Blood Urea Nitrogen 24 mg/dL (7-20) Creatinine 4.7 mg/dL (0.6-1.0) Estimated GFR (Cockcroft-Gault) 11.4 BUN/Creatinine Ratio 5 (6-20) Glucose Level 188 mg/dL (70-99) Lactic Acid Level 0.8 mmol/L (0.4-2.0) Calcium Level 8.4 mg/dL (8.5-10.1) Total Bilirubin 0.5 mg/dL (0.2-1.0) Direct Bilirubin 0.1 mg/dL (0.0-0.2) Aspartate Amino Transf (AST/SGOT) 17 U/L (15-37) Alanine Aminotransferase (ALT/SGPT) 16 U/L (14-59) Alkaline Phosphatase 114 U/L (46-116) Total Protein 6.6 g/dL (6.4-8.2) Albumin 2.4 g/dL (3.4-5.0) Albumin/Globulin Ratio 0.6 (1.0-1.7) Lipase 145 U/L (73-393) Laboratory Tests Test 11/15/19 12:55 White Blood Count 6.1 x10^3/uL (4.0-11.0) Red Blood Count 4.00 x10^6/uL (3.50-5.40) Hemoglobin 10.2 g/dL (12.0-15.5) Hematocrit 31.5 % (36.0-47.0) Mean Corpuscular Volume 79 fL (79-100) Mean Corpuscular Hemoglobin 26 pg (25-35) Mean Corpuscular Hemoglobin Concent 33 g/dL (31-37) Red Cell Distribution Width 15.2 % (11.5-14.5) Platelet Count 185 x10^3/uL (140-400) Neutrophils (%) (Auto) 66 % (31-73) Lymphocytes (%) (Auto) 20 % (24-48) Monocytes (%) (Auto) 12 % (0-9) Eosinophils (%) (Auto) 1 % (0-3) Basophils (%) (Auto) 1 % (0-3) Neutrophils # (Auto) 4.0 x10^3/uL (1.8-7.7) Lymphocytes # (Auto) 1.2 x10^3/uL (1.0-4.8) Monocytes # (Auto) 0.7 x10^3/uL (0.0-1.1) Eosinophils # (Auto) 0.0 x10^3/uL (0.0-0.7) Basophils # (Auto) 0.1 x10^3/uL (0.0-0.2) Prothrombin Time 13.3 SEC (11.7-14.0) Prothromb Time International Ratio 1.1 (0.8-1.1) Activated Partial Thromboplast Time 32 SEC (24-38) Sodium Level 136 mmol/L (136-145) Potassium Level 4.8 mmol/L (3.5-5.1) Chloride Level 102 mmol/L (98-107) Carbon Dioxide Level 25 mmol/L (21-32) Anion Gap 9 (6-14) Blood Urea Nitrogen 24 mg/dL (7-20) Creatinine 4.7 mg/dL (0.6-1.0) Estimated GFR (Cockcroft-Gault) 11.4 BUN/Creatinine Ratio 5 (6-20) Glucose Level 188 mg/dL (70-99) Lactic Acid Level 0.8 mmol/L (0.4-2.0) Calcium Level 8.4 mg/dL (8.5-10.1) Total Bilirubin 0.5 mg/dL (0.2-1.0) Direct Bilirubin 0.1 mg/dL (0.0-0.2) Aspartate Amino Transf (AST/SGOT) 17 U/L (15-37) Alanine Aminotransferase (ALT/SGPT) 16 U/L (14-59) Alkaline Phosphatase 114 U/L (46-116) Total Protein 6.6 g/dL (6.4-8.2) Albumin 2.4 g/dL (3.4-5.0) Albumin/Globulin Ratio 0.6 (1.0-1.7) Lipase 145 U/L (73-393) Images: Images All labs, images, and reports were reviewed by me personally PORTABLE CHEST 1V History: Reason: SHORT OF BREATH / Spl. Instructions: / History: Comparison: October 28, 2019 Findings: Patchy bibasilar opacities. No pleural effusion. No pneumothorax. Vascular congestion. Unchanged heart size. Right IJ central line with tip projecting over the cavoatrial junction. Elevation of the right hemidiaphragm. Impression: 1. Vascular congestion with patchy bibasilar opacities, may represent early pulmonary edema. Assessment/Plan Assessment/Plan Sepsis, rule out CLABSI ESRD TTS Diabetes type 2 Dyslipidemia Hypertension VENUS Admit to medicine Nephrology consult for dialysis Infectious disease consult for potential dialysis catheter infection We will start empiric IV antibiotics Pending blood cultures via dialysis catheter and peripheral draw Pending urinalysis and urine culture if urine is positive for bacteria Heparin/TPA through dialysis catheter to the INR 3.19 ICU electrolyte replaceme nt protocol none Replace another 40 now and then like 40 later Heparin for DVT prophylaxis ADA/renal diet Full code Discussed with RN and SW, patient may require retest for COVID before returning to [facility] dialysis centers Dispo pending ID and nephrology recommendations. Justicifation of Admission Dx: Justifications for Admission: Justification of Admission Dx: No Acute Renal Failure: Serum Cr > 4mg/dL OSCAR WILDE MD Nov 15, 2019 16:17
[2019-11-15] MEDS ORDERED: VANCOMYCIN 1GM IVPB FOR OMNI 250 ML IV ONE (17:00)
[2019-11-15] MEDS ORDERED: DEXTROSE 50% 25 GM / 50ML DISP.SYRIN. IV PRN (17:15)
[2019-11-15] MEDS ORDERED: VANCOMYCIN 2 GM in IV NORMAL SALINE 500ML BAG 500 ML IV ONE (17:30)
[2019-11-15] MEDS: VANCOMYCIN PER PHARMACY MC PRN (17:41)
--- NOTE | 2019-11-15 17:42 | NUR ---
Pharmacy Vancomycin Dosing Note S:Consulted to monitor and dose vancomycin started 11/15/19. O:HERRERA BERKOWITZ is a 64 year old F with poss dialysis cath infection . Height: 5 feet, 5 inches Weight: 97.0 kg [place] Body Weight: 57.00 Adjusted Body Weight: 73.00 Dosing Weight: Actual Other Antibiotics: Cefepime 1g q24h LABS: Last BUN: 24 Last Creatinine: 4.7 Creatinine Clearance: TThSa HD Last WBC: 6.1 Last Procalcitonin: Tmax (past 24 hours): 101.5 Vancomycin Dosing: Loading Dose: 2000 mg x1 Dosing Weight: Actual Target Trough: 10-20 A: Based on: weight and renal function P: 1. Dose Vancomycin 2000 mg IV One Time 2. Follow up Random level on 11/17/19 at 0500 3. Pharmacy will continue to monitor, follow and adjust therapy as needed. Yu Cummings RPH, 11/15/19 0645
[2019-11-15] MEDS: CEFEPIME HCL IV Push 1 GM VIAL. IVP SCH (18:01)
[2019-11-15 22:22] VITALS: BP 185/104
[2019-11-15] MEDS: SPIRONOLACTONE 25 MG TABLET PO SCH (22:47)
[2019-11-15] MEDS: LABETALOL HCL 100 MG TABLET. PO SCH (22:48)
[2019-11-15] MEDS: ISOSORBIDE MONONITRATE ER 30 MG TAB.ER.24H PO SCH (22:48)
[2019-11-15] MEDS: POLYETHYLENE GLYCOL 3350 17 GM PACKET. PO SCH (22:49)
[2019-11-15] MEDS: HEPARIN for SUB-Q USE 5,000 UNIT/ML VIAL. SQ SCH (22:52)
[2019-11-15 23:22] LABS: BILIRUBIN,URINE NEGATIVE (NEG); CLARITY,URINE CLEAR; COLOR,URINE YELLOW; NITRITE,URINE NEGATIVE (NEG); PH,URINE 7.5 (<5.0-8.0); PROTEIN,URINE >=300 mg/dL (NEG-TRACE); UROBILINOGEN,URINE 0.2 mg/dL (0.2 mg/dL)
[2019-11-15 23:27] LABS: SQUAMOUS EPITHELIAL CELL,UR FEW /LPF
[2019-11-15 23:28] LABS: BACTERIA,URINE MODERATE /HPF (0-FEW); RBC,URINE RARE /HPF (0-2)
[2019-11-15 23:48] VITALS: BP 134/74
[2019-11-16 02:50] VITALS: BP 165/90
--- NOTE | 2019-11-16 03:29 | EKG ---
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
--- NOTE | 2019-11-16 04:21 | EKG ---
[facility] [address] [place] [address] Test Date: 2019-11-15 Test Time: 12:42:58 Pat Name: HERRERA BERKOWITZ Department: Room: 671 1 Gender: F Cost Estimator: : 1955 Requested By: RICKY LORA Order Number: [id number] Reading MD: Measurements Intervals [place] Rate: 107 P: 45 CA: 180 QRS: 63 QRSD: 64 T: 52 QT: 304 QTc: 411 Interpretive Statements SINUS TACHYCARDIA LEFT ATRIAL ABNORMALITY QRS(T) CONTOUR ABNORMALITY CONSISTENT WITH ANTEROSEPTAL INFARCT PROBABLY OLD ABNORMAL ECG RI6.01 No previous ECG available for comparison
[2019-11-16 07:14] VITALS: BP 148/78
[2019-11-16] MEDS: INSULIN LISPRO 300 UNITS/3 ML VIAL. SQ SCH ×3 (08:00→17:00)
[2019-11-16] MEDS ORDERED: NON FORMULARY ITEM (Insulin Lispro (Humalog) 0 UNITS) SQ SCH (08:00)
[2019-11-16] MEDS: ACETAMINOPHEN 325 MG TABLET. PO PRN ×2 (08:40→17:48)
[2019-11-16] MEDS: ISOSORBIDE MONONITRATE ER 30 MG TAB.ER.24H PO SCH ×2 (08:40→20:47)
[2019-11-16] MEDS: HEPARIN for SUB-Q USE 5,000 UNIT/ML VIAL. SQ SCH ×2 (08:41→20:43)
[2019-11-16] MEDS: LABETALOL HCL 100 MG TABLET. PO SCH ×2 (08:41→20:46)
[2019-11-16] MEDS: PANTOPRAZOLE 40 MG TABLET.DR. PO SCH (08:42)
[2019-11-16] MEDS: SPIRONOLACTONE 25 MG TABLET PO SCH ×2 (08:42→20:47)
[2019-11-16] MEDS: ASPIRIN ENTERIC COATED 81 MG TABLET.DR. PO SCH (08:42)
[2019-11-16] MEDS: FLUTICASONE 50MCG/NASAL SPRAY 16GM BOTTLE. NS SCH (08:43)
--- NOTE | 2019-11-16 09:23 | PDOC ---
[employer] PROGRESS NOTE Chief Complaint Chief Complaint Hemodialysis Catheter dysfunction History of Present Illness History of Present Illness 11/16/2019 Patient seen and examined Charts reviewed Discussed with RN Sepsis, rule out CLABSI ESRD TTS Diabetes type 2 Dyslipidemia Hypertension VENUS Vascular congestion with patchy bibasilar opacities, may represent early pulmonary edema. Vitals/I&O Vitals/I&O: Vital Signs Date Time Temp Pulse Resp B/P (MAP) Pulse Ox O2 Delivery O2 Flow Rate FiO2 11/16/19 08:43 94 148/78 11/16/19 07:14 100.0 18 96 Nasal Cannula 2.0 100.0 I & O 11/15/19 11/15/19 11/16/19 15:00 23:00 07:00 Output Total 300 ml Balance -300 ml Physical Exam General: Alert, Oriented X3, Cooperative, No acute distress Heart: Regular rate, No murmurs Lungs: Clear Abdomen: Normal bowel sounds Extremities: No clubbing, No cyanosis, Normal pulses Skin: No rashes, No significant lesion Labs Labs: Laboratory Tests Test 11/15/19 12:55 11/15/19 21:42 11/15/19 23:00 11/16/19 07:35 White Blood Count 6.1 x10^3/uL (4.0-11.0) Red Blood Count 4.00 x10^6/uL (3.50-5.40) Hemoglobin 10.2 g/dL (12.0-15.5) Hematocrit 31.5 % (36.0-47.0) Mean Corpuscular Volume 79 fL (79-100) Mean Corpuscular Hemoglobin 26 pg (25-35) Mean Corpuscular Hemoglobin Concent 33 g/dL (31-37) Red Cell Distribution Width 15.2 % (11.5-14.5) Platelet Count 185 x10^3/uL (140-400) Neutrophils (%) (Auto) 66 % (31-73) Lymphocytes (%) (Auto) 20 % (24-48) Monocytes (%) (Auto) 12 % (0-9) Eosinophils (%) (Auto) 1 % (0-3) Basophils (%) (Auto) 1 % (0-3) Neutrophils # (Auto) 4.0 x10^3/uL (1.8-7.7) Lymphocytes # (Auto) 1.2 x10^3/uL (1.0-4.8) Monocytes # (Auto) 0.7 x10^3/uL (0.0-1.1) Eosinophils # (Auto) 0.0 x10^3/uL (0.0-0.7) Basophils # (Auto) 0.1 x10^3/uL (0.0-0.2) Prothrombin Time 13.3 SEC (11.7-14.0) Prothromb Time International Ratio 1.1 (0.8-1.1) Activated Partial Thromboplast Time 32 SEC (24-38) Sodium Level 136 mmol/L (136-145) Potassium Level 4.8 mmol/L (3.5-5.1) Chloride Level 102 mmol/L (98-107) Carbon Dioxide Level 25 mmol/L (21-32) Anion Gap 9 (6-14) Blood Urea Nitrogen 24 mg/dL (7-20) Creatinine 4.7 mg/dL (0.6-1.0) Estimated GFR (Cockcroft-Gault) 11.4 BUN/Creatinine Ratio 5 (6-20) Glucose Level 188 mg/dL (70-99) Lactic Acid Level 0.8 mmol/L (0.4-2.0) Calcium Level 8.4 mg/dL (8.5-10.1) Total Bilirubin 0.5 mg/dL (0.2-1.0) Direct Bilirubin 0.1 mg/dL (0.0-0.2) Aspartate Amino Transf (AST/SGOT) 17 U/L (15-37) Alanine Aminotransferase (ALT/SGPT) 16 U/L (14-59) Alkaline Phosphatase 114 U/L (46-116) Total Protein 6.6 g/dL (6.4-8.2) Albumin 2.4 g/dL (3.4-5.0) Albumin/Globulin Ratio 0.6 (1.0-1.7) Lipase 145 U/L (73-393) Glucose (Fingerstick) 107 mg/dL (70-99) 101 mg/dL (70-99) Urine Collection Type Unknown Urine Color Yellow Urine Clarity Clear Urine pH 7.5 (<5.0-8.0) Urine Specific [place] 1.015 (1.000-1.030) Urine Protein >=300 mg/dL (NEG-TRACE) Urine Glucose (UA) Negative mg/dL (NEG) Urine Ketones (Stick) Negative mg/dL (NEG) Urine Blood Negative (NEG) Urine Nitrite Negative (NEG) Urine Bilirubin Negative (NEG) Urine Urobilinogen Dipstick 0.2 mg/dL (0.2 mg/dL) Urine Leukocyte Esterase Negative (NEG) Urine RBC Rare /HPF (0-2) Urine WBC 1-4 /HPF (0-4) Urine Squamous Epithelial Cells Few /LPF Urine Bacteria Moderate /HPF (0-FEW) Urine Mucus Slight /LPF Assessment and Plan Assessmemt and Plan Problems Medical Problems: (1) COVID-19 virus detected Status: Acute (2) Dialysis catheter clot or failure Status: Acute (3) Fever Status: Acute Assessment Sepsis, rule out CLABSI ESRD TTS Diabetes type 2 Dyslipidemia Hypertension VENUS Vascular congestion with patchy bibasilar opacities, may represent early pulmonary edema. Plan Consult Nephrology consult for dialysis Consult Infectious disease consult for potential dialysis catheter infection IV antibiotics DVT prophylaxis ADA/renal diet Full code Comment Review of Relevant I have reviewed the following items munir (where applicable) has been applied. Medications: Current Medications Medications (Trade) Dose Ordered Sig/Howard Route PRN Reason Start Time Stop Time Status Last Admin Dose Admin Fentanyl Citrate (Fentanyl 2ml Vial) 25 mcg 1X ONCE IVP 11/15/19 13:00 11/15/19 13:14 DC 11/15/19 14:07 Acetaminophen (Tylenol) 1,000 mg 1X ONCE PO 11/15/19 14:00 11/15/19 14:01 DC 11/15/19 14:06 Cefepime HCl (Maxipime) 1 gm Q24H IVP 11/15/19 17:30 11/15/19 18:01 Vancomycin HCl (Vanco Per Pharmacy) 1 each PRN DAILY PRN MC SEE COMMENTS 11/15/19 17:00 11/15/19 17:41 Heparin Sodium (Porcine) (Heparin Sodium) 5,000 unit Q12HR SQ 11/15/19 21:00 11/16/19 08:41 Aspirin (Ecotrin) 81 mg DAILYWBKFT PO 11/16/19 08:00 11/16/19 08:42 Diltiazem HCl (Cardizem 24hr Cd) 240 mg DAILY PO 11/16/19 09:00 11/16/19 08:43 Fluticasone Propionate (Flonase) 2 spray DAILY NS 11/16/19 09:00 11/16/19 08:43 Hydralazine HCl (Apresoline) 100 mg TID PO 11/15/19 21:00 11/16/19 08:42 Labetalol HCl (Trandate) 300 mg BID PO 11/15/19 21:00 11/16/19 08:41 Pantoprazole Sodium (Protonix) 40 mg DAILYAC PO 11/16/19 07:30 11/16/19 08:42 Polyethylene Glycol (miraLAX PACKET) 17 gm QHS PO 11/15/19 21:00 11/15/19 22:49 Spironolactone (Aldactone) 25 mg BID PO 11/15/19 21:00 11/16/19 08:42 Isosorbide Mononitrate (Imdur) 60 mg BID PO 11/15/19 21:00 11/16/19 08:40 Vancomycin HCl 2 gm/Sodium Chloride 500 ml @ 250 mls/hr 1X ONCE IV 11/15/19 17:30 11/15/19 19:29 DC 11/15/19 18:02 Acetaminophen (Tylenol) 650 mg PRN Q6HRS PRN PO pain 11/16/19 08:30 11/16/19 08:40 Justicifation of Admission Dx: Justifications for Admission: Justification of Admission Dx: Yes Acute Renal Failure: Serum Cr > 4mg/dL RAH MOFFETT III DO Nov 16, 2019 09:23
--- NOTE | 2019-11-16 10:29 | PDOC2 ---
CONSULT Date of Consult Date of Consult DATE: 11/16/19 TIME: 10:21 Reason for Consult Reason for Consult: ESRD AND NON FUNCTIONING HD CATHETER Referring Physician Referring Physician: CHANI Identification/Chief Complaint Chief Complaint FEVERS AND SOB Source Source: Chart review History of Present Illness Reason for Visit: THIS IS A 64 YR OLD PT WITH SOB. HAS BEEN RECENTLY DX WITH COVID 19. HAS ESRD AND IS ON HD TTS. HAD HD THURSDAY BUT ONLY FINISHED HALF HER TX DUE TO POORLY FUNCTIONING CATHETER. SHE IS ADMITTED WITH A FEVER OF 101.5 AND CURRENTLY ON AN TIBIOTICS FOR POSSIBLE CLABSI. LABS ARE C/W ESRD. ESRD DUE TO DM II AND HTN. CXRAY NEG EXCEPT FOR MILD VASCULAR CONGESTION Past Medical History Cardiovascular: HTN, Hyperlipidemia, Other Pulmonary: COPD, Other CENTRAL NERVOUS SYSTEM: Migraine GI: Constipation, Diverticulosis, GERD, GI bleed, Peptic Ulcer disease Heme/Onc: No pertinent hx Hepatobiliary: Hep A/B/C Psych: Anxiety, Depression Rheumatologic: No pertinent hx Infectious disease: No pertinent hx Renal/: Chronic renal insuff Endocrine: Diabetes Past Surgical History Past Surgical History: , Hernia Repair, Colon Resection, Other Family History Family History: No Significant Social History ALCOHOL: none Drugs: None Lives: with Family Current Problem List Problem List Problems Medical Problems: (1) COVID-19 virus detected Status: Acute (2) Dialysis catheter clot or failure Status: Acute (3) Fever Status: Acute Current Medications Current Medications Current Medications Fentanyl Citrate (Fentanyl 2ml Vial) 25 mcg 1X ONCE IVP Last administered on 11/15/19at 14:07; Start 11/15/19 at 13:00; Stop 11/15/19 at 13:14; Status DC Acetaminophen (Tylenol) 1,000 mg 1X ONCE PO Last administered on 11/15/19at 14:06; Start 11/15/19 at 14:00; Stop 11/15/19 at 14:01; Status DC Cefepime HCl (Maxipime) 1 gm Q24H IVP Last administered on 11/15/19at 18:01; Start 11/15/19 at 17:30 Vancomycin HCl (Vanco Per Pharmacy) 1 each PRN DAILY PRN MC SEE COMMENTS Last administered on 11/15/19at 17:41; Start 11/15/19 at 17:00 Vancomycin HCl 250 ml @ 250 mls/hr 1X ONCE IV ; Start 11/15/19 at 17:00; Stop 11/15/19 at 17:59; Status UNV Heparin Sodium (Porcine) (Heparin Sodium) 5,000 unit Q12HR SQ Last administered on 11/16/19 08:41; Start 11/15/19 at 21:00 Aspirin (Ecotrin) 81 mg DAILYWBKFT PO Last administered on 11/16/19 08:42; Start 11/16/19 at 08:00 Diltiazem HCl (Cardizem 24hr Cd) 240 mg DAILY PO Last administered on 11/16/19 08:43; Start 11/16/19 at 09:00 Fluticasone Propionate (Flonase) 2 spray DAILY NS Last administered on 11/16/19 08:43; Start 11/16/19 at 09:00 Hydralazine HCl (Apresoline) 100 mg TID PO Last administered on 11/16/19 08:42; Start 11/15/19 at 21:00 Labetalol HCl (Trandate) 300 mg BID PO Last administered on 11/16/19 08:41; Start 11/15/19 at 21:00 Pantoprazole Sodium (Protonix) 40 mg DAILYAC PO Last administered on 11/16/19 08:42; Start 11/16/19 at 07:30 Polyethylene Glycol (miraLAX PACKET) 17 gm QHS PO Last administered on 11/15/19at 22:49; Start 11/15/19 at 21:00 Spironolactone (Aldactone) 25 mg BID PO Last administered on 11/16/19 08:42; Start 11/15/19 at 21:00 Non-Formulary Medication (Insulin Lispro (Humalog)) TIDWMEALS SQ ; Start 11/16/19 at 08:00; Status UNV Isosorbide Mononitrate (Imdur) 60 mg BID PO Last administered on 11/16/19at 08:40; Start 11/15/19 at 21:00 Vancomycin HCl 2 gm/Sodium Chloride 500 ml @ 250 mls/hr 1X ONCE IV Last administered on 11/15/19at 18:02; Start 11/15/19 at 17:30; Stop 11/15/19 at 19:29; Status DC Dextrose (Dextrose 50%-Water Syringe) 12.5 gm PRN Q15MIN PRN IV SEE COMMENTS; Start 11/15/19 at 17:15 Insulin Human Lispro (HumaLOG) 0-7 UNITS TIDWMEALS SQ ; Start 11/16/19 at 08:00 Vancomycin HCl (Vancomycin Random Level) 1 each 1X ONCE MC ; Start 11/17/19 at 05:00; Stop 11/17/19 at 05:01 Acetaminophen (Tylenol) 650 mg PRN Q6HRS PRN PO pain Last administered on 11/16/19at 08:40; Start 11/16/19 at 08:30 Multivitamins/ Minerals (I-Onur) 1 tab DAILY PO ; Start 11/17/19 at 09:00 Active Scripts Active Polyethylene Glycol 3350 17 Gm Powd.pack 17 Gm PO QHS 30 Days Aspirin Ec (Aspirin) 81 Mg Tablet.dr 81 Mg PO DAILYWBKFT 30 Days Aldactone (Spironolactone) 25 Mg Tablet 25 Mg PO BID 30 Days Diltiazem 24Hr Cd (Diltiazem HCl) 240 Mg Cap.er.24h 240 Mg PO DAILY 30 Days Labetalol Hcl 100 Mg Tablet 300 Mg PO BID 30 Days Hydralazine Hcl 50 Mg Tablet 100 Mg PO TID 30 Days Humalog (Insulin Lispro) 100 Unit/1 Ml Insuln.pen 0 Units SQ TIDWMEALS 30 Days Fluticasone Propionate Nasal [place] (Fluticasone Propionate) 16 Gm Griffin.susp 2 Griffin NS DAILY 30 Days Reported Isosorbide Mononitrate Er (Isosorbide Mononitrate) 60 Mg Tab.er.24h 60 Mg PO BID Protonix (Pantoprazole Sodium) 40 Mg Tablet.dr 40 Mg PO DAILYAC Trelegy Ellipta 100-62.5-25 (Fluticasone/Umeclidin/Vilanter) 1 Each Blst.w.dev 1 Each IH BID Albuterol Sulfate Hfa Inhaler (Albuterol Sulfate) 8.5 Gm Hfa.aer.ad 8.5 Gm IH Allergies Allergies: Coded Allergies: Iodinated Contrast Media (Verified Adverse Reaction, Intermediate, Nausea and Vomiting, 11/11/19) ROS General: YES: Fatigue PSYCHOLOGICAL ROS: YES: Anxiety, Depression Eyes: Yes Decreased vision HEENT: YES: Healeaches ALLERGY AND IMMUNOLOGY: YES: Seasonal Allergies Respiratory: YES: Cough, Shortness of breath Cardiovascular: yes Orthopnea Gastrointestinal: Yes Constipation Genitourinary: YES Other (ANURIA) Musculoskeletal: Yes Muscular Weakness Neurological: Yes Weakness Skin: Yes Dry Skin Physical Exam General: Alert, Oriented X3, Cooperative, No acute distress HEENT: Atraumatic, PERRLA Lungs: Clear to auscultation Heart: Regular rate Abdomen: Normal bowel sounds, Soft, No tenderness Skin: No rashes Neuro: Normal speech, Sensation intact Psych/Mental Status: Mental status NL, Mood NL MUSCULOSKELETAL: No deformity, No swelling Vitals VITALS Vital Signs Date Time Temp Pulse Resp B/P (MAP) Pulse Ox O2 Delivery O2 Flow Rate FiO2 11/16/19 08:43 94 148/78 11/16/19 07:14 100.0 18 96 Nasal Cannula 2.0 100.0 Labs Labs Laboratory Tests Test 11/15/19 12:55 11/15/19 21:42 11/15/19 23:00 11/16/19 07:35 White Blood Count 6.1 x10^3/uL (4.0-11.0) Red Blood Count 4.00 x10^6/uL (3.50-5.40) Hemoglobin 10.2 g/dL (12.0-15.5) Hematocrit 31.5 % (36.0-47.0) Mean Corpuscular Volume 79 fL (79-100) Mean Corpuscular Hemoglobin 26 pg (25-35) Mean Corpuscular Hemoglobin Concent 33 g/dL (31-37) Red Cell Distribution Width 15.2 % (11.5-14.5) Platelet Count 185 x10^3/uL (140-400) Neutrophils (%) (Auto) 66 % (31-73) Lymphocytes (%) (Auto) 20 % (24-48) Monocytes (%) (Auto) 12 % (0-9) Eosinophils (%) (Auto) 1 % (0-3) Basophils (%) (Auto) 1 % (0-3) Neutrophils # (Auto) 4.0 x10^3/uL (1.8-7.7) Lymphocytes # (Auto) 1.2 x10^3/uL (1.0-4.8) Monocytes # (Auto) 0.7 x10^3/uL (0.0-1.1) Eosinophils # (Auto) 0.0 x10^3/uL (0.0-0.7) Basophils # (Auto) 0.1 x10^3/uL (0.0-0.2) Prothrombin Time 13.3 SEC (11.7-14.0) Prothromb Time International Ratio 1.1 (0.8-1.1) Activated Partial Thromboplast Time 32 SEC (24-38) Sodium Level 136 mmol/L (136-145) Potassium Level 4.8 mmol/L (3.5-5.1) Chloride Level 102 mmol/L (98-107) Carbon Dioxide Level 25 mmol/L (21-32) Anion Gap 9 (6-14) Blood Urea Nitrogen 24 mg/dL (7-20) Creatinine 4.7 mg/dL (0.6-1.0) Estimated GFR (Cockcroft-Gault) 11.4 BUN/Creatinine Ratio 5 (6-20) Glucose Level 188 mg/dL (70-99) Lactic Acid Level 0.8 mmol/L (0.4-2.0) Calcium Level 8.4 mg/dL (8.5-10.1) Total Bilirubin 0.5 mg/dL (0.2-1.0) Direct Bilirubin 0.1 mg/dL (0.0-0.2) Aspartate Amino Transf (AST/SGOT) 17 U/L (15-37) Alanine Aminotransferase (ALT/SGPT) 16 U/L (14-59) Alkaline Phosphatase 114 U/L (46-116) Total Protein 6.6 g/dL (6.4-8.2) Albumin 2.4 g/dL (3.4-5.0) Albumin/Globulin Ratio 0.6 (1.0-1.7) Lipase 145 U/L (73-393) Glucose (Fingerstick) 107 mg/dL (70-99) 101 mg/dL (70-99) Urine Collection Type Unknown Urine Color Yellow Urine Clarity Clear Urine pH 7.5 (<5.0-8.0) Urine Specific [place] 1.015 (1.000-1.030) Urine Protein >=300 mg/dL (NEG-TRACE) Urine Glucose (UA) Negative mg/dL (NEG) Urine Ketones (Stick) Negative mg/dL (NEG) Urine Blood Negative (NEG) Urine Nitrite Negative (NEG) Urine Bilirubin Negative (NEG) Urine Urobilinogen Dipstick 0.2 mg/dL (0.2 mg/dL) Urine Leukocyte Esterase Negative (NEG) Urine RBC Rare /HPF (0-2) Urine WBC 1-4 /HPF (0-4) Urine Squamous Epithelial Cells Few /LPF Urine Bacteria Moderate /HPF (0-FEW) Urine Mucus Slight /LPF Laboratory Tests Test 11/15/19 12:55 11/15/19 21:42 11/15/19 23:00 11/16/19 07:35 White Blood Count 6.1 x10^3/uL (4.0-11.0) Red Blood Count 4.00 x10^6/uL (3.50-5.40) Hemoglobin 10.2 g/dL (12.0-15.5) Hematocrit 31.5 % (36.0-47.0) Mean Corpuscular Volume 79 fL (79-100) Mean Corpuscular Hemoglobin 26 pg (25-35) Mean Corpuscular Hemoglobin Concent 33 g/dL (31-37) Red Cell Distribution Width 15.2 % (11.5-14.5) Platelet Count 185 x10^3/uL (140-400) Neutrophils (%) (Auto) 66 % (31-73) Lymphocytes (%) (Auto) 20 % (24-48) Monocytes (%) (Auto) 12 % (0-9) Eosinophils (%) (Auto) 1 % (0-3) Basophils (%) (Auto) 1 % (0-3) Neutrophils # (Auto) 4.0 x10^3/uL (1.8-7.7) Lymphocytes # (Auto) 1.2 x10^3/uL (1.0-4.8) Monocytes # (Auto) 0.7 x10^3/uL (0.0-1.1) Eosinophils # (Auto) 0.0 x10^3/uL (0.0-0.7) Basophils # (Auto) 0.1 x10^3/uL (0.0-0.2) Prothrombin Time 13.3 SEC (11.7-14.0) Prothromb Time International Ratio 1.1 (0.8-1.1) Activated Partial Thromboplast Time 32 SEC (24-38) Sodium Level 136 mmol/L (136-145) Potassium Level 4.8 mmol/L (3.5-5.1) Chloride Level 102 mmol/L (98-107) Carbon Dioxide Level 25 mmol/L (21-32) Anion Gap 9 (6-14) Blood Urea Nitrogen 24 mg/dL (7-20) Creatinine 4.7 mg/dL (0.6-1.0) Estimated GFR (Cockcroft-Gault) 11.4 BUN/Creatinine Ratio 5 (6-20) Glucose Level 188 mg/dL (70-99) Lactic Acid Level 0.8 mmol/L (0.4-2.0) Calcium Level 8.4 mg/dL (8.5-10.1) Total Bilirubin 0.5 mg/dL (0.2-1.0) Direct Bilirubin 0.1 mg/dL (0.0-0.2) Aspartate Amino Transf (AST/SGOT) 17 U/L (15-37) Alanine Aminotransferase (ALT/SGPT) 16 U/L (14-59) Alkaline Phosphatase 114 U/L (46-116) Total Protein 6.6 g/dL (6.4-8.2) Albumin 2.4 g/dL (3.4-5.0) Albumin/Globulin Ratio 0.6 (1.0-1.7) Lipase 145 U/L (73-393) Glucose (Fingerstick) 107 mg/dL (70-99) 101 mg/dL (70-99) Urine Collection Type Unknown Urine Color Yellow Urine Clarity Clear Urine pH 7.5 (<5.0-8.0) Urine Specific [place] 1.015 (1.000-1.030) Urine Protein >=300 mg/dL (NEG-TRACE) Urine Glucose (UA) Negative mg/dL (NEG) Urine Ketones (Stick) Negative mg/dL (NEG) Urine Blood Negative (NEG) Urine Nitrite Negative (NEG) Urine Bilirubin Negative (NEG) Urine Urobilinogen Dipstick 0.2 mg/dL (0.2 mg/dL) Urine Leukocyte Esterase Negative (NEG) Urine RBC Rare /HPF (0-2) Urine WBC 1-4 /HPF (0-4) Urine Squamous Epithelial Cells Few /LPF Urine Bacteria Moderate /HPF (0-FEW) Urine Mucus Slight /LPF Assessment/Plan Assessment/Plan IMP COVID 19 POS DYSPNEA FEVERS PROB CLABSI DM II HTN ANEMIA ESRD MALFUNCTIONING HD CATHETER PLAN ANTIBIOTICS D/C TDC FOR TEMP HD CATHETER HD TOMORROW LAURA NEEDED TYRONE DONNELLY MD Nov 16, 2019 10:29
[2019-11-16 11:15] VITALS: BP 106/55
[2019-11-16] MEDS ORDERED: LIDOCAINE WITH 8.4% SOD BICARB 3 ML DISP.SYRIN. ONE (13:58)
[2019-11-16] MEDS ORDERED: LIDOCAINE WITH 8.4% SOD BICARB 3 ML DISP.SYRIN. INJ ONE (14:30)
[2019-11-16] MEDS: VANCOMYCIN PER PHARMACY MC PRN (15:13)
[2019-11-16 15:37] VITALS: BP 135/63
--- NOTE | 2019-11-16 16:13 | RAD ---
11/16/2019 2:06 PM Procedure: 1. Removal of right internal jugular tunneled hemodialysis catheter at the bedside 2. Placement of a right internal jugular temporary dialysis catheter Clinical Indication: Nonfunctional tunneled hemodialysis catheter Discussion: The risks and benefits of the procedure were discussed the patient and/or their vaccine customer representative. Informed consent was obtained. A timeout procedure was performed. The pre-existing tunnel hemodialysis catheter was removed with traction. Manual pressure was held. Next, a temporary hemodialysis catheter was placed at the bedside. . All elements of maximal sterile barrier technique including the use of a cap, mask, sterile gown, sterile gloves, large sterile sheet, appropriate hand hygiene, and 2% chlorhexidine for cutaneous antisepsis (or acceptable alternative antiseptic per current guidelines) were followed for this procedure. The patient was prepped and draped in the usual sterile fashion. Ultrasound interrogation of the right neck revealed patency and compressibility of the right internal jugular vein. A 21-gauge micropuncture was then used to gain access to this vein under ultrasound guidance. A hard copy ultrasound image was recorded. A guidewire was advanced centrally. 5 [place] sheath was placed. Over a wire following dilatation, dual-lumen temporary hemodialysis catheter was advanced centrally. Catheter was found to flush and aspirate normally. Follow-up chest radiograph demonstrates tip at the in the proximal right atrium, appropriately positioned. Catheter secured in place and a sterile dressing was applied. No immediate complications were identified. Impression: 1. Removal of right internal jugular tunneled hemodialysis catheter 2. Placement of a new right internal jugular temporary dialysis catheter
--- NOTE | 2019-11-16 16:51 | RAD ---
EXAM: CHEST AP ONLY INDICATION: Reason: PLACEMENT OF TEMPORARY HD CATHETER / Spl. Instructions: / History: . TECHNIQUE: Single view COMPARISON: 11/07/2019 FINDINGS: Right dual-lumen central venous catheter is present with a jugular approach, tip terminating near the cavoatrial junction. This replaces the previously indwelling right dual-lumen central venous catheter. Heart is mildly enlarged. The great vessels appear unremarkable. There is no hilar or mediastinal mass. Lungs show bilateral lower lobe interstitial opacities. . There is no pleural effusion or pneumothorax. There are no significant osseous abnormalities. IMPRESSION: Interval exchange of the right jugular approach dialysis catheter with findings of cardiomegaly and bilateral lower lobe interstitial opacities that could reflect pulmonary fluid overload.. Electronically signed by: Ilan Burgos MD (11/16/2019 4:47 PM) [id number]
--- NOTE | 2019-11-16 17:16 | NUR ---
SW following. Reviewed chart and spoke with RN. Pt recently discharged from [facility] on 11/03/2019 with a new dialysis setup. Pt does out-patient dialysis at [facility], , (fax) on Mondays, Wednesdays, and Fridays. Pt currently on 2l 02 and IV Vancomycin. SW attempted to call into pt's room but there was no answer. Pt is COVID Positive. Pt will require a chair time at the [facility] [place] location on discharge per COVID status. SW to continue following.
[2019-11-16] MEDS: CEFEPIME HCL IV Push 1 GM VIAL. IVP SCH (17:48)
[2019-11-16 19:23] VITALS: BP 159/83
[2019-11-16] MEDS: POLYETHYLENE GLYCOL 3350 17 GM PACKET. PO SCH (20:43)
[2019-11-16] MEDS: LACTOBACILLUS RHAMNOSUS GG 1 CAPSULE. PO SCH (20:43)
[2019-11-16 23:15] VITALS: BP 100/50
[2019-11-17] MEDS: ZOLPIDEM 5 MG TABLET. PO PRN ×2 (00:17→20:51)
[2019-11-17 03:23] VITALS: BP 172/85
[2019-11-17] MEDS ORDERED: VANCOMYCIN RANDOM LEVEL. MC ONE (05:00)
[2019-11-17 07:00] VITALS: BP 158/85
[2019-11-17] MEDS: INSULIN LISPRO 300 UNITS/3 ML VIAL. SQ SCH ×3 (08:00→17:00)
[2019-11-17] MEDS: PANTOPRAZOLE 40 MG TABLET.DR. PO SCH (08:20)
[2019-11-17] MEDS: MULTIVITAMIN I-VITE TABLET. PO SCH (08:20)
[2019-11-17] MEDS: LACTOBACILLUS RHAMNOSUS GG 1 CAPSULE. PO SCH ×2 (08:21→20:50)
[2019-11-17] MEDS: ACETAMINOPHEN 325 MG TABLET. PO PRN ×3 (08:21→20:50)
[2019-11-17] MEDS: ASPIRIN ENTERIC COATED 81 MG TABLET.DR. PO SCH (08:21)
[2019-11-17] MEDS: HEPARIN for SUB-Q USE 5,000 UNIT/ML VIAL. SQ SCH ×2 (08:22→20:53)
[2019-11-17] MEDS ORDERED: IV NORMAL SALINE 1000ML BAG 1,000 ML IV PRN ×2 (08:31)
[2019-11-17] MEDS ORDERED: diphenhydrAMINE 50 MG/ML VIAL IV PRN ×2 (08:45)
[2019-11-17] MEDS ORDERED: ALBUMIN HUMAN 25% 200 ML IV PRN (08:45)
[2019-11-17] MEDS ORDERED: DIALYSIS PATIENT. MC PRN (08:45)
[2019-11-17] MEDS: FLUTICASONE 50MCG/NASAL SPRAY 16GM BOTTLE. NS SCH (09:00)
[2019-11-17] MEDS: SPIRONOLACTONE 25 MG TABLET PO SCH ×2 (12:20→20:51)
[2019-11-17] MEDS: ISOSORBIDE MONONITRATE ER 30 MG TAB.ER.24H PO SCH ×2 (12:21→20:51)
[2019-11-17] MEDS: LABETALOL HCL 100 MG TABLET. PO SCH ×2 (12:22→20:50)
--- NOTE | 2019-11-17 12:26 | PDOC ---
[employer] PROGRESS NOTE Chief Complaint Chief Complaint Hemodialysis Catheter dysfunction History of Present Illness History of Present Illness 11/17/2019 Patient seen and examined Patient undergoing hemodialysis Charts reviewed Discussed with RN 11/16/2019 Patient seen and examined Charts reviewed Discussed with RN Sepsis, rule out CLABSI ESRD TTS Diabetes type 2 Dyslipidemia Hypertension VENUS Vascular congestion with patchy bibasilar opacities, may represent early pulmonary edema. Vitals/I&O Vitals/I&O: Vital Signs Date Time Temp Pulse Resp B/P (MAP) Pulse Ox O2 Delivery O2 Flow Rate FiO2 11/17/19 12:22 90 166/75 11/17/19 08:00 Room Air 11/17/19 07:00 101.5 16 94 101.5 11/16/19 19:23 I & O 11/16/19 11/16/19 11/17/19 15:00 23:00 07:00 Intake Total 180 ml 200 ml 180 ml Output Total 150 ml Balance 180 ml 50 ml 180 ml Physical Exam General: Alert, Oriented X3, Cooperative, No acute distress Heart: Regular rate Lungs: Clear Abdomen: Normal bowel sounds, Soft, No tenderness Extremities: No clubbing, No cyanosis, Normal pulses Skin: No rashes Labs Labs: Laboratory Tests Test 11/16/19 15:31 11/16/19 20:37 11/17/19 03:00 11/17/19 07:25 Glucose (Fingerstick) 113 mg/dL (70-99) 107 mg/dL (70-99) 114 mg/dL (70-99) Random Vancomycin Level 21.0 mcg/mL Assessment and Plan Assessmemt and Plan Problems Medical Problems: (1) COVID-19 virus detected Status: Acute (2) Dialysis catheter clot or failure Status: Acute (3) Fever Status: Acute Assessment Sepsis, rule out CLABSI ESRD TTS Diabetes type 2 Dyslipidemia Hypertension VENUS Vascular congestion with patchy bibasilar opacities, may represent early pulmonary edema. Plan Hemodialysis M/W/F Trend Labs Full code Home Meds ADA/Renal Diet IV antibiotics Appreciate subspeciality input Comment Review of Relevant I have reviewed the following items munir (where applicable) has been applied. Medications: Current Medications Medications (Trade) Dose Ordered Sig/Howard Route PRN Reason Start Time Stop Time Status Last Admin Dose Admin Vancomycin HCl (Vancomycin Random Level) 1 each 1X ONCE MC 11/17/19 05:00 11/17/19 05:01 DC 11/17/19 05:00 Multivitamins/ Minerals (I-Onur) 1 tab DAILY PO 11/17/19 09:00 11/17/19 08:20 Lidocaine HCl (Buffered Lidocaine 1%) 5 ml 1X ONCE INJ 11/16/19 14:30 11/16/19 14:31 DC 11/16/19 14:41 Lactobacillus Rhamnosus (Culturelle) 1 cap BID PO 11/16/19 21:00 11/17/19 08:21 Zolpidem Tartrate (Ambien) 5 mg PRN QHS PRN PO INSOMNIA 11/17/19 00:15 11/17/19 00:17 Justicifation of Admission Dx: Justifications for Admission: Justification of Admission Dx: Yes Acute Renal Failure: Serum Cr > 4mg/dL RAH MOFFETT III DO Nov 17, 2019 12:26
[2019-11-17 12:30] VITALS: BP 144/69
--- NOTE | 2019-11-17 13:09 | PDOC ---
Renal-Progress Notes Subjective Notes Notes NO NEW COMPLAINTS History of Present Illness Hx of present illness STABLE Vitals Vitals Vital Signs Date Time Temp Pulse Resp B/P (MAP) Pulse Ox O2 Delivery O2 Flow Rate FiO2 11/17/19 12:22 90 166/75 11/17/19 08:00 Room Air 11/17/19 07:00 101.5 16 94 101.5 11/16/19 19:23 Weight Weight [ ] I.O. Intake and Output Intake and Output 11/17/19 07:00 Intake Total 560 ml Output Total 150 ml Balance 410 ml Intake Oral 560 ml Output Urine Total 150 ml Labs Labs Laboratory Tests Test 11/16/19 15:31 11/16/19 20:37 11/17/19 03:00 11/17/19 07:25 Glucose (Fingerstick) 113 mg/dL (70-99) 107 mg/dL (70-99) 114 mg/dL (70-99) Random Vancomycin Level 21.0 mcg/mL Test 11/17/19 12:36 Glucose (Fingerstick) 87 mg/dL (70-99) Micro Micro Microbiology 11/15/19 Urine Culture - Final, Complete 11/15/19 Blood Culture - Preliminary, Resulted NO GROWTH AFTER 1 DAY Review of Systems Constitutional: yes: chills, fever Ears/Nose/Throat: Yes: no symptom reported Eyes: Yes: no symptom reported Pulmonary: Yes no symptom reported Gastrointestional: Yes: no symptom reported Genitourinary: Yes: no symptom reported Musculoskeletal: Yes: no symptom reported Skin: Yes no symptom reported Psychiatric/Neurological: Yes: no symptom reported Physical Exam General Appearance: no apparent distress Skin: warm Respiratory: bilateral CTA Heart: S1S2 Abdomen: soft, bowel sounds present Genitourinary: bladder flat Extremities: pulses present Neurology: alert Assessment Assessment IMP COVID 19 POS DYSPNEA FEVERS-PERSIST PROB CLABSI DM II HTN ANEMIA ESRD MALFUNCTIONING HD CATHETER PLAN ANTIBIOTICS S/P REMOVAL OF TUNNELED HD CATHETER S/P TEMP HD CATHETER HD TODAY UF TO DW LAURA NEEDED ASK ID TO SEE TYRONE DONNELLY MD Nov 17, 2019 13:09
[2019-11-17 14:32] VITALS: BP 122/57
[2019-11-17] MEDS: VANCOMYCIN PER PHARMACY MC PRN ×2 (15:52→15:56)
--- NOTE | 2019-11-17 15:54 | NUR ---
Pharmacy Vancomycin Dosing Note S:Consulted to monitor and dose vancomycin started 11/15/19. O:HERRERA BERKOWITZ is a 64 year old F with Poss dialysis cath infection . Height: 5 feet, 0 inches Weight: 91.7 kg [place] Body Weight: 57.00 Adjusted Body Weight: 70.88 Dosing Weight: Actual Other Antibiotics: Cefepime 1g q24h LABS: Last BUN: 24 Last Creatinine: 4.7 Creatinine Clearance: TThSa HD mL/min Last WBC: 6.1 Last Procalcitonin: Tmax (past 24 hours): 100.0 Microbiology: I/O: 560/150 Drug Levels: Last Random level: 21.0 on 11/17/19 at 0300 Last dose given 11/15/19 at 1802 Vancomycin Dosing: Loading Dose: 2000 mg x1 Dosing Weight: Actual Target Trough: 10-20 A: Based on: PRE-HD LEVEL, P: 1. INITIATE Vancomycin 500 mg IV 500 MG TTS POST HD 2. Follow up Random level on 11/17/19 at 0500 3. Pharmacy will continue to monitor, follow and adjust therapy as needed. ROSA MARIA DICKSON [facility], 11/17/19 [id number]
[2019-11-17] MEDS: CEFEPIME HCL IV Push 1 GM VIAL. IVP SCH (17:05)
--- NOTE | 2019-11-17 17:26 | NUR ---
SW following. Spoke with RN and reviewed chart. Coordinated care with Dr. Winkler. Pt not ready for discharge today.
[2019-11-17 19:45] VITALS: BP 130/60
[2019-11-17] MEDS: POLYETHYLENE GLYCOL 3350 17 GM PACKET. PO SCH (20:52)
[2019-11-17 22:45] VITALS: BP 99/55
[2019-11-18 02:36] VITALS: BP 135/76
[2019-11-18 07:00] VITALS: BP 132/63
[2019-11-18] MEDS: INSULIN LISPRO 300 UNITS/3 ML VIAL. SQ SCH ×3 (08:00→17:00)
[2019-11-18] MEDS: MULTIVITAMIN I-VITE TABLET. PO SCH (08:11)
[2019-11-18] MEDS: PANTOPRAZOLE 40 MG TABLET.DR. PO SCH (08:11)
[2019-11-18] MEDS: ASPIRIN ENTERIC COATED 81 MG TABLET.DR. PO SCH (08:11)
[2019-11-18] MEDS: LACTOBACILLUS RHAMNOSUS GG 1 CAPSULE. PO SCH ×2 (08:12→22:19)
[2019-11-18] MEDS: SPIRONOLACTONE 25 MG TABLET PO SCH ×2 (08:12→22:20)
[2019-11-18] MEDS: FLUTICASONE 50MCG/NASAL SPRAY 16GM BOTTLE. NS SCH (08:13)
[2019-11-18] MEDS: ISOSORBIDE MONONITRATE ER 30 MG TAB.ER.24H PO SCH ×2 (08:14→22:19)
[2019-11-18] MEDS: HEPARIN for SUB-Q USE 5,000 UNIT/ML VIAL. SQ SCH ×2 (08:15→22:22)
[2019-11-18] MEDS: LABETALOL HCL 100 MG TABLET. PO SCH ×2 (08:15→22:20)
[2019-11-18] MEDS ORDERED: traMADol 50 MG TABLET PO PRN (08:45)
[2019-11-18] MEDS: ACETAMINOPHEN 325 MG TABLET. PO PRN ×2 (08:50→22:19)
--- NOTE | 2019-11-18 09:58 | PDOC ---
Infectious Disease Note Vital Sign Vital Signs Vital Signs Date Time Temp Pulse Resp B/P (MAP) Pulse Ox O2 Delivery O2 Flow Rate FiO2 11/18/19 08:15 73 132/63 11/18/19 02:36 100.1 20 100 Nasal Cannula 2.0 100.1 Labs Lab Laboratory Tests Test 11/17/19 12:36 11/17/19 17:08 11/17/19 20:59 11/18/19 07:52 Glucose (Fingerstick) 87 mg/dL (70-99) 128 mg/dL (70-99) 114 mg/dL (70-99) 96 mg/dL (70-99) Micro IMPRESSION: Interval exchange of the right jugular approach dialysis catheter with findings of cardiomegaly and bilateral lower lobe interstitial opacities that could reflect pulmonary fluid overload Microbiology 11/15/19 Urine Culture - Final, Complete 11/15/19 Blood Culture - Preliminary, Resulted NO GROWTH AFTER 2 DAYS Objective Assessment COVID + 11/10 - sating 93% on rm air currently Fever - ? COVID - cults neg. Curve is improving CKD on HD - HD cath changed 11/15 Morbid Obesity Plan Plan of Care D/c Vanc (dosed 11/14 and 11/16) and Cefepime CBC with diff Consider 6 min walk Thank you # [id number] RONNA CUMMINS MD Nov 18, 2019 09:58
[2019-11-18 11:00] VITALS: BP 91/49
--- NOTE | 2019-11-18 11:11 | PDOC ---
Renal-Progress Notes Subjective Notes Notes NO NEW COMPLAINTS History of Present Illness Hx of present illness STABLE Vitals Vitals Vital Signs Date Time Temp Pulse Resp B/P (MAP) Pulse Ox O2 Delivery O2 Flow Rate FiO2 11/18/19 08:15 73 132/63 11/18/19 07:00 101.4 20 94 Room Air 101.4 11/18/19 02:36 2.0 Weight Weight [ ] I.O. Intake and Output Intake and Output 11/18/19 07:00 Intake Total 600 ml Output Total 650 ml Balance -50 ml Intake Oral 600 ml Output Urine Total 650 ml Labs Labs Laboratory Tests Test 11/17/19 12:36 11/17/19 17:08 11/17/19 20:59 11/18/19 07:52 Glucose (Fingerstick) 87 mg/dL (70-99) 128 mg/dL (70-99) 114 mg/dL (70-99) 96 mg/dL (70-99) Micro Micro Microbiology 11/15/19 Urine Culture - Final, Complete 11/15/19 Blood Culture - Preliminary, Resulted NO GROWTH AFTER 2 DAYS Review of Systems Constitutional: yes: chills, fever Ears/Nose/Throat: Yes: no symptom reported Eyes: Yes: no symptom reported Pulmonary: Yes no symptom reported Gastrointestional: Yes: no symptom reported Genitourinary: Yes: no symptom reported Musculoskeletal: Yes: no symptom reported Skin: Yes no symptom reported Psychiatric/Neurological: Yes: no symptom reported Physical Exam General Appearance: no apparent distress Skin: warm Respiratory: bilateral CTA Heart: S1S2 Abdomen: soft, bowel sounds present Genitourinary: bladder flat Extremities: pulses present Neurology: alert Assessment Assessment IMP COVID 19 POS DYSPNEA FEVERS-PERSIST PROB CLABSI DM II HTN ANEMIA ESRD MALFUNCTIONING HD CATHETER PLAN ANTIBIOTICS S/P REMOVAL OF TUNNELED HD CATHETER S/P TEMP HD CATHETER HD TOMORROW LAURA NEEDED ID EVAL AND TX TYRONE DONNELLY MD Nov 18, 2019 11:11
--- NOTE | 2019-11-18 11:51 | PDOC ---
[facility] PROGRESS NOTE Chief Complaint Chief Complaint Hemodialysis Catheter dysfunction History of Present Illness History of Present Illness 11/18/2019 Patient is seen and examined Charts reviewed Discussed with RN Previous catheter is out - new temporary R.chest tube placed 11/17/2019 Patient seen and examined Patient undergoing hemodialysis Charts reviewed Discussed with RN 11/16/2019 Patient seen and examined Charts reviewed Discussed with RN Sepsis, rule out CLABSI ESRD TTS Diabetes type 2 Dyslipidemia Hypertension VENUS Vascular congestion with patchy bibasilar opacities, may represent early pulmonary edema. Vitals/I&O Vitals/I&O: Vital Signs Date Time Temp Pulse Resp B/P (MAP) Pulse Ox O2 Delivery O2 Flow Rate FiO2 11/18/19 08:15 73 132/63 11/18/19 08:00 Room Air 11/18/19 07:00 101.4 20 94 101.4 11/18/19 02:36 2.0 I & O 11/17/19 11/17/19 11/18/19 15:00 23:00 07:00 Intake Total 180 ml 420 ml 0 ml Output Total 450 ml 200 ml 0 ml Balance -270 ml 220 ml 0 ml Physical Exam General: Alert, Oriented X3, Cooperative, moderate distress Heart: Regular rate Lungs: Clear Abdomen: Normal bowel sounds, Soft, No tenderness Extremities: No clubbing, No cyanosis, Normal pulses Skin: No rashes Labs Labs: Laboratory Tests Test 11/17/19 12:36 11/17/19 17:08 11/17/19 20:59 11/18/19 07:52 Glucose (Fingerstick) 87 mg/dL (70-99) 128 mg/dL (70-99) 114 mg/dL (70-99) 96 mg/dL (70-99) Assessment and Plan Assessmemt and Plan Problems Medical Problems: (1) COVID-19 virus detected Status: Acute (2) Dialysis catheter clot or failure Status: Acute (3) Fever Status: Acute Assessment Sepsis, rule out CLABSI ESRD TTS Diabetes type 2 Dyslipidemia Hypertension VENUS Vascular congestion with patchy bibasilar opacities, may represent early pulmonary edema. Plan Hemodialysis M/W/F Awaiting fistula placement Implement fall precautions Trend Labs Full code Home Meds ADA/Renal Diet IV antibiotics Appreciate subspeciality input Comment Review of Relevant I have reviewed the following items munir (where applicable) has been applied. Justicifation of Admission Dx: Justifications for Admission: Justification of Admission Dx: Yes Acute Renal Failure: Serum Cr > 4mg/dL RAH MOFFETT III DO Nov 18, 2019 11:51
--- NOTE | 2019-11-18 12:14 | CONS ---
DATE OF CONSULTATION: 11/18/2019 LOCATION: The patient's room is 671. REQUESTING PHYSICIAN: Dr. Stern. REASON FOR CONSULTATION: Fever and COVID positive, rule out sepsis. HISTORY OF PRESENT ILLNESS: The patient is a pleasant 64-year-old female with history of chronic kidney disease, sleep apnea, and morbid obesity, who presented to [facility] on the 14 of November secondary to malfunctioning dialysis catheter and she needed it to be replaced. She did have a temperature at presentation of 101.5. Cultures were obtained. Additionally, she had a blood pressure of 206/86. She was given a dose of vancomycin and started on cefepime. She had tested positive for COVID-19 on the 10 of November. She did undergo a catheter exchange on the . She has had a normal white blood cell count at the time of presentation. Currently, the patient is lying in bed. She states she was feeling much better about an hour ago, but now she has got some dizzy since she is taking her medicines. She is not having any gross fevers, chills or sweats, but she does feel hot and cold at time and does adjust the fan. She has no sinus issues. She has minimal cough with no production. No cramps or diarrhea and ate a little bit this morning. PAST MEDICAL HISTORY: Positive for asthma, diabetes, hypercholesterolemia, hypertension, chronic kidney disease on hemodialysis, obstructive sleep apnea, morbid obesity, hepatitis, and depression. PAST SURGICAL HISTORY: Positive for , hernia repair, colon resection and dialysis catheter placements. REVIEW OF SYSTEMS: Otherwise negative except for what is mentioned above. ALLERGIES: LISTED IODINATED CONTRAST MATERIAL. SOCIAL HISTORY: No alcohol or tobacco. FAMILY HISTORY: Noncontributory. CURRENT MEDICATIONS: Include vancomycin was redosed yesterday, cefepime, Cardizem, fluconazole, heparin, hydralazine, insulin, isosorbide mononitrate, labetalol, lactobacillus, multivitamin, Protonix, MiraLax, and Aldactone. PHYSICAL EXAMINATION: VITAL SIGNS: Temperature is 100.1 oral this morning, pulse 73, blood pressure 132/63, and currently satting 93% on room air, I checked it when I was in the room. CONSTITUTIONAL: She is cooperative. She is in no acute distress, but she is a little uncomfortable. HEENT: Normal conjunctivae. Oral cavity, pharynx was clear. NECK: Supple. Good range of motion. LUNGS: Clear to auscultation. HEART: S1, S2. ABDOMEN: Morbidly obese, soft, no guarding, no rebound. EXTREMITIES: Without clubbing or cyanosis. No gross edema. SKIN: Warm to touch without signs of rash. Right-sided neck hemodialysis catheter without signs of complications. NEUROLOGIC: She answers questions and moves all extremities. LABORATORY DATA: White count was 6.1 on arrival, hemoglobin 10.2, platelets 185, neutrophils 66%, and lymphs were 20. Glucose was 188 and creatinine of 4.7. She had normal liver function study tests on arrival. Most recent glucose was 96 this morning. Urinalysis from the , not consistent with urinary tract infection. Cultures are all negative. Chest x-ray on arrival, vascular congestion with patchy bibasilar opacities. Repeat chest x-ray post-procedure on the , right jugular dialysis in place, cardiomegaly, bilateral interstitial infiltrates. IMPRESSION: 1. COVID positive on 11/11/2019, currently satting 93% on room air. 2. Fever, questionable secondary to COVID. Cultures are negative. Curve is improving. 3. Chronic kidney disease, on hemodialysis. Hemodialysis catheter changed on the . 4. Morbid obesity. RECOMMENDATIONS: We will discontinue the vancomycin as well as the cefepime. We will obtain a CBC with a diff and would consider a 6-minute walk. Thank you for this patient's care. Should you have any further questions, please do not hesitate to contact me. RONNA CUMMINS MD DR: BEKAH/kat JOB#: [id number] / [id number] ERIC
[2019-11-18 12:36] LABS: BASO % 1 % (0-3); EOS % 0 % (0-3); HEMATOCRIT 26.9 % (36.0-47.0); HEMOGLOBIN 8.7 g/dL (12.0-15.5); LYMPH # 1.1 x10^3/uL (1.0-4.8); LYMPH % 17 % (24-48); MEAN CORPUSCULAR HEMOGLOBIN 25 pg (25-35); MEAN CORPUSCULAR HGB CONC 32 g/dL (31-37); MEAN CORPUSCULAR VOLUME 79 fL (79-100); MONO # 0.7 x10^3/uL (0.0-1.1); MONO % 12 % (0-9); NEUT # 4.5 x10^3/uL (1.8-7.7); NEUT % 70 % (31-73); PLATELET COUNT 169 x10^3/uL (140-400); RED BLOOD COUNT 3.42 x10^6/uL (3.50-5.40); WHITE BLOOD COUNT 6.5 x10^3/uL (4.0-11.0)
[2019-11-18 15:00] VITALS: BP 127/62
--- NOTE | 2019-11-18 16:50 | NUR ---
SW following. Reviewed chart and spoke with RN. Pt not ready for discharge. Pt is now on room air. SW called [facility] and pt does not dialyze there. SW called [facility], , (fax) to inform them that they need to setup dialysis at [facility] per pt being COVID positive. SW to continue following.
[2019-11-18 19:45] VITALS: BP 167/67
[2019-11-18] MEDS: POLYETHYLENE GLYCOL 3350 17 GM PACKET. PO SCH (21:00)
[2019-11-18 23:55] VITALS: BP 91/51
[2019-11-19 03:14] VITALS: BP 116/58
[2019-11-19 04:09] LABS: HEMATOCRIT 27.3 % (36.0-47.0); HEMOGLOBIN 8.8 g/dL (12.0-15.5); RED BLOOD COUNT 3.48 x10^6/uL (3.50-5.40); WHITE BLOOD COUNT 6.9 x10^3/uL (4.0-11.0)
[2019-11-19 04:24] LABS: CALCIUM 8.2 mg/dL (8.5-10.1); GFR 8.6; POTASSIUM 4.7 mmol/L (3.5-5.1)
--- NOTE | 2019-11-19 07:28 | PDOC ---
Infectious Disease Note Subjective Subjective Feeling better and wanting to go home Hungry No F/c/S/nv/SOA ROS ROS o/w neg Vital Sign Vital Signs Vital Signs Date Time Temp Pulse Resp B/P (MAP) Pulse Ox O2 Delivery O2 Flow Rate FiO2 11/19/19 03:14 100.1 83 16 116/58 (77) 95 Room Air 100.1 11/18/19 20:00 2.0 Physical Exam PHYSICAL EXAM CONSTITUTIONAL: She is cooperative. She is in no acute distress, In chair and looks well HEENT: Normal conjunctivae. Oral cavity, pharynx was clear. NECK: Supple. Good range of motion. LUNGS: Clear to auscultation. HEART: S1, S2. ABDOMEN: Morbidly obese, soft, no guarding, no rebound. EXTREMITIES: Without clubbing or cyanosis. No gross edema. SKIN: Warm to touch without signs of rash. Right-sided neck hemodialysis catheter without signs of complications. NEUROLOGIC: She answers questions and moves all extremities. Labs Lab Laboratory Tests Test 11/18/19 07:52 11/18/19 12:10 11/18/19 12:11 11/18/19 17:18 Glucose (Fingerstick) 96 mg/dL (70-99) 98 mg/dL (70-99) 140 mg/dL (70-99) White Blood Count 6.5 x10^3/uL (4.0-11.0) Red Blood Count 3.42 x10^6/uL (3.50-5.40) Hemoglobin 8.7 g/dL (12.0-15.5) Hematocrit 26.9 % (36.0-47.0) Mean Corpuscular Volume 79 fL (79-100) Mean Corpuscular Hemoglobin 25 pg (25-35) Mean Corpuscular Hemoglobin Concent 32 g/dL (31-37) Red Cell Distribution Width 15.0 % (11.5-14.5) Platelet Count 169 x10^3/uL (140-400) Neutrophils (%) (Auto) 70 % (31-73) Lymphocytes (%) (Auto) 17 % (24-48) Monocytes (%) (Auto) 12 % (0-9) Eosinophils (%) (Auto) 0 % (0-3) Basophils (%) (Auto) 1 % (0-3) Neutrophils # (Auto) 4.5 x10^3/uL (1.8-7.7) Lymphocytes # (Auto) 1.1 x10^3/uL (1.0-4.8) Monocytes # (Auto) 0.7 x10^3/uL (0.0-1.1) Eosinophils # (Auto) 0.0 x10^3/uL (0.0-0.7) Basophils # (Auto) 0.0 x10^3/uL (0.0-0.2) Test 11/18/19 20:41 11/19/19 03:30 Glucose (Fingerstick) 125 mg/dL (70-99) White Blood Count 6.9 x10^3/uL (4.0-11.0) Red Blood Count 3.48 x10^6/uL (3.50-5.40) Hemoglobin 8.8 g/dL (12.0-15.5) Hematocrit 27.3 % (36.0-47.0) Mean Corpuscular Volume 78 fL (79-100) Mean Corpuscular Hemoglobin 25 pg (25-35) Mean Corpuscular Hemoglobin Concent 32 g/dL (31-37) Red Cell Distribution Width 15.0 % (11.5-14.5) Platelet Count 195 x10^3/uL (140-400) Sodium Level 136 mmol/L (136-145) Potassium Level 4.7 mmol/L (3.5-5.1) Chloride Level 100 mmol/L (98-107) Carbon Dioxide Level 25 mmol/L (21-32) Anion Gap 11 (6-14) Blood Urea Nitrogen 27 mg/dL (7-20) Creatinine 6.0 mg/dL (0.6-1.0) Estimated GFR (Cockcroft-Gault) 8.6 Glucose Level 115 mg/dL (70-99) Calcium Level 8.2 mg/dL (8.5-10.1) Micro IMPRESSION: Interval exchange of the right jugular approach dialysis catheter with findings of cardiomegaly and bilateral lower lobe interstitial opacities that could reflect pulmonary fluid overload Microbiology 11/15/19 Urine Culture - Final, Complete 11/15/19 Blood Culture - Preliminary, Resulted NO GROWTH AFTER 2 DAYS Objective Assessment COVID + 11/10 - sating 93% on rm air currently Fever - ? COVID - cults neg. Curve is improving - cults neg and WBC nml CKD on HD - HD cath changed 11/15 Morbid Obesity Plan Plan of Care D/c Vanc (dosed 11/14 and 11/16) and Cefepime Doing well off abx ID to sign off RONNA CUMMINS MD Nov 19, 2019 07:28
[2019-11-19] MEDS: PANTOPRAZOLE 40 MG TABLET.DR. PO SCH (07:30)
[2019-11-19 08:00] VITALS: BP 143/64
[2019-11-19] MEDS: ASPIRIN ENTERIC COATED 81 MG TABLET.DR. PO SCH (08:00)
[2019-11-19] MEDS: INSULIN LISPRO 300 UNITS/3 ML VIAL. SQ SCH (08:00)
[2019-11-19] MEDS: MULTIVITAMIN I-VITE TABLET. PO SCH (09:00)
[2019-11-19] MEDS: SPIRONOLACTONE 25 MG TABLET PO SCH (09:00)
[2019-11-19] MEDS: LABETALOL HCL 100 MG TABLET. PO SCH (09:00)
[2019-11-19] MEDS: FLUTICASONE 50MCG/NASAL SPRAY 16GM BOTTLE. NS SCH (09:00)
[2019-11-19] MEDS: ISOSORBIDE MONONITRATE ER 30 MG TAB.ER.24H PO SCH (09:00)
[2019-11-19] MEDS: HEPARIN for SUB-Q USE 5,000 UNIT/ML VIAL. SQ SCH (09:00)
[2019-11-19] MEDS: LACTOBACILLUS RHAMNOSUS GG 1 CAPSULE. PO SCH (09:00)
--- NOTE | 2019-11-19 09:02 | NUR ---
Pt requesting to go home since the beginning of the shift and has dressed herself and does not want dialysis or any medicatiions this morning. Message left for return call from Dr. Winkler. Called service [phone].
--- NOTE | 2019-11-19 11:21 | SNU/HH DC ---
DISCHARGE WITH HOME HEALTH DISCHARGE INFORMATION: Final Diagnosis: Problems Medical Problems: (1) COVID-19 virus detected Status: Acute (2) Dialysis catheter clot or failure Status: Acute (3) Fever Status: Acute Condition on Discharge: Stable CODE STATUS: Code Status: Full HOME HEALTH: Face to Face: I certify this patient is under my care and that I, or a nurse practitioner or physician's virtual assistant working with me, had a face to face encounter that meets the physician face to face encounter requirements with this patient on []. Medical Complications: Other (ESRD and recent COVID-19) RN For Eval/Treatment: Yes Physical Therapy For: Evalulation/Treatment Occupational Therapy For: Evaluation/Treatment Home Health Aide For: Self-care [employer]ICAL OFFICER For: Community Resources Pt Meets Homebound Status: Poor coordination w/ amb. POST DISCHARGE ORDERS: Activity Instructions for Disc: Activity as tolerated Weight Bearing Status after Di: As tolerated DIET AFTER DISCHARGE: Renal Wound/Incision Care: No wound care needed CHECKS AFTER DISCHARGE: Checks after discharge: Check blood press - daily, Check blood sugar, ac/hs TREATMENT/EQUIPMENT ORDERS: Adaptive Equipment Issued: None CERTIFICATION STATEMENT: Certification Statement: Certification Statement: Based on the above finding, I certify that this patient is confined to the home and needs intermittent fdc care, physical t herapy and/or speech therapy, or continues to need occupational therapy.~ This patient is under my care, and I have initiated the establishment of the plan of care.~ This patient will be followed by myself or a community physician who will periodically review the plan of care. Home Meds Active Scripts Polyethylene Glycol 3350 (POLYETHYLENE GLYCOL 3350) 17 Gm Powd.pack, 17 GM PO QHS for STOOLS for 30 Days, #30 PKT Prov:KAROLINE BUSTOS MD 11/03/19 Aspirin (ASPIRIN EC) 81 Mg Tablet.dr, 81 MG PO DAILYWBKFT for HEART HEALTH for 30 Days, #30 TAB.SR Prov:KAROLINE BUSTOS MD 11/03/19 Spironolactone (ALDACTONE) 25 Mg Tablet, 25 MG PO BID for BLOOD PRESSURE for 30 Days, #60 TAB Prov:KAROLINE BUSTOS MD 11/03/19 Diltiazem HCl (Diltiazem 24Hr Cd) 240 Mg Cap.er.24h, 240 MG PO DAILY for HEART for 30 Days, #30 CAP.SR Prov:KAROLINE BUSTOS MD 11/03/19 Labetalol Hcl (LABETALOL HCL) 100 Mg Tablet, 300 MG PO BID for BLOOD PRESSURE for 30 Days, #180 TAB Prov:KAROLINE BUSTOS MD 11/03/19 Hydralazine Hcl (HYDRALAZINE HCL) 50 Mg Tablet, 100 MG PO TID for BLOOD PRESSURE for 30 Days, #180 TAB Prov:KAROLINE BUSTOS MD 11/03/19 Insulin Lispro (HUMALOG) 100 Unit/1 Ml Insuln.pen, 0 UNITS SQ TIDWMEALS for DIABETES for 30 Days, #2 EACH Prov:KAROLINE BUSTOS MD 10/04/19 Fluticasone Propionate (FLUTICASONE PROPIONATE NASAL SPRAY) 16 Gm [place].susp, 2 SPRAY NS DAILY for CONGESTION for 30 Days, #1 SPRAY Prov:KAROLINE BUSTOS MD 10/04/19 Reported Medications Isosorbide Mononitrate (ISOSORBIDE MONONITRATE ER) 60 Mg Tab.er.24h, 60 MG PO BID for LOWER BP, TAB.SR 10/29/19 Pantoprazole Sodium (PROTONIX ) 40 Mg Tablet.dr, 40 MG PO DAILYAC for GERD, TAB 09/29/19 Fluticasone/Umeclidin/Vilanter (Trelegy Ellipta 100-62.5-25) 1 Each Blst.w.dev, 1 EACH IH BID for copd 07/27/18 Albuterol Sulfate (ALBUTEROL SULFATE HFA INHALER) 8.5 Gm Hfa.aer.ad, 8.5 GM IH 07/06/13 RAH MOFFETT III DO Nov 19, 2019 11:21
--- NOTE | 2019-11-19 11:43 | PDOC ---
[facility] [facility] PROGRESS NOTE Chief Complaint Chief Complaint Hemodialysis Catheter dysfunction Sepsis, rule out CLABSI ESRD TTS Diabetes type 2 Dyslipidemia Hypertension VENUS Vascular congestion with patchy bibasilar opacities, may represent early pulmonary edema. History of Present Illness History of Present Illness 11/19/2019 Patient is seen and examined Patient is dressed and wants to go home, is refusing meds and hemodialysis Charts reviewed Discussed with RN 11/18/2019 Patient is seen and examined Charts reviewed Discussed with RN Previous catheter is out - new temporary R.chest tube placed 11/17/2019 Patient seen and examined Patient undergoing hemodialysis Charts reviewed Discussed with RN 11/16/2019 Patient seen and examined Charts reviewed Discussed with RN Sepsis, rule out CLABSI ESRD TTS Diabetes type 2 Dyslipidemia Hypertension VENUS Vascular congestion with patchy bibasilar opacities, may represent early pulmonary edema. Vitals/I&O Vitals/I&O: Vital Signs Date Time Temp Pulse Resp B/P (MAP) Pulse Ox O2 Delivery O2 Flow Rate FiO2 11/19/19 09:30 Room Air 11/19/19 08:00 98.9 92 20 143/64 (90) 91 98.9 11/18/19 20:00 2.0 I & O 11/18/19 11/18/19 11/19/19 15:00 23:00 07:00 Intake Total 340 ml 50 ml 0 ml Output Total 400 ml 200 ml 250 ml Balance -60 ml -150 ml -250 ml Physical Exam Physical Exam: CONSTITUTIONAL: She is cooperative. She is in no acute distress, In chair and looks well HEENT: Normal conjunctivae. Oral cavity, pharynx was clear. NECK: Supple. Good range of motion. LUNGS: Clear to auscultation. HEART: S1, S2. ABDOMEN: Morbidly obese, soft, no guarding, no rebound. EXTREMITIES: Without clubbing or cyanosis. No gross edema. SKIN: Warm to touch without signs of rash. Right-sided neck hemodialysis catheter without signs of complications. NEUROLOGIC: She answers questions and moves all extremities. General: Alert, Oriented X3, Cooperative, moderate distress Heart: Regular rate Lungs: Clear Abdomen: Normal bowel sounds, Soft, No tenderness Extremities: No clubbing, No cyanosis, Normal pulses Skin: No rashes Labs Labs: Laboratory Tests Test 11/18/19 12:10 11/18/19 12:11 11/18/19 17:18 11/18/19 20:41 White Blood Count 6.5 x10^3/uL (4.0-11.0) Red Blood Count 3.42 x10^6/uL (3.50-5.40) Hemoglobin 8.7 g/dL (12.0-15.5) Hematocrit 26.9 % (36.0-47.0) Mean Corpuscular Volume 79 fL (79-100) Mean Corpuscular Hemoglobin 25 pg (25-35) Mean Corpuscular Hemoglobin Concent 32 g/dL (31-37) Red Cell Distribution Width 15.0 % (11.5-14.5) Platelet Count 169 x10^3/uL (140-400) Neutrophils (%) (Auto) 70 % (31-73) Lymphocytes (%) (Auto) 17 % (24-48) Monocytes (%) (Auto) 12 % (0-9) Eosinophils (%) (Auto) 0 % (0-3) Basophils (%) (Auto) 1 % (0-3) Neutrophils # (Auto) 4.5 x10^3/uL (1.8-7.7) Lymphocytes # (Auto) 1.1 x10^3/uL (1.0-4.8) Monocytes # (Auto) 0.7 x10^3/uL (0.0-1.1) Eosinophils # (Auto) 0.0 x10^3/uL (0.0-0.7) Basophils # (Auto) 0.0 x10^3/uL (0.0-0.2) Glucose (Fingerstick) 98 mg/dL (70-99) 140 mg/dL (70-99) 125 mg/dL (70-99) Test 11/19/19 03:30 11/19/19 08:21 White Blood Count 6.9 x10^3/uL (4.0-11.0) Red Blood Count 3.48 x10^6/uL (3.50-5.40) Hemoglobin 8.8 g/dL (12.0-15.5) Hematocrit 27.3 % (36.0-47.0) Mean Corpuscular Volume 78 fL (79-100) Mean Corpuscular Hemoglobin 25 pg (25-35) Mean Corpuscular Hemoglobin Concent 32 g/dL (31-37) Red Cell Distribution Width 15.0 % (11.5-14.5) Platelet Count 195 x10^3/uL (140-400) Sodium Level 136 mmol/L (136-145) Potassium Level 4.7 mmol/L (3.5-5.1) Chloride Level 100 mmol/L (98-107) Carbon Dioxide Level 25 mmol/L (21-32) Anion Gap 11 (6-14) Blood Urea Nitrogen 27 mg/dL (7-20) Creatinine 6.0 mg/dL (0.6-1.0) Estimated GFR (Cockcroft-Gault) 8.6 Glucose Level 115 mg/dL (70-99) Calcium Level 8.2 mg/dL (8.5-10.1) Glucose (Fingerstick) 152 mg/dL (70-99) Assessment and Plan Assessmemt and Plan Problems Medical Problems: (1) COVID-19 virus detected Status: Acute (2) Dialysis catheter clot or failure Status: Acute (3) Fever Status: Acute Assessment Sepsis, rule out CLABSI ESRD TTS Diabetes type 2 Dyslipidemia Hypertension VENUS Vascular congestion with patchy bibasilar opacities, may represent early pulmonary edema. Plan Hemodialysis M/W/F Trend Labs Full code Home Meds ADA/Renal Diet Probable discharge home Comment Review of Relevant I have reviewed the following items munir (where applicable) has been applied. Justicifation of Admission Dx: Justifications for Admission: Justification of Admission Dx: Yes Acute Renal Failure: Serum Cr > 4mg/dL RAH MOFFETT III DO Nov 19, 2019 11:43
--- NOTE | 2019-11-19 11:52 | DS ---
DATE OF DISCHARGE: 11/19/2019 DATE OF DISCHARGE: 11/19/2019. ADMISSION DIAGNOSES: 1. Hemodialysis catheter dysfunction. 2. Recent COVID positive on 11/11/2019. 3. Fever. DISCHARGE DIAGNOSES: 1. Resolving hemodialysis catheter dysfunction. 2. End-stage renal disease, on dialysis for the past 4 weeks./ 3. Hypertension. 4. Hyperlipidemia. 5. Diabetes. 6. Obstructive sleep apnea. 7. Asthma. 8. . 9. Right chest dialysis catheter placement. 10. Resolving fevers. 11. Resolving recent COVID positive testing. CONSULTS: Nephrology and Dr. Rodriguez of Infectious Disease. PROCEDURES: Dialysis. HOSPITAL COURSE: The patient is a pleasant elderly female who basically started dialysis 4 weeks ago. She has been recently tested positive for COVID. Her dialysis catheter was malfunctioning. Basically, she was sent in for evaluation of her fevers and to be dialyzed and to get a second opinion from Infectious Disease. We admitted the patient, we gave her broad-spectrum antibiotics, breathing treatments and oxygen. We dialyzed her and over the past couple of days, she has returned to her baseline. This morning, I saw her and examined her. She really wants to go home. Heart tones are normal. Lungs are clear. We have her on all p.o. medications, so if okay with consultants, we are going to go ahead and let her go home and follow up closely with her primary care doctor. DISPOSITION: Home. ACTIVITY: As tolerated. DIET: Renal. MEDICATIONS: Please see the MRAD. TOTAL TIME: 32 minutes. RAH MOFFETT DO DR: NENA/kat JOB#: [id number] / [id number]
--- NOTE | 2019-11-19 12:04 | NUR ---
PT LEFT AMA THIS SHIFT. PT WAS UP IN CHAIR AND DRESSED SAYING SHE WAS LEAVING TODAY. PT ADVISED BY THIS NURSE, CHARGE NURSE, MERISSA, DR MOFFETT AND DR DONNELLY THAT SHE NEEDED TO STAY FOR MULTIPLE REASONS. PT REFUSED AFTER MULTIPLE ATTEMPTS AT TRYING TO GET HER TO STAY. PT SIGNED AMA PAPERWORK, SECURITY AND STAFF ESCORTED PT TO FAMILYS CARE. PT GIVEN INSTRUCTIONS ON COVID ISOLATION AND TO SELF ISOLATE. SPOKE TO PTS DAUGHTER YULI AT [phone] REGARDING PTS DECISION TO LEAVE AMA AND PRECAUTIONS WITH COVID STATUS AND REASONS WHY THE PT SHOULD NOT HAVE LEFT THE HOSPITAL AT THIS TIME, TO FOLLOW UP WITH DIALYSIS, AND WHEN TO COME BACK TO ER IF PTS SYMPTOMS WORSEN ETC.
--- NOTE | 2019-11-19 12:26 | PDOC ---
Renal-Progress Notes Subjective Notes Notes SHE WANTS TO LEAVE History of Present Illness Hx of present illness IMPROVING Vitals Vitals Vital Signs Date Time Temp Pulse Resp B/P (MAP) Pulse Ox O2 Delivery O2 Flow Rate FiO2 11/19/19 11:00 99.6 99.6 11/19/19 09:30 Room Air 11/19/19 08:00 92 20 143/64 (90) 91 11/18/19 20:00 2.0 Weight Weight [ ] I.O. Intake and Output Intake and Output 11/19/19 07:00 Intake Total 390 ml Output Total 850 ml Balance -460 ml Intake Oral 390 ml Output Urine Total 850 ml # Voids 1 Labs Labs Laboratory Tests Test 11/18/19 17:18 11/18/19 20:41 11/19/19 03:30 11/19/19 08:21 Glucose (Fingerstick) 140 mg/dL (70-99) 125 mg/dL (70-99) 152 mg/dL (70-99) White Blood Count 6.9 x10^3/uL (4.0-11.0) Red Blood Count 3.48 x10^6/uL (3.50-5.40) Hemoglobin 8.8 g/dL (12.0-15.5) Hematocrit 27.3 % (36.0-47.0) Mean Corpuscular Volume 78 fL (79-100) Mean Corpuscular Hemoglobin 25 pg (25-35) Mean Corpuscular Hemoglobin Concent 32 g/dL (31-37) Red Cell Distribution Width 15.0 % (11.5-14.5) Platelet Count 195 x10^3/uL (140-400) Sodium Level 136 mmol/L (136-145) Potassium Level 4.7 mmol/L (3.5-5.1) Chloride Level 100 mmol/L (98-107) Carbon Dioxide Level 25 mmol/L (21-32) Anion Gap 11 (6-14) Blood Urea Nitrogen 27 mg/dL (7-20) Creatinine 6.0 mg/dL (0.6-1.0) Estimated GFR (Cockcroft-Gault) 8.6 Glucose Level 115 mg/dL (70-99) Calcium Level 8.2 mg/dL (8.5-10.1) Micro Micro Microbiology 11/16/19 Gram Stain - Final, Resulted 11/16/19 Aerobic Culture - Preliminary, Resulted 11/15/19 Urine Culture - Final, Complete 11/15/19 Blood Culture - Preliminary, Resulted NO GROWTH AFTER 3 DAYS Review of Systems Constitutional: yes: chills, fever Ears/Nose/Throat: Yes: no symptom reported Eyes: Yes: no symptom reported Pulmonary: Yes no symptom reported Gastrointestional: Yes: no symptom reported Genitourinary: Yes: no symptom reported Musculoskeletal: Yes: no symptom reported Skin: Yes no symptom reported Psychiatric/Neurological: Yes: no symptom reported Physical Exam General Appearance: no apparent distress Skin: warm Respiratory: bilateral CTA Heart: S1S2 Abdomen: soft, bowel sounds present Genitourinary: bladder flat Extremities: pulses present Neurology: alert Assessment Assessment IMP COVID 19 POS DYSPNEA FEVERS-RESOLVED DM II HTN ANEMIA ESRD MALFUNCTIONING HD CATHETER PLAN OFF ANTIBIOTICS S/P REMOVAL OF TUNNELED HD CATHETER AND TEMP HD CATHETER DUE TO CATHETER MALFUNCTION AND FEVERS ON ADMIT HD DUE TO FOR TODAY BUT PT INSISTING ON LEAVING AND REFUSING TX SHE STILL HAS A TEMP HD CATHETER WHICH NEEDS TO BE CONVERTED TO A TUNNELED LINE BEFORE LEAVING OP HD [facility] ALSO NEEDS TO BE SET UP SHE STILL INSISTS ON LEAVING SHE WILL BE LEAVING TYRONE CASTELAN MD Nov 19, 2019 12:25
[2019-11-19] MEDS ORDERED: VANCOMYCIN 500 MG in IV NORMAL SALINE 100ML 100 ML IV SCH (16:00)
== END 2019-11-19 12:00 | disposition left against medical advice (07) | DRG 314 ==
LOC: ER 12:19 → ED HOLD 16:15 → 6 SOUTH 17:49 → OBSVTOIN 11-16 13:47
PROVIDERS: ADMIT Internal Medicine; ATTEND Internal Medicine
PROC: 0JPT3XZ Removal of Tunneled Vascular Access Device from Trunk Subcutaneous Tissue and Fascia, Percutaneous Approach (ICD-10-PCS; principal; 2019-11-16)
PROC: 02PYX3Z Removal of Infusion Device from Great Vessel, External Approach (ICD-10-PCS; 2019-11-16)
PROC: 02H633Z Insertion of Infusion Device into Right Atrium, Percutaneous Approach (ICD-10-PCS; 2019-11-16)
PROC: B548ZZA Ultrasonography of Superior Vena Cava, Guidance (ICD-10-PCS; 2019-11-16)
PROC: 5A1D70Z Performance of Urinary Filtration, Intermittent, Less than 6 Hours Per Day (ICD-10-PCS; 2019-11-17)
DX: T82.41XA Breakdown (mechanical) of vascular dialysis catheter, initial encounter (principal); A41.9 Sepsis, unspecified organism; N18.6 End stage renal disease; U07.1 COVID-19; I12.0 Hypertensive chronic kidney disease with stage 5 chronic kidney disease or end stage renal disease; D64.9 Anemia, unspecified; E11.22 Type 2 diabetes mellitus with diabetic chronic kidney disease; E66.01 Morbid (severe) obesity due to excess calories; E78.00 Pure hypercholesterolemia, unspecified; E78.5 Hyperlipidemia, unspecified; F17.200 Nicotine dependence, unspecified, uncomplicated; G43.909 Migraine, unspecified, not intractable, without status migrainosus; G47.33 Obstructive sleep apnea (adult) (pediatric); J44.9 Chronic obstructive pulmonary disease, unspecified; Y71.2 Prosthetic and other implants, materials and accessory cardiovascular devices associated with adverse incidents; F32.9 Major depressive disorder, single episode, unspecified; F41.9 Anxiety disorder, unspecified; G47.30 Sleep apnea, unspecified; K21.9 Gastro-esophageal reflux disease without esophagitis; K57.90 Diverticulosis of intestine, part unspecified, without perforation or abscess without bleeding; Z53.29 Procedure and treatment not carried out because of patient's decision for other reasons; K59.00 Constipation, unspecified; Z99.2 Dependence on renal dialysis; Z68.39 Body mass index [BMI] 39.0-39.9, adult; Z91.15 Patient's noncompliance with renal dialysis; Z87.11 Personal history of peptic ulcer disease; Z86.19 Personal history of other infectious and parasitic diseases; Z98.891 History of uterine scar from previous surgery; Z91.041 Radiographic dye allergy status; Z90.49 Acquired absence of other specified parts of digestive tract
CPT/HCPCS: 36415; 36556; 36589; 71045; 76937; 80048; 80053; 80202; 81001; 82248; 82962; 83605; 83690; 85025; 85027; 85610; 85730; 87040; 87070; 87086; 93005; 96365; 96366; 96375; 99285; C1892; G0378; G0379; J0692; J1644; J3010; J3370; J3490; J7040; U0003-CS

== ENCOUNTER 2020-02-21 21:43 | Emergency (ER) | payer MEDICAID ==
[~2020-02-21] VITALS: Ht 152.4 cm; Wt 95.0 kg
[~2020-02-21 21:43] MED LIST changes: +AMLO-187 PO; -AMLO10TA8 PO
[2020-02-21 22:55] LABS: BASO # 0.1 x10^3/uL (0.0-0.2); BASO % 1 % (0-3); EOS # 0.7 x10^3/uL (0.0-0.7); EOS % 5 % (0-3); HEMATOCRIT 36.1 % (36.0-47.0); HEMOGLOBIN 11.7 g/dL (12.0-15.5); LYMPH # 2.7 x10^3/uL (1.0-4.8); LYMPH % 19 % (24-48); MEAN CORPUSCULAR HEMOGLOBIN 26 pg (25-35); MEAN CORPUSCULAR HGB CONC 32 g/dL (31-37); MEAN CORPUSCULAR VOLUME 81 fL (79-100); MONO % 8 % (0-9); NEUT # 9.2 x10^3/uL (1.8-7.7); NEUT % 67 % (31-73); PLATELET COUNT 222 x10^3/uL (140-400); RED BLOOD COUNT 4.47 x10^6/uL (3.50-5.40); RED CELL DISTRIBUTION WIDTH 18.7 % (11.5-14.5); WHITE BLOOD COUNT 13.8 x10^3/uL (4.0-11.0)
[2020-02-21] MEDS ORDERED: IPRATRPIUM/ALBUTEROL 0.5/2.5MG 3 ML NEBU. NEB ONE (23:00)
[2020-02-21 23:05] LABS: CALCIUM 8.7 mg/dL (8.5-10.1); CREATININE 3.9 mg/dL (0.6-1.0); GFR 14.1; POTASSIUM 4.9 mmol/L (3.5-5.1)
[2020-02-21 23:11] LABS: ALBUMIN 3.4 g/dL (3.4-5.0); TOTAL BILIRUBIN 0.1 mg/dL (0.2-1.0); TOTAL PROTEIN 6.9 g/dL (6.4-8.2)
--- NOTE | 2020-02-21 23:37 | PHYS DOC ---
Past Medical History Past Medical History: Asthma, Diabetes-Type II, High Cholesterol, Hypertension, Renal Failure Additional Past Medical Histor: sleep apnea; ulcers; GI bleed, Stage 5 CKD Past Surgical History: Additional Past Surgical Histo: hernia; right chest diaylsis catheter Smoking Status: Current Every Day Smoker Alcohol Use: None Drug Use: None General Adult EDM: Chief Complaint: HYPERTENSION HPI: HPI: Patient is a 64 year old female with history of end-stage renal failure on hemodialysis, hypertension, diabetic, asthma presented to ER today with complaint of trouble breathing, headache, abdominal pain. Patient described the pain in the epigastric area. Patient states this is her acid reflux. Patient also complained of headache, her blood pressure was low during dialysis today however when she got home her blood pressure was elevated. Patient had not taken her evening medication. Patient denies any chest pain. Patient denies any cough or fever. Patient had one episode of loose stool today. Patient denies being exposed to anybody who tested positive for COVID-19. Review of Systems: Review of Systems: Constitutional: Denies fever or chills. [] Eyes: Denies change in visual acuity. [] HENT: Denies nasal congestion or sore throat. [] Respiratory: Positive for cough and trouble breathing Cardiovascular: Denies chest pain or edema. [] GI: Positive for abdominal pain, no nausea vomiting, no diarrhea : Denies dysuria. [] Musculoskeletal: Denies back pain or joint pain. [] Integument: Denies rash. [] Neurologic: Positive for headache, Endocrine: Denies polyuria or polydipsia. [] Lymphatic: Denies swollen glands. [] Psychiatric: Denies depression or anxiety. [] Heart Score: Risk Factors: Risk Factors: DM, Current or recent (<one month) smoker, HTN, HLP, family history of CAD, obesity. Risk Scores: Score 0 - 3: 2.5% MACE over next 6 weeks - Discharge Home Score 4 - 6: 20.3% MACE over next 6 weeks - Admit for Clinical Observation Score 7 - 10: 72.7% MACE over next 6 weeks - Early Invasive Strategies Current Medications: Current Medications Medications (Trade) Dose Ordered Sig/Howard Start Time Stop Time Status Last Admin Dose Admin Albuterol/ Ipratropium (Duoneb) 3 ml 1X ONCE 02/21/20 23:00 02/21/20 23:01 DC 02/21/20 23:18 3 ML Allergies: Allergies: Allergies Coded Allergies Type Severity Reaction Last Updated Verified Iodinated Contrast Media Adverse Reaction Intermediate Nausea and Vomiting 11/11/19 Yes Physical Exam: PE: Constitutional: Well developed, well nourished, no acute distress, non-toxic appearance. [] HENT: Normocephalic, atraumatic, bilateral external ears normal, oropharynx moist, no oral exudates, nose normal. [] Eyes: PERRLA, EOMI, conjunctiva normal, no discharge. [] Neck: Normal range of motion, no tenderness, supple, no stridor. [] Cardiovascular:Heart rate regular rhythm, no murmur [] Lungs & Thorax: Bilateral breath sounds clear to auscultation [] Abdomen: Bowel sounds normal, soft, no tenderness, no masses, no pulsatile masses. [] Skin: Warm, dry, no erythema, no rash. [] Back: No tenderness, no CVA tenderness. [] Extremities: No tenderness, no cyanosis, no clubbing, ROM intact, no edema. [] Neurologic: Alert and oriented X 3, normal motor function, normal sensory functi on, no focal deficits noted. [] Psychologic: Affect normal, judgement normal, mood normal. [] Current Patient Data: Labs: Laboratory Tests Test 02/21/20 20:45 White Blood Count 13.8 x10^3/uL (4.0-11.0) H Red Blood Count 4.47 x10^6/uL (3.50-5.40) Hemoglobin 11.7 g/dL (12.0-15.5) L Hematocrit 36.1 % (36.0-47.0) Mean Corpuscular Volume 81 fL (79-100) Mean Corpuscular Hemoglobin 26 pg (25-35) Mean Corpuscular Hemoglobin Concent 32 g/dL (31-37) Red Cell Distribution Width 18.7 % (11.5-14.5) H Platelet Count 222 x10^3/uL (140-400) Neutrophils (%) (Auto) 67 % (31-73) Lymphocytes (%) (Auto) 19 % (24-48) L Monocytes (%) (Auto) 8 % (0-9) Eosinophils (%) (Auto) 5 % (0-3) H Basophils (%) (Auto) 1 % (0-3) Neutrophils # (Auto) 9.2 x10^3/uL (1.8-7.7) H Lymphocytes # (Auto) 2.7 x10^3/uL (1.0-4.8) Monocytes # (Auto) 1.0 x10^3/uL (0.0-1.1) Eosinophils # (Auto) 0.7 x10^3/uL (0.0-0.7) Basophils # (Auto) 0.1 x10^3/uL (0.0-0.2) Sodium Level 141 mmol/L (136-145) Potassium Level 4.9 mmol/L (3.5-5.1) Chloride Level 104 mmol/L (98-107) Carbon Dioxide Level 27 mmol/L (21-32) Anion Gap 10 (6-14) Blood Urea Nitrogen 38 mg/dL (7-20) H Creatinine 3.9 mg/dL (0.6-1.0) H Estimated GFR (Cockcroft-Gault) 14.1 BUN/Creatinine Ratio 10 (6-20) Glucose Level 125 mg/dL (70-99) H Calcium Level 8.7 mg/dL (8.5-10.1) Magnesium Level 2.0 mg/dL (1.8-2.4) Total Bilirubin 0.1 mg/dL (0.2-1.0) L Aspartate Amino Transferase (AST) 16 U/L (15-37) Alanine Aminotransferase (ALT) 19 U/L (14-59) Alkaline Phosphatase 60 U/L (46-116) Troponin I Quantitative < 0.017 ng/mL (0.000-0.055) Total Protein 6.9 g/dL (6.4-8.2) Albumin 3.4 g/dL (3.4-5.0) Albumin/Globulin Ratio 1.0 (1.0-1.7) Laboratory Tests 02/21/20 20:45 Laboratory Tests 02/21/20 20:45 Vital Signs: Vital Signs Date Time Temp Pulse Resp B/P (MAP) Pulse Ox O2 Delivery O2 Flow Rate FiO2 02/21/20 23:20 98 Room Air 02/21/20 22:13 85 25 02/21/20 21:59 99.3 206/104 (138) 99.3 EKG: EKG: EKG was done at 2207, heart rate 63 bpm, normal sinus rhythm, no ST segment nicole vation. Radiology/Procedures: Radiology/Procedures: [][facility] [address] [place] [address] IMAGING REPORT Signed PATIENT: HERRERA BERKOWITZ ACCOUNT: [id number] : 1955 LOCATION: ER AGE: 64 SEX: F EXAM STATUS: REG ER ORD. PHYSICIAN: ASHLEY DA SILVA DO REASON: HEADACHE, HYPERTENSIVE PROCEDURE: CT HEAD WO CONTRAST EXAM: CT HEAD WITHOUT CONTRAST. HISTORY: Headache, hypertension. TECHNIQUE: Computed tomography of the head was performed without intravenous contrast. One or more of the following individualized dose reduction techniques were utilized for this examination: 1. Automated exposure control. 2. Adjustment of the mA and/or kV according to patient size. 3. Use of iterative reconstruction technique. COMPARISON: None. FINDINGS: There is no intracranial hemorrhage. 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 There is moderate chronic microangiopathic white matter change elsewhere. The ventricles are normal in size and position. The visualized paranasal sinuses appear clear. The orbits are unremarkable. The temporal bones are unremarkable. The calvarium reveals no suspicious lesions. IMPRESSION: 1. Subacute to chronic left occipital lobe. Correlate with symptoms to differentiate. 2. Moderate chronic microangiopathic white matter change. Electronically signed by: Sidra Thibodeaux MD (02/21/2020 11:36 PM) [facility] DICTATED and SIGNED BY: PATTI THIBODEAUX MD DATE: 02/21/20 2336 [facility] [address] [place] [address] IMAGING REPORT Signed PATIENT: HERRERA BERKOWITZ ACCOUNT: [id number] : 1955 LOCATION: ER AGE: 64 SEX: F EXAM STATUS: REG ER ORD. PHYSICIAN: ASHLEY DA SILVA DO REASON: abdominal pain PROCEDURE: CT ABDOMEN PELVIS WO CONTRAST EXAM: CT ABDOMEN/PELVIS WITHOUT CONTRAST. HISTORY: Abdominal pain. TECHNIQUE: Computed tomography of the abdomen and pelvis was performed without intravenous contrast. One or more of the following individualized dose reduction techniques were utilized for this examination: 1. Automated exposure control. 2. Adjustment of the mA and/or kV according to patient size. 3. Use of iterative reconstruction technique. COMPARISON: 09/29/2019. FINDINGS: Lung windows through the visualized portions of the bases reveal a small to moderate pericardial effusion. A central venous catheter tip is partially visualized in the right atrium. Bone windows reveal no suspicious lesions. Chronic changes of sacroiliitis and secondary osteoarthritis are noted. There is slight grade 1 anterolisthesis from L4 through S1 from facet osteoarthritis. The liver, gallbladder, spleen, adrenal glands and pancreas are unremarkable without contrast. A calculus in the right renal lower pole measures 5 mm. Bilateral renal cysts appear benign and measure up to 1.9 cm in the right lower pole. At least mild bilateral renal atrophy is suspected. There are no pathologically enlarged lymph nodes. There is no evidence of appendicitis. There is no small bowel obstruction. Multiple midline supraumbilical hernias containing only fat. There is also small fat-containing umbilical hernia. Sigmoid diverticulosis is mild. IMPRESSION: 1. No cause for acute pain is identified. 2. Multiple small umbilical and supraumbilical hernias contain only fat. 3. 5 mm right renal lower pole calculus. 4. Moderate pericardial effusion. Electronically signed by: Sidra Thibodeaux MD (02/22/2020 1:26 AM) [facility] DICTATED and SIGNED BY: PATTI THIBODEAUX MD DATE: 02/22/20 0126 Course & Med Decision Making: Course & Med Decision Making Pertinent Labs and Imaging studies reviewed. (See chart for details) Patient was given Pepcid and GI cocktail in ER, she feels much better. Denies any chest pain or abdominal pain at this time. CT scan her head did not show any acute problem. Patient was given blood pressure medication in the ER, her blood pressure improved. Patient will be discharged home, she will need to follow-up with her family physician for reevaluation. Patient is amenable to plan of care. Dragon Disclaimer: Dragon Disclaimer: This electronic medical record was generated, in whole or in part, using a voice recognition dictation system. Departure Departure Impression: Primary Impression: Hypertension Additional Impression: Gastritis Disposition: 01 DC HOME SELF CARE/HOMELESS Condition: IMPROVED Referrals: RICKY PORTILLO MD (PCP) PLEASE FOLLOW UP WITH YOUR PCP THIS WEEK FOR REEVALUATION Patient Instructions: Gastritis, Adult, Hypertension Additional Instructions: Thank you for visiting our Emergency Department. We appreciate you trusting us with your care. If any additional problems come up don't hesitate to return to visit us. Please follow up with your primary care provider so they can plan additional care if needed and know about the problem that you had. If symptoms worsen come back to the Emergency Department. Any concerning symptoms that start such as chest pain, shortness of air, weakness or numbness on one side of the body, running high fevers or any other concerning symptoms return to the ER. Scripts Sucralfate (CARAFATE) 1 Gm Tablet 1 TAB PO QID for 14 Days, #56 TAB 0 Refills Prov: ASHLEY DA SILVA DO 02/22/20 Omeprazole Magnesium (PRILOSEC OTC) 20 Mg Tablet. 20 MG PO DAILY for 30 Days, #30 TAB Prov: ASHLEY DA SILVA DO 02/22/20 ASHLEY DA SILVA DO Feb 21, 2020 23:36
[2020-02-21] MEDS ORDERED: FAMOTIDINE 20 MG TABLET. PO ONE (23:45)
[2020-02-21] MEDS ORDERED: LIDO:MAALOX 1:1 20 ML SINGLE DOSE. SWSW ONE (23:45)
--- NOTE | 2020-02-21 23:59 | RAD ---
EXAM: CHEST AP ONLY 02/21/2020 10:47 PM CLINICAL INDICATION: Chest pain COMPARISON: Chest radiograph 11/16/2019 TECHNIQUE: AP upright view the chest FINDINGS: A right IJ catheter with tip projecting over the superior cavoatrial junction is unchanged. Mild cardiomegaly is unchanged. Lungs are well-expanded. No consolidation, pleural effusion, or pneumothorax. No pulmonary edema. There is elevation of the right distal clavicle relative to the acromion, which may be sequela of AC joint injury. IMPRESSION: No acute cardiopulmonary abnormality. Electronically signed by: Bety Garcia MD (02/21/2020 11:56 PM) [id number]
--- NOTE | 2020-02-22 01:29 | RAD ---
EXAM: CT ABDOMEN/PELVIS WITHOUT CONTRAST. HISTORY: Abdominal pain. TECHNIQUE: Computed tomography of the abdomen and pelvis was performed without intravenous contrast. One or more of the following individualized dose reduction techniques were utilized for this examination: 1. Automated exposure control. 2. Adjustment of the mA and/or kV according to patient size. 3. Use of iterative reconstruction technique. COMPARISON: 09/29/2019. FINDINGS: Lung windows through the visualized portions of the bases reveal a small to moderate pericardial effusion. A central venous catheter tip is partially visualized in the right atrium. Bone windows reveal no suspicious lesions. Chronic changes of sacroiliitis and secondary osteoarthritis are noted. There is slight grade 1 anterolisthesis from L4 through S1 from facet osteoarthritis. The liver, gallbladder, spleen, adrenal glands and pancreas are unremarkable without contrast. A calculus in the right renal lower pole measures 5 mm. Bilateral renal cysts appear benign and measure up to 1.9 cm in the right lower pole. At least mild bilateral renal atrophy is suspected. There are no pathologically enlarged lymph nodes. There is no evidence of appendicitis. There is no small bowel obstruction. Multiple midline supraumbilical hernias containing only fat. There is also small fat-containing umbilical hernia. Sigmoid diverticulosis is mild. IMPRESSION: 1. No cause for acute pain is identified. 2. Multiple small umbilical and supraumbilical hernias contain only fat. 3. 5 mm right renal lower pole calculus. 4. Moderate pericardial effusion. Electronically signed by: Sidra Thibodeaux MD (02/22/2020 1:26 AM) [facility]
[2020-02-22] MEDS ORDERED: cloNIDine HCL 0.1 MG TABLET PO ONE (02:00)
[2020-02-22] MEDS ORDERED: LABETALOL 20 MG/4 ML DISP.SYRIN. IVP ONE (02:00)
[2020-02-22 02:43] VITALS: BP 181/113
[2020-02-22] MEDS ORDERED: SUCR1TAB35 PO (02:43)
[2020-02-22] MEDS ORDERED: OMEP20TA63 PO (02:43)
== END 2020-02-22 02:59 | disposition home or self-care (01) ==
LOC: ER 21:43
DX: I10 Essential (primary) hypertension (principal); K29.70 Gastritis, unspecified, without bleeding; R51.9 Headache, unspecified; R10.13 Epigastric pain; R05 Cough; J45.909 Unspecified asthma, uncomplicated; E11.9 Type 2 diabetes mellitus without complications; E78.00 Pure hypercholesterolemia, unspecified; N18.6 End stage renal disease; F17.200 Nicotine dependence, unspecified, uncomplicated; Z98.890 Other specified postprocedural states; Z91.040 Latex allergy status
CPT/HCPCS: 36415; 70450; 71045; 74176; 80053; 83735; 84484; 85025; 94640; 96374; 99285; J3490

== ENCOUNTER 2020-03-30 09:39 | Day surgery (SDC) | payer MEDICAID ==
[~2020-03-30] VITALS: Ht 152.4 cm; Wt 90.0 kg
[~2020-03-30 09:39] MED LIST changes: +CLOP75TA PO; +HEPARIN SODIUM 5,000 UNIT in IV NORMAL SALINE 500ML BAG 500 ML IRR ONE; +HYDROmorphone 2 MG/ML VIAL IV PRN; +MORPHINE SULFATE 2 MG/ML VIAL. IV PRN; +NAPR-695 PO; +OMEP20CA16 PO; +OMEP20TA63 PO; +ONDANSETRON PF 4 MG/2 ML VIAL. IV PRN; +PROCHLORPERAZINE 10 MG/2 ML VIAL. IV PRN; +SUCR1TAB35 PO; +VIT1TABL91 PO; +fentaNYL PF VIAL 100 MCG/2 ML VIAL IV PRN
[2020-03-30] MEDS ORDERED: IV NORMAL SALINE 1000ML BAG 1,000 ML IV SCH (09:45)
[2020-03-30] MEDS ORDERED: LIDOCAINE 1% Multi-Dose 20 ML VIAL. ONE ×2 (09:49→09:50)
[2020-03-30] MEDS ORDERED: SURGICEL FIBRILLAR 1X2 EACH. ONE (09:49)
[2020-03-30] MEDS ORDERED: PAPAVERINE 60 MG/2 ML VIAL. ONE (09:50)
[2020-03-30 10:39] LABS: BASO % 1 % (0-3); EOS # 0.3 x10^3/uL (0.0-0.7); EOS % 4 % (0-3); HEMATOCRIT 36.4 % (36.0-47.0); HEMOGLOBIN 11.9 g/dL (12.0-15.5); LYMPH # 1.8 x10^3/uL (1.0-4.8); LYMPH % 22 % (24-48); MEAN CORPUSCULAR HEMOGLOBIN 26 pg (25-35); MEAN CORPUSCULAR HGB CONC 33 g/dL (31-37); MEAN CORPUSCULAR VOLUME 81 fL (79-100); MONO # 0.8 x10^3/uL (0.0-1.1); MONO % 10 % (0-9); NEUT # 5.2 x10^3/uL (1.8-7.7); NEUT % 63 % (31-73); PLATELET COUNT 203 x10^3/uL (140-400); RED BLOOD COUNT 4.49 x10^6/uL (3.50-5.40); RED CELL DISTRIBUTION WIDTH 17.7 % (11.5-14.5); WHITE BLOOD COUNT 8.2 x10^3/uL (4.0-11.0)
[2020-03-30 11:00] LABS: CALCIUM 8.8 mg/dL (8.5-10.1); CREATININE 5.7 mg/dL (0.6-1.0); GFR 9.1; POTASSIUM 4.9 mmol/L (3.5-5.1)
[2020-03-30] MEDS ORDERED: INSULIN LISPRO 100 UNIT/ML 3ML VIAL for OP,RR ONLY. SQ ONE (11:15)
[2020-03-30] MEDS ORDERED: INSULIN LISPRO 100 UNIT/ML 3ML VIAL for OP,RR ONLY. SQ PRN (11:15)
[2020-03-30] MEDS ORDERED: ONDANSETRON PF 4 MG/2 ML VIAL. ONE (11:52)
[2020-03-30] MEDS ORDERED: PROPOFOL 10 MG/ML (20ML) VIAL. IV ONE ×2 (11:52→13:30)
[2020-03-30] MEDS ORDERED: LIDOCAINE 2% PF 5 ML VIAL. ONE (11:52)
[2020-03-30] MEDS ORDERED: DEXAMETHASONE SOD PHOS 4 MG/ML VIAL ONE (11:52)
[2020-03-30] MEDS ORDERED: fentaNYL PF VIAL 100 MCG/2 ML VIAL ONE (11:53)
[2020-03-30] MEDS ORDERED: BUPIVACAINE MPF 0.5% 30 ML VIAL. ONE (12:56)
[2020-03-30] MEDS ORDERED: HEPARIN for IV BOLUS 10,000 UNIT/10 ML VIAL. ONE (13:28)
[2020-03-30] MEDS ORDERED: HYDROcodone/APAP 5/325MG 1 TAB TABLET PO PRN (14:15)
--- NOTE | 2020-03-30 14:19 | PDOC ---
BRIEF OPERATIVE NOTE Date: Mar 30, 2020 Pre-Op Diagnosis End stage renal disease Post-Op Diagnosis Same Procedure Performed Left arm arteriovenous fistula creation Surgeon Parisa Scott MD Senior Chemical Process Engineer MADONNA Fernández Anesthesiologist Shilpa Anesthesia Type: General Blood Loss 10mL Specimens Obtained None Findings Good thrill and radial pulse palpable immediate post op Complications None Operative Note See dictated op note MEGHA HOLDEN Mar 30, 2020 14:19
--- NOTE | 2020-03-30 14:33 | OP ---
DATE OF SURGERY: 03/30/2020 SURGEON: Parisa Scott MD. TEXTILE STYLIST: Millicent Razo, physician digital sales assistant. PREOPERATIVE DIAGNOSIS: End-stage renal disease, on chronic hemodialysis. POSTOPERATIVE DIAGNOSIS: End-stage renal disease, on chronic hemodialysis. OPERATION PERFORMED: Left arm brachial artery to cephalic vein fistula. ANESTHESIA USED: General anesthesia. BLOOD LOSS: Approximately 10 mL. INDICATIONS: The patient is a 64-year-old female with end-stage renal disease, on chronic hemodialysis. She is currently dialyzing through a right chest PermCath. She is right arm dominant and prefers the access in her left arm if possible. I plan on a left arm either radial artery to cephalic vein fistula versus brachial artery to cephalic vein fistula. We will ultrasound her vein during the procedure. There is a possibility that she could need an arterial to venous shunt if there are no adequate veins. Informed consent was obtained. DETAILS OF THE OPERATION: The patient was brought to the operating room and placed on table in supine position. She received general anesthesia monitored throughout the case by the anesthesiologist. We placed a tourniquet band in her left upper arm and ultrasounded her left arm. Her cephalic vein throughout the upper arm in the antecubital location was of very good size at least 6-7 mm in diameter and easily compressible. In the forearm, the cephalic vein was opened in the upper forearm, but when we got to the mid and wrist level, there was a long segment of the vein, which was very small and fibrotic. I did not feel a radial artery to cephalic vein fistula would be possible because of this very small cephalic vein at this location and feel she will do well with the brachial artery to cephalic vein fistula. We marked the area of the cephalic vein distal to the antecubital location. Her left arm was then prepped from the axilla down to her hand circumferentially by normal sterile fashion. We made a transverse incision just distal to the left antecubital location over the area of the cephalic vein and brachial artery. I dissected down through the subcutaneous tissue down to the cephalic vein. It was of good size at least 6-7 mm in diameter. We dissected it out proximally and distally within the wound. Medial to this, we dissected down through the subcutaneous tissue and the fascia down to the brachial vessels. The brachial artery was dissected out proximally and distally and had a good palpable pulse within it and was soft and noncalcified. We heparinized with 4000 units of heparin. We dissected out the distal cephalic vein. There were several branches, which were ligated with silk sutures, clips and divided and then the distal cephalic vein was ligated with 2-0 silk suture, a clip and we divided the vein. The end of the cephalic vein was widely patent with good backbleeding. There was a valve at the end, we spatulated it to size and excised out the valves. We advanced a pediatric feeding tube easily, which flushed easily with heparinized saline and placed a spring bulldog. We brought it over to the area of the brachial artery. The brachial artery was clamped proximally and distally. A longitudinal arteriotomy was made in the anterior wall of the brachial artery. The lumen was widely patent. There was pulsatile inflow and good backbleeding from the artery. We performed an anastomosis in end-to-side fashion between the end of the cephalic vein and the open brachial artery with running 6-0 Prolene suture. Prior to finishing this, we backbled the distal artery and there was pulsatile inflow through the proximal artery. We then finished our anastomosis and restored blood flow first to the fistula and then to the arm. The vein dilated very nicely within the wound. There was no tension on the cephalic vein. We dissected out the proximal aspect of it again ensuring that there was no residual branches. There was strong dopplerable flow in the proximal and distal brachial artery and at the radial artery location at the wrist and a palpable pulse. There was a good thrill over the cephalic vein in the upper arm. We irrigated the open wound with copious amounts of saline. Good hemostasis was gained. Fibrillar was left around the anastomosis and over the vein. We closed the subcutaneous tissue level with running 3-0 Vicryl suture and closed the skin with running 4-0 Vicryl subcuticular suture. Steri-Strips were placed on the incision and a sterile bandage. She tolerated the surgery with no immediate complications. Millicent Razo was scrubbed throughout the entire length of the case, helped with the dissection, anastomosis and closure. SPECIMEN REMOVED: None. PARISA SCOTT MD DR: JOAN/kat JOB#: [id number] / [id number]
[2020-03-30 15:10] VITALS: BP 146/64
[2020-03-30] MEDS ORDERED: HYDR-3164 PO (15:25)
== END 2020-03-30 16:00 | disposition home or self-care (01) ==
LOC: SURG 09:39
PROVIDERS: ATTEND Surgery Vascular Surgery
DX: I12.0 Hypertensive chronic kidney disease with stage 5 chronic kidney disease or end stage renal disease (principal); N18.6 End stage renal disease; Z20.828 Contact with and (suspected) exposure to other viral communicable diseases; Z79.82 Long term (current) use of aspirin; Z79.899 Other long term (current) drug therapy; Z91.041 Radiographic dye allergy status
CPT/HCPCS: 36415; 36818; 80048; 82962; 85025; 87426; C1713; C9803; J0690; J1100; J1644; J1815; J2405; J2704; J3010; J3490; J7040; U0003; J2440

== ENCOUNTER 2020-03-31 01:59 | Observation (INO) | payer MEDICAID ==
[~2020-03-31] VITALS: Ht 152.4 cm; Wt 93.6 kg
[~2020-03-31 01:59] MED LIST changes: -HEPARIN SODIUM 5,000 UNIT in IV NORMAL SALINE 500ML BAG 500 ML IRR ONE; -HYDROmorphone 2 MG/ML VIAL IV PRN; -MORPHINE SULFATE 2 MG/ML VIAL. IV PRN; -ONDANSETRON PF 4 MG/2 ML VIAL. IV PRN; -PROCHLORPERAZINE 10 MG/2 ML VIAL. IV PRN; -fentaNYL PF VIAL 100 MCG/2 ML VIAL IV PRN
[2020-03-31] MEDS ORDERED: DEXAMETHASONE SOD PHOS 20 MG/5 ML VIAL. IVP ONE (02:30)
[2020-03-31] MEDS ORDERED: RACEPINEPHRINE 2.25% 0.5 ML NEBU. NEB ONE (02:30)
[2020-03-31 03:49] LABS: BASO # 0.1 x10^3/uL (0.0-0.2); BASO % 1 % (0-3); EOS % 0 % (0-3); HEMATOCRIT 35.4 % (36.0-47.0); HEMOGLOBIN 11.4 g/dL (12.0-15.5); LYMPH % 10 % (24-48); MEAN CORPUSCULAR HEMOGLOBIN 26 pg (25-35); MEAN CORPUSCULAR HGB CONC 32 g/dL (31-37); MEAN CORPUSCULAR VOLUME 82 fL (79-100); MONO # 0.3 x10^3/uL (0.0-1.1); MONO % 3 % (0-9); NEUT # 8.3 x10^3/uL (1.8-7.7); NEUT % 87 % (31-73); PLATELET COUNT 194 x10^3/uL (140-400); RED BLOOD COUNT 4.34 x10^6/uL (3.50-5.40); RED CELL DISTRIBUTION WIDTH 17.4 % (11.5-14.5); WHITE BLOOD COUNT 9.6 x10^3/uL (4.0-11.0)
[2020-03-31 04:14] LABS: CALCIUM 8.6 mg/dL (8.5-10.1); CREATININE 6.9 mg/dL (0.6-1.0); GFR 7.3
--- NOTE | 2020-03-31 04:15 | ED.ADGEN ---
Past Medical History Past Medical History: Asthma, Diabetes-Type II, High Cholesterol, Hypertension, Renal Failure Additional Past Medical Histor: sleep apnea; ulcers; GI bleed, Stage 5 CKD Past Surgical History: , Other Additional Past Surgical Histo: hernia; right chest diaylsis catheter, LEFT ARM AV FISTULA MAR 30, 2020 Smoking Status: Current Every Day Smoker Alcohol Use: None Drug Use: None General Adult EDM: Chief Complaint: SHORTNESS OF BREATH HPI: HPI: Patient is 64-year-old female presents to the emergency room complaining of shortness of breath. Patient was intubated earlier today to have an AV fistula placed. She had a traumatic intubation. She was able to eat and drink afterwards. She has slowly developed a feeling of swelling in her throat and difficulty with breathing. She denies feeling ill prior to this. She does not have any cough or URI symptoms. She is not had any kind of fever. Review of Systems: Review of Systems: Complete ROS is negative unless otherwise documented in HPI Current Medications: Current Medications Medications (Trade) Dose Ordered Sig/Howard Start Time Stop Time Status Last Admin Dose Admin Dexamethasone Sodium Phosphate (Decadron) 10 mg 1X ONCE 03/31/20 02:30 03/31/20 02:31 DC 03/31/20 03:04 10 MG Epinephrine (S2 Racepinephrine) 0.5 ml 1X ONCE 03/31/20 02:30 03/31/20 02:31 DC 03/31/20 02:25 0.5 ML Allergies: Allergies: Allergies Coded Allergies Type Severity Reaction Last Updated Verified Iodinated Contrast Media Adverse Reaction Intermediate Nausea and Vomiting 03/30/20 Yes Physical Exam: PE: General: Awake, alert, mild distress. Well Nourished, well hydrated. Cooperative HEENT: Atraumatic, EOMI, PERRL, airway patent, moist oral mucosa, petechiae to the soft palate, uvula, posterior pharynx Neck: Supple, trachea midline, mild stridor Respiratory: CTA bilaterally, normal effort, no wheezing/crackles CV: RRR, no murmur, cap refill <2 GI: Soft, nondistended, nontender, no masses MSK: No obvious deformities Skin: Warm, dry, intact Neuro: A&O x3, speech NL, sensory and motor grossly intact, no focal deficits Psych: Normal affect, normal mood, not suicidal or homicidal Current Patient Data: Vital Signs: Vital Signs Date Time Temp Pulse Resp B/P (MAP) Pulse Ox O2 Delivery O2 Flow Rate FiO2 03/31/20 02:26 95 Room Air 03/31/20 02:00 99.0 101 24 206/101 (136) 99.0 EKG: EKG: [] Heart Score: Risk Factors: Risk Factors: DM, Current or recent (<one month) smoker, HTN, HLP, family history of CAD, obesity. Risk Scores: Score 0 - 3: 2.5% MACE over next 6 weeks - Discharge Home Score 4 - 6: 20.3% MACE over next 6 weeks - Admit for Clinical Observation Score 7 - 10: 72.7% MACE over next 6 weeks - Early Invasive Strategies Radiology/Procedures: Radiology/Procedures: [] Course & Med Decision Making: Course & Med Decision Making Pertinent Labs and Imaging studies reviewed. (See chart for details) Patient is a 64-year-old female presents to the emergency room complaining of shortness of breath due to airway swelling. Patient does appear to have la chiae and some mild swelling in the back of the throat. She is oxygenating well and is not in respiratory distress. At this time she does not need intubation. She was given racemic epi with significant improvement. She will be given Decadron. Patient will need to be admitted for observation. Germania Disclaimer: Germania Disclaimer: This electronic medical record was generated, in whole or in part, using a voice recognition dictation system. Departure Departure Impression: Primary Impression: Postextubation stridor Disposition: ADMITTED INPT THIS HOSP Condition: IMPROVED Referrals: RICKY PORTILLO MD (PCP) SHI KUMARI MD Mar 31, 2020 04:15
[2020-03-31 04:17] LABS: POTASSIUM 6.2 mmol/L (3.5-5.1)
[2020-03-31 05:35] VITALS: BP 163/98
[2020-03-31 05:43] LABS: % BANDS 2 % (0-9); % LYMPHS 9 % (24-48); % SEGS 89 % (35-66); ANISOCYTOSIS SLIGHT; PLT ESTIMATE ADEQUATE (ADEQUATE)
--- NOTE | 2020-03-31 06:21 | NUR ---
Pt arrived to room 201 at 0535 per cart .Pt ambulated to bed pt oriented to surroundings and call light vs obtained and stable tele monitor applied to pt. Poc explained to pt will resume care and continue to monitor pt.
[2020-03-31 07:00] VITALS: BP 163/98
[2020-03-31] MEDS: IPRATRPIUM/ALBUTEROL 0.5/2.5MG 3 ML NEBU. NEB SCH ×3 (08:51→15:55)
[2020-03-31] MEDS ORDERED: RACEPINEPHRINE 2.25% 0.5 ML NEBU. NEB PRN (09:30)
[2020-03-31] MEDS ORDERED: HYDROcodone/APAP 5/325MG 1 TAB TABLET PO PRN (09:30)
[2020-03-31] MEDS ORDERED: ACETAMINOPHEN 325 MG TABLET. PO PRN (09:45)
[2020-03-31] MEDS ORDERED: ONDANSETRON PF 4 MG/2 ML VIAL. IVP PRN (09:45)
[2020-03-31] MEDS ORDERED: IV NORMAL SALINE 1000ML BAG 1,000 ML IV PRN ×2 (09:45)
[2020-03-31] MEDS ORDERED: MAGNESIUM HYDROXIDE 2,400 MG/30 ML ORAL.SUSP. PO PRN (09:45)
[2020-03-31] MEDS ORDERED: BISACODYL 10 MG SUPP.RECT. PR PRN (09:45)
[2020-03-31] MEDS ORDERED: ZOLPIDEM 5 MG TABLET. PO PRN (09:45)
--- NOTE | 2020-03-31 09:57 | PDOC1 ---
History and Physical Date of Admission Date of Admission DATE: 03/31/20 TIME: 09:38 Identification/Chief Complaint Chief Complaint Shortness of breath Source Source: Caregiver, Patient History of Present Illness History of Present Illness Patient 61-year-old female with past medical history end-stage renal disease, who presents to the ER with complaints of worsening shortness of breath. Patient states her symptoms began yesterday and have been happening traumatic intubation for AV fistula placement. She reports gradually developing feeling of swelling in her throat after extubation, but was able to tolerate oral intake. Associated sore throat. Per EMS report, there was some upper airway stridor. In the ER she received Decadron and racemic epinephrine with improvement. Patient was admitted for further medical management and observation. Past Medical History Cardiovascular: HTN, Hyperlipidemia, Other Pulmonary: COPD, Other CENTRAL NERVOUS SYSTEM: Migraine GI: Constipation, Diverticulosis, GERD, GI bleed, Peptic Ulcer disease Heme/Onc: No pertinent hx Hepatobiliary: Hep A/B/C Psych: Anxiety, Depression Rheumatologic: No pertinent hx Infectious disease: No pertinent hx Renal/: Chronic renal insuff Endocrine: Diabetes Past Surgical History Past Surgical History: , Hernia Repair, Colon Resection, Other (AV fistula placement) Family History Family History: No Significant Social History Smoke: 1 pack per day ALCOHOL: none Drugs: None Current Problem List Problem List Problems Medical Problems: (1) Postextubation stridor Status: Acute Current Medications Current Medications Current Medications Epinephrine (S2 Racepinephrine) 0.5 ml 1X ONCE NEB Last administered on 03/31/20at 02:25; Start 03/31/20 at 02:30; Stop 03/31/20 at 02:31; Status DC Dexamethasone Sodium Phosphate (Decadron) 10 mg 1X ONCE IVP Last administered on 03/31/20at 03:04; Start 03/31/20 at 02:30; Stop 03/31/20 at 02:31; Status DC Albuterol/ Ipratropium (Duoneb) 3 ml RTQID NEB Last administered on 03/31/20at 08:51; Start 03/31/20 at 08:45 Active Scripts Active Carafate (Sucralfate) 1 Gm Tablet 1 Tab PO QID 14 Days Polyethylene Glycol 3350 17 Gm Powd.pack 17 Gm PO QHS 30 Days Aspirin Ec (Aspirin) 81 Mg Tablet.dr 81 Mg PO DAILYWBKFT 30 Days Aldactone (Spironolactone) 25 Mg Tablet 25 Mg PO BID 30 Days Diltiazem 24Hr Cd (Diltiazem HCl) 240 Mg Cap.er.24h 240 Mg PO DAILY 30 Days Fluticasone Propionate Nasal [place] (Fluticasone Propionate) 16 Gm [place].susp 2 [place] NS DAILY 30 Days Reported [place] 5-325 Tablet (Acetaminophen/Hydrocodone Bitart) 1 Each Tablet 1 Tab PO PRN Q4HRS PRN Naproxen 375 Mg Tablet 1 Tab PO BID 30 Days with food Poultry Helper-Onur Rx Tablet (Vit B Cmplx 3/FA/Vit C/Biotin) 1 Each Tablet 1 Each PO DAILY Clopidogrel (Clopidogrel Bisulfate) 75 Mg Tablet 75 Mg PO DAILY Omeprazole 20 Mg Capsule.dr 1 Cap PO DAILY Labetalol Hcl 100 Mg Tablet 1 Tab PO BID Hydralazine Hcl 50 Mg Tablet 1 Tab PO BID Isosorbide Mononitrate Er (Isosorbide Mononitrate) 60 Mg Tab.er.24h 60 Mg PO DAILY Albuterol Sulfate Hfa Inhaler (Albuterol Sulfate) 8.5 Gm Hfa.aer.ad 8.5 Gm IH Allergies Allergies: Coded Allergies: Iodinated Contrast Media (Verified Adverse Reaction, Intermediate, Nausea and Vomiting, 03/30/20) ROS Review of System GENERAL: No history of weight change, weakness or fevers. SKIN: No bruising, hair changes or rashes. EYES: No blurred, double or loss of vision. NOSE AND THROAT: Sore throat. No history of nosebleeds, hoarseness. HEART: Denies chest pain, denies palpitations. LUNGS: Shortness of breath. Denies cough, hemoptysis, wheezing. GASTROINTESTINAL: Denies nausea, vomiting, abdominal pain. GENITOURINARY: Denies dysuria, frequency, urgency, hematuria. NEUROLOGIC: Denies history of numbness, tingling, tremor or weakness. PSYCHIATRIC: Denies anxiety, denies depression. ENDOCRINE: No history of heat or cold intolerance, polyuria or polydipsia. EXTREMITIES: Denies muscle weakness, joint pain, pain on walking or stiffness. Physical Exam Physical Exam General: Alert, Oriented X3, Cooperative, No acute distress HEENT: PERRLA, EOMI Lungs: Clear to auscultation, Normal air movement Heart: RRR, no murmurs Cardiovascular: S1, S2 Abdomen: Normal bowel sounds, Soft, No tenderness Extremities: No clubbing, No cyanosis Skin: No rashes, No significant lesion Neuro: Normal speech, Normal tone, Sensation intact Psych/Mental Status: Mental status NL, Mood NL Vitals Vitals Vital Signs Date Time Temp Pulse Resp B/P (MAP) Pulse Ox O2 Delivery O2 Flow Rate FiO2 03/31/20 08:53 Room Air 03/31/20 07:00 98.7 127 18 163/98 (119) 94 98.7 Labs Labs Laboratory Tests Test 03/31/20 03:00 03/31/20 07:21 White Blood Count 9.6 x10^3/uL (4.0-11.0) Red Blood Count 4.34 x10^6/uL (3.50-5.40) Hemoglobin 11.4 g/dL (12.0-15.5) Hematocrit 35.4 % (36.0-47.0) Mean Corpuscular Volume 82 fL (79-100) Mean Corpuscular Hemoglobin 26 pg (25-35) Mean Corpuscular Hemoglobin Concent 32 g/dL (31-37) Red Cell Distribution Width 17.4 % (11.5-14.5) Platelet Count 194 x10^3/uL (140-400) Neutrophils (%) (Auto) 87 % (31-73) Lymphocytes (%) (Auto) 10 % (24-48) Monocytes (%) (Auto) 3 % (0-9) Eosinophils (%) (Auto) 0 % (0-3) Basophils (%) (Auto) 1 % (0-3) Neutrophils # (Auto) 8.3 x10^3/uL (1.8-7.7) Lymphocytes # (Auto) 1.0 x10^3/uL (1.0-4.8) Monocytes # (Auto) 0.3 x10^3/uL (0.0-1.1) Eosinophils # (Auto) 0.0 x10^3/uL (0.0-0.7) Basophils # (Auto) 0.1 x10^3/uL (0.0-0.2) Segmented Neutrophils % 89 % (35-66) Band Neutrophils % 2 % (0-9) Lymphocytes % 9 % (24-48) Platelet Estimate Adequate (ADEQUATE) Anisocytosis Slight Sodium Level 137 mmol/L (136-145) Potassium Level 6.2 mmol/L (3.5-5.1) Chloride Level 101 mmol/L (98-107) Carbon Dioxide Level 23 mmol/L (21-32) Anion Gap 13 (6-14) Blood Urea Nitrogen 51 mg/dL (7-20) Creatinine 6.9 mg/dL (0.6-1.0) Estimated GFR (Cockcroft-Gault) 7.3 Glucose Level 178 mg/dL (70-99) Calcium Level 8.6 mg/dL (8.5-10.1) Glucose (Fingerstick) 163 mg/dL (70-99) Laboratory Tests Test 03/31/20 03:00 03/31/20 07:21 White Blood Count 9.6 x10^3/uL (4.0-11.0) Red Blood Count 4.34 x10^6/uL (3.50-5.40) Hemoglobin 11.4 g/dL (12.0-15.5) Hematocrit 35.4 % (36.0-47.0) Mean Corpuscular Volume 82 fL (79-100) Mean Corpuscular Hemoglobin 26 pg (25-35) Mean Corpuscular Hemoglobin Concent 32 g/dL (31-37) Red Cell Distribution Width 17.4 % (11.5-14.5) Platelet Count 194 x10^3/uL (140-400) Neutrophils (%) (Auto) 87 % (31-73) Lymphocytes (%) (Auto) 10 % (24-48) Monocytes (%) (Auto) 3 % (0-9) Eosinophils (%) (Auto) 0 % (0-3) Basophils (%) (Auto) 1 % (0-3) Neutrophils # (Auto) 8.3 x10^3/uL (1.8-7.7) Lymphocytes # (Auto) 1.0 x10^3/uL (1.0-4.8) Monocytes # (Auto) 0.3 x10^3/uL (0.0-1.1) Eosinophils # (Auto) 0.0 x10^3/uL (0.0-0.7) Basophils # (Auto) 0.1 x10^3/uL (0.0-0.2) Segmented Neutrophils % 89 % (35-66) Band Neutrophils % 2 % (0-9) Lymphocytes % 9 % (24-48) Platelet Estimate Adequate (ADEQUATE) Anisocytosis Slight Sodium Level 137 mmol/L (136-145) Potassium Level 6.2 mmol/L (3.5-5.1) Chloride Level 101 mmol/L (98-107) Carbon Dioxide Level 23 mmol/L (21-32) Anion Gap 13 (6-14) Blood Urea Nitrogen 51 mg/dL (7-20) Creatinine 6.9 mg/dL (0.6-1.0) Estimated GFR (Cockcroft-Gault) 7.3 Glucose Level 178 mg/dL (70-99) Calcium Level 8.6 mg/dL (8.5-10.1) Glucose (Fingerstick) 163 mg/dL (70-99) VTE Prophylaxis Ordered VTE Prophylaxis Devices: No VTE Pharmacological Prophylaxi: Yes Assessment/Plan Assessment/Plan Postextubation stridor End-stage renal disease on hemodialysis Plan: Continue patient's treatment with DuoNeb and racemic epi as needed Patient currently breathing on room air saturating 94% Consultations placed to nephrology: Patient receiving dialysis today Resume home medications Will hold labetalol at this time due to interaction with epinephrine MDSS Insulin FEN - ADA diet PPX - Heparin FULL CODE Dispo - observation for above; will discharge today she tolerates her diet without issue. Justifications for Admission Other Justification WILMA TRUJILLO MD Mar 31, 2020 09:56
[2020-03-31] MEDS ORDERED: ASPIRIN ENTERIC COATED 81 MG TABLET.DR. PO SCH (10:00)
[2020-03-31] MEDS ORDERED: SPIRONOLACTONE 25 MG TABLET PO SCH (10:00)
[2020-03-31] MEDS ORDERED: ISOSORBIDE MONONITRATE ER 30 MG TAB.ER.24H PO SCH (10:00)
[2020-03-31] MEDS ORDERED: CLOPIDOGREL BISULFATE 75 MG TABLET PO SCH (10:00)
[2020-03-31] MEDS ORDERED: HEPARIN for SUB-Q USE 5,000 UNIT/ML VIAL. SQ SCH (11:00)
[2020-03-31] MEDS ORDERED: PANTOPRAZOLE 40 MG TABLET.DR. PO SCH (11:30)
[2020-03-31] MEDS ORDERED: DIALYSIS PATIENT. MC PRN ×2 (13:00)
[2020-03-31 14:00] VITALS: BP 151/80
[2020-03-31 14:44] VITALS: BP 151/80
--- NOTE | 2020-03-31 15:04 | PDOC3 ---
Discharge Summary Visit Information Date of Admission: Mar 31, 2020 Date of Discharge: Mar 31, 2020 Final Diagnosis Problems Medical Problems: (1) Postextubation stridor Status: Acute Brief Hospital Course Allergies Allergies Coded Allergies Type Severity Reaction Last Updated Verified Iodinated Contrast Media Adverse Reaction Intermediate Nausea and Vomiting 03/30/20 Yes Vital Signs Vital Signs Date Time Temp Pulse Resp B/P (MAP) Pulse Ox O2 Delivery O2 Flow Rate FiO2 03/31/20 14:44 101 151/80 03/31/20 14:00 98.6 18 92 Room Air 98.6 Lab Results Laboratory Tests Test 03/31/20 03:00 03/31/20 07:21 White Blood Count 9.6 x10^3/uL (4.0-11.0) Red Blood Count 4.34 x10^6/uL (3.50-5.40) Hemoglobin 11.4 g/dL (12.0-15.5) Hematocrit 35.4 % (36.0-47.0) Mean Corpuscular Volume 82 fL (79-100) Mean Corpuscular Hemoglobin 26 pg (25-35) Mean Corpuscular Hemoglobin Concent 32 g/dL (31-37) Red Cell Distribution Width 17.4 % (11.5-14.5) Platelet Count 194 x10^3/uL (140-400) Neutrophils (%) (Auto) 87 % (31-73) Lymphocytes (%) (Auto) 10 % (24-48) Monocytes (%) (Auto) 3 % (0-9) Eosinophils (%) (Auto) 0 % (0-3) Basophils (%) (Auto) 1 % (0-3) Neutrophils # (Auto) 8.3 x10^3/uL (1.8-7.7) Lymphocytes # (Auto) 1.0 x10^3/uL (1.0-4.8) Monocytes # (Auto) 0.3 x10^3/uL (0.0-1.1) Eosinophils # (Auto) 0.0 x10^3/uL (0.0-0.7) Basophils # (Auto) 0.1 x10^3/uL (0.0-0.2) Segmented Neutrophils % 89 % (35-66) Band Neutrophils % 2 % (0-9) Lymphocytes % 9 % (24-48) Platelet Estimate Adequate (ADEQUATE) Anisocytosis Slight Sodium Level 137 mmol/L (136-145) Potassium Level 6.2 mmol/L (3.5-5.1) Chloride Level 101 mmol/L (98-107) Carbon Dioxide Level 23 mmol/L (21-32) Anion Gap 13 (6-14) Blood Urea Nitrogen 51 mg/dL (7-20) Creatinine 6.9 mg/dL (0.6-1.0) Estimated GFR (Cockcroft-Gault) 7.3 Glucose Level 178 mg/dL (70-99) Calcium Level 8.6 mg/dL (8.5-10.1) Glucose (Fingerstick) 163 mg/dL (70-99) Laboratory Tests Test 03/31/20 03:00 03/31/20 07:21 White Blood Count 9.6 x10^3/uL (4.0-11.0) Red Blood Count 4.34 x10^6/uL (3.50-5.40) Hemoglobin 11.4 g/dL (12.0-15.5) Hematocrit 35.4 % (36.0-47.0) Mean Corpuscular Volume 82 fL (79-100) Mean Corpuscular Hemoglobin 26 pg (25-35) Mean Corpuscular Hemoglobin Concent 32 g/dL (31-37) Red Cell Distribution Width 17.4 % (11.5-14.5) Platelet Count 194 x10^3/uL (140-400) Neutrophils (%) (Auto) 87 % (31-73) Lymphocytes (%) (Auto) 10 % (24-48) Monocytes (%) (Auto) 3 % (0-9) Eosinophils (%) (Auto) 0 % (0-3) Basophils (%) (Auto) 1 % (0-3) Neutrophils # (Auto) 8.3 x10^3/uL (1.8-7.7) Lymphocytes # (Auto) 1.0 x10^3/uL (1.0-4.8) Monocytes # (Auto) 0.3 x10^3/uL (0.0-1.1) Eosinophils # (Auto) 0.0 x10^3/uL (0.0-0.7) Basophils # (Auto) 0.1 x10^3/uL (0.0-0.2) Segmented Neutrophils % 89 % (35-66) Band Neutrophils % 2 % (0-9) Lymphocytes % 9 % (24-48) Platelet Estimate Adequate (ADEQUATE) Anisocytosis Slight Sodium Level 137 mmol/L (136-145) Potassium Level 6.2 mmol/L (3.5-5.1) Chloride Level 101 mmol/L (98-107) Carbon Dioxide Level 23 mmol/L (21-32) Anion Gap 13 (6-14) Blood Urea Nitrogen 51 mg/dL (7-20) Creatinine 6.9 mg/dL (0.6-1.0) Estimated GFR (Cockcroft-Gault) 7.3 Glucose Level 178 mg/dL (70-99) Calcium Level 8.6 mg/dL (8.5-10.1) Glucose (Fingerstick) 163 mg/dL (70-99) Brief Hospital Course Ms. Persaud is a 64 old female with history of end-stage renal disease on HD, who presented with post extubation stridor. Patient states her symptoms began yesterday and have been happening traumatic intubation for AV fistula placement. She reports gradually developing feeling of swelling in her throat after extubation, but was able to tolerate oral intake. Associated sore throat. Per EMS report, there was some upper airway stridor. In the ER she received Decadron and racemic epinephrine with improvement. She was admitted for observation overnight. Patient was tolerating a diet without issue and felt comfortable discharging home. Assessment Assessment Post extubation stridor End-stage renal disease on HD Discharge Information Condition at Discharge: Improved Follow Up: Weeks Disposition/Orders: D/C to Home Scheduled Aspirin (Aspirin Ec) 81 Mg Tablet., 81 MG PO DAILYWBKFT for HEART HEALTH for 30 Days, #30 Prescribed by: KAROLINE BUSTOS MD on 11/03/19 1012 Last Action: Continued on 03/31/20932 by WILMA TRUJILLO MD Clopidogrel Bisulfate (Clopidogrel) 75 Mg Tablet, 75 MG PO DAILY for TO PREVENT BLOOD CLOTS, #30 Ref 0 (Reported) Entered as Reported by: CELINA PARIS on 03/27/20 1406 Last Action: Continued on 03/31/20932 by WILMA TRUJILLO MD Diltiazem HCl (Diltiazem 24Hr Cd) 240 Mg Cap.er.24h, 240 MG PO DAILY for HEART for 30 Days, #30 Prescribed by: KAROLINE BUSTOS MD on 11/03/19 1012 Last Action: Continued on 03/31/20932 by WILMA TRUJILLO MD Fluticasone Propionate (Fluticasone Propionate Nasal [place]) 16 Gm [place].susp, 2 SPRAY NS DAILY for CONGESTION for 30 Days, #1 Prescribed by: KAROLINE BUSTOS MD on 10/04/19 1321 Last Action: HELD on 03/31/20932 by WILMA TRUJILLO MD Hydralazine Hcl (Hydralazine Hcl) 50 Mg Tablet, 1 TAB PO BID for HTN, #180 Ref 3 (Reported) Entered as Reported by: CELINA PARIS on 03/27/201400 Last Action: Continued on 03/31/20932 by WILMA TRUJILLO MD Isosorbide Mononitrate (Isosorbide Mononitrate Er) 60 Mg Tab.er.24h, 60 MG PO DAILY for LOWER BP, (Reported) Entered as Reported by: Jaimie Ngo on 10/29/19 0115 Last Action: Converted on 03/31/20932 by WILMA TRUJILLO MD Labetalol Hcl (Labetalol Hcl) 100 Mg Tablet, 1 TAB PO BID for HTN, #60 Ref 5 (Reported) Entered as Reported by: CELINA PARIS on 03/27/201401 Naproxen (Naproxen) 375 Mg Tablet, 1 TAB PO BID for pain for 30 Days, #60 Ref 0 (Reported) with food Entered as Reported by: CELINA PARIS on 03/27/20 140 Last Action: HELD on 03/31/20932 by WILMA TRUJILLO MD Omeprazole (Omeprazole) 20 Mg Capsule.dr, 1 CAP PO DAILY for GERD/ULCERS, #30 Ref 5 (Reported) Entered as Reported by: CELINA PARIS on 03/27/201402 Last Action: Converted on 03/31/20932 by WILMA TRUJILLO MD Polyethylene Glycol 3350 (Polyethylene Glycol 3350) 17 Gm Powd.pack, 17 GM PO QHS for STOOLS for 30 Days, #30 Prescribed by: KAROLINE BUSTOS MD on 11/03/19 1012 Last Action: Continued on 03/31/20932 by WILMA TRUJILLO MD Spironolactone (Aldactone) 25 Mg Tablet, 25 MG PO BID for BLOOD PRESSURE for 30 Days, #60 Prescribed by: KAROLINE BUSTOS MD on 11/03/19 1012 Last Action: Continued on 03/31/20932 by WILMA TRUJILLO MD Vit B Cmplx 3/FA/Vit C/Biotin (Adoption Social Worker-Onur Rx Tablet) 1 Each Tablet, 1 EACH PO DAILY for supplemental vitamin b, (Reported) Entered as Reported by: CELINA PARIS on 03/27/20 1407 Last Action: HELD on 03/31/20932 by WILMA TRUJILLO MD Scheduled PRN Hydrocodone/[place] 5-325 ([place] 5-325 Tablet) 1 Each Tablet, 1 TAB PO PRN Q4HRS PRN for PAIN, #20 Ref 0 (Reported) Entered as Reported by: JENNIFER JETT RN on 03/30/20 1525 Last Action: Continued on 03/31/20932 by WILMA TRUJILLO MD Miscellaneous Medications Albuterol Sulfate (Albuterol Sulfate Hfa Inhaler) 8.5 Gm Hfa.aer.ad, 8.5 GM IH, (Reported) Entered as Reported by: CELINA PARIS on 07/06/13 0933 Discontinued Medications Fluticasone/Umeclidin/Vilanter (Trelegy Ellipta 100-62.5-25) 1 Each Blst.w.dev, 1 EACH IH BID for copd, (Reported) Entered as Reported by: DASH CABAN on 07/27/18 2218 Sucralfate (Carafate) 1 Gm Tablet, 1 TAB PO QID for 14 Days, #56 Ref 0 Prescribed by: ASHLEY DA SILVA D.O. on 02/22/20 0243 Last Action: HELD on 03/31/20932 by WILMA TRUJILLO MD Justicifation of Admission Dx: Justifications for Admission: Justification of Admission Dx: Yes Acute Renal Failure: Serum Cr > 4mg/dL WILMA TRUJILLO MD Mar 31, 2020 15:04
--- NOTE | 2020-03-31 15:30 | PDOC2 ---
CONSULT Date of Consult Date of Consult DATE: 03/31/20 TIME: 15:25 Reason for Consult Reason for Consult: HIGH K AND ESRD Referring Physician Referring Physician: CASSANDRA Identification/Chief Complaint Chief Complaint CANT SWALLOW AND SOB Source Source: Chart review, Patient History of Present Illness Reason for Visit: THIS IS A 64 YR OLD WITH ESRD. HAD AN AV ACCESS PLACED IN HER LEFT UE THIS AM AND WAS DISCHARGED. POST OP ATE AND BACK TO BASELINE AT D/C BUT AFTER SHE WENT HOME SHE HAD SOB, STRIDOR AND HOARSENESS. LABS C/W ESRD AND HYPERKALEMIA. SHE HAS A RIGHT IJ TDC TO FACILITATE HER HD. ESRD DUE TO DM II AND HTN Past Medical History Cardiovascular: HTN, Hyperlipidemia, Other Pulmonary: COPD, Other CENTRAL NERVOUS SYSTEM: Migraine GI: Constipation, Diverticulosis, GERD, GI bleed, Peptic Ulcer disease Heme/Onc: No pertinent hx Hepatobiliary: Hep A/B/C Psych: Anxiety, Depression Rheumatologic: No pertinent hx Infectious disease: No pertinent hx Renal/: Chronic renal insuff Endocrine: Diabetes, Hyperparathyroidism Past Surgical History Past Surgical History S/P L ARM AVF Past Surgical History: , Hernia Repair, Colon Resection, Other (AV fistula placement) Family History Family History: Diabetes, Hypertension Social History 1 pack per day ALCOHOL: none Drugs: None Lives: with Family Current Problem List Problem List Problems Medical Problems: (1) Postextubation stridor Status: Acute Current Medications Current Medications Current Medications Epinephrine (S2 Racepinephrine) 0.5 ml 1X ONCE NEB Last administered on 03/31/20at 02:25; Start 03/31/20 at 02:30; Stop 03/31/20 at 02:31; Status DC Dexamethasone Sodium Phosphate (Decadron) 10 mg 1X ONCE IVP Last administered on 03/31/20at 03:04; Start 03/31/20 at 02:30; Stop 03/31/20 at 02:31; Status DC Albuterol/ Ipratropium (Duoneb) 3 ml RTQID NEB Last administered on 03/31/20at 08:51; Start 03/31/20 at 08:45 Epinephrine (S2 Racepinephrine) 0.5 ml PRN Q3HRS PRN NEB SHORTNESS OF BREATH; Start 03/31/20 at 09:30 Aspirin (Ecotrin) 81 mg DAILYWBKFT PO Last administered on 03/31/20at 14:43; Start 03/31/20 at 10:00 Clopidogrel Bisulfate (Plavix) 75 mg DAILY PO Last administered on 03/31/20at 14:43; Start 03/31/20 at 10:00 Diltiazem HCl (Cardizem 24hr Cd) 240 mg DAILY PO Last administered on 03/31/20at 14:44; Start 03/31/20 at 10:00 Hydralazine HCl (Apresoline) 50 mg BID PO Last administered on 03/31/20at 14:43; Start 03/31/20 at 10:00 Acetaminophen/ Hydrocodone Bitart (Lortab 5/325) 1 tab PRN Q4HRS PRN PO MODERATE TO SEVERE PAIN; Start 03/31/20 at 09:30 Polyethylene Glycol (miraLAX PACKET) 17 gm QHS PO ; Start 03/31/20 at 21:00 Spironolactone (Aldactone) 25 mg BID PO Last administered on 03/31/20at 14:43; Start 03/31/20 at 10:00 Isosorbide Mononitrate (Imdur) 60 mg DAILY PO ; Start 03/31/20 at 10:00 Pantoprazole Sodium (Protonix) 40 mg DAILYAC PO Last administered on 03/31/20at 14:44; Start 03/31/20 at 11:30 Ondansetron HCl (Zofran) 4 mg PRN Q6HRS PRN IVP NAUSEA/VOMITING; Start 03/31/20 at 09:45 Zolpidem Tartrate (Ambien) 5 mg PRN QHS PRN PO INSOMNIA, MAY REPEAT IN 1HR; Start 03/31/20 at 09:45 Acetaminophen (Tylenol) 650 mg PRN Q6HRS PRN PO Headaches, Temp > 101.5F; Start 03/31/20 at 09:45 Magnesium Hydroxide (Milk Of Magnesia) 2,400 mg PRN Q12HR PRN PO CONSTIPATION; Start 03/31/20 at 09:45 Bisacodyl (Dulcolax Supp) 10 mg PRN DAILY PRN [place] CONSTIPATION; Start 03/31/20 at 09:45 Heparin Sodium (Porcine) (Heparin Sodium) 5,000 unit Q8HRS SQ Last administered on 03/31/20at 14:46; Start 03/31/20 at 11:00 Sodium Chloride 1,000 ml @ 1,000 mls/hr Q1H PRN IV hypotension; Start 03/31/20 at 09:45; Stop 03/31/20 at 15:44 Sodium Chloride 1,000 ml @ 400 mls/hr Q2H30M PRN IV PATENCY; Start 03/31/20 at 09:45; Stop 03/31/20 at 21:44 Info (PHARMACY MONITORING -- do not chart) 1 each PRN DAILY PRN MC SEE COMMENTS; Start 03/31/20 at 13:00; Status UNV Info (PHARMACY MONITORING -- do not chart) 1 each PRN DAILY PRN MC SEE COMMENTS; Start 03/31/20 at 13:00 Active Scripts Active Polyethylene Glycol 3350 17 Gm Powd.pack 17 Gm PO QHS 30 Days Aspirin Ec (Aspirin) 81 Mg Tablet.dr 81 Mg PO DAILYWBKFT 30 Days Aldactone (Spironolactone) 25 Mg Tablet 25 Mg PO BID 30 Days Diltiazem 24Hr Cd (Diltiazem HCl) 240 Mg Cap.er.24h 240 Mg PO DAILY 30 Days Fluticasone Propionate Nasal [place] (Fluticasone Propionate) 16 Gm [place].susp 2 [place] NS DAILY 30 Days Reported [place] 5-325 Tablet (Acetaminophen/Hydrocodone Bitart) 1 Each Tablet 1 Tab PO PRN Q4HRS PRN Naproxen 375 Mg Tablet 1 Tab PO BID 30 Days with food [facility] Rx Tablet (Vit B Cmplx 3/FA/Vit C/Biotin) 1 Each Tablet 1 Each PO DAILY Clopidogrel (Clopidogrel Bisulfate) 75 Mg Tablet 75 Mg PO DAILY Omeprazole 20 Mg Capsule. 1 Cap PO DAILY Labetalol Hcl 100 Mg Tablet 1 Tab PO BID Hydralazine Hcl 50 Mg Tablet 1 Tab PO BID Isosorbide Mononitrate Er (Isosorbide Mononitrate) 60 Mg Tab.er.24h 60 Mg PO DAILY Albuterol Sulfate Hfa Inhaler (Albuterol Sulfate) 8.5 Gm Hfa.aer.ad 8.5 Gm IH Allergies Allergies: Coded Allergies: Iodinated Contrast Media (Verified Adverse Reaction, Intermediate, Nausea and Vomiting, 03/30/20) ROS General: YES: Fatigue, Malaise PSYCHOLOGICAL ROS: YES: Anxiety Eyes: Yes Decreased vision HEENT: YES: Nasal congestion, Sore Throat Respiratory: YES: Cough, Shortness of breath Genitourinary: YES Other (ANURIA) Musculoskeletal: Yes Muscular Weakness Neurological: Yes Weakness Skin: Yes Dry Skin Physical Exam Physical Exam AV ACCESS HAS GOOD BRUIT General: Alert, Oriented X3, Cooperative, No acute distress HEENT: Atraumatic, PERRLA Lungs: Clear to auscultation Heart: Regular rate Abdomen: Normal bowel sounds, Soft, No hepatosplenomegaly Skin: No breakdown Neuro: Normal speech, Cranial nerves 3-12 NL Psych/Mental Status: Mental status NL, Mood NL MUSCULOSKELETAL: No joint tenderness, No deformity Vitals VITALS Vital Signs Date Time Temp Pulse Resp B/P (MAP) Pulse Ox O2 Delivery O2 Flow Rate FiO2 03/31/20 14:44 101 151/80 03/31/20 14:00 98.6 18 92 Room Air 98.6 Labs Labs Laboratory Tests Test 03/31/20 03:00 03/31/20 07:21 White Blood Count 9.6 x10^3/uL (4.0-11.0) Red Blood Count 4.34 x10^6/uL (3.50-5.40) Hemoglobin 11.4 g/dL (12.0-15.5) Hematocrit 35.4 % (36.0-47.0) Mean Corpuscular Volume 82 fL (79-100) Mean Corpuscular Hemoglobin 26 pg (25-35) Mean Corpuscular Hemoglobin Concent 32 g/dL (31-37) Red Cell Distribution Width 17.4 % (11.5-14.5) Platelet Count 194 x10^3/uL (140-400) Neutrophils (%) (Auto) 87 % (31-73) Lymphocytes (%) (Auto) 10 % (24-48) Monocytes (%) (Auto) 3 % (0-9) Eosinophils (%) (Auto) 0 % (0-3) Basophils (%) (Auto) 1 % (0-3) Neutrophils # (Auto) 8.3 x10^3/uL (1.8-7.7) Lymphocytes # (Auto) 1.0 x10^3/uL (1.0-4.8) Monocytes # (Auto) 0.3 x10^3/uL (0.0-1.1) Eosinophils # (Auto) 0.0 x10^3/uL (0.0-0.7) Basophils # (Auto) 0.1 x10^3/uL (0.0-0.2) Segmented Neutrophils % 89 % (35-66) Band Neutrophils % 2 % (0-9) Lymphocytes % 9 % (24-48) Platelet Estimate Adequate (ADEQUATE) Anisocytosis Slight Sodium Level 137 mmol/L (136-145) Potassium Level 6.2 mmol/L (3.5-5.1) Chloride Level 101 mmol/L (98-107) Carbon Dioxide Level 23 mmol/L (21-32) Anion Gap 13 (6-14) Blood Urea Nitrogen 51 mg/dL (7-20) Creatinine 6.9 mg/dL (0.6-1.0) Estimated GFR (Cockcroft-Gault) 7.3 Glucose Level 178 mg/dL (70-99) Calcium Level 8.6 mg/dL (8.5-10.1) Glucose (Fingerstick) 163 mg/dL (70-99) Laboratory Tests Test 03/31/20 03:00 03/31/20 07:21 White Blood Count 9.6 x10^3/uL (4.0-11.0) Red Blood Count 4.34 x10^6/uL (3.50-5.40) Hemoglobin 11.4 g/dL (12.0-15.5) Hematocrit 35.4 % (36.0-47.0) Mean Corpuscular Volume 82 fL (79-100) Mean Corpuscular Hemoglobin 26 pg (25-35) Mean Corpuscular Hemoglobin Concent 32 g/dL (31-37) Red Cell Distribution Width 17.4 % (11.5-14.5) Platelet Count 194 x10^3/uL (140-400) Neutrophils (%) (Auto) 87 % (31-73) Lymphocytes (%) (Auto) 10 % (24-48) Monocytes (%) (Auto) 3 % (0-9) Eosinophils (%) (Auto) 0 % (0-3) Basophils (%) (Auto) 1 % (0-3) Neutrophils # (Auto) 8.3 x10^3/uL (1.8-7.7) Lymphocytes # (Auto) 1.0 x10^3/uL (1.0-4.8) Monocytes # (Auto) 0.3 x10^3/uL (0.0-1.1) Eosinophils # (Auto) 0.0 x10^3/uL (0.0-0.7) Basophils # (Auto) 0.1 x10^3/uL (0.0-0.2) Segmented Neutrophils % 89 % (35-66) Band Neutrophils % 2 % (0-9) Lymphocytes % 9 % (24-48) Platelet Estimate Adequate (ADEQUATE) Anisocytosis Slight Sodium Level 137 mmol/L (136-145) Potassium Level 6.2 mmol/L (3.5-5.1) Chloride Level 101 mmol/L (98-107) Carbon Dioxide Level 23 mmol/L (21-32) Anion Gap 13 (6-14) Blood Urea Nitrogen 51 mg/dL (7-20) Creatinine 6.9 mg/dL (0.6-1.0) Estimated GFR (Cockcroft-Gault) 7.3 Glucose Level 178 mg/dL (70-99) Calcium Level 8.6 mg/dL (8.5-10.1) Glucose (Fingerstick) 163 mg/dL (70-99) Assessment/Plan Assessment/Plan IMP HYPERKALMIA S/P LEFT ARM AV ACCESS-PATENT. POST EXTUBATION STRIDOR ANEMIA ESRD DM II HTN PLAN HD TODAY UF TO DW LOW K DIALYSATE WILL FOLLOW TYRONE DONNELLY MD Mar 31, 2020 15:30
[2020-03-31] MEDS ORDERED: ALBUTEROL SULFATE 2.5 MG/3 ML NEBU. NEB PRN (17:15)
--- NOTE | 2020-03-31 19:09 | NUR ---
Discharge Note: HERRERA BERKOWITZ MCLEAN Discharge instructions and discharge home medications reviewed with Patient and a copy given. All questions have been answered and understanding verbalized. The following instructions and handouts were given: Stridor, Sore Throat Discontinued lines and drains:IV Removed, Tip intact, bleeding stopped, bandage applied intact. Patient discharged to home with selfcare via wheelchair to [facility]
[2020-03-31] MEDS ORDERED: POLYETHYLENE GLYCOL 3350 17 GM PACKET. PO SCH (21:00)
== END 2020-03-31 19:45 | disposition home or self-care (01) ==
LOC: ER 01:59 → 2 NORTH 05:05
PROVIDERS: ADMIT Internal Medicine; ATTEND Internal Medicine
DX: R06.1 Stridor (principal); Z20.828 Contact with and (suspected) exposure to other viral communicable diseases; I12.0 Hypertensive chronic kidney disease with stage 5 chronic kidney disease or end stage renal disease; N18.6 End stage renal disease; E78.5 Hyperlipidemia, unspecified; J44.9 Chronic obstructive pulmonary disease, unspecified; K59.00 Constipation, unspecified; K57.90 Diverticulosis of intestine, part unspecified, without perforation or abscess without bleeding; F17.210 Nicotine dependence, cigarettes, uncomplicated; F41.9 Anxiety disorder, unspecified; F32.9 Major depressive disorder, single episode, unspecified; G47.30 Sleep apnea, unspecified; E87.5 Hyperkalemia; E21.3 Hyperparathyroidism, unspecified; E78.00 Pure hypercholesterolemia, unspecified; D63.1 Anemia in chronic kidney disease; E11.22 Type 2 diabetes mellitus with diabetic chronic kidney disease; Z98.891 History of uterine scar from previous surgery; Z99.2 Dependence on renal dialysis; Z98.890 Other specified postprocedural states; Z87.11 Personal history of peptic ulcer disease; Z79.82 Long term (current) use of aspirin; Z86.19 Personal history of other infectious and parasitic diseases
CPT/HCPCS: 36415; 80048; 82962; 85007; 85025; 94640; 96372; 96374; 99284; G0378; J1100; J1644; G0379

== ENCOUNTER 2020-05-22 16:10 | Emergency (ER) | payer MEDICAID ==
[~2020-05-22] VITALS: Ht 152.4 cm; Wt 90.0 kg
[~2020-05-22 16:10] MED LIST changes: -ISOS60TA2 PO; +ISOS60TA55 PO
--- NOTE | 2020-05-22 16:37 | ED.ADGEN ---
Past Medical History Past Medical History: Arthritis, Asthma, Diabetes-Type II, High Cholesterol, Hypertension, Renal Failure (dialysis T, TH, Sat) Additional Past Medical Histor: sleep apnea; ulcers; GI bleed, Stage 5 CKD, Hepatitis B, enlarged heart Past Surgical History: , Other Additional Past Surgical Histo: hiatal hernia; R chest diaylsis catheter, LEFT ARM AV FISTULA MAR 30, 2020 Past Surgical History carpal tunnel bilat Smoking Status: Current Every Day Smoker Alcohol Use: None Drug Use: None General Adult EDM: Chief Complaint: SYNCOPE HPI: HPI: Patient is a 64 year old AA female who presents emergency department via EMS today with reports of a syncopal episode after having dialysis today. Patient states she often becomes dizzy after having dialysis. Today when she got up to leave she became dizzy and lost her vision. Patient does not remember falling on the floor however EMS reports that the patient did fall onto the floor at the dialysis center. The patient denies any headache, vision changes, numbness, tingling, or weakness at this time. She denies any dizziness, chest pain, palpitations, body aches, fatigue, fever, nasal congestion, nausea, vomiting, diarrhea, or abdominal pain. Patient states that she does feel short of breath but that is nothing new for her she also has a chronic cough but denies any increase in cough or increased difficulty breathing. Initially the patient did complain of some upper back maddie,n however at this time she currently denies any pain. Review of Systems: Review of Systems: Complete ROS is negative unless otherwise noted in HPI. Allergies: Allergies: Allergies Coded Allergies Type Severity Reaction Last Updated Verified Iodinated Contrast Media Adverse Reaction Intermediate Nausea and Vomiting 03/30/20 Yes Physical Exam: PE: See Above Constitutional: Well developed, well nourished, no acute distress, non-toxic appearance. [] HENT: Normocephalic, atraumatic, bilateral external ears normal, oropharynx moist, no oral exudates, nose normal. [] Eyes: PERRLA, EOMI, conjunctiva normal, no discharge. [] Neck: Normal range of motion, no tenderness, supple, no stridor. [] Cardiovascular:Heart rate regular rhythm Lungs & Thorax: Respirations even and unlabored, no retractions, no respiratory distress Abdomen: Bowel sounds normal, soft, no tenderness, no masses, no pulsatile masses. [] Skin: Warm, dry, no erythema, no rash. [] Back: No tenderness, no step-off, no obvious deformity Extremities: Left arm AV fistula: Positive bruit, positive thrill; extremities x4: No tenderness, no cyanosis, no clubbing, ROM intact, no edema. [] Neurologic: Alert and oriented X 3, normal motor function, normal sensory function, no focal deficits noted. [] Psychologic: Affect normal, judgement normal, mood normal. [] Current Patient Data: Labs: Laboratory Tests Test 05/22/20 16:45 White Blood Count 8.4 x10^3/uL (4.0-11.0) Red Blood Count 4.28 x10^6/uL (3.50-5.40) Hemoglobin 11.4 g/dL (12.0-15.5) L Hematocrit 35.6 % (36.0-47.0) L Mean Corpuscular Volume 83 fL (79-100) Mean Corpuscular Hemoglobin 27 pg (25-35) Mean Corpuscular Hemoglobin Concent 32 g/dL (31-37) Red Cell Distribution Width 15.8 % (11.5-14.5) H Platelet Count 253 x10^3/uL (140-400) Neutrophils (%) (Auto) 69 % (31-73) Lymphocytes (%) (Auto) 16 % (24-48) L Monocytes (%) (Auto) 10 % (0-9) H Eosinophils (%) (Auto) 3 % (0-3) Basophils (%) (Auto) 1 % (0-3) Neutrophils # (Auto) 5.8 x10^3/uL (1.8-7.7) Lymphocytes # (Auto) 1.3 x10^3/uL (1.0-4.8) Monocytes # (Auto) 0.9 x10^3/uL (0.0-1.1) Eosinophils # (Auto) 0.3 x10^3/uL (0.0-0.7) Basophils # (Auto) 0.1 x10^3/uL (0.0-0.2) Sodium Level 136 mmol/L (136-145) Potassium Level 4.1 mmol/L (3.5-5.1) Chloride Level 98 mmol/L (98-107) Carbon Dioxide Level 27 mmol/L (21-32) Anion Gap 11 (6-14) Blood Urea Nitrogen 22 mg/dL (7-20) H Creatinine 3.9 mg/dL (0.6-1.0) H Estimated GFR (Cockcroft-Gault) 14.1 BUN/Creatinine Ratio 6 (6-20) Glucose Level 106 mg/dL (70-99) H Calcium Level 9.1 mg/dL (8.5-10.1) Magnesium Level 1.9 mg/dL (1.8-2.4) Total Bilirubin 0.8 mg/dL (0.2-1.0) Aspartate Amino Transferase (AST) 14 U/L (15-37) L Alanine Aminotransferase (ALT) 27 U/L (14-59) Alkaline Phosphatase 72 U/L (46-116) Troponin I Quantitative < 0.017 ng/mL (0.000-0.055) Total Protein 7.8 g/dL (6.4-8.2) Albumin 3.8 g/dL (3.4-5.0) Albumin/Globulin Ratio 1.0 (1.0-1.7) Laboratory Tests 05/22/20 16:45 Laboratory Tests 05/22/20 16:45 Vital Signs: Vital Signs Date Time Temp Pulse Resp B/P (MAP) Pulse Ox O2 Delivery O2 Flow Rate FiO2 05/22/20 18:00 70 146/78 (100) 100 Room Air 05/22/20 17:15 98.3 18 98.3 EKG: EK-sinus rhythm with prolonged IN interval, rate 67, no STEMI, read by Dr. Best [] Heart Score: Risk Factors: Risk Factors: DM, Current or recent (<one month) smoker, HTN, HLP, family history of CAD, obesity. Risk Scores: Score 0 - 3: 2.5% MACE over next 6 weeks - Discharge Home Score 4 - 6: 20.3% MACE over next 6 weeks - Admit for Clinical Observation Score 7 - 10: 72.7% MACE over next 6 weeks - Early Invasive Strategies Radiology/Procedures: Radiology/Procedures: PROCEDURE: CT HEAD AND CERVICAL SPINE WO EXAM: CT Head without IV contrast INDICATION: Reason: syncopal episode / Spl. Instructions: / History: TECHNIQUE: Multi-detector row CT images were obtained of the head without the use of IV contrast. All CT scans performed at this facility utilize dose optimization techniques as appropriate to the exam, including the following: Automated exposure control and adjustment of the mA and/or KV according to patient size (this includes techniques or standardized protocols for targeted exams where dose is indication/reason for exam). COMPARISON: Noncontrast head CT of 02/21/2020 FINDINGS: BRAIN PARENCHYMA: No evidence of acute intraparenchymal hemorrhage or infarct. 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 There is mild generalized parenchymal volume loss. VENTRICLES & EXTRA-AXIAL SPACES: Ventricles are within normal limits. Basilar cisterns are patent. No pathologic extra-axial fluid collection or mass. ORBITS: Orbital contents are unremarkable. SINUSES: Visualized paranasal sinuses and mastoid air cells are clear. OSSEOUS & SOFT TISSUES: Calvarium and skull base are intact. IMPRESSION: No acute intracranial pathology. EXAM: CT Cervical Spine without IV contrast INDICATION: Reason: syncopal episode / Spl. Instructions: / History: TECHNIQUE: Multi-detector row CT images were obtained through the cervical spine without the use of IV contrast. Post-processing sagittal and coronal reconstructed images were obtained for interpretation. All CT scans performed at this facility utilize dose optimization techniques as appropriate to the exam, including the following: Automated exposure control and adjustment of the mA and/or KV according to patient size (this includes techniques or standardized protocols for targeted exams where dose is indication/reason for exam). COMPARISON: None FINDINGS: CRANIOCERVICAL JUNCTION: Unremarkable. ALIGNMENT: Alignment is within normal limits. OSSEOUS: No evidence of fracture or bone destruction. DISC SPACES: Mild multilevel disc degenerative change. FACET JOINTS: Unremarkable. SPINAL CANAL: Unremarkable. NEUROFORAMINA: Unremarkable. SOFT TISSUES: Right jugular approach central venous catheter is present.. IMPRESSION: No acute findings in the cervical spine. [] Course & Med Decision Making: Course & Med Decision Making Pertinent Labs and Imaging studies reviewed. (See chart for details) 64-year-old female presented for evaluation after syncopal episode that happened after she received dialysis today CT head and neck were negative for any acute findings. CBC revealed mild anemia with hemoglobin 11.4, hematocrit of 35.6; CMP revealed BUN of 22 creatinine of 3.9, glucose is 106 otherwise unremarkable, troponin was not elevated. Orthostatic blood pressures were unremarkable. The patient was able to tolerate ambulation with standby assist from the nurse, she reported feeling better. EKG revealed no acute findings, patient's vital signs are stable throughout her emergency department visit. I encouraged the patient to notify dialysis staff if she is feeling dizzy or lightheaded after her treatments. I encouraged her to follow-up with her primary care doctor in the next 1 to 2 days, return to the ER if symptoms worsen. Patient verbalized an understanding of home care, medications, follow-up, and return to ED instructions and was in agreement with the plan of care. [] Dragon Disclaimer: Dragon Disclaimer: This electronic medical record was generated, in whole or in part, using a voice recognition dictation system. Departure Departure Impression: Primary Impression: Episode of syncope Disposition: 01 DC HOME SELF CARE/HOMELESS Condition: STABLE Referrals: RICKY PORTILLO MD (PCP) Patient Instructions: Syncope, [id number] Additional Instructions: Be sure to notify the dialysis center of any dizziness experienced after dialysis. Follow up with your primary care doctor in 1-2 days, return to the ER if symptoms worsen. Problem Qualifiers Primary Impression: Episode of syncope Syncope type: unspecified Qualified Codes: R55 - Syncope and collapse LIYA FRANCISCO APRN May 22, 2020 16:37
[2020-05-22 17:00] LABS: BASO # 0.1 x10^3/uL (0.0-0.2); BASO % 1 % (0-3); EOS # 0.3 x10^3/uL (0.0-0.7); EOS % 3 % (0-3); HEMATOCRIT 35.6 % (36.0-47.0); HEMOGLOBIN 11.4 g/dL (12.0-15.5); LYMPH # 1.3 x10^3/uL (1.0-4.8); LYMPH % 16 % (24-48); MEAN CORPUSCULAR HEMOGLOBIN 27 pg (25-35); MEAN CORPUSCULAR HGB CONC 32 g/dL (31-37); MEAN CORPUSCULAR VOLUME 83 fL (79-100); MONO # 0.9 x10^3/uL (0.0-1.1); MONO % 10 % (0-9); NEUT # 5.8 x10^3/uL (1.8-7.7); NEUT % 69 % (31-73); PLATELET COUNT 253 x10^3/uL (140-400); RED BLOOD COUNT 4.28 x10^6/uL (3.50-5.40); RED CELL DISTRIBUTION WIDTH 15.8 % (11.5-14.5); WHITE BLOOD COUNT 8.4 x10^3/uL (4.0-11.0)
[2020-05-22 17:13] LABS: CALCIUM 9.1 mg/dL (8.5-10.1); CREATININE 3.9 mg/dL (0.6-1.0); GFR 14.1; POTASSIUM 4.1 mmol/L (3.5-5.1)
[2020-05-22 17:18] LABS: ALBUMIN 3.8 g/dL (3.4-5.0); MAGNESIUM 1.9 mg/dL (1.8-2.4); TOTAL BILIRUBIN 0.8 mg/dL (0.2-1.0); TOTAL PROTEIN 7.8 g/dL (6.4-8.2)
--- NOTE | 2020-05-22 17:27 | RAD ---
EXAM: CT Head without IV contrast INDICATION: Reason: syncopal episode / Spl. Instructions: / History: TECHNIQUE: Multi-detector row CT images were obtained of the head without the use of IV contrast. All CT scans performed at this facility utilize dose optimization techniques as appropriate to the exam, including the following: Automated exposure control and adjustment of the mA and/or KV according to patient size (this includes techniques or standardized protocols for targeted exams where dose is ind ication/reason for exam). COMPARISON: Noncontrast head CT of 02/21/2020 FINDINGS: BRAIN PARENCHYMA: No evidence of acute intraparenchymal hemorrhage or infarct. Compartmental density compatible chronic ischemic microvascular change is present along with chronic infarct in the left oc cipital lobe. There is mild generalized parenchymal volume loss. VENTRICLES & EXTRA-AXIAL SPACES: Ventricles are within normal limits. Basilar cisterns are patent. N o pathologic extra-axial fluid collection or mass. ORBITS: Orbital contents are unremarkable. SINUSES: Visualized paranasal sinuses and mastoid air cells are clear. OSSEOUS & SOFT TISSUES: Calvarium and skull base are intact. IMPRESSION: No acute intracranial pathology. EXAM: CT Cervical Spine without IV contrast INDICATION: Reason: syncopal episode / Spl. Instructions: / History: TECHNIQUE: Multi-detector row CT images were obtained through the cervical spine without the use of IV contrast. Post-processing sagittal and coronal reconstructed images were obtained for interpretati on. All CT scans performed at this facility utilize dose optimization techniques as appropriate to th e exam, including the following: Automated exposure control and adjustment of the mA and/or KV accord ing to patient size (this includes techniques or standardized protocols for targeted exams where dose is indication/reason for exam). COMPARISON: None FINDINGS: CRANIOCERVICAL JUNCTION: Unremarkable. ALIGNMENT: Alignment is within normal limits. OSSEOUS: No evidence of fracture or bone destruction. DISC SPACES: Mild multilevel disc degenerative change. FACET JOINTS: Unremarkable. SPINAL CANAL: Unremarkable. NEUROFORAMINA: Unremarkable. SOFT TISSUES: Right jugular approach central venous catheter is present.. IMPRESSION: No acute findings in the cervical spine. Electronically signed by: Ilan Burgos MD (05/22/2020 5:24 PM) [id number]
[2020-05-22 18:00] VITALS: BP 146/78
== END 2020-05-22 18:22 | disposition home or self-care (01) ==
LOC: ER 16:10
DX: R55 Syncope and collapse (principal); R42 Dizziness and giddiness; R06.02 Shortness of breath; M19.90 Unspecified osteoarthritis, unspecified site; J45.909 Unspecified asthma, uncomplicated; I13.10 Hypertensive heart and chronic kidney disease without heart failure, with stage 1 through stage 4 chronic kidney disease, or unspecified chronic kidney disease; E11.22 Type 2 diabetes mellitus with diabetic chronic kidney disease; N18.9 Chronic kidney disease, unspecified; F17.200 Nicotine dependence, unspecified, uncomplicated; Z98.890 Other specified postprocedural states; Z91.041 Radiographic dye allergy status
CPT/HCPCS: 36415; 70450; 72125; 80053; 83735; 84484; 85025; 99285

== ENCOUNTER 2020-11-23 09:51 | Day surgery (SDC) | payer MEDICAID ==
[~2020-11-23] VITALS: Ht 152.4 cm; Wt 92.0 kg
[~2020-11-23 09:51] MED LIST changes: +ALPR1TAB6 PO; +AMOX1TAB61 PO; +ATOR20TA58 PO; +CIPROFLOXACIN 0.3% OPHTH SOLUTION 5ML BOTTLE. OS ONE; +DOXY100T PO; +ISOS30TA68 PO; +LABE200T4 PO; +LIDOCAINE 2% JELLY 6ML IN APPLICATOR. OS ONE; -POLY17PO28 PO; +POLY17PO52 PO; +PROPARACAINE 0.5% OPHTH SOLUTION 15ML BOTTLE. OS ONE; +SEVE800T8 PO; +SPIR25TA5 PO
[2020-11-23 10:13] VITALS: BP 137/65
[2020-11-23] MEDS: PHENYLEPHRINE 10% OPHTH SOLUTION 5ML BOTTLE. OS SCH ×3 (10:23→10:33)
[2020-11-23] MEDS: CYCLOPENTOLATE 1% OPHTH SOLUTION 2ML BOTTLE. OS SCH ×3 (10:24→10:33)
[2020-11-23] MEDS ORDERED: IV NORMAL SALINE 1000ML BAG 1,000 ML IV ONE (10:30)
[2020-11-23] MEDS ORDERED: LIDOCAINE 1%/PHENYLEPH 1.5% PF OPHTH 1 ML VIAL. ONE (10:33)
[2020-11-23] MEDS ORDERED: NEO/POLYMYX/DEXAMETH OPHTH OINTMENT 3.5GM TUBE. ONE (10:33)
[2020-11-23] MEDS ORDERED: CHONDROIT-SOD-HYALURONATE KIT. ONE (10:33)
[2020-11-23] MEDS ORDERED: CHONDROITIN-SOD-HYALURONATE 0.5 ML DISP.SYRIN. ONE (10:34)
[2020-11-23] MEDS ORDERED: acetaZOLAMIDE 250 MG TABLET. PO ONE (12:30)
[2020-11-23 12:56] VITALS: BP 164/86
[2020-11-23] MEDS ORDERED: fentaNYL PF VIAL 100 MCG/2 ML VIAL ONE (13:05)
--- NOTE | 2020-11-23 13:12 | OP ---
DATE OF SURGERY: 11/23/2020 PREOPERATIVE DIAGNOSES: 1. Incipient advanced cortical cataract of the left eye. 2. Open angle glaucoma of the left eye. PROCEDURES: 1. Cataract extraction with posterior chamber intraocular lens implantation of the left eye with capsule staining due to the advanced cortical peripheral cataract and posterior chamber intraocular lens implantation. 2. [place] dual blade goniotomy of the left eye. DESCRIPTION OF PROCEDURE: The left eye was prepped with Betadine in the usual sterile fashion and draped. A paracentesis was performed followed by instillation of preservative-free phenylephrine admixed with lidocaine and balanced salt solution. Air was injected in the anterior chamber and Trypan blue was used to stain the anterior capsule, which peripherally could not be adequately visualized. The viscoelastic was used to evacuate the air and a temporal clear corneal incision was made. The head and microscope were repositioned to visualize the anterior chamber angle and the [place] dual blade was used to remove approximately clock hours of the inferior nasal trabecular meshwork. The head and microscope were repositioned and a capsulorrhexis was performed, followed by hydrodissection. The phacoemulsification handpiece was used to remove the nucleus in a modified stop and chop fashion. The I/A handpiece was used to remove the cortex. Viscoelastic was then injected in the capsular bag, and an Cj model [id number] with a power of 20.0 diopters was placed into the capsular bag. Balanced salt solution was used to hydrate the corneal wounds and the viscoelastic evacuated with the I/A handpiece. Maxitrol was placed on the eye and the eye shielded and the patient was sent to the recovery room uneventfully and she was to receive 1000 mg of oral Diamox. She was given postoperative instructions and asked to follow up within 4 days or call sooner for any questions or concerns. [facility] – [place] DR: Cherrie TID: [id number]
[2020-11-23] MEDS ORDERED: PRED5DRO20 OD (13:15)
== END 2020-11-23 13:31 | disposition home or self-care (01) ==
LOC: SURG 09:51
PROVIDERS: ATTEND Ophthalmology
DX: E11.36 Type 2 diabetes mellitus with diabetic cataract (principal); H25.89 Other age-related cataract; I13.2 Hypertensive heart and chronic kidney disease with heart failure and with stage 5 chronic kidney disease, or end stage renal disease; I50.9 Heart failure, unspecified; N18.6 End stage renal disease; E11.22 Type 2 diabetes mellitus with diabetic chronic kidney disease; E78.00 Pure hypercholesterolemia, unspecified; J43.9 Emphysema, unspecified; K21.9 Gastro-esophageal reflux disease without esophagitis; E66.9 Obesity, unspecified; M19.90 Unspecified osteoarthritis, unspecified site; F41.9 Anxiety disorder, unspecified; F32.9 Major depressive disorder, single episode, unspecified; F17.210 Nicotine dependence, cigarettes, uncomplicated; Z99.2 Dependence on renal dialysis; Z79.899 Other long term (current) drug therapy; Z98.890 Other specified postprocedural states; Z79.82 Long term (current) use of aspirin; Z91.041 Radiographic dye allergy status
CPT/HCPCS: 65820; 66984; J0171; J0690; J1580; J3010; J3490; V2632

== ENCOUNTER 2020-11-30 10:32 | Day surgery (SDC) | payer MEDICAID ==
[~2020-11-30] VITALS: Ht 152.4 cm; Wt 92.0 kg
[~2020-11-30 10:32] MED LIST changes: +CIPROFLOXACIN 0.3% OPHTH SOLUTION 5ML BOTTLE. OD ONE; -CIPROFLOXACIN 0.3% OPHTH SOLUTION 5ML BOTTLE. OS ONE; +IV RINGERS,LACTATED 1000ML 1,000 ML IV SCH; +LIDOCAINE 2% JELLY 6ML IN APPLICATOR. OD ONE; -LIDOCAINE 2% JELLY 6ML IN APPLICATOR. OS ONE; +PRED5DRO20 OD; +PROPARACAINE 0.5% OPHTH SOLUTION 15ML BOTTLE. OD ONE; -PROPARACAINE 0.5% OPHTH SOLUTION 15ML BOTTLE. OS ONE
[2020-11-30 10:53] VITALS: BP 176/80
[2020-11-30] MEDS ORDERED: NEO/POLYMYX/DEXAMETH OPHTH OINTMENT 3.5GM TUBE. ONE (10:59)
[2020-11-30] MEDS ORDERED: CHONDROIT-SOD-HYALURONATE KIT. ONE (10:59)
[2020-11-30] MEDS ORDERED: CHONDROITIN-SOD-HYALURONATE 0.5 ML DISP.SYRIN. ONE (10:59)
[2020-11-30] MEDS ORDERED: LIDOCAINE 1%/PHENYLEPH 1.5% PF OPHTH 1 ML VIAL. ONE (10:59)
[2020-11-30] MEDS: CYCLOPENTOLATE 1% OPHTH SOLUTION 2ML BOTTLE. OD SCH ×3 (11:09→11:19)
[2020-11-30] MEDS: PHENYLEPHRINE 10% OPHTH SOLUTION 5ML BOTTLE. OD SCH ×3 (11:09→11:19)
[2020-11-30] MEDS ORDERED: acetaZOLAMIDE 250 MG TABLET. PO ONE (11:30)
[2020-11-30] MEDS ORDERED: LIDOCAINE 2% JELLY 6ML IN APPLICATOR. ONE (12:23)
[2020-11-30 12:56] VITALS: BP 180/89
--- NOTE | 2020-11-30 13:23 | OP ---
DATE OF SURGERY: 11/30/2020 PREOPERATIVE DIAGNOSES: 1. Open-angle glaucoma of the right eye. 2. Cataract of the right eye. PROCEDURES: 1. Goniotomy with [place] dual blade of the right eye. 2. Cataract extraction with posterior chamber intraocular lens implantation of the right eye. SURGEON: Nicolas Cannon MD ANESTHESIA: Topical with monitored anesthesia care. DESCRIPTION OF PROCEDURE: The right eye was prepped with Betadine in the usual sterile fashion and draped. A paracentesis was performed followed by instillation of preservative-free phenylephrine admixed with lidocaine and balanced salt solution. A temporal clear corneal incision was made followed by instillation of Viscoat. The head and microscope were repositioned to visualize the anterior chamber angle and a goniotomy was done in the nasal quadrant. The head and microscope were repositioned and a capsulorrhexis was performed, followed by hydrodissection. The phacoemulsification handpiece was used to remove the nucleus in a modified stop and chop fashion. The I/A handpiece was used to remove the cortex. Viscoelastic was injected in the capsular bag, and an Cj model [id number] with a power of 20.5 diopters was placed into the capsular bag. Balanced salt solution was used to hydrate the corneal wounds and the viscoelastic evacuated with the I/A handpiece. Once no leak was noted, the patient was sent to the recovery room uneventfully and given 1000 mg of Diamox and asked to follow up in 4-5 days. She was asked to call for any questions or concerns. KERRIE DR: Cherrie TID: [id number]
== END 2020-11-30 13:23 | disposition home or self-care (01) ==
LOC: SURG 10:32
PROVIDERS: ATTEND Ophthalmology
DX: E11.36 Type 2 diabetes mellitus with diabetic cataract (principal); H25.11 Age-related nuclear cataract, right eye; H40.10X0 Unspecified open-angle glaucoma, stage unspecified; I13.2 Hypertensive heart and chronic kidney disease with heart failure and with stage 5 chronic kidney disease, or end stage renal disease; E11.22 Type 2 diabetes mellitus with diabetic chronic kidney disease; N18.6 End stage renal disease; Z99.2 Dependence on renal dialysis; I50.9 Heart failure, unspecified; I25.2 Old myocardial infarction; E78.00 Pure hypercholesterolemia, unspecified; I25.10 Atherosclerotic heart disease of native coronary artery without angina pectoris; J44.9 Chronic obstructive pulmonary disease, unspecified; K21.9 Gastro-esophageal reflux disease without esophagitis; F41.9 Anxiety disorder, unspecified; F32.9 Major depressive disorder, single episode, unspecified; E66.9 Obesity, unspecified; Z87.01 Personal history of pneumonia (recurrent); Z79.899 Other long term (current) drug therapy; Z98.890 Other specified postprocedural states
CPT/HCPCS: 65820; 66984; 82962; J0171; J0690; J1580; J3490; V2632

== ENCOUNTER 2020-12-04 19:28 | Emergency (ER) | payer MEDICAID ==
[~2020-12-04] VITALS: Ht 157.5 cm; Wt 92.7 kg
[~2020-12-04 19:28] MED LIST changes: -CIPROFLOXACIN 0.3% OPHTH SOLUTION 5ML BOTTLE. OD ONE; -IV RINGERS,LACTATED 1000ML 1,000 ML IV SCH; -LIDOCAINE 2% JELLY 6ML IN APPLICATOR. OD ONE; -PROPARACAINE 0.5% OPHTH SOLUTION 15ML BOTTLE. OD ONE
--- NOTE | 2020-12-04 21:16 | PHYS DOC ---
Past Medical History Past Medical History: Arthritis, Asthma, Diabetes-Type II, High Cholesterol, Hypertension, Renal Failure Additional Past Medical Histor: sleep apnea; ulcers; GI bleed, Stage 5 CKD, Hepatitis B, enlarged heart Past Surgical History: , Other Additional Past Surgical Histo: hiatal hernia; R chest diaylsis catheter, LEFT ARM AV FISTULA MAR 30, 2020 Smoking Status: Never Smoker Alcohol Use: None Drug Use: None General Adult EDM: Chief Complaint: WEAKNESS/GENERALIZED HPI: HPI: Patient is a 65 year old female presents for evaluation of altered mental status. Prior to arrival patient had out patient procedure at [facility]--- Patient received benadryl and solumedrol for pre-treatment of IV contrast allergy. Post procedure patient was found to be groggy and with confusion. Patient was sent to ER for evaluation. Patient has no complaints. She is A/Ox4. Patient does not want any blood work to be performed. Review of Systems: Review of Systems: Constitutional: Denies fever or chills. [] Eyes: Denies change in visual acuity. [] HENT: Denies nasal congestion or sore throat. [] Respiratory: Denies cough or shortness of breath. [] Cardiovascular: Denies chest pain or edema. [] GI: Denies abdominal pain, nausea, vomiting, bloody stools or diarrhea. [] : Denies dysuria. [] Musculoskeletal: Denies back pain or joint pain. [] Integument: Denies rash. [] Neurologic: Denies headache, focal weakness or sensory changes. [] Endocrine: Denies polyuria or polydipsia. [] Lymphatic: Denies swollen glands. [] Psychiatric: Denies depression or anxiety. [] Heart Score: C/O Chest Pain: N/A Risk Factors: Risk Factors: DM, Current or recent (<one month) smoker, HTN, HLP, family history of CAD, obesity. Risk Scores: Score 0 - 3: 2.5% MACE over next 6 weeks - Discharge Home Score 4 - 6: 20.3% MACE over next 6 weeks - Admit for Clinical Observation Score 7 - 10: 72.7% MACE over next 6 weeks - Early Invasive Strategies Allergies: Allergies: Allergies Coded Allergies Type Severity Reaction Last Updated Verified No Known Medication Allergies Allergy Unknown 11/30/20 Yes Iodinated Contrast Media Adverse Reaction Intermediate Nausea and Vomiting 11/30/20 Yes Physical Exam: PE: Constitutional: Well developed, well nourished, no acute distress, non-toxic appearance. [] HENT: Normocephalic, atraumatic, bilateral external ears normal, oropharynx moist, no oral exudates, nose normal. [] Eyes: PERRLA, EOMI, conjunctiva normal, no discharge. [] Neck: Normal range of motion, no tenderness, supple, no stridor. [] Cardiovascular:Heart rate regular rhythm, no murmur [] Lungs & Thorax: Bilateral breath sounds clear to auscultation [] Abdomen: Bowel sounds normal, soft, no tenderness, no masses, no pulsatile masses. [] Skin: Warm, dry, no erythema, no rash. [] Back: No tenderness, no CVA tenderness. [] Extremities: No tenderness, no cyanosis, no clubbing, ROM intact, no edema. [] Neurologic: Alert and oriented X 3, normal motor function, normal sensory function, no focal deficits noted. [] Psychologic: Affect normal, judgement normal, mood normal. [] Current Patient Data: Vital Signs: Vital Signs Date Time Temp Pulse Resp B/P (MAP) Pulse Ox O2 Delivery O2 Flow Rate FiO2 12/04/20 19:31 98.8 89 20 213/92 (119) 93 Room Air 98.8 EKG: EKG: [] Radiology/Procedures: Radiology/Procedures: [] Course & Med Decision Making: Course & Med Decision Making Pertinent Labs and Imaging studies reviewed. (See chart for details) []Patient was observed for > 4 hours. Daughter states patient seems back to baseline. Discharged home in care of daughter. Dragon Disclaimer: Germania Disclaimer: This electronic medical record was generated, in whole or in part, using a voice recognition dictation system. Departure Departure Impression: Primary Impression: Medication reaction Disposition: 01 HOME / SELF CARE / HOMELESS Condition: STABLE Referrals: RICKY PORTILLO MD (PCP) Patient Instructions: Altered Mental Status Additional Instructions: Medication Reaction. Drowsy and Contusion due to medications. BLAKE PENALOZA DO Dec 04, 2020 21:16
[2020-12-04 23:15] VITALS: BP 192/96
== END 2020-12-05 00:10 | disposition home or self-care (01) ==
LOC: ER 19:28
DX: R41.82 Altered mental status, unspecified (principal); T38.0X5A Adverse effect of glucocorticoids and synthetic analogues, initial encounter; T45.0X5A Adverse effect of antiallergic and antiemetic drugs, initial encounter; I12.9 Hypertensive chronic kidney disease with stage 1 through stage 4 chronic kidney disease, or unspecified chronic kidney disease; E11.22 Type 2 diabetes mellitus with diabetic chronic kidney disease; N18.9 Chronic kidney disease, unspecified; E78.00 Pure hypercholesterolemia, unspecified; Z98.890 Other specified postprocedural states; J45.909 Unspecified asthma, uncomplicated; Z91.041 Radiographic dye allergy status; Y92.89 Other specified places as the place of occurrence of the external cause
CPT/HCPCS: 99285-25

== ENCOUNTER 2021-03-02 19:29 | Emergency (ER) | payer MEDICAID ==
[~2021-03-02] VITALS: Ht 152.4 cm; Wt 91.4 kg
--- NOTE | 2021-03-02 19:49 | PHYS DOC ---
Past Medical History Past Medical History: Arthritis, Asthma, CHF, Diabetes-Type II, High Chol esterol, Hypertension, Renal Failure Additional Past Medical Histor: sleep apnea; ulcers; GI bleed, Stage 5 CKD, Hepatitis B, enlarged heart, Past Medical History Hemodialysis Past Surgical History: , Other Additional Past Surgical Histo: hiatal hernia; R chest diaylsis catheter, LEFT ARM AV FISTULA MAR 30, 2020 Smoking Status: Current Every Day Smoker Alcohol Use: None Drug Use: None General Adult HPI: HPI: Patient is a 65-year-old female that presents today via [facility], with having a near syncopal episode. [place] about 3 to 4 hours ago she started feeling not well and felt like she was going to pass out, she states she went to one of the restaurants to eat and she found that they were closed and then called 911. Patient states her last meal was around 9 AM this morning, she stated that she did have some fluids throughout the day she had some small cups of water couple coffee and some Imtiaz- Aid with her breakfast this morning. Patient denies chest pain, she does state that she is short of breath but she is short of breath all the time because she has COPD, patient currently does smoke as well. Review of Systems: Review of Systems: Constitutional: Denies fever or chills. [] Eyes: Denies change in visual acuity. [] HENT: Denies nasal congestion or sore throat. [] Respiratory: Denies cough or shortness of breath. [] Cardiovascular: Denies chest pain or edema. [] GI: Denies abdominal pain, nausea, vomiting, bloody stools or diarrhea. [] : Denies dysuria. [] Musculoskeletal: Denies back pain or joint pain. [] Integument: Denies rash. [] Neurologic: Near syncopal [] Endocrine: Denies polyuria or polydipsia. [] Lymphatic: Denies swollen glands. [] Psychiatric: Denies depression or anxiety. [] Heart Score: C/O Chest Pain: N/A Risk Factors: Risk Factors: DM, Current or recent (<one month) smoker, HTN, HLP, family history of CAD, obesity. Risk Scores: Score 0 - 3: 2.5% MACE over next 6 weeks - Discharge Home Score 4 - 6: 20.3% MACE over next 6 weeks - Admit for Clinical Observation Score 7 - 10: 72.7% MACE over next 6 weeks - Early Invasive Strategies Allergies: Allergies: Allergies Coded Allergies Type Severity Reaction Last Updated Verified No Known Medication Allergies Allergy Unknown 11/30/20 Yes Iodinated Contrast Media Adverse Reaction Intermediate Nausea and Vomiting 11/30/20 Yes Physical Exam: PE: Constitutional: Well developed, well nourished, no acute distress, non-toxic appearance. [] HENT: Normocephalic, atraumatic, bilateral external ears normal, oropharynx mo ist, no oral exudates, nose normal. [] Eyes: PERRLA, EOMI, conjunctiva normal, no discharge. [] Neck: Normal range of motion, no tenderness, supple, no stridor. [] Cardiovascular:Heart rate regular rhythm, no murmur [] Lungs & Thorax: Bilateral breath sounds clear to auscultation, shortness of air Abdomen: Bowel sounds normal, soft, no tenderness, no masses, no pulsatile masses. [] Skin: Warm, dry, no erythema, no rash. [] Back: No tenderness, no CVA tenderness. [] Extremities: No tenderness, no cyanosis, no clubbing, ROM intact, no edema. [] Neurologic: Alert and oriented X 3, normal motor function, normal sensory function, no focal deficits noted. [] Psychologic: Affect normal, judgement normal, mood normal. [] Current Patient Data: Labs: Laboratory Tests Test 03/02/21 20:29 White Blood Count 7.4 x10^3/uL Red Blood Count 4.76 x10^6/uL Hemoglobin 12.2 g/dL Hematocrit 38.6 % Mean Corpuscular Volume 81 fL Mean Corpuscular Hemoglobin 26 pg Mean Corpuscular Hemoglobin Concent 32 g/dL Red Cell Distribution Width 16.4 % Platelet Count 193 x10^3/uL Neutrophils (%) (Auto) 72 % Lymphocytes (%) (Auto) 17 % Monocytes (%) (Auto) 8 % Eosinophils (%) (Auto) 2 % Basophils (%) (Auto) 1 % Neutrophils # (Auto) 5.3 x10^3/uL Lymphocytes # (Auto) 1.2 x10^3/uL Monocytes # (Auto) 0.6 x10^3/uL Eosinophils # (Auto) 0.2 x10^3/uL Basophils # (Auto) 0.1 x10^3/uL Sodium Level 137 mmol/L Potassium Level 4.5 mmol/L Chloride Level 103 mmol/L Carbon Dioxide Level 27 mmol/L Anion Gap 7 Blood Urea Nitrogen 32 mg/dL Creatinine 5.0 mg/dL Estimated GFR (Cockcroft-Gault) 10.5 Glucose Level 142 mg/dL Calcium Level 9.3 mg/dL Vital Signs: Vital Signs Date Time Temp Pulse Resp B/P (MAP) Pulse Ox O2 Delivery O2 Flow Rate FiO2 03/02/21 20:04 75 20 179/84 (115) 97 Room Air 03/02/21 19:29 98.4 75 20 153/74 (100) 95 Room Air 98.4 EKG: EKG: [] Radiology/Procedures: Radiology/Procedures: [] Course & Med Decision Making: Course & Med Decision Making Pertinent Labs and Imaging studies reviewed. (See chart for details) Patient has no other complaints except for not feeling well because of not eating, EMS got a blood sugar of 167 upon their arrival to the scene. We will give patient a boxed lunch here and see how she feels after eating [] 2024 spoke to patient patient states feeling better, conferred with Dr. Farrar who feels basic labs are in order just to rule out any other concerns due to her hemodialysis status. Will check basic labs 2051 labs reviewed all within normal limits for patient potassium is 5.0. Will discharge patient with strict instructions to return or call 911 again if starting to have the same feeling again Germania Disclaimer: Germania Disclaimer: This electronic medical record was generated, in whole or in part, using a voice recognition dictation system. Departure Departure Impression: Primary Impression: Near syncope Disposition: HOME / SELF CARE / HOMELESS Condition: STABLE Referrals: RICKY PORTILLO MD Patient Instructions: Near-Syncope Additional Instructions: Make sure you eat 3 meals daily and have snacks available if not go to be eating regular meals. Continue taking taking your current medications as prescribed Return to the emergency department if you experience chest pain, near fainting experience again, or feel that your blood sugar is getting low. JUDITH MELENDEZ [employer] Mar 02, 2021 19:49
[2021-03-02 20:04] VITALS: BP 179/84
[2021-03-02 20:40] LABS: BASO # 0.1 x10^3/uL (0.0-0.2); BASO % 1 % (0-3); EOS # 0.2 x10^3/uL (0.0-0.7); EOS % 2 % (0-3); HEMATOCRIT 38.6 % (36.0-47.0); HEMOGLOBIN 12.2 g/dL (12.0-15.5); LYMPH # 1.2 x10^3/uL (1.0-4.8); LYMPH % 17 % (24-48); MEAN CORPUSCULAR HEMOGLOBIN 26 pg (25-35); MEAN CORPUSCULAR HGB CONC 32 g/dL (31-37); MEAN CORPUSCULAR VOLUME 81 fL (79-100); MONO # 0.6 x10^3/uL (0.0-1.1); MONO % 8 % (0-9); NEUT # 5.3 x10^3/uL (1.8-7.7); NEUT % 72 % (31-73); PLATELET COUNT 193 x10^3/uL (140-400); RED BLOOD COUNT 4.76 x10^6/uL (3.50-5.40); RED CELL DISTRIBUTION WIDTH 16.4 % (11.5-14.5); WHITE BLOOD COUNT 7.4 x10^3/uL (4.0-11.0)
[2021-03-02 20:46] LABS: CALCIUM 9.3 mg/dL (8.5-10.1); GFR 10.5; POTASSIUM 4.5 mmol/L (3.5-5.1)
== END 2021-03-02 21:05 | disposition home or self-care (01) ==
LOC: ER 19:29
DX: R55 Syncope and collapse (principal); R06.02 Shortness of breath; E78.00 Pure hypercholesterolemia, unspecified; E11.22 Type 2 diabetes mellitus with diabetic chronic kidney disease; I13.2 Hypertensive heart and chronic kidney disease with heart failure and with stage 5 chronic kidney disease, or end stage renal disease; N18.5 Chronic kidney disease, stage 5; I50.9 Heart failure, unspecified; Z99.2 Dependence on renal dialysis; J44.9 Chronic obstructive pulmonary disease, unspecified; F17.200 Nicotine dependence, unspecified, uncomplicated; Z98.890 Other specified postprocedural states; Z91.041 Radiographic dye allergy status
CPT/HCPCS: 36415; 80048; 85025; 99284